=== PATIENT | male | born 1940 | race Caucasian/White ===

== ENCOUNTER → 2017-08-27 | Outpatient (CLI) | payer MEDICARE ==
--- NOTE | 2017-08-27 13:10 | US ---
EXAMINATION TYPE: US venous doppler duplex LE DATE OF EXAM: 08/27/2017 12:52 PM COMPARISON: NONE CLINICAL HISTORY: R60.9 Edema;Bilateral lower leg edema and skin ulcerations with left skin redness. SIDE PERFORMED: Bilateral TECHNIQUE: The lower extremity deep venous system is examined utilizing real time linear array sonog ana luisa with graded compression, doppler sonography and color-flow sonography. VESSELS IMAGED: Common Femoral Vein Deep Femoral Vein Greater Saphenous Vein * Femoral Vein Popliteal Vein Small Saphenous Vein * Proximal Calf Veins (* superficial vessels) Grayscale, color doppler, spectral doppler imaging performed of the deep veins of the lower extremiti es. There is normal flow, compressibility, vascular waveforms. Right Leg: Negative for DVT Left Leg: Negative for DVT Bilateral lower leg edema channels are noted. IMPRESSION: No evidence for a DVT.
== END | disposition home or self-care (01) ==
LOC: RADUSWWP 11:45
PROVIDERS: ATTEND Family Medicine
DX: R60.9 Edema, unspecified (principal)
CPT/HCPCS: 93970

== ENCOUNTER 2018-10-03 12:46 | Inpatient (IN) | payer MEDICARE ==
[2018-10-03] MEDS ORDERED: IPRATROPIUM-ALBUTEROL 3 ML NEB INHALATION STA (13:20)
[2018-10-03] MEDS ORDERED: methylPREDNISolone SOD SUCCI 125 MG/2 ML VIAL IV STA (13:20)
--- NOTE | 2018-10-03 13:25 | ED ---
General Adult HPI - General Chief complaint: Shortness of Breath Stated complaint: Diff Breathing Time Seen by Provider: 10/03/18 13:05 Source: patient, RN notes reviewed Mode of arrival: wheelchair Limitations: no limitations - History of Present Illness Initial comments: Patient is a pleasant 78-year-old male presenting to the emergency department with difficulty breathing. Symptoms started several days ago. Patient concerned he could have pneumonia. Patient was seen by Dr. Mitchell who did transfer the patient to the emergency department. Patient states he does have occasional cough that is nonproductive. Patient denies any fevers. No chest pain. No leg pain or leg swelling. Patient does have a history of somewhat similar symptoms previously associated with his "asthma" - Related Data Home Medications Medication Instructions Recorded Confirmed Isosorbide Dinitrate [Isordil] 40 mg PO BID 04/03/16 10/03/18 Lisinopril [Zestril] 20 mg PO HS 04/03/16 10/03/18 Simvastatin [Zocor] 20 mg PO HS 04/03/16 10/03/18 amLODIPine BESYLATE [Norvasc] 10 mg PO DAILY 04/03/16 10/03/18 traMADol HCL [Ultram] 50 mg PO QID 04/03/16 10/03/18 Albuterol Inhaler [Ventolin Hfa 1 puff INHALATION RT-QID PRN 10/03/18 10/03/18 Inhaler] Budesonide/Formoterol Fumarate 2 puff INHALATION RT-BID 10/03/18 10/03/18 [Symbicort 160-4.5 Mcg Inhaler] Lisinopril [Zestril] 10 mg PO DAILY 10/03/18 10/03/18 Naloxone HCl [Narcan] 4 mg NASAL ONCE PRN 10/03/18 10/03/18 Nitroglycerin Sl Tabs [Nitrostat] 0.4 mg SUBLINGUAL Q5M PRN 10/03/18 10/03/18 Allergies Allergy/AdvReac Type Severity Reaction Status Date / Time No Known Allergies Allergy Verified 10/03/18 12:56 Review of Systems ROS Statement: Those systems with pertinent positive or pertinent negative responses have been documented in the HPI. ROS Other: All systems not noted in ROS Statement are negative. 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 Other surgical hx: DEBRIDEMENT OF LEFT CALF/LEG, umbilical hernia repair, lumbar spine surgery. Past Anesthesia/Blood Transfusion Reactions: No Reported Reaction, Motion Sickness Past Psychological History: No Psychological Hx Reported Smoking Status: Former smoker Past Alcohol Use History: None Reported Past Drug Use History: None Reported - Past Family History Mother History Unknown: Yes Father History Unknown: Yes General Exam Limitations: no limitations General appearance: alert, in no apparent distress Head exam: Present: normocephalic Eye exam: Present: normal appearance ENT exam: Present: normal oropharynx Neck exam: Present: normal inspection Respiratory exam: Present: wheezes, decreased breath sounds Cardiovascular Exam: Present: tachycardia GI/Abdominal exam: Present: soft. Absent: tenderness Extremities exam: Present: normal inspection. Absent: pedal edema, calf tenderness Neurological exam: Present: alert Psychiatric exam: Present: normal affect, normal mood Skin exam: Present: normal color Course Vital Signs 10/03/18 10/03/18 10/03/18 12:53 13:30 13:41 Temperature 98.1 F Pulse Rate 91 123 H 126 H Respiratory 22 Rate Blood Pressure 116/50 O2 Sat by Pulse 96 Oximetry 10/03/18 10/03/18 10/03/18 13:53 14:30 14:36 Temperature Pulse Rate 124 H 114 H Respiratory 24 44 H 28 H Rate Blood Pressure 136/81 136/81 O2 Sat by Pulse 96 92 L Oximetry 10/03/18 15:00 Temperature Pulse Rate 111 H Respiratory 28 H Rate Blood Pressure 139/70 O2 Sat by Pulse 95 Oximetry - Reevaluation(s) Reevaluation #1: 10/03/18 16:15 There is concern for possible sepsis diagnosed at 1615. Blood culture and lactic acid and IV antibiotics have been ordered. EKG Findings - EKG Comments: EKG Findings:: Sinus tachycardia 125. NM 178. QRS 88. QT 376. QTc 542. Normal axis. Normal QRS. No acute ST change. Medical Decision Making - Medical Decision Making Attempting to call in nuclear medicine for VQ scan. Patient will be covered with heparin pending results. Case was discussed in detail with Dr. Edwards, covering for Dr. Mitchell, who will admit. Patient was reevaluated and updated. - Lab Data Result diagrams: 10/03/18 13:50 10/03/18 13:50 Lab Results 10/03/18 10/03/18 10/03/18 Range/Units 13:50 13:50 13:50 WBC 21.4 H (3.8-10.6) k/uL RBC 5.58 (4.30-5.90) m/uL Hgb 16.4 (13.0-17.5) gm/dL Hct 48.7 (39.0-53.0) % MCV 87.3 (80.0-100.0) fL MCH 29.4 (25.0-35.0) pg MCHC 33.7 (31.0-37.0) g/dL RDW 13.6 (11.5-15.5) % Plt Count 262 (150-450) k/uL Neutrophils % 89 % Lymphocytes % 4 % Monocytes % 5 % Eosinophils % 1 % Basophils % 0 % Neutrophils # 19.1 H (1.3-7.7) k/uL Lymphocytes # 0.8 L (1.0-4.8) k/uL Monocytes # 1.0 (0-1.0) k/uL Eosinophils # 0.2 (0-0.7) k/uL Basophils # 0.0 (0-0.2) k/uL PT (9.0-12.0) sec INR (<1.2) APTT (22.0-30.0) sec D-Dimer (<0.60) mg/L FEU Sodium 135 L (137-145) mmol/L Potassium 4.1 (3.5-5.1) mmol/L Chloride 100 (98-107) mmol/L Carbon Dioxide 23 (22-30) mmol/L Anion Gap 12 mmol/L BUN 51 H (9-20) mg/dL Creatinine 1.58 H (0.66-1.25) mg/dL Est GFR (CKD-EPI)AfAm 48 (>60 ml/min/1.73 sqM) Est GFR (CKD-EPI)NonAf 42 (>60 ml/min/1.73 sqM) Glucose 135 H (74-99) mg/dL Calcium 8.7 (8.4-10.2) mg/dL Total Bilirubin 2.1 H (0.2-1.3) mg/dL AST 88 H (17-59) U/L ALT 57 (21-72) U/L Alkaline Phosphatase 193 H (38-126) U/L Total Creatine Kinase 75 (55-170) U/L CK-MB (CK-2) 1.2 (0.0-2.4) ng/mL CK-MB (CK-2) Rel Index 1.6 Troponin I 0.065 H* (0.000-0.034) ng/mL NT-Pro-B Natriuret Pep pg/mL Total Protein 7.7 (6.3-8.2) g/dL Albumin 3.1 L (3.5-5.0) g/dL 10/03/18 10/03/18 Range/Units 13:50 13:50 WBC (3.8-10.6) k/uL RBC (4.30-5.90) m/uL Hgb (13.0-17.5) gm/dL Hct (39.0-53.0) % MCV (80.0-100.0) fL MCH (25.0-35.0) pg MCHC (31.0-37.0) g/dL RDW (11.5-15.5) % Plt Count (150-450) k/uL Neutrophils % % Lymphocytes % % Monocytes % % Eosinophils % % Basophils % % Neutrophils # (1.3-7.7) k/uL Lymphocytes # (1.0-4.8) k/uL Monocytes # (0-1.0) k/uL Eosinophils # (0-0.7) k/uL Basophils # (0-0.2) k/uL PT 11.2 (9.0-12.0) sec INR 1.2 H (<1.2) APTT 23.5 (22.0-30.0) sec D-Dimer 6.36 H (<0.60) mg/L FEU Sodium (137-145) mmol/L Potassium (3.5-5.1) mmol/L Chloride (98-107) mmol/L Carbon Dioxide (22-30) mmol/L Anion Gap mmol/L BUN (9-20) mg/dL Creatinine (0.66-1.25) mg/dL Est GFR (CKD-EPI)AfAm (>60 ml/min/1.73 sqM) Est GFR (CKD-EPI)NonAf (>60 ml/min/1.73 sqM) Glucose (74-99) mg/dL Calcium (8.4-10.2) mg/dL Total Bilirubin (0.2-1.3) mg/dL AST (17-59) U/L ALT (21-72) U/L Alkaline Phosphatase (38-126) U/L Total Creatine Kinase (55-170) U/L CK-MB (CK-2) (0.0-2.4) ng/mL CK-MB (CK-2) Rel Index Troponin I (0.000-0.034) ng/mL NT-Pro-B Natriuret Pep 1000 pg/mL Total Protein (6.3-8.2) g/dL Albumin (3.5-5.0) g/dL - Radiology Data Radiology results: image reviewed (Chest x-ray shows no acute process) Critical Care Time Critical Care Time: Yes Total Critical Care Time: 32 Disposition Clinical Impression: Acute exacerbation of chronic obstructive pulmonary disease (COPD), Sepsis Disposition: ADMITTED IP TO THIS HOSP Is patient prescribed a controlled substance at d/c from ED?: No Referrals: Mark Mitchell MD [Primary Care Provider] - 1-2 days Decision Time: 16:14
[2018-10-03 14:18] LABS: Basophils % (A) 0 %; Eosinophils # (A) 0.2 k/uL (0-0.7); Eosinophils % (A) 1 %; HCT 48.7 % (39.0-53.0); HGB 16.4 gm/dL (13.0-17.5); Lymphocytes # (A) 0.8 k/uL (1.0-4.8); Lymphocytes % (A) 4 %; MCH 29.4 pg (25.0-35.0); MCHC 33.7 g/dL (31.0-37.0); MCV 87.3 fL (80.0-100.0); Monocytes % (A) 5 %; Neutrophils # (A) 19.1 k/uL (1.3-7.7); Neutrophils % (A) 89 %; Platelet Count 262 k/uL (150-450); RBC 5.58 m/uL (4.30-5.90); RDW 13.6 % (11.5-15.5); WBC 21.4 k/uL (3.8-10.6)
--- NOTE | 2018-10-03 14:24 | XR ---
EXAMINATION TYPE: XR chest 2V DATE OF EXAM: 10/03/2018 COMPARISON: PET/CT March 24, 2016 HISTORY: Difficulty breathing, cough and congestion. History of melanoma TECHNIQUE: Frontal and lateral views of the chest are obtained. FINDINGS: There is chronic parenchymal change without suspicious focal air space opacity, pleural ef fusion, or pneumothorax seen. The cardiac silhouette size is upper limits of normal. Multilevel spur ring in thoracic spine is present. IMPRESSION: No suspicious acute pulmonary process.
[2018-10-03 14:27] LABS: Albumin 3.1 g/dL (3.5-5.0); Calcium 8.7 mg/dL (8.4-10.2); Potassium 4.1 mmol/L (3.5-5.1); Total Bilirubin 2.1 mg/dL (0.2-1.3); Total Protein 7.7 g/dL (6.3-8.2)
[2018-10-03 14:55] LABS: Creatine Kinase MB 1.2 ng/mL (0.0-2.4)
[2018-10-03 14:56] LABS: Troponin I 0.065 ng/mL (0.000-0.034)
[2018-10-03 15:08] LABS: INR 1.2 (<1.2); Partial Thromboplastin Time 23.5 sec (22.0-30.0); Prothrombin Time 11.2 sec (9.0-12.0)
[2018-10-03 15:15] LABS: D-Dimer 6.36 mg/L FEU (<0.60)
[2018-10-03] MEDS ORDERED: HEPARIN SODIUM,PORCINE 10,000 UNIT/ML 1 ML VIAL IV ONE (16:15)
[2018-10-03] MEDS ORDERED: HEPARIN SODIUM,PORCINE 5,000 UNIT/ML 1 ML VIAL IV PRN (16:15)
[2018-10-03] MEDS ORDERED: LEVOFLOXACIN 750MG-D5W PMX 750 MG in DEXTROSE/WATER 1 150ML.BAG IVPB STA (16:16)
[2018-10-03] MEDS ORDERED: IPRATROPIUM-ALBUTEROL 3 ML NEB INHALATION PRN (16:17)
[2018-10-03] MEDS ORDERED: NALOXONE 0.4 MG/ML 1 ML VIAL IV PRN (16:18)
[2018-10-03] MEDS ORDERED: SODIUM CHLORIDE 0.9% 1,000 ML IV STA (16:21)
[2018-10-03] MEDS ORDERED: NITROGLYCERIN SL TABS 0.4 MG TAB SUBLINGUAL PRN (18:07)
[2018-10-03] MEDS ORDERED: NON-FORMULARY DRUG (Naloxone Hcl [Narcan] 4 MG) NASAL PRN (18:07)
[2018-10-03] MEDS ORDERED: ACETAMINOPHEN TAB 500 MG TAB PO PRN (18:10)
[2018-10-03] MEDS ORDERED: ALPRAZolam 0.25 MG TAB PO PRN (18:10)
[2018-10-03] MEDS: methylPREDNISolone SOD SUCCI 125 MG/2 ML VIAL IV SCH ×2 (18:29→22:58)
[2018-10-03] MEDS: HEPARIN SOD,PORK IN 0.45% NACL 25,000 UNIT in 0.45% NACL 1 500ML.BAG IV SCH (18:33)
[2018-10-03] MEDS: IPRATROPIUM-ALBUTEROL 3 ML NEB INHALATION SCH (19:43)
[2018-10-03] MEDS: traMADol 50 MG TAB PO SCH ×2 (19:50→22:52)
[2018-10-03] MEDS: LISINOPRIL 20 MG TAB PO SCH (19:50)
[2018-10-03] MEDS: ATORVASTATIN 10 MG TAB PO SCH (19:50)
[2018-10-03] MEDS: INSULIN ASPART 100 UNIT/ML 1 ML 10 ML VIAL SQ SCH (20:57)
[2018-10-03 20:58] LABS: Glucose,Whole Blood 122 mg/dL (75-99)
--- NOTE | 2018-10-03 21:14 | HP ---
HISTORY AND PHYSICAL DATE OF SERVICE: 10/03/2018 CHIEF COMPLAINT: Shortness of breath with cough. HISTORY OF PRESENT ILLNESS: This 78-year-old gentleman with past medical history of multiple medical problems including asthma, CVA, hypertension, hyperlipidemia, myocardial infarction, history of DJD, history of CVA, hernia surgery being followed by Dr. Mitchell in the outpatient setting was not feeling well for the past several days. The patient was having increased shortness of breath and cough and sputum. Patient went to Dr. Mitchell's office. Pneumonia was suspected. Patient recommended to follow with the ER. WBC elevated 21.4. Creatinine is 1.58. Plasma lactic acid 2.5 and AST is 88 and troponin is only 0.065 and patient was admitted to the hospital for further evaluation and treatment. There is no history of chest pain. No history of palpitations, headache, loss of consciousness or seizures. PAST MEDICAL HISTORY: History of COPD, history of CVA, TIA, hypertension, hyperlipidemia, history of DJD, history of appendectomy, hernia repair, MEDICATIONS ARE: Prior to admission include: 1. Ultram 50 mg q.i.d. 2. Norvasc 10 mg p.o. daily. 3. Zocor 20 mg q.h.s. 4. Nitro 0.4 sublingual p.r.n. 5. Narcan 0.4 mg p.r.n. 6. Zestril 10 mg. 7. Zestril 20 mg q.h.s. 8. Isordil 40 mg daily. 9. Symbicort 160/4.5 two puffs b.i.d. 10.Ventolin 1 puff q.i.d. p.r.n. ALLERGIES: None. FAMILY HISTORY: Family history unknown. SOCIAL HISTORY: Previous history of smoking. No history of current smoking. No alcohol intake. REVIEW OF SYSTEMS: ENT: Diminished hearing. Diminished vision. CARDIOVASCULAR: Mentioned earlier. RESPIRATORY: As mentioned earlier. GI: No nausea or vomiting. no dysuria. Nervous System: No numbness or weakness. Allergy/Immunology: Mentioned earlier. Musculoskeletal: As mentioned earlier. Hematology/Oncology: No history of anemia. Endocrine: No history of diabetes or hypothyroidism. CONSTITUTIONAL: As mentioned earlier. Dermatology: Negative. Rheumatology: Negative. Psychiatry: As mentioned earlier. PHYSICAL EXAMINATION: Alert and oriented times three. Pulse is 101. Blood pressure 149/77, respiration 29, temperature normal, pulse ox is 94% on room air. HEENT: Conjunctivae normal. Oral mucosa moist. Neck is no jugular venous distention. No carotid bruit. No lymph node enlargement. CARDIOVASCULAR SYSTEM: S1, S2 muffled. RESPIRATORY SYSTEM: Breath sounds diminished at the bases. A few scattered rhonchi and crackles. Breathing efforts increased. ABDOMEN: Soft, nontender. No mass palpable. Legs no edema. No swelling. NERVOUS SYSTEM: Higher functions as mentioned earlier. Moves all 4 limbs. No focal motor or sensory deficits. Lymphatics: No lymph nodes palpable in the neck, axillae or groin. SKIN: No ulcer, rash or bleeding. LAB STUDIES: WBC 21.4, sodium 135, creatinine 1.5. ASSESSMENT: 1. Shortness of breath with possibly asthma, chronic obstructive pulmonary disease, acute exacerbation with possible acute purulent tracheobronchitis or bronchopneumonia. 2. Increased WBC. 3. Increased D-dimer. 4. Hyponatremia. 5. Increased creatinine with chronic kidney stage III. 6. Increased plasma lactic acid. 7. Increased AST. 8. Troponin 0.06 indeterminate. 9. Remote history of nicotine dependence. 10.History of hypertension. 11.History of hyperlipidemia. 12.History of degenerative joint disease. 13.History of coronary artery disease. 14.Myocardial infarction. 15.History of cerebrovascular accident with left-sided weakness. 16.Wound of the left lower leg. 17.History of melanoma. RECOMMENDATIONS AND DISCUSSION: In this 78-year-old gentleman who presented with multiple complex medical issues , we will monitor the patient closely, continue the current medications, management and symptomatic treatment. We will initiate broad-spectrum antibiotics, bronchodilators, steroids have been initiated. Recommend pulmonary consultation. Cardiology has been consulted because of the elevated troponin. The EKG done in the ER showed tachycardia, probably sinus tachycardia. Recommend to continue the current medications. I would also recommend a 2D echo with Doppler in the morning along with Cardiology. Prognosis guarded because of multiple complex medical issues. DVT prophylaxis. scale. Further recommendations to follow. Discussed with the patient. MMODL / IJN: [id number] / MTDD
[2018-10-03 21:23] LABS: Creatine Kinase MB 1.3 ng/mL (0.0-2.4)
[2018-10-03] MEDS ORDERED: SODIUM CHLORIDE 0.9% 500 ML 500 ML IV ONE (21:24)
[2018-10-03 21:29] LABS: Troponin I 0.061 ng/mL (0.000-0.034)
[2018-10-03] MEDS: SODIUM CHLORIDE 0.9% 1,000 ML IV SCH (22:05)
[2018-10-03] MEDS: ISOSORBIDE DINITRATE 20 MG TAB PO SCH (22:52)
[2018-10-04 01:54] LABS: HCT 42.9 % (39.0-53.0); MCH 29.4 pg (25.0-35.0); MCHC 32.7 g/dL (31.0-37.0); MCV 89.9 fL (80.0-100.0); Platelet Count 240 k/uL (150-450); RBC 4.77 m/uL (4.30-5.90); RDW 13.9 % (11.5-15.5); WBC 19.3 k/uL (3.8-10.6)
[2018-10-04 02:10] LABS: Calcium 7.9 mg/dL (8.4-10.2)
[2018-10-04 02:26] LABS: Creatine Kinase MB 1.5 ng/mL (0.0-2.4)
[2018-10-04 02:48] LABS: Troponin I 0.037 ng/mL (0.000-0.034)
[2018-10-04 04:57] LABS: Hemoglobin A1C 5.9 % (4.0-6.0)
[2018-10-04] MEDS: HEPARIN SOD,PORK IN 0.45% NACL 25,000 UNIT in 0.45% NACL 1 500ML.BAG IV SCH ×2 (06:20→16:26)
[2018-10-04] MEDS: methylPREDNISolone SOD SUCCI 125 MG/2 ML VIAL IV SCH ×3 (06:20→18:12)
[2018-10-04] MEDS: PANTOPRAZOLE 40 MG TABLET PO SCH (06:21)
[2018-10-04 06:31] LABS: Basophils % (A) 0 %; Eosinophils % (A) 0 %; HCT 42.7 % (39.0-53.0); HGB 14.3 gm/dL (13.0-17.5); Lymphocytes # (A) 0.7 k/uL (1.0-4.8); Lymphocytes % (A) 3 %; MCH 29.8 pg (25.0-35.0); MCHC 33.4 g/dL (31.0-37.0); MCV 89.2 fL (80.0-100.0); Monocytes # (A) 0.5 k/uL (0-1.0); Monocytes % (A) 2 %; Neutrophils # (A) 18.7 k/uL (1.3-7.7); Neutrophils % (A) 93 %; Platelet Count 225 k/uL (150-450); RBC 4.79 m/uL (4.30-5.90); RDW 13.8 % (11.5-15.5)
[2018-10-04 06:34] LABS: Glucose,Whole Blood 144 mg/dL (75-99)
[2018-10-04 06:38] LABS: Albumin 2.6 g/dL (3.5-5.0); Potassium 3.7 mmol/L (3.5-5.1); Total Bilirubin 0.9 mg/dL (0.2-1.3); Total Protein 6.4 g/dL (6.3-8.2)
[2018-10-04] MEDS: INSULIN ASPART 100 UNIT/ML 1 ML 10 ML VIAL SQ SCH ×4 (06:45→20:42)
[2018-10-04] MEDS: amLODIPine 10 MG TAB PO SCH (09:35)
[2018-10-04] MEDS: ISOSORBIDE DINITRATE 20 MG TAB PO SCH ×2 (09:35→20:51)
[2018-10-04] MEDS: LISINOPRIL 10 MG TAB PO SCH (09:35)
[2018-10-04] MEDS: IPRATROPIUM-ALBUTEROL 3 ML NEB INHALATION SCH ×4 (09:50→19:57)
[2018-10-04 11:34] LABS: Glucose,Whole Blood 150 mg/dL (75-99)
[2018-10-04] MEDS: traMADol 50 MG TAB PO SCH ×4 (12:31→21:51)
--- NOTE | 2018-10-04 14:37 | ECHOF ---
Referral Reason:chf MEASUREMENTS -------- HEIGHT: 182.9 cm WEIGHT: 118.8 kg BP: 111/60 IVSd: 1.5 cm (0.6 - 1.1) LVIDd: 4.1 cm (3.9 - 5.3) LVPWd: 1.6 cm (0.6 - 1.1) EDV(Teich): 76 ml IVSs: 2.0 cm LVIDs: 3.0 cm LVPWs: 1.8 cm %IVS Thck: 33 % ESV(Teich): 35 ml EF(Teich): 54 % %FS: 28 % SV(Teich): 41 ml LA Diam: 3.2 cm (2.7 - 3.8) RVIDd: 4.1 cm (< 3.3) Ao Diam: 3.9 cm (2.0 - 3.7) AV Cusp: 2.4 cm (1.5 - 2.6) EPSS: 1.0 cm MV E Seth: 0.75 m/s MV DecT: 305 ms MV Dec Hale: 2.4 m/s MV A Seth: 1.00 m/s MV E/A Ratio: 0.75 MV PHT: 88 ms AV Vmax: 1.68 m/s AV maxP.30 mmHg MV EF SLOPE: 92.03 mm/s (70 - 150) MV EXCURSION: 19.09 mm (> 18.000) FINDINGS -------- Sinus rhythm. This was a technically difficult study with suboptimal views. The left ventricular size is normal. There is moderate concentric left ventricular hypertrophy. O verall left ventricular systolic function is normal with, an EF between 55 - 60 %. The right ventricle is mild to moderately enlarged. The left atrium is normal in size. The right atrium was not well visualized. 5 ml of Lumason was utilized for enhancement of images. There is mild aortic valve sclerosis. The mitral valve is normal. The tricuspid valve was not well visualized. The pulmonic valve was not well visualized. The aortic root is dilated measuring 3.9cm. Normal inferior vena cava with normal inspiratory collapse consistent with estimated right atrial pre ssure of 5 mmHg. There is no pericardial effusion. CONCLUSIONS -------- 1. Sinus rhythm. 2. This was a technically difficult study with suboptimal views. 3. The left ventricular size is normal. 4. There is moderate concentric left ventricular hypertrophy. 5. Overall left ventricular systolic function is normal with, an EF between 55 - 60 %. 6. The right ventricle is mild to moderately enlarged. 7. The left atrium is normal in size. 8. The right atrium was not well visualized. 9. 5 ml of Lumason was utilized for enhancement of images. 10. There is mild aortic valve sclerosis. 11. The mitral valve is normal. 12. The tricuspid valve was not well visualized. 13. The pulmonic valve was not well visualized. 14. The aortic root is dilated measuring 3.9cm. 15. Normal inferior vena cava with normal inspiratory collapse consistent with estimated right atrial pressure of 5 mmHg. 16. There is no pericardial effusion. HEMMER LOCKSTITCH: Francoise Rogers RDCS
--- NOTE | 2018-10-04 14:59 | P.CNPUL ---
History of Present Illness Consult date: 10/04/18 Requesting physician: Joan Edwards Reason for consult: dyspnea Chief complaint: Shortness of breath, mild cough History of present illness: This is 78-year-old white male patient of Dr. Mitchell, who into the emergency department on 10/03/2018 for evaluation of 2 week history of increased shortness of breath that was not getting any better, some mild cough. Patient was concerned about a possibility of pneumonia. Did see Dr. Mitchell who directed the patient for evaluation in the emergency department. Patient's cough is nonproductive, patient denies any fever or chills, no chest tenderness, no hemoptysis. Patient is an ex-smoker, he quit smoking in 1992, but prior to that smoked for 50 years at 1-1/2 packs daily. 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 Patient 9 any urinary symptoms, he does have a wound on his left toe which is draining. He apparently goes for treatments at [facility] wound [facility]. Chest x-ray showed no suspicious acute pulmonary process. Lab work on admission did show leukocytosis, with WBC of 21.4, hemoglobin was 16.4, INR was 1.2, d-dimer was +6.36, sodium was 135, the rest of electrolytes were within normal limits, BUN was 51 and creatinine was 1.58. Patient had mild lactic acidosis with a lactic acid of 2.5, which subsequently increased to 3.0, and is currently within normal limit at 1.8 after fluid resuscitation, patient did have positive troponins of 0.065, 0.061, 0.037. he denied any chest pain. EKG showed sinus tachycardia, patient has been afebrile. 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 Echocardiogram was obtained and showed EF of 55-60%. During her evaluation patient is awake and alert, sitting up on the edge of the bed, in no acute distress. He states his shortness of breath is improving, no fever, no chills, has an occasional mild nonproductive cough. He on IV heparin infusion at 18 units per kilo per hour, and 0.9 normal saline at a rate of 50 ML per hour, and antibiotic coverage includes Levaquin. Lung sounds are clear to auscultation, no wheezing, no rhonchi no rales noted. Patient is on Symbicort and albuterol inhaler at home. No oxygen on a regular basis. Review of Systems All systems: negative Constitutional: Denies chills, Denies fever Eyes: denies blurred vision, denies pain Ears, nose, mouth and throat: Denies headache, Denies sore throat Cardiovascular: Denies chest pain, Denies shortness of breath Respiratory: Reports dyspnea, Denies cough Gastrointestinal: Denies abdominal pain, Denies diarrhea, Denies nausea, Denies vomiting Musculoskeletal: Denies myalgias Integumentary: Denies pruritus, Denies rash Neurological: Denies numbness, Denies weakness Psychiatric: Denies anxiety, Denies depression Endocrine: Denies fatigue, Denies weight change Past Medical History Past Medical History: Asthma, CVA/TIA, Hyperlipidemia, Hypertension, Myocardial Infarction ([place]), Osteoarthritis (OA) Additional Past Medical History / Comment(s): CVA 1992-left side weakness- uses mostly the wheelchair but able to use cane/walker as well, pastwound on lower left leg- treated at [facility] wound center,past venous leg ulcers melanoma back and basal skin cancer L shoulder. Last Myocardial Infarction Date:: 2008 History of Any Multi-Drug Resistant Organisms: None Reported Date of last positivie culture/infection: 04/03/16 MDRO Source:: LEFT LEG Past Surgical History: Appendectomy, Hernia Repair, Orthopedic Surgery Additional Past Surgical History / Comment(s): 05/01/16 Wide exicision melanoma back, excision lesion L shoulder basal cancer. Other surgical hx: DEBRIDEMENT OF LEFT CALF/LEG, umbilical hernia repair, lumbar spine surgery. Past Anesthesia/Blood Transfusion Reactions: No Reported Reaction, Motion Sickness Smoking Status: Former smoker - Past Family History Mother History Unknown: Yes Father History Unknown: Yes Medications and Allergies Home Medications Medication Instructions Recorded Confirmed Type Isosorbide Dinitrate [Isordil] 40 mg PO BID 04/03/16 10/03/18 History Lisinopril [Zestril] 20 mg PO HS 04/03/16 10/03/18 History Simvastatin [Zocor] 20 mg PO HS 04/03/16 10/03/18 History amLODIPine BESYLATE [Norvasc] 10 mg PO DAILY 04/03/16 10/03/18 History traMADol HCL [Ultram] 50 mg PO QID 04/03/16 10/03/18 History Albuterol Inhaler [Ventolin Hfa 1 puff INHALATION RT-QID PRN 10/03/18 10/03/18 History Inhaler] Budesonide/Formoterol Fumarate 2 puff INHALATION RT-BID 10/03/18 10/03/18 History [Symbicort 160-4.5 Mcg Inhaler] Lisinopril [Zestril] 10 mg PO DAILY 10/03/18 10/03/18 History Naloxone HCl [Narcan] 4 mg NASAL ONCE PRN 10/03/18 10/03/18 History Nitroglycerin Sl Tabs [Nitrostat] 0.4 mg SUBLINGUAL Q5M PRN 10/03/18 10/03/18 History Allergies Allergy/AdvReac Type Severity Reaction Status Date / Time No Known Allergies Allergy Verified 10/03/18 12:56 Physical Exam Vitals: Vital Signs Temp Pulse Pulse Resp BP BP Pulse Ox 10/04/18 12:00 90 18 114/60 96 10/04/18 10:01 95 10/04/18 09:50 100 10/04/18 08:00 97.7 F 90 20 117/55 97 10/04/18 03:53 97.8 F 99 18 111/60 97 10/03/18 22:55 98.3 F 89 20 131/71 97 10/03/18 20:00 97.8 F 95 24 130/69 97 10/03/18 19:51 92 10/03/18 19:43 89 18 95 10/03/18 19:07 98.3 F 10/03/18 18:30 112 H 26 H 129/92 96 10/03/18 18:00 112 H 20 120/76 96 10/03/18 17:30 105 H 28 H 120/76 97 10/03/18 17:00 104 H 28 H 140/97 95 10/03/18 16:30 101 H 29 H 140/97 94 L 10/03/18 16:00 110 H 24 109/67 95 10/03/18 15:30 104 H 28 H 109/67 94 L 10/03/18 15:00 111 H 28 H 139/70 95 Intake and Output 10/03/18 10/04/18 10/04/18 22:59 06:59 14:59 Intake Total 201.93 298.07 590.114 Output Total 310 Balance 201.93 -11.93 590.114 Intake: IV 20 Invasive Line 1 20 Intake, IV Titration 201.93 298.07 150.114 Amount Heparin Sod,Pork in 0.45% 201.93 298.07 150.114 NaCl 25,000 unit In 0.45 % NaCl 1 500ml.bag @ 16 UNITS/KG/HR 45.72 mls/hr IV .[id number] [facility] Rx#: [id number] Oral 420 Output: Urine 310 Other: Voiding Method Diaper Diaper Diaper # Voids 1 1 2 # Bowel Movements 1 1 Weight 119 kg 147 kg GENERAL EXAM: Alert, pleasant, 78-year-old obese white male comfortable in no apparent distress. HEAD: Normocephalic/atraumatic. EYES: Normal reaction of pupils, equal size. Conjunctiva pink, sclera white. NOSE: Clear with pink turbinates. THROAT: No erythema or exudates. NECK: No masses, no JVD, no thyroid enlargement, no adenopathy. CHEST: No chest wall deformity. Symmetrical expansion. LUNGS: Equal air entry with no crackles, wheeze, rhonchi or dullness. CVS: Regular rate and rhythm, normal S1 and S2, no gallops, no murmurs, no rubs ABDOMEN: Soft, nontender. No hepatosplenomegaly, normal bowel sounds, no guarding or rigidity. EXTREMITIES: No clubbing, no edema, no cyanosis, 2+ pulses and upper and lower extremities. MUSCULOSKELETAL: Muscle strength and tone normal. SPINE: No scoliosis or deformity SKIN: No rashes CENTRAL NERVOUS SYSTEM: Alert and oriented -3. No focal deficits, tone is normal in all 4 extremities. PSYCHIATRIC: Alert and oriented -3. Appropriate affect. Intact judgment and insight. Results - Laboratory Findings CBC and BMP: 10/04/18 06:02 10/04/18 06:02 PT/INR, D-dimer PT 11.2 sec (9.0-12.0) 10/03/18 13:50 INR 1.2 (<1.2) H 10/03/18 13:50 D-Dimer 6.36 mg/L FEU (<0.60) H 10/03/18 13:50 Abnormal lab findings: Abnormal Labs 10/03/18 10/03/18 10/03/18 13:50 13:50 13:50 WBC 21.4 H Neutrophils # 19.1 H Lymphocytes # 0.8 L INR APTT D-Dimer Sodium 135 L Carbon Dioxide BUN 51 H Creatinine 1.58 H Glucose 135 H POC Glucose (mg/dL) Plasma Lactic Acid Glen Calcium Total Bilirubin 2.1 H AST 88 H Alkaline Phosphatase 193 H Troponin I 0.065 H* Albumin 3.1 L 10/03/18 10/03/18 10/03/18 13:50 13:50 20:12 WBC Neutrophils # Lymphocytes # INR 1.2 H APTT D-Dimer 6.36 H Sodium Carbon Dioxide BUN Creatinine Glucose POC Glucose (mg/dL) Plasma Lactic Acid Glen 2.5 H* Calcium Total Bilirubin AST Alkaline Phosphatase Troponin I 0.061 H* Albumin 10/03/18 10/03/18 10/03/18 20:12 20:56 22:15 WBC Neutrophils # Lymphocytes # INR APTT 60.0 H D-Dimer Sodium Carbon Dioxide BUN Creatinine Glucose POC Glucose (mg/dL) 122 H Plasma Lactic Acid Glen 3.0 H* Calcium Total Bilirubin AST Alkaline Phosphatase Troponin I Albumin 10/04/18 10/04/18 10/04/18 01:22 01:22 01:22 WBC 19.3 H Neutrophils # Lymphocytes # INR APTT D-Dimer Sodium 135 L Carbon Dioxide 21 L BUN 88 H Creatinine 1.96 H Glucose 153 H POC Glucose (mg/dL) Plasma Lactic Acid Glen Calcium 7.9 L Total Bilirubin AST Alkaline Phosphatase Troponin I 0.037 H* Albumin 10/04/18 10/04/18 10/04/18 06:02 06:02 06:02 WBC 20.0 H Neutrophils # 18.7 H Lymphocytes # 0.7 L INR APTT 45.1 H D-Dimer Sodium 136 L Carbon Dioxide 20 L BUN 92 H Creatinine 1.81 H Glucose 158 H POC Glucose (mg/dL) Plasma Lactic Acid Glen Calcium 8.0 L Total Bilirubin AST 81 H Alkaline Phosphatase 127 H Troponin I Albumin 2.6 L 12/01/18 12/01/18 06:32 11:31 WBC Neutrophils # Lymphocytes # INR APTT D-Dimer Sodium Carbon Dioxide BUN Creatinine Glucose POC Glucose (mg/dL) 144 H 150 H Plasma Lactic Acid Glen Calcium Total Bilirubin AST Alkaline Phosphatase Troponin I Albumin - Diagnostic Findings Chest x-ray: report reviewed, image reviewed Additional studies: EKG reviewed echocardiogram reviewed Assessment and Plan Plan: Assessment: #1. Dyspnea, nonproductive cough, related to mild exacerbation of chronic obstructive pulmonary disease #2. Leukocytosis, lactic acidosis, shortness of breath, related to sepsis #3. Bacteremia with gram-negative bacilli, with sepsis #4. Lactic acidosis, improved with IV hydration #5. Acute kidney injury #6. Nicotine dependence, in remission, quit in 1992, prior to that smoked for 50 years of one half packs daily #7. Elevated troponins #8. Draining chronic left toe wound #9. Chronic left leg cellulitis, and patient follows in the wound clinic #10. History of CVA, with left-sided weakness #11. Gait dysfunction, uses cane #12. Hypertension, hyperlipidemia, previous episode of myocardial infarction #13. Osteoarthritis #14. History of melanoma on his back with excision and basal cancer on his right shoulder post-excision Plan: Continue current antibiotic coverage, chest x-ray has been reviewed by Dr. Phillips , no clear evidence of pneumonia. The source of patient's sepsis is under investigation, patient does have had draining wound on his left toe, he apparently follows with the wound care clinic. May benefit from infectious disease consultation. Patient will need outpatient follow-up will need PFT for his underlying COPD. Continue nebulized bronchodilators, continue Symbicort. Tinea current antibiotics, will await results of final cultures, patient is afebrile, lactic acidosis has resolved. Seen to follow I performed a history & physical examination of the patient and discussed their management with my nurse practitioner, Jacquelyn Lugo. I reviewed the nurse practitioner's note and agree with the documented findings and plan of care. Lung sounds are positive for clear. The findings and the impression was discussed with the patient. I attest to the documentation by the nurse practitioner. Time with Patient: Greater than 30
--- NOTE | 2018-10-04 15:19 | P.CRDCN ---
History of Present Illness History of present illness: This is a pleasant 78-year-old male past medical history significant for hypertension, dyslipidemia, CVA with left-sided weakness residual, former nicotine dependence and osteoarthritis. He follows with Dr. Zaldiavr in the office. He states approximately 3 weeks ago he started coughing and feeling increasingly short of breath. He states his cough is been quite nonproductive. He went to Dr. Mitchell's the office by C was concerned about possibility of pneumonia. He was sent to the hospital for further evaluation. He is seen and examined resting comfortably in bed in no acute distress. He denies symptoms of chest pain, shortness of breath, dizziness or palpitations. Echocardiogram has been obtained and reveals preserved left ventricular systolic function with ejection fraction 55-60%. He has been diagnosed with a mild exacerbation of COPD and sepsis and is currently receiving IV antibiotics. He also has a chronic wound on the left great toe which appears to be necrotic and has a very foul odor. EKG reveals sinus tachycardia heart rate 125 on admission with no acute ST or T wave abnormalities noted. Evidence of poor R-wave progression. Chest x-ray is negative for acute cardiopulmonary process. Laboratory data reviewed, WBC 19.3, hemoglobin 14, platelets 240, sodium 136, potassium 3.7, creatinine 1.1, lactic acid on admission 3.01.8 today, troponin 0.065, 0.061 and 0.037, NT proBNP 1000. He has also occult blood positive in the stool. Current cardiac medications include isosorbide dinitrate 40 mg twice a day, lisinopril 10 mg in the morning and 20 mg at bedtime, simvastatin 20 mg daily and Norvasc 10 mg daily. At the time of my exam: CONSTITUTIONAL: Denies fever. Denies chills. EYES: Denies blurred vision. Denies vision changes. Denies eye pain. EARS, NOSE, MOUTH & THROAT: Denies headache. Denies sore throat. Denies ear pain. CARDIOVASCULAR: Denies chest pain. Denies shortness of breath. Denies orthopnea. Denies PND. Denies palpitations. RESPIRATORY: Complains of cough. GASTROINTESTINAL: Denies abdominal pain. Denies diarrhea. Denies constipation. Denies nausea. Denies vomiting. MUSCULOSKELETAL: Denies myalgias. INTEGUMENTARY: Denies pruitis. Denies rash. NEUROLOGIC: Denies numbness. Denies tingling. Denies weakness. PSYCHIATRIC: Denies anxiety. Denies depression. ENDOCRINE: Denies fatigue. Denies weight change. Denies polydipsia. Denies polyurina. GENITOURINARY: Denies burning, hematuria or urgency with micturation. HEMATOLOGIC: Denies history of anemia. Denies bleeding. Blood pressure 114/60 heart rate 90 afebrile maintaining oxygen saturation on nasal cannula GENERAL: This is a 78-year-old occasion male in no apparent distress at the time of my examination. HEENT: Head is atraumatic, normocephalic. Pupils are equal, round. Sclerae anicteric. Conjunctivae are clear. Mucous membranes of the mouth are moist. Neck is supple. There is no jugular venous distention. No carotid bruit is heard. LUNGS: Clear to auscultation no wheezes, rales or rhonchi. No chest wall tenderness is noted on palpation or with deep breathing. HEART: Regular rate and rhythm without murmurs, rubs or gallops. S1 and S2 heard. ABDOMEN: Soft, nontender. Bowel sounds are heard. No organomegaly noted. EXTREMITIES: No evidence of peripheral edema and no calf tenderness noted. VASCULAR: Radial and dorsalis pedis pulses palpated, no evidence of clubbing. Evidence of chronic wound on the left great toe. NEUROLOGIC: Patient is awake, alert and oriented x3. ASSESSMENT Acute exacerbation of COPD Leukocytosis Mild troponin leak not indicative of an acute coronary event was likely secondary to infectious process. Hypertension Dyslipidemia History of prior myocardial infarction maintained on isosorbide PLAN Continue current medical regimen. Mild troponin leak not indicative of an acute coronary event and is likely secondary to infectious process. Patient is clinically euvolemic and there is no evidence of heart failure. We will continue to follow as needed. Please feel free to call with further questions or concerns. Follow-up with Dr. Zaldivar upon discharge. Thank you kindly for this consultation. Nurse Practitioner note has been reviewed, I agree with a documented findings and plan of care. Patient was seen and examined. Past Medical History Past Medical History: Asthma, CVA/TIA, Hyperlipidemia, Hypertension, Myocardial Infarction ([place]), Osteoarthritis ([place]) Additional Past Medical History / Comment(s): CVA 1992-left side weakness- uses mostly the wheelchair but able to use cane/walker as well, pastwound on lower left leg- treated at [facility] wound center,past venous leg ulcers melanoma back and basal skin cancer L shoulder. Last Myocardial Infarction Date:: 2008 History of Any Multi-Drug Resistant Organisms: None Reported Date of last positivie culture/infection: 04/03/16 MDRO Source:: LEFT LEG Past Surgical History: Appendectomy, Hernia Repair, Orthopedic Surgery Additional Past Surgical History / Comment(s): 05/01/16 Wide exicision melanoma back, excision lesion L shoulder basal cancer. Other surgical hx: DEBRIDEMENT OF LEFT CALF/LEG, umbilical hernia repair, lumbar spine surgery. Past Anesthesia/Blood Transfusion Reactions: No Reported Reaction, Motion Sickness Smoking Status: Former smoker - Past Family History Mother History Unknown: Yes Father History Unknown: Yes Medications and Allergies Home Medications Medication Instructions Recorded Confirmed Type Isosorbide Dinitrate [Isordil] 40 mg PO BID 04/03/16 10/03/18 History Lisinopril [Zestril] 20 mg PO HS 04/03/16 10/03/18 History Simvastatin [Zocor] 20 mg PO HS 04/03/16 10/03/18 History amLODIPine BESYLATE [Norvasc] 10 mg PO DAILY 04/03/16 10/03/18 History traMADol HCL [Ultram] 50 mg PO QID 04/03/16 10/03/18 History Albuterol Inhaler [Ventolin Hfa 1 puff INHALATION RT-QID PRN 10/03/18 10/03/18 History Inhaler] Budesonide/Formoterol Fumarate 2 puff INHALATION RT-BID 10/03/18 10/03/18 History [Symbicort 160-4.5 Mcg Inhaler] Lisinopril [Zestril] 10 mg PO DAILY 10/03/18 10/03/18 History Naloxone HCl [Narcan] 4 mg NASAL ONCE PRN 10/03/18 10/03/18 History Nitroglycerin Sl Tabs [Nitrostat] 0.4 mg SUBLINGUAL Q5M PRN 10/03/18 10/03/18 History Allergies Allergy/AdvReac Type Severity Reaction Status Date / Time No Known Allergies Allergy Verified 10/03/18 12:56 Physical Exam Vitals: Vital Signs Temp Pulse Pulse Resp BP BP Pulse Ox 10/04/18 12:00 90 18 114/60 96 10/04/18 10:01 95 10/04/18 09:50 100 10/04/18 08:00 97.7 F 90 20 117/55 97 10/04/18 03:53 97.8 F 99 18 111/60 97 10/03/18 22:55 98.3 F 89 20 131/71 97 10/03/18 20:00 97.8 F 95 24 130/69 97 10/03/18 19:51 92 10/03/18 19:43 89 18 95 10/03/18 19:07 98.3 F 10/03/18 18:30 112 H 26 H 129/92 96 10/03/18 18:00 112 H 20 120/76 96 10/03/18 17:30 105 H 28 H 120/76 97 10/03/18 17:00 104 H 28 H 140/97 95 10/03/18 16:30 101 H 29 H 140/97 94 L 10/03/18 16:00 110 H 24 109/67 95 10/03/18 15:30 104 H 28 H 109/67 94 L Intake and Output 10/04/18 10/04/18 10/04/18 06:59 14:59 22:59 Intake Total 298.07 590.114 Output Total 310 Balance -11.93 590.114 Intake: IV 20 Invasive Line 1 20 Intake, IV Titration 298.07 150.114 Amount Heparin Sod,Pork in 0.45% 298.07 150.114 NaCl 25,000 unit In 0.45 % NaCl 1 500ml.bag @ 16 UNITS/KG/HR 45.72 mls/hr IV .[id number] [facility]END[facility] TO [facility] Rx#: [id number] Oral 420 Output: Urine 310 Other: Voiding Method Diaper Diaper # Voids 1 2 # Bowel Movements 1 Weight 119 kg 147 kg Results 10/04/18 06:02 10/04/18 06:02 Cardiac Enzymes 10/03/18 10/04/18 10/04/18 Range/Units 20:12 01:22 06:02 AST 81 H (17-59) U/L CK-MB (CK-2) 1.3 1.5 (0.0-2.4) ng/mL Troponin I 0.061 H* 0.037 H* (0.000-0.034) ng/mL Coagulation 10/03/18 10/03/18 10/04/18 Range/Units 13:50 22:15 06:02 PT 11.2 (9.0-12.0) sec APTT 23.5 60.0 H 45.1 H (22.0-30.0) sec CBC 10/04/18 10/04/18 Range/Units 01:22 06:02 WBC 19.3 H 20.0 H (3.8-10.6) k/uL RBC 4.77 4.79 (4.30-5.90) m/uL Hgb 14.0 14.3 (13.0-17.5) gm/dL Hct 42.9 42.7 (39.0-53.0) % Plt Count 240 225 (150-450) k/uL Comprehensive Metabolic Panel 10/04/18 10/04/18 Range/Units 01:22 06:02 Sodium 135 L 136 L (137-145) mmol/L Potassium 4.0 3.7 (3.5-5.1) mmol/L Chloride 101 104 (98-107) mmol/L Carbon Dioxide 21 L 20 L (22-30) mmol/L BUN 88 H 92 H (9-20) mg/dL Creatinine 1.96 H 1.81 H (0.66-1.25) mg/dL Glucose 153 H 158 H (74-99) mg/dL Calcium 7.9 L 8.0 L (8.4-10.2) mg/dL AST 81 H (17-59) U/L ALT 56 (21-72) U/L Alkaline Phosphatase 127 H (38-126) U/L Total Protein 6.4 (6.3-8.2) g/dL Albumin 2.6 L (3.5-5.0) g/dL Current Medications Generic Name Dose Route Start Last Admin Trade Name Freq PRN Reason Stop Dose Admin Acetaminophen 500 mg 10/03/18 18:10 Tylenol Tab PO Q6HR PRN Fever and/ or Mild Pain Hydrocodone Bitart/Acetaminophen 1 each 10/03/18 18:10 [place] 5-325 PO Q6HR PRN Moderate Pain Albuterol/Ipratropium 3 ml 10/03/18 20:00 10/04/18 13:56 Duoneb 0.5 Mg-3 Mg/3 Ml Soln INHALATION Not Given RT-QID TEO Albuterol/Ipratropium 3 ml 10/03/18 16:17 Duoneb 0.5 Mg-3 Mg/3 Ml Soln INHALATION RT-Q4H PRN Shortness Of Breath Or Wheezing Alprazolam 0.25 mg 10/03/18 18:10 Xanax PO TID PRN Anxiety Amlodipine Besylate 10 mg 10/04/18 09:00 10/04/18 09:35 Norvasc PO 10 mg DAILY TEO Administration Atorvastatin Calcium 10 mg 10/03/18 21:00 10/03/18 19:50 Lipitor PO 10 mg HS TEO Administration Heparin Sodium (Porcine) 0 unit 10/03/18 16:15 10/04/18 09:37 Heparin IV 4,000 unit PER PROTOCOL PRN Administration Low PTT Protocol Heparin Sodium/Sodium Chloride 500 mls @ 45.72 mls/hr 10/03/18 16:15 09:37 25,000 unit/ Sodium Chloride IV 18 units/kg/hr .[id number] TEO 51.43 mls/hr Titration Protocol 16 UNITS/KG/HR Levofloxacin 750 mg/ IV 150 mls @ 100 mls/hr 10/04/18 18:00 Solution IVPB Q24H TEO Sodium Chloride 1,000 mls @ 50 mls/hr 10/03/18 21:30 10/03/18 22:05 Saline 0.9% IV 50 mls/hr .Q20H TEO Administration Insulin Aspart 0 unit 10/03/18 21:00 10/04/18 12:31 Novolog SQ 1 unit ACHS TEO Administration Protocol Isosorbide Dinitrate 40 mg 10/03/18 21:00 10/04/18 09:35 Isordil PO 40 mg BID TEO Administration Lisinopril 20 mg 10/03/18 21:00 10/03/18 19:50 Zestril PO 20 mg HS TEO Administration Lisinopril 10 mg 10/04/18 09:00 10/04/18 09:35 Zestril PO 10 mg DAILY TEO Administration Methylprednisolone Sodium Succinate 60 mg 10/03/18 18:00 10/04/18 12:30 Solu-Medrol IV 60 mg Q6HR TEO Administration Naloxone HCl 0.2 mg 10/03/18 16:18 Narcan IV Q2M PRN Opioid Reversal Nitroglycerin 0.4 mg 10/03/18 18:07 Nitrostat SUBLINGUAL Q5M PRN Chest Pain Pantoprazole Sodium 40 mg 10/04/18 07:30 10/04/18 06:21 Protonix PO 40 mg [id number] TEO Administration Temazepam 15 mg 10/03/18 18:10 Restoril PO HS PRN Insomnia Tramadol HCl 50 mg 10/03/18 18:15 10/04/18 14:10 Ultram PO Not Given QID TEO Intake and Output 10/04/18 10/04/18 10/04/18 06:59 14:59 22:59 Intake Total 298.07 590.114 Output Total 310 Balance -11.93 590.114 Intake: IV 20 Invasive Line 1 20 Intake, IV Titration 298.07 150.114 Amount Heparin Sod,Pork in 0.45% 298.07 150.114 NaCl 25,000 unit In 0.45 % NaCl 1 500ml.bag @ 16 UNITS/KG/HR 45.72 mls/hr IV .[id number] [facility] Rx#: [id number] Oral 420 Output: Urine 310 Other: Voiding Method Diaper Diaper # Voids 1 2 # Bowel Movements 1 Weight 119 kg 147 kg Patient Weight 10/05/18 06:59 Weight 147 kg 10/04/18 06:02 10/04/18 06:02
[2018-10-04] MEDS: HYDROcodone/APAP 5-325MG 1 EACH TAB PO PRN (16:03)
--- NOTE | 2018-10-04 17:55 | NM ---
EXAMINATION TYPE: NM pul vent and perfuse DATE OF EXAM: 10/04/2018 COMPARISON: Chest radiograph 10/03/2018 HISTORY: Dyspnea, chest pain TECHNIQUE: Utilizing inhalation of 70 mCi Tc 99m DTPA aerosol and intravenous injection of 5.2 mCi o f Tc 99m MAA, ventilation and perfusion images are acquired post injection in multiple projections. FINDINGS: Normal radiotracer distribution is noted in the lungs. There is no evidence of mismatched defects. IMPRESSION: Low probability for pulmonary embolism. Study is compared with recent chest radiograph.
[2018-10-04] MEDS: SODIUM CHLORIDE 0.9% 1,000 ML IV SCH (18:11)
[2018-10-04] MEDS: LEVOFLOXACIN 750MG-D5W PMX 750 MG in DEXTROSE/WATER 1 150ML.BAG IVPB SCH (18:48)
[2018-10-04] MEDS: LISINOPRIL 20 MG TAB PO SCH (20:38)
[2018-10-04] MEDS: ATORVASTATIN 10 MG TAB PO SCH (20:38)
[2018-10-04 20:41] LABS: Glucose,Whole Blood 207 mg/dL (75-99)
[2018-10-05] MEDS: methylPREDNISolone SOD SUCCI 40 MG/ML 1 ML VIAL IV SCH ×2 (00:05→08:23)
--- NOTE | 2018-10-05 01:05 | PN ---
PROGRESS NOTE DATE OF SERVICE: 10/04/2018 This 78-year-old gentleman who was admitted with shortness of breath and possible asthma and CHF/COPD acute exacerbation bronchopneumonia, also had elevated D- dimer 6.36. The CT angio could not be done because of renal failure. The patient underwent a ventilation-perfusion scan today which showed low probability of pulmonary embolism. Patient being closely monitored. No chest pain. No palpitations. No fever. The blood cultures growing gram-negative bacillus. REVIEW OF SYSTEMS: CARDIOVASCULAR: No angina or palpitations. Respiration: As mentioned earlier. GI as mentioned earlier. no dysuria. MEDICATIONS: Current medications reviewed. 1. Tylenol 500 q.6h p.r.n. 2. [place] 5 mg. 3. DuoNeb q.i.d. and p.r.n. 4. Norvasc 10 mg. 5. Heparin. 6. NovoLog. 7. Isordil. 8. Levaquin 750 IV daily. 10.Solu-Medrol. 11.Nitrostat. 12.Protonix. 13.Restoril. 14.Ultram. EXAM: Alert and oriented times three. Pulse 87 blood pressure 106/75, respiratory rate 22, temperature 97.2, pulse ox 97% on 2 L. HEENT: Conjunctivae normal. Oral mucosa moist. Neck is no jugular venous distention. No carotid bruit. No lymph node enlargement. Cardiovascular: S1, S2 muffled. Respiratory: Breath sounds diminished in the bases. Scattered rhonchi and crackles. Abdomen is soft, nontender. Legs are no edema. No swelling. Central nervous system: No focal deficits. LABS: WBC 19.3, sodium 135 and plasma lactic acid is 1.8. Troponins are note. Stool was positive. C diff is negative. ASSESSMENT: 1. Shortness of breath with possibly asthma chronic obstructive pulmonary disease acute exacerbation with acute purulent tracheobronchitis or bronchopneumonia. 2. Elevated D-dimer without any evidence of pulmonary embolus with low probability V/Q scan. 3. Sepsis with gram-negative bacilli. 4. Increased WBC. 5. Hyponatremia. 6. Increased creatinine with chronic kidney stage 3 increased plasma lactic acid. 7. Increased AST. 8. Troponin 0.06 indeterminate. 9. Remote history of nicotine dependence. 10.Hypertension. 11.Hyperlipidemia. 12.History of degenerative joint disease. 13.History of coronary artery disease. 14.History of myocardial infarction. 15.History of cerebrovascular accident with left-sided weakness. 16.History of wound on the left lower leg. 17.History of melanoma. RECOMMENDATIONS AND DISCUSSION: Recommend to continue current medications, management and symptomatic treatment. Closely follow with Dr. Phillips. I would recommend to continue the current medications, l management and otherwise V/Q scan is low probability. I would recommend to stop the IV heparin drip at this time and continue with subcu heparin. Otherwise, continue with IV antibiotics. Follow the cultures. I would also recommend taper down the steroids. Closely follow with multiple consultants. Infectious Disease consultation also has been requested. Once again, the prognosis guarded because of multiple complex medical issues. See orders for further details. Would recommend a set of blood cultures as well. MMODL / IJN: [id number] / MTDD
[2018-10-05 06:18] LABS: Basophils % (A) 0 %; Eosinophils % (A) 0 %; HCT 38.3 % (39.0-53.0); HGB 12.3 gm/dL (13.0-17.5); Lymphocytes # (A) 0.5 k/uL (1.0-4.8); Lymphocytes % (A) 2 %; MCH 28.8 pg (25.0-35.0); Mean Platelet Volume 9.4; Monocytes # (A) 0.5 k/uL (0-1.0); Monocytes % (A) 2 %; Neutrophils # (A) 23.3 k/uL (1.3-7.7); Neutrophils % (A) 95 %; Platelet Count 249 k/uL (150-450); RBC 4.26 m/uL (4.30-5.90); WBC 24.4 k/uL (3.8-10.6)
[2018-10-05] MEDS: HEPARIN SOD,PORK IN 0.45% NACL 25,000 UNIT in 0.45% NACL 1 500ML.BAG IV SCH (06:26)
[2018-10-05 06:45] LABS: Glucose,Whole Blood 163 mg/dL (75-99)
[2018-10-05] MEDS: INSULIN ASPART 100 UNIT/ML 1 ML 10 ML VIAL SQ SCH ×4 (06:47→21:33)
[2018-10-05] MEDS: PANTOPRAZOLE 40 MG TABLET PO SCH (06:47)
[2018-10-05 07:36] LABS: Calcium 8.4 mg/dL (8.4-10.2)
[2018-10-05] MEDS: IPRATROPIUM-ALBUTEROL 3 ML NEB INHALATION SCH ×4 (07:47→18:53)
[2018-10-05] MEDS: amLODIPine 10 MG TAB PO SCH (08:22)
[2018-10-05] MEDS: traMADol 50 MG TAB PO SCH ×4 (08:22→21:34)
[2018-10-05] MEDS: ISOSORBIDE DINITRATE 20 MG TAB PO SCH ×2 (08:22→21:33)
[2018-10-05] MEDS: LISINOPRIL 10 MG TAB PO SCH (08:22)
[2018-10-05 12:01] LABS: Glucose,Whole Blood 131 mg/dL (75-99)
[2018-10-05] MEDS ORDERED: SODIUM CHLORIDE 0.9% 1,000 ML IV SCH (12:30)
--- NOTE | 2018-10-05 15:10 | PN ---
PROGRESS NOTE DATE OF SERVICE: October 05, 2018. This is a 78-year-old male that we saw in consultation yesterday. He presented with shortness of breath and a nonproductive cough, likely related to underlying chronic obstructive pulmonary disease exacerbation. He also had a mild leukocytosis and lactic acidemia, possibly related to underlying sepsis. His blood cultures were positive for gram-negative bacilli. Anyway, the patient is doing much better today. Lying flat in bed. Nasal O2 in place. Denies any shortness of breath, difficulty breathing, chest pain, chest discomfort, or other complaints for that matter. No fever, chills, nausea, vomiting or diarrhea. The patient had a ventilation perfusion lung scan which was low probability for pulmonary embolism. Chest x-ray on the revealed no acute pulmonary abnormality. Again, the patient is feeling much better today. Our plan yesterday included antibiotic coverage, cultures, nebulized bronchodilators, Symbicort, and antibiotics. His blood cultures are showing evidence of E coli. In addition, his wound cultures from the left toe show presumptive Staph. The E. coli is sensitive to everything. There have not been sensitivities performed on the staph as yet. Currently, the patient is on Levaquin and Ancef. He has been seen by Dr. Rodgers. Current vital signs include temperature 97, heart rate is 90, respiratory rate 16, blood pressure 104/71, mean 82, 2 L saturation 96%. Appears in no acute distress. Lying flat in bed. Nasal O2 in place. No acute respiratory difficulty. HEENT examination is grossly unremarkable. Mucous membranes are moist. No oral lesions. Neck is supple. Full range of motion. No adenopathy or thyromegaly. Neck veins are flat. Cardiovascular examination reveals regular rhythm and rate. Heart rate about 90 beats per minute. S1, S2 normal. Lungs reveal mostly clear breath sounds. Maybe a few scattered mild rhonchi. No wheezes or crackles. Abdomen is obese. Bowel sounds are heard. Extremities are intact. Mild edema noted. Skin without rash. Neurologic examination is brief but nonfocal. LABS: Reviewed. White count 24.4, hemoglobin 12.3, hematocrit 38.3, and platelet count normal. PTT is 130. Sodium 139, potassium 4, chloride 109 CO2 18, anion gap is 12, BUN is 110, creatinine 1.69, plasma lactic acid was 2.1 and the repeat was 2.8. As mentioned above the cultures from the left great toe were positive for presumptive Staph aureus and the blood cultures were positive for E coli. The V/Q scan was low probability and IV heparin was discontinued. His medications are reviewed. ASSESSMENT: 1. Shortness of breath, improved, with nonproductive cough, secondary to mild chronic obstructive pulmonary disease exacerbation. 2. Leukocytosis and lactic acidemia, secondary to sepsis, with positive cultures for E coli in the blood and presumptive Staph from the left great toe. 3. Acute kidney injury, secondary to sepsis. 4. Previous history of heavy tobacco use of at least 50 pack-years. 5. Mildly elevated troponins. 6. No evidence of pulmonary embolism. 7. Chronic draining left toe wound. 8. Chronic left leg cellulitis. 9. History of cerebrovascular accident with left-sided weakness. 10.Hypertension by history. 11.Hyperlipidemia by history. 12.History of previous myocardial infarction. 13.Morbid obesity. 14.Degenerative joint disease. 15.History of melanoma with previous excision. PLAN: Dated October 05, 2018. The patient has been seen by Infectious Disease and antibiotics have been adjusted accordingly. He remains on Ancef and Levaquin. His blood was positive for E coli and the wound on his left great toe was positive for presumptive Staph. Sensitivities have not been done on the Staph as yet. The patient remains relatively stable. His breathing is stable. We will switch his IV Solu-Medrol to a small dose of prednisone. He is on updrafts and that seems to help his breathing. He will need outpatient pulmonary function testing. Additional recommendations and suggestions are forthcoming. Prognosis is guarded. I will add Symbicort to his regimen. We will continue to follow. MMODL / IJN: [id number] /
[2018-10-05] MEDS: ceFAZolin IN SWFI 2 GM/20 ML SYRINGE IVP SCH ×2 (16:19→21:33)
[2018-10-05 16:27] LABS: Glucose,Whole Blood 221 mg/dL (75-99)
[2018-10-05] MEDS ORDERED: SODIUM CHLORIDE 0.9% 1,000 ML IV ONE (17:23)
[2018-10-05] MEDS: LEVOFLOXACIN 750MG-D5W PMX 750 MG in DEXTROSE/WATER 1 150ML.BAG IVPB SCH (18:04)
[2018-10-05] MEDS: SODIUM CHLORIDE 0.9% 1,000 ML IV SCH ×2 (18:05→22:49)
[2018-10-05] MEDS: SYMBICORT 160-4.5 MCG INHALER INHALATION SCH (19:01)
--- NOTE | 2018-10-05 19:22 | PN ---
PROGRESS NOTE DATE OF SERVICE: 10/05/2018. This 78-year-old gentleman who was admitted shortness of breath also considered to have asthma and COPD exacerbation. The patient also had features of sepsis with gram- negative bacilli, which is the E coli from the blood, which is poly sensitive at this time. The patient is feeling much better. Dr. Phillips is following the patient closely. The patient is followed by Dr. Mark Mitchell in the outpatient setting. The patient is closely monitored at this time. A V/Q scan also been done which ruled out any possible pulmonary embolism with low probability pulmonary embolism. Patient is on broad- spectrum IV antibiotics. PAST MEDICAL HISTORY: Reviewed. REVIEW OF SYSTEMS: CARDIOVASCULAR: No angina. RESPIRATORY: As mentioned earlier. GI: No nausea. : No dysuria. NERVOUS SYSTEM: No numbness or weakness. CURRENT MEDICATIONS: 1. Tylenol p.r.n. 2. [place] 5 mg q.p.m. 3. DuoNeb q.i.d. and p.r.n. 4. Xanax. 5. Norvasc. 6. Lipitor 10 mg. 7. Symbicort 160/4.5, 2 puffs b.i.d. 8. Kefzol 2 g IV b.i.d. 9. NovoLog. 10.Mysoline. 11.Levaquin 750 daily. 12.Zestril. 13.Narcan. 14.Protonix. 15.Prednisone. 16.Restoril. 17.Ultram. PHYSICAL EXAM: Patient is alert, oriented x3. Pulse is 84, blood pressure 90/42, respirations 16, temperature 97.8, pulse ox 90% on 2 L. HEENT: Conjunctivae normal. Oral mucosa moist. Neck is no jugular venous distention. No carotid bruit. No lymph node enlargement. CARDIOVASCULAR: S1, S2 muffled. RESPIRATORY: Breath sounds diminished at the bases. A few rhonchi, no crackles. ABDOMEN: Soft, nontender. LEGS: No edema. NERVOUS SYSTEM: No focal deficits. LABS: WBC 24.4, hemoglobin 12.3. APTT is 12.3. Other labs are noted. ASSESSMENT: 1. Shortness of breath, possibly secondary to chronic obstructive pulmonary disease acute exacerbation with acute purulent tracheobronchitis with bronchopneumonia. 2. E coli, sepsis. 3. Elevated D-dimer without new pulmonary embolus with low probability V/Q scan. 4. Increased WBC. 5. Hyponatremia. 6. Increased creatinine with chronic kidney stage III. 7. Increased plasma lactic acid from sepsis. 8. Increased AST. 9. Troponin 0.6 indeterminate. 10.Remote history of nicotine dependence. 11.Hypertension. 12.Hyperlipidemia. 13.History of degenerative joint disease. 14.History of coronary artery disease. 15.History of myocardial infarction. 16.History of CVI, left-sided weakness. 17.History of wound on the left lower leg. 18.History of melanoma. RECOMMENDATIONS AND DISCUSSION: I recommend to continue current management and symptomatic treatment, otherwise continue with the antibiotics. Continue the rest of medications. The patient is feeling much better. I would also recommend closely follow with Infectious Disease and Pulmonary. Further recommendations to follow. Dr. Mitchell will follow. CRISTÓBAL / SY: [id number] /
[2018-10-05 20:09] LABS: Glucose,Whole Blood 175 mg/dL (75-99)
[2018-10-05] MEDS: LISINOPRIL 20 MG TAB PO SCH (21:30)
[2018-10-05] MEDS: ATORVASTATIN 10 MG TAB PO SCH (21:30)
[2018-10-06] MEDS: TEMAZEPAM 15 MG CAP PO PRN (00:11)
--- NOTE | 2018-10-06 00:28 | P.CONS ---
History of Present Illness - Reason for Consult Consult date: 10/05/18 - Chief Complaint Shortness of breath - History of Present Illness 78-year-old male who has multiple medical troubles includes underlying COPD ,coronary artery disease with a history of stroke with some residual left-sided weakness is not feeling well for several weeks. He's had increasing respiratory symptoms and was concerned about the development of pneumonia Kocis had that several times in the past. Seen by his primary care physician was placed on some oral antibiotic therapy. Despite that he continue to have increasing shortness of breath cough fatigue and malaise because of presented to the emergency center and was admitted for further intervention. With evidence of a positive blood culture the infectious diseases consultation was requested. Because of some diarrheal stool for C. diff was sent and is negative. He has known peripheral vascular disease and does do some compression. He had an injury to the left great toe for which wound care was requested. There is notation of some ongoing lactic acidosis. Review of Systems 78-year-old male relates is feeling slowly better than coming to Hospital HEENT:Denies headache or acute visual change. Denies sinus or mouth discomforts. Denies neck stiffness or pain. Denies significant oral cavity pain. Denies difficulty on swallowing. Lungs: Shortness of breath was worse in his baseline he was having cough since minimal sputum production but no hemoptysis Cardiovascular: Is noted positive shortness of breath no chest pain or chest wall pain did have dyspnea on exertion with no syncope Gastrointestinal:Denies nausea, vomiting, however did develop diarrhea but had no hematemesis melena or hematochezia Musculoskeletal: denies significant myalgias or arthralgias. No new joint swelling. Denies new back pain. Skin: Trimming his toenails resulted in ulceration to the left great toe Neuro: Denies headache or visual change. Denies any new onset weakness or difficulty with ambulation. Denies falls or seizures. Psychiatric:Denies anxiety or depression. Endocrine: Chronic fatigue and malaise weight is been stable Past Medical History Past Medical History: Asthma, CVA/TIA, Hyperlipidemia, Hypertension, Myocardial Infarction (OK), Osteoarthritis (OA) Additional Past Medical History / Comment(s): CVA 1992-left side weakness- uses mostly the wheelchair but able to use cane/walker as well, pastwound on lower left leg- treated at [facility] [place] [facility],past venous leg ulcers melanoma back and basal skin cancer L shoulder. Last Myocardial Infarction Date:: 2008 History of Any Multi-Drug Resistant Organisms: None Reported Year Discovered:: 04/03/16 MDRO Source:: LEFT LEG Past Surgical History: Appendectomy, Hernia Repair, Orthopedic Surgery Additional Past Surgical History / Comment(s): 05/01/16 Wide exicision melanoma back, excision lesion L shoulder basal cancer. Other surgical hx: DEBRIDEMENT OF LEFT CALF/LEG, umbilical hernia repair, lumbar spine surgery. Past Anesthesia/Blood Transfusion Reactions: No Reported Reaction, Motion Sickness Additional Psychological History / Comment(s): lives independently. Retired. No service. No international travel. No animal exposures. Reformed smoker. No current alcohol use Smoking Status: Former smoker - Past Family History Mother History Unknown: Yes Father History Unknown: Yes Medications and Allergies Home Medications and Allergies Comment(s): Current Medications Acetaminophen (Tylenol Tab) 500 mg PO Q6HR PRN PRN Reason: Fever and/ or Mild Pain Hydrocodone Bitart/Acetaminophen ([place] 5-325) 1 each PO Q6HR PRN PRN Reason: Moderate Pain Last Admin: 10/04/18 16:03 Dose: 1 each Albuterol/Ipratropium (Duoneb 0.5 Mg-3 Mg/3 Ml Soln) 3 ml INHALATION RT-QID [facility] Last Admin: 10/05/18 18:53 Dose: 3 ml Albuterol/Ipratropium (Duoneb 0.5 Mg-3 Mg/3 Ml Soln) 3 ml INHALATION RT-Q4H PRN PRN Reason: Shortness Of Breath Or Wheezing Last Admin: 10/04/18 15:59 Dose: 3 ml Alprazolam (Xanax) 0.25 mg PO TID PRN PRN Reason: Anxiety Last Admin: 10/04/18 16:07 Dose: 0.25 mg Amlodipine Besylate (Norvasc) 10 mg PO DAILY [facility] Last Admin: 10/05/18 08:22 Dose: 10 mg Atorvastatin Calcium (Lipitor) 10 mg PO HS [facility] Last Admin: 10/05/18 21:30 Dose: 10 mg Budesonide/Formoterol Fumarate (Symbicort 160-4.5 Mcg Inhaler) 2 puff INHALATION RT-BID [facility] Last Admin: 10/05/18 19:01 Dose: 2 puff Cefazolin Sodium (Kefzol) 2 gm IVP Q12HR [facility] Last Admin: 10/05/18 21:33 Dose: 2 gm Levofloxacin 750 mg/ IV (Solution) 150 mls @ 100 mls/hr IVPB Q24H [facility] Last Admin: 10/05/18 18:04 Dose: 100 mls/hr Sodium Chloride (Saline 0.9%) 1,000 mls @ 200 mls/hr IV .Q5H [facility] Last Admin: 10/05/18 18:05 Dose: 200 mls/hr Insulin Aspart (Novolog) 0 unit SQ ACHS [facility]; Protocol Last Admin: 10/05/18 21:33 Dose: 2 unit Isosorbide Dinitrate (Isordil) 40 mg PO BID [facility] Last Admin: 10/05/18 21:33 Dose: Not Given Lisinopril (Zestril) 20 mg PO HS [facility] Last Admin: 10/05/18 21:30 Dose: Not Given Lisinopril (Zestril) 10 mg PO DAILY [facility] Last Admin: 10/05/18 08:22 Dose: 10 mg Naloxone HCl (Narcan) 0.2 mg IV Q2M PRN PRN Reason: Opioid Reversal Nitroglycerin (Nitrostat) 0.4 mg SUBLINGUAL Q5M PRN PRN Reason: Chest Pain Pantoprazole Sodium (Protonix) 40 mg PO AC-BRKFST [facility] Last Admin: 10/05/18 06:47 Dose: 40 mg Prednisone () 20 mg PO DAILY [facility] Temazepam (Restoril) 15 mg PO HS PRN PRN Reason: Insomnia Last Admin: 10/06/18 00:11 Dose: 15 mg Tramadol HCl (Ultram) 50 mg PO QID [facility] Last Admin: 10/05/18 21:34 Dose: Not Given Home Medications Medication Instructions Recorded Confirmed Type Isosorbide Dinitrate [Isordil] 40 mg PO BID 04/03/16 10/03/18 History Lisinopril [Zestril] 20 mg PO HS 04/03/16 10/03/18 History Simvastatin [Zocor] 20 mg PO HS 04/03/16 10/03/18 History amLODIPine BESYLATE [Norvasc] 10 mg PO DAILY 04/03/16 10/03/18 History traMADol HCL [Ultram] 50 mg PO QID 04/03/16 10/03/18 History Albuterol Inhaler [Ventolin Hfa 1 puff INHALATION RT-QID PRN 10/03/18 10/03/18 History Inhaler] Budesonide/Formoterol Fumarate 2 puff INHALATION RT-BID 10/03/18 10/03/18 History [Symbicort 160-4.5 Mcg Inhaler] Lisinopril [Zestril] 10 mg PO DAILY 10/03/18 10/03/18 History Naloxone HCl [Narcan] 4 mg NASAL ONCE PRN 10/03/18 10/03/18 History Nitroglycerin Sl Tabs [Nitrostat] 0.4 mg SUBLINGUAL Q5M PRN 10/03/18 10/03/18 History Allergies Allergy/AdvReac Type Severity Reaction Status Date / Time No Known Allergies Allergy Verified 10/03/18 12:56 Physical Exam Vitals: Vital Signs Temp Pulse Pulse Resp BP Pulse Ox 10/05/18 20:00 97.8 F 87 18 112/53 97 10/05/18 19:04 96 10/05/18 18:53 95 10/05/18 18:32 89 107/58 10/05/18 16:15 97.8 F 84 16 90/45 96 10/05/18 16:00 89 16 10/05/18 15:32 96 10/05/18 15:20 96 10/05/18 12:00 97.0 F L 96 16 104/71 96 10/05/18 11:27 92 10/05/18 11:19 88 10/05/18 08:00 97.8 F 96 16 123/54 96 10/05/18 07:58 84 10/05/18 07:47 94 10/05/18 04:00 97.7 F 86 18 107/65 96 Intake and Output 10/05/18 10/05/18 10/06/18 14:59 22:59 06:59 Intake Total 328.375 8378 Output Total 600 400 Balance -29.282 2000 Intake: IV 2140 Invasive Line 1 10 Invasive Line 2 30 Levofloxacin 750Mg-D5w 100 Pmx 750 mg In Dextrose/ Water 1 150ml.bag @ 100 mls/hr IVPB Q24H [facility] Rx#: [id number] Sodium Chloride 0.9% 1, 800 000 ml @ 100 mls/hr IV . Q10H [facility] Rx#:[id number] Sodium Chloride 0.9% 1, 200 000 ml @ 200 mls/hr IV . Q5H [facility] Rx#:[id number] Sodium Chloride 0.9% 1, 1000 000 ml @ 999 mls/hr IV . Q1H1M [facility] Rx#:[id number] Intake, IV Titration 50.718 Amount Heparin Sod,Pork in 0.45% 50.718 NaCl 25,000 unit In 0.45 % NaCl 1 500ml.bag @ 16 UNITS/KG/HR 45.72 mls/hr IV .[id number] [facility] Rx#: [id number] Oral 520 260 Output: Urine 600 400 Other: Voiding Method Diaper Diaper 78-year-old male with obesity but is feeling better since coming to hospital. HEENT: Anicteric conjunctiva are pink and moist nasal mucosa grossly intact without significant lesions, there is no thrush. Neck: The neck is supple without significant lymphadenopathy or thyromegaly. Lungs: There is symmetrical air entry with expiratory wheezes. Crackles at the bases no micah bronchial sounds with dullness or egophony Heart: Irregular with an audible S1 and S2 soft S4 no distinct murmur click or rub PMI was nondisplaced Abdomen: Obese, Positive bowel sounds soft and nontender without palpable masses or organomegaly. There was no guarding or rebound. Extremities: The upper extremities have excellent pulses they are symmetric, no significant petechiae or telangiectasia. No splinter hemorrhages were noted. Lower extremities have evidence of some chronic venous stasis evidence of the injuries of the left great toe medial site no purulence some minimal erythema Neuro: Awake alert oriented to person place and time. There are no acute new gross focal sensory motor deficits. Results CBC & Chem 7: 10/05/18 05:30 10/05/18 05:30 Labs: Abnormal Lab Results - Last 24 Hours (Table) 10/05/18 10/05/18 10/05/18 Range/Units 05:30 05:30 05:30 WBC 24.4 H (3.8-10.6) k/uL RBC 4.26 L (4.30-5.90) m/uL Hgb 12.3 L (13.0-17.5) gm/dL Hct 38.3 L (39.0-53.0) % Neutrophils # 23.3 H (1.3-7.7) k/uL Lymphocytes # 0.5 L (1.0-4.8) k/uL APTT (22.0-30.0) sec Chloride 109 H (98-107) mmol/L Carbon Dioxide 18 L (22-30) mmol/L BUN 110 H* (9-20) mg/dL Creatinine 1.69 H (0.66-1.25) mg/dL Glucose 184 H (74-99) mg/dL POC Glucose (mg/dL) (75-99) mg/dL Plasma Lactic Acid Glen 2.1 H* (0.7-2.0) mmol/L 10/05/18 10/05/18 10/05/18 Range/Units 05:30 06:43 10:28 WBC (3.8-10.6) k/uL RBC (4.30-5.90) m/uL Hgb (13.0-17.5) gm/dL Hct (39.0-53.0) % Neutrophils # (1.3-7.7) k/uL Lymphocytes # (1.0-4.8) k/uL APTT 130.3 H* (22.0-30.0) sec Chloride (98-107) mmol/L Carbon Dioxide (22-30) mmol/L BUN (9-20) mg/dL Creatinine (0.66-1.25) mg/dL Glucose (74-99) mg/dL POC Glucose (mg/dL) 163 H (75-99) mg/dL Plasma Lactic Acid Glen 2.8 H* (0.7-2.0) mmol/L 10/05/18 10/05/18 10/05/18 Range/Units 12:00 16:26 16:52 WBC (3.8-10.6) k/uL RBC (4.30-5.90) m/uL Hgb (13.0-17.5) gm/dL Hct (39.0-53.0) % Neutrophils # (1.3-7.7) k/uL Lymphocytes # (1.0-4.8) k/uL APTT (22.0-30.0) sec Chloride (98-107) mmol/L Carbon Dioxide (22-30) mmol/L BUN (9-20) mg/dL Creatinine (0.66-1.25) mg/dL Glucose (74-99) mg/dL POC Glucose (mg/dL) 131 H 221 H (75-99) mg/dL Plasma Lactic Acid Glen 3.1 H* (0.7-2.0) mmol/L 10/05/18 10/05/18 Range/Units 20:07 21:02 WBC (3.8-10.6) k/uL RBC (4.30-5.90) m/uL Hgb (13.0-17.5) gm/dL Hct (39.0-53.0) % Neutrophils # (1.3-7.7) k/uL Lymphocytes # (1.0-4.8) k/uL APTT (22.0-30.0) sec Chloride (98-107) mmol/L Carbon Dioxide (22-30) mmol/L BUN (9-20) mg/dL Creatinine (0.66-1.25) mg/dL Glucose (74-99) mg/dL POC Glucose (mg/dL) 175 H (75-99) mg/dL Plasma Lactic Acid Glen 3.1 H* (0.7-2.0) mmol/L Microbiology - Last 24 Hours (Table) 10/04/18 19:39 Blood Culture - Preliminary Blood No Growth after 24 hours 10/04/18 01:25 Urine Culture - Final Urine,Voided 10/04/18 10:30 Gram Stain - Preliminary Toe - Left First Wound Culture - Preliminary Presumptive Staph aureus 10/03/18 13:50 Blood Culture Gram Stain - Final Blood Blood Culture - Final Escherichia coli 10/04/18 06:02 Blood Culture - Preliminary Blood No Growth after 24 hours Laboratory Results WBC 24.4 k/uL (3.8-10.6) H 10/05/18 05:30 RBC 4.26 m/uL (4.30-5.90) L 10/05/18 05:30 Hgb 12.3 gm/dL (13.0-17.5) L 10/05/18 05:30 Hct 38.3 % (39.0-53.0) L 10/05/18 05:30 MCV 90.0 fL (80.0-100.0) 10/05/18 05:30 MCH 28.8 pg (25.0-35.0) 10/05/18 05:30 MCHC 32.0 g/dL (31.0-37.0) 10/05/18 05:30 RDW 14.0 % (11.5-15.5) 10/05/18 05:30 Plt Count 249 k/uL (150-450) 10/05/18 05:30 Neutrophils % 95 % 10/05/18 05:30 Lymphocytes % 2 % 10/05/18 05:30 Monocytes % 2 % 10/05/18 05:30 Eosinophils % 0 % 10/05/18 05:30 Basophils % 0 % 10/05/18 05:30 Neutrophils # 23.3 k/uL (1.3-7.7) H 10/05/18 05:30 Lymphocytes # 0.5 k/uL (1.0-4.8) L 10/05/18 05:30 Monocytes # 0.5 k/uL (0-1.0) 10/05/18 05:30 Eosinophils # 0.0 k/uL (0-0.7) 10/05/18 05:30 Basophils # 0.0 k/uL (0-0.2) 10/05/18 05:30 PT 11.2 sec (9.0-12.0) 10/03/18 13:50 INR 1.2 (<1.2) H 10/03/18 13:50 APTT 130.3 sec (22.0-30.0) H* 10/05/18 05:30 D-Dimer 6.36 mg/L FEU (<0.60) H 10/03/18 13:50 Sodium 139 mmol/L (137-145) 10/05/18 05:30 Potassium 4.0 mmol/L (3.5-5.1) 10/05/18 05:30 Chloride 109 mmol/L (98-107) H 10/05/18 05:30 Carbon Dioxide 18 mmol/L (22-30) L 10/05/18 05:30 Anion Gap 12 mmol/L 10/05/18 05:30 BUN 110 mg/dL (9-20) H* 10/05/18 05:30 Creatinine 1.69 mg/dL (0.66-1.25) H 10/05/18 05:30 Est GFR (CKD-EPI)AfAm 45 (>60 ml/min/1.73 sqM) 10/05/18 05:30 Est GFR (CKD-EPI)NonAf 39 (>60 ml/min/1.73 sqM) 10/05/18 05:30 Glucose 184 mg/dL (74-99) H 10/05/18 05:30 POC Glucose (mg/dL) 175 mg/dL (75-99) H 10/05/18 20:07 POC Glu Weaver Apprentice ID Amy Mittal 10/05/18 20:[address] Glu mg/dL 123 10/03/18 20:12 Hemoglobin A1c 5.9 % (4.0-6.0) 10/03/18 20:12 Lactic Ac Sepsis Rflx Y 10/05/18 17:55 Plasma Lactic Acid Glen 3.1 mmol/L (0.7-2.0) H* 10/05/18 21:02 Calcium 8.4 mg/dL (8.4-10.2) 10/05/18 05:30 Total Bilirubin 0.9 mg/dL (0.2-1.3) 10/04/18 06:02 AST 81 U/L (17-59) H 10/04/18 06:02 ALT 56 U/L (21-72) 10/04/18 06:02 Alkaline Phosphatase 127 U/L (38-126) H 10/04/18 06:02 Total Creatine Kinase 61 U/L (55-170) 10/04/18 01:22 CK-MB (CK-2) 1.5 ng/mL (0.0-2.4) 10/04/18 01:22 CK-MB (CK-2) Rel Index 2.5 10/04/18 01:22 Troponin I 0.037 ng/mL (0.000-0.034) H* 10/04/18 01:22 NT-Pro-B Natriuret Pep 1000 pg/mL 10/03/18 13:50 Total Protein 6.4 g/dL (6.3-8.2) 10/04/18 06:02 Albumin 2.6 g/dL (3.5-5.0) L 10/04/18 06:02 Stool Occult Blood Positive (Negative) 10/04/18 00:42 C. difficile (EIA) Intrp Negative (Negative) 10/04/18 00:42 Microbiology 10/04/18 19:39 Blood Blood Culture - Preliminary No Growth after 24 hours 10/04/18 01:25 Urine,Voided Urine Culture - Final 10/04/18 10:30 Toe - Left First Gram Stain - Preliminary 10/04/18 10:30 Toe - Left First Wound Culture - Preliminary Presumptive Staph aureus 10/03/18 13:50 Blood Blood Culture Gram Stain - Final 10/03/18 13:50 Blood Blood Culture - Final Escherichia coli 10/04/18 06:02 Blood Blood Culture - Preliminary No Growth after 24 hours 10/03/18 13:50 Blood Blood Culture - Final Assessment and Plan (1) Acute exacerbation of chronic obstructive pulmonary disease (COPD) Current Visit: Yes Status: Acute Code(s): J44.1 - CHRONIC OBSTRUCTIVE PULMONARY DISEASE W (ACUTE) EXACERBATION SNOMED Code(s): 687502850 (2) Sepsis Current Visit: Yes Status: Acute Code(s): A41.9 - SEPSIS, UNSPECIFIED ORGANISM SNOMED Code(s): 23761406 (3) E coli bacteremia Narrative/Plan: 78-year-old presents to Hospital feeling quite poorly with increasing shortness of breath minimal cough significant fatigue and malaise. The presentation there is evidence of sepsis with leukocytosis and no evidence of gram-negative bacteremia with E. coli. Because of the pulmonary source of infection at admission he was initiated to levofloxacin. Wound culture showing staph aureus. With this being isolated Ancef is added to ensure coverage for the isolated staph species. The patient is having ongoing lactic acidosis likely in the bases of acute renal failure very suffering from at this time. Urinalysis and renal ultrasound are going to be requested to further evaluate this is a potential source of his E. coli bacteremia. Follow-up cultures are in process. Local wound care with medical clinic in be applied to the toe ulceration. Was having diarrhea C. diff is negative Chest x-ray is without acute new pulmonary infiltrates. Leukocytosis is being monitored. Current Visit: Yes Status: Acute Code(s): R78.81 - BACTEREMIA SNOMED Code( s): 461019042640 (4) Staphylococcus aureus infection Current Visit: Yes Status: Acute Code(s): A49.01 - METHICILLIN SUSCEP STAPH INFECTION, UNSP SITE SNOMED Code(s): 302945863
[2018-10-06 05:57] LABS: Glucose,Whole Blood 134 mg/dL (75-99)
[2018-10-06] MEDS: INSULIN ASPART 100 UNIT/ML 1 ML 10 ML VIAL SQ SCH ×4 (06:21→21:34)
[2018-10-06 06:30] LABS: Basophils % (A) 0 %; Eosinophils % (A) 0 %; HCT 36.5 % (39.0-53.0); HGB 11.9 gm/dL (13.0-17.5); Lymphocytes # (A) 0.7 k/uL (1.0-4.8); Lymphocytes % (A) 4 %; MCH 29.5 pg (25.0-35.0); MCHC 32.8 g/dL (31.0-37.0); MCV 90.1 fL (80.0-100.0); Monocytes # (A) 0.8 k/uL (0-1.0); Monocytes % (A) 4 %; Neutrophils # (A) 16.1 k/uL (1.3-7.7); Neutrophils % (A) 91 %; Platelet Count 239 k/uL (150-450); RBC 4.05 m/uL (4.30-5.90); RDW 13.9 % (11.5-15.5); WBC 17.8 k/uL (3.8-10.6)
[2018-10-06 06:42] LABS: Potassium 4.2 mmol/L (3.5-5.1)
[2018-10-06] MEDS: PANTOPRAZOLE 40 MG TABLET PO SCH (06:49)
[2018-10-06] MEDS: IPRATROPIUM-ALBUTEROL 3 ML NEB INHALATION SCH ×5 (08:28→20:14)
[2018-10-06] MEDS: SYMBICORT 160-4.5 MCG INHALER INHALATION SCH ×2 (08:28→20:14)
--- NOTE | 2018-10-06 09:03 | US ---
EXAMINATION TYPE: US kidneys/renal and bladder DATE OF EXAM: 10/06/2018 COMPARISON: NONE CLINICAL HISTORY: renal failure assess obstruciton/stone. EXAM MEASUREMENTS: Right Kidney: 13.3 x 5.1 x 5.4 cm Left Kidney: 14.7 x 6.5 x 5.7 cm Technically difficult exam due to being performed portable and body habitus. Right Kidney: upper pole cyst measures 1.8 x 1.4 x 1.8cm Left Kidney: multiple cysts largest measures 2.1 x 1.5 x 1.8 cm Bladder: wnl Bilateral Jets seen: No There is diminished cortical medullary differentiation and cortical renal thinning bilaterally. Ther e is no evidence for hydronephrosis at this point in time. No nephrolithiasis is seen. The urinary bladder is anechoic. Bilateral ureteral jets are seen. IMPRESSION: No hydronephrosis of either kidney. Sequela of chronic medical renal disease with bilateral renal cys ts.
[2018-10-06] MEDS: ISOSORBIDE DINITRATE 20 MG TAB PO SCH ×2 (09:43→21:34)
[2018-10-06] MEDS: LISINOPRIL 10 MG TAB PO SCH (09:43)
[2018-10-06] MEDS: traMADol 50 MG TAB PO SCH ×4 (09:43→21:34)
[2018-10-06] MEDS: predniSONE 20 MG TAB PO SCH (09:43)
[2018-10-06] MEDS: SODIUM CHLORIDE 0.9% 1,000 ML IV SCH ×3 (09:43→17:46)
[2018-10-06] MEDS: ceFAZolin IN SWFI 2 GM/20 ML SYRINGE IVP SCH (09:43)
[2018-10-06] MEDS: amLODIPine 10 MG TAB PO SCH (09:43)
[2018-10-06] MEDS: HYDROcodone/APAP 5-325MG 1 EACH TAB PO PRN ×2 (11:02→17:45)
[2018-10-06 11:28] LABS: Glucose,Whole Blood 131 mg/dL (75-99)
[2018-10-06 16:21] LABS: Glucose,Whole Blood 217 mg/dL (75-99)
--- NOTE | 2018-10-06 17:23 | P.PN ---
Subjective Progress Note Date: 10/06/18 A 78-year-old male patient who is being seen in follow-up regarding his shortness of breath. The patient presented with a nonproductive cough related to COPD exacerbation. 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 At this point in time, the exact source of infection is not clear. It could be urine versus a total infection. Possibility of pneumonias was also entertained although this is felt to be less likely. Clinically the patient is doing better. The patient is covered with broad-spectrum antibiotics. No significant cough or sputum production on today's evaluation. VQ scan was done at time of admission was of a low probability. Chest x-ray revealed no acute abnormalities. The patient a combination of a dilator's, antibiotics and as mentioned the blood cultures showing positive for E. coli. Infectious disease also on the case. He is able to sit up on a chair. No nausea. No vomiting. No abdominal pain. No other significant events overnight. Objective - Vital Signs Vital signs: Vital Signs Temp 97.6 F 10/06/18 12:00 Pulse 82 10/06/18 12:10 Resp 18 10/06/18 12:00 BP 115/62 10/06/18 12:00 Pulse Ox 96 10/06/18 12:00 Intake & Output 10/05/18 10/06/18 10/06/18 18:59 06:59 18:59 Intake Total 2970.718 480 Output Total 600 1100 300 Balance 2370.718 -1100 180 Weight 130.5 kg Intake: IV 2140 Invasive Line 1 10 Invasive Line 2 30 Levofloxacin 750Mg-D5w 100 Pmx 750 mg In Dextrose/ Water 1 150ml.bag @ 100 mls/hr IVPB Q24H [facility] Rx#: [id number] Sodium Chloride 0.9% 1, 800 000 ml @ 100 mls/hr IV . Q10H [facility] Rx#:[id number] Sodium Chloride 0.9% 1, 200 000 ml @ 125 mls/hr IV . Q8H [facility] Rx#:[id number] Sodium Chloride 0.9% 1, 1000 000 ml @ 999 mls/hr IV . Q1H1M [facility] Rx#:[id number] Intake, IV Titration 50.718 Amount Heparin Sod,Pork in 0.45% 50.718 NaCl 25,000 unit In 0.45 % NaCl 1 500ml.bag @ 16 UNITS/KG/HR 45.72 mls/hr IV .[id number] [facility] Rx#: [id number] Oral 780 480 Output: Urine 600 1100 300 Other: Voiding Method Diaper Diaper Urinal # Voids 1 - Exam Appearance, comfortable likely distress Head exam was generally normal. There was no scleral icterus or corneal arcus. Mucous membranes were moist. Neck was supple and without jugular venous distension, thyromegaly, or carotid bruits. Carotids were easily palpable bilaterally. There was no adenopathy. Lungs sounds are diminished along with some bibasilar crackles in lung bases bilaterally. Cardiac exam revealed the PMI to be normally situated and sized. The rhythm was regular and no extrasystoles were noted during several minutes of auscultation. The first and second heart sounds were normal and physiologic splitting of the second heart sound was noted. There were no murmurs, rubs, clicks, or gallops. Abdominal exam revealed normal bowel sounds. The abdomen was soft, non-tender, and without masses, organomegaly, or appreciable enlargement of the abdominal aorta. Extremities revealed diminished pulses and no cyanosis or clubbing. There may be potentially a total infection, the largest on the left. There is evidence of chronic venous stasis in the lower extremities bilaterally. The left great toe the medial aspect is erythematous and swollen. There is no evidence of any purulence in that location. Neurologically awake and alert and is no focaldeficits. Skin there is no open wounds or ulcerations this point in time. - Labs CBC & Chem 7: 10/06/18 06:03 10/06/18 06:03 Labs: Abnormal Lab Results - Last 24 Hours (Table) 10/05/18 10/05/18 10/05/18 Range/Units 16:52 20:07 21:02 WBC (3.8-10.6) k/uL RBC (4.30-5.90) m/uL Hgb (13.0-17.5) gm/dL Hct (39.0-53.0) % Neutrophils # (1.3-7.7) k/uL Lymphocytes # (1.0-4.8) k/uL Chloride (98-107) mmol/L Carbon Dioxide (22-30) mmol/L BUN (9-20) mg/dL Creatinine (0.66-1.25) mg/dL Glucose (74-99) mg/dL POC Glucose (mg/dL) 175 H (75-99) mg/dL Plasma Lactic Acid Glen 3.1 H* 3.1 H* (0.7-2.0) mmol/L Calcium (8.4-10.2) mg/dL 10/06/18 10/06/18 10/06/18 Range/Units 05:55 06:03 06:03 WBC 17.8 H (3.8-10.6) k/uL RBC 4.05 L (4.30-5.90) m/uL Hgb 11.9 L (13.0-17.5) gm/dL Hct 36.5 L (39.0-53.0) % Neutrophils # 16.1 H (1.3-7.7) k/uL Lymphocytes # 0.7 L (1.0-4.8) k/uL Chloride 113 H (98-107) mmol/L Carbon Dioxide 20 L (22-30) mmol/L BUN 91 H (9-20) mg/dL Creatinine 1.47 H (0.66-1.25) mg/dL Glucose 138 H (74-99) mg/dL POC Glucose (mg/dL) 134 H (75-99) mg/dL Plasma Lactic Acid Glen (0.7-2.0) mmol/L Calcium 8.0 L (8.4-10.2) mg/dL 10/06/18 10/06/18 Range/Units 11:26 16:19 WBC (3.8-10.6) k/uL RBC (4.30-5.90) m/uL Hgb (13.0-17.5) gm/dL Hct (39.0-53.0) % Neutrophils # (1.3-7.7) k/uL Lymphocytes # (1.0-4.8) k/uL Chloride (98-107) mmol/L Carbon Dioxide (22-30) mmol/L BUN (9-20) mg/dL Creatinine (0.66-1.25) mg/dL Glucose (74-99) mg/dL POC Glucose (mg/dL) 131 H 217 H (75-99) mg/dL Plasma Lactic Acid Glen (0.7-2.0) mmol/L Calcium (8.4-10.2) mg/dL Microbiology - Last 24 Hours (Table) 10/04/18 10:30 Gram Stain - Final Toe - Left First Wound Culture - Final Methicillin resist S. aureus 10/04/18 06:02 Blood Culture - Preliminary Blood No Growth after 48 hours 10/04/18 19:39 Blood Culture - Preliminary Blood No Growth after 24 hours Assessment and Plan Plan: Assessment 1 acute COPD exacerbation, improving 2 acute E. coli septicemia exact source is not clear to me at this point. Pneumonia is doubtful. Consider urine checked infection versus soft tissue infection. 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 As such the patient may have an underlying stage III kidney disease and is obvious to chronic. Plan Continue antibiotics and the patient was switched to oral Levaquin per IDs recommendation. Continue DuoNeb overestimates [id number]. Symbicort as maintenance treatment for COPD. IV fluids can be dropped to 50 mL an hour. Rest of the medication be kept unchanged.
[2018-10-06] MEDS: LEVOFLOXACIN 750 MG TAB PO SCH (17:45)
--- NOTE | 2018-10-06 18:13 | P.PN ---
Subjective Patient resting in bed continues with shortness of breath. States that he is some improvement. Patient was seen with the pulmonology and infectious disease medications adjusted Objective - Vital Signs Vital signs: Vital Signs Temp 97.6 F 10/06/18 12:00 Pulse 88 10/06/18 17:48 Resp 18 10/06/18 12:00 BP 115/62 10/06/18 12:00 Pulse Ox 96 10/06/18 12:00 Intake & Output 10/05/18 10/06/18 10/06/18 18:59 06:59 18:59 Intake Total 2970.718 720 Output Total 600 1100 1100 Balance 2370.718 -1100 -380 Weight 130.5 kg Intake: IV 2140 Invasive Line 1 10 Invasive Line 2 30 Levofloxacin 750Mg-D5w 100 Pmx 750 mg In Dextrose/ Water 1 150ml.bag @ 100 mls/hr IVPB Q24H [facility] Rx#: [id number] Sodium Chloride 0.9% 1, 800 000 ml @ 100 mls/hr IV . Q10H [facility] Rx#:[id number] Sodium Chloride 0.9% 1, 200 000 ml @ 50 mls/hr IV . Q20H [facility] Rx#:[id number] Sodium Chloride 0.9% 1, 1000 000 ml @ 999 mls/hr IV . Q1H1M [facility] Rx#:[id number] Intake, IV Titration 50.718 Amount Heparin Sod,Pork in 0.45% 50.718 NaCl 25,000 unit In 0.45 % NaCl 1 500ml.bag @ 16 UNITS/KG/HR 45.72 mls/hr IV .[id number] [facility] Rx#: [id number] Oral 780 720 Output: Urine 600 1100 1100 Other: Voiding Method Diaper Diaper Urinal # Voids 1 - Constitutional General appearance: Present: morbidly obese - EENT Eyes: Present: PERRLA Ears: bilateral: normal - Neck Neck: Present: normal ROM - Respiratory Respiratory: bilateral: diminished - Cardiovascular Rhythm: regular - Gastrointestinal General gastrointestinal: Present: soft - Integumentary Integumentary: Present: normal - Musculoskeletal Musculoskeletal: Present: generalized weakness - Psychiatric Psychiatric: Present: A&O x's 3, appropriate affect, intact judgment & insight - Labs CBC & Chem 7: 10/06/18 06:03 10/06/18 06:03 Labs: Abnormal Lab Results - Last 24 Hours (Table) 10/05/18 10/05/18 10/06/18 Range/Units 20:07 21:02 05:55 WBC (3.8-10.6) k/uL RBC (4.30-5.90) m/uL Hgb (13.0-17.5) gm/dL Hct (39.0-53.0) % Neutrophils # (1.3-7.7) k/uL Lymphocytes # (1.0-4.8) k/uL Chloride (98-107) mmol/L Carbon Dioxide (22-30) mmol/L BUN (9-20) mg/dL Creatinine (0.66-1.25) mg/dL Glucose (74-99) mg/dL POC Glucose (mg/dL) 175 H 134 H (75-99) mg/dL Plasma Lactic Acid Glen 3.1 H* (0.7-2.0) mmol/L Calcium (8.4-10.2) mg/dL 10/06/18 10/06/18 10/06/18 Range/Units 06:03 06:03 11:26 WBC 17.8 H (3.8-10.6) k/uL RBC 4.05 L (4.30-5.90) m/uL Hgb 11.9 L (13.0-17.5) gm/dL Hct 36.5 L (39.0-53.0) % Neutrophils # 16.1 H (1.3-7.7) k/uL Lymphocytes # 0.7 L (1.0-4.8) k/uL Chloride 113 H (98-107) mmol/L Carbon Dioxide 20 L (22-30) mmol/L BUN 91 H (9-20) mg/dL Creatinine 1.47 H (0.66-1.25) mg/dL Glucose 138 H (74-99) mg/dL POC Glucose (mg/dL) 131 H (75-99) mg/dL Plasma Lactic Acid Glen (0.7-2.0) mmol/L Calcium 8.0 L (8.4-10.2) mg/dL 10/06/18 Range/Units 16:19 WBC (3.8-10.6) k/uL RBC (4.30-5.90) m/uL Hgb (13.0-17.5) gm/dL Hct (39.0-53.0) % Neutrophils # (1.3-7.7) k/uL Lymphocytes # (1.0-4.8) k/uL Chloride (98-107) mmol/L Carbon Dioxide (22-30) mmol/L BUN (9-20) mg/dL Creatinine (0.66-1.25) mg/dL Glucose (74-99) mg/dL POC Glucose (mg/dL) 217 H (75-99) mg/dL Plasma Lactic Acid Glen (0.7-2.0) mmol/L Calcium (8.4-10.2) mg/dL Microbiology - Last 24 Hours (Table) 10/04/18 10:30 Gram Stain - Final Toe - Left First Wound Culture - Final Methicillin resist S. aureus 10/04/18 06:02 Blood Culture - Preliminary Blood No Growth after 48 hours 10/04/18 19:39 Blood Culture - Preliminary Blood No Growth after 24 hours - Imaging and Cardiology US - abdomen: report reviewed Assessment and Plan Plan: Assessment Shortness of breath COPD acute on chronic exacerbation with purulent tracheobronchitis Bacteremia positive blood culture E. 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
[2018-10-06 20:55] LABS: Glucose,Whole Blood 146 mg/dL (75-99)
[2018-10-06] MEDS: ATORVASTATIN 10 MG TAB PO SCH (21:34)
[2018-10-06] MEDS: LISINOPRIL 20 MG TAB PO SCH (21:34)
[2018-10-07] MEDS: HYDROcodone/APAP 5-325MG 1 EACH TAB PO PRN ×2 (00:58→06:35)
[2018-10-07] MEDS: TEMAZEPAM 15 MG CAP PO PRN (01:43)
[2018-10-07] MEDS: SODIUM CHLORIDE 0.9% 1,000 ML IV SCH ×2 (01:44→12:38)
[2018-10-07 05:45] LABS: Glucose,Whole Blood 119 mg/dL (75-99)
[2018-10-07] MEDS: INSULIN ASPART 100 UNIT/ML 1 ML 10 ML VIAL SQ SCH ×4 (05:59→21:15)
[2018-10-07] MEDS: PANTOPRAZOLE 40 MG TABLET PO SCH (06:35)
[2018-10-07 06:48] LABS: Basophils % (A) 0 %; Eosinophils % (A) 0 %; HCT 36.4 % (39.0-53.0); HGB 11.8 gm/dL (13.0-17.5); Lymphocytes # (A) 1.1 k/uL (1.0-4.8); Lymphocytes % (A) 6 %; MCH 29.5 pg (25.0-35.0); MCHC 32.5 g/dL (31.0-37.0); MCV 90.8 fL (80.0-100.0); Mean Platelet Volume 8.7; Monocytes # (A) 0.9 k/uL (0-1.0); Monocytes % (A) 5 %; Neutrophils % (A) 87 %; Platelet Count 251 k/uL (150-450); RBC 4.01 m/uL (4.30-5.90); RDW 13.9 % (11.5-15.5); WBC 17.2 k/uL (3.8-10.6)
[2018-10-07 07:02] LABS: Calcium 7.7 mg/dL (8.4-10.2)
[2018-10-07 07:05] LABS: Potassium 4.2 mmol/L (3.5-5.1)
[2018-10-07] MEDS: IPRATROPIUM-ALBUTEROL 3 ML NEB INHALATION SCH ×4 (07:57→19:42)
[2018-10-07] MEDS: SYMBICORT 160-4.5 MCG INHALER INHALATION SCH ×2 (07:57→19:42)
[2018-10-07] MEDS: LISINOPRIL 10 MG TAB PO SCH (09:38)
[2018-10-07] MEDS: ISOSORBIDE DINITRATE 20 MG TAB PO SCH ×2 (09:38→21:14)
[2018-10-07] MEDS: amLODIPine 10 MG TAB PO SCH (09:38)
[2018-10-07] MEDS: traMADol 50 MG TAB PO SCH ×4 (09:38→21:14)
[2018-10-07] MEDS: predniSONE 20 MG TAB PO SCH (09:39)
[2018-10-07 12:00] LABS: Glucose,Whole Blood 135 mg/dL (75-99)
--- NOTE | 2018-10-07 12:54 | P.PN ---
Subjective Progress Note Date: 10/07/18 A 78-year-old male patient who is being seen in follow-up regarding his shortness of breath. The patient presented with a nonproductive cough related to COPD exacerbation. 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 At this point in time, the exact source of infection is not clear. It could be urine versus a total infection. Possibility of pneumonias was also entertained although this is felt to be less likely. Clinically the patient is doing better. The patient is covered with broad-spectrum antibiotics. No significant cough or sputum production on today's evaluation. VQ scan was done at time of admission was of a low probability. Chest x-ray revealed no acute abnormalities. The patient a combination of a dilator's, antibiotics and as mentioned the blood cultures showing positive for E. coli. Infectious disease also on the case. He is able to sit up on a chair. No nausea. No vomiting. No abdominal pain. No other significant events overnight. On today's evaluation of 10/07/2018, the patient is afebrile hemodynamically stable. The patient is on oral Levaquin 750 mg by mouth daily. No respiratory difficulties. No cough sputum production. No chest that is so wheezing. No altered mentation. He remains on DuoNeb the right seems on the clock in addition to Symbicort for COPD. He is also on a prednisone burst taper and currently on 20 mg dose. His white cell count is down to 17.2. He was 11.8. Renal function is also normalized and the creatinine is down to 1.05. Objective - Vital Signs Vital signs: Vital Signs Temp 97.4 F L 10/07/18 08:00 Pulse 77 10/07/18 11:40 Resp 18 10/07/18 08:00 BP 152/79 10/07/18 08:00 Pulse Ox 100 10/07/18 08:00 Intake & Output 10/06/18 10/07/18 10/07/18 18:59 06:59 18:59 Intake Total 720 180 Output Total 1100 1000 Balance -380 -1000 180 Weight 134.3 kg Intake: Oral 720 180 Output: Urine 1100 1000 Other: Voiding Method Urinal Urinal Urinal # Voids 1 1 - Exam Appearance, comfortable likely distress Head exam was generally normal. There was no scleral icterus or corneal arcus. Mucous membranes were moist. Neck was supple and without jugular venous distension, thyromegaly, or carotid bruits. Carotids were easily palpable bilaterally. There was no adenopathy. Lungs sounds are diminished along with some bibasilar crackles in lung bases bilaterally. Cardiac exam revealed the PMI to be normally situated and sized. The rhythm was regular and no extrasystoles were noted during several minutes of auscultation. The first and second heart sounds were normal and physiologic splitting of the second heart sound was noted. There were no murmurs, rubs, clicks, or gallops. Abdominal exam revealed normal bowel sounds. The abdomen was soft, non-tender, and without masses, organomegaly, or appreciable enlargement of the abdominal aorta. Extremities revealed diminished pulses and no cyanosis or clubbing. There may be potentially a total infection, the largest on the left. There is evidence of chronic venous stasis in the lower extremities bilaterally. The left great toe the medial aspect is erythematous and swollen. There is no evidence of any purulence in that location. Neurologically awake and alert and is no focaldeficits. Skin there is no open wounds or ulcerations this point in time. - Labs CBC & Chem 7: 10/07/18 06:14 10/07/18 06:14 Labs: Abnormal Lab Results - Last 24 Hours (Table) 10/06/18 10/06/18 10/07/18 Range/Units 16:19 20:53 05:44 WBC (3.8-10.6) k/uL RBC (4.30-5.90) m/uL Hgb (13.0-17.5) gm/dL Hct (39.0-53.0) % Neutrophils # (1.3-7.7) k/uL Chloride (98-107) mmol/L Carbon Dioxide (22-30) mmol/L BUN (9-20) mg/dL Glucose (74-99) mg/dL POC Glucose (mg/dL) 217 H 146 H 119 H (75-99) mg/dL Calcium (8.4-10.2) mg/dL 10/07/18 10/07/18 10/07/18 Range/Units 06:14 06:14 11:58 WBC 17.2 H (3.8-10.6) k/uL RBC 4.01 L (4.30-5.90) m/uL Hgb 11.8 L (13.0-17.5) gm/dL Hct 36.4 L (39.0-53.0) % Neutrophils # 15.0 H (1.3-7.7) k/uL Chloride 108 H (98-107) mmol/L Carbon Dioxide 19 L (22-30) mmol/L BUN 54 H (9-20) mg/dL Glucose 114 H (74-99) mg/dL POC Glucose (mg/dL) 135 H (75-99) mg/dL Calcium 7.7 L (8.4-10.2) mg/dL Microbiology - Last 24 Hours (Table) 10/04/18 06:02 Blood Culture - Preliminary Blood No Growth after 72 hours 10/04/18 19:39 Blood Culture - Preliminary Blood No Growth after 48 hours 10/04/18 10:30 Gram Stain - Final Toe - Left First Wound Culture - Final Methicillin resist S. aureus Assessment and Plan Plan: Assessment 1 acute COPD exacerbation, improving 2 acute E. coli septicemia exact source is not clear to me at this point. Pneumonia is doubtful. Consider urine tract infection versus soft tissue infection. 3 leukocytosis secondary to above, improving, and the white cell count is down to 17.2 4 acute kidney injury secondary to above, improving, and the renal function in the form of creatinine is down to 1.05. 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 Continue DuoNeb overestimates [id number]. Symbicort as maintenance treatment for COPD. IV fluids can be dropped to 50 mL an hour. Complete a prednisone burst taper. Ambulate. Renal function is normalized. We 'll continue to follow and discharge planning is in progress.
--- NOTE | 2018-10-07 13:03 | P.PN ---
Subjective Patient resting in bed. States he is feeling some better though still appears dyspneic. Pulmonology reported that patient improving changed to oral antibiotics hopeful discharge soon Objective - Vital Signs Vital signs: Vital Signs Temp 97.4 F L 10/07/18 08:00 Pulse 77 10/07/18 11:40 Resp 18 10/07/18 08:00 BP 152/79 10/07/18 08:00 Pulse Ox 100 10/07/18 08:00 Intake & Output 10/06/18 10/07/18 10/07/18 18:59 06:59 18:59 Intake Total 720 180 Output Total 1100 1000 Balance -380 -1000 180 Weight 134.3 kg Intake: Oral 720 180 Output: Urine 1100 1000 Other: Voiding Method Urinal Urinal Urinal # Voids 1 1 - Constitutional General appearance: Present: obese - EENT Eyes: Present: PERRLA Ears: bilateral: normal - Neck Neck: Present: normal ROM - Respiratory Respiratory: bilateral: diminished - Cardiovascular Rhythm: regular - Gastrointestinal General gastrointestinal: Present: soft - Integumentary Integumentary: Present: normal - Neurologic Neurologic: Present: CNII-XII intact - Musculoskeletal Musculoskeletal: Present: generalized weakness - Psychiatric Psychiatric: Present: A&O x's 3, appropriate affect, intact judgment & insight - Labs CBC & Chem 7: 10/07/18 06:14 10/07/18 06:14 Labs: Abnormal Lab Results - Last 24 Hours (Table) 10/06/18 10/06/18 10/07/18 Range/Units 16:19 20:53 05:44 WBC (3.8-10.6) k/uL RBC (4.30-5.90) m/uL Hgb (13.0-17.5) gm/dL Hct (39.0-53.0) % Neutrophils # (1.3-7.7) k/uL Chloride (98-107) mmol/L Carbon Dioxide (22-30) mmol/L BUN (9-20) mg/dL Glucose (74-99) mg/dL POC Glucose (mg/dL) 217 H 146 H 119 H (75-99) mg/dL Calcium (8.4-10.2) mg/dL 10/07/18 10/07/18 10/07/18 Range/Units 06:14 06:14 11:58 WBC 17.2 H (3.8-10.6) k/uL RBC 4.01 L (4.30-5.90) m/uL Hgb 11.8 L (13.0-17.5) gm/dL Hct 36.4 L (39.0-53.0) % Neutrophils # 15.0 H (1.3-7.7) k/uL Chloride 108 H (98-107) mmol/L Carbon Dioxide 19 L (22-30) mmol/L BUN 54 H (9-20) mg/dL Glucose 114 H (74-99) mg/dL POC Glucose (mg/dL) 135 H (75-99) mg/dL Calcium 7.7 L (8.4-10.2) mg/dL Microbiology - Last 24 Hours (Table) 10/04/18 06:02 Blood Culture - Preliminary Blood No Growth after 72 hours 10/04/18 19:39 Blood Culture - Preliminary Blood No Growth after 48 hours 10/04/18 10:30 Gram Stain - Final Toe - Left First Wound Culture - Final Methicillin resist S. aureus Assessment and Plan Plan: Assessment Chronic COPD with acute exacerbation with purulent tracheobronchitis Bacteremia positive blood culture E. coli Elevated d-dimer VQ scan low probability Leukocytosis Hyponatremia Acute on chronic kidney disease stage III Plasma lactic acid from sepsis Troponin elevated indeterminant History of hypertension Hyperlipidemia Degenerative disc disease History of coronary disease with [place] History of CVA left-sided weakness Chronic cellulitis staph aureus left lower leg Plan Patient oral antibiotics hopeful discharge soon
[2018-10-07 16:43] LABS: Glucose,Whole Blood 164 mg/dL (75-99)
[2018-10-07] MEDS: LEVOFLOXACIN 750 MG TAB PO SCH (17:01)
[2018-10-07 20:45] LABS: Glucose,Whole Blood 161 mg/dL (75-99)
[2018-10-07] MEDS: ATORVASTATIN 10 MG TAB PO SCH (21:14)
[2018-10-07] MEDS: LISINOPRIL 20 MG TAB PO SCH (21:14)
[2018-10-08 06:15] LABS: Glucose,Whole Blood 137 mg/dL (75-99)
[2018-10-08] MEDS: PANTOPRAZOLE 40 MG TABLET PO SCH (06:27)
[2018-10-08] MEDS: INSULIN ASPART 100 UNIT/ML 1 ML 10 ML VIAL SQ SCH ×4 (06:27→20:22)
[2018-10-08 06:33] LABS: Basophils % (A) 0 %; Eosinophils % (A) 0 %; HCT 34.8 % (39.0-53.0); Lymphocytes # (A) 1.6 k/uL (1.0-4.8); Lymphocytes % (A) 10 %; MCHC 31.6 g/dL (31.0-37.0); MCV 91.7 fL (80.0-100.0); Mean Platelet Volume 8.6; Monocytes # (A) 0.6 k/uL (0-1.0); Monocytes % (A) 3 %; Neutrophils # (A) 14.1 k/uL (1.3-7.7); Neutrophils % (A) 86 %; Platelet Count 253 k/uL (150-450); RBC 3.79 m/uL (4.30-5.90); RDW 13.8 % (11.5-15.5); WBC 16.4 k/uL (3.8-10.6)
[2018-10-08 06:42] LABS: Potassium 4.8 mmol/L (3.5-5.1)
[2018-10-08 06:43] LABS: Calcium 8.1 mg/dL (8.4-10.2)
[2018-10-08] MEDS: SYMBICORT 160-4.5 MCG INHALER INHALATION SCH ×2 (08:26→19:50)
[2018-10-08] MEDS: IPRATROPIUM-ALBUTEROL 3 ML NEB INHALATION SCH ×4 (08:27→19:50)
[2018-10-08] MEDS: traMADol 50 MG TAB PO SCH ×4 (08:57→22:47)
[2018-10-08] MEDS: ISOSORBIDE DINITRATE 20 MG TAB PO SCH ×2 (08:58→21:26)
[2018-10-08] MEDS: amLODIPine 10 MG TAB PO SCH (08:58)
[2018-10-08] MEDS: predniSONE 20 MG TAB PO SCH (08:58)
[2018-10-08] MEDS: LISINOPRIL 10 MG TAB PO SCH (08:58)
[2018-10-08 10:51] VITALS: BMI 39.6
--- NOTE | 2018-10-08 11:41 | P.PN ---
Subjective Patient resting in bed continues to be dyspneic states he is not sleeping well at night. Patient is considering of discharge to rehab Objective - Vital Signs Vital signs: Vital Signs Temp 98.4 F 10/08/18 08:00 Pulse 80 10/08/18 08:40 Resp 20 10/08/18 08:00 BP 126/60 10/08/18 08:00 Pulse Ox 99 10/08/18 08:00 Intake & Output 10/07/18 10/08/18 10/08/18 18:59 06:59 18:59 Intake Total 540 200 180 Output Total 1600 300 275 Balance -1060 -100 -95 Weight 132.8 kg 132.8 kg Intake: IV 200 Sodium Chloride 0.9% 1, 200 000 ml @ 50 mls/hr IV . Q20H [facility] Rx#:[id number] Oral 540 180 Output: Urine 1600 300 275 Other: Voiding Method Urinal Urinal - Constitutional General appearance: Present: mild distress, morbidly obese - EENT Eyes: Present: PERRLA Ears: bilateral: normal - Neck Neck: Present: normal ROM - Respiratory Respiratory: bilateral: CTA - Cardiovascular Rhythm: regular - Gastrointestinal General gastrointestinal: Present: soft - Integumentary Integumentary: Present: normal - Neurologic Neurologic: Present: CNII-XII intact - Musculoskeletal Musculoskeletal: Present: generalized weakness - Psychiatric Psychiatric: Present: A&O x's 3, appropriate affect, intact judgment & insight - Labs CBC & Chem 7: 10/08/18 05:39 10/08/18 05:39 Labs: Abnormal Lab Results - Last 24 Hours (Table) 10/07/18 10/07/18 10/07/18 Range/Units 11:58 16:42 20:43 WBC (3.8-10.6) k/uL RBC (4.30-5.90) m/uL Hgb (13.0-17.5) gm/dL Hct (39.0-53.0) % Neutrophils # (1.3-7.7) k/uL BUN (9-20) mg/dL Glucose (74-99) mg/dL POC Glucose (mg/dL) 135 H 164 H 161 H (75-99) mg/dL Calcium (8.4-10.2) mg/dL 10/08/18 10/08/18 10/08/18 Range/Units 05:39 05:39 06:14 WBC 16.4 H (3.8-10.6) k/uL RBC 3.79 L (4.30-5.90) m/uL Hgb 11.0 L (13.0-17.5) gm/dL Hct 34.8 L (39.0-53.0) % Neutrophils # 14.1 H (1.3-7.7) k/uL BUN 37 H (9-20) mg/dL Glucose 130 H (74-99) mg/dL POC Glucose (mg/dL) 137 H (75-99) mg/dL Calcium 8.1 L (8.4-10.2) mg/dL Microbiology - Last 24 Hours (Table) 10/04/18 06:02 Blood Culture - Preliminary Blood No Growth after 96 hours 10/04/18 19:39 Blood Culture - Preliminary Blood No Growth after 72 hours Assessment and Plan Plan: Assessment chronic obstructive pulmonary disease acute exacerbation acute purulent tracheobronchitis Bacteremia positive blood culture E. coli Elevated d-dimer with low probability VQ scan Leukocytosis hyponatremia Chronic kidney disease stage III Plasma lactic acid from sepsis Troponin indeterminate Hypertension Hyperlipidemia History of degenerative joint disease History of coronary disease with [place] history of CVA left-sided weakness chronic cellulitis left lower extremity positive staph aureus Plan Start on oral Levaquin Continue consultation with pulmonology and infectious disease Hopeful discharge soon to extended care facility for rehab
[2018-10-08 12:17] LABS: Glucose,Whole Blood 151 mg/dL (75-99)
--- NOTE | 2018-10-08 16:18 | P.PN ---
Subjective Progress Note Date: 10/08/18 Principal diagnosis: Acute COPD exacerbation, improving, acute E. coli septicemia A 78-year-old male patient who is being seen in follow-up regarding his shortness of breath. The patient presented with a nonproductive cough related to COPD exacerbation. On admission had mild leukocytosis and lactic acidosis and the patient roller turner to have positive blood culture with gram-negative bacillus. At this point in time, the exact source of infection is not clear. It could be urine versus a total infection. Possibility of pneumonias was also entertained although this is felt to be less likely. Clinically the patient is doing better. The patient is covered with broad-spectrum antibiotics. No significant cough or sputum production on today's evaluation. VQ scan was done at time of admission was of a low probability. Chest x-ray revealed no acute abnormalities. The patient a combination of a dilator's, antibiotics and as mentioned the blood cultures showing positive for E. coli. Infectious disease also on the case. He is able to sit up on a chair. No nausea. No vomiting. No abdominal pain. No other significant events overnight. On today's evaluation of 10/07/2018, the patient is afebrile hemodynamically stable. The patient is on oral Levaquin 750 mg by mouth daily. No respiratory difficulties. No cough sputum production. No chest that is so wheezing. No altered mentation. He remains on DuoNeb the right seems on the clock in addition to Symbicort for COPD. He is also on a prednisone burst taper and currently on 20 mg dose. His white cell count is down to 17.2. He was 11.8. Renal function is also normalized and the creatinine is down to 1.05. On 10/08/2018 patient seen in follow-up on medical surgical floor. He is resting comfortably in bed, in no acute distress, no difficulty breathing, no cough, no chest congestion, no wheezing. No fever or chills, patient is dyspneic with exertion, otherwise in no acute distress, room air pulse ox is 97% , left toe wound culture was positive for MRSA, cultures were positive for E. coli, follow blood cultures were negative, patient continues on Levaquin, oral prednisone 20 mg, Symbicort, and nebulized bronchodilators, breathing easier, no acute events overnight, patient is anticipated for discharge to subacute rehab today. From pulmonary perspective patient stable for discharge. Objective - Vital Signs Vital signs: Vital Signs Temp 98.1 F 10/08/18 12:00 Pulse 80 10/08/18 15:43 Resp 20 10/08/18 12:00 BP 123/60 10/08/18 12:00 Pulse Ox 97 10/08/18 12:00 Intake & Output 10/07/18 10/08/18 10/08/18 18:59 06:59 18:59 Intake Total 540 200 180 Output Total 1600 300 675 Balance -1060 -100 -495 Weight 132.8 kg 132.8 kg Intake: IV 200 Sodium Chloride 0.9% 1, 200 000 ml @ 50 mls/hr IV . Q20H [facility] Rx#:[id number] Oral 540 180 Output: Urine 1600 300 675 Other: Voiding Method Urinal Urinal - Exam Appearance, comfortable likely distress Head exam was generally normal. There was no scleral icterus or corneal arcus. Mucous membranes were moist. Neck was supple and without jugular venous distension, thyromegaly, or carotid bruits. Carotids were easily palpable bilaterally. There was no adenopathy. Lungs sounds are diminished along with some bibasilar crackles in lung bases bilaterally. Cardiac exam revealed the PMI to be normally situated and sized. The rhythm was regular and no extrasystoles were noted during several minutes of auscultation. The first and second heart sounds were normal and physiologic splitting of the second heart sound was noted. There were no murmurs, rubs, clicks, or gallops. Abdominal exam revealed normal bowel sounds. The abdomen was soft, non-tender, and without masses, organomegaly, or appreciable enlargement of the abdominal aorta. Extremities revealed diminished pulses and no cyanosis or clubbing. There may be potentially a total infection, the largest on the left. There is evidence of chronic venous stasis in the lower extremities bilaterally. The left great toe the medial aspect is erythematous and swollen. There is no evidence of any purulence in that location. Neurologically awake and alert and is no focaldeficits. Skin there is no open wounds or ulcerations this point in time. - Labs CBC & Chem 7: 10/08/18 05:39 10/08/18 05:39 Labs: Abnormal Lab Results - Last 24 Hours (Table) 10/07/18 10/07/18 10/08/18 Range/Units 16:42 20:43 05:39 WBC 16.4 H (3.8-10.6) k/uL RBC 3.79 L (4.30-5.90) m/uL Hgb 11.0 L (13.0-17.5) gm/dL Hct 34.8 L (39.0-53.0) % Neutrophils # 14.1 H (1.3-7.7) k/uL BUN (9-20) mg/dL Glucose (74-99) mg/dL POC Glucose (mg/dL) 164 H 161 H (75-99) mg/dL Calcium (8.4-10.2) mg/dL 10/08/18 10/08/18 10/08/18 Range/Units 05:39 06:14 12:15 WBC (3.8-10.6) k/uL RBC (4.30-5.90) m/uL Hgb (13.0-17.5) gm/dL Hct (39.0-53.0) % Neutrophils # (1.3-7.7) k/uL BUN 37 H (9-20) mg/dL Glucose 130 H (74-99) mg/dL POC Glucose (mg/dL) 137 H 151 H (75-99) mg/dL Calcium 8.1 L (8.4-10.2) mg/dL Microbiology - Last 24 Hours (Table) 10/04/18 06:02 Blood Culture - Preliminary Blood No Growth after 96 hours 10/04/18 19:39 Blood Culture - Preliminary Blood No Growth after 72 hours Assessment and Plan Plan: Assessment: #1. Acute COPD exacerbation improving #2. acute E. coli septicemia exact source is not clear to me at this point. Pneumonia is doubtful. Consider urine tract infection versus soft tissue infection. #3. Left total wound culture positive for MRSA #4. Lactic acidosis, improved with IV hydration #5. Acute kidney injury #6. Nicotine dependence, in remission, quit in 1992, prior to that smoked for 50 years of one half packs daily #7. Elevated troponins #8. Draining chronic left toe wound #9. Chronic left leg cellulitis, and patient follows in the wound clinic #10. History of CVA, with left-sided weakness #11. Gait dysfunction, uses cane #12. Hypertension, hyperlipidemia, previous episode of myocardial infarction #13. Osteoarthritis #14. 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 Clinically patient is stable, no acute events overnight, and is stable for transfer to subacute rehab today I performed a history & physical examination of the patient and discussed their management with my nurse practitioner, Jacquelyn Lugo. I reviewed the nurse practitioner's note and agree with the documented findings and plan of care. Lung sounds are positive for clear. The findings and the impression was discussed with the patient. I attest to the documentation by the nurse practitioner. Time with Patient: Less than 30
[2018-10-08 16:40] LABS: Glucose,Whole Blood 116 mg/dL (75-99)
[2018-10-08] MEDS: SODIUM CHLORIDE 0.9% 1,000 ML IV SCH (17:06)
[2018-10-08] MEDS: LEVOFLOXACIN 750 MG TAB PO SCH (17:43)
[2018-10-08 20:19] LABS: Glucose,Whole Blood 172 mg/dL (75-99)
[2018-10-08] MEDS: ATORVASTATIN 10 MG TAB PO SCH (20:22)
[2018-10-08] MEDS: LISINOPRIL 20 MG TAB PO SCH (21:26)
[2018-10-09] MEDS: TEMAZEPAM 15 MG CAP PO PRN (00:52)
[2018-10-09] MEDS: HYDROcodone/APAP 5-325MG 1 EACH TAB PO PRN (03:27)
[2018-10-09 05:48] LABS: Glucose,Whole Blood 132 mg/dL (75-99)
[2018-10-09] MEDS: PANTOPRAZOLE 40 MG TABLET PO SCH (06:25)
[2018-10-09] MEDS: INSULIN ASPART 100 UNIT/ML 1 ML 10 ML VIAL SQ SCH ×2 (06:25→11:54)
[2018-10-09 06:56] LABS: Basophils # (A) 0.1 k/uL (0-0.2); Basophils % (A) 0 %; Eosinophils # (A) 0.1 k/uL (0-0.7); Eosinophils % (A) 1 %; HCT 36.9 % (39.0-53.0); HGB 11.6 gm/dL (13.0-17.5); Hypochromasia Slight; Lymphocytes # (A) 1.8 k/uL (1.0-4.8); Lymphocytes % (A) 10 %; MCH 29.2 pg (25.0-35.0); MCHC 31.4 g/dL (31.0-37.0); Mean Platelet Volume 8.1; Monocytes % (A) 6 %; Neutrophils # (A) 14.7 k/uL (1.3-7.7); Neutrophils % (A) 82 %; Platelet Count 303 k/uL (150-450); RBC 3.97 m/uL (4.30-5.90); RDW 13.8 % (11.5-15.5); WBC 17.8 k/uL (3.8-10.6)
[2018-10-09 07:12] LABS: Calcium 8.3 mg/dL (8.4-10.2); Potassium 4.9 mmol/L (3.5-5.1)
[2018-10-09] MEDS: IPRATROPIUM-ALBUTEROL 3 ML NEB INHALATION SCH ×2 (07:52→11:28)
[2018-10-09] MEDS: SYMBICORT 160-4.5 MCG INHALER INHALATION SCH (07:52)
[2018-10-09] MEDS: LISINOPRIL 10 MG TAB PO SCH (09:28)
[2018-10-09] MEDS: traMADol 50 MG TAB PO SCH ×2 (09:28→14:02)
[2018-10-09] MEDS: amLODIPine 10 MG TAB PO SCH (09:28)
[2018-10-09] MEDS: ISOSORBIDE DINITRATE 20 MG TAB PO SCH (09:29)
[2018-10-09] MEDS: predniSONE 20 MG TAB PO SCH (09:29)
[2018-10-09 10:50] VITALS: RESP 20
--- NOTE | 2018-10-09 11:42 | P.DS ---
Providers Date of admission: 10/03/18 17:22 Expected date of discharge: 10/09/18 Attending physician: Mark Mitchell Consults: 10/03/18 16:18 Consult Physician Urgent Consulting Provider: Luiz Phillips Consult Reason/Comments: dyspnea Do you want consulting provider notified?: Yes 10/03/18 16:33 Consult Physician Urgent Consulting Provider: Karen Fam Consult Reason/Comments: Cardiac evaluation Do you want consulting provider notified?: Yes 10/04/18 15:25 Consult Physician Routine Consulting Provider: Juan Luis Rodgers Consult Reason/Comments: Wound Care- Left Great toe, +blood cultures Do you want consulting provider notified?: Yes Primary care physician: Mark Mitchell Hospital Course: 78-year-old male was admitted to through the emergency room with exacerbation of COPD. Patient was found to be septic with gram-negative bacilli E. coli. Patient was evaluated by infectious disease Dr. Rodgers and pulmonology. Patient 's been stabilized on oral medication and stable to transfer to extended care facility [facility] Assessment COPD exacerbation with purulent tracheobronchitis Bacteremia positive E. 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 Generalized weakness Plan Transfer to [facility] for rehabilitation Patient Condition at Discharge: Serious Plan - Discharge Summary Discharge Rx Participant: No New Discharge Prescriptions: New Acetaminophen Tab [Tylenol] 500 mg PO Q6HR PRN tab PRN Reason: Fever and/ or Mild Pain ALPRAZolam [Xanax] 0.25 mg PO TID PRN 3 Days #9 tab PRN Reason: Anxiety HYDROcodone/APAP 5-325MG [[place] 5-325] 1 each PO Q6HR PRN 3 Days #12 tab PRN Reason: Moderate Pain Ipratropium-Albuterol Nebulize [Duoneb 0.5 mg-3 mg/3 ml Soln] 3 ml INHALATION RT-QID ampul.neb Levofloxacin [Levaquin] 750 mg PO 1800 tab Pantoprazole [Protonix] 40 mg PO AC-BRKFST tablet. predniSONE 20 mg PO DAILY tab Continue amLODIPine BESYLATE [Norvasc] 10 mg PO DAILY Simvastatin [Zocor] 20 mg PO HS Isosorbide Dinitrate [Isordil] 40 mg PO BID Nitroglycerin Sl Tabs [Nitrostat] 0.4 mg SUBLINGUAL Q5M PRN PRN Reason: Chest Pain Budesonide/Formoterol Fumarate [Symbicort 160-4.5 Mcg Inhaler] 2 puff INHALATION RT-BID Albuterol Inhaler [Ventolin Hfa Inhaler] 1 puff INHALATION RT-QID PRN PRN Reason: Shortness Of Breath Lisinopril [Zestril] 10 mg PO DAILY Discontinued traMADol HCL [Ultram] 50 mg PO QID Lisinopril [Zestril] 20 mg PO HS No Action Naloxone HCl [Narcan] 4 mg NASAL ONCE PRN PRN Reason: OVERDOSE Discharge Medication List Isosorbide Dinitrate [Isordil] 40 mg PO BID 04/03/16 [History] Simvastatin [Zocor] 20 mg PO HS 04/03/16 [History] amLODIPine BESYLATE [Norvasc] 10 mg PO DAILY 04/03/16 [History] Albuterol Inhaler [Ventolin Hfa Inhaler] 1 puff INHALATION RT-QID PRN 10/03/18 [ History] Budesonide/Formoterol Fumarate [Symbicort 160-4.5 Mcg Inhaler] 2 puff INHALATION RT-BID 10/03/18 [History] Lisinopril [Zestril] 10 mg PO DAILY 10/03/18 [History] Naloxone HCl [Narcan] 4 mg NASAL ONCE PRN 10/03/18 [History] Nitroglycerin Sl Tabs [Nitrostat] 0.4 mg SUBLINGUAL Q5M PRN 10/03/18 [History] ALPRAZolam [Xanax] 0.25 mg PO TID PRN 3 Days #9 tab 10/09/18 [Rx] Acetaminophen Tab [Tylenol] 500 mg PO Q6HR PRN tab 10/09/18 [Rx] HYDROcodone/APAP 5-325MG [Frank[place] 5-325] 1 each PO Q6HR PRN 3 Days #12 tab [Rx] Ipratropium-Albuterol Nebulize [Duoneb 0.5 mg-3 mg/3 ml Soln] 3 ml INHALATION RT -QID ampul.neb 10/09/18 [Rx] Levofloxacin [Levaquin] 750 mg PO 1800 tab 10/09/18 [Rx] Pantoprazole [Protonix] 40 mg PO AC-BRKFST tablet. 10/09/18 [Rx] predniSONE 20 mg PO DAILY tab 10/09/18 [Rx] Follow up Appointment(s)/Referral(s): Mark Mitchell MD [Primary Care Provider] - 10/14/18 11:40 am (Saturday) Luiz Phillips DO [Doctor of Osteopathic Medicine] - 1 Week
[2018-10-09 12:04] LABS: Glucose,Whole Blood 121 mg/dL (75-99)
[2018-10-09 12:48] VITALS: BP 111/59; PULSE 91; TEMP 97.9
[2018-10-09] MEDS: SODIUM CHLORIDE 0.9% 1,000 ML IV SCH (14:02)
== END 2018-10-09 14:38 | DRG 872 ==
LOC: EC 12:46 → 3SCARD 17:22
PROVIDERS: ADMIT Family Medicine; ATTEND Family Medicine
DX: A41.51 Sepsis due to Escherichia coli [E. coli] (principal); E87.1 Hypo-osmolality and hyponatremia; E87.2 Acidosis; I69.354 Hemiplegia and hemiparesis following cerebral infarction affecting left non-dominant side; J44.1 Chronic obstructive pulmonary disease with (acute) exacerbation; L03.116 Cellulitis of left lower limb; N17.9 Acute kidney failure, unspecified; B95.61 Methicillin susceptible Staphylococcus aureus infection as the cause of diseases classified elsewhere; E66.01 Morbid (severe) obesity due to excess calories; E78.5 Hyperlipidemia, unspecified; F17.210 Nicotine dependence, cigarettes, uncomplicated; I12.9 Hypertensive chronic kidney disease with stage 1 through stage 4 chronic kidney disease, or unspecified chronic kidney disease; I25.10 Atherosclerotic heart disease of native coronary artery without angina pectoris; I25.2 Old myocardial infarction; I73.9 Peripheral vascular disease, unspecified; L97.509 Non-pressure chronic ulcer of other part of unspecified foot with unspecified severity; M19.90 Unspecified osteoarthritis, unspecified site; N18.3 Chronic kidney disease, stage 3 (moderate); R65.20 Severe sepsis without septic shock; R79.1 Abnormal coagulation profile; Z68.39 Body mass index [BMI] 39.0-39.9, adult; Z79.51 Long term (current) use of inhaled steroids; Z79.899 Other long term (current) drug therapy; Z85.820 Personal history of malignant melanoma of skin; Z86.14 Personal history of Methicillin resistant Staphylococcus aureus infection; Z90.49 Acquired absence of other specified parts of digestive tract
CPT/HCPCS: 36415; 71046; 76770; 78582; 80048; 80053; 82272; 82550; 82553; 83036; 83605; 83880; 84484; 85025; 85027; 85379; 85610; 85730; 87040; 87070; 87077; 87086; 87186; 87205; 87324; 93005; 93306; 94640; 94760; 96365; 96366; 96367; 96375; 96376; 99291

== ENCOUNTER 2021-09-17 02:04 | Inpatient (IN) | payer MEDICARE ==
[2021-09-17] MEDS ORDERED: SODIUM CHLORIDE 0.9% 1,000 ML IV STA (02:38)
--- NOTE | 2021-09-17 02:40 | ED ---
Weakness HPI - General Chief complaint: Weakness Stated complaint: Fall Time Seen by Provider: 09/17/21 02:33 Source: patient, EMS Mode of arrival: EMS Limitations: physical limitation - Related Data Home Medications Medication Instructions Recorded Confirmed Isosorbide Dinitrate [Isordil] 40 mg PO BID 04/03/16 10/03/18 Simvastatin [Zocor] 20 mg PO HS 04/03/16 10/03/18 amLODIPine BESYLATE [Norvasc] 10 mg PO DAILY 04/03/16 10/03/18 Albuterol Inhaler (Mhu) [Ventolin 1 puff INHALATION RT-QID PRN 10/03/18 10/03/18 Hfa Inhaler (Mhu)] Budesonide/Formoterol Fumarate 2 puff INHALATION RT-BID 10/03/18 10/03/18 [Symbicort 160-4.5 Mcg Inhaler] Naloxone HCl [Narcan] 4 mg NASAL ONCE PRN 10/03/18 10/03/18 Nitroglycerin Sl Tabs [Nitrostat] 0.4 mg SUBLINGUAL Q5M PRN 10/03/18 10/03/18 lisinopriL [Zestril] 10 mg PO DAILY 10/03/18 10/03/18 Previous Rx's Medication Instructions Recorded ALPRAZolam [Xanax] 0.25 mg PO TID PRN 3 Days #9 tab 10/09/18 Acetaminophen Tab [Tylenol] 500 mg PO Q6HR PRN tab 10/09/18 HYDROcodone/APAP 5-325MG [[place] 1 each PO Q6HR PRN 3 Days #12 tab 10/09/18 5-325] Ipratropium-Albuterol Nebulize 3 ml INHALATION RT-QID ampul.neb 10/09/18 [Duoneb 0.5 mg-3 mg/3 ml Soln] Levofloxacin [Levaquin] 750 mg PO 1800 tab 10/09/18 Pantoprazole [Protonix] 40 mg PO AC-BRKFST tablet. 10/09/18 predniSONE [Deltasone] 20 mg PO DAILY tab 10/09/18 Allergies Allergy/AdvReac Type Severity Reaction Status Date / Time No Known Allergies Allergy Verified 09/17/21 02:11 Review of Systems ROS Statement: Those systems with pertinent positive or pertinent negative responses have been documented in the HPI. ROS Other: All systems not noted in ROS Statement are negative. Past Medical History Past Medical History: Asthma, CVA/TIA, Hyperlipidemia, Hypertension, Myocardial Infarction (DC), Osteoarthritis (OA) Additional Past Medical History / Comment(s): CVA 1992-left side weakness- uses mostly the wheelchair but able to use cane/walker as well, pastwound on lower left leg- treated at [facility],past venous leg ulcers melanoma back and basal skin cancer L shoulder. Last Myocardial Infarction Date:: 2008 History of Any Multi-Drug Resistant Organisms: MRSA Date of last positivie culture/infection: 10/04/18 MDRO Source:: Left First Toe Past Surgical History: Appendectomy, Hernia Repair, Orthopedic Surgery Additional Past Surgical History / Comment(s): 05/01/16 Wide exicision melanoma back, excision lesion L shoulder basal cancer. Other surgical hx: DEBRIDEMENT OF LEFT CALF/LEG, umbilical hernia repair, lumbar spine surgery. Past Anesthesia/Blood Transfusion Reactions: No Reported Reaction, Motion Sickness Past Psychological History: No Psychological Hx Reported Smoking Status: Former smoker Past Alcohol Use History: Occasional Past Drug Use History: None Reported - Past Family History Mother History Unknown: Yes Father History Unknown: Yes General Exam Limitations: physical limitation Course Vital Signs 09/17/21 09/17/21 02:06 03:00 Temperature 99.2 F Pulse Rate 97 84 Respiratory 18 18 Rate Blood Pressure 123/63 134/76 O2 Sat by Pulse 95 95 Oximetry EKG Findings - EKG Comments: EKG Findings:: EKG shows sinus rhythm 95 VA 212 QRS 82 QTC 422 Medical Decision Making - Lab Data Result diagrams: 09/17/21 02:48 09/17/21 02:48 Lab Results 09/17/21 09/17/21 09/17/21 Range/Units 02:48 02:48 02:48 WBC 7.4 (3.8-10.6) k/uL RBC 4.83 (4.30-5.90) m/uL Hgb 15.7 (13.0-17.5) gm/dL Hct 43.6 (39.0-53.0) % MCV 90.3 (80.0-100.0) fL MCH 32.5 (25.0-35.0) pg MCHC 36.0 (31.0-37.0) g/dL RDW 13.2 (11.5-15.5) % Plt Count 137 L (150-450) k/uL MPV 9.9 Neutrophils % 84 % Lymphocytes % 8 % Monocytes % 6 % Eosinophils % 0 % Basophils % 0 % Neutrophils # 6.2 (1.3-7.7) k/uL Lymphocytes # 0.6 L (1.0-4.8) k/uL Monocytes # 0.4 (0-1.0) k/uL Eosinophils # 0.0 (0-0.7) k/uL Basophils # 0.0 (0-0.2) k/uL PT 11.2 (9.0-12.0) sec INR 1.1 (<1.2) APTT 24.2 (22.0-30.0) sec Sodium (137-145) mmol/L Potassium (3.5-5.1) mmol/L Chloride (98-107) mmol/L Carbon Dioxide (22-30) mmol/L Anion Gap mmol/L BUN (9-20) mg/dL Creatinine (0.66-1.25) mg/dL Est GFR (CKD-EPI)AfAm (>60 ml/min/1.73 sqM) Est GFR (CKD-EPI)NonAf (>60 ml/min/1.73 sqM) Glucose (74-99) mg/dL Plasma Lactic Acid Glen (0.7-2.0) mmol/L Calcium (8.4-10.2) mg/dL Phosphorus (2.5-4.5) mg/dL Magnesium (1.6-2.3) mg/dL Total Bilirubin (0.2-1.3) mg/dL AST (17-59) U/L ALT (4-49) U/L Alkaline Phosphatase (38-126) U/L Lactate Dehydrogenase (313-618) U/L Troponin I (0.000-0.034) ng/mL C-Reactive Protein (<1.0) mg/dL NT-Pro-B Natriuret Pep pg/mL Total Protein (6.3-8.2) g/dL Albumin (3.5-5.0) g/dL Urine Color Yellow Urine Appearance Cloudy (Clear) Urine pH 5.0 (5.0-8.0) Ur Specific Stoddard 1.012 (1.001-1.035) Urine Protein Trace H (Negative) Urine Glucose (UA) Negative (Negative) Urine Ketones Negative (Negative) Urine Blood Small H (Negative) Urine Nitrite Positive (Negative) Urine Bilirubin Negative (Negative) Urine Urobilinogen <2.0 (<2.0) mg/dL Ur Leukocyte Esterase Large H (Negative) Urine RBC 6 H (0-5) /hpf Urine WBC 143 H (0-5) /hpf Urine WBC Clumps Many H (None) /hpf Ur Squamous Epith Cells 3 (0-4) /hpf Urine Bacteria Many H (None) /hpf Hyaline Casts 9 H (0-2) /lpf Urine Mucus Rare H (None) /hpf Coronavirus (PCR) (Not Detectd) 09/17/21 09/17/21 09/17/21 Range/Units 02:48 02:48 02:48 WBC (3.8-10.6) k/uL RBC (4.30-5.90) m/uL Hgb (13.0-17.5) gm/dL Hct (39.0-53.0) % MCV (80.0-100.0) fL MCH (25.0-35.0) pg MCHC (31.0-37.0) g/dL RDW (11.5-15.5) % Plt Count (150-450) k/uL MPV Neutrophils % % Lymphocytes % % Monocytes % % Eosinophils % % Basophils % % Neutrophils # (1.3-7.7) k/uL Lymphocytes # (1.0-4.8) k/uL Monocytes # (0-1.0) k/uL Eosinophils # (0-0.7) k/uL Basophils # (0-0.2) k/uL PT (9.0-12.0) sec INR (<1.2) APTT (22.0-30.0) sec Sodium 133 L (137-145) mmol/L Potassium 4.9 (3.5-5.1) mmol/L Chloride 101 (98-107) mmol/L Carbon Dioxide 19 L (22-30) mmol/L Anion Gap 13 mmol/L BUN 67 H (9-20) mg/dL Creatinine 3.74 H (0.66-1.25) mg/dL Est GFR (CKD-EPI)AfAm 17 (>60 ml/min/1.73 sqM) Est GFR (CKD-EPI)NonAf 14 (>60 ml/min/1.73 sqM) Glucose 109 H (74-99) mg/dL Plasma Lactic Acid Glen 1.3 (0.7-2.0) mmol/L Calcium 8.6 (8.4-10.2) mg/dL Phosphorus 3.6 (2.5-4.5) mg/dL Magnesium 2.1 (1.6-2.3) mg/dL Total Bilirubin 0.7 (0.2-1.3) mg/dL AST 44 (17-59) U/L ALT 23 (4-49) U/L Alkaline Phosphatase 112 (38-126) U/L Lactate Dehydrogenase 500 (313-618) U/L Troponin I 0.019 (0.000-0.034) ng/mL C-Reactive Protein 6.4 H (<1.0) mg/dL NT-Pro-B Natriuret Pep pg/mL Total Protein 7.3 (6.3-8.2) g/dL Albumin 3.7 (3.5-5.0) g/dL Urine Color Urine Appearance (Clear) Urine pH (5.0-8.0) Ur Specific Stoddard (1.001-1.035) Urine Protein (Negative) Urine Glucose (UA) (Negative) Urine Ketones (Negative) Urine Blood (Negative) Urine Nitrite (Negative) Urine Bilirubin (Negative) Urine Urobilinogen (<2.0) mg/dL Ur Leukocyte Esterase (Negative) Urine RBC (0-5) /hpf Urine WBC (0-5) /hpf Urine WBC Clumps (None) /hpf Ur Squamous Epith Cells (0-4) /hpf Urine Bacteria (None) /hpf Hyaline Casts (0-2) /lpf Urine Mucus (None) /hpf Coronavirus (PCR) (Not Detectd) 09/17/21 09/17/21 Range/Units 02:48 02:58 WBC (3.8-10.6) k/uL RBC (4.30-5.90) m/uL Hgb (13.0-17.5) gm/dL Hct (39.0-53.0) % MCV (80.0-100.0) fL MCH (25.0-35.0) pg MCHC (31.0-37.0) g/dL RDW (11.5-15.5) % Plt Count (150-450) k/uL MPV Neutrophils % % Lymphocytes % % Monocytes % % Eosinophils % % Basophils % % Neutrophils # (1.3-7.7) k/uL Lymphocytes # (1.0-4.8) k/uL Monocytes # (0-1.0) k/uL Eosinophils # (0-0.7) k/uL Basophils # (0-0.2) k/uL PT (9.0-12.0) sec INR (<1.2) APTT (22.0-30.0) sec Sodium (137-145) mmol/L Potassium (3.5-5.1) mmol/L Chloride (98-107) mmol/L Carbon Dioxide (22-30) mmol/L Anion Gap mmol/L BUN (9-20) mg/dL Creatinine (0.66-1.25) mg/dL Est GFR (CKD-EPI)AfAm (>60 ml/min/1.73 sqM) Est GFR (CKD-EPI)NonAf (>60 ml/min/1.73 sqM) Glucose (74-99) mg/dL Plasma Lactic Acid Glen (0.7-2.0) mmol/L Calcium (8.4-10.2) mg/dL Phosphorus (2.5-4.5) mg/dL Magnesium (1.6-2.3) mg/dL Total Bilirubin (0.2-1.3) mg/dL AST (17-59) U/L ALT (4-49) U/L Alkaline Phosphatase (38-126) U/L Lactate Dehydrogenase (313-618) U/L Troponin I (0.000-0.034) ng/mL C-Reactive Protein (<1.0) mg/dL NT-Pro-B Natriuret Pep 114 pg/mL Total Protein (6.3-8.2) g/dL Albumin (3.5-5.0) g/dL Urine Color Urine Appearance (Clear) Urine pH (5.0-8.0) Ur Specific Stoddard (1.001-1.035) Urine Protein (Negative) Urine Glucose (UA) (Negative) Urine Ketones (Negative) Urine Blood (Negative) Urine Nitrite (Negative) Urine Bilirubin (Negative) Urine Urobilinogen (<2.0) mg/dL Ur Leukocyte Esterase (Negative) Urine RBC (0-5) /hpf Urine WBC (0-5) /hpf Urine WBC Clumps (None) /hpf Ur Squamous Epith Cells (0-4) /hpf Urine Bacteria (None) /hpf Hyaline Casts (0-2) /lpf Urine Mucus (None) /hpf Coronavirus (PCR) Detected A (Not Detectd) Disposition Clinical Impression: UTI (urinary tract infection), Coronavirus infection, Dehydration Disposition: ADMITTED IP TO THIS HOSP Condition: Fair Is patient prescribed a controlled substance at d/c from ED?: No Referrals: Mark Mitchell MD [Primary Care Provider] - 1-2 days
[2021-09-17 03:30] LABS: Basophils % (A) 0 %; Eosinophils % (A) 0 %; HCT 43.6 % (39.0-53.0); HGB 15.7 gm/dL (13.0-17.5); Lymphocytes # (A) 0.6 k/uL (1.0-4.8); Lymphocytes % (A) 8 %; MCH 32.5 pg (25.0-35.0); MCV 90.3 fL (80.0-100.0); Mean Platelet Volume 9.9; Monocytes # (A) 0.4 k/uL (0-1.0); Monocytes % (A) 6 %; Neutrophils # (A) 6.2 k/uL (1.3-7.7); Neutrophils % (A) 84 %; Platelet Count 137 k/uL (150-450); RBC 4.83 m/uL (4.30-5.90); RDW 13.2 % (11.5-15.5); WBC 7.4 k/uL (3.8-10.6)
[2021-09-17 03:57] LABS: Albumin 3.7 g/dL (3.5-5.0); C Reactive Protein 6.4 mg/dL (<1.0); Calcium 8.6 mg/dL (8.4-10.2); Magnesium 2.1 mg/dL (1.6-2.3); Phosphorus 3.6 mg/dL (2.5-4.5); Potassium 4.9 mmol/L (3.5-5.1); Total Bilirubin 0.7 mg/dL (0.2-1.3); Total Protein 7.3 g/dL (6.3-8.2)
--- NOTE | 2021-09-17 04:04 | XR ---
EXAMINATION TYPE: XR chest 1V portable DATE OF EXAM: 09/17/2021 COMPARISON: 10/03/2018 HISTORY: Fall. Chest pain. TECHNIQUE: Single view FINDINGS: There is no heart failure nor confluent pneumonic infiltrate. Costophrenic angles are clear . There are no hilar masses. IMPRESSION: No active cardiopulmonary disease. No change.
[2021-09-17 04:24] LABS: INR 1.1 (<1.2); Partial Thromboplastin Time 24.2 sec (22.0-30.0); Prothrombin Time 11.2 sec (9.0-12.0)
[2021-09-17 04:26] LABS: Appearance,Urine Cloudy (Clear); Bacteria,Urine Many /hpf; Bilirubin,Urine Negative (Negative); Blood,Urine Small (Negative); Color,Urine Yellow; Glucose,Urine (UA) Negative (Negative); Hyaline Casts,Urine 9 /lpf (0-2); Ketones,Urine Negative (Negative); Leukocyte Esterase,Urine Large (Negative); Mucus,Urine Rare /hpf; Nitrite,Urine Positive (Negative); Protein,Urine Trace (Negative); RBC,Urine 6 /hpf (0-5); Specific Gravity,Urine 1.012 (1.001-1.035); Squamous Epithelial Cell,Urine 3 /hpf (0-4); Urobilinogen,Urine <2.0 mg/dL (<2.0); WBC,Urine 143 /hpf (0-5)
[2021-09-17] MEDS ORDERED: NALOXONE 0.4 MG/ML 1 ML VIAL IV PRN (05:46)
[2021-09-17] MEDS ORDERED: ACETAMINOPHEN TAB 325 MG TAB PO PRN (05:46)
[2021-09-17] MEDS ORDERED: ONDANSETRON 4 MG/2 ML VIAL IVP PRN (05:46)
[2021-09-17] MEDS ORDERED: MORPHINE SULFATE 4 MG/ML SYRINGE IV PRN (05:46)
[2021-09-17] MEDS: SODIUM CHLORIDE 0.9% 1,000 ML IV SCH ×2 (06:57→14:49)
[2021-09-17] MEDS: ENOXAPARIN 40 MG/0.4 ML SYRINGE SQ SCH ×2 (09:01→11:40)
[2021-09-17] MEDS ORDERED: NITROGLYCERIN SL TABS 0.4 MG TAB SUBLINGUAL PRN (10:08)
[2021-09-17] MEDS ORDERED: methocarbamoL 750 MG TAB PO PRN (10:08)
[2021-09-17] MEDS: DEXAMETHASONE SOD PHOSPHATE 10 MG/ML 1 ML VIAL IVP SCH (11:40)
[2021-09-17] MEDS: ASCORBIC ACID 500 MG TAB PO SCH (11:40)
[2021-09-17] MEDS: CHOLECALCIFEROL 25 MCG (1000 IU) TABLET PO SCH (11:40)
[2021-09-17] MEDS: amLODIPine 10 MG TAB PO SCH (11:43)
[2021-09-17] MEDS: ZINC SULFATE 220 MG CAP PO SCH (11:46)
--- NOTE | 2021-09-17 13:34 | P.CNPUL ---
History of Present Illness Consult date: 09/17/21 Reason for consult: dyspnea History of present illness: This is an 81-year-old male patient who was feeling weak at home and he was having falls and he contacted EMS and he checked himself to the hospital. He is known to me of taking care of him in the past because of a gram-negative UTI and sepsis back in 2018. He is also known to have multiple medical problems and comorbidities. He is known to have CVA with some left-sided weakness, hyp ertension, hyperlipidemia, CAD with previous UT, osteoarthritis and he has previous history of melanoma of his back that was resected. He also suffers from COPD. He started getting sick approximately 1 week ago. He felt progressively more weak. Note that he has chronic urinary incontinence. He has had previous history of UTIs. During this current admission, he was checked for COVID 19 and the inspector returned materials to be positive. He is reporting some increased shortness of breath and cough and congestion. Currently is on 4 L and at home he does not use oxygen. He states that he is not using any oxygen at home. He uses only albuterol at home. Apparently he was on 95% on room air when he arrived to the emergency and currently is on 4 L. I'm not sure if he desaturated going to there is no documentation of the patient desaturated in the emergency. In any rate, I reviewed the chest x-ray. There is no acute abnormalities. On examination he has some crackles in the lung bases bilaterally. At the same time, his UA was abnormal and he suspected to have any cardiogenic infection. He was started on Rocephin. His current white cell count is at 7.4 with a hemoglobin of 15.7, he has lymphopenia, serum bicarb is at 19 with a BUN of 67 and a creatinine of 3.7 and his LDH level is 500, tropo nins at 0.01, UA is abnormal with many WBCs. Troponin is at 0.019. Review of Systems Constitutional: Reports fatigue, Reports poor appetite, Reports weakness Eyes: denies as per HPI, denies blurred vision, denies bulging eye, denies d ecreased vision, denies diplopia, denies discharge, denies dry eye, denies irritation, denies itching, denies pain, denies photophobia, denies loss of peripheral vision, denies loss of vision, denies tunnel vision/blind spots Ears: bilateral: decreased hearing, deny: ear discharge, earache, tinnitus Ears, nose, mouth and throat: Reports as per HPI Breasts: absent: as per HPI, gynecomastia Cardiovascular: Reports decreased exercise tolerance, Reports dyspnea on exertion, Reports shortness of breath Respiratory: Reports cough, Reports dyspnea Gastrointestinal: Reports as per HPI Genitourinary: Reports as per HPI Musculoskeletal: Reports as per HPI, Reports frequent falls, Reports gait dysfunction Musculoskeletal: absent: ankle pain, ankle stiffness, ankle swelling, as per HPI, elbow pain, elbow stiffness, elbow swelling, foot pain, foot stiffness, foot swelling, hand pain, hand stiffness, hand swelling, hip pain, hip stiffness, hip swelling, knee pain, knee stiffness, knee swelling, shoulder pain, shoulder stiffness, shoulder swelling, wrist pain, wrist stiffness, wrist swelling Integumentary: Reports as per HPI Neurological: Reports as per HPI, Reports weakness Psychiatric: Reports as per HPI Endocrine: Reports as per HPI, Reports fatigue Hematologic/Lymphatic: Reports as per HPI Allergic/Immunologic: Reports as per HPI Past Medical History Past Medical History: Asthma, CVA/TIA, Hyperlipidemia, Hypertension, Myocardial Infarction (UT), Osteoarthritis (OA) Additional Past Medical History / Comment(s): CVA 1992-left side weakness- uses mostly the wheelchair but able to use cane/walker as well, pastwound on lower left leg- treated at [facility] wound center,past venous leg ulcers melanoma back and basal skin cancer L shoulder. Last Myocardial Infarction Date:: 2008 History of Any Multi-Drug Resistant Organisms: MRSA Date of last positivie culture/infection: 10/04/18 MDRO Source:: Left First Toe Past Surgical History: Appendectomy, Hernia Repair, Orthopedic Surgery Additional Past Surgical History / Comment(s): 05/01/16 Wide exicision melanoma back, excision lesion L shoulder basal cancer. Other surgical hx: DEBRIDEMENT OF LEFT CALF/LEG, umbilical hernia repair, lumbar spine surgery. Past Anesthesia/Blood Transfusion Reactions: No Reported Reaction, Motion Sickness Past Psychological History: No Psychological Hx Reported Smoking Status: Former smoker Past Alcohol Use History: Occasional Past Drug Use History: None Reported - Past Family History Mother History Unknown: Yes Father History Unknown: Yes Medications and Allergies Home Medications Medication Instructions Recorded Confirmed Type Isosorbide Dinitrate [Isordil] 40 mg PO BID 05/31/16 11/14/21 History Simvastatin [Zocor] 20 mg PO HS 04/03/16 09/17/21 History amLODIPine BESYLATE [Norvasc] 10 mg PO DAILY 04/03/16 09/17/21 History Nitroglycerin Sl Tabs [Nitrostat] 0.4 mg SUBLINGUAL Q5M PRN 10/03/18 09/17/21 History lisinopriL [Zestril] 10 mg PO DAILY 10/03/18 09/17/21 History Acetaminophen Tab [Tylenol] 500 mg PO Q6HR PRN tab 10/09/18 09/17/21 Rx Albuterol Sulfate [Albuterol 1 puff PO RT-QID PRN 09/17/21 09/17/21 History Sulfate Hfa] Fluticasone Propion/Salmeterol 1 puff INHALATION RT-BID 09/17/21 09/17/21 History [Fluticasone-Salmeterol 250-50] lisinopriL [Zestril] 20 mg PO HS 09/17/21 09/17/21 History methocarbamoL [Methocarbamol] 750 mg PO QID PRN 09/17/21 09/17/21 History Allergies Allergy/AdvReac Type Severity Reaction Status Date / Time No Known Allergies Allergy Verified 09/17/21 08:35 Physical Exam Vitals: Vital Signs Temp Pulse Resp BP BP Pulse Ox 09/17/21 10:25 98.4 F 105 H 20 101/64 95 09/17/21 08:35 98.4 F 17 116/62 94 L 09/17/21 07:01 100.4 F H 112 H 20 128/77 95 09/17/21 05:00 103 H 18 123/72 95 09/17/21 03:00 84 18 134/76 95 09/17/21 02:06 99.2 F 97 18 123/63 95 Intake and Output 09/16/21 09/17/21 09/17/21 22:59 06:59 14:59 Other: Weight 122.47 kg Appearance, comfortable likely distress, the patient is currently on 4 L by nasal cannula, his breathing is nonlabored Head exam was generally normal. There was no scleral icterus or corneal arcus. Mucous membranes were moist. Neck was supple and without jugular venous distension, thyromegaly, or carotid bruits. Carotids were easily palpable bilaterally. There was no adenopathy. Lungs sounds are diminished along with some bibasilar crackles in lung bases bilaterally. Cardiac exam revealed the PMI to be normally situated and sized. The rhythm was regular and no extrasystoles were noted during several minutes of auscultation. The first and second heart sounds were normal and physiologic splitting of the second heart sound was noted. There were no murmurs, rubs, clicks, or gallops. Abdominal exam revealed normal bowel sounds. The abdomen was soft, non-tender, and without masses, organomegaly, or appreciable enlargement of the abdominal aorta. Extremities revealed diminished pulses and no cyanosis or clubbing. There may be potentially a total infection, the largest on the left. There is evidence of chronic venous stasis in the lower extremities bilaterally. The left great toe the medial aspect is erythematous and swollen. There is no evidence of any purulence in that location. Neurologically awake and alert and is no focaldeficits. Skin there is no open wounds or ulcerations this point in time. Results - Laboratory Findings CBC and BMP: 09/17/21 02:48 09/17/21 02:48 PT/INR, D-dimer PT 11.2 sec (9.0-12.0) 09/17/21 02:48 INR 1.1 (<1.2) 09/17/21 02:48 Abnormal lab findings: Abnormal Labs 09/17/21 09/17/21 09/17/21 02:48 02:48 02:48 Plt Count 137 L Lymphocytes # 0.6 L Sodium 133 L Carbon Dioxide 19 L BUN 67 H Creatinine 3.74 H Glucose 109 H C-Reactive Protein 6.4 H Urine Protein Trace H Urine Blood Small H Ur Leukocyte Esterase Large H Urine RBC 6 H Urine WBC 143 H Urine WBC Clumps Many H Urine Bacteria Many H Hyaline Casts 9 H Urine Mucus Rare H Coronavirus (PCR) 09/17/21 02:58 Plt Count Lymphocytes # Sodium Carbon Dioxide BUN Creatinine Glucose C-Reactive Protein Urine Protein Urine Blood Ur Leukocyte Esterase Urine RBC Urine WBC Urine WBC Clumps Urine Bacteria Hyaline Casts Urine Mucus Coronavirus (PCR) Detected A - Diagnostic Findings Chest x-ray: image reviewed Assessment and Plan Plan: 1 generalized weakness and falls with obvious decompensation in his health status in general. Possibilities include COVID 19 infection as the patient started having symptoms of weakness and fatigue and some low-grade fever and con gestion and symptoms of URI approximately a week ago. Same time, there may be a component of underlying urinary tract infection as the patient is known to have recurrent UTIs and sepsis with gram-negative bacteria. The patient is incontinent to urine. As such, this can be potentially combination of picture. Inflammatory markers including LDH is mildly elevated. 2 acute COVID 19 infection, questionable pneumonia 3 acute hypoxic respiratory failure, currently on 4 L of oxygen by nasal cannula and the patient is known to have underlying COPD, not maintained on home all. 4 urinary current urine tract infection/sepsis 5 history of coronary artery disease 6 history of CVA with some left-sided weakness back in 1992 7 history of chronic kidney disease with acute decompensation of kidney function, possibly secondary to intravascular volume of the patient's/dehydration 8 hypertension 9 hyperlipidemia 10 history of melanoma resected from the upper back Plan Hydrate this patient with normal saline today to 1 30 mL an hour Monitor renal function as the patient has developed an acute kidney injury on top of his chronic kidney failure Check urine cultures and blood cultures Check pro calcitonin level Continue with IV Rocephin As far as his COVID 19 infection, I am unable to exactly pinpoint the initial date of onset of symptoms and I will states probably a week. This could be potentially a mixed infection with bacteria rhinovirus. In any rate, it's reasonable to put the patient on Decadron for now and titrate his oxygen flow to maintain a saturation above 90%. I reviewed the chest x-ray and there is no clear indication of underlying pneumonia. Nevertheless, the patient decompensated and he has become more hypoxic and currently is on 4 L of oxygen by nasal cannula. We'll continue to follow. Check d-dimer as Put the patient on Lovenox 40 mg subcu for DVT prophylaxis.
[2021-09-17 14:20] LABS: Basophils % (A) 0 %; Eosinophils % (A) 0 %; HCT 49.6 % (39.0-53.0); HGB 16.5 gm/dL (13.0-17.5); Lymphocytes # (A) 0.5 k/uL (1.0-4.8); Lymphocytes % (A) 8 %; MCH 30.9 pg (25.0-35.0); MCHC 33.3 g/dL (31.0-37.0); MCV 92.8 fL (80.0-100.0); Mean Platelet Volume 10.4; Monocytes # (A) 0.3 k/uL (0-1.0); Monocytes % (A) 6 %; Neutrophils # (A) 4.9 k/uL (1.3-7.7); Neutrophils % (A) 85 %; Platelet Count 122 k/uL (150-450); RBC 5.35 m/uL (4.30-5.90); RDW 12.8 % (11.5-15.5); WBC 5.7 k/uL (3.8-10.6)
[2021-09-17 14:42] LABS: ALT 29 U/L (4-49); AST 58 U/L (17-59); African American GFR (CKD) 26 (>60 ml/min/1.73 sqM); Alkaline Phosphatase 126 U/L (38-126); Anion Gap 13 mmol/L; Blood Urea Nitrogen 56 mg/dL (9-20); C Reactive Protein 7.4 mg/dL (<1.0); Calcium 8.8 mg/dL (8.4-10.2); Carbon Dioxide 19 mmol/L (22-30); Chloride 105 mmol/L (98-107); Globulin 3.9 g/dL; Glucose 107 mg/dL (74-99); LDH 546 U/L (313-618); Non-African American GFR(CKD) 22 (>60 ml/min/1.73 sqM); Sodium 137 mmol/L (137-145); Total Bilirubin 0.7 mg/dL (0.2-1.3); Total Protein 7.9 g/dL (6.3-8.2)
[2021-09-17] MEDS: SYMBICORT 80-4.5 MCG INHALER INHALATION SCH (16:57)
[2021-09-17] MEDS: ALBUTEROL HFA INHALER INHALATION PRN ×2 (16:57→19:52)
[2021-09-17] MEDS ORDERED: lisinopriL 20 MG TAB PO SCH (21:00)
--- NOTE | 2021-09-17 22:22 | P.HPIM ---
History of Present Illness H&P Date: 09/17/21 Chief Complaint: Dyspnea 81-year-old male patient who was feeling weak at home and he was having falls and he contacted EMS and he checked himself to the hospital. He is known to me of taking care of him in the past because of a gram-negative UTI and sepsis back in 2018. He is also known to have multiple medical problems and comorbidities. He is known to have CVA with some left-sided weakness, hypertension, hyperlipidemia, CAD with previous [place], osteoarthritis and he has previous history of melanoma of his back that was resected. He also suffers from COPD. He start ed getting sick approximately 1 week ago. He felt progressively more weak. Note that he has chronic urinary incontinence. He has had previous history of UTIs. During this current admission, he was checked for COVID 19 and the return agent airport to be positive. He is reporting some increased shortness of breath and cough and congestion. Currently is on 4 L and at home he does not use oxygen. He states that he is not using any oxygen at home. He uses only albuterol at home. Apparently he was on 95% on room air when he arrived to the emergency and currently is on 4 L. I'm not sure if he desaturated going to there is no documentation of the patient desaturated in the emergency. In any rate, I r eviewed the chest x-ray. Review of Systems REVIEW OF SYSTEMS: CONSTITUTIONAL: No fever, no malaise, no fatigue. HEENT: No recent visual problems or hearing problems. Denied any sore throat. CARDIOVASCULAR: No chest pain, orthopnea, PND, no palpitations, no syncope. PULMONARY: No shortness of breath, no cough, no hemoptysis. GASTROINTESTINAL: No diarrhea, no nausea, no vomiting, no abdominal pain. NEUROLOGICAL: No headaches, no weakness, no numbness. HEMATOLOGICAL: Denies any bleeding or petechiae. GENITOURINARY: Denies any burning micturition, frequency, or urgency. MUSCULOSKELETAL/RHEUMATOLOGICAL: Denies any joint pain, swelling, or any muscle pain. ENDOCRINE: Denies any polyuria or polydipsia. The rest of the 14-point review of systems is negative. Past Medical History Past Medical History: Asthma, CVA/TIA, Hyperlipidemia, Hypertension, Myocardial Infarction (MO), Osteoarthritis (OA) Additional Past Medical History / Comment(s): CVA 1992-left side weakness- uses mostly the wheelchair but able to use cane/walker as well, pastwound on lower left leg- treated at [facility] wound center,past venous leg ulcers melanoma back and basal skin cancer L shoulder. Last Myocardial Infarction Date:: 2008 History of Any Multi-Drug Resistant Organisms: MRSA Date of last positivie culture/infection: 10/04/18 MDRO Source:: Left First Toe Past Surgical History: Appendectomy, Hernia Repair, Orthopedic Surgery Additional Past Surgical History / Comment(s): 05/01/16 Wide exicision melanoma back, excision lesion L shoulder basal cancer. Other surgical hx: DEBRIDEMENT OF LEFT CALF/LEG, umbilical hernia repair, lumbar spine surgery. Past Anesthesia/Blood Transfusion Reactions: No Reported Reaction, Motion Sickness Past Psychological History: No Psychological Hx Reported Smoking Status: Former smoker Past Alcohol Use History: Occasional Past Drug Use History: None Reported - Past Family History Mother History Unknown: Yes Father History Unknown: Yes Medications and Allergies Home Medications Medication Instructions Recorded Confirmed Type Isosorbide Dinitrate [Isordil] 40 mg PO BID 04/03/16 09/17/21 History Simvastatin [Zocor] 20 mg PO HS 04/03/16 09/17/21 History amLODIPine BESYLATE [Norvasc] 10 mg PO DAILY 04/03/16 09/17/21 History Nitroglycerin Sl Tabs [Nitrostat] 0.4 mg SUBLINGUAL Q5M PRN 10/03/18 09/17/21 History lisinopriL [Zestril] 10 mg PO DAILY 10/03/18 09/17/21 History Acetaminophen Tab [Tylenol] 500 mg PO Q6HR PRN tab 10/09/18 09/17/21 Rx Albuterol Sulfate [Albuterol 1 puff PO RT-QID PRN 09/17/21 09/17/21 History Sulfate Hfa] Fluticasone Propion/Salmeterol 1 puff INHALATION RT-BID 09/17/21 09/17/21 H istory [Fluticasone-Salmeterol 250-50] lisinopriL [Zestril] 20 mg PO HS 09/17/21 09/17/21 History methocarbamoL [Methocarbamol] 750 mg PO QID PRN 09/17/21 09/17/21 History Allergies Allergy/AdvReac Type Severity Reaction Status Date / Time No Known Allergies Allergy Verified 09/17/21 08:35 Physical Exam Vitals: Vital Signs Temp Pulse Resp BP BP Pulse Ox 09/17/21 08:35 98.4 F 17 116/62 94 L 09/17/21 07:01 100.4 F H 112 H 20 128/77 95 09/17/21 05:00 103 H 18 123/72 95 09/17/21 03:00 84 18 134/76 95 09/17/21 02:06 99.2 F 97 18 123/63 95 Intake and Output 09/16/21 09/17/21 09/17/21 22:59 06:59 14:59 Other: Weight 122.47 kg - Constitutional General appearance: Present: average body habitus, cooperative, no acute distress - EENT Eyes: Present: anicteric sclerae, EOMI, PERRLA, normal appearance ENT: Present: hearing grossly normal, normal oropharynx Ears: bilateral: normal - Neck Neck: Present: normal ROM. Absent: lymphadenopathy, rigidity, thyromegaly Carotids: negative: bruit present Thyroid: bilateral: normal size, negative: enlarged, nodule - Respiratory Respiratory: bilateral: CTA, negative: rales, rhonchi, wheezing - Cardiovascular Rhythm: regular Heart sounds: normal: S1, S2 Abnormal Heart Sounds: Absent: systolic murmur, diastolic murmur - Gastrointestinal General gastrointestinal: Present: normal bowel sounds, soft. Absent: distended, organomegaly, tenderness - Genitourinary Genitourinary Comment(s): deferred - Integumentary Integumentary: Present: normal turgor. Absent: jaundiced, rash, ulcer - Neurologic Neurologic: Present: CNII-XII intact. Absent: focal deficits - Musculoskeletal Musculoskeletal: Present: gait normal, strength equal bilaterally - Psychiatric Psychiatric: Present: A&O x's 3, appropriate affect, intact judgment & insight Results CBC & Chem 7: 09/17/21 13:49 09/17/21 13:49 Labs: Abnormal Lab Results - Last 24 Hours (Table) 09/17/21 09/17/21 09/17/21 Range/Units 02:48 02:48 02:48 Plt Count 137 L (150-450) k/uL Lymphocytes # 0.6 L (1.0-4.8) k/uL Sodium 133 L (137-145) mmol/L Carbon Dioxide 19 L (22-30) mmol/L BUN 67 H (9-20) mg/dL Creatinine 3.74 H (0.66-1.25) mg/dL Glucose 109 H (74-99) mg/dL C-Reactive Protein 6.4 H (<1.0) mg/dL Urine Protein Trace H (Negative) Urine Blood Small H (Negative) Ur Leukocyte Esterase Large H (Negative) Urine RBC 6 H (0-5) /hpf Urine WBC 143 H (0-5) /hpf Urine WBC Clumps Many H (None) /hpf Urine Bacteria Many H (None) /hpf Hyaline Casts 9 H (0-2) /lpf Urine Mucus Rare H (None) /hpf Coronavirus (PCR) (Not Detectd) 09/17/21 Range/Units 02:58 Plt Count (150-450) k/uL Lymphocytes # (1.0-4.8) k/uL Sodium (137-145) mmol/L Carbon Dioxide (22-30) mmol/L BUN (9-20) mg/dL Creatinine (0.66-1.25) mg/dL Glucose (74-99) mg/dL C-Reactive Protein (<1.0) mg/dL Urine Protein (Negative) Urine Blood (Negative) Ur Leukocyte Esterase (Negative) Urine RBC (0-5) /hpf Urine WBC (0-5) /hpf Urine WBC Clumps (None) /hpf Urine Bacteria (None) /hpf Hyaline Casts (0-2) /lpf Urine Mucus (None) /hpf Coronavirus (PCR) Detected A (Not Detectd) Assessment and Plan Assessment: 1. Acute COVID-19 viral infection/ possible pneumonia - Patient is currently on 4 L of O2 per nasal cannula; we will start patient on subcu Lovenox, Decadron 6 mg IV daily and COVID-19) cocktail - Pulmonary is consulted for further recommendations - We will order inflammatory markers and trend periodically - Patient is currently on IV Rocephin 2. Acute hypoxic respiratory failure; related to COVID-19 infection; patient is currently on O2 at 4 L per nasal cannula maintaining O2 saturation above 88% 3. Acute UTI; patient is placed on Rocephin 1 g IV daily; monitor urine and blood cultures 4. Hypertension; amlodipine 10 mg daily; continue with home dose of lisinopril 5. Hyperlipidemia; Lipitor 20 minute grams by mouth daily at bedtime 6. History of CVA with left-sided weakness; currently not on aspirin; remains on statin therapy 7. Coronary artery disease; stable DVT prophylaxis; SCDs/subcu Lovenox CODE STATUS; full code
[2021-09-18] MEDS: ASCORBIC ACID 500 MG TAB PO SCH ×3 (01:27→21:05)
[2021-09-18] MEDS: ATORVASTATIN 20 MG TAB PO SCH ×2 (01:27→21:05)
[2021-09-18] MEDS: ISOSORBIDE DINITRATE 20 MG TAB PO SCH ×3 (01:28→21:05)
[2021-09-18] MEDS: SODIUM CHLORIDE 0.9% 1,000 ML IV SCH ×4 (01:28→21:05)
[2021-09-18] MEDS: ENOXAPARIN 40 MG/0.4 ML SYRINGE SQ SCH (07:59)
[2021-09-18] MEDS: CHOLECALCIFEROL 25 MCG (1000 IU) TABLET PO SCH (08:00)
[2021-09-18] MEDS: ZINC SULFATE 220 MG CAP PO SCH (08:00)
[2021-09-18] MEDS: DEXAMETHASONE SOD PHOSPHATE 10 MG/ML 1 ML VIAL IVP SCH (08:00)
[2021-09-18] MEDS: SYMBICORT 80-4.5 MCG INHALER INHALATION SCH ×2 (08:25→21:57)
[2021-09-18 08:55] LABS: ALT 31 U/L (4-49); African American GFR (CKD) 35 (>60 ml/min/1.73 sqM); Albumin/Globulin Ratio 0.9; Anion Gap 11 mmol/L; Blood Urea Nitrogen 53 mg/dL (9-20); Calcium 8.4 mg/dL (8.4-10.2); Carbon Dioxide 19 mmol/L (22-30); Chloride 108 mmol/L (98-107); Globulin 3.9 g/dL; Glucose 100 mg/dL (74-99); Non-African American GFR(CKD) 30 (>60 ml/min/1.73 sqM); Sodium 138 mmol/L (137-145); Total Bilirubin 0.7 mg/dL (0.2-1.3)
[2021-09-18] MEDS ORDERED: lisinopriL 10 MG TAB PO SCH (09:00)
[2021-09-18 09:03] LABS: AST 71 U/L (17-59); Albumin 3.6 g/dL (3.5-5.0); Alkaline Phosphatase 102 U/L (38-126); Potassium 5.6 mmol/L (3.5-5.1); Total Protein 7.5 g/dL (6.3-8.2)
[2021-09-18] MEDS: amLODIPine 10 MG TAB PO SCH (10:50)
[2021-09-18 11:03] LABS: Basophils # (A) 0.01 X 10*3/uL (0.00-0.10); Basophils % (A) 0.2 %; Eosinophils # (A) 0 X 10*3/uL (0.04-0.35); Eosinophils % (A) 0 %; HCT 46.5 % (39.6-50.0); HGB 15.7 g/dL (13.0-17.0); Lymphocytes # (A) 0.77 X 10*3/uL (0.90-5.00); MCH 30.8 pg (27.0-32.0); MCHC 33.8 g/dL (32.0-37.0); MCV 91.2 fL (80.0-97.0); Monocytes # (A) 0.62 X 10*3/uL (0.20-1.00); Monocytes % (A) 13.7 %; Neutrophils # (A) 3.09 X 10*3/uL (1.80-7.70); Neutrophils % (A) 68.4 %; Platelet Count 126 X 10*3/uL (140-440); WBC 4.52 X 10*3/uL (4.50-10.00)
[2021-09-18] MEDS ORDERED: SODIUM POLYSTYRENE SULFONATE 15 GM/60 ML BOTTLE PO STA (13:25)
--- NOTE | 2021-09-18 14:15 | XR ---
EXAMINATION TYPE: XR chest 1V portable DATE OF EXAM: 09/18/2021 COMPARISON: 09/17/2021 INDICATION: Short of breath TECHNIQUE: Single frontal view of the chest is obtained. Patient is rotated to the left FINDINGS: The heart size is normal. The pulmonary vasculature is normal. The lungs are clear. IMPRESSION: 1. No acute pulmonary process.
--- NOTE | 2021-09-18 14:31 | CT ---
EXAMINATION TYPE: CT chest wo con DATE OF EXAM: 09/18/2021 COMPARISON: HISTORY: COVID, pneumonia CT DLP: 736.9 mGycm. Automated Exposure Control for Dose Reduction was Utilized. TECHNIQUE: CT scan of the thorax is performed without IV contrast. FINDINGS: LUNGS: Subsegmental area of infiltrate at the left lower lobe. Subsegmental changes to lesser extent the right lower lobe. Patchy groundglass changes left upper lobe axial image 28.. There is no pleur al effusion or pneumothorax seen. The tracheobronchial tree is patent. There is a 3 mm nodule in the superior segment of the right lower lobe on axial image 28 likely benign. MEDIASTINUM: Lack of IV contrast is noted to limit evaluation for mediastinal and especially hilar ad enopathy. There are no definitive greater than 1 cm hilar or mediastinal lymph nodes. No cardiomega ly or pericardial effusion is seen. Atherosclerotic changes aorta with coronary artery calcification. OTHER: Hypertrophic and degenerative change of the spine with chronic appearing wedge fractures or en dplate fractures at multiple levels of the thoracic spine. Indeterminate hypodensities within the kid neys only partially included correlate with ultrasound as clinically warranted.. IMPRESSION: 1. Multifocal small areas of infiltrate correlate for pneumonia. 2. Dense coronary artery calcification correlate clinically. 3. 3 mm right lower lobe pulmonary nodule likely benign
--- NOTE | 2021-09-18 15:57 | PN ---
PROGRESS NOTE DATE OF SERVICE: 09/18/2021. This 81-year-old gentleman who was admitted with acute COVID-19 infection also had acute hypoxic respiratory failure and some hypotension. Patient is being closely monitored. Patient has severe acute renal failure with acute tubular necrosis and acute prerenal failure, present on admission. On admission, creatinine was found to be 3.74, which has gradually improved. Baseline creatinine was around 1.3, which improved normally in 2018 also. The potassium was elevated at 5.6. Multiple consultants are following the patient closely at this time. The patient is on IV fluids at 130 mL/hour. Blood pressure is currently at 114/89, pulse ox 98.4. The patient also had a chest x-ray which was reviewed personally. It showed increased bilateral increased bronchovascular markings. Past medical history reviewed. REVIEW OF SYSTEMS: CARDIOVASCULAR SYSTEM: No angina. RESPIRATION: As mentioned earlier. GI: As mentioned earlier. : As mentioned earlier. CURRENT MEDICATIONS: Reviewed. They include Tylenol, Ventolin, vitamin C, Lipitor, Symbicort, Rocephin IV, Decadron, Isordil, Robaxin, morphine sulfate, Narcan, Zofran, Orazinc. Doses are reviewed. PHYSICAL EXAMINATION: Patient is alert, oriented x3. Pulse 80, blood pressure 114/69, respirations 16, temperature 98.4. The blood pressure earlier was 93/58. Pulse ox 92% on 3 L. HEENT: Conjunctivae normal. NECK: No jugular venous distention. CARDIOVASCULAR: S1, S2 muffled. RESPIRATION: Breath sounds diminished at the bases. A few scattered rhonchi and crackles. ABDOMEN: Soft, obese, non-tender. LEGS: No edema. No swelling. NERVOUS SYSTEM: No focal deficit. LABS: CBC noted. Platelets 126. Eosinophils are zero. Sodium 138, potassium 5.6. CO2 is 19. Creatinine is 2.01 and AST is 71. Ferritin is 713. CRP is 7.4, procalcitonin 0.21. D- dimer is 0.45. UA noted, WBC. COVID-19 was positive. ASSESSMENT: 1. Acute COVID-19 infection with possible acute bilateral component of interstitial pneumonia with acute hypoxic respiratory failure, on supplemental oxygen and Decadron. 2. Possible acute urinary tract infection, present on admission. 3. Hypoxia. Rule out sepsis. 4. Hypertension. 5. Hyperlipidemia. 6. History of cerebrovascular accident with left-sided weakness. 7. Coronary artery disease. 8. Elevated procalcitonin. 9. Elevated AST. 10.Hyperkalemia secondary to renal failure. 11.Acute renal failure, acute tubular necrosis. 12.History of myocardial infarction. 13.History of appendectomy. 14.History of hernia repair. 15.History of history of MRSA. 16.FULL CODE. RECOMMENDATIONS AND DISCUSSION: In this 81-year-old gentleman who presented with multiple complex medical issues, we will monitor the patient closely, continue the current medications, continue symptomatic treatment. The patient is on IV antibiotics at this time. Pulmonology and Nephrology have been consulted. I would also recommend infectious disease evaluation. Continue with DVT prophylaxis. I would also recommend a CT scan of the chest with no contrast. Repeat labs. Dose of Kayexalate. Monitor blood sugars closely. Prognosis guarded because of multiple complex medical issues. Further recommendations to follow. MMODL / IJN: [id number] /
[2021-09-18] MEDS: ALBUTEROL HFA INHALER INHALATION PRN ×2 (16:46→21:57)
--- NOTE | 2021-09-18 18:45 | P.PN ---
Subjective Progress Note Date: 09/18/21 Principal diagnosis: Acute COVID-19 pneumonia This is an 81-year-old male patient who was feeling weak at home and he was having falls and he contacted EMS and he checked himself to the hospital. He is known to me of taking care of him in the past because of a gram-negative UTI and sepsis back in 2018. He is also known to have multiple medical problems and comorbidities. He is known to have CVA with some left-sided weakness, hypertension, hyperlipidemia, CAD with previous [place], osteoarthritis and he has previous history of melanoma of his back that was resected. He also suffers from COPD. He started getting sick approximately 1 week ago. He felt progressively more weak. Note that he has chronic urinary incontinence. He has had previous history of UTIs. During this current admission, he was checked for COVID 19 and the rim turning machine operator to be positive. He is reporting some increased shortness of breath and cough and congestion. Currently is on 4 L and at home he does not use oxygen. He states that he is not using any oxygen at home. He uses only albuterol at home. Apparently he was on 95% on room air when he arrived to the emergency and currently is on 4 L. I'm not sure if he desaturated going to there is no documentation of the patient desaturated in the emergency. In any rate, I reviewed the chest x-ray. There is no acute abnormalities. On examination he has some crackles in the lung bases bilaterally. At the same time, his UA was abnormal and he suspected to have any cardiogenic infection. He was started on Rocephin. His current white cell count is at 7.4 with a hemoglobin of 15.7, he has lymphopenia, serum bicarb is at 19 with a BUN of 67 and a creatinine of 3.7 and his LDH level is 500, troponins at 0.01, UA is abnormal with many WBCs. Troponin is at 0.019. On 09/18/2021 patient seen in follow-up on medical surgical floor, started 3 L oxygen with pulse ox 93%, in no acute distress. No fever or chills, vital signs have been stable, no chest discomfort. No acute events overnight. He remains on Rocephin for possibility of urinary tract infection, urine culture showing gram-negative bacilli, awaiting final culture, no fever or chills. Chest x-ray shows no acute pulmonary process. Today's labs have been reviewed, showing w jennifer blood cell count 4.5, hemoglobin 15.7, sodium is 138, potassium is 5.6, chloride is 108, CO2 is 19, B1 is 53 chronic creatinine is 2.01, renal profile is improving, troponin is negative at 0.020, pro calcitonin level is at 0.21. Patient isn't daily dose of Decadron 6 mg, and prophylactic Lovenox 40 mg daily. He remains on 0.9 normal saline at 80 per hour for IV hydration. Objective - Vital Signs Vital signs: Vital Signs Temp 98.1 F 09/18/21 18:28 Pulse 86 09/18/21 18:28 Resp 15 09/18/21 18:28 BP 120/62 09/18/21 18:28 Pulse Ox 95 09/18/21 18:28 Intake & Output 09/17/21 09/18/21 09/18/21 18:59 06:59 18:59 Output Total 600 Balance -600 Weight 122.47 kg Output: Urine 600 Other: Voiding Method Indwelling Catheter # Voids 250 - Exam GENERAL EXAM: Alert, very pleasant, 81-year-old white male, on 3 L of oxygen the pulse ox of 95% comfortable in no apparent distress. HEAD: Normocephalic/atraumatic. EYES: Normal reaction of pupils, equal size. Conjunctiva pink, sclera white. NOSE: Clear with pink turbinates. THROAT: No erythema or exudates. NECK: No masses, no JVD, no thyroid enlargement, no adenopathy. CHEST: No chest wall deformity. Symmetrical expansion. LUNGS: Equal air entry with no crackles, diminished breath sounds at the bases. CVS: Regular rate and rhythm, normal S1 and S2, no gallops, no murmurs, no rubs ABDOMEN: Soft, nontender. No hepatosplenomegaly, normal bowel sounds, no guarding or rigidity. EXTREMITIES: No clubbing, no edema, no cyanosis, 2+ pulses and upper and lower extremities. MUSCULOSKELETAL: Muscle strength and tone normal. SPINE: No scoliosis or deformity SKIN: No rashes CENTRAL NERVOUS SYSTEM: Alert and oriented -3. No focal deficits, tone is normal in all 4 extremities. PSYCHIATRIC: Alert and oriented -3. Appropriate affect. Intact judgment and insight. - Labs CBC & Chem 7: 09/18/21 07:32 09/18/21 07:32 Labs: Abnormal Lab Results - Last 24 Hours (Table) 09/17/21 09/17/21 09/18/21 Range/Units 13:49 13:49 07:32 Plt Count 126 L (140-440) X 10*3/uL Lymphocytes # 0.77 L (0.90-5.00) X 10*3/uL Eosinophils # 0 L (0.04-0.35) X 10*3/uL Potassium (3.5-5.1) mmol/L Chloride (98-107) mmol/L Carbon Dioxide (22-30) mmol/L BUN (9-20) mg/dL Creatinine (0.66-1.25) mg/dL Glucose (74-99) mg/dL Ferritin 713.0 H (22.0-322.0) ng/mL AST (17-59) U/L Procalcitonin 0.21 H (0.02-0.09) ng/mL 09/18/21 Range/Units 07:32 Plt Count (140-440) X 10*3/uL Lymphocytes # (0.90-5.00) X 10*3/uL Eosinophils # (0.04-0.35) X 10*3/uL Potassium 5.6 H (3.5-5.1) mmol/L Chloride 108 H (98-107) mmol/L Carbon Dioxide 19 L (22-30) mmol/L BUN 53 H (9-20) mg/dL Creatinine 2.01 H (0.66-1.25) mg/dL Glucose 100 H (74-99) mg/dL Ferritin (22.0-322.0) ng/mL AST 71 H (17-59) U/L Procalcitonin (0.02-0.09) ng/mL Microbiology - Last 24 Hours (Table) 09/17/21 02:48 Urine Culture - Preliminary Urine,Voided Gram Neg Bacilli Assessment and Plan Plan: Assessment: #1. Acute COVID-19 pneumonia, with acute hypoxic respiratory failure, currently on Decadron 6 blood gram daily, Lovenox at prophylactic dose #2. Acute urinary tract infection with urine culture showing gram-negative bacilli, on Rocephin #3. Acute kidney injury, improving #4. Weakness related to the above #5. History of CVA with residual left-sided weakness #6. Hypertension #7. Hyperlipidemia #8. CAD with previous [place] #9. Osteoarthritis #10. History of melanoma with resection #11. COPD #12. History of chronic kidney disease, with acute kidney injury related to intravascular volume depletion Plan: Continue IV fluids at 80 ML per hour Renal function is improving Chest x-ray and CT chest have been reviewed Continue current medical treatment continued Decadron Continue current dose Lovenox We'll continue to follow his clinical course Continue on Rocephin for urinary tract infection, urine culture showing gram- negative bacilli will await final cultures I performed a history & physical examination of the patient and discussed their management with my nurse practitioner, Jacquelyn Lugo. I reviewed the nurse practitioner's note and agree with the documented findings and plan of care. Lung sounds are positive for diminished breath sounds throughout the lung chavez. The findings and the impression was discussed with the patient. I attest to the documentation by the nurse practitioner. Time with Patient: Less than 30
--- NOTE | 2021-09-18 20:06 | CONS ---
CONSULTATION REASON FOR CONSULTATION: Renal failure. HISTORY OF PRESENT ILLNESS: Patient is an 81-year-old male who was admitted to the hospital with complaints of shortness of breath, increased weakness and falls. He was found to have COVID pneumonia. Patient's serum creatinine was 3.74 on initial admission. It is down to 2.01 now. Previous creatinine in 2018 has been 1.1 to 1.3 mg/dL. It looks like there was an episode of acute kidney injury with serum creatinine 1.7 in October of 2019. Blood pressure has been on the lower side with systolic 93 to 95 mmHg. Potassium was noted to have increased to 5.6 today. Patient is maintained on ADOLFO inhibitors. He is currently maintained on IV fluids at 130 mL/hour. PAST MEDICAL HISTORY: Asthma, CVA, TIA, hyperlipidemia, hypertension, [place], osteoarthritis. PAST SURGICAL HISTORY: Appendectomy, hernia repair, orthopedic surgery, excision of melanoma on the back and excision of basal cell cancer on left shoulder, debridement of left calf and leg, umbilical hernia repair, lumbar spine surgery. SOCIAL HISTORY: Negative for smoking, drug abuse or alcohol abuse. MEDICATIONS: Medications prior to admission included Isordil, Zocor, Norvasc Nitrostat, Zestril, Tylenol, methocarbamol. ALLERGIES: NONE. REVIEW OF SYSTEMS: As per HPI. Other systems negative. PHYSICAL EXAMINATION: Patient is comfortable, awake, not in any acute distress. Blood pressure 114/69, heart rate 80 per minute. Patient is afebrile. Examination of lower extremities shows no evidence of edema. STAFF SERVICES MANAGER exam is grossly intact. Lungs and heart are not examined. LABS: Sodium 130, potassium 5.6, chloride 108. CO2 is 19, BUN 53, creatinine 2.01. ASSESSMENT: 1. Acute kidney injury, prerenal, currently improved with IV hydration. Also component of hypotension and hypoperfusion. I will hold off on the ADOLFO inhibitors, as patient's potassium has increased to 5.6 and his blood pressure has been low. We will repeat labs in a.m. Avoid high potassium intake. 2. COVID pneumonia, maintained on steroids. 3. Pyuria with WBCs of 143 on UA, maintained on ceftriaxone. Urine culture is pending. 4. Chronic kidney disease with baseline creatinine 1.1 to 1.3 mg/dL as of October of 2018, mostly secondary to nephrosclerosis. PLAN: Discontinue ADOLFO inhibitors. Continue with IV fluids. Repeat labs in a.m. Decrease IV fluids to 80 mL/hour. MMODL / IJN: [id number] /
[2021-09-19] MEDS: ENOXAPARIN 40 MG/0.4 ML SYRINGE SQ SCH (07:49)
[2021-09-19] MEDS: DEXAMETHASONE SOD PHOSPHATE 10 MG/ML 1 ML VIAL IVP SCH (07:50)
[2021-09-19] MEDS: CHOLECALCIFEROL 25 MCG (1000 IU) TABLET PO SCH (07:50)
[2021-09-19] MEDS: ASCORBIC ACID 500 MG TAB PO SCH ×2 (07:50→20:10)
[2021-09-19] MEDS: ZINC SULFATE 220 MG CAP PO SCH (07:50)
[2021-09-19] MEDS: ISOSORBIDE DINITRATE 20 MG TAB PO SCH ×2 (07:50→20:10)
[2021-09-19] MEDS: SYMBICORT 80-4.5 MCG INHALER INHALATION SCH ×2 (08:12→19:24)
[2021-09-19] MEDS: ALBUTEROL HFA INHALER INHALATION PRN ×2 (08:12→19:23)
--- NOTE | 2021-09-19 08:32 | ECHOF ---
Referral Reason:hypotension MEASUREMENTS -------- HEIGHT: 182.9 cm WEIGHT: 122.5 kg BP: 114/69 IVSd: 0.9 cm (0.6 - 1.1) LVIDd: 2.8 cm (3.9 - 5.3) LVPWd: 1.3 cm (0.6 - 1.1) IVSs: 1.1 cm LVIDs: 1.1 cm LVPWs: 1.2 cm MV E Seth: 0.62 m/s MV DecT: 241 ms MV A Seth: 0.79 m/s MV E/A Ratio: 0.78 FINDINGS -------- Sinus rhythm. This was a technically difficult study with suboptimal views. The left ventricular size is normal. Left ventricular wall thickness is normal. Overall left vent ricular systolic function is normal with, an EF between 55 - 60 %. The right ventricle is normal in size. The left atrium was not well visualized. The right atrium was not well visualized. 5.0mg of Lumason was utilized for enhancement of images The aortic valve was not well visualized. The aortic valve is trileaflet and appears structurally n ormal. There is no evidence of aortic regurgitation. There is no evidence of aortic stenosis. The mitral valve was not well visualized. There is trace to mild mitral regurgitation. Mild tricuspid regurgitation present. There is no evidence of pulmonary hypertension. The right v entricular systolic pressure, as measured by Doppler, is {RVSP}. The pulmonic valve was not well visualized. IVC Not well visulized. There is no pericardial effusion. CONCLUSIONS -------- 1. The left ventricular size is normal. 2. Left ventricular wall thickness is normal. 3. Overall left ventricular systolic function is normal with, an EF between 55 - 60 %. 4. There is trace to mild mitral regurgitation. 5. Mild tricuspid regurgitation present. MEDICAL CODING MANAGER: Emy Gregorio RDCS
[2021-09-19 09:07] LABS: Basophils # (A) 0.01 X 10*3/uL (0.00-0.10); Basophils % (A) 0.2 %; Eosinophils # (A) 0 X 10*3/uL (0.04-0.35); Eosinophils % (A) 0 %; HCT 44.9 % (39.6-50.0); HGB 14.9 g/dL (13.0-17.0); Lymphocytes # (A) 0.82 X 10*3/uL (0.90-5.00); Lymphocytes % (A) 14.1 %; MCH 30.5 pg (27.0-32.0); MCHC 33.2 g/dL (32.0-37.0); MCV 91.8 fL (80.0-97.0); Mean Platelet Volume 12.1 fL (9.5-12.2); Monocytes # (A) 0.68 X 10*3/uL (0.20-1.00); Monocytes % (A) 11.7 %; Neutrophils # (A) 4.27 X 10*3/uL (1.80-7.70); Neutrophils % (A) 73.5 %; Platelet Count 114 X 10*3/uL (140-440); RBC 4.89 X 10*6/uL (4.40-5.60); RDW 12.9 % (11.5-14.5); WBC 5.81 X 10*3/uL (4.50-10.00)
--- NOTE | 2021-09-19 12:41 | P.PN ---
Subjective Progress Note Date: 09/19/21 Principal diagnosis: Acute COVID-19 pneumonia This is an 81-year-old male patient who was feeling weak at home and he was having falls and he contacted EMS and he checked himself to the hospital. He is known to me of taking care of him in the past because of a gram-negative UTI and sepsis back in 2018. He is also known to have multiple medical problems and comorbidities. He is known to have CVA with some left-sided weakness, hypertension, hyperlipidemia, CAD with previous VT, osteoarthritis and he has previous history of melanoma of his back that was resected. He also suffers from COPD. He started getting sick approximately 1 week ago. He felt progressively more weak. Note that he has chronic urinary incontinence. He has had previous history of UTIs. During this current admission, he was checked for COVID 19 and the returned case inspector to be positive. He is reporting some increased shortness of breath and cough and congestion. Currently is on 4 L and at home he does not use oxygen. He states that he is not using any oxygen at home. He uses only albuterol at home. Apparently he was on 95% on room air when he arrived to the emergency and currently is on 4 L. I'm not sure if he desaturated going to there is no documentation of the patient desaturated in the emergency. In any rate, I reviewed the chest x-ray. There is no acute abnormalities. On examination he has some crackles in the lung bases bilaterally. At the same time, his UA was abnormal and he suspected to have any cardiogenic infection. He was started on Rocephin. His current white cell count is at 7.4 with a hemoglobin of 15.7, he has lymphopenia, serum bicarb is at 19 with a BUN of 67 and a creatinine of 3.7 and his LDH level is 500, troponins at 0.01, UA is abnormal with many WBCs. Troponin is at 0.019. On 09/18/2021 patient seen in follow-up on medical surgical floor, started 3 L oxygen with pulse ox 93%, in no acute distress. No fever or chills, vital signs have been stable, no chest discomfort. No acute events overnight. He remains on Rocephin for possibility of urinary tract infection, urine culture showing gram-negative bacilli, awaiting final culture, no fever or chills. Chest x-ray shows no acute pulmonary process. Today's labs have been reviewed, showing w jennifer blood cell count 4.5, hemoglobin 15.7, sodium is 138, potassium is 5.6, chloride is 108, CO2 is 19, B1 is 53 chronic creatinine is 2.01, renal profile is improving, troponin is negative at 0.020, pro calcitonin level is at 0.21. Patient isn't daily dose of Decadron 6 mg, and prophylactic Lovenox 40 mg daily. He remains on 0.9 normal saline at 80 per hour for IV hydration. On 09/19/2001 patient seen in follow-up on medical surgical floor. He is resting in bed, currently on 3 L of oxygen pulse ox is 95%, she is doing better, breathing easier, lung sounds reveal minimal rales at bilateral bases, no chest discomfort, mild cough, afebrile, hemodynamically he stable, on Decadron 6 mg daily, he is on prophylactic dose Lovenox, he is on Rocephin for urine checked infection and urine culture showed E. coli. His labs have been reviewed, his white blood cell, is 5.8, hemoglobin is 14.9, BMP is still pending, inflammatory markers are still pending for today. His had no acute events overnight, overall he is weak, but in no acute distress. Objective - Vital Signs Vital signs: Vital Signs Temp 98.2 F 09/19/21 10:00 Pulse 89 09/19/21 10:00 Resp 20 09/19/21 10:00 BP 108/69 09/19/21 10:00 Pulse Ox 94 L 09/19/21 10:00 Intake & Output 09/18/21 09/19/21 09/19/21 18:59 06:59 18:59 Output Total 600 1100 Balance -600 -1100 Output: Urine 600 1100 Other: Voiding Method Urinal - Exam GENERAL EXAM: Alert, very pleasant, 81-year-old white male, on 3 L of oxygen the pulse ox of 95% comfortable in no apparent distress. HEAD: Normocephalic/atraumatic. EYES: Normal reaction of pupils, equal size. Conjunctiva pink, sclera white. NOSE: Clear with pink turbinates. THROAT: No erythema or exudates. NECK: No masses, no JVD, no thyroid enlargement, no adenopathy. CHEST: No chest wall deformity. Symmetrical expansion. LUNGS: Equal air entry with no crackles, diminished breath sounds at the bases. CVS: Regular rate and rhythm, normal S1 and S2, no gallops, no murmurs, no rubs ABDOMEN: Soft, nontender. No hepatosplenomegaly, normal bowel sounds, no guarding or rigidity. EXTREMITIES: No clubbing, no edema, no cyanosis, 2+ pulses and upper and lower extremities. MUSCULOSKELETAL: Muscle strength and tone normal. SPINE: No scoliosis or deformity SKIN: No rashes CENTRAL NERVOUS SYSTEM: Alert and oriented -3. No focal deficits, tone is normal in all 4 extremities. PSYCHIATRIC: Alert and oriented -3. Appropriate affect. Intact judgment and insight. - Labs CBC & Chem 7: 09/19/21 05:57 09/18/21 07:32 Labs: Abnormal Lab Results - Last 24 Hours (Table) 09/19/21 Range/Units 05:57 Plt Count 114 L (140-440) X 10*3/uL Lymphocytes # 0.82 L (0.90-5.00) X 10*3/uL Eosinophils # 0 L (0.04-0.35) X 10*3/uL Microbiology - Last 24 Hours (Table) 09/17/21 02:48 Urine Culture - Final Urine,Voided Escherichia coli Assessment and Plan Plan: Assessment: #1. Acute COVID-19 pneumonia, with acute hypoxic respiratory failure, currently on Decadron 6 blood gram daily, Lovenox at prophylactic dose #2. Acute urinary tract infection with urine culture showing gram-negative bacilli, on Rocephin #3. Acute kidney injury, improving #4. Weakness related to the above #5. History of CVA with residual left-sided weakness #6. Hypertension #7. Hyperlipidemia #8. CAD with previous VT #9. Osteoarthritis #10. History of melanoma with resection #11. COPD #12. History of chronic kidney disease, with acute kidney injury related to intravascular volume depletion Plan: Continue IV fluids at 80 ML per hour Awaiting labs for today Continue current dose Decadron Provide incentive spirometer Encouraged the patient to sit up in a chair No worsening dyspnea But generally patient is weak Continue Rocephin for urinary tract infection and urine culture was positive for E. coli Awaiting follow-up inflammatory markers If remains stable and able to ambulate and tolerate activity, he may be considered for discharge home in the next 24-48 hours provided his been cleared by medicine I performed a history & physical examination of the patient and discussed their management with my nurse practitioner, Jacquelyn Lugo. I reviewed the nurse practitioner's note and agree with the documented findings and plan of care. Lung sounds are positive for diminished breath sounds throughout the lung chavez. The findings and the impression was discussed with the patient. I attest to the documentation by the nurse practitioner. Time with Patient: Less than 30
--- NOTE | 2021-09-19 14:36 | PN ---
PROGRESS NOTE Patient is seen for followup for acute kidney injury. His renal function has been improving. Labs are pending from today. Patient is currently maintained on saline at 80 mL/hour. He is being treated for COVID pneumonia. He has had good urine output. On examination today, blood pressure was 108/69, heart rate 89 per minute. Patient is afebrile. Examination of lower extremities shows no significant edema. Heart and lungs are not examined. DATA VISUALIZATION DEVELOPER exam grossly intact. Labs are pending from today. Serum creatinine down to 2.0 yesterday on 09/18/2021 with potassium 5.6. ASSESSMENT: 1. Acute kidney injury, prerenal, and component of acute tubular necrosis, currently improving. Continue with IV fluids. 2. COVID pneumonia, maintained on steroids. 3. Pyuria with WBCs 143. Urine culture is growing Escherichia coli, maintained on antibiotics. 4. Chronic kidney disease with baseline creatinine 1.1 to 1.3 as of October 2018, mostly secondary to nephrosclerosis. PLAN: Continue with antibiotics. Check labs today and then again in a.m. Continue with normal saline. Continue treatment with steroids for COVID pneumonia. Patient is maintained on 3 L nasal cannula. MMODL / IJN: [id number] /
[2021-09-19] MEDS: SODIUM CHLORIDE 0.9% 1,000 ML IV SCH ×2 (15:05→19:25)
[2021-09-19 15:57] LABS: African American GFR (CKD) 40.9 (60.0-200.0); Anion Gap 13.9 mmol/L (4.00-12.00); BUN/Creat Ratio 26.74 Ratio (12.00-20.00); Blood Urea Nitrogen 47.6 mg/dL (9.0-27.0); Calcium 8.4 mg/dL (8.7-10.3); Carbon Dioxide 18.4 mmol/L (21.6-31.8); Non-African American GFR(CKD) 35.2 (60.0-200.0); Potassium 4.8 mmol/L (3.5-5.5)
--- NOTE | 2021-09-19 18:42 | PN ---
PROGRESS NOTE DATE OF SERVICE: 09/19/2021 This 81-year-old gentleman who was admitted with acute COVID-19 infection had acute bilateral COVID-19 interstitial pneumonia with acute hypoxic respiratory failure. Patient is being closely monitored at this time. Multiple consultants, including Dr. Nj, are following the patient closely. CT scan of the chest which was reviewed personally by me showed some bilateral pneumonia, right more than the left. Platelets are 114, potassium 5.6, creatinine is 2.01. The patient also had renal failure. Past medical history reviewed. REVIEW OF SYSTEMS: CARDIOVASCULAR SYSTEM: No angina. RESPIRATION: As mentioned earlier. GI: As mentioned earlier. : No dysuria. NERVOUS SYSTEM: No numbness, weakness. CURRENT MEDICATIONS: Reviewed. They include Tylenol, Ventolin, vitamin C, Symbicort, Rocephin, Lovenox. Doses and other medication are also reviewed. PHYSICAL EXAMINATION: Patient is alert oriented. Pulse 76, blood pressure 103/69, respiration 18, temperature 97.2, pulse ox 97% on 3 L. HEENT: Conjunctivae normal. NECK: No jugular venous distention. CARDIOVASCULAR: S1, S2 muffled. RESPIRATION: Breath sounds diminished at the bases. A few scattered rhonchi. ABDOMEN: Soft, nontender. LEGS: No edema. No swelling. NERVOUS SYSTEM: No focal deficit. LABS: WBC 5.81, hemoglobin 14.2, platelets are 114. Other labs are noted. The renal functions are not available. ASSESSMENT: 1. Acute COVID-19 infection with possible acute bilateral interstitial pneumonia with acute hypoxic respiratory failure with supplemental oxygen and under control. 2. Possible acute urinary tract infection, present on admission. 3. Escherichia coli urinary tract infection. 4. Hypoxia. Rule out sepsis. 5. Hypertension. 6. Hyperlipidemia. 7. History of cerebrovascular accident with left-sided weakness. 8. Coronary artery disease. 9. Elevated procalcitonin. 10.Elevated AST. 11.Hyperkalemia secondary to acute renal failure. 12.Acute tubular necrosis and acute renal failure. 13.History of myocardial infarction. 14.History of appendectomy. 15.History of hernia repair. 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 17.FULL CODE. RECOMMENDATIONS AND DISCUSSION: I recommend to continue current medications, continue with symptomatic treatment. Continue with bronchodilators. Continue with empiric antibiotics. Follow the cultures. The urine culture showed E coli which is polysensitive. See orders for further details. Closely monitor with the multiple consultants. Prognosis guarded. Further recommendations to follow. MMODL / IJN: [id number] /
[2021-09-19] MEDS: ATORVASTATIN 20 MG TAB PO SCH (20:10)
[2021-09-20] MEDS: SYMBICORT 80-4.5 MCG INHALER INHALATION SCH (08:22)
[2021-09-20] MEDS: ASCORBIC ACID 500 MG TAB PO SCH (08:30)
[2021-09-20] MEDS: CHOLECALCIFEROL 25 MCG (1000 IU) TABLET PO SCH (08:30)
[2021-09-20] MEDS: ENOXAPARIN 40 MG/0.4 ML SYRINGE SQ SCH (08:30)
[2021-09-20] MEDS: ZINC SULFATE 220 MG CAP PO SCH (08:30)
[2021-09-20] MEDS: ISOSORBIDE DINITRATE 20 MG TAB PO SCH (08:31)
[2021-09-20] MEDS: DEXAMETHASONE SOD PHOSPHATE 10 MG/ML 1 ML VIAL IVP SCH (08:31)
[2021-09-20 10:05] VITALS: BP 100/64; RESP 18; TEMP 97.8
[2021-09-20 11:46] VITALS: PULSE 72
[2021-09-20] MEDS: ALBUTEROL HFA INHALER INHALATION PRN (11:50)
--- NOTE | 2021-09-20 11:56 | P.PN ---
Subjective Progress Note Date: 09/20/21 Principal diagnosis: Acute COVID-19 pneumonia This is an 81-year-old male patient who was feeling weak at home and he was having falls and he contacted EMS and he checked himself to the hospital. He is known to me of taking care of him in the past because of a gram-negative UTI and sepsis back in 2018. He is also known to have multiple medical problems and comorbidities. He is known to have CVA with some left-sided weakness, hypertension, hyperlipidemia, CAD with previous MS, osteoarthritis and he has previous history of melanoma of his back that was resected. He also suffers from COPD. He started getting sick approximately 1 week ago. He felt progressively more weak. Note that he has chronic urinary incontinence. He has had previous history of UTIs. During this current admission, he was checked for COVID 19 and the return clerk to be positive. He is reporting some increased shortness of breath and cough and congestion. Currently is on 4 L and at home he does not use oxygen. He states that he is not using any oxygen at home. He uses only albuterol at home. Apparently he was on 95% on room air when he arrived to the emergency and currently is on 4 L. I'm not sure if he desaturated going to there is no documentation of the patient desaturated in the emergency. In any rate, I reviewed the chest x-ray. There is no acute abnormalities. On examination he has some crackles in the lung bases bilaterally. At the same time, his UA was abnormal and he suspected to have any cardiogenic infection. He was started on Rocephin. His current white cell count is at 7.4 with a hemoglobin of 15.7, he has lymphopenia, serum bicarb is at 19 with a BUN of 67 and a creatinine of 3.7 and his LDH level is 500, troponins at 0.01, UA is abnormal with many WBCs. Troponin is at 0.019. On 09/18/2021 patient seen in follow-up on medical surgical floor, started 3 L oxygen with pulse ox 93%, in no acute distress. No fever or chills, vital signs have been stable, no chest discomfort. No acute events overnight. He remains on Rocephin for possibility of urinary tract infection, urine culture showing gram-negative bacilli, awaiting final culture, no fever or chills. Chest x-ray shows no acute pulmonary process. Today's labs have been reviewed, showing w jennifer blood cell count 4.5, hemoglobin 15.7, sodium is 138, potassium is 5.6, chloride is 108, CO2 is 19, B1 is 53 chronic creatinine is 2.01, renal profile is improving, troponin is negative at 0.020, pro calcitonin level is at 0.21. Patient isn't daily dose of Decadron 6 mg, and prophylactic Lovenox 40 mg daily. He remains on 0.9 normal saline at 80 per hour for IV hydration. On 09/19/2021 patient seen in follow-up on medical surgical floor. He is resting in bed, currently on 3 L of oxygen pulse ox is 95%, she is doing better, breathing easier, lung sounds reveal minimal rales at bilateral bases, no chest discomfort, mild cough, afebrile, hemodynamically he stable, on Decadron 6 mg daily, he is on prophylactic dose Lovenox, he is on Rocephin for urine checked infection and urine culture showed E. coli. His labs have been reviewed, his white blood cell, is 5.8, hemoglobin is 14.9, BMP is still pending, inflammatory markers are still pending for today. His had no acute events overnight, overall he is weak, but in no acute distress. On 09/20/2021 patient seen in follow-up on medical surgical floor. He sitting up in the recliner, breathing comfortably, he is currently on room air is pulse ox is 94%, lung sounds reveal some mild crackles at the bases, overall his breathing has significantly improved, he does have exertional dyspnea, recovers. He is been tolerating ambulation his had no acute events overnight, he remains on Decadron 6 mg daily, inhaled bronchodilators and prophylactic Lovenox at 40 mg daily. Continues on Rocephin for a urinary tract infection culture was positive for E. coli. No new labs today. No new chest x-ray. Objective - Vital Signs Vital signs: Vital Signs Temp 97.8 F 09/20/21 10:04 Pulse 72 09/20/21 11:44 Resp 18 09/20/21 10:04 BP 100/64 09/20/21 10:04 Pulse Ox 94 L 09/20/21 11:44 Intake & Output 09/19/21 09/20/2109/20/21 18:59 06:59 18:59 Intake Total 480 Output Total 400 400 Balance 480 -400 -400 Intake: Oral 480 Output: Urine 400 400 Other: Voiding Method Urinal # Voids 2 3 3 - Exam GENERAL EXAM: Alert, very pleasant, 81-year-old white male, on room air with pulse ox of 94% comfortable in no apparent distress. HEAD: Normocephalic/atraumatic. EYES: Normal reaction of pupils, equal size. Conjunctiva pink, sclera white. NOSE: Clear with pink turbinates. THROAT: No erythema or exudates. NECK: No masses, no JVD, no thyroid enlargement, no adenopathy. CHEST: No chest wall deformity. Symmetrical expansion. LUNGS: Equal air entry with no crackles, diminished breath sounds at the bases. CVS: Regular rate and rhythm, normal S1 and S2, no gallops, no murmurs, no rubs ABDOMEN: Soft, nontender. No hepatosplenomegaly, normal bowel sounds, no guardi ng or rigidity. EXTREMITIES: No clubbing, no edema, no cyanosis, 2+ pulses and upper and lower extremities. MUSCULOSKELETAL: Muscle strength and tone normal. SPINE: No scoliosis or deformity SKIN: No rashes CENTRAL NERVOUS SYSTEM: Alert and oriented -3. No focal deficits, tone is normal in all 4 extremities. PSYCHIATRIC: Alert and oriented -3. Appropriate affect. Intact judgment and insight. - Labs CBC & Chem 7: 09/19/21 05:57 09/19/21 05:57 Labs: Abnormal Lab Results - Last 24 Hours (Table) 09/19/21 Range/Units 05:57 Chloride 110 H (96-109) mmol/L Carbon Dioxide 18.4 L (21.6-31.8) mmol/L Anion Gap 13.90 H (4.00-12.00) mmol/L BUN 47.6 H (9.0-27.0) mg/dL Creatinine 1.8 H (0.6-1.5) mg/dL Est GFR (CKD-EPI)AfAm 40.9 L (60.0-200.0) Est GFR (CKD-EPI)NonAf 35.2 L (60.0-200.0) BUN/Creatinine Ratio 26.74 H (12.00-20.00) Ratio Glucose 119 H (70-110) mg/dL Calcium 8.4 L (8.7-10.3) mg/dL Microbiology - Last 24 Hours (Table) 09/17/21 02:48 Urine Culture - Final Urine,Voided Escherichia coli Assessment and Plan Plan: Assessment: #1. Acute COVID-19 pneumonia, with acute hypoxic respiratory failure, currently on Decadron 6 blood gram daily, Lovenox at prophylactic dose #2. Acute urinary tract infection with urine culture showing E. coli, on Rocephin #3. Acute kidney injury, improving #4. Weakness related to the above, improved #5. History of CVA with residual left-sided weakness #6. Hypertension #7. Hyperlipidemia #8. CAD with previous MS #9. Osteoarthritis #10. History of melanoma with resection #11. COPD #12. History of chronic kidney disease, with acute kidney injury related to intravascular volume depletion Plan: Increase activity as tolerated Patient has been tolerating ambulation He is on room air, maintaining O2 saturations above 90% No fever or chills, breathing comfortably he stable for discharge home today from pulmonary perspective on 6 more days of Decadron and oral antibiotics for his urinary tract infection Outpatient follow-up with Dr. hassan in the office in 2 weeks I performed a history & physical examination of the patient and discussed their management with my nurse practitioner, Jacquelyn Lugo. I reviewed the nurse practitioner's note and agree with the documented findings and plan of care. Lung sounds are positive for diminished breath sounds throughout the lung chavez. The findings and the impression was discussed with the patient. I attest to the documentation by the nurse practitioner. Time with Patient: Less than 30
[2021-09-20] MEDS: SODIUM CHLORIDE 0.9% 1,000 ML IV SCH (13:33)
--- NOTE | 2021-09-21 09:08 | P.DS ---
Providers Date of admission: 09/17/21 05:48 Expected date of discharge: 09/20/21 Attending physician: Joan Edwards Consults: 09/17/21 10:13 Consult Physician Routine Consulting Provider: Brigitte Ambriz Consult Reason/Comments: COVID 19 infection Do you want consulting provider notified?: Yes 09/17/21 10:14 Consult Physician Routine Consulting Provider: Roderick Anna Consult Reason/Comments: BO Do you want consulting provider notified?: Yes Primary care physician: Mark Mitchell Hospital Course: Final diagnosis Acute COVID-19 infection with possible acute bilateral interstitial pneumonia with acute hypoxic respiratory failure with supplemental oxygen and under control Possible acute urinary tract infection, present on admission E. coli urinary tract infection Hypoxia. Rule out sepsis Hypertension Hyperlipidemia history of cerebrovascular accident with left-sided weakness Coronary artery disease Elevated pro calcitonin Elevated AST hyperkalemia secondary to acute renal failure acute tubular necrosis and acute renal failure history of myocardial infarction history of appendectomy history of hernia repair history of MRSA Full code Discharge disposition Patient is being discharged in a stable condition with guarded prognosis to home. Patient will follow-up with Dr. Mitchell in the outpatient setting upon discharge this Saturday as scheduled. Patient is to follow-up with pulmonary in the outpatient setting. Patient Will continue with vitamin and zinc supplements along with dexamethasone and oral Ceftin 500 mg twice daily for the next 3 days to complete the course. Patient Will continue to 3 L of oxygen via nasal cannula secondary to COVID-19. Total time taken is greater than 35 minutes. Hospital course This is an 81-year-old male who was recently admitted with acute COVID-19 infection also had acute bilateral COVID-19 interstitial pneumonia with acute hypoxic respiratory failure. Pulmonary following closely. Patient also had some evidence of acute renal failure as well. Patient was maintained on IV dexamethasone along with vitamin and zinc supplements and will continue in the outpatient setting. Patient to continue with oral Ceftin 500 mg twice daily for the next 3 days to complete the course. Patient's urine culture did finalized showing E. coli with sensitivities. Instructed to follow-up with pulmonary in the outpatient setting and continue to use incentive spirometer at least 10 times every hour while awake and monitor pulse ox readings to monitor oxygen saturations closely. Currently no reports of chest pain, worsening shortness of breath, or palpitations. Patient is afebrile. No reports of nausea or vomiting and patient is tolerating diet. Patient will be discharged home today. Guarded prognosis. On exam vital signs are stable. Cardio S1, S2 are muffled. Respiratory system shows diminished breath sounds at the bases with no wheezing or rhonchi noted. Abdomen is soft and nontender. Nervous system shows no focal deficits. Please refer to medication reconciliation sheet for a list of medications. Patient Condition at Discharge: Fair Plan - Discharge Summary Discharge Rx Participant: No New Discharge Prescriptions: New Cefuroxime Axetil [Ceftin] 500 mg PO BID 3 Days #6 tab Zinc Sulfate [Orazinc] 220 mg PO DAILY #30 cap Dexamethasone [Decadron] 6 mg PO DAILY 6 Days #6 tablet Ascorbic Acid [Vitamin C] 500 mg PO BID #30 tab Cholecalciferol [Vitamin D3 (25 Mcg = 1000 Iu)] 50 mcg PO DAILY #60 tablet Continue Simvastatin [Zocor] 20 mg PO HS Isosorbide Dinitrate [Isordil] 40 mg PO BID Nitroglycerin Sl Tabs [Nitrostat] 0.4 mg SUBLINGUAL Q5M PRN PRN Reason: Chest Pain Acetaminophen Tab [Tylenol] 500 mg PO Q6HR PRN tab PRN Reason: Fever and/ or Mild Pain Fluticasone Propion/Salmeterol [Fluticasone-Salmeterol 250-50] 1 puff INHALATION RT-BID Albuterol Sulfate [Albuterol Sulfate Hfa] 1 puff PO RT-QID PRN PRN Reason: Shortness Of Breath methocarbamoL [Methocarbamol] 750 mg PO QID PRN PRN Reason: Muscle Spasm Discontinued amLODIPine BESYLATE [Norvasc] 10 mg PO DAILY lisinopriL [Zestril] 10 mg PO DAILY lisinopriL [Zestril] 20 mg PO HS Discharge Medication List Isosorbide Dinitrate [Isordil] 40 mg PO BID 04/03/16 [History] Simvastatin [Zocor] 20 mg PO HS 04/03/16 [History] Nitroglycerin Sl Tabs [Nitrostat] 0.4 mg SUBLINGUAL Q5M PRN 10/03/18 [History] Acetaminophen Tab [Tylenol] 500 mg PO Q6HR PRN tab 10/09/18 [Rx] Albuterol Sulfate [Albuterol Sulfate Hfa] 1 puff PO RT-QID PRN 09/17/21 [History] Fluticasone Propion/Salmeterol [Fluticasone-Salmeterol 250-50] 1 puff INHALATION RT-BID 09/17/21 [History] methocarbamoL [Methocarbamol] 750 mg PO QID PRN 09/17/21 [History] Ascorbic Acid [Vitamin C] 500 mg PO BID #30 tab 09/20/21 [Rx] Cefuroxime Axetil [Ceftin] 500 mg PO BID 3 Days #6 tab 09/20/21 [Rx] Cholecalciferol [Vitamin D3 (25 Mcg = 1000 Iu)] 50 mcg PO DAILY #60 tablet 09/20/21 [Rx] Dexamethasone [Decadron] 6 mg PO DAILY 6 Days #6 tablet 09/20/21 [Rx] Zinc Sulfate [Orazinc] 220 mg PO DAILY #30 cap 09/20/21 [Rx] Follow up Appointment(s)/Referral(s): Mark Mitchell MD [Primary Care Provider] - 09/22/21 2:10 pm (this will be a telehealth phone ) [facility],[place] [NON-STAFF] - As Needed [facility] [NON-STAFF] - As Needed Brigitte Ambriz MD [STAFF PHYSICIAN] - 10/20/21 2:00 pm Ambulatory/Diagnostic Orders: Complete Blood Count w/diff [LAB.AMB] Time Frame: 3 Days, Location: None Selected Patient Instructions/Handouts: Coronavirus Disease 2019 (COVID-19), Urinary Tract Infection in Men (DC) Activity/Diet/Wound Care/Special Instructions: Activity Limited until follow-up Follow-up with primary care provider on discharge Continue taking medications as prescribed Continue with oxygen at 3 L via nasal cannula secondary to COVID-19 Continue with antibiotics until finished Follow-up pulmonary outpatient Repeat labs in 2-3 days Discharge/Stand Alone Forms: Who Do I Call?, Community Resources, Help In The Home, 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
== END 2021-09-20 15:01 | disposition home health service (06) | DRG 177 ==
LOC: EC 02:04 → 4SSUR 05:48
PROVIDERS: ADMIT Hospitalist; ATTEND Hospitalist
DX: U07.1 COVID-19 (principal); J12.82 Pneumonia due to coronavirus disease 2019; N17.0 Acute kidney failure with tubular necrosis; J96.01 Acute respiratory failure with hypoxia; N39.0 Urinary tract infection, site not specified; J44.0 Chronic obstructive pulmonary disease with (acute) lower respiratory infection; I69.354 Hemiplegia and hemiparesis following cerebral infarction affecting left non-dominant side; M19.90 Unspecified osteoarthritis, unspecified site; I12.9 Hypertensive chronic kidney disease with stage 1 through stage 4 chronic kidney disease, or unspecified chronic kidney disease; E86.0 Dehydration; E78.5 Hyperlipidemia, unspecified; I25.10 Atherosclerotic heart disease of native coronary artery without angina pectoris; B96.20 Unspecified Escherichia coli [E. coli] as the cause of diseases classified elsewhere; E87.5 Hyperkalemia; N18.9 Chronic kidney disease, unspecified; N39.498 Other specified urinary incontinence; I25.2 Old myocardial infarction; Z85.820 Personal history of malignant melanoma of skin; Z98.890 Other specified postprocedural states; Z79.51 Long term (current) use of inhaled steroids; Z79.899 Other long term (current) drug therapy; Z87.440 Personal history of urinary (tract) infections; Z87.891 Personal history of nicotine dependence; Z90.49 Acquired absence of other specified parts of digestive tract; Z86.14 Personal history of Methicillin resistant Staphylococcus aureus infection; Z99.81 Dependence on supplemental oxygen
CPT/HCPCS: 36415; 71045; 71250; 80048; 80053; 81001; 82728; 83605; 83615; 83735; 83880; 84100; 84145; 84484; 85025; 85379; 85610; 85730; 86140; 87077; 87086; 87186; 87635; 93005; 93306; 94640; 94760; 96360; 99285

== ENCOUNTER 2022-07-23 07:21 | Day surgery (SDC) | payer MEDICARE ==
[2022-07-20 09:34] VITALS: BMI 33.9
[2022-07-23] MEDS ORDERED: SODIUM CHLORIDE 0.9% 1,000 ML IV ONE (09:12)
[2022-07-23] MEDS ORDERED: ALPRAZolam 0.25 MG TAB PO PRN (09:20)
[2022-07-23] MEDS ORDERED: NITROGLYCERIN SL TABS 0.4 MG TAB SUBLINGUAL PRN (09:20)
[2022-07-23] MEDS ORDERED: ASPIRIN 325 MG TAB PO STA (09:20)
[2022-07-23] MEDS ORDERED: ALPRAZolam 0.5 MG TAB PO PRN (09:20)
[2022-07-23] MEDS ORDERED: ATORVASTATIN 80 MG TAB PO STA (09:20)
[2022-07-23] MEDS ORDERED: SODIUM CHLORIDE 0.9% 1,000 ML in EMPTY BAG 1 BAG IV ONE (09:20)
[2022-07-23 09:41] LABS: Basophils # (A) 0.1 k/uL (0-0.2); Basophils % (A) 1 %; Eosinophils # (A) 0.1 k/uL (0-0.7); Eosinophils % (A) 1 %; HCT 49.9 % (39.0-53.0); HGB 16.2 gm/dL (13.0-17.5); Lymphocytes # (A) 1.9 k/uL (1.0-4.8); Lymphocytes % (A) 22 %; MCH 30.8 pg (25.0-35.0); MCHC 32.5 g/dL (31.0-37.0); MCV 94.8 fL (80.0-100.0); Mean Platelet Volume 10.4; Monocytes # (A) 0.6 k/uL (0-1.0); Monocytes % (A) 7 %; Neutrophils # (A) 5.9 k/uL (1.3-7.7); Neutrophils % (A) 68 %; Platelet Count 116 k/uL (150-450); RBC 5.26 m/uL (4.30-5.90); RDW 13.9 % (11.5-15.5); WBC 8.7 k/uL (3.8-10.6)
[2022-07-23 10:17] LABS: Potassium 5.5 mmol/L (3.5-5.1)
[2022-07-23] MEDS ORDERED: VERAPAMIL 2.5 MG/ML 2 ML AMP ONE (11:42)
[2022-07-23] MEDS ORDERED: HEPARIN SODIUM 1,000 UN/ML (10ML VL) ONE (11:42)
[2022-07-23] MEDS ORDERED: fentaNYL (PF) 50 MCG/ML 2 ML AMP ONE (11:55)
[2022-07-23] MEDS ORDERED: fentaNYL (PF) 50 MCG/ML 2 ML AMP IVP ONE (12:20)
[2022-07-23] MEDS ORDERED: LIDOCAINE 1% INJ 10MG/ML (30 ML VIAL-PF) SQ ONE (12:21)
[2022-07-23] MEDS ORDERED: MIDAZOLAM 2 MG/2 ML VIAL IVP ONE (12:23)
[2022-07-23] MEDS ORDERED: VERAPAMIL SYRINGE (5 MG/10 ML) INTRAARTER ONE (12:25)
[2022-07-23] MEDS: HEPARIN SODIUM 1,000 UN/ML (10ML VL) IVP ONE ×2 (12:28→12:44)
[2022-07-23] MEDS ORDERED: IOPAMIDOL-370 125ML BTL INJ ONE (13:09)
[2022-07-23] MEDS ORDERED: RX INFO: IV CONTRAST WAS GIVEN 1 EACH MISC MISCELLANE PRN (13:15)
[2022-07-23] MEDS ORDERED: SODIUM CHLORIDE 0.9% 500 ML 500 ML IV ONE (14:30)
[2022-07-23] MEDS: SODIUM CHLORIDE 0.9% 1,000 ML IV SCH ×2 (17:10→20:25)
[2022-07-23] MEDS ORDERED: ISOSORBIDE MONONITRATE ER 30 MG TAB.ER.24H PO SCH (21:00)
--- NOTE | 2022-07-23 22:33 | P.CARDCATH ---
Description of Procedure: PROCEDURES PERFORMED: Left heart catheterization, bilateral coronary angiography, iFR left main into LAD, iFR RCA INDICATION: Abnormal stress test, NSTEMI CONSENT:I have discussed the risks, benefits and alternative therapies for the above-mentioned procedure and for both sedation/analgesia as well as necessary blood product administration, if indicated, as they pertain to this patient. The patient has indicated understanding and acceptance of the risks and procedures discussed. PROCEDURE: After the risks, benefits and alternatives of the above mentioned procedure explained in detail with the patient, informed consent was obtained. Patient was taken to the catheterization lab and prepped and draped in usual fashion. 1% lidocaine was used to anesthetize the right radial artery. A 6- Portuguese sheath was placed in the right radial artery using modified Seldinger technique. Left coronary angiography was performed with a 5-Portuguese JL 3.5 catheter and right coronary angiography was performed with a 5-Portuguese JR5 catheter in various views. A 5-Portuguese FR5 catheter was inserted into the left ventricle and pressure measurements were obtained. The decision was made to perform iFR of the RCA as well as LAD, left main. Heparin was given. A 6-Portuguese FR5 guide was used to engage RCA. A 0.014 pressure wire was advanced into the proximal RCA and normalize. The wire was then advanced into the mid RCA and iFR was performed of the mid RCA and was 0.80. This was advanced into the more distal RCA and was also abnormal 0.75. There is no drift with pullback. Next a 6-Portuguese CLS 3.5 guide was used to engage the left main. The 0.014 pressure wire was advanced into the left main and normalize. The wire was then advanced into the very proximal LAD and iFR of the left main was normal at 0.93. The wire was advanced distal to the proximal LAD 50-60% lesion and was then 0.82. Given CKD decision was made to stage inter vention if needed. The right radial sheath was removed and a TR band was placed with hemostasis achieved. The patient tolerated the procedure well. Patient was transported back to the post catheterization holding area in stable condition. Conscious Sedation: Patient was monitored under the direct supervision of vision of myself for conscious sedation using Versed and fentanyl for a total duration of 47 minutes HEMODYNAMICS: Ao: 139/81 LV: 151/12, LVEDP 20 SELECTIVE CORONARY ARTERIOGRAPHY: LEFT MAIN: The left main is a large caliber vessel which bifurcates into the LAD and circumflex. There is a mid to distal left main 40% stenosis. LEFT ANTERIOR DESCENDING CORONARY ARTERY: LAD is a large caliber vessel which wraps around to the apex. There is a proximal LAD 50-60% stenosis and otherwise mild luminal irregularities. There are left to left collaterals to the circumflex. LEFT CIRCUMFLEX CORONARY ARTERY: Left circumflex is a moderate caliber vessel with 100% proximal stenosis. RIGHT CORONARY ARTERY: The right coronary artery is a large caliber vessel which gives off a PDA and PLV branch and is the dominant vessel. There is diffuse long area of 70% stenosis from proximal to mid RCA and additional PDA 70% stenosis. FINAL IMPRESSION: 1. CAD as described above including 40% left main, 50-60% proximal LAD, 100% circumflex, 70% RCA and 70% PDA stenosis. 2. iFR RCA abnormal at 0.75, iFR left main noted to be 0.93 and iFR LAD 0.82. Likely LAD iFR abnormality combination of left main and proximal LAD lesions. 3. Elevated left sided filling pressures PLAN: 1. Aggressive risk factor modification per most recent ACC/AHA guidelines. 2. Consider revascularization vs medical therapy. Reassess in office with possible staged intervention.
[2022-07-24] MEDS ORDERED: HEPARIN SODIUM,PORCINE 2,500 UNIT in SODIUM CHLORIDE 0.9% 250 ML IRRIGATION PRN (07:00)
[2022-07-24] MEDS ORDERED: HEPARIN SODIUM,PORCINE 10,000 UNIT in SODIUM CHLORIDE 0.9% 1,000 ML IRRIGATION PRN (07:00)
--- NOTE | 2022-07-24 08:11 | P.DS ---
Providers Attending physician: Reynaldo Kerr DO Primary care physician: Stated None Hospital Course: Patient is pleasant 82-year-old male who presented for elective heart catheterization performed 07/23 through the right radial approach. Patient was found to have longer area of RCA disease consistent with stress test findings and iFR confirmed abnormal RCA. There was additional left main 40% stenosis as well as 100% circumflex and a proximal LAD 50-60% stenosis. iFR of the left main was normal at 0.93 however of the LAD was abnormal likely a combination of moderate to severe left main and LAD disease. Given contrast threshold and CKD decision was made to monitor and consider staged PCI of the RCA. Due to housing issues and transportation patient was monitored overnight and stable for discharge 07/24. Plan - Discharge Summary Discharge Rx Participant: No New Discharge Prescriptions: New Atorvastatin [Lipitor] 40 mg PO DAILY #90 tab Discontinued Simvastatin [Zocor] 40 mg PO HS No Action Isosorbide Mononitrate [Isosorbide Mononitrate ER] 30 mg PO HS Aspirin [Adult Low Dose Aspirin EC] 81 mg PO DAILY Discharge Medication List Aspirin [Adult Low Dose Aspirin EC] 81 mg PO DAILY 07/20/22 [History] Isosorbide Mononitrate [Isosorbide Mononitrate ER] 30 mg PO HS 07/20/22 [History] Atorvastatin [Lipitor] 40 mg PO DAILY #90 tab 07/23/22 [Rx] Follow up Appointment(s)/Referral(s): Reynaldo Kerr DO [STAFF PHYSICIAN] - 07/30/22 3:45 pm (FOLLOW UP APPOINTMENT IS ON SaturdayJul AT 3:45 pm) Patient Instructions/Handouts: *[facility] - After Heart Catheterization - Wedding [employer]anner Instructions, Moderate Sedation (DC)
[2022-07-24] MEDS ORDERED: ATORVASTATIN 40 MG TAB PO SCH (09:00)
[2022-07-24] MEDS ORDERED: ASPIRIN 81 MG PO SCH (09:00)
[2022-07-24 09:25] VITALS: BP 134/66; PULSE 61; RESP 20; TEMP 98
== END 2022-07-24 10:34 | disposition home or self-care (01) ==
LOC: CATHCVL 07:21 → 3SCARD 13:15 → CATHCVL 07-24 10:34
PROVIDERS: ATTEND Internal Medicine
DX: R94.39 Abnormal result of other cardiovascular function study (principal); I25.10 Atherosclerotic heart disease of native coronary artery without angina pectoris; I12.9 Hypertensive chronic kidney disease with stage 1 through stage 4 chronic kidney disease, or unspecified chronic kidney disease; N18.9 Chronic kidney disease, unspecified; I25.82 Chronic total occlusion of coronary artery; Z20.822 Contact with and (suspected) exposure to COVID-19; Z87.891 Personal history of nicotine dependence; E78.5 Hyperlipidemia, unspecified; E78.00 Pure hypercholesterolemia, unspecified; Z79.82 Long term (current) use of aspirin; Z79.899 Other long term (current) drug therapy
CPT/HCPCS: 93458; 93799; 80048; 85025; 87635; C1769 ×3; C1887 ×3; C1894; J2250; J2001; J3010; J1644; Q9967

== ENCOUNTER 2022-08-15 07:42 | Day surgery (SDC) | payer MEDICARE ==
[~2022-08-15 07:42] MED LIST: ALPRAZolam 0.25 MG TAB PO PRN; ALPRAZolam 0.5 MG TAB PO PRN; ASPIRIN 325 MG TAB PO ONE; NITROGLYCERIN SL TABS 0.4 MG TAB SUBLINGUAL PRN; SODIUM CHLORIDE 0.9% 1,000 ML in EMPTY BAG 1 BAG IV ONE
[2022-08-15] MEDS ORDERED: SODIUM CHLORIDE 0.9% 1,000 ML IV ONE (09:12)
[2022-08-15 09:46] LABS: Basophils % (A) 0 %; Eosinophils # (A) 0.1 k/uL (0-0.7); Eosinophils % (A) 1 %; HCT 47.9 % (39.0-53.0); HGB 15.8 gm/dL (13.0-17.5); Lymphocytes # (A) 1.6 k/uL (1.0-4.8); Lymphocytes % (A) 19 %; MCH 30.6 pg (25.0-35.0); MCHC 32.9 g/dL (31.0-37.0); MCV 93.1 fL (80.0-100.0); Mean Platelet Volume 10.7; Monocytes # (A) 0.5 k/uL (0-1.0); Monocytes % (A) 7 %; Neutrophils # (A) 5.9 k/uL (1.3-7.7); Neutrophils % (A) 72 %; Platelet Count 120 k/uL (150-450); RBC 5.14 m/uL (4.30-5.90); RDW 13.6 % (11.5-15.5); WBC 8.2 k/uL (3.8-10.6)
[2022-08-15 09:55] LABS: Calcium 9.1 mg/dL (8.4-10.2); Potassium 3.9 mmol/L (3.5-5.1)
[2022-08-15] MEDS ORDERED: VERAPAMIL 2.5 MG/ML 2 ML AMP ONE (10:46)
[2022-08-15] MEDS ORDERED: fentaNYL (PF) 50 MCG/ML 2 ML AMP ONE (10:46)
[2022-08-15] MEDS ORDERED: HEPARIN SODIUM 1,000 UN/ML (10ML VL) ONE (10:46)
[2022-08-15] MEDS ORDERED: fentaNYL (PF) 50 MCG/ML 2 ML AMP IVP ONE (10:58)
[2022-08-15] MEDS ORDERED: MIDAZOLAM 2 MG/2 ML VIAL IVP ONE (10:59)
[2022-08-15] MEDS ORDERED: LIDOCAINE 1% INJ 10MG/ML (5 ML VIAL-PF) SQ ONE (11:02)
[2022-08-15] MEDS ORDERED: VERAPAMIL SYRINGE (5 MG/10 ML) INTRAARTER ONE (11:03)
[2022-08-15] MEDS: HEPARIN SODIUM 1,000 UN/ML (10ML VL) IVP ONE ×3 (11:03→11:14)
[2022-08-15] MEDS: NITROGLYCERIN 1000MCG/10ML SYRINGE INTRACORON ONE ×2 (11:36→11:57)
[2022-08-15] MEDS ORDERED: PHENYLEPHRINE 10 MG/ML VIAL IV ONE (12:01)
[2022-08-15] MEDS ORDERED: PHENYLEPHRINE-0.9% NACL SYG 1,000 MCG/10 ML SYRINGE IV ONE (12:01)
[2022-08-15] MEDS ORDERED: IOPAMIDOL-370 125ML BTL INJ ONE (12:09)
[2022-08-15] MEDS ORDERED: ZOLPIDEM 5 MG TAB PO PRN (12:12)
[2022-08-15] MEDS ORDERED: RX INFO: IV CONTRAST WAS GIVEN 1 EACH MISC MISCELLANE PRN (12:12)
[2022-08-15] MEDS ORDERED: MAG HYDROX/AL HYDROX/SIMETH 30 ML CUP PO PRN (12:12)
[2022-08-15] MEDS ORDERED: ATROPINE SULFATE 0.1 MG/ML 10ML SYRINGE IV PRN (12:12)
[2022-08-15] MEDS ORDERED: SODIUM CHLORIDE 0.9% 1,000 ML in EMPTY BAG 1 BAG IV SCH (12:15)
--- NOTE | 2022-08-15 12:24 | P.PRCINT ---
Percutaneous Coronary Int. 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 T he patient has indicated understanding and acceptance of the risks and procedures discussed. PROCEDURE: After the risks, benefits and alternatives of the above mentioned procedure explained in detail with the patient, informed consent was obtained. Patient was taken to the catheterization lab and prepped and draped in usual fashion. 1% lidocaine was used to anesthetize the right radial artery. A 6- Kazakh sheath was placed in the right radial artery using modified Seldinger technique. A 6-Kazakh AL-1 guide was used to engage the RCA. A 0.014 BMW wire was advanced into the distal PDA. With the help of a guideline or predilation was performed proximally with a 2.5 x 15 mm balloon. The proximal and mid RCA was then predilated again with a 3.0 x 12 mm noncompliant balloon. Next a 2.5 x 12 mm balloon was used to predilate the PDA lesion. Next a 2.75 x 15 mm Xience RICHARDSON was deployed in the proximal PDA. Preintervention there is 80% PDA stenosis and MELISSA-3 flow and postintervention there was less than 10% stenosis and MELISSA-3 flow. Next a 3.5 x 38 mm Xience RICHARDSON was deployed in the mid RCA. A 4.0 x 23 mm Xience RICHARDSON was deployed overlapping the mid RCA stent more proximally from the proximal to mid RCA. The proximal portion was postdilated with a 4.0 noncompliant balloon. Final angiograms were performed. The right radial sheath was removed and a TR band was placed with hemostasis achieved. The patient tolerated the procedure well. Patient was transported back to the post catheterization holding area in stable condition. Conscious Sedation: Patient was monitored under the direct supervision of vision of myself for conscious sedation using Versed and fentanyl for a total duration of 65 minutes HEMODYNAMICS: Ao: 126/78 SELECTIVE CORONARY ARTERIOGRAPHY: LEFT MAIN: Not imaged, see prior catheterization report. LEFT ANTERIOR DESCENDING CORONARY ARTERY: Not imaged, see prior catheterization report. LEFT CIRCUMFLEX CORONARY ARTERY: Not imaged, see prior catheterization report. RIGHT CORONARY ARTERY: The right coronary artery is a large caliber vessel which gives off a PDA and PLV branch and is the dominant vessel. There is diffuse long proximal and mid RCA stenosis 50 up to 80% stenosis previously iFR abnormal. The mid to distal RCA has a 50% stenosis. The PDA has tandem 70% and 80% stenoses proximally then mild luminal irregularities. FINAL IMPRESSION: 1. CAD as described above including 80% proximal RCA, 50% mid to distal RCA, 80% proximal PDA stenosis 2. S/p PCI proximal to mid RCA with overlapping 4.0 x 23mm and 3.5 x 38mm Xience RICHARDSON, post dilated proximally with 4.0 NC balloon, PCI proximal PDA with a 2.75 x 15mm Xience RICHARDSON PLAN: 1. Aggressive risk factor modification per most recent ACC/AHA guidelines. 2. Continue dual antiplatelets for 12 months with aspirin and Plavix
[2022-08-15] MEDS ORDERED: ISOSORBIDE MONONITRATE ER 30 MG TAB.ER.24H PO SCH (21:00)
[2022-08-16] MEDS ORDERED: ATORVASTATIN 40 MG TAB PO SCH (09:00)
[2022-08-16] MEDS ORDERED: CLOPIDOGREL 75 MG TAB PO SCH (09:00)
[2022-08-16] MEDS ORDERED: ASPIRIN 81 MG PO SCH (09:00)
--- NOTE | 2022-08-16 09:34 | P.DS ---
Providers Attending physician: Reynaldo Kerr DO Consults: 08/15/22 12:12 Consult Physician Routine Consulting Provider: [facility] Consult Reason/Comments: Post Interventional patient Do you want consulting provider notified?: Already Contacted Primary care physician: Mark Mitchell [facility] Course: This is an 82-year-old male who underwent cardiac catheterization with Dr. Kerr. Patient has known CAD. Cardiac catheterization revealed 80% proximal RCA, 50% mid to distal RCA, and 80% proximal PDA stenosis. He is s/p PCI proximal to mid RCA with overlapping 4.0 x 23mm and 3.5 x 38mm Xience RICHARDSON, post dilated proximally with 4.0 NC balloon, PCI proximal PDA with a 2.75 x 15mm Xience RICHARDSON. Patient examined this morning at the bedside. Patient denies chest pain or pressure. Denies shortness of breath. Vital signs are stable. He was deemed stable for discharge home today per Dr. Kerr. Please see EMR for further hospital course details. Discharge diagnosis Coronary artery disease, status post PCI as above Nurse practitioner note has been reviewed by physician. Signing provider agrees with the documented findings, assessment, and plan of care. Plan - Discharge Summary Discharge Rx Participant: No New Discharge Prescriptions: Continue Isosorbide Mononitrate [Isosorbide Mononitrate ER] 30 mg PO HS Atorvastatin [Lipitor] 40 mg PO DAILY #90 tab Aspirin [Adult Low Dose Aspirin EC] 81 mg PO DAILY Clopidogrel [Plavix] 75 mg PO DAILY Discharge Medication List Aspirin [Adult Low Dose Aspirin EC] 81 mg PO DAILY 07/20/22 [History] Isosorbide Mononitrate [Isosorbide Mononitrate ER] 30 mg PO HS 07/20/22 [History] Atorvastatin [Lipitor] 40 mg PO DAILY #90 tab 07/23/22 [Rx] Clopidogrel [Plavix] 75 mg PO DAILY 08/14/22 [History] Follow up Appointment(s)/Referral(s): Reynaldo Kerr DO [STAFF PHYSICIAN] - 08/21/22 1:45 pm Patient Instructions/Handouts: Coronary Intravascular Stent Placement (DC), After Radial Heart Catheterization (GEN), Procedural Sedation (ED), Left Heart Catheterization (DC) Activity/Diet/Wound Care/Special Instructions: No flexing/bending/pushing/pulling/lifting greater than 5 pounds x5 days No driving x3 days No submersion of right wrist in pools/hot tubs/bath tubs/dish water x3 days Follow up Fall risk/safety precautions No changes with home medications Encourage fluids x2 days
[2022-08-16 09:37] VITALS: BP 153/83; PULSE 80; TEMP 97.7
[2022-08-16 10:25] VITALS: RESP 22
[2022-08-16 11:07] VITALS: BMI 33.6
== END 2022-08-16 11:28 | disposition home or self-care (01) ==
LOC: CATHCVL 07:42 → 6NMEDSUR 12:06 → CATHCVL 08-16 11:28
PROVIDERS: ATTEND Internal Medicine
DX: I25.10 Atherosclerotic heart disease of native coronary artery without angina pectoris (principal); I25.82 Chronic total occlusion of coronary artery; I10 Essential (primary) hypertension; E78.5 Hyperlipidemia, unspecified; L97.529 Non-pressure chronic ulcer of other part of left foot with unspecified severity; J45.909 Unspecified asthma, uncomplicated; I25.2 Old myocardial infarction; Z86.73 Personal history of transient ischemic attack (TIA), and cerebral infarction without residual deficits; Z87.891 Personal history of nicotine dependence; Z79.02 Long term (current) use of antithrombotics/antiplatelets; Z79.82 Long term (current) use of aspirin; Z79.899 Other long term (current) drug therapy
CPT/HCPCS: 80048; 82565; 85025; C9600; C1769 ×2; C1887 ×3; C1894; C1725 ×4; C1874 ×3; J2250; J2001; J3010; J1644; J2370; Q9967

== ENCOUNTER 2024-09-28 16:49 | Inpatient (IN) | payer MEDICARE ==
[2024-09-28 17:42] LABS: Anisocytosis Slight; Basophils % (A) 0 %; Eosinophils # (A) 0.1 k/uL (0-0.7); Eosinophils % (A) 1 %; HCT 33.7 % (39.0-53.0); HGB 10.3 gm/dL (13.0-17.5); Hypochromasia Marked; Lymphocytes % (A) 7 %; MCH 23.9 pg (25.0-35.0); MCHC 30.6 g/dL (31.0-37.0); MCV 78.2 fL (80.0-100.0); Mean Platelet Volume 8.8; Microcytosis Slight; Monocytes # (A) 0.8 k/uL (0-1.0); Monocytes % (A) 6 %; Neutrophils # (A) 11.8 k/uL (1.3-7.7); Neutrophils % (A) 85 %; Platelet Count 146 k/uL (150-450); RBC 4.31 m/uL (4.30-5.90); RDW 16.3 % (11.5-15.5); WBC 13.9 k/uL (3.8-10.6)
--- NOTE | 2024-09-28 17:52 | XR ---
EXAMINATION TYPE: XR chest 2V DATE OF EXAM: 09/28/2024 5:44 PM COMPARISON: Previous chest radiograph 09/18/2021. CLINICAL INDICATION: Male, 84 years old with history of Weakness; [facility] TECHNIQUE: XR chest 2V Frontal and lateral views of the chest. FINDINGS: Heart size and pulmonary vasculature appear mildly prominent, possibly technique related. No sizable pleural effusion. Retrocardiac opacity suspicious for atelectasis or pneumonia, best visualized on lateral view. No pneumothorax. No acute osseous abnormality. Multilevel thoracic spine degenerative changes and chronic wedging. IMPRESSION: Retrocardiac opacity suspicious for atelectasis or pneumonia in the appropriate clinical setting. [facility], , 09/28/2024 5:49 PM
--- NOTE | 2024-09-28 17:53 | XR ---
EXAMINATION TYPE: XR pelvis AP view DATE OF EXAM: 09/28/2024 5:44 PM COMPARISON: None available. CLINICAL INDICATION: Male, 84 years old with history of fall; [facility] TECHNIQUE: XR pelvis AP view, examined in a single projection. FINDINGS: Osseous structures qualitatively appear demineralized. 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 No acute fracture or dislocation. No evidence of acute radiopaque foreign body. IMPRESSION: No acute osseous pathology. [facility], , 09/28/2024 5:51 PM
[2024-09-28 17:56] LABS: INR 1.1 (<1.2); Prothrombin Time 12.1 sec (10.0-12.5)
[2024-09-28 18:01] LABS: ALT 44 U/L (4-49); AST 262 U/L (17-59); African American GFR (CKD) 42 (>60 ml/min/1.73 sqM); Albumin 3.4 g/dL (3.5-5.0); Alkaline Phosphatase 102 U/L (38-126); Anion Gap 10 mmol/L; Blood Urea Nitrogen 37 mg/dL (9-20); Calcium 8.4 mg/dL (8.4-10.2); Carbon Dioxide 21 mmol/L (22-30); Chloride 110 mmol/L (98-107); Glucose 104 mg/dL (74-99); Magnesium 1.9 mg/dL (1.6-2.3); Non-African American GFR(CKD) 37 (>60 ml/min/1.73 sqM); Sodium 141 mmol/L (137-145); Total Bilirubin 0.8 mg/dL (0.2-1.3); Total Protein 7.2 g/dL (6.3-8.2)
[2024-09-28 18:03] LABS: Partial Thromboplastin Time 20.5 sec (22.0-30.0)
[2024-09-28 18:05] LABS: NT-Pro-B-Type Natriuretic Pept 6490 pg/mL
[2024-09-28 19:10] LABS: Potassium 3.8 mmol/L (3.5-5.1)
--- NOTE | 2024-09-28 19:22 | ED ---
Fall HPI - General Chief Complaint: Fall Stated Complaint: Fall Time Seen by Provider: 09/28/24 17:00 Source: EMS Mode of arrival: EMS - History of Present Illness Initial Comments: 84-year-old male with past medical history of melanoma, CVA, hypertension, coronary disease who presents to the emergency department after a fall. Patient took a fall with his walker on Saturday. Denies hitting his head. Was unable to stand up. He laid on the floor until today when [employer] came to his house. When they could not get a hold of the patient they had neighbors alerted. A welfare check occurred by police and the patient was found on the ground. EMS was called. He denies any injuries from the fall, he was just too weak to stand up. He denies any chest pain or difficulty breathing. No abdominal pain. No pain in any of his extremities. Patient did not want to come to the hospital however EMS was able to coax him into coming. He denies any lateralizing weakness. No reported syncope. No other alleviating, precipitating modifying factors - Related Data Home Medications Medication Instructions Recorded Confirmed Clopidogrel [Plavix] 75 mg PO DAILY 08/14/22 09/28/24 Isosorbide Mononitrate Er (Unknown 1 tab PO DAILY 09/28/24 09/28/24 Dose) Nitroglycerin Sl Tabs [Nitrostat] 0.4 mg SUBLINGUAL Q5M PRN 09/28/24 09/28/24 Previous Rx's Medication Instructions Recorded Atorvastatin [Lipitor] 40 mg PO DAILY #90 tab 07/23/22 Allergies Allergy/AdvReac Type Severity Reaction Status Date / Time No Known Allergies Allergy Verified 09/28/24 18:47 Review of Systems ROS Statement: Those systems with pertinent positive or pertinent negative responses have been documented in the HPI. ROS Other: All systems not noted in ROS Statement are negative. Past Medical History Past Medical History: Asthma, Cancer, CVA/TIA, Hearing Disorder / Deafness, Hyperlipidemia, Hypertension, Myocardial Infarction ([place]), Osteoarthritis (OA) Additional Past Medical History / Comment(s): CVA 1992-left side weakness- uses walker, past wound on lower left leg- treated at [facility] wound center, past venous leg ulcers, melanoma back and basal skin cancer L shoulder, URINATES FREQUENTLY, Last Myocardial Infarction Date:: 2008 History of Any Multi-Drug Resistant Organisms: MRSA Date of last positivie culture/infection: 10/04/18 MDRO Source:: Left First Toe Past Surgical History: Appendectomy, Back Surgery, Heart Catheterization, Hernia Repair, Orthopedic Surgery Additional Past Surgical History / Comment(s): 05/01/16 Wide excision melanoma back, excision lesion L shoulder basal cancer. Other surgical hx: DEBRIDEMENT OF LEFT CALF/LEG, umbilical hernia repair, lumbar spine surgery Past Anesthesia/Blood Transfusion Reactions: No Reported Reaction Past Psychological History: No Psychological Hx Reported Smoking Status: Former smoker Past Alcohol Use History: None Reported Past Drug Use History: None Reported - Past Family History Mother History Unknown: Yes Father History Unknown: Yes General Exam Limitations: no limitations Course Vital Signs 09/28/24 16:55 Temperature 98.6 F Pulse Rate 86 Respiratory 16 Rate Blood Pressure 122/70 O2 Sat by Pulse 100 Oximetry Medical Decision Making - Medical Decision Making Was pt. sent in by a medical professional or institution (, PA, SUBSORTER, urgent care, hospital, or snf...) When possible be specific @ -[No] Did you speak to anyone other than the patient for history (EMS, parent, family, police, friend...)? What history was obtained from this source @ -[No] Did you review nursing and triage notes (agree or disagree)? Why? @ -[I reviewed and agree with nursing and triage notes] Were old charts reviewed (outside hosp., previous admission, EMS record, old EKG, old radiological studies, urgent care reports/EKG's, snf records)? Report findings @ -[No old charts were reviewed] Differential Diagnosis (chest pain, altered mental status, abdominal pain women, abdominal pain men, vaginal bleeding, weakness, fever, dyspnea, syncope, headache, dizziness, GI bleed, back pain, seizure, CVA, palpatations, mental health, musculoskeletal)? @ -[not applicable] EKG interpreted by me (3pts min.). @ -Completed at 1715 and demonstrates sinus rhythm with a rate of 89. MA interval 201. QRS 95. QTc of 446. No acute ST segment elevation. ST depression V2 through V6. Repeat EKG conducted at 1824 demonstrates sinus rhythm with PAC. Significant artifact. Rate of 82. QRS 94. QTc of 408. No acute ST segment elevations. Depression appears improved X-rays interpreted by me (1pt min.). @ -[None done] CT interpreted by me (1pt min.). @ -[None done] U/S interpreted by me (1pt. min.). @ -[None done] What testing was considered but not performed or refused? (CT, X-rays, U/S, labs)? Why? @ -[None] What meds were considered but not given or refused? Why? @ -[None] Did you discuss the management of the patient with other professionals (professionals i.e. , PA, SUBSORTER, lab, RT, psych nurse, social worker clinical, varnisher plasticoater, teacher, digital marketing officer, telehealth case manager)? Give summary @ -[No] Was smoking cessation discussed for >3mins.? @ -[No] Was critical care preformed (if so, how long)? @ -[No] Were there social determinants of health that impacted care today? How? (Homelessness, low income, unemployed, alcoholism, drug addiction, transportation, low edu. Level, literacy, decrease access to med. care, penitentiary, rehab)? @ -[No] Was there de-escalation of care discussed even if they declined (Discuss DNR or withdrawal of care, Hospice)? DNR status @ -[No] What co-morbidities impacted this encounter? (DM, HTN, Smoking, COPD, CAD, Cancer, CVA, ARF, Chemo, Hep., AIDS, mental health diagnosis, sleep apnea, m orbid obesity)? @ -[None] Was patient admitted / discharged? Hospital course, mention meds given and route, prescriptions, significant lab abnormalities, going to OR and other pertinent info. @ -[hospital course] Undiagnosed new problem with uncertain prognosis? @ -[No] Drug Therapy requiring intensive monitoring for toxicity (Heparin, Nitro, Insulin, Cardizem)? @ -[No] Were any procedures done? @ -[No] Diagnosis/symptom? @ -[default] Acute, or Chronic, or Acute on Chronic? @ -[default] Uncomplicated (without systemic symptoms) or Complicated (systemic symptoms)? @ -[default] Side effects of treatment? @ -[No] Exacerbation, Progression, or Severe Exacerbation? @ -[No] Poses a threat to life or bodily function? How? (Chest pain, USA, HI, pneumonia, PE, COPD, DKA, ARF, appy, cholecystitis, CVA, Diverticulitis, Homicidal, Suicidal, threat to staff... and all critical care pts) @ -[No] - Lab Data Result diagrams: 09/28/24 17:09/28/24 17: Lab Results 09/28/24 09/28/24 09/28/24 Range/Units 17:25 17:25 17:25 WBC 13.9 H (3.8-10.6) k/uL RBC 4.31 (4.30-5.90) m/uL Hgb 10.3 L (13.0-17.5) gm/dL Hct 33.7 L (39.0-53.0) % MCV 78.2 L (80.0-100.0) fL MCH 23.9 L (25.0-35.0) pg MCHC 30.6 L (31.0-37.0) g/dL RDW 16.3 H (11.5-15.5) % Plt Count 146 L (150-450) k/uL MPV 8.8 Neutrophils % 85 % Lymphocytes % 7 % Monocytes % 6 % Eosinophils % 1 % Basophils % 0 % Neutrophils # 11.8 H (1.3-7.7) k/uL Lymphocytes # 1.0 (1.0-4.8) k/uL Monocytes # 0.8 (0-1.0) k/uL Eosinophils # 0.1 (0-0.7) k/uL Basophils # 0.0 (0-0.2) k/uL Hypochromasia Marked Anisocytosis Slight Microcytosis Slight PT 12.1 (10.0-12.5) sec INR 1.1 (<1.2) APTT 20.5 L (22.0-30.0) sec Sodium 141 (137-145) mmol/L Potassium 3.8 (3.5-5.1) mmol/L Chloride 110 H (98-107) mmol/L Carbon Dioxide 21 L (22-30) mmol/L Anion Gap 10 mmol/L BUN 37 H (9-20) mg/dL Creatinine 1.70 H (0.66-1.25) mg/dL Est GFR (CKD-EPI)AfAm 42 (>60 ml/min/1.73 sqM) Est GFR (CKD-EPI)NonAf 37 (>60 ml/min/1.73 sqM) Glucose 104 H (74-99) mg/dL Lactic Ac Sepsis Rflx Plasma Lactic Acid Glen (0.7-2.0) mmol/L Calcium 8.4 (8.4-10.2) mg/dL Magnesium 1.9 (1.6-2.3) mg/dL Total Bilirubin 0.8 (0.2-1.3) mg/dL AST 262 H (17-59) U/L ALT 44 (4-49) U/L Alkaline Phosphatase 102 (38-126) U/L Creatine Kinase 3628 H* (55-170) U/L Troponin I (0.000-0.034) ng/mL NT-Pro-B Natriuret Pep 6490 pg/mL Total Protein 7.2 (6.3-8.2) g/dL Albumin 3.4 L (3.5-5.0) g/dL Stool Occult Blood (Negative) C. difficile (EIA) Intrp (Negative) 09/28/24 09/28/24 09/28/24 Range/Units 17:25 17:25 18:02 WBC (3.8-10.6) k/uL RBC (4.30-5.90) m/uL Hgb (13.0-17.5) gm/dL Hct (39.0-53.0) % MCV (80.0-100.0) fL MCH (25.0-35.0) pg MCHC (31.0-37.0) g/dL RDW (11.5-15.5) % Plt Count (150-450) k/uL MPV Neutrophils % % Lymphocytes % % Monocytes % % Eosinophils % % Basophils % % Neutrophils # (1.3-7.7) k/uL Lymphocytes # (1.0-4.8) k/uL Monocytes # (0-1.0) k/uL Eosinophils # (0-0.7) k/uL Basophils # (0-0.2) k/uL Hypochromasia Anisocytosis Microcytosis PT (10.0-12.5) sec INR (<1.2) APTT (22.0-30.0) sec Sodium (137-145) mmol/L Potassium (3.5-5.1) mmol/L Chloride (98-107) mmol/L Carbon Dioxide (22-30) mmol/L Anion Gap mmol/L BUN (9-20) mg/dL Creatinine (0.66-1.25) mg/dL Est GFR (CKD-EPI)AfAm (>60 ml/min/1.73 sqM) Est GFR (CKD-EPI)NonAf (>60 ml/min/1.73 sqM) Glucose (74-99) mg/dL Lactic Ac Sepsis Rflx Y Plasma Lactic Acid Glen 3.0 H* (0.7-2.0) mmol/L Calcium (8.4-10.2) mg/dL Magnesium (1.6-2.3) mg/dL Total Bilirubin (0.2-1.3) mg/dL AST (17-59) U/L ALT (4-49) U/L Alkaline Phosphatase (38-126) U/L Creatine Kinase (55-170) U/L Troponin I 32.000 H* (0.000-0.034) ng/mL NT-Pro-B Natriuret Pep pg/mL Total Protein (6.3-8.2) g/dL Albumin (3.5-5.0) g/dL Stool Occult Blood (Negative) C. difficile (EIA) Intrp (Negative) 09/28/24 09/28/24 Range/Units 18:51 18:51 WBC (3.8-10.6) k/uL RBC (4.30-5.90) m/uL Hgb (13.0-17.5) gm/dL Hct (39.0-53.0) % MCV (80.0-100.0) fL MCH (25.0-35.0) pg MCHC (31.0-37.0) g/dL RDW (11.5-15.5) % Plt Count (150-450) k/uL MPV Neutrophils % % Lymphocytes % % Monocytes % % Eosinophils % % Basophils % % Neutrophils # (1.3-7.7) k/uL Lymphocytes # (1.0-4.8) k/uL Monocytes # (0-1.0) k/uL Eosinophils # (0-0.7) k/uL Basophils # (0-0.2) k/uL Hypochromasia Anisocytosis Microcytosis PT (10.0-12.5) sec INR (<1.2) APTT (22.0-30.0) sec Sodium (137-145) mmol/L Potassium (3.5-5.1) mmol/L Chloride (98-107) mmol/L Carbon Dioxide (22-30) mmol/L Anion Gap mmol/L BUN (9-20) mg/dL Creatinine (0.66-1.25) mg/dL Est GFR (CKD-EPI)AfAm (>60 ml/min/1.73 sqM) Est GFR (CKD-EPI)NonAf (>60 ml/min/1.73 sqM) Glucose (74-99) mg/dL Lactic Ac Sepsis Rflx Plasma Lactic Acid Glen (0.7-2.0) mmol/L Calcium (8.4-10.2) mg/dL Magnesium (1.6-2.3) mg/dL Total Bilirubin (0.2-1.3) mg/dL AST (17-59) U/L ALT (4-49) U/L Alkaline Phosphatase (38-126) U/L Creatine Kinase (55-170) U/L Troponin I (0.000-0.034) ng/mL NT-Pro-B Natriuret Pep pg/mL Total Protein (6.3-8.2) g/dL Albumin (3.5-5.0) g/dL Stool Occult Blood Negative (Negative) C. difficile (EIA) Intrp Negative (Negative) Disposition Clinical Impression: Fall, Rhabdomyolysis, NSTEMI (non-ST elevated myocardial infarction) Disposition: ADMITTED IP TO THIS HOSP Condition: Serious Is patient prescribed a controlled substance at d/c from ED?: No Time of Disposition: 20:14 Decision to Admit Reason: Admit from EC Decision Date: 09/28/24 Decision Time: 20:14
[2024-09-28 19:37] LABS: Creatine Kinase 3628 U/L (55-170)
--- NOTE | 2024-09-28 20:03 | CT ---
EXAMINATION TYPE: CT brain cspine wo con DATE OF EXAM: 09/28/2024 7:51 PM COMPARISON: None available. CLINICAL INDICATION: Male, 84 years old with history of fall; Fall x 2 days ago, continued weakness TECHNIQUE: Brain: Multiple axial CT images of the brain were obtained without IV contrast. Cspine: Axial CT images from the skull base to the inferior aspect of T2 we obtained without intraven ous contrast. Coronal and sagittal reformatted images were also reviewed. . CT DLP: 1465.8 mGycm, Automated exposure control for dose reduction was used. FINDINGS: Brain: Extra-axial spaces: No abnormal extra-axial fluid collections. Ventricular system: Prominent suggestive of mild to moderate generalized volume loss. Cerebral parenchyma: No acute intraparenchymal hemorrhage or mass effect. The parrish-white junction is acutely differentiated. Scattered hypoattenuating areas are seen within the white matter. Cerebellum: Unremarkable. Mass effect: No evidence of midline shift. Intracranial vasculature: unremarkable Soft tissues: Normal. Calvarium/osseous structures: No depressed skull fracture. Paranasal sinuses and mastoid air cells: Clear. Visualized orbits: Orbital contents are intact. Cervical spine: Fracture: None. Osseous structures: Unremarkable Vertebral alignment: Within normal limits. Spinal canal/Neural Foramina: Multilevel facet arthropathy and uncovertebral hypertrophy examination with posterior disc ossify complexes cause appearing degrees of spinal canal and neural foraminal claudine rowing. Multilevel intervertebral disc space loss and anterior osteophyte formation. Neck soft tissues: Prevertebral soft tissues are within normal limits. Other: The airway is patent. The lung apices are clear. Superficial soft tissue mass in the skin of the left neck measuring 2.9 x 0.8 cm, recommend clinical correlation with direct visualization. IMPRESSION: 1. No acute intracranial process. 2. No acute fracture or traumatic subluxation of the cervical spine. 3. Soft tissue mass in the superficial left neck soft tissues measuring 2.9 x 0.8 cm. Recommend clin ical correlation with direct visualization. [facility], , 09/28/2024 8:01 PM
[2024-09-28] MEDS ORDERED: NALOXONE 0.4 MG/ML 1 ML VIAL IV PRN (20:16)
[2024-09-28] MEDS: SODIUM CHLORIDE 0.9% 1,000 ML IV SCH (20:45)
[2024-09-28] MEDS: HEPARIN SOD,PORK IN 0.45% NACL 25,000 UNIT in 0.45% NACL 1 250ML.BAG IV SCH (20:47)
[2024-09-28] MEDS: HEPARIN SODIUM 1,000 UN/ML (10ML VL) IV ONE (20:47)
[2024-09-28] MEDS: ASPIRIN 81 MG PO STA (20:52)
[2024-09-29 03:52] LABS: Appearance,Urine Clear (Clear); Bacteria,Urine Rare /hpf; Bilirubin,Urine Negative (Negative); Blood,Urine Moderate (Negative); Budding Yeast,Urine Occasional /hpf; Color,Urine Light Yellow; Glucose,Urine (UA) Negative (Negative); Hyaline Casts,Urine 5 /lpf (0-2); Ketones,Urine Negative (Negative); Leukocyte Esterase,Urine Moderate (Negative); Mucus,Urine Few /hpf; Nitrite,Urine Positive (Negative); PH, Urine 5.5 (5.0-8.0); Protein,Urine Trace (Negative); RBC,Urine 2 /hpf (0-5); Specific Gravity,Urine 1.018 (1.001-1.035); Squamous Epithelial Cell,Urine <1 /hpf (0-4); Urobilinogen,Urine <2.0 mg/dL (<2.0); WBC,Urine 36 /hpf (0-5)
[2024-09-29] MEDS: HEPARIN SODIUM 1,000 UN/ML (10ML VL) IV PRN (04:24)
[2024-09-29] MEDS: ATORVASTATIN 40 MG TAB PO SCH (08:25)
[2024-09-29] MEDS: ASPIRIN 81 MG PO SCH (08:25)
[2024-09-29] MEDS: CLOPIDOGREL 75 MG TAB PO SCH (08:25)
[2024-09-29 09:02] LABS: African American GFR (CKD) 46 (>60 ml/min/1.73 sqM); Anion Gap 8 mmol/L; Blood Urea Nitrogen 39 mg/dL (9-20); Calcium 8.2 mg/dL (8.4-10.2); Carbon Dioxide 21 mmol/L (22-30); Chloride 109 mmol/L (98-107); Glucose 117 mg/dL (74-99); Non-African American GFR(CKD) 40 (>60 ml/min/1.73 sqM); Potassium 3.9 mmol/L (3.5-5.1); Sodium 138 mmol/L (137-145)
[2024-09-29 09:11] LABS: Creatine Kinase 1579 U/L (55-170)
[2024-09-29 09:26] LABS: Anisocytosis Slight; Basophils % (A) 0 %; Eosinophils % (A) 0 %; HCT 32.5 % (39.0-53.0); HGB 9.7 gm/dL (13.0-17.5); Hypochromasia Marked; Lymphocytes # (A) 0.8 k/uL (1.0-4.8); Lymphocytes % (A) 6 %; MCH 23.8 pg (25.0-35.0); MCHC 29.7 g/dL (31.0-37.0); MCV 80.1 fL (80.0-100.0); Mean Platelet Volume 8.1; Monocytes # (A) 0.7 k/uL (0-1.0); Monocytes % (A) 5 %; Neutrophils # (A) 11.1 k/uL (1.3-7.7); Neutrophils % (A) 87 %; Platelet Count 126 k/uL (150-450); RBC 4.06 m/uL (4.30-5.90); RDW 16.5 % (11.5-15.5); WBC 12.9 k/uL (3.8-10.6)
[2024-09-29 09:33] LABS: INR 1.1 (<1.2); Prothrombin Time 11.7 sec (10.0-12.5)
--- NOTE | 2024-09-29 10:20 | P.CRDCN ---
History of Present Illness History of present illness: HISTORY OF PRESENT ILLNESS: This is a 84-year-old male with a past medical history significant for coronary artery disease with previous PCI of the RCA, hypertension, hyperlipidemia, asth ma, asymptomatic pauses, CVA, and former nicotine dependence. Patient follows in the office with Dr. Kerr. We have been asked to see the patient in consultation for elevated troponins. Patient examined at the bedside in the emergency room. The patient sustained a mechanical fall at home. He laid on the floor for an unknown amount of time. He was eventually found after well for check was completed by police. The patient states he is having generalized pain all over his body. He denies any chest pain or pressure. Denies any shortness of breath. The patient was found to have elevated troponins and was started on IV heparin. DIAGNOSTICS: - EKG reveals sinus mechanism with ST depression in inferior leads and V2V6 - Chest xray retrocardiac opacity suspicious for atelectasis or pneumonia - Laboratory data: WBC 13.9. Hemoglobin 10.3. Platelet count 146. Sodium 141. Potassium 3.8. BUN 37. Creatinine 1.70. Lactic acid 2.5. Creatinine kinase 3628. Troponin 32. proBNP 6490. - Current home cardiac medications include Imdur dose unknown, Plavix 75 mg daily, Lipitor 40 mg daily - Most recent echocardiogram obtained in the office in June 2024 revealed ejection fraction 55%, mild LVH, trace aortic regurgitation, mild aortic stenosis, mild mitral regurgitation, mild tricuspid regurgitation - Patient underwent low-level treadmill exercise stress test in August 2022 which was negative for ischemia - Cardiac catheterization history: August 2022 revealing 80% proximal RCA, 50% mid to distal RCA, 80% proximal PDA stenosis. Patient underwent PCI of the proximal to mid RCA with 2 overlapping drug-eluting stents. Patient also underwent PCI of the PDA with 1 drug-eluting stent. REVIEW OF SYSTEMS: At the time of my exam: CONSTITUTIONAL: Denies fever or chills. HEENT: Denies blurred vision, vision changes, or eye pain. Denies hemoptysis CARDIOVASCULAR: Denies chest pain. Denies orthopnea. Denies PND. Denies palpitations RESPIRATORY: Denies shortness of breath. GASTROINTESTINAL: Denies abdominal pain. Denies nausea or vomiting. HEMATOLOGIC: Denies bleeding disorders. GENITOURINARY: Denies any blood in urine. SKIN: Denies pruitis. Denies rash. PHYSICAL EXAM: VITAL SIGNS: Reviewed. GENERAL: Well-developed in no acute distress. HEENT: Head is normocephalic. Pupils are equal, round. Sclerae anicteric. Mucous membranes of the mouth are moist. Neck supple. No JVD or thyromegaly LUNGS: Respirations even and unlabored. Lungs essentially clear to auscultation bilaterally. HEART: Regular rate and rhythm. S1 and S2 heard. Systolic murmur noted. ABDOMEN: Soft. Nondistended. Nontender. EXTREMITIES: Normal range of motion. No clubbing or cyanosis. Peripheral pulses intact. No lower extremity edema NEUROLOGIC: Awake and alert. Oriented x 3. ASSESSMENT: Status post fall Rhabdomyolysis Non-STEMI Coronary artery disease with previous PCI of the RCA and PDA, 08/2022 Mild aortic stenosis Hypertension Hyperlipidemia History of asthma History of asymptomatic pauses History of CVA Former nicotine dependence PLAN: Obtain 2D echo to assess cardiac structure and function Resume home cardiac medications Add aspirin 81 mg daily low-dose metoprolol 12.5 mg twice a day Continue IV heparin Trend troponins Continue with medical management at this time. No plans for cardiac catheterization. Further recommendations pending patient course Nurse practitioner note has been reviewed by physician. Signing provider agrees with the documented findings, assessment, and plan of care documented by PIN CLEANER as a scribe. Past Medical History Past Medical History: Asthma, Cancer, CVA/TIA, Hearing Disorder / Deafness, Hyperlipidemia, Hypertension, Myocardial Infarction ([place]), Osteoarthritis (OA) Additional Past Medical History / Comment(s): CVA 1992-left side weakness- uses walker, past wound on lower left leg- treated at [facility], past venous leg ulcers, melanoma back and basal skin cancer L shoulder, URINATES FREQUENTLY, Last Myocardial Infarction Date:: 2008 History of Any Multi-Drug Resistant Organisms: MRSA Date of last positivie culture/infection: 10/04/18 MDRO Source:: Left First Toe Past Surgical History: Appendectomy, Back Surgery, Heart Catheterization, Hernia Repair, Orthopedic Surgery Additional Past Surgical History / Comment(s): 05/01/16 Wide excision melanoma back, excision lesion L shoulder basal cancer. Other surgical hx: DEBRIDEMENT OF LEFT CALF/LEG, umbilical hernia repair, lumbar spine surgery Past Anesthesia/Blood Transfusion Reactions: No Reported Reaction Past Psychological History: No Psychological Hx Reported Smoking Status: Former smoker Past Alcohol Use History: None Reported Past Drug Use History: None Reported - Past Family History Mother History Unknown: Yes Father History Unknown: Yes Medications and Allergies Home Medications Medication Instructions Recorded Confirmed Type Atorvastatin [Lipitor] 40 mg PO DAILY #90 tab 07/23/22 09/28/24 Rx Clopidogrel [Plavix] 75 mg PO DAILY 08/14/22 09/28/24 History Nitroglycerin Sl Tabs [Nitrostat] 0.4 mg SUBLINGUAL Q5M PRN 09/28/24 09/28/24 History Isosorbide Mononitrate ER [Imdur] 60 mg PO DAILY 09/29/24 09/29/24 History Allergies Allergy/AdvReac Type Severity Reaction Status Date / Time No Known Allergies Allergy Verified 09/28/24 18:47 Physical Exam Vitals: Vital Signs Temp Pulse Resp BP Pulse Ox 09/29/24 06:44 98.6 F 101 H 20 113/64 97 09/29/24 03:08 102 H 20 119/73 96 09/29/24 00:51 100 20 116/62 96 09/28/24 16:55 98.6 F 86 16 122/70 100 Intake and Output 09/28/24 09/29/24 09/29/24 22:59 06:59 14:59 Intake Total 74.833 Output Total 200 Balance -125.167 Intake: Intake, IV Titration 74.833 Amount Heparin Sod,Pork in 0.45% 74.833 NaCl 25,000 unit In 0.45 % NaCl 1 250ml.bag @ 9. 1859 UNITS/KG/HR 10 mls/ hr IV .Q24H [facility] Rx#: [id number] Output: Post Void Residual 200 Other: Weight 108.862 kg Results 09/29/24 09:01 09/29/24 08:14 Cardiac Enzymes 09/28/24 09/28/24 Range/Units 17:25 17:25 AST 262 H (17-59) U/L Troponin I 32.000 H* (0.000-0.034) ng/mL Coagulation 09/28/24 09/29/24 Range/Units 17:25 02:57 PT 12.1 (10.0-12.5) sec APTT 20.5 L 28.7 (22.0-30.0) sec CBC 09/28/24 Range/Units 17:25 WBC 13.9 H (3.8-10.6) k/uL RBC 4.31 (4.30-5.90) m/uL Hgb 10.3 L (13.0-17.5) gm/dL Hct 33.7 L (39.0-53.0) % Plt Count 146 L (150-450) k/uL Comprehensive Metabolic Panel 09/28/24 Range/Units 17:25 Sodium 141 (137-145) mmol/L Potassium 3.8 (3.5-5.1) mmol/L Chloride 110 H (98-107) mmol/L Carbon Dioxide 21 L (22-30) mmol/L BUN 37 H (9-20) mg/dL Creatinine 1.70 H (0.66-1.25) mg/dL Glucose 104 H (74-99) mg/dL Calcium 8.4 (8.4-10.2) mg/dL AST 262 H (17-59) U/L ALT 44 (4-49) U/L Alkaline Phosphatase 102 (38-126) U/L Total Protein 7.2 (6.3-8.2) g/dL Albumin 3.4 L (3.5-5.0) g/dL Current Medications Generic Name Dose Route Start Last Admin Trade Name Freq PRN Reason Stop Dose Admin Acetaminophen 650 mg 09/28/24 20:16 Acetaminophen Tab 325 Mg Tab PO Q6HR PRN Mild Pain or Fever > 100.5 Aspirin 81 mg 09/29/24 09:00 Aspirin 81 Mg PO DAILY [facility] Atorvastatin Calcium 40 mg 09/29/24 09:00 Atorvastatin 40 Mg Tab PO DAILY [facility] Clopidogrel Bisulfate 75 mg 09/29/24 09:00 Clopidogrel 75 Mg Tab PO DAILY [facility] Heparin Sodium (Porcine) 0 unit 09/28/24 20:14 09/29/24 04:24 Heparin Sodium 1,000 Un/Ml (10ml Vl) IV 4,000 unit PER PROTOCOL PRN Administration Low PTT Protocol Heparin Sodium/Sodium Chloride 250 mls @ 10 mls/hr 09/28/24 20:15 09/29/24 04:16 25,000 unit/ Sodium Chloride IV 12.185 units/kg/hr .Q24H [facility] 13.265 mls/hr Titration Protocol 9.1859 UNITS/KG/HR Sodium Chloride 1,000 mls @ 75 mls/hr 09/28/24 20:15 09/28/24 20:45 Saline 0.9% IV 75 mls/hr .[id number] [facility] Administration Naloxone HCl 0.2 mg 09/28/24 20:16 Naloxone 0.4 Mg/Ml 1 Ml Vial IV Q2M PRN Opioid Reversal Intake and Output 09/28/24 09/29/24 09/29/24 22:59 06:59 14:59 Intake Total 74.833 Output Total 200 Balance -125.167 Intake: Intake, IV Titration 74.833 Amount Heparin Sod,Pork in 0.45% 74.833 NaCl 25,000 unit In 0.45 % NaCl 1 250ml.bag @ 9. 1859 UNITS/KG/HR 10 mls/ hr IV .Q24H [facility] Rx#: [id number] Output: Post Void Residual 200 Other: Weight 108.862 kg 09/28/24 17:25 09/28/24 17:25
[2024-09-29] MEDS: METOPROLOL TARTRATE 12.5 MG TAB PO SCH (10:26)
--- NOTE | 2024-09-29 13:22 | CA ---
Transthoracic Echo Report Name: Indio Oden Age: 84 Gender: M : 1940 Exam Date: 09/29/2024 09:26 Exam Location: [facility] Ht (in): 72 Wt (lb): 240 Ordering Physician: Lynn Slaughter Attending/Referring Phys: [id number], Kasandra Regulatory Attorney Francoise Rogers RDCS Procedure CPT: Indications: LV function, NSTEMI, s/p fall Cardiac Hx: Technical Quality: Technically difficult study Contrast 1: Total Dose (mL): Contrast 2: Total Dose (mL): MEASUREMENTS (Male / Female) Normal Values 2D ECHO LV Diastolic Diameter PLAX 6.0 cm 4.2 - 5.9 / 3.9 - 5.3 cm LV Systolic Diameter PLAX 4.0 cm IVS Diastolic Thickness 1.1 cm 0.6 - 1.0 / 0.6 - 0.9 cm LVPW Diastolic Thickness 1.3 cm 0.6 - 1.0 / 0.6 - 0.9 cm LV Relative Wall Thickness 0.4 RV Internal Dim ED PLAX 4.4 cm LVOT Diameter 2.6 cm LA Systolic Diameter LX 3.9 cm 3.0 - 4.0 / 2.7 - 3.8 cm LV Diastolic Volume MOD BP 129.1 cm??? 67 - 155 / 56 - 104 cm??? LV Systolic Volume MOD BP 78.7 cm??? 22 - 58 / 19 - 49 cm??? LV Ejection Fraction MOD BP 39.0 % >= 55 % LV Cardiac Index MOD BP 2028.0 cm???/min???m??? LV Diastolic Volume MOD 4C 155.5 cm??? LV Systolic Volume MOD 4C 92.5 cm??? LV Ejection Fraction MOD 4C 40.5 % LV Cardiac Index MOD 4C 2538.1 cm???/min???m??? LV Diastolic Length 4C 9.8 cm LV Systolic Length 4C 8.9 cm LV Diastolic Volume MOD 2C 102.5 cm??? LV Systolic Volume MOD 2C 64.2 cm??? LV Ejection Fraction MOD 2C 37.4 % LV Cardiac Index MOD 2C 1543.9 cm???/min???m??? LV Diastolic Length 2C 9.3 cm LV Systolic Length 2C 9.5 cm LA Volume 94.8 cm??? 18 - 58 / 22 - 52 cm??? LA Volume Index 39.8 cm???/m??? 16 - 28 cm???/m??? M-MODE Aortic Root Diameter MM 3.9 cm AV Cusp Separation MM 1.6 cm DOPPLER AV Peak Velocity 225.7 cm/s AV Peak Gradient 20.4 mmHg AV Mean Velocity 159.5 cm/s AV Mean Gradient 11.4 mmHg AV Velocity Time Integral 42.5 cm LVOT Peak Velocity 95.6 cm/s LVOT Peak Gradient 3.7 mmHg LVOT Velocity Time Integral 20.4 cm LVOT Stroke Volume 105.9 cm??? LVOT Stroke Volume Index 46.0 ml/m??? LVOT Cardiac Index 4268.1 cm???/min???m??? AV Area Cont Eq vti 2.5 cm??? AV Area Cont Eq pk 2.2 cm??? MV Area PHT 6.7 cm??? Mitral E Point Velocity 110.5 cm/s Mitral A Point Velocity 84.6 cm/s Mitral E to A Ratio 1.3 MV Deceleration Time 113.9 ms TR Peak Velocity 321.1 cm/s TR Peak Gradient 41.2 mmHg Right Ventricular Systolic Press 46.2 mmHg FINDINGS Left Ventricle Left ventricular ejection fraction is estimated at 40-45 %. Anteroapical and septal apical hypokinesis. Moderately impaired left ventricular systolic function.Mildly increased left ventricular wall thickness. Right Ventricle Moderate right ventricular dilatation. Moderate pulmonary hypertension. Right ventricular systolic pressure estimated at 46 mm hg. Right Atrium Right atrium not well visualized. Left Atrium Moderately increased left atrial volume. Mildly increased left atrial area. Mitral Valve Mitral valve thickened. Mild mitral regurgitation. Aortic Valve Aortic valve not well visualized. Mild aortic stenosis with a peak gradient of 20 mmHg and a mean gradient of 11 mmHg. Tricuspid Valve Structurally normal tricuspid valve. Mild tricuspid regurgitation. Pulmonic Valve Pulmonic valve not well visualized. Pericardium No pericardial or pleural effusion. Aorta Moderate aortic dilatation at the level of the sinuses of valsalva 39 mm CONCLUSIONS 1. Moderately impaired left ventricular systolic function with segmental wall motion abnormality 2. Mild mitral and tricuspid regurgitation with moderate pulmonary hypertension 3. Mild aortic stenosis Previewed by: Dr. Karen Fam MD (Electronically Signed) Final Date: 29 September 2024 13:21
[2024-09-29] MEDS: LOPERAMIDE 2 MG CAP PO PRN (14:48)
[2024-09-29] MEDS: ACETAMINOPHEN TAB 325 MG TAB PO PRN (18:41)
[2024-09-29] MEDS: methylPREDNISolone SOD SUCCI 40 MG/ML 1 ML VIAL IV SCH (18:41)
[2024-09-29] MEDS: BUDESONIDE 0.5 MG/2 ML NEBU INHALATION SCH (20:32)
[2024-09-29] MEDS: IPRATROPIUM-ALBUTEROL 3 ML NEB INHALATION SCH (20:33)
[2024-09-29] MEDS ORDERED: IPRATROPIUM-ALBUTEROL 3 ML NEB INHALATION PRN (20:34)
[2024-09-29] MEDS: TOBRAMYCIN 0.3% OPHTH DROPS 5 ML BTL RIGHT EYE SCH (21:53)
[2024-09-29] MEDS: NYSTATIN 100,000 UNIT/GM POWD 15 GM TOPICAL SCH (21:54)
--- NOTE | 2024-09-30 01:24 | P.HPIM ---
History of Present Illness H&P Date: 09/29/24 Chief Complaint: Status post fall and laid on the ground Patient is a 84-year-old male with known history of coronary artery disease with stent placement, history of CVA minimal left-sided weakness uses walker, hearing disorder/deafness, asthma, hypertension, hyperlipidemia, osteoarthritis, prior history of smoking. Patient presents to ER status post fall. Patient states that he was walking to the bathroom and Saturday night and took a fall with his walker. Denied any hitting his head. Patient was unable to stand up and laid on the floor until Saturday morning when the [employer] came to his house., Which is around 4 PM. When they could not get hold of him they had never selected a welfare check was occurred by police and the patient was found on the ground. EMS was called. Otherwise patient was awake and oriented. Denied any injuries from the fall. Hip states that he was too weak to stand up. Denied any chest pain or shortness of breath. No abdominal pain. Patient has been having loose stools recently. Denied any leg weakness. No complaints of headache. No palpitations. No leg swelling. Chest x-ray on admission showed retrocardiac opacity suspicious for atelectasis or pneumonia in the appropriate clinical setting. Pelvic x-ray showed no acute osseous pathology. CT head and cervical spine showed no acute intracranial process. No acute fracture or traumatic subluxation of the cervical spine. Soft tissue mass in the superficial left neck soft tissues measuring 2.9 x 0.8 cm recommend clinical correlation with direct visualization. EKG showed ectopic atrial rhythm. Laboratory data showed WBC 13.9, hemoglobin 10.3 MCV 78.2 and platelets 146 sodium 141 potassium 3.8 chloride 110 bicarb is 21 BUN 37 creatinine 1.7 and blood sugar 104 lactic acid 3.0 AST 262 ALT 44 alk phos 102 and CK level 3628 and troponin 32.0 and proBNP 6490 albumin 3.0 stool for occult blood is negative and CT of is negative. Review of Systems Complete review of systems could not be obtained from the patient except as per HPI Past Medical History Past Medical History: Asthma, Cancer, CVA/TIA, Hearing Disorder / Deafness, Hyperlipidemia, Hypertension, Myocardial Infarction ([place]), Osteoarthritis ([place]) Additional Past Medical History / Comment(s): CVA 1992-left side weakness- uses walker, past wound on lower left leg- treated at [facility] wound center, past venous leg ulcers, melanoma back and basal skin cancer L shoulder, URINATES FREQUENTLY, Last Myocardial Infarction Date:: 2008 History of Any Multi-Drug Resistant Organisms: MRSA Date of last positivie culture/infection: 10/04/18 MDRO Source:: Left First Toe Past Surgical History: Appendectomy, Back Surgery, Heart Catheterization, Hernia Repair, Orthopedic Surgery Additional Past Surgical History / Comment(s): 05/01/16 Wide excision melanoma back, excision lesion L shoulder basal cancer. Other surgical hx: DEBRIDEMENT OF LEFT CALF/LEG, umbilical hernia repair, lumbar spine surgery Past Anesthesia/Blood Transfusion Reactions: No Reported Reaction Past Psychological History: No Psychological Hx Reported Smoking Status: Former smoker Past Alcohol Use History: None Reported Past Drug Use History: None Reported - Past Family History Mother History Unknown: Yes Father History Unknown: Yes Medications and Allergies Home Medications Medication Instructions Recorded Confirmed Type Atorvastatin [Lipitor] 40 mg PO DAILY #90 tab 07/23/22 09/28/24 Rx Clopidogrel [Plavix] 75 mg PO DAILY 08/14/22 09/28/24 History Nitroglycerin Sl Tabs [Nitrostat] 0.4 mg SUBLINGUAL Q5M PRN 09/28/24 09/28/24 History Isosorbide Mononitrate ER [Imdur] 60 mg PO DAILY 09/29/24 09/29/24 History Allergies Allergy/AdvReac Type Severity Reaction Status Date / Time No Known Allergies Allergy Verified 09/28/24 18:47 Physical Exam Vitals: Vital Signs Temp Pulse Resp BP Pulse Ox 09/29/24 10:27 95 16 114/60 97 09/29/24 08:26 103 H 22 117/69 95 09/29/24 06:44 98.6 F 101 H 20 113/64 97 09/29/24 03:08 102 H 20 119/73 96 09/29/24 00:51 100 20 116/62 96 09/28/24 16:55 98.6 F 86 16 122/70 100 Intake and Output 09/28/24 09/29/24 09/29/24 22:59 06:59 14:59 Intake Total 74.833 76.937 Output Total 200 Balance -125.167 76.937 Intake: Intake, IV Titration 74.833 76.937 Amount Heparin Sod,Pork in 0.45% 74.833 76.937 NaCl 25,000 unit In 0.45 % NaCl 1 250ml.bag @ 9. 1859 UNITS/KG/HR 10 mls/ hr IV .Q24H [facility] Rx#: [id number] Output: Post Void Residual 200 Other: Weight 108.862 kg PHYSICAL EXAMINATION: Patient is sitting on the side of the bed., no acute distress, awake alert and oriented.. HEENT: Normocephalic. Neck is supple. Pupils reactive. Nostrils clear. Oral cavity is moist. Neck reveals no JVD, carotid bruits, or thyromegaly. CHEST EXAMINATION: Trachea is central. Symmetrical expansion. Bibasilar diminished sounds otherwise lung chavez clear to auscultation and percussion. CARDIAC: Normal S1, S2 with no gallops. No murmurs ABDOMEN: Soft. Bowel sounds normal. No organomegaly. No abdominal bruits. Extremities: reveal no edema. No clubbing or cyanosis Neurologically awake, alert, oriented x 1-2 able to move all extremities. Mild residual left-sided weakness Skin: No rash or skin lesions. Psychiatric: Coperative. Nonsuicidal Musculoskeletal: No joint swelling or deformity. Normal range of motion. Results CBC & Chem 7: 09/29/24 09:01 09/29/24 08:14 Labs: Abnormal Lab Results - Last 24 Hours (Table) 09/28/24 09/28/24 09/28/24 Range/Units 17:25 17:25 17:25 WBC 13.9 H (3.8-10.6) k/uL RBC (4.30-5.90) m/uL Hgb 10.3 L (13.0-17.5) gm/dL Hct 33.7 L (39.0-53.0) % MCV 78.2 L (80.0-100.0) fL MCH 23.9 L (25.0-35.0) pg MCHC 30.6 L (31.0-37.0) g/dL RDW 16.3 H (11.5-15.5) % Plt Count 146 L (150-450) k/uL Neutrophils # 11.8 H (1.3-7.7) k/uL Lymphocytes # (1.0-4.8) k/uL APTT 20.5 L (22.0-30.0) sec Chloride 110 H (98-107) mmol/L Carbon Dioxide 21 L (22-30) mmol/L BUN 37 H (9-20) mg/dL Creatinine 1.70 H (0.66-1.25) mg/dL Glucose 104 H (74-99) mg/dL Plasma Lactic Acid Glen (0.7-2.0) mmol/L Calcium (8.4-10.2) mg/dL AST 262 H (17-59) U/L Creatine Kinase 3628 H* (55-170) U/L Troponin I (0.000-0.034) ng/mL Albumin 3.4 L (3.5-5.0) g/dL Urine Protein (Negative) Urine Blood (Negative) Ur Leukocyte Esterase (Negative) Urine WBC (0-5) /hpf Urine Bacteria (None) /hpf Hyaline Casts (0-2) /lpf Urine Mucus (None) /hpf Urine Yeast (Budding) (None) /hpf 09/28/24 09/28/24 09/28/24 Range/Units 17:25 17:25 20:22 WBC (3.8-10.6) k/uL RBC (4.30-5.90) m/uL Hgb (13.0-17.5) gm/dL Hct (39.0-53.0) % MCV (80.0-100.0) fL MCH (25.0-35.0) pg MCHC (31.0-37.0) g/dL RDW (11.5-15.5) % Plt Count (150-450) k/uL Neutrophils # (1.3-7.7) k/uL Lymphocytes # (1.0-4.8) k/uL APTT (22.0-30.0) sec Chloride (98-107) mmol/L Carbon Dioxide (22-30) mmol/L BUN (9-20) mg/dL Creatinine (0.66-1.25) mg/dL Glucose (74-99) mg/dL Plasma Lactic Acid Glen 3.0 H* 2.5 H* (0.7-2.0) mmol/L Calcium (8.4-10.2) mg/dL AST (17-59) U/L Creatine Kinase (55-170) U/L Troponin I 32.000 H* (0.000-0.034) ng/mL Albumin (3.5-5.0) g/dL Urine Protein (Negative) Urine Blood (Negative) Ur Leukocyte Esterase (Negative) Urine WBC (0-5) /hpf Urine Bacteria (None) /hpf Hyaline Casts (0-2) /lpf Urine Mucus (None) /hpf Urine Yeast (Budding) (None) /hpf 09/28/24 09/29/24 09/29/24 Range/Units 23:46 03:32 08:14 WBC (3.8-10.6) k/uL RBC (4.30-5.90) m/uL Hgb (13.0-17.5) gm/dL Hct (39.0-53.0) % MCV (80.0-100.0) fL MCH (25.0-35.0) pg MCHC (31.0-37.0) g/dL RDW (11.5-15.5) % Plt Count (150-450) k/uL Neutrophils # (1.3-7.7) k/uL Lymphocytes # (1.0-4.8) k/uL APTT (22.0-30.0) sec Chloride 109 H (98-107) mmol/L Carbon Dioxide 21 L (22-30) mmol/L BUN 39 H (9-20) mg/dL Creatinine 1.59 H (0.66-1.25) mg/dL Glucose 117 H (74-99) mg/dL Plasma Lactic Acid Glen 2.5 H* (0.7-2.0) mmol/L Calcium 8.2 L (8.4-10.2) mg/dL AST (17-59) U/L Creatine Kinase 1579 H* (55-170) U/L Troponin I (0.000-0.034) ng/mL Albumin (3.5-5.0) g/dL Urine Protein Trace H (Negative) Urine Blood Moderate H (Negative) Ur Leukocyte Esterase Moderate H (Negative) Urine WBC 36 H (0-5) /hpf Urine Bacteria Rare H (None) /hpf Hyaline Casts 5 H (0-2) /lpf Urine Mucus Few H (None) /hpf Urine Yeast (Budding) Occasional H (None) /hpf 09/29/24 09/29/24 09/29/24 Range/Units 08:14 09:01 09:01 WBC 12.9 H (3.8-10.6) k/uL RBC 4.06 L (4.30-5.90) m/uL Hgb 9.7 L (13.0-17.5) gm/dL Hct 32.5 L (39.0-53.0) % MCV (80.0-100.0) fL MCH 23.8 L (25.0-35.0) pg MCHC 29.7 L (31.0-37.0) g/dL RDW 16.5 H (11.5-15.5) % Plt Count 126 L (150-450) k/uL Neutrophils # 11.1 H (1.3-7.7) k/uL Lymphocytes # 0.8 L (1.0-4.8) k/uL APTT 36.1 H (22.0-30.0) sec Chloride (98-107) mmol/L Carbon Dioxide (22-30) mmol/L BUN (9-20) mg/dL Creatinine (0.66-1.25) mg/dL Glucose (74-99) mg/dL Plasma Lactic Acid Glen (0.7-2.0) mmol/L Calcium (8.4-10.2) mg/dL AST (17-59) U/L Creatine Kinase (55-170) U/L Troponin I 24.200 H* (0.000-0.034) ng/mL Albumin (3.5-5.0) g/dL Urine Protein (Negative) Urine Blood (Negative) Ur Leukocyte Esterase (Negative) Urine WBC (0-5) /hpf Urine Bacteria (None) /hpf Hyaline Casts (0-2) /lpf Urine Mucus (None) /hpf Urine Yeast (Budding) (None) /hpf Thrombosis Risk Factor Assmnt - DVT/VTE Prophylaxis DVT/VTE Prophylaxis: Pharmacologic Prophylaxis ordered Assessment and Plan Assessment: Status post fall and laying on the ground for a prolonged time Acute rhabdomyolysis Possible urinary tract infection Acute kidney injury likely vasomotor nephropathy and also rhabdomyolysis. Elevated troponin possible NSTEMI CAD with stent placement of RCA and PDA in 2021 History of CVA in 1992 with left-sided weakness uses walker Microcytic anemia Hypertension Hyperlipidemia History of [place] Osteoarthritis Prior history of smoking History of back surgery Hearing disorder/deafness GI prophylaxis with Pepcid DVT prophylaxis patient is already on heparin drip Plan: Patient will be continued on IV hydration with normal saline. Continue with daily monitoring. Started on heparin drip and cardiology was consulted. 2D echocardiogram was ordered. Patient was started on antibiotics in the form of ceftriaxone and follow-up urine culture. Continue with breathing treatments and pain management and follow-up closely. PT OT will be consulted. Prognosis is guarded at this time. Time with Patient: Greater than 30
[2024-09-30 04:13] VITALS: TEMP 97.6
[2024-09-30 07:27] LABS: Anisocytosis Slight; Basophils % (A) 1 %; Eosinophils % (A) 0 %; HCT 34.3 % (39.0-53.0); HGB 9.4 gm/dL (13.0-17.5); Hypochromasia Marked; Lymphocytes # (A) 0.7 k/uL (1.0-4.8); Lymphocytes % (A) 10 %; MCH 23.9 pg (25.0-35.0); MCHC 27.4 g/dL (31.0-37.0); MCV 87.4 fL (80.0-100.0); Mean Platelet Volume 9.7; Monocytes # (A) 0.2 k/uL (0-1.0); Monocytes % (A) 4 %; Neutrophils # (A) 5.4 k/uL (1.3-7.7); Neutrophils % (A) 84 %; Platelet Count 110 k/uL (150-450); RBC 3.92 m/uL (4.30-5.90); RDW 16.5 % (11.5-15.5); WBC 6.4 k/uL (3.8-10.6)
[2024-09-30 07:48] LABS: African American GFR (CKD) 52 (>60 ml/min/1.73 sqM); Anion Gap 7 mmol/L; Blood Urea Nitrogen 41 mg/dL (9-20); Calcium 8.1 mg/dL (8.4-10.2); Carbon Dioxide 18 mmol/L (22-30); Chloride 113 mmol/L (98-107); Creatine Kinase 692 U/L (55-170); Glucose 135 mg/dL (74-99); Non-African American GFR(CKD) 45 (>60 ml/min/1.73 sqM); Sodium 138 mmol/L (137-145)
--- NOTE | 2024-09-30 08:09 | XR ---
EXAMINATION TYPE: XR chest 1V portable DATE OF EXAM: 09/30/2024 7:17 AM COMPARISON: 09/28/2024 CLINICAL INDICATION: Male, 84 years old with shortness of breath, history of margaret, , FINDINGS: Heart upper limits of normal in size. Interstitial density may be slightly worsened. No consolidation or pleural effusion. IMPRESSION: Interval mild worsening in interstitial density bilaterally. [facility], , 09/30/2024 8:07 AM
[2024-09-30] MEDS: FAMOTIDINE 20 MG TAB PO SCH (08:36)
[2024-09-30 08:52] VITALS: RESP 16
[2024-09-30] MEDS: IPRATROPIUM-ALBUTEROL 3 ML NEB INHALATION SCH (09:18)
[2024-09-30 10:52] LABS: % Iron Saturation 4.27 (15.00-50.00); Iron 15 UG/DL (65-175); Total Iron Binding Capacity 351 UG/DL (228-460)
[2024-09-30] MEDS: HEPARIN SODIUM,PORCINE 5,000 UNIT/ML 1 ML VIAL SQ SCH (12:14)
[2024-09-30 12:16] VITALS: BP 102/51
[2024-09-30 12:23] VITALS: PULSE 80
--- NOTE | 2024-09-30 12:26 | P.PN ---
Subjective HISTORY OF PRESENT ILLNESS: This is a 84-year-old male with a past medical history significant for coronary artery disease with previous PCI of the RCA, hypertension, hyperlipidemia, asthma, asymptomatic pauses, CVA, and former nicotine dependence. Patient follows in the office with Dr. Kerr. We have been asked to see the patient in consultation for elevated troponins. Patient examined at the bedside in the emergency room. The patient sustained a mechanical fall at home. He laid on the floor for an unknown amount of time. He was eventually found after well for check was completed by police. The patient states he is having generalized pain all over his body. He denies any chest pain or pressure. Denies any shortness of breath. The patient was found to have elevated troponins and was started on IV heparin. DIAGNOSTICS: - EKG reveals sinus mechanism with ST depression in inferior leads and V2V6 - Chest xray retrocardiac opacity suspicious for atelectasis or pneumonia - Laboratory data: WBC 13.9. Hemoglobin 10.3. Platelet count 146. Sodium 141. Potassium 3.8. BUN 37. Creatinine 1.70. Lactic acid 2.5. Creatinine kinase 3628. Troponin 32. proBNP 6490. - Current home cardiac medications include Imdur dose unknown, Plavix 75 mg daily, Lipitor 40 mg daily - Most recent echocardiogram obtained in the office in June 2024 revealed ejection fraction 55%, mild LVH, trace aortic regurgitation, mild aortic stenos is, mild mitral regurgitation, mild tricuspid regurgitation - Patient underwent low-level treadmill exercise stress test in August 2022 which was negative for ischemia - Cardiac catheterization history: August 2022 revealing 80% proximal RCA, 50% mid to distal RCA, 80% proximal PDA stenosis. Patient underwent PCI of the proximal to mid RCA with 2 overlapping drug-eluting stents. Patient also u nderwent PCI of the PDA with 1 drug-eluting stent. 09/30/2024 Patient examined this morning the bedside. Patient denies chest pain or pressure. He denies shortness of breath. Vital signs are stable. Echocardiogram completed revealing ejection fraction 40 to 45%, anterior apical and septal apical hypokinesis. Moderate pulmonary hypertension, mild aortic stenosis, mild TR, and mild MR. PHYSICAL EXAM: VITAL SIGNS: Reviewed. GENERAL: Well-developed in no acute distress. HEENT: Head is normocephalic. Pupils are equal, round. Sclerae anicteric. Mucous membranes of the mouth are moist. Neck supple. No JVD or thyromegaly LUNGS: Respirations even and unlabored. Lungs essentially clear to auscultation bilaterally. HEART: Regular rate and rhythm. S1 and S2 heard. Systolic murmur noted. ABDOMEN: Soft. Nondistended. Nontender. EXTREMITIES: Normal range of motion. No clubbing or cyanosis. Peripheral pulses intact. No lower extremity edema NEUROLOGIC: Awake and alert. Oriented x 3. ASSESSMENT: Status post fall Rhabdomyolysis Non-STEMI Coronary artery disease with previous PCI of the RCA and PDA, 08/2022 Rennick kidney disease Mild aortic stenosis Hypertension Hyperlipidemia History of asthma History of asymptomatic pauses History of CVA Former nicotine dependence PLAN: Continue IV heparin. Begin subcu heparin Continue with medical management at this time. No plans for cardiac catheterization per Dr. Ferreira No further inpatient recommendations from a cardiac standpoint We will follow on an as-needed basis. Please call with questions or concerns. Nurse practitioner note has been reviewed by physician. Signing provider agrees with the documented findings, assessment, and plan of care documented by RN INTERVENTIONAL as a scribe. Objective - Vital Signs Vital signs: Vital Signs Temp 97.6 F 09/30/24 04:00 Pulse 76 09/30/24 12:12 Resp 16 09/30/24 12:00 BP 102/51 09/30/24 12:00 Pulse Ox 99 09/30/24 12:00 FiO2 Intake & Output 09/29/24 09/30/24 09/30/24 18:59 06:59 18:59 Intake Total 289.905 490 Output Total 400 Balance 289.905 -400 490 Weight 108.862 kg 92.5 kg Intake: Intake, IV Titration 171.905 250 Amount Heparin Sod,Pork in 0.45% 171.905 250 NaCl 25,000 unit In 0.45 % NaCl 1 250ml.bag @ 9. 1859 UNITS/KG/HR 10 mls/ hr IV .Q24H [facility] Rx#: [id number] Oral 118 240 Output: Urine 400 Other: Voiding Method External Catheter External Catheter External Catheter - Labs CBC & Chem 7: 09/30/24 06:37 09/30/24 06:37 Labs: Abnormal Lab Results - Last 24 Hours (Table) 09/29/24 09/29/24 09/30/24 Range/Units 12:17 15:40 06:37 RBC 3.92 L (4.30-5.90) m/uL Hgb 9.4 L (13.0-17.5) gm/dL Hct 34.3 L (39.0-53.0) % MCH 23.9 L (25.0-35.0) pg MCHC 27.4 L (31.0-37.0) g/dL RDW 16.5 H (11.5-15.5) % Plt Count 110 L (150-450) k/uL Lymphocytes # 0.7 L (1.0-4.8) k/uL APTT 45.7 H (22.0-30.0) sec Chloride (98-107) mmol/L Carbon Dioxide (22-30) mmol/L BUN (9-20) mg/dL Creatinine (0.66-1.25) mg/dL Glucose (74-99) mg/dL Calcium (8.4-10.2) mg/dL Iron (65-175) UG/DL % Saturation (15.00-50.00) Creatine Kinase (55-170) U/L Troponin I 23.800 H* (0.000-0.034) ng/mL 09/30/24 09/30/24 Range/Units 06:37 06:37 RBC (4.30-5.90) m/uL Hgb (13.0-17.5) gm/dL Hct (39.0-53.0) % MCH (25.0-35.0) pg MCHC (31.0-37.0) g/dL RDW (11.5-15.5) % Plt Count (150-450) k/uL Lymphocytes # (1.0-4.8) k/uL APTT 46.0 H (22.0-30.0) sec Chloride 113 H (98-107) mmol/L Carbon Dioxide 18 L (22-30) mmol/L BUN 41 H (9-20) mg/dL Creatinine 1.44 H (0.66-1.25) mg/dL Glucose 135 H (74-99) mg/dL Calcium 8.1 L (8.4-10.2) mg/dL Iron 15 L (65-175) UG/DL % Saturation 4.27 L (15.00-50.00) Creatine Kinase 692 H (55-170) U/L Troponin I (0.000-0.034) ng/mL
[2024-09-30] MEDS: SODIUM FERRIC GLUCONAT-SUCROSE 125 MG in SODIUM CHLORIDE 0.9% 100 ML IVPB ONE (14:21)
--- NOTE | 2024-10-04 22:26 | P.DS ---
Providers Date of admission: 09/28/24 20:18 Expected date of discharge: 09/30/24 Attending physician: Joan Edwards Primary care physician: Mark Mitchell Hospital Course: Discharge diagnosis Status post fall and laying on the ground for a prolonged time Acute rhabdomyolysis secondary to above. Acute diarrhea due to Campylobacter jejuni as per stool culture. Acute kidney injury likely vasomotor nephropathy and also rhabdomyolysis. Improved. Elevated troponin possible NSTEMI. Was on heparin drip. Cardiology recommends medical management. 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 Hospital course Patient is a 84-year-old male with known history of coronary artery disease with stent placement, history of CVA minimal left-sided weakness uses walker, hearing disorder/deafness, asthma, hypertension, hyperlipidemia, osteoarthritis, prior history of smoking. Patient presents to ER status post fall. Patient states that he was walking to the bathroom and Saturday night and took a fall with his walker. Denied any hitting his head. Patient was unable to stand up and laid on the floor until Saturday morning when the [employer] came to his house., Which is around 4 PM. When they could not get hold of him they had never selected a welfare check was occurred by police and the patient was found on the ground. EMS was called. Otherwise patient was awake and oriented. Denied any injuries from the fall. Hip states that he was too weak to stand up. Denied any chest pain or shortness of breath. No abdominal pain. Patient has been having loose stools recently. Denied any leg weakness. No complaints of headache. No palpitations. No leg swelling. Chest x-ray on admission showed retrocardiac opacity suspicious for atelectasis or pneumonia in the appropriate clinical setting. Pelvic x-ray showed no acute osseous pathology. CT head and cervical spine showed no acute intracranial process. No acute fracture or traumatic subluxation of the cervical spine. Soft tissue mass in the superficial left neck soft tissues measuring 2.9 x 0.8 cm recommend clinical correlation with direct visualization. EKG showed ectopic atrial rhythm. Laboratory data showed WBC 13.9, hemoglobin 10.3 MCV 78.2 and platelets 146 sodium 141 potassium 3.8 chloride 110 bicarb is 21 BUN 37 creatinine 1.7 and blood sugar 104 lactic acid 3.0 AST 262 ALT 44 alk phos 102 and CK level 3628 and troponin 32.0 and proBNP 6490 albumin 3.0 stool for occult blood is negative and CT of is negative. 09/30/2024 Patient is sitting on the side of the bed. Awake alert and oriented. No complaints of chest pain or shortness of breath. Patient is tolerating oral diet. Denied any dizziness or lightheadedness. No cough or sputum production. CPK level is much improved. Patient was continued on IV hydration. No headache. 2D echocardiogram showed ejection fraction 40 to 45%, anterior apical and septal apical hypokinesis. Moderate pulmonary hypertension, mild aortic stenosis, mild TR and mild MR. IV heparin has been discontinued. Cardiology recommends to continue with medical management. Heparin drip has been discontinued. Otherwise patient would like to be discharged home. Diarrhea is also much improved. Stool culture showed Campylobacter jejuni. Patient was counseled regarding hygienic food handling. Laboratory data showed WBC 6.4 hemoglobin 9.4 and platelets 110. Patient is found to be in iron deficiency. Was given IV iron infusion. Other laboratory showed BUN 41 and creatinine 1.44 B12 folate within normal limits. Procalcitonin level is 0.43 PHYSICAL EXAMINATION: Patient is sitting on the side of the bed., no acute distress, awake alert and oriented.. HEENT: Normocephalic. Neck is supple. Pupils reactive. Nostrils clear. Oral cavity is moist. Neck reveals no JVD, carotid bruits, or thyromegaly. CHEST EXAMINATION: Trachea is central. Symmetrical expansion. lung chavez clear to auscultation and percussion. CARDIAC: Normal S1, S2 with no gallops. No murmurs ABDOMEN: Soft. Bowel sounds normal. No organomegaly. No abdominal bruits. Extremities: reveal no edema. No clubbing or cyanosis Neurologically awake, alert, oriented x 2 able to move all extremities. Mild residual left-sided weakness Skin: No rash or skin lesions. Psychiatric: Coperative. Nonsuicidal Musculoskeletal: No joint swelling or deformity. Normal range of motion. Vital signs: Vital Signs Temp 97.6 F 09/30/24 04:00 Pulse 76 09/30/24 12:12 Resp 16 09/30/24 12:00 BP 102/51 09/30/24 12:00 Pulse Ox 99 09/30/24 12:00 FiO2 Intake & Output 09/29/24 09/30/24 09/30/24 18:59 06:59 18:59 Intake Total 289.905 490 Output Total 400 Balance 289.905 -400 490 Weight 108.862 kg 92.5 kg Intake: Intake, IV Titration 171.905 250 Amount Heparin Sod,Pork in 0.45% 171.905 250 NaCl 25,000 unit In 0.45 % NaCl 1 250ml.bag @ 9. 1859 UNITS/KG/HR 10 mls/ hr IV .Q24H TEO Rx#: [id number] Oral 118 240 Output: Urine 400 Other: Voiding Method External Catheter External Catheter External Catheter Total time taken greater than 35 minutes including 18 minutes for counseling and coordination of care. Patient Condition at Discharge: Stable Plan - Discharge Summary Discharge Rx Participant: No New Discharge Prescriptions: New Aspirin 81 mg PO DAILY #30 tab Ferrous Sulfate [Feosol] 325 mg PO DAILY #30 tab Metoprolol Tartrate [Lopressor] 12.5 mg PO BID #60 tab Continue Atorvastatin [Lipitor] 40 mg PO DAILY #90 tab Nitroglycerin Sl Tabs [Nitrostat] 0.4 mg SUBLINGUAL Q5M PRN PRN Reason: Chest Pain Clopidogrel [Plavix] 75 mg PO DAILY Discontinued Isosorbide Mononitrate ER [Imdur] 60 mg PO DAILY Discharge Medication List Atorvastatin [Lipitor] 40 mg PO DAILY #90 tab 07/23/22 [Rx] Clopidogrel [Plavix] 75 mg PO DAILY 08/14/22 [History] Nitroglycerin Sl Tabs [Nitrostat] 0.4 mg SUBLINGUAL Q5M PRN 09/28/24 [History] Aspirin 81 mg PO DAILY #30 tab 09/30/24 [Rx] Ferrous Sulfate [Feosol] 325 mg PO DAILY #30 tab 09/30/24 [Rx] Metoprolol Tartrate [Lopressor] 12.5 mg PO BID #60 tab 09/30/24 [Rx] Follow up Appointment(s)/Referral(s): Mark Mitchell MD [Primary Care Provider] - 1-2 days Discharge Disposition: HOME WITH HOME HEALTH SERVICES
== END 2024-09-30 17:23 | disposition home health service (06) | DRG 280 ==
LOC: EC 16:49 → 3SCARD 20:18
PROVIDERS: ADMIT Hospitalist; ATTEND Hospitalist
DX: I21.4 Non-ST elevation (NSTEMI) myocardial infarction (principal); N17.0 Acute kidney failure with tubular necrosis; I69.354 Hemiplegia and hemiparesis following cerebral infarction affecting left non-dominant side; A04.5 Campylobacter enteritis; T79.6XXA Traumatic ischemia of muscle, initial encounter; I25.10 Atherosclerotic heart disease of native coronary artery without angina pectoris; D50.9 Iron deficiency anemia, unspecified; I25.2 Old myocardial infarction; J45.909 Unspecified asthma, uncomplicated; I10 Essential (primary) hypertension; E78.5 Hyperlipidemia, unspecified; M19.90 Unspecified osteoarthritis, unspecified site; I35.0 Nonrheumatic aortic (valve) stenosis; I27.20 Pulmonary hypertension, unspecified; Z87.891 Personal history of nicotine dependence; H91.90 Unspecified hearing loss, unspecified ear; Z95.5 Presence of coronary angioplasty implant and graft; W19.XXXA Unspecified fall, initial encounter; Z79.02 Long term (current) use of antithrombotics/antiplatelets; Z79.899 Other long term (current) drug therapy; Z85.820 Personal history of malignant melanoma of skin; Z85.828 Personal history of other malignant neoplasm of skin; Y92.099 Unspecified place in other non-institutional residence as the place of occurrence of the external cause; Z86.14 Personal history of Methicillin resistant Staphylococcus aureus infection; Z87.19 Personal history of other diseases of the digestive system
CPT/HCPCS: 36415; 51798; 70450; 71045; 71046; 72125; 72170; 80048; 80053; 81001; 82272; 82550; 82607; 82747; 83540; 83550; 83605; 83735; 83880; 84145; 84484; 85025; 85610; 85730; 87045; 87046; 87077; 87086; 87186; 87324; 93005; 93306; 94640; 96365; 96366; 96368; 99285

== ENCOUNTER 2025-01-06 08:31 | Inpatient (IN) | payer MEDICARE ==
--- NOTE | 2025-01-06 08:52 | ED ---
General Adult HPI - General Stated complaint: GI bleed Time Seen by Provider: 01/06/25 08:33 Source: patient, EMS, RN notes reviewed Mode of arrival: EMS Limitations: no limitations - History of Present Illness Initial comments: Patient is an 84-year-old male present to the emergency department with concern for GI bleed. Patient states he had a large bowel movement today and has concern for blood. Patient states overall he feels well at this time. Patient admits to having mild nausea and mild abdominal discomfort. Patient denies history of similar symptoms previously. Patient believes he is on a blood thinner however is unclear which 1. Chart review reveals patient previously on Plavix. No vomiting. - Related Data Home Medications Medication Instructions Recorded Confirmed Clopidogrel [Plavix] 75 mg PO DAILY 08/14/22 01/06/25 Nitroglycerin Sl Tabs [Nitrostat] 0.4 mg SUBLINGUAL Q5M PRN 09/28/24 01/06/25 Isosorbide Mononitrate ER [Imdur] 60 mg PO DAILY 01/06/25 01/06/25 Previous Rx's Medication Instructions Recorded Atorvastatin [Lipitor] 40 mg PO DAILY #90 tab 07/23/22 Aspirin 81 mg PO DAILY #30 tab 09/30/24 Ferrous Sulfate [Feosol] 325 mg PO DAILY #30 tab 09/30/24 Allergies Allergy/AdvReac Type Severity Reaction Status Date / Time No Known Allergies Allergy Verified 01/06/25 09:06 Review of Systems ROS Statement: Those systems with pertinent positive or pertinent negative responses have been documented in the HPI. ROS Other: All systems not noted in ROS Statement are negative. Constitutional: Denies: fever Eyes: Denies: eye pain ENT: Denies: ear pain Respiratory: Denies: dyspnea Cardiovascular: Denies: chest pain Endocrine: Denies: fatigue Gastrointestinal: Reports: as per HPI, melena, hematochezia Genitourinary: Denies: dysuria Musculoskeletal: Denies: back pain Skin: Denies: rash Neurological: Denies: weakness Past Medical History Past Medical History: Asthma, Cancer, CVA/TIA, Hearing Disorder / Deafness, Hyperlipidemia, Hypertension, Myocardial Infarction ([place]), Osteoarthritis (OA) Additional Past Medical History / Comment(s): CVA 1992-left side weakness- uses walker, past wound on lower left leg- treated at [facility] wound center, past venous leg ulcers, melanoma back and basal skin cancer L shoulder, URINATES FREQUENTLY, Last Myocardial Infarction Date:: 2008 History of Any Multi-Drug Resistant Organisms: MRSA Date of last positivie culture/infection: 10/04/18 MDRO Source:: Left First Toe Past Surgical History: Appendectomy, Back Surgery, Heart Catheterization, Hernia Repair, Orthopedic Surgery Additional Past Surgical History / Comment(s): 05/01/16 Wide excision melanoma back, excision lesion L shoulder basal cancer. Other surgical hx: DEBRIDEMENT OF LEFT CALF/LEG, umbilical hernia repair, lumbar spine surgery Past Anesthesia/Blood Transfusion Reactions: No Reported Reaction Date of Last Stent Placement:: 2021 Past Psychological History: No Psychological Hx Reported Smoking Status: Former smoker Past Alcohol Use History: None Reported Past Drug Use History: None Reported - Past Family History Mother History Unknown: Yes Father History Unknown: Yes General Exam Limitations: no limitations General appearance: alert, in no apparent distress Head exam: Present: normocephalic Eye exam: Present: normal appearance, other (Pale conjunctiva) Neck exam: Present: normal inspection Respiratory exam: Present: normal lung sounds bilaterally Cardiovascular Exam: Present: tachycardia GI/Abdominal exam: Present: soft. Absent: distended, tenderness, guarding, rebound, rigid Rectal exam: Present: black stool Extremities exam: Present: normal inspection Neurological exam: Present: alert Psychiatric exam: Present: normal affect, normal mood Skin exam: Present: pallor Course Vital Signs 01/06/25 01/06/25 01/06/25 08:33 08:50 09:03 Pulse Rate 112 H 106 H 103 H Respiratory 18 18 20 Rate Blood Pressure 83/61 73/48 72/45 O2 Sat by Pulse 100 100 Oximetry 01/06/25 01/06/25 01/06/25 09:19 09:24 09:38 Pulse Rate 101 H 99 101 H Respiratory 20 26 H 20 Rate Blood Pressure 84/50 77/55 77/55 O2 Sat by Pulse 100 100 96 Oximetry EKG Findings - EKG Results: EKG: interpreted by ERMD (Nonspecific ST-T), sinus rhythm, normal axis, normal QRS EKG shows: tachycardia Medical Decision Making - Medical Decision Making Was pt. sent in by a medical professional or institution (, PA, POLICE INVESTIGATOR, urgent care, hospital, or fdc...) When possible be specific @ -No Did you speak to anyone other than the patient for history (EMS, parent, family, police, friend...)? What history was obtained from this source @ -EMS provides history of blood loss on the scene Did you review nursing and triage notes (agree or disagree)? Why? @ -I reviewed and agree with nursing and triage notes Were old charts reviewed (outside hosp., previous admission, EMS record, old EKG, old radiological studies, urgent care reports/EKG's, fdc records)? Report findings @ -Previous admission reviewed Differential Diagnosis (chest pain, altered mental status, abdominal pain women, abdominal pain men, vaginal bleeding, weakness, fever, dyspnea, syncope, headache, dizziness, GI bleed, back pain, seizure, CVA, palpatations, mental health, musculoskeletal)? @ -Differential GI Bleed: Esophageal varices, aortoenteric fistula, Yolande-Vanessa, gastritis, peptic ulcer disease, diverticulosis, inflammatory bowel disease, hemorrhoids, fissure, colitis, malignancy, Meckel's diverticulum, this is not meant to be an all- inclusive list. EKG interpreted by me (3pts min.). @ -As above X-rays interpreted by me (1pt min.). @ -None done CT interpreted by me (1pt min.). @ -None done U/S interpreted by me (1pt. min.). @ -None done What testing was considered but not performed or refused? (CT, X-rays, U/S, labs)? Why? @ -Consider CT angiogram however patient has poor renal function and hopefully will be going to endoscopy soon. What meds were considered but not given or refused? Why? @ -None Did you discuss the management of the patient with other professionals (professionals i.e. DrTrinity, PA, POLICE INVESTIGATOR, lab, RT, psych nurse, psychosocial rehabilitation counselor, artificial stone applicator, teacher, chief growth officer, case supervisor)? Give summary @ -Case discussed with Dr. Owens at 9:15 AM who will come evaluate. Case also discussed with Dr. David san who will admit covering Dr. Camacho. Case also discussed with Dr. Phillips who will come evaluate patient in consult for critical care. Was smoking cessation discussed for >3mins.? @ -No Was critical care preformed (if so, how long)? @ -33 minutes critical care time Were there social determinants of health that impacted care today? How? (Homelessness, low income, unemployed, alcoholism, drug addiction, transportation, low edu. Level, literacy, decrease access to med. care, half-way, rehab)? @ -No Was there de-escalation of care discussed even if they declined (Discuss DNR or withdrawal of care, Hospice)? DNR status @ -No What co-morbidities impacted this encounter? (DM, HTN, Smoking, COPD, CAD, Cancer, CVA, ARF, Chemo, Hep., AIDS, mental health diagnosis, sleep apnea, morbid obesity)? @ -Patient on Plavix Was patient admitted / discharged? Hospital course, mention meds given and route, prescriptions, significant lab abnormalities, going to OR and other pertinent info. @ -Patient presents with lower GI hemorrhage. Patient is pale and hypotensive. Blood transfusion ordered. DDAVP and platelet transfusion ordered for reversal of Plavix. Patient will be admitted. ICU called. Admission orders written. Patient updated. GI has been notified and will come evaluate patient. Undiagnosed new problem with uncertain prognosis? @ -No Drug Therapy requiring intensive monitoring for toxicity (Heparin, Nitro, Insulin, Cardizem)? @ -DDAVP, platelet and blood transfusion Were any procedures done? @ -No Diagnosis/symptom? @ -Lower GI hemorrhage Acute, or Chronic, or Acute on Chronic? @ -Acute Uncomplicated (without systemic symptoms) or Complicated (systemic symptoms)? @ -Default Side effects of treatment? @ -No Exacerbation, Progression, or Severe Exacerbation? @ -No Poses a threat to life or bodily function? How? (Chest pain, [place], [place], pneumonia, PE, COPD, DKA, ARF, appy, cholecystitis, CVA, Diverticulitis, Homicidal, Suicidal, threat to staff... and all critical care pts) @ -Threat for blood loss - Lab Data Result diagrams: 01/06/25 08:51 01/06/25 08:51 Lab Results 01/06/25 01/06/25 01/06/25 Range/Units 08:51 08:51 08:51 WBC 12.5 H (3.8-10.6) k/uL RBC 2.57 L (4.30-5.90) m/uL Hgb 5.7 L* (13.0-17.5) gm/dL Hct 20.1 L (39.0-53.0) % MCV 78.1 L (80.0-100.0) fL MCH 22.1 L (25.0-35.0) pg MCHC 28.3 L (31.0-37.0) g/dL RDW 16.9 H (11.5-15.5) % Plt Count 227 (150-450) k/uL MPV 8.0 Neutrophils % 84 % Lymphocytes % 9 % Monocytes % 6 % Eosinophils % 0 % Basophils % 0 % Neutrophils # 10.4 H (1.3-7.7) k/uL Lymphocytes # 1.1 (1.0-4.8) k/uL Monocytes # 0.7 (0-1.0) k/uL Eosinophils # 0.0 (0-0.7) k/uL Basophils # 0.0 (0-0.2) k/uL Hypochromasia Marked Poikilocytosis Slight Anisocytosis Slight Microcytosis Slight PT 14.0 H (10.0-12.5) sec INR 1.3 H (<1.2) APTT 20.9 L (22.0-30.0) sec Sodium 139 (137-145) mmol/L Potassium 5.4 H (3.5-5.1) mmol/L Chloride 107 (98-107) mmol/L Carbon Dioxide 12 L (22-30) mmol/L Anion Gap 20 mmol/L BUN 51 H (9-20) mg/dL Creatinine 2.03 H (0.66-1.25) mg/dL Est GFR (CKD-EPI)AfAm 34 (>60 ml/min/1.73 sqM) Est GFR (CKD-EPI)NonAf 30 (>60 ml/min/1.73 sqM) Glucose 123 H (74-99) mg/dL Calcium 8.1 L (8.4-10.2) mg/dL Total Bilirubin 0.6 (0.2-1.3) mg/dL AST 33 (17-59) U/L ALT 27 (4-49) U/L Alkaline Phosphatase 106 (38-126) U/L Total Protein 6.3 (6.3-8.2) g/dL Albumin 2.8 L (3.5-5.0) g/dL Blood Type Blood Type Confirm Blood Type Recheck Bld Type Recheck Status Antibody Screen Crossmatch Transfuse Platelets Spec Expiration Date 01/06/25 01/06/25 01/06/25 Range/Units 08:51 08:57 09:10 WBC (3.8-10.6) k/uL RBC (4.30-5.90) m/uL Hgb (13.0-17.5) gm/dL Hct (39.0-53.0) % MCV (80.0-100.0) fL MCH (25.0-35.0) pg MCHC (31.0-37.0) g/dL RDW (11.5-15.5) % Plt Count (150-450) k/uL MPV Neutrophils % % Lymphocytes % % Monocytes % % Eosinophils % % Basophils % % Neutrophils # (1.3-7.7) k/uL Lymphocytes # (1.0-4.8) k/uL Monocytes # (0-1.0) k/uL Eosinophils # (0-0.7) k/uL Basophils # (0-0.2) k/uL Hypochromasia Poikilocytosis Anisocytosis Microcytosis PT (10.0-12.5) sec INR (<1.2) APTT (22.0-30.0) sec Sodium (137-145) mmol/L Potassium (3.5-5.1) mmol/L Chloride (98-107) mmol/L Carbon Dioxide (22-30) mmol/L Anion Gap mmol/L BUN (9-20) mg/dL Creatinine (0.66-1.25) mg/dL Est GFR (CKD-EPI)AfAm (>60 ml/min/1.73 sqM) Est GFR (CKD-EPI)NonAf (>60 ml/min/1.73 sqM) Glucose (74-99) mg/dL Calcium (8.4-10.2) mg/dL Total Bilirubin (0.2-1.3) mg/dL AST (17-59) U/L ALT (4-49) U/L Alkaline Phosphatase (38-126) U/L Total Protein (6.3-8.2) g/dL Albumin (3.5-5.0) g/dL Blood Type B Negative Blood Type Confirm B Negative Blood Type Recheck No Previous Record Bld Type Recheck Status CABO Indicated Antibody Screen NEGATIVE Crossmatch See Detail Transfuse Platelets 01/06/25 Spec Expiration Date 01/09/20257 Critical Care Time Critical Care Time: Yes Total Critical Care Time: 33 Disposition Clinical Impression: Lower gastrointestinal hemorrhage Disposition: ADMITTED IP TO THIS [facility] Condition: Critical Is patient prescribed a controlled substance at d/c from ED?: No Referrals: Mark Mitchell MD [STAFF PHYSICIAN] - 1-2 days Time of Disposition: 09:48 Decision Time: 09:15
[2025-01-06] MEDS: PANTOPRAZOLE 40 MG/10 ML VIAL IVP STA ×2 (08:57→08:58)
[2025-01-06] MEDS: SODIUM CHLORIDE 0.9% 1,000 ML IV STA ×2 (09:02→12:48)
[2025-01-06 09:04] LABS: Anisocytosis Slight; Basophils % (A) 0 %; Eosinophils % (A) 0 %; HCT 20.1 % (39.0-53.0); Hypochromasia Marked; Lymphocytes # (A) 1.1 k/uL (1.0-4.8); Lymphocytes % (A) 9 %; MCH 22.1 pg (25.0-35.0); MCHC 28.3 g/dL (31.0-37.0); MCV 78.1 fL (80.0-100.0); Microcytosis Slight; Monocytes # (A) 0.7 k/uL (0-1.0); Monocytes % (A) 6 %; Neutrophils # (A) 10.4 k/uL (1.3-7.7); Neutrophils % (A) 84 %; Platelet Count 227 k/uL (150-450); Poikilocytosis Slight; RBC 2.57 m/uL (4.30-5.90); RDW 16.9 % (11.5-15.5); WBC 12.5 k/uL (3.8-10.6)
[2025-01-06] MEDS ORDERED: NALOXONE 0.4 MG/ML 1 ML VIAL IV PRN (09:17)
[2025-01-06 09:21] LABS: INR 1.3 (<1.2)
[2025-01-06 09:23] LABS: HGB 5.7 gm/dL (13.0-17.5)
[2025-01-06 09:26] LABS: Partial Thromboplastin Time 20.9 sec (22.0-30.0)
[2025-01-06 09:28] LABS: AST 33 U/L (17-59); African American GFR (CKD) 34 (>60 ml/min/1.73 sqM); Albumin 2.8 g/dL (3.5-5.0); Alkaline Phosphatase 106 U/L (38-126); Anion Gap 20 mmol/L; Blood Urea Nitrogen 51 mg/dL (9-20); Calcium 8.1 mg/dL (8.4-10.2); Carbon Dioxide 12 mmol/L (22-30); Chloride 107 mmol/L (98-107); Glucose 123 mg/dL (74-99); Non-African American GFR(CKD) 30 (>60 ml/min/1.73 sqM); Potassium 5.4 mmol/L (3.5-5.1); Sodium 139 mmol/L (137-145); Total Bilirubin 0.6 mg/dL (0.2-1.3); Total Protein 6.3 g/dL (6.3-8.2)
[2025-01-06] MEDS: DESMOPRESSIN ACETATE 28 MCG in SODIUM CHLORIDE 0.9% 50 ML IVPB ONE (09:41)
[2025-01-06 09:46] LABS: ALT 27 U/L (4-49)
--- NOTE | 2025-01-06 10:28 | XR ---
EXAMINATION TYPE: XR chest 1V portable DATE OF EXAM: 01/06/2025 10:24 AM COMPARISON: Chest radiographs from 09/30/2024 TECHNIQUE: XR chest 1V portable Portable AP radiograph of the chest. CLINICAL INDICATION:Male, 84 years old with history of SOb; FINDINGS: Lungs/Pleura: No pneumothorax. Development of a small left pleural effusion with left basilar airspac e opacities. Diffuse interstitial prominence Heart/mediastinum: Cardiomediastinal silhouette is unremarkable. Atherosclerotic calcifications are seen in the aorta. Musculoskeletal: No acute osseous pathology. IMPRESSION: 1. Development of a small left pleural effusion with left basilar opacities which may represent atel ectasis versus pneumonia. 2. Diffuse interstitial prominence. [facility], , 01/06/2025 10:26 AM
--- NOTE | 2025-01-06 10:41 | P.CONS ---
History of Present Illness - Reason for Consult Consult date: 01/06/25 GI hemorrhage Requesting physician: Live Mason - Chief Complaint Lower GI bleed - History of Present Illness This a pleasant 84-year-old male with a history of hard of hearing, coronary artery disease , kidney disease, asthma, CVA, hyperlipidemia, hypertension, myocardial infarction, obesity and melanoma who was brought in by EMS for multiple large maroon-colored stool. Patient states he woke up around 12:30 at night having some shortness of breath he then again woke up around 330 he felt the urge to have a bowel movement and states it just "exploded" patient states he lives alone and called EMS eventually to come bring him to the emergency department. Patient takes aspirin and Plavix last taken yesterday. Denies any previous history of GI bleed. Denies any history of peptic ulcer disease, GERD and no previous history of upper endoscopy or colonoscopy. EMS reported patient had about 2 L of blood loss between at the house and on the right into the emergency department. Patient had another large maroon-colored bloody bowel movement in the emergency department. He was hypotensive and pale on admission he is status post 2 units of blood, unit of platelets and 1 unit of FFP infusing. He currently denies any abdominal pain, no nausea or vomiting. Patient states he had no abdominal pain during the bowel movement. Admitting labs WBC 12.5 hemoglobin 5.7 hematocrit 28 platelet count 227,000 INR 1.3 sodium 139 potassium 5.4 BUN 51 creatinine 2.03 LFTs unremarkable. Review of Systems REVIEW OF SYSTEMS: CARDIOPULMONARY: No chest pain positive shortness of breath. Gastrointestinal: No abdominal pain. No nausea or vomiting. No hematemesis, coffee-ground emesis. Large amount of maroon-colored stool. MUSCULOSKELETAL: Reports normal range of motion. SKIN: No rashes. No jaundice. ENDOCRINE: No chills, fevers. No excessive weight gain or loss. No polydipsia or polyuria. PSYCHIATRIC: Unremarkable. NEUROLOGY: No change in mental status. Denies dizziness, headache. ENT: Vision unremarkable. Hard of hearing. Large growth on left side of neck CONSTITUTIONAL: No recent weight loss. No fever, chills, night sweats. Past Medical History Past Medical History: Asthma, Cancer, CVA/TIA, Hearing Disorder / Deafness, Hyperlipidemia, Hypertension, Myocardial Infarction ([place]), Osteoarthritis ([place]) Additional Past Medical History / Comment(s): CVA 1992-left side weakness- uses walker, past wound on lower left leg- treated at [facility] wound center, past venous leg ulcers, melanoma back and basal skin cancer L shoulder, URINATES FREQUENTLY, Last Myocardial Infarction Date:: 2008 History of Any Multi-Drug Resistant Organisms: MRSA Year Discovered:: 10/04/18 MDRO Source:: Left First Toe Past Surgical History: Appendectomy, Back Surgery, Heart Catheterization, Hernia Repair, Orthopedic Surgery Additional Past Surgical History / Comment(s): 05/01/16 Wide excision melanoma back, excision lesion L shoulder basal cancer. Other surgical hx: DEBRIDEMENT OF LEFT CALF/LEG, umbilical hernia repair, lumbar spine surgery Past Anesthesia/Blood Transfusion Reactions: No Reported Reaction Date of Last Stent Placement:: 2021 Past Psychological History: No Psychological Hx Reported Smoking Status: Former smoker Past Alcohol Use History: None Reported Past Drug Use History: None Reported - Past Family History Mother History Unknown: Yes Father History Unknown: Yes Medications and Allergies Home Medications Medication Instructions Recorded Confirmed Type Atorvastatin [Lipitor] 40 mg PO DAILY #90 tab 07/23/22 01/06/25 Rx Clopidogrel [Plavix] 75 mg PO DAILY 08/14/22 01/06/25 History Nitroglycerin Sl Tabs [Nitrostat] 0.4 mg SUBLINGUAL Q5M PRN 09/28/24 01/06/25 History Aspirin 81 mg PO DAILY #30 tab 09/30/24 01/06/25 Rx Ferrous Sulfate [Feosol] 325 mg PO DAILY #30 tab 09/30/24 01/06/25 Rx Isosorbide Mononitrate ER [Imdur] 60 mg PO DAILY 01/06/25 01/06/25 History Allergies Allergy/AdvReac Type Severity Reaction Status Date / Time No Known Allergies Allergy Verified 01/06/25 09:06 Physical Exam Vitals: Vital Signs Pulse Resp BP Pulse Ox 01/06/25 10:14 102 H 18 91/59 100 01/06/25 10:00 101 H 18 78/68 01/06/25 09:48 98 20 79/51 100 01/06/25 09:38 101 H 20 77/55 96 01/06/25 09:24 99 26 H 77/55 100 01/06/25 09:19 101 H 20 84/50 100 01/06/25 09:03 103 H 20 72/45 01/06/25 08:50 106 H 18 73/48 100 01/06/25 08:33 112 H 18 83/61 100 Intake and Output 01/05/25 01/06/25 01/06/25 22:59 06:59 14:59 Intake Total 887 Balance 887 Intake: Blood Product 887 Ffp 24 Pher Acda Cnt1 0 Unit [id number] Platelet Pheresis Pas 267 Psoralen Unit [id number] Rc As-1 Unit 310 [id number] Rc Irr As1 Unit 310 [id number] Other: Weight 97.522 kg General appearance: The patient is alert, oriented, appears in no acute distress. Pale. HET: Head is normocephalic and atraumatic. Conjunctiva pink. Sclera anicteric. Neck: Supple.Trachea midline. Left side of neck with large growth. Heart: Regular. Lungs: Equal expansion, tachypneic. Abdomen: Soft, nontender, nondistended. Skin: No rashes. No jaundice. Extremities: Normal skin color and turgor. Neurological: No focal deficits. Alert and oriented x3. Results CBC & Chem 7: 01/06/25 08:51 01/06/25 08:51 Labs: Abnormal Lab Results - Last 24 Hours (Table) 01/06/25 01/06/25 01/06/25 Range/Units 08:51 08:51 08:51 WBC 12.5 H (3.8-10.6) k/uL RBC 2.57 L (4.30-5.90) m/uL Hgb 5.7 L* (13.0-17.5) gm/dL Hct 20.1 L (39.0-53.0) % MCV 78.1 L (80.0-100.0) fL MCH 22.1 L (25.0-35.0) pg MCHC 28.3 L (31.0-37.0) g/dL RDW 16.9 H (11.5-15.5) % Neutrophils # 10.4 H (1.3-7.7) k/uL PT 14.0 H (10.0-12.5) sec INR 1.3 H (<1.2) APTT 20.9 L (22.0-30.0) sec Potassium 5.4 H (3.5-5.1) mmol/L Carbon Dioxide 12 L (22-30) mmol/L BUN 51 H (9-20) mg/dL Creatinine 2.03 H (0.66-1.25) mg/dL Glucose 123 H (74-99) mg/dL Calcium 8.1 L (8.4-10.2) mg/dL Albumin 2.8 L (3.5-5.0) g/dL Crossmatch 01/06/25 Range/Units 08:51 WBC (3.8-10.6) k/uL RBC (4.30-5.90) m/uL Hgb (13.0-17.5) gm/dL Hct (39.0-53.0) % MCV (80.0-100.0) fL MCH (25.0-35.0) pg MCHC (31.0-37.0) g/dL RDW (11.5-15.5) % Neutrophils # (1.3-7.7) k/uL PT (10.0-12.5) sec INR (<1.2) APTT (22.0-30.0) sec Potassium (3.5-5.1) mmol/L Carbon Dioxide (22-30) mmol/L BUN (9-20) mg/dL Creatinine (0.66-1.25) mg/dL Glucose (74-99) mg/dL Calcium (8.4-10.2) mg/dL Albumin (3.5-5.0) g/dL Crossmatch See Detail Assessment and Plan (1) GI bleed Narrative/Plan: 84-year-old male presenting to the emergency department after having several large maroon-colored stools which she states are painless. No previous history of GI bleed. History of coronary artery disease on aspirin and Plavix but no anticoagulation. No prior EGD or colonoscopy. Unclear etiology of GI hemorrhage. Patient has symptomatic anemia and is hypotensive with planned adm ission to the ICU. Continue with resuscitative measures and will plan for upper endoscopy today. Current Visit: Yes Status: Acute Code(s): K92.2 - GASTROINTESTINAL HEMORRHAGE, UNSPECIFIED SNOMED Code(s): 04136775 (2) Coronary artery disease Current Visit: Yes Status: Acute Code(s): I25.10 - ATHSCL HEART DISEASE OF [place] CORONARY ARTERY W/O ANG PCTRS SNOMED Code(s): 22999586 (3) Acute blood loss anemia Current Visit: Yes Status: Acute Code(s): D62 - ACUTE POSTHEMORRHAGIC ANEMIA SNOMED Code(s): 702897483 (4) Chronic kidney disease Current Visit: Yes Status: Acute Code(s): N18.9 - CHRONIC KIDNEY DISEASE, UNSPECIFIED SNOMED Code(s): 119812833 (5) Hypotension Current Visit: Yes Status: Acute Code(s): I95.9 - HYPOTENSION, UNSPECIFIED SNOMED Code(s): 70823758 Plan: 1. Continue supportive resuscitative measures with blood, FFP and platelets as ordered 2. CBC every 4 hours, transfuse for hemoglobin less than 7 3. Protonix 40 mg daily for GI prophylaxis 4. Hold aspirin and Plavix 5. Keep n.p.o. 6. Plan for upper endoscopy 7. Rest of medical management per ICU backroom associate 8. Further recommendations forthcoming based on clinical course Thank you for this consultation, we will continue to follow closely. Dr. Gayle Zaldivar I agree with the dictator's note, documented as a scribe by Adry Kelly.
[2025-01-06] MEDS ORDERED: PROPOFOL 10 MG/ML 20 ML VIAL IV ONE (11:31)
[2025-01-06] MEDS ORDERED: LIDOCAINE 1% INJ 10MG/ML (20 ML MDV) ONE (11:31)
--- NOTE | 2025-01-06 11:48 | P.PCN ---
Date of Procedure: 01/06/25 Procedure(s) Performed: BRIEF HISTORY: Patient is a 84-year-old, pleasant, white male came to the emergency room this morning after having multiple subsequent episodes of brown- colored stool. Apparently had approximately 2 L of maroon-colored stool at home earlier this morning and another large episode of black-colored stool in the ER. Initial hemoglobin was 5.7 g/dL. He denies any abdominal pain. No recent NSAID use. He scheduled for an upper endoscopy for possible upper GI source of bleeding. PROCEDURE PERFORMED: Esophagogastroduodenoscopy. PREOPERATIVE DIAGNOSIS: Acute severe GI bleed. IV sedation per anesthesia. PROCEDURE: After informed consent was obtained, the patient was brought into the endoscopy unit. IV sedation was administered by Anesthesia under continuous monitoring. Initially the Olympus GIF-140 video endoscope was inserted into the mouth. Esophagus intubated without any difficulty. It was gradually advanced into the stomach and duodenum and carefully examined. The bulb mild duodenitis and the second part of the duodenum appeared normal. The scope at this time was withdrawn to the stomach, adequately insufflated with air, and upon careful examination, mucosa of the antrum, body, cardia and the fundus appeared normal. There was large amount of food noted in the stomach. The scope was then withdrawn into the esophagus. Small hiatal hernia. The GE junction was located at 39 cm from the incisors. The esophagus appeared normal. There were no erosions or ulcerations seen and the patient tolerated the procedure well. IMPRESSION: 1. Retained food in the stomach. 2. No evidence of active upper GI bleed 3. Mild duodenitis 4. Small hiatal hernia. RECOMMENDATIONS: The findings of this examination were discussed with the patient . He will be scheduled for a tagged RBC scan to localize the site of bleeding. In the meantime continue with blood products and fresh frozen plasma. Continue Protonix 40 mg twice daily. Possible colonoscopy later today or tomorrow based on the tagged RBC scan results. In the meantime we will obtain surgical consultation.
--- NOTE | 2025-01-06 12:09 | P.CNPUL ---
History of Present Illness Consult date: 01/06/25 Requesting physician: Mark Mitchell Reason for consult: other Chief complaint: ICU management, GI bleed. History of present illness: Pulmonary consult dated January 06, 2025. 84-year-old male who presented to the emergency department, at 8:30 in the morning, on January 06, with a lower GI bleed. The patient was initially evaluated by Dr. Mason. He is 1 who called me. The patient came in via EMS, with a large bloody bowel movement, and, was evaluated in the ER, and was also complaining of nausea, and abdominal discomfort. The patient's initial hemoglobin was only 5.7. The patient received DDAVP, Protonix, saline resuscitation, 2 units of PRBCs, 2 units of fresh frozen plasma, and 1 unit of platelets. He is currently on 3 L. The GI doctor was called, and plans to do a scope on this patient. The patient is seen in room 1, in the emergency department. White count 12.5, hemoglobin 5.7, hematocrit 20.1, and platelet count 3-27,000. PT 14, INR 1.3, PTT 20.9. Sodium 139, potassium 5.4, chlorides 107, CO2 12, anion gap 20, BUN 51, creatinine 2.03. Glucose is 123. Calcium is 8.1. Chest x-ray shows a small left-sided pleural effusion. Dr. Zaldivar performed an EGD, which revealed retained food in the stomach, no evidence of active upper GI bleed, mild duodenitis, and small hiatal hernia. Review of Systems REVIEW OF SYSTEMS: CONSTITUTIONAL: [Negative.] NEUROLOGIC: [ Negative.] HEENT: [ Negative.] CARDIAC: [Negative.] PULMONARY: [Negative.] GI: Nausea, abdominal pain, and bleeding from the rectum. : [Negative.] RHEUMATOLOGIC: [ Negative.] IMMUNOLOGIC: [ Negative.] ENDOCRINE: [Negative. ] DERMATOLOGIC: [Negative.] Past Medical History Past Medical History: Asthma, Cancer, CVA/TIA, Hearing Disorder / Deafness, Hyperlipidemia, Hypertension, Myocardial Infarction ([place]), Osteoarthritis ([place]) Additional Past Medical History / Comment(s): CVA 1992-left side weakness- uses walker, past wound on lower left leg- treated at [facility], past venous leg ulcers, melanoma back and basal skin cancer L shoulder, URINATES FREQUENTLY, Last Myocardial Infarction Date:: 2008 History of Any Multi-Drug Resistant Organisms: MRSA Date of last positivie culture/infection: 10/04/18 MDRO Source:: Left First Toe Past Surgical History: Appendectomy, Back Surgery, Heart Catheterization, Hernia Repair, Orthopedic Surgery Additional Past Surgical History / Comment(s): 05/01/16 Wide excision melanoma back, excision lesion L shoulder basal cancer. Other surgical hx: DEBRIDEMENT OF LEFT CALF/LEG, umbilical hernia repair, lumbar spine surgery Past Anesthesia/Blood Transfusion Reactions: No Reported Reaction Date of Last Stent Placement:: 2021 Past Psychological History: No Psychological Hx Reported Smoking Status: Former smoker Past Alcohol Use History: None Reported Past Drug Use History: None Reported - Past Family History Mother History Unknown: Yes Father History Unknown: Yes Medications and Allergies Home Medications Medication Instructions Recorded Confirmed Type Atorvastatin [Lipitor] 40 mg PO DAILY #90 tab 07/23/22 01/06/25 Rx Clopidogrel [Plavix] 75 mg PO DAILY 08/14/22 01/06/25 History Nitroglycerin Sl Tabs [Nitrostat] 0.4 mg SUBLINGUAL Q5M PRN 09/28/24 01/06/25 History Aspirin 81 mg PO DAILY #30 tab 09/30/24 01/06/25 Rx Ferrous Sulfate [Feosol] 325 mg PO DAILY #30 tab 09/30/24 01/06/25 Rx Isosorbide Mononitrate ER [Imdur] 60 mg PO DAILY 01/06/25 01/06/25 History Allergies Allergy/AdvReac Type Severity Reaction Status Date / Time No Known Allergies Allergy Verified 01/06/25 09:06 Physical Exam Osteopathic Statement: *. No significant issues noted on an osteopathic structural exam other than those noted in the History and Physical/Consult. Vitals: Vital Signs Temp Pulse Resp BP Pulse Ox 01/06/25 11:34 104 H 18 96/61 96 01/06/25 11:28 104 H 20 80/56 100 01/06/25 11:12 101 H 18 82/54 100 01/06/25 11:06 101 H 20 73/43 100 01/06/25 11:00 98 18 75/48 100 01/06/25 10:48 101 H 18 79/58 100 01/06/25 10:42 102 H 20 80/51 100 03/05/25 10:35 100 18 83/46 100 01/06/25 10:29 97.2 F L 101 H 20 73/60 98 01/06/25 10:14 102 H 18 91/59 100 01/06/25 10:00 101 H 18 78/68 01/06/25 09:48 98 20 79/51 100 01/06/25 09:38 101 H 20 77/55 96 01/06/25 09:24 99 26 H 77/55 100 01/06/25 09:19 101 H 20 84/50 100 01/06/25 09:03 103 H 20 72/45 01/06/25 08:50 106 H 18 73/48 100 01/06/25 08:33 98 F 112 H 18 83/61 100 Intake and Output 01/05/25 01/06/25 01/06/25 22:59 06:59 14:59 Intake Total 1092 Balance 1092 Intake: Blood Product 1092 Ffp 24 Pher Acda Cnt1 0 Unit [id number] Ffp 24 Pher Acda Cnt1 205 Unit [id number] Platelet Pheresis Pas 267 Psoralen Unit [id number] Rc As-1 Unit 310 [id number] Rc Irr As1 Unit 310 [id number] Rc Pheresis 2 As3 Unit 0 [id number] Other: Weight 97.522 kg No acute distress, oriented 3. The patient is currently on a couple liters of oxygen. He is very pale. HEENT examination is grossly unremarkable. Mucous membranes are moist. No oral lesions. Neck supple. Full range of motion. No adenopathy thyromegaly or neck vein distention. Cardiovascular examination reveals regular rhythm rate. S1-S2 normal. No S3 or S4. No discernible murmur noted. Lungs reveal clear breath sounds. Breath sounds are equal bilaterally. No adventitious lung sounds including wheezes rhonchi or crackles. Abdomen soft bowel sounds are heard. No masses or tenderness. Dried blood is noted in the area of the groin, over his lower abdomen, scrotum, and penis. Extremities are intact. No cyanosis clubbing or edema. Skin is without rash or lesion. Neurologic examination is brief but nonfocal. Results - Laboratory Findings CBC and BMP: 01/06/25 08:51 01/06/25 08:51 PT/INR, D-dimer PT 14.0 sec (10.0-12.5) H 01/06/25 08:51 INR 1.3 (<1.2) H 01/06/25 08:51 Abnormal lab findings: Abnormal Labs 01/06/25 01/06/25 01/06/25 08:51 08:51 08:51 WBC 12.5 H RBC 2.57 L Hgb 5.7 L* Hct 20.1 L MCV 78.1 L MCH 22.1 L MCHC 28.3 L RDW 16.9 H Neutrophils # 10.4 H PT 14.0 H INR 1.3 H APTT 20.9 L Potassium 5.4 H Carbon Dioxide 12 L BUN 51 H Creatinine 2.03 H Glucose 123 H Calcium 8.1 L Albumin 2.8 L Crossmatch 01/06/25 08:51 WBC RBC Hgb Hct MCV MCH MCHC RDW Neutrophils # PT INR APTT Potassium Carbon Dioxide BUN Creatinine Glucose Calcium Albumin Crossmatch See Detail - Diagnostic Findings Chest x-ray: image reviewed Assessment and Plan Assessment: Acute lower GI bleed, with severe anemia. History of previous myocardial infarction. History of asthma. History of CVA. History of hyperlipidemia. History of hypertension. History of melanoma. History of osteoarthritis. Plan: Plan dated January 06, 2025. The patient was seen in the emergency department, room #1. The patient presented via the EMS, with lower GI bleed. He was having bright red bleeding per rectum. The patient's initial hemoglobin was 5.7. He was seen by Dr. Mason in the emergency department, and received 2 units of PRBCs, 2 units of fresh frozen plasma, and 1 unit of platelets. In addition, the patient received DDAVP, Protonix, saline at 130 cc an hour, and nasal O2 at 3 L. The patient will be admitted to the intensive care unit, for further monitoring and management. The patient had an EGD by Dr. Zaldivar which did not show any active GI bleeding. We will continue to follow make recommendations along the way. Prognosis is guarded. Frequent hemoglobin checks. Hemodynamic status is stable. Time with Patient: Greater than 30
[2025-01-06 12:33] LABS: Glucose,Whole Blood 115 mg/dL (70-110)
[2025-01-06 13:12] LABS: Anisocytosis Slight; HCT 26.2 % (39.0-53.0); Hypochromasia Marked; MCH 23.3 pg (25.0-35.0); MCHC 28.4 g/dL (31.0-37.0); MCV 81.9 fL (80.0-100.0); Mean Platelet Volume 8.3; Platelet Count 198 k/uL (150-450); Poikilocytosis Slight; RBC 3.19 m/uL (4.30-5.90); RDW 16.7 % (11.5-15.5); WBC 21.6 k/uL (3.8-10.6)
--- NOTE | 2025-01-06 13:12 | P.GSCN ---
History of Present Illness Consult date: 01/06/25 History of present illness: CHIEF COMPLAINT: GI bleed HISTORY OF PRESENT ILLNESS: This is a 84-year-old male who presented to the hospital with an acute GI bleed. Patient had large maroon-colored stools that started 12:30 at night. He called EMS. He had a 2 to 3 L bloody bowel movement in transit to the ER. He had another 400 mL maroon stool while in the ER. Hem oglobin is 5.7. He does take Plavix at home. The patient has received 3 units of packed red blood cells, 2 units FFP, 1 unit of platelets and DDAVP to reverse the Plavix. Has also received 2 to 3 L of fluids. He was hypotensive and tachycardic in the ER. Vital have shown some improvement. He does appear short of breath and requiring 4 L of oxygen. Now he currently has some mild discomfort in the abdomen.. He had EGD completed with GI service that had reported duodenitis and hiatal hernia and no active bleeding. They have ordered a tagged RBC scan. Patient denies any prior history of colonoscopy or EGD. He does have a medical history of coronary disease, OR, asthma CVA and melanoma. He has a growth on the neck and ear. Patient seen and examined with Dr. Lizarraga PAST MEDICAL HISTORY: See list. PAST SURGICAL HISTORY: See list. MEDICATIONS: See list. ALLERGIES: See list. SOCIAL HISTORY: No illicit drug use. REVIEW OF SYSTEMS: CONSTITUTIONAL: Denies fever or chills. HEENT: Denies blurred vision, vision changes, or eye pain. Denies hemoptysis ENDOCRINE: Denies heat or cold intolerance. CARDIOVASCULAR: Denies chest pain or pressure. RESPIRATORY: No shortness of breath. GASTROINTESTINAL: Please refer to HPI otherwise unremarkable NEURO: Denies history of seizures. PSYCH: No depression or suicidal ideation HEMATOLOGIC: Denies bleeding disorders. LYMPHATIC: The patient denies any lumps and bumps around the neck. GENITOURINARY: Denies any blood in urine or increased urinary frequency. MUSCULOSKELETAL: Denies myalgias. Denies joint swelling. Denies decreased range of motion beyond patients baseline. SKIN: Denies pruitis. Denies rash. PHYSICAL EXAM: VITAL SIGNS: Reviewed GENERAL: no acute distress. Pale HEENT: No sclera icterus. Extraocular movements grossly intact. Moist buccal mucosa. Head is atraumatic, normocephalic. Hears conversational speech. No nasal drainage. NECK: Supple without lymphadenopathy. skin growth on left side of neck and left earlobe CHEST: Non-labored respirations and equal bilateral excursions. CARDIOVASCULAR: Palpable 2+ radial pulses. ABDOMEN: Soft. Mildly distended. Mild discomfort with palpation left lower quadrant. No rebound or guarding noted. No signs of peritonitis MUSCULOSKELETAL: No clubbing or cyanosis. NEUROLOGIC: No focal or lateralizing signs. Cranial nerves II through XII grossly intact. PSYCH: Appropriate affect. Alert and oriented to person, place and time. SKIN: Well perfused. Good skin turgor. LABORATORY DATA: WBCs 12.5 Hgb 5.7 platelets 227 INR 1.3 Sodium 139 potassium 5.4 creatinine 2.03 IMAGING: ASSESSMENT: 1. Acute GI bleed with maroon stools 2. Acute blood loss anemia due to GI bleed 3. Status post EGD revealing duodenitis and gastritis 4. Acute on chronic renal failure 5. History of coronary artery disease and OR on Plavix at home PLAN: -CT scan abdomen and pelvis without contrast ordered for further evaluation of abdominal pain when patient is stable -Follow-up on tagged RBC scan -Continue to medically optimize patient -Continue to monitor hemoglobin -Continue to monitor for any signs or symptoms of bleeding -Continue IV Protonix -Continue to hold Plavix -Keep patient n.p.o. Physician Receptionist Doctor'S Office note has been reviewed by physician. Signing provider agrees with the documented findings, assessment, and plan of care. 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 Other surgical hx: DEBRIDEMENT OF LEFT CALF/LEG, umbilical hernia repair, lumbar spine surgery Past Anesthesia/Blood Transfusion Reactions: No Reported Reaction Date of Last Stent Placement:: 2021 Past Psychological History: No Psychological Hx Reported Smoking Status: Former smoker Past Alcohol Use History: None Reported Past Drug Use History: None Reported - Past Family History Mother History Unknown: Yes Father History Unknown: Yes Medications and Allergies Home Medications Medication Instructions Recorded Confirmed Type Atorvastatin [Lipitor] 40 mg PO DAILY #90 tab 07/23/22 01/06/25 Rx Clopidogrel [Plavix] 75 mg PO DAILY 08/14/22 01/06/25 History Nitroglycerin Sl Tabs [Nitrostat] 0.4 mg SUBLINGUAL Q5M PRN 09/28/24 01/06/25 History Aspirin 81 mg PO DAILY #30 tab 09/30/24 01/06/25 Rx Ferrous Sulfate [Feosol] 325 mg PO DAILY #30 tab 09/30/24 01/06/25 Rx Isosorbide Mononitrate ER [Imdur] 60 mg PO DAILY 01/06/25 01/06/25 History Allergies Allergy/AdvReac Type Severity Reaction Status Date / Time No Known Allergies Allergy Verified 01/06/25 09:06 Surgical - Exam Vital Signs Temp Pulse Resp BP Pulse Ox 98 F 112 H 18 83/61 100 01/06/25 08:33 01/06/25 08:33 01/06/25 08:33 01/06/25 08:33 01/06/25 08:33 Results - Labs 01/06/25 08:51 01/06/25 08:51 Abnormal Lab Results - Last 24 Hours (Table) 01/06/25 01/06/25 01/06/25 Range/Units 08:51 08:51 08:51 WBC 12.5 H (3.8-10.6) k/uL RBC 2.57 L (4.30-5.90) m/uL Hgb 5.7 L* (13.0-17.5) gm/dL Hct 20.1 L (39.0-53.0) % MCV 78.1 L (80.0-100.0) fL MCH 22.1 L (25.0-35.0) pg MCHC 28.3 L (31.0-37.0) g/dL RDW 16.9 H (11.5-15.5) % Neutrophils # 10.4 H (1.3-7.7) k/uL PT 14.0 H (10.0-12.5) sec INR 1.3 H (<1.2) APTT 20.9 L (22.0-30.0) sec Potassium 5.4 H (3.5-5.1) mmol/L Carbon Dioxide 12 L (22-30) mmol/L BUN 51 H (9-20) mg/dL Creatinine 2.03 H (0.66-1.25) mg/dL Glucose 123 H (74-99) mg/dL POC Glucose (mg/dL) (70-110) mg/dL Calcium 8.1 L (8.4-10.2) mg/dL Albumin 2.8 L (3.5-5.0) g/dL Crossmatch 01/06/25 01/06/25 Range/Units 08:51 12:31 WBC (3.8-10.6) k/uL RBC (4.30-5.90) m/uL Hgb (13.0-17.5) gm/dL Hct (39.0-53.0) % MCV (80.0-100.0) fL MCH (25.0-35.0) pg MCHC (31.0-37.0) g/dL RDW (11.5-15.5) % Neutrophils # (1.3-7.7) k/uL PT (10.0-12.5) sec INR (<1.2) APTT (22.0-30.0) sec Potassium (3.5-5.1) mmol/L Carbon Dioxide (22-30) mmol/L BUN (9-20) mg/dL Creatinine (0.66-1.25) mg/dL Glucose (74-99) mg/dL POC Glucose (mg/dL) 115 H (70-110) mg/dL Calcium (8.4-10.2) mg/dL Albumin (3.5-5.0) g/dL Crossmatch See Detail Diabetes panel 01/06/25 Range/Units 08:51 Sodium 139 (137-145) mmol/L Potassium 5.4 H (3.5-5.1) mmol/L Chloride 107 (98-107) mmol/L Carbon Dioxide 12 L (22-30) mmol/L BUN 51 H (9-20) mg/dL Creatinine 2.03 H (0.66-1.25) mg/dL Glucose 123 H (74-99) mg/dL Calcium 8.1 L (8.4-10.2) mg/dL AST 33 (17-59) U/L ALT 27 (4-49) U/L Alkaline Phosphatase 106 (38-126) U/L Total Protein 6.3 (6.3-8.2) g/dL Albumin 2.8 L (3.5-5.0) g/dL Calcium panel 01/06/25 Range/Units 08:51 Calcium 8.1 L (8.4-10.2) mg/dL Albumin 2.8 L (3.5-5.0) g/dL Pituitary panel 01/06/25 Range/Units 08:51 Sodium 139 (137-145) mmol/L Potassium 5.4 H (3.5-5.1) mmol/L Chloride 107 (98-107) mmol/L Carbon Dioxide 12 L (22-30) mmol/L BUN 51 H (9-20) mg/dL Creatinine 2.03 H (0.66-1.25) mg/dL Glucose 123 H (74-99) mg/dL Calcium 8.1 L (8.4-10.2) mg/dL Adrenal panel 01/06/25 Range/Units 08:51 Sodium 139 (137-145) mmol/L Potassium 5.4 H (3.5-5.1) mmol/L Chloride 107 (98-107) mmol/L Carbon Dioxide 12 L (22-30) mmol/L BUN 51 H (9-20) mg/dL Creatinine 2.03 H (0.66-1.25) mg/dL Glucose 123 H (74-99) mg/dL Calcium 8.1 L (8.4-10.2) mg/dL Total Bilirubin 0.6 (0.2-1.3) mg/dL AST 33 (17-59) U/L ALT 27 (4-49) U/L Alkaline Phosphatase 106 (38-126) U/L Total Protein 6.3 (6.3-8.2) g/dL Albumin 2.8 L (3.5-5.0) g/dL
[2025-01-06 13:13] LABS: HGB 7.4 gm/dL (13.0-17.5)
[2025-01-06 13:39] LABS: AST 44 U/L (17-59); African American GFR (CKD) 36 (>60 ml/min/1.73 sqM); Albumin 3.1 g/dL (3.5-5.0); Alkaline Phosphatase 108 U/L (38-126); Anion Gap 17 mmol/L; Blood Urea Nitrogen 50 mg/dL (9-20); Calcium 8.1 mg/dL (8.4-10.2); Carbon Dioxide 15 mmol/L (22-30); Chloride 109 mmol/L (98-107); Glucose 113 mg/dL (74-99); Non-African American GFR(CKD) 31 (>60 ml/min/1.73 sqM); Potassium 5.4 mmol/L (3.5-5.1); Sodium 141 mmol/L (137-145); Total Bilirubin 1.7 mg/dL (0.2-1.3); Total Protein 6.9 g/dL (6.3-8.2)
[2025-01-06 13:47] LABS: ALT 28 U/L (4-49)
[2025-01-06] MEDS: MAGNESIUM SULFATE-D5W PMX 1 GM in DEXTROSE/WATER 1 100ML.BAG IVPB SCH (14:46)
--- NOTE | 2025-01-06 15:01 | P.HPIM ---
History of Present Illness H&P Date: 01/06/25 History of present illness: 89-year-old male patient with past medical history significant for coronary artery disease status post stenting 2021, ischemic cardiomyopathy with a EF 40 to 45%, history of CVA with left-sided residual deficits, hypertension, hyperlipidemia, hard of hearing, history of skin cancer who presented to ER with a complaint of blood in the stools. Patient was brought to the ER by EMS, was noted to have large bloody bowel movement, was complaining of dizziness, also complained of nausea and abdominal discomfort. Patient was afebrile on presentation, was tachycardic and hypotensive, initially was on on room air, later on required supplemental oxygen 2 L after IV fluids. WBCs 12.5, hemoglobin 5.7, came up to 7.4 after 3 units. Platelet 227. INR 1.3. Sodium 139, potassium 5.4, chloride 107, CO2 12, BUN 51, creatinine 2.03, GFR 30. Liver profile unremarkable. Chest x-ray showed small left pleural effusion with left basilar opacities, diffuse interstitial prominence. Assessment and plan: Acute lower GI bleed: Severe anemia: Acute blood loss anemia Hemorrhagic shock: BO on CKD: Suspect prerenal secondary to hypovolemia, hypotension Hyperkalemia: History of CAD/PCI in 2021: Hypertension Hyperlipidemia Hard of hearing History of CVA with left-sided weakness Acute hypoxic respiratory failure Fluid overload: Skin cancer: History of melanoma Osteoarthritis History of asthma Plan Presented with bright red blood in the stools, initial hemoglobin 5.7, received 3 unit of packed RBCs, 2 units of FFP, 1 unit of platelet, DDAVP. Monitor H&H every 6 hour, transfuse for hemoglobin less than 7.0. GI consulted status post EGD showed no active GI bleed. GI and general surgery consulted and following CT abdomen and bleeding scan pending PPI ICU consulted Maintain at least 2 peripheral IVs Monitor vitals closely Hold aspirin and Plavix Hold antihypertensives Monitor renal function, monitor potassium, currently on IV fluids, hold nephro toxin, nephrology consult DVT prophylaxis SCD Monitor vital signs and labs Labs and medication were reviewed. Continue same treatment. Further recommendations as per clinical course of the patient PHYSICAL EXAMINATION: GENERAL: The patient is A&O x3, NAD. Hard of hearing. Ill-appearing. HEENT: EOMI, Sclerae anicteric, Moist Mucous membranes Neck: Supple, Non tender, No JVD PULMONARY: Equal breath souds B/L, No wheezing, No crackles. CARDIOVASCULAR: S1, S2 present. No murmurs, rubs, or gallops. ABDOMEN: Soft, nontender, nondistended, normoactive bowel sounds. No guarding or rebound tenderness. MUSCULOSKELETAL: No edema, No cyanosis. No clubbing. Normal ROM. Intact peripheral pulses. NEUROLOGICAL: CN 2-12 grossly intact. No FND Skin: Left neck skin lesion-malignant appearing REVIEW OF SYSTEMS: CONSTITUTIONAL: Complaining of fatigue and dizziness. Hard of hearing. HEENT: No recent visual problems or hearing problems. Denied any sore throat. CARDIOVASCULAR: No chest pain, orthopnea, PND, no palpitations, no syncope. PULMONARY: No shortness of breath, no cough, no hemoptysis. GASTROINTESTINAL: No diarrhea, no nausea, no vomiting, no abdominal pain. NEUROLOGICAL: No headaches, no weakness, no numbness. GENITOURINARY: Denies any burning micturition, frequency, or urgency. MUSCULOSKELETAL/RHEUMATOLOGICAL: Denies any joint pain, swelling, or any muscle pain. ENDOCRINE: Denies any polyuria or polydipsia. The rest of the 14-point review of systems is negative. Dictation was produced using [employer] dictation software. please excuse any grammatical, word or spelling errors. 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 Other surgical hx: DEBRIDEMENT OF LEFT CALF/LEG, umbilical hernia repair, lumbar spine surgery Past Anesthesia/Blood Transfusion Reactions: No Reported Reaction Date of Last Stent Placement:: 2021 Past Psychological History: No Psychological Hx Reported Smoking Status: Former smoker Past Alcohol Use History: None Reported Past Drug Use History: None Reported - Past Family History Mother History Unknown: Yes Father History Unknown: Yes Medications and Allergies Home Medications Medication Instructions Recorded Confirmed Type Atorvastatin [Lipitor] 40 mg PO DAILY #90 tab 07/23/22 01/06/25 Rx Clopidogrel [Plavix] 75 mg PO DAILY 08/14/22 01/06/25 History Nitroglycerin Sl Tabs [Nitrostat] 0.4 mg SUBLINGUAL Q5M PRN 09/28/24 01/06/25 History Aspirin 81 mg PO DAILY #30 tab 09/30/24 01/06/25 Rx Ferrous Sulfate [Feosol] 325 mg PO DAILY #30 tab 09/30/24 01/06/25 Rx Isosorbide Mononitrate ER [Imdur] 60 mg PO DAILY 01/06/25 01/06/25 History Allergies Allergy/AdvReac Type Severity Reaction Status Date / Time No Known Allergies Allergy Verified 01/06/25 09:06 Physical Exam Vitals: Vital Signs Temp Pulse Resp BP Pulse Ox 01/06/25 14:00 101 H 26 H 90/55 97 01/06/25 13:45 99 29 H 89/42 99 01/06/25 13:30 101 H 25 H 84/53 100 01/06/25 13:15 101 H 34 H 95/51 100 01/06/25 13:00 102 H 28 H 97/58 98 01/06/25 12:45 105 H 25 H 112/89 98 01/06/25 12:30 96.2 F L 105 H 24 90/54 97 01/06/25 12:01 102 H 18 78/54 98 01/06/25 11:34 104 H 18 96/61 96 01/06/25 11:28 104 H 20 80/56 100 01/06/25 11:12 101 H 18 82/54 100 01/06/25 11:06 101 H 20 73/43 100 01/06/25 11:00 98 18 75/48 100 01/06/25 10:48 101 H 18 79/58 100 01/06/25 10:42 96.2 F L 102 H 20 80/51 100 01/06/25 10:35 100 18 83/46 100 01/06/25 10:29 97.2 F L 101 H 20 73/60 98 01/06/25 10:14 102 H 18 91/59 100 01/06/25 10:06 98 22 127/86 99 01/06/25 10:00 101 H 18 78/68 01/06/25 09:48 98 20 79/51 100 01/06/25 09:38 101 H 20 77/55 96 01/06/25 09:24 99 26 H 77/55 100 01/06/25 09:19 101 H 20 84/50 100 01/06/25 09:03 103 H 20 72/45 01/06/25 08:50 106 H 18 73/48 100 01/06/25 08:33 98 F 112 H 18 83/61 100 Intake and Output 01/05/25 01/06/25 01/06/25 22:59 06:59 14:59 Intake Total 1981 Output Total 0 Balance 1981 Intake: IV 390 Sodium Chloride 0.9% 1, 390 000 ml @ 130 mls/hr IV . Q7H42M STA Rx#:[id number] Blood Product 1592 Ffp 24 Pher Acda Cnt1 221 Unit [id number] Ffp 24 Pher Acda Cnt1 205 Unit [id number] Platelet Pheresis Pas 267 Psoralen Unit [id number] Rc As-1 Unit 310 [id number] Rc Irr As1 Unit 310 [id number] Rc Pheresis 2 As3 Unit 279 [id number] Output: Urine 0 Other: Voiding Method Urinal Weight 97.522 kg Results CBC & Chem 7: 01/06/25 11:52 01/06/25 13:05 Labs: Abnormal Lab Results - Last 24 Hours (Table) 01/06/25 01/06/25 01/06/25 Range/Units 08:51 08:51 08:51 WBC 12.5 H (3.8-10.6) k/uL RBC 2.57 L (4.30-5.90) m/uL Hgb 5.7 L* (13.0-17.5) gm/dL Hct 20.1 L (39.0-53.0) % MCV 78.1 L (80.0-100.0) fL MCH 22.1 L (25.0-35.0) pg MCHC 28.3 L (31.0-37.0) g/dL RDW 16.9 H (11.5-15.5) % Neutrophils # 10.4 H (1.3-7.7) k/uL PT 14.0 H (10.0-12.5) sec INR 1.3 H (<1.2) APTT 20.9 L (22.0-30.0) sec Potassium 5.4 H (3.5-5.1) mmol/L Chloride (98-107) mmol/L Carbon Dioxide 12 L (22-30) mmol/L BUN 51 H (9-20) mg/dL Creatinine 2.03 H (0.66-1.25) mg/dL Glucose 123 H (74-99) mg/dL POC Glucose (mg/dL) (70-110) mg/dL Calcium 8.1 L (8.4-10.2) mg/dL Total Bilirubin (0.2-1.3) mg/dL Albumin 2.8 L (3.5-5.0) g/dL Crossmatch 01/06/25 01/06/25 01/06/25 Range/Units 08:51 11:52 12:31 WBC 21.6 H (3.8-10.6) k/uL RBC 3.19 L (4.30-5.90) m/uL Hgb 7.4 L D (13.0-17.5) gm/dL Hct 26.2 L (39.0-53.0) % MCV (80.0-100.0) fL MCH 23.3 L (25.0-35.0) pg MCHC 28.4 L (31.0-37.0) g/dL RDW 16.7 H (11.5-15.5) % Neutrophils # (1.3-7.7) k/uL PT (10.0-12.5) sec INR (<1.2) APTT (22.0-30.0) sec Potassium (3.5-5.1) mmol/L Chloride (98-107) mmol/L Carbon Dioxide (22-30) mmol/L BUN (9-20) mg/dL Creatinine (0.66-1.25) mg/dL Glucose (74-99) mg/dL POC Glucose (mg/dL) 115 H (70-110) mg/dL Calcium (8.4-10.2) mg/dL Total Bilirubin (0.2-1.3) mg/dL Albumin (3.5-5.0) g/dL Crossmatch See Detail 01/06/25 Range/Units 13:05 WBC (3.8-10.6) k/uL RBC (4.30-5.90) m/uL Hgb (13.0-17.5) gm/dL Hct (39.0-53.0) % MCV (80.0-100.0) fL MCH (25.0-35.0) pg MCHC (31.0-37.0) g/dL RDW (11.5-15.5) % Neutrophils # (1.3-7.7) k/uL PT (10.0-12.5) sec INR (<1.2) APTT (22.0-30.0) sec Potassium 5.4 H (3.5-5.1) mmol/L Chloride 109 H (98-107) mmol/L Carbon Dioxide 15 L (22-30) mmol/L BUN 50 H (9-20) mg/dL Creatinine 1.93 H (0.66-1.25) mg/dL Glucose 113 H (74-99) mg/dL POC Glucose (mg/dL) (70-110) mg/dL Calcium 8.1 L (8.4-10.2) mg/dL Total Bilirubin 1.7 H (0.2-1.3) mg/dL Albumin 3.1 L (3.5-5.0) g/dL Crossmatch Thrombosis Risk Factor Assmnt - Choose All That Apply Any of the Below Risk Factors Present?: Yes Each Factor Represents 1 point: Medical pt on bed rest, Obesity (BMI >25) Other Risk Factors: Yes Each Risk Factor Represents 2 Points: Patient confined to bed Each Risk Factor Represents 3 Points: Age 75 years or older Thrombosis Risk Factor Assessment Total Risk Factor Score: 7 Thrombosis Risk Factor Assessment Level: High Risk
[2025-01-06 15:06] LABS: ABG Base Excess -8.9 mmol/L; ABG HCO3 16 mmol/L (21-25); ABG Oxygen Saturation 98.9 % (94-97); ABG PCO2 28 mmHg (35-45); ABG PH 7.36 (7.35-7.45); ABG PO2 110 mmHg (83-108); ABG TCO2 17 mmol/L (19-24)
[2025-01-06 15:09] LABS: Anisocytosis Slight; HCT 25.5 % (39.0-53.0); HGB 7.5 gm/dL (13.0-17.5); Hypochromasia Marked; MCH 23.6 pg (25.0-35.0); MCHC 29.3 g/dL (31.0-37.0); MCV 80.7 fL (80.0-100.0); Mean Platelet Volume 9.7; Platelet Count 166 k/uL (150-450); Poikilocytosis Moderate; RBC 3.16 m/uL (4.30-5.90); RDW 16.8 % (11.5-15.5); WBC 14.7 k/uL (3.8-10.6)
--- NOTE | 2025-01-06 15:09 | XR ---
EXAMINATION TYPE: XR chest 1V DATE OF EXAM: 01/06/2025 3:03 PM COMPARISON: Chest radiographs from 01/06/2025 TECHNIQUE: XR chest 1V Portable AP radiograph of the chest. CLINICAL INDICATION:Male, 84 years old with history of New cardiac symptoms; FINDINGS: Lungs/Pleura: No pneumothorax. Similar small left pleural effusion with left basilar airspace opaciti es. Diffuse interstitial prominence Heart/mediastinum: Cardiomediastinal silhouette is unremarkable. Atherosclerotic calcifications are seen in the aorta. Musculoskeletal: No acute osseous pathology. IMPRESSION: Small left pleural effusion with left basilar opacities and diffuse interstitial prominence. Findings raise concern for developing pulmonary edema. Superimposed infectious process is not excluded. [facility], , 01/06/2025 3:07 PM
[2025-01-06] MEDS: CALCIUM GLUCONATE IN NACL 1 GM in SALINE 1 100ML.BAG IVPB ONE (15:10)
[2025-01-06] MEDS: SODIUM BICARB 8.4% 50 ML SYR (1 MEQ/ML) IV STA (15:21)
[2025-01-06 18:52] LABS: Anisocytosis Slight; HCT 27.7 % (39.0-53.0); HGB 8.3 gm/dL (13.0-17.5); Hypochromasia Marked; MCH 24.7 pg (25.0-35.0); MCHC 29.9 g/dL (31.0-37.0); MCV 82.6 fL (80.0-100.0); Mean Platelet Volume 9.2; Platelet Count 131 k/uL (150-450); Poikilocytosis Marked; RBC 3.35 m/uL (4.30-5.90); WBC 10.2 k/uL (3.8-10.6)
[2025-01-06 19:05] LABS: African American GFR (CKD) 33 (>60 ml/min/1.73 sqM); Anion Gap 14 mmol/L; Blood Urea Nitrogen 56 mg/dL (9-20); Calcium 8.2 mg/dL (8.4-10.2); Carbon Dioxide 17 mmol/L (22-30); Chloride 109 mmol/L (98-107); Glucose 122 mg/dL (74-99); Non-African American GFR(CKD) 29 (>60 ml/min/1.73 sqM); Potassium 5.2 mmol/L (3.5-5.1); Sodium 140 mmol/L (137-145)
[2025-01-06] MEDS: NOREPINEPHRINE 4 MG in SODIUM CHLORIDE 0.9% 250 ML IV SCH (20:23)
[2025-01-06] MEDS: PEG 3350 (236 GM/BTL) + LYTES 4,000 ML BOTTLE PO ONE (20:24)
[2025-01-06] MEDS: MAGNESIUM CITRATE 296 ML BOTTLE PO ONE (20:24)
[2025-01-06] MEDS: PANTOPRAZOLE 40 MG/10 ML VIAL IVP SCH (20:27)
--- NOTE | 2025-01-07 01:01 | CT ---
EXAM: CT Abdomen and Pelvis Without Intravenous Contrast CLINICAL HISTORY: ITS.REASON CT Reason: abdominal pain, GI bleed TECHNIQUE: Axial computed tomography images of the abdomen and pelvis without intravenous contrast. CTDI is 22.4 mGy and DLP is 1410.4 mGy-cm. This CT exam was performed using one or more of the following dose reduction techniques: automated exposure control, adjustment of the mA and/or kV according to patient size, and/or use of iterative reconstruction technique. COMPARISON: No relevant prior studies available. FINDINGS: Lung bases: See below. Pleural space: Moderate bilateral pleural effusions. Dependent airspace consolidations, concerning for multilobar pneumonia. ABDOMEN: Liver: Unremarkable. Gallbladder and bile ducts: Unremarkable. No calcified stones. No ductal dilation. Pancreas: Unremarkable. No ductal dilation. Spleen: Unremarkable. No splenomegaly. Adrenals: Unremarkable. No mass. Kidneys and ureters: Atrophy of the kidneys. No obstructing stones. No hydronephrosis. Stomach and bowel: Dilated small bowel measuring up to 2.7 cm, correlate for enteritis/ileus. No definite bowel obstruction. Diverticulosis, without acute diverticulitis. No small bowel obstruction. No free intraperitoneal air. PELVIS: Appendix: No findings to suggest acute appendicitis. Bladder: Dykes catheter terminates in a decompressed urinary bladder. No stones. Reproductive: Unremarkable as visualized. ABDOMEN and PELVIS: Intraperitoneal space: Abdominal ascites. No free air. Bones/joints: No acute fracture. No dislocation. Soft tissues: Unremarkable. Vasculature: Unremarkable. No abdominal aortic aneurysm. Lymph nodes: Unremarkable. No enlarged lymph nodes. IMPRESSION: 1. Moderate bilateral pleural effusions. Dependent airspace consolidations, concerning for multilobar pneumonia. 2. Abdominal ascites. 3. Dilated small bowel measuring up to 2.7 cm, correlate for enteritis/ileus. No definite bowel obstruction. 4. Atrophy of the kidneys. 5. Dykes catheter terminates in a decompressed urinary bladder. 6. Diverticulosis, without acute diverticulitis. No small bowel obstruction. No free intraperitoneal air.
[2025-01-07 01:08] LABS: Anisocytosis Slight; HCT 26.8 % (39.0-53.0); HGB 8.2 gm/dL (13.0-17.5); Hypochromasia Marked; MCH 24.7 pg (25.0-35.0); MCHC 30.5 g/dL (31.0-37.0); MCV 80.7 fL (80.0-100.0); Mean Platelet Volume 8.9; Microcytosis Slight; Platelet Count 144 k/uL (150-450); Poikilocytosis Marked; RBC 3.32 m/uL (4.30-5.90); RDW 17.4 % (11.5-15.5); WBC 12.9 k/uL (3.8-10.6)
[2025-01-07] MEDS: PEG 3350 (236 GM/BTL) + LYTES 4,000 ML BOTTLE PO ONE (05:12)
[2025-01-07 06:26] LABS: Anisocytosis Slight; Basophils % (A) 0 %; Eosinophils % (A) 0 %; HCT 27.4 % (39.0-53.0); HGB 8.3 gm/dL (13.0-17.5); Hypochromasia Marked; Lymphocytes # (A) 1.1 k/uL (1.0-4.8); Lymphocytes % (A) 9 %; MCHC 30.4 g/dL (31.0-37.0); MCV 82.2 fL (80.0-100.0); Mean Platelet Volume 8.3; Monocytes # (A) 0.8 k/uL (0-1.0); Monocytes % (A) 6 %; Neutrophils # (A) 10.8 k/uL (1.3-7.7); Neutrophils % (A) 83 %; Platelet Count 142 k/uL (150-450); Poikilocytosis Marked; RBC 3.33 m/uL (4.30-5.90); RDW 17.6 % (11.5-15.5)
[2025-01-07 06:47] LABS: ALT 24 U/L (4-49); AST 95 U/L (17-59); African American GFR (CKD) 31 (>60 ml/min/1.73 sqM); Alkaline Phosphatase 99 U/L (38-126); Anion Gap 11 mmol/L; Blood Urea Nitrogen 59 mg/dL (9-20); Calcium 8.4 mg/dL (8.4-10.2); Carbon Dioxide 20 mmol/L (22-30); Chloride 109 mmol/L (98-107); Glucose 108 mg/dL (74-99); Non-African American GFR(CKD) 27 (>60 ml/min/1.73 sqM); Potassium 4.8 mmol/L (3.5-5.1); Sodium 140 mmol/L (137-145); Total Bilirubin 1.4 mg/dL (0.2-1.3); Total Protein 6.7 g/dL (6.3-8.2)
[2025-01-07 07:00] LABS: Anisocytosis Slight; Basophils % (A) 0 %; Eosinophils % (A) 0 %; HCT 28.3 % (39.0-53.0); HGB 8.3 gm/dL (13.0-17.5); Hypochromasia Marked; Lymphocytes % (A) 9 %; MCH 24.2 pg (25.0-35.0); MCHC 29.5 g/dL (31.0-37.0); MCV 82.1 fL (80.0-100.0); Mean Platelet Volume 9.8; Monocytes # (A) 0.8 k/uL (0-1.0); Monocytes % (A) 7 %; Neutrophils % (A) 82 %; Platelet Count 158 k/uL (150-450); Poikilocytosis Marked; RBC 3.44 m/uL (4.30-5.90); RDW 17.6 % (11.5-15.5); WBC 12.1 k/uL (3.8-10.6)
--- NOTE | 2025-01-07 08:51 | XR ---
EXAMINATION TYPE: XR chest 1V portable DATE OF EXAM: 01/07/2025 8:46 AM COMPARISON: Multiple radiographs, with the most recent on 01/06/2025. TECHNIQUE: XR chest 1V portable Portable AP radiograph of the chest. CLINICAL INDICATION:Male, 84 years old with history of fluid overload/wheezes; FINDINGS: Patient is rotated which limits evaluation. Lungs/Pleura: No pneumothorax. Similar small left pleural effusion with left basilar airspace opaciti es. Diffuse interstitial prominence Heart/mediastinum: Cardiomediastinal silhouette is enlarged and stable. Atherosclerotic calcificatio ns are seen in the aorta. Musculoskeletal: No acute osseous pathology. IMPRESSION: Similar small left pleural effusion with left basilar opacities and diffuse interstitial prominence. Correlate for CHF exacerbation/volume overload. [facility], , 01/07/2025 8:49 AM
[2025-01-07] MEDS: FUROSEMIDE 10 MG/ML 4 ML VIAL IV STA (09:51)
[2025-01-07 09:58] LABS: African American GFR (CKD) 31 (>60 ml/min/1.73 sqM); Anion Gap 10 mmol/L; Blood Urea Nitrogen 59 mg/dL (9-20); Calcium 8.1 mg/dL (8.4-10.2); Carbon Dioxide 22 mmol/L (22-30); Chloride 111 mmol/L (98-107); Glucose 106 mg/dL (74-99); Non-African American GFR(CKD) 27 (>60 ml/min/1.73 sqM); Potassium 4.9 mmol/L (3.5-5.1); Sodium 143 mmol/L (137-145)
[2025-01-07 10:08] LABS: NT-Pro-B-Type Natriuretic Pept 11600 pg/mL
[2025-01-07] MEDS: PIPERACILLIN-TAZOBACTAM 3.375 GM in SODIUM CHLORIDE 0.9% 100 ML IVPB SCH ×2 (11:21→19:57)
--- NOTE | 2025-01-07 11:30 | P.PN ---
Subjective Progress Note Date: 01/07/25 CHIEF COMPLAINT: GI bleed HISTORY OF PRESENT ILLNESS: Patient is currently in the ICU. He is on a small dose of Levophed. He is receiving Lasix for pleural effusions. He is scheduled for colonoscopy with GI service today. He has had no further bleeding through the evening or this morning. Hemoglobin stable at 8.3. Patient's respiratory rate is elevated he does appear short of breath. And scheduled for Lasix. WBC 12.1 hemoglobin stable 8.3 platelets 158 sodium is 143 creatinine 2.17 troponin elevated at 16.5 BNP elevated stool for occult blood positive. Patient denies any abdominal pain at this time. CT scan abdomen pelvis reports moderate bilateral pleural effusions. Abdominal ascites. Dilated small bowel 2.7 cm colon loop for enteritis/ileus. No bowel obstruction. Diverticulosis without acute diverticulitis PHYSICAL EXAM: VITAL SIGNS: Reviewed GENERAL: Well-developed in no acute distress. HEENT: No sclera icterus. Extraocular movements grossly intact. Moist buccal mucosa. Head is atraumatic, normocephalic. Hears conversational speech. No nasal drainage. NECK: Supple without lymphadenopathy. Patient has a skin lesion growth on the left side of his neck and left earlobe CHEST: Patient appears short of breath CARDIOVASCULAR: Palpable 2+ radial pulses. ABDOMEN: Soft. Nondistended. Nontender. MUSCULOSKELETAL: No clubbing or cyanosis. NEUROLOGIC: No focal or lateralizing signs. Cranial nerves II through XII grossly intact. PSYCH: Appropriate affect. Alert and oriented to person, place and time. SKIN: Pale ASSESSMENT: 1. Acute GI bleed likely due to a diverticular bleed 2. Acute blood loss anemia status post blood transfusion 3. Status post EGD revealing duodenitis and gastritis 4. Acute on chronic renal failure 5. History of coronary artery disease and AL on Plavix at home 6. History of melanoma PLAN: -Patient scheduled for colonoscopy with GI service today -Continue ICU management -Critical care service has ordered diuretics for fluid overload -Zosyn added for empiric treatment of diverticulitis -Continue IV Protonix -Continue to monitor for any signs or symptoms of bleeding -Continue to monitor hemoglobin -Continue supportive care -Continue to hold Plavix Physician [employer] Mdm Developer note has been reviewed by physician. Signing provider agrees with the documented findings, assessment, and plan of care. Objective - Vital Signs Vital signs: Vital Signs Temp 97.4 F L 03/06/25 08:00 Pulse 92 01/07/25 10:00 Resp 28 H 01/07/25 10:00 BP 98/67 01/07/25 10:00 Pulse Ox 95 01/07/25 10:00 FiO2 30 01/07/25 04:15 Intake & Output 01/06/25 01/07/25 01/07/25 18:59 06:59 18:59 Intake Total 2916 1816.364 763.636 Output Total 160 385 165 Balance 2756 1431.364 598.636 Weight 97.522 kg 112.6 kg Intake: IV 1040 350 40 Sodium Chloride 0.9% 1, 1040 350 40 000 ml @ 130 mls/hr IV . [id number] [facility] Rx#:[id number] Intake, IV Titration 210.364 43.636 Amount Norepinephrine 4 mg In 210.364 43.636 Sodium Chloride 0.9% 250 ml @ 0.03 MCG/KG/MIN 11. 147 mls/hr IV .[id number] [facility] Rx#:[id number] Oral 1256 680 Blood Product 1876 Ffp 24 Pher Acda Cnt1 221 Unit [id number] Ffp 24 Pher Acda Cnt1 205 Unit [id number] Platelet Pheresis Pas 267 Psoralen Unit [id number] Rc As-1 Unit 310 [id number] Rc Irr As1 Unit 310 [id number] Rc Pheresis 2 As3 Unit 279 [id number] Rc Pheresis As-3 Unit 284 [id number] Output: Urine 160 385 165 Other: Voiding Method Urinal Indwelling Catheter # Bowel Movements 1 1 - Labs CBC & Chem 7: 01/07/25 06:37 01/07/25 09:04 Labs: Abnormal Lab Results - Last 24 Hours (Table) 01/06/25 01/06/25 01/06/25 Range/Units 08:51 11:52 12:31 WBC 21.6 H (3.8-10.6) k/uL RBC 3.19 L (4.30-5.90) m/uL Hgb 7.4 L D (13.0-17.5) gm/dL Hct 26.2 L (39.0-53.0) % MCH 23.3 L (25.0-35.0) pg MCHC 28.4 L (31.0-37.0) g/dL RDW 16.7 H (11.5-15.5) % Plt Count (150-450) k/uL Neutrophils # (1.3-7.7) k/uL ABG pCO2 (35-45) mmHg ABG pO2 (83-108) mmHg ABG HCO3 (21-25) mmol/L ABG Total CO2 (19-24) mmol/L ABG O2 Saturation (94-97) % Hemoglobin (13.0-17.5) gm/dL Potassium (3.5-5.1) mmol/L Chloride (98-107) mmol/L Carbon Dioxide (22-30) mmol/L BUN (9-20) mg/dL Creatinine (0.66-1.25) mg/dL Glucose (74-99) mg/dL POC Glucose (mg/dL) 115 H (70-110) mg/dL Plasma Lactic Acid Glen (0.7-2.0) mmol/L Calcium (8.4-10.2) mg/dL Total Bilirubin (0.2-1.3) mg/dL AST (17-59) U/L Troponin I (0.000-0.034) ng/mL Albumin (3.5-5.0) g/dL Crossmatch See Detail 01/06/25 01/06/25 01/06/25 Range/Units 13:05 15:00 15:00 WBC 14.7 H (3.8-10.6) k/uL RBC 3.16 L (4.30-5.90) m/uL Hgb 7.5 L (13.0-17.5) gm/dL Hct 25.5 L (39.0-53.0) % MCH 23.6 L (25.0-35.0) pg MCHC 29.3 L (31.0-37.0) g/dL RDW 16.8 H (11.5-15.5) % Plt Count (150-450) k/uL Neutrophils # (1.3-7.7) k/uL ABG pCO2 (35-45) mmHg ABG pO2 (83-108) mmHg ABG HCO3 (21-25) mmol/L ABG Total CO2 (19-24) mmol/L ABG O2 Saturation (94-97) % Hemoglobin (13.0-17.5) gm/dL Potassium 5.4 H (3.5-5.1) mmol/L Chloride 109 H (98-107) mmol/L Carbon Dioxide 15 L (22-30) mmol/L BUN 50 H (9-20) mg/dL Creatinine 1.93 H (0.66-1.25) mg/dL Glucose 113 H (74-99) mg/dL POC Glucose (mg/dL) (70-110) mg/dL Plasma Lactic Acid Glen 6.4 H* (0.7-2.0) mmol/L Calcium 8.1 L (8.4-10.2) mg/dL Total Bilirubin 1.7 H (0.2-1.3) mg/dL AST (17-59) U/L Troponin I (0.000-0.034) ng/mL Albumin 3.1 L (3.5-5.0) g/dL Crossmatch 01/06/25 01/06/25 01/06/25 Range/Units 15:04 18:30 18:30 WBC (3.8-10.6) k/uL RBC 3.35 L (4.30-5.90) m/uL Hgb 8.3 L (13.0-17.5) gm/dL Hct 27.7 L (39.0-53.0) % MCH 24.7 L (25.0-35.0) pg MCHC 29.9 L (31.0-37.0) g/dL RDW 17.0 H (11.5-15.5) % Plt Count 131 L (150-450) k/uL Neutrophils # (1.3-7.7) k/uL ABG pCO2 28 L (35-45) mmHg ABG pO2 110 H (83-108) mmHg ABG HCO3 16 L (21-25) mmol/L ABG Total CO2 17 L (19-24) mmol/L ABG O2 Saturation 98.9 H (94-97) % Hemoglobin 7.5 L (13.0-17.5) gm/dL Potassium 5.2 H (3.5-5.1) mmol/L Chloride 109 H (98-107) mmol/L Carbon Dioxide 17 L (22-30) mmol/L BUN 56 H (9-20) mg/dL Creatinine 2.08 H (0.66-1.25) mg/dL Glucose 122 H (74-99) mg/dL POC Glucose (mg/dL) (70-110) mg/dL Plasma Lactic Acid Glen (0.7-2.0) mmol/L Calcium 8.2 L (8.4-10.2) mg/dL Total Bilirubin (0.2-1.3) mg/dL AST (17-59) U/L Troponin I (0.000-0.034) ng/mL Albumin (3.5-5.0) g/dL Crossmatch 01/07/25 01/07/25 01/07/25 Range/Units 00:50 05:39 05:39 WBC 12.9 H 13.0 H (3.8-10.6) k/uL RBC 3.32 L 3.33 L (4.30-5.90) m/uL Hgb 8.2 L 8.3 L (13.0-17.5) gm/dL Hct 26.8 L 27.4 L (39.0-53.0) % MCH 24.7 L (25.0-35.0) pg MCHC 30.5 L 30.4 L (31.0-37.0) g/dL RDW 17.4 H 17.6 H (11.5-15.5) % Plt Count 144 L 142 L (150-450) k/uL Neutrophils # 10.8 H (1.3-7.7) k/uL ABG pCO2 (35-45) mmHg ABG pO2 (83-108) mmHg ABG HCO3 (21-25) mmol/L ABG Total CO2 (19-24) mmol/L ABG O2 Saturation (94-97) % Hemoglobin (13.0-17.5) gm/dL Potassium (3.5-5.1) mmol/L Chloride 109 H (98-107) mmol/L Carbon Dioxide 20 L (22-30) mmol/L BUN 59 H (9-20) mg/dL Creatinine 2.18 H (0.66-1.25) mg/dL Glucose 108 H (74-99) mg/dL POC Glucose (mg/dL) (70-110) mg/dL Plasma Lactic Acid Glen (0.7-2.0) mmol/L Calcium (8.4-10.2) mg/dL Total Bilirubin 1.4 H (0.2-1.3) mg/dL AST 95 H (17-59) U/L Troponin I (0.000-0.034) ng/mL Albumin 3.0 L (3.5-5.0) g/dL Crossmatch 01/07/25 01/07/25 01/07/25 Range/Units 06:37 09:04 09:04 WBC 12.1 H (3.8-10.6) k/uL RBC 3.44 L (4.30-5.90) m/uL Hgb 8.3 L (13.0-17.5) gm/dL Hct 28.3 L (39.0-53.0) % MCH 24.2 L (25.0-35.0) pg MCHC 29.5 L (31.0-37.0) g/dL RDW 17.6 H (11.5-15.5) % Plt Count (150-450) k/uL Neutrophils # 10.0 H (1.3-7.7) k/uL ABG pCO2 (35-45) mmHg ABG pO2 (83-108) mmHg ABG HCO3 (21-25) mmol/L ABG Total CO2 (19-24) mmol/L ABG O2 Saturation (94-97) % Hemoglobin (13.0-17.5) gm/dL Potassium (3.5-5.1) mmol/L Chloride 111 H (98-107) mmol/L Carbon Dioxide (22-30) mmol/L BUN 59 H (9-20) mg/dL Creatinine 2.17 H (0.66-1.25) mg/dL Glucose 106 H (74-99) mg/dL POC Glucose (mg/dL) (70-110) mg/dL Plasma Lactic Acid Glen (0.7-2.0) mmol/L Calcium 8.1 L (8.4-10.2) mg/dL Total Bilirubin (0.2-1.3) mg/dL AST (17-59) U/L Troponin I 16.500 H* (0.000-0.034) ng/mL Albumin (3.5-5.0) g/dL Crossmatch
[2025-01-07] MEDS ORDERED: PROPOFOL 10 MG/ML 20 ML VIAL IV ONE (12:18)
[2025-01-07] MEDS ORDERED: PHENYLEPHRINE 10 MG/ML VIAL ONE (12:18)
[2025-01-07] MEDS ORDERED: LIDOCAINE 1% INJ 10MG/ML (20 ML MDV) ONE (12:18)
[2025-01-07] MEDS: IPRATROPIUM-ALBUTEROL 3 ML NEB INHALATION SCH (12:36)
--- NOTE | 2025-01-07 12:49 | P.PN ---
Subjective Progress Note Date: 01/07/25 Principal diagnosis: Gastrointestinal bleed. Pulmonary consult dated January 06, 2025. 84-year-old male who presented to the emergency department, at 8:30 in the morning, on January 06, with a lower GI bleed. The patient was initially evaluated by Dr. aMson. He is 1 who called me. The patient came in via EMS, with a large bloody bowel movement, and, was evaluated in the ER, and was also complaining of nausea, and abdominal discomfort. The patient's initial hemoglobin was only 5.7. The patient received DDAVP, Protonix, saline resuscitation, 2 units of PRBCs, 2 units of fresh frozen plasma, and 1 unit of platelets. He is currently on 3 L. The GI doctor was called, and plans to do a scope on this patient. The patient is seen in room 1, in the emergency department. White count 12.5, hemoglobin 5.7, hematocrit 20.1, and platelet count 3-27,000. PT 14, INR 1.3, PTT 20.9. Sodium 139, potassium 5.4, chlorides 107, CO2 12, anion gap 20, BUN 51, creatinine 2.03. Glucose is 123. Calcium is 8.1. Chest x-ray shows a small left-sided pleural effusion. Dr. Zaldivar performed an EGD, which revealed retained food in the stomach, no evidence of active upper GI bleed, mild duodenitis, and small hiatal hernia. Progress note dated January 07, 2025. 84-year-old male seen yesterday in consultation in the emergency department. The patient was admitted with a diagnosis of lower GI bleed. He did have an EGD, which did not show any active bleeding. He is scheduled for colonoscopy today. Since coming here, he has received 4 units of packed red blood cells, 2 units of fresh frozen plasma, 1 unit of platelets, and DDAVP. He is currently getting norepinephrine at 5 mcg/min, saline at KVO, and nasal O2 at 4 L. He did go on BiPAP for period of time, from 10 PM to 4 AM, with settings of 12/5, and 30%. Today, we will check a BMP, add DuoNebs to his regimen, check a pro calcitonin level, and check troponins. I did talk to the patient about CODE STATUS. White count 12.1, hemoglobin 8.3, hematocrit 28.3, platelet count 158,000. Sodium 143, potassium 4.9, chlorides 111, CO2 22, BUN 59, creatinine 2.17. Leukosis 106. Calcium 8.1. Troponin was 16.5. N-terminal proBNP 11,600. Procalcitonin levels pending. Chest x-ray is consistent with CHF. Objective - Vital Signs Vital signs: Vital Signs Temp 97.9 F 01/07/25 12:00 Pulse 91 01/07/25 12:00 Resp 27 H 01/07/25 12:00 BP 99/56 01/07/25 12:00 Pulse Ox 99 01/07/25 12:00 FiO2 30 01/07/25 12:00 Intake & Output 01/06/25 01/07/25 01/07/25 18:59 06:59 18:59 Intake Total 2916 1816.364 824.955 Output Total 160 385 840 Balance 2756 1431.364 -15.045 Weight 97.522 kg 112.6 kg Intake: IV 1040 350 75 Piperacillin-Tazobactam 3 25 .375 gm In Sodium Chloride 0.9% 100 ml @ 25 mls/hr IVPB Q12HR [facility] Rx #:[id number] Sodium Chloride 0.9% 1, 1040 350 50 000 ml @ 130 mls/hr IV . Q7H42M [facility] Rx#:[id number] Intake, IV Titration 210.364 69.955 Amount Norepinephrine 4 mg In 210.364 69.955 Sodium Chloride 0.9% 250 ml @ 0.03 MCG/KG/MIN 11. 147 mls/hr IV .[id number] [facility] Rx#:[id number] Oral 1256 680 Blood Product 1876 Ffp 24 Pher Acda Cnt1 221 Unit [id number] Ffp 24 Pher Acda Cnt1 205 Unit [id number] Platelet Pheresis Pas 267 Psoralen Unit [id number] Rc As-1 Unit 310 [id number] Rc Irr As1 Unit 310 [id number] Rc Pheresis 2 As3 Unit 279 [id number] Rc Pheresis As-3 Unit 284 [id number] Output: Urine 160 385 840 Other: Voiding Method Urinal Indwelling Catheter Indwelling Catheter # Bowel Movements 1 1 - Exam Mild respiratory distress, oriented 3. The patient is currently 4 liters of oxygen. He is very pale. HEENT examination is grossly unremarkable. Mucous membranes are moist. No oral lesions. Neck supple. Full range of motion. No adenopathy thyromegaly or neck vein distention. Cardiovascular examination reveals regular rhythm rate. S1-S2 normal. No S3 or S4. No discernible murmur noted. Lungs reveal scattered rhonchi and crackles. Breath sounds equal. No wheezes. Abdomen soft bowel sounds are heard. No masses or tenderness. Dried blood is noted in the area of the groin, over his lower abdomen, scrotum, and penis. Extremities are intact. No cyanosis clubbing or edema. Skin is without rash or lesion. Neurologic examination is brief but nonfocal. - Labs CBC & Chem 7: 01/07/25 06:37 01/07/25 09:04 Labs: Abnormal Lab Results - Last 24 Hours (Table) 01/06/25 01/06/25 01/06/25 Range/Units 08:51 11:52 13:05 WBC 21.6 H (3.8-10.6) k/uL RBC 3.19 L (4.30-5.90) m/uL Hgb 7.4 L D (13.0-17.5) gm/dL Hct 26.2 L (39.0-53.0) % MCH 23.3 L (25.0-35.0) pg MCHC 28.4 L (31.0-37.0) g/dL RDW 16.7 H (11.5-15.5) % Plt Count (150-450) k/uL Neutrophils # (1.3-7.7) k/uL ABG pCO2 (35-45) mmHg ABG pO2 (83-108) mmHg ABG HCO3 (21-25) mmol/L ABG Total CO2 (19-24) mmol/L ABG O2 Saturation (94-97) % Hemoglobin (13.0-17.5) gm/dL Potassium 5.4 H (3.5-5.1) mmol/L Chloride 109 H (98-107) mmol/L Carbon Dioxide 15 L (22-30) mmol/L BUN 50 H (9-20) mg/dL Creatinine 1.93 H (0.66-1.25) mg/dL Glucose 113 H (74-99) mg/dL Plasma Lactic Acid Glen (0.7-2.0) mmol/L Calcium 8.1 L (8.4-10.2) mg/dL Total Bilirubin 1.7 H (0.2-1.3) mg/dL AST (17-59) U/L Troponin I (0.000-0.034) ng/mL Albumin 3.1 L (3.5-5.0) g/dL Crossmatch See Detail 01/06/25 01/06/25 01/06/25 Range/Units 15:00 15:00 15:04 WBC 14.7 H (3.8-10.6) k/uL RBC 3.16 L (4.30-5.90) m/uL Hgb 7.5 L (13.0-17.5) gm/dL Hct 25.5 L (39.0-53.0) % MCH 23.6 L (25.0-35.0) pg MCHC 29.3 L (31.0-37.0) g/dL RDW 16.8 H (11.5-15.5) % Plt Count (150-450) k/uL Neutrophils # (1.3-7.7) k/uL ABG pCO2 28 L (35-45) mmHg ABG pO2 110 H (83-108) mmHg ABG HCO3 16 L (21-25) mmol/L ABG Total CO2 17 L (19-24) mmol/L ABG O2 Saturation 98.9 H (94-97) % Hemoglobin 7.5 L (13.0-17.5) gm/dL Potassium (3.5-5.1) mmol/L Chloride (98-107) mmol/L Carbon Dioxide (22-30) mmol/L BUN (9-20) mg/dL Creatinine (0.66-1.25) mg/dL Glucose (74-99) mg/dL Plasma Lactic Acid Glen 6.4 H* (0.7-2.0) mmol/L Calcium (8.4-10.2) mg/dL Total Bilirubin (0.2-1.3) mg/dL AST (17-59) U/L Troponin I (0.000-0.034) ng/mL Albumin (3.5-5.0) g/dL Crossmatch 03/05/25 03/05/25 03/06/25 Range/Units 18:30 18:30 00:50 WBC 12.9 H (3.8-10.6) k/uL RBC 3.35 L 3.32 L (4.30-5.90) m/uL Hgb 8.3 L 8.2 L (13.0-17.5) gm/dL Hct 27.7 L 26.8 L (39.0-53.0) % MCH 24.7 L 24.7 L (25.0-35.0) pg MCHC 29.9 L 30.5 L (31.0-37.0) g/dL RDW 17.0 H 17.4 H (11.5-15.5) % Plt Count 131 L 144 L (150-450) k/uL Neutrophils # (1.3-7.7) k/uL ABG pCO2 (35-45) mmHg ABG pO2 (83-108) mmHg ABG HCO3 (21-25) mmol/L ABG Total CO2 (19-24) mmol/L ABG O2 Saturation (94-97) % Hemoglobin (13.0-17.5) gm/dL Potassium 5.2 H (3.5-5.1) mmol/L Chloride 109 H (98-107) mmol/L Carbon Dioxide 17 L (22-30) mmol/L BUN 56 H (9-20) mg/dL Creatinine 2.08 H (0.66-1.25) mg/dL Glucose 122 H (74-99) mg/dL Plasma Lactic Acid Glen (0.7-2.0) mmol/L Calcium 8.2 L (8.4-10.2) mg/dL Total Bilirubin (0.2-1.3) mg/dL AST (17-59) U/L Troponin I (0.000-0.034) ng/mL Albumin (3.5-5.0) g/dL Crossmatch 01/07/25 01/07/25 01/07/25 Range/Units 05:39 05:39 06:37 WBC 13.0 H 12.1 H (3.8-10.6) k/uL RBC 3.33 L 3.44 L (4.30-5.90) m/uL Hgb 8.3 L 8.3 L (13.0-17.5) gm/dL Hct 27.4 L 28.3 L (39.0-53.0) % MCH 24.2 L (25.0-35.0) pg MCHC 30.4 L 29.5 L (31.0-37.0) g/dL RDW 17.6 H 17.6 H (11.5-15.5) % Plt Count 142 L (150-450) k/uL Neutrophils # 10.8 H 10.0 H (1.3-7.7) k/uL ABG pCO2 (35-45) mmHg ABG pO2 (83-108) mmHg ABG HCO3 (21-25) mmol/L ABG Total CO2 (19-24) mmol/L ABG O2 Saturation (94-97) % Hemoglobin (13.0-17.5) gm/dL Potassium (3.5-5.1) mmol/L Chloride 109 H (98-107) mmol/L Carbon Dioxide 20 L (22-30) mmol/L BUN 59 H (9-20) mg/dL Creatinine 2.18 H (0.66-1.25) mg/dL Glucose 108 H (74-99) mg/dL Plasma Lactic Acid Glen (0.7-2.0) mmol/L Calcium (8.4-10.2) mg/dL Total Bilirubin 1.4 H (0.2-1.3) mg/dL AST 95 H (17-59) U/L Troponin I (0.000-0.034) ng/mL Albumin 3.0 L (3.5-5.0) g/dL Crossmatch 01/07/25 01/07/25 Range/Units 09:04 09:04 WBC (3.8-10.6) k/uL RBC (4.30-5.90) m/uL Hgb (13.0-17.5) gm/dL Hct (39.0-53.0) % MCH (25.0-35.0) pg MCHC (31.0-37.0) g/dL RDW (11.5-15.5) % Plt Count (150-450) k/uL Neutrophils # (1.3-7.7) k/uL ABG pCO2 (35-45) mmHg ABG pO2 (83-108) mmHg ABG HCO3 (21-25) mmol/L ABG Total CO2 (19-24) mmol/L ABG O2 Saturation (94-97) % Hemoglobin (13.0-17.5) gm/dL Potassium (3.5-5.1) mmol/L Chloride 111 H (98-107) mmol/L Carbon Dioxide (22-30) mmol/L BUN 59 H (9-20) mg/dL Creatinine 2.17 H (0.66-1.25) mg/dL Glucose 106 H (74-99) mg/dL Plasma Lactic Acid Glen (0.7-2.0) mmol/L Calcium 8.1 L (8.4-10.2) mg/dL Total Bilirubin (0.2-1.3) mg/dL AST (17-59) U/L Troponin I 16.500 H* (0.000-0.034) ng/mL Albumin (3.5-5.0) g/dL Crossmatch Assessment and Plan Assessment: Acute lower GI bleed, with severe anemia. Rule out non-ST segment elevation myocardial infarction. History of previous myocardial infarction. History of asthma. History of CVA. History of hyperlipidemia. History of hypertension. History of melanoma, with possible metastatic melanoma. History of osteoarthritis. Plan: Plan dated January 06, 2025. The patient was seen in the emergency department, room #1. The patient presented via the EMS, with lower GI bleed. He was having bright red bleeding per rectum. The patient's initial hemoglobin was 5.7. He was seen by Dr. Mason in the emergency department, and received 2 units of PRBCs, 2 units of fresh frozen plasma, and 1 unit of platelets. In addition, the patient received DDAVP, Protonix, saline at 130 cc an hour, and nasal O2 at 3 L. The patient will be admitted to the intensive care unit, for further monitoring and management. The patient had an EGD by Dr. Zaldivar which did not show any active GI bleeding. We will continue to follow make recommendations along the way. Prognosis is guarded. Frequent hemoglobin checks. Hemodynamic status is stable. Plan dated January 07, 2025. The patient's chest x-ray is consistent with CHF/fluid overload. The patient's BNP was quite high. In addition, the troponin level was very high. We will going to have cardiology see this patient. The patient is apparently scheduled for a colonoscopy today. He has received a total of 4 units of PRBCs, 2 units of fresh frozen plasma, 1 unit of platelets, and DDAVP since he has been here. His EGD done yesterday did not reveal any active bleeding. Currently, he is hypotensive, and requires norepinephrine at 5 mcg/min. He also is using BiPAP intermittently, with settings of 12/5, and 30%. Labs, x-rays, and all medica tions are reviewed. Prognosis is guarded. We will continue to follow make recommendations. Dictation was produced using [employer] dictation software. Please excuse any grammatical, word or spelling errors. Time with Patient: Greater than 30
--- NOTE | 2025-01-07 12:56 | P.NPCON ---
History of Present Illness - Reason for Consult acute renal failure - History of Present Illness Patient is an 89-year-old male with history of coronary artery disease, ischemic cardiomyopathy with a EF of 40 to 45% previous history of CVA and hypertension who is admitted to the hospital with history of blood in the stools. Underlying chronic kidney disease stage IIIb with baseline creatinine 1.4 -1.5 mg/dL patient is noted to have dark bloody bowel movement. Hemoglobin was 8.2 g/dL. No active bleeding noted since admission. Currently maintained on Levophed. Hypotension noted with systolic blood pressure in the 70s. Maintained on IV hydration Scheduled for colonoscopy today. Serum creatinine 2.0 on admission and it is 2.1 today. Devious creatinine at 1.4 to 1.7 mg/dL in September 2024 Past Medical History Past Medical History: Asthma, Cancer, CVA/TIA, Hearing Disorder / Deafness, Hyperlipidemia, Hypertension, Myocardial Infarction (ME), Osteoarthritis (OA) Additional Past Medical History / Comment(s): CVA 1992-left side weakness- uses walker, past wound on lower left leg- treated at [facility], past venous leg ulcers, melanoma back and basal skin cancer L shoulder, URINATES FREQUENTLY, Last Myocardial Infarction Date:: 2008 History of Any Multi-Drug Resistant Organisms: MRSA Date of last positivie culture/infection: 10/04/18 MDRO Source:: Left First Toe Past Surgical History: Appendectomy, Back Surgery, Heart Catheterization, Hernia Repair, Orthopedic Surgery Additional Past Surgical History / Comment(s): 05/01/16 Wide excision melanoma back, excision lesion L shoulder basal cancer. Other surgical hx: DEBRIDEMENT OF LEFT CALF/LEG, umbilical hernia repair, lumbar spine surgery Past Anesthesia/Blood Transfusion Reactions: No Reported Reaction Date of Last Stent Placement:: 2021 Past Psychological History: No Psychological Hx Reported Smoking Status: Former smoker Past Alcohol Use History: None Reported Past Drug Use History: None Reported - Past Family History Mother History Unknown: Yes Father History Unknown: Yes Medications and Allergies Home Medications Medication Instructions Recorded Confirmed Type Atorvastatin [Lipitor] 40 mg PO DAILY #90 tab 07/23/22 01/06/25 Rx Clopidogrel [Plavix] 75 mg PO DAILY 08/14/22 01/06/25 History Nitroglycerin Sl Tabs [Nitrostat] 0.4 mg SUBLINGUAL Q5M PRN 09/28/24 01/06/25 History Aspirin 81 mg PO DAILY #30 tab 09/30/24 01/06/25 Rx Ferrous Sulfate [Feosol] 325 mg PO DAILY #30 tab 09/30/24 01/06/25 Rx Isosorbide Mononitrate ER [Imdur] 60 mg PO DAILY 01/06/25 01/06/25 History Allergies Allergy/AdvReac Type Severity Reaction Status Date / Time No Known Allergies Allergy Verified 01/06/25 09:06 Physical Exam Vitals: Vital Signs Temp Pulse Resp BP Pulse Ox FiO2 01/07/25 12:37 30 01/07/25 12:00 97.9 F 91 27 H 99/56 99 30 01/07/25 11:45 94 32 H 99/69 100 01/07/25 11:30 98 27 H 107/68 100 01/07/25 11:15 96 25 H 99/64 100 01/07/25 11:00 95 26 H 99/62 100 01/07/25 10:45 98 31 H 112/66 100 01/07/25 10:30 85 21 105/74 99 01/07/25 10:15 97 30 H 104/67 97 30 01/07/25 10:00 92 28 H 98/67 95 01/07/25 09:45 92 25 H 116/78 96 01/07/25 09:30 101 H 30 H 103/65 01/07/25 09:15 94 27 H 113/80 99 01/07/25 09:00 93 30 H 108/65 100 01/07/25 08:45 93 16 101/64 98 01/07/25 08:30 94 24 96/56 100 01/07/25 08:15 91 30 H 94/58 100 01/07/25 08:00 97.4 F L 82 25 H 91/60 100 01/07/25 07:45 90 28 H 103/53 100 01/07/25 07:30 88 30 H 103/54 98 01/07/25 07:24 99 01/07/25 07:15 90 28 H 101/68 100 01/07/25 07:00 101 H 33 H 88/48 96 01/07/25 06:45 87 38 H 103/71 88 L 01/07/25 06:30 90 32 H 100/67 100 01/07/25 06:15 86 23 106/62 100 01/07/25 06:00 89 28 H 100/77 100 01/07/25 05:45 88 30 H 98/65 100 01/07/25 05:30 86 27 H 103/67 99 01/07/25 05:15 90 31 H 99/49 98 01/07/25 05:00 90 23 90/59 99 01/07/25 04:45 90 27 H 111/77 99 01/07/25 04:30 92 37 H 92/57 99 01/07/25 04:15 87 27 H 92/56 99 30 01/07/25 04:00 98.4 F 86 18 94/57 100 30 01/07/25 03:45 81 25 H 91/49 99 01/07/25 03:30 92 29 H 95/66 99 01/07/25 03:15 89 31 H 97/62 99 01/07/25 03:00 85 21 89/57 99 01/07/25 02:45 85 23 93/50 99 01/07/25 02:30 85 22 94/61 100 01/07/25 02:15 85 23 97/58 100 01/07/25 02:00 89 22 91/62 100 01/07/25 01:45 86 23 100/62 100 01/07/25 01:30 84 26 H 96/67 100 01/07/25 01:15 84 27 H 92/64 99 01/07/25 01:00 86 27 H 89/56 100 01/07/25 00:45 84 28 H 85/59 100 01/07/25 00:30 86 28 H 85/58 99 01/07/25 00:28 30 01/07/25 00:15 23 93/61 98 01/07/25 00:00 98.0 F 89 25 H 90/59 100 30 01/06/25 23:45 87 25 H 81/51 100 01/06/25 23:30 89 25 H 90/63 100 01/06/25 23:24 78 24 90/63 99 01/06/25 23:15 92 32 H 83/48 100 01/06/25 23:00 92 24 80/51 100 01/06/25 22:45 86 26 H 92/63 100 01/06/25 22:30 87 26 H 92/60 100 01/06/25 22:15 96 33 H 84/62 98 03/05/ 22:00 98 28 H 98/68 100 05/ 21:45 91 28 H 90/60 99 03/05/ 21:30 93 33 H 84/58 98 03/05/ 21:15 93 28 H 103/64 100 /05/ 21:00 93 21 89/56 100 /05/ 20:45 90 20 92/44 100 /05 20:30 90 23 79/53 100 05/ 20:15 93 26 H 99/69 100 /05/ 20:00 97.7 F 92 31 H 78/49 99 40 /05/ 19:54 30 05 19:45 92 24 79/54 99 05/ 19:30 90 18 80/57 100 05 19:15 93 24 95/60 100 /05/ 19:00 93 22 82/60 96 /05/ 18:45 94 26 H 82/59 100 05 18:30 104 H 18 76/57 100 05/ 18:15 90 22 78/53 99 /05/ 18:00 90 28 H 80/53 100 /05/ 17:53 40 05/ 17:45 90 28 H 87/59 100 05/ 17:35 97.5 F L 92 28 H 87/59 100 /05/ 17:30 96 22 84/55 100 /05/ 17:15 100 27 H 78/60 93 L 03/05/ 17:00 93 28 H 80/51 100 /05/25 16:45 95 26 H 79/54 100 /05/ 16:30 100 28 H 99/64 100 /05/25 16:15 105 H 28 H 80/58 100 /05/ 16:00 97.7 F 99 29 H 84/53 100 40 /05/ 15:45 98 27 H 88/67 100 /05/25 15:40 97.8 F 98 28 H 84/53 99 03/05/25 15:30 100 27 H 84/55 100 03/05/25 15:24 40 /05/25 15:15 93 29 H 86/53 100 40 03/05/25 15:14 40 01/06/25 15:00 92 28 H 85/54 100 01/06/25 14:45 130 H 33 H 92/59 98 01/06/25 14:30 128 H 28 H 86/63 98 01/06/25 14:15 101 H 27 H 90/55 99 01/06/25 14:00 101 H 26 H 90/55 97 01/06/25 13:45 99 29 H 89/42 99 01/06/25 13:30 101 H 25 H 84/53 100 01/06/25 13:15 101 H 34 H 95/51 100 01/06/25 13:00 102 H 28 H 97/58 98 Intake and Output 01/06/25 01/07/25 01/07/25 22:59 06:59 14:59 Intake Total 7682.902 3286.308 824.955 Output Total 265 280 840 Balance 1256.056 949.308 -15.045 Intake: IV 920 80 75 Piperacillin-Tazobactam 3 25 .375 gm In Sodium Chloride 0.9% 100 ml @ 25 mls/hr IVPB Q12HR [facility] Rx #:[id number] Sodium Chloride 0.9% 1, 920 80 50 000 ml @ 130 mls/hr IV . Q7H42M [facility] Rx#:[id number] Intake, IV Titration 21.056 189.308 69.955 Amount Norepinephrine 4 mg In 21.056 189.308 69.955 Sodium Chloride 0.9% 250 ml @ 0.03 MCG/KG/MIN 11. 147 mls/hr IV .[id number] [facility] Rx#:[id number] Oral 296 960 680 Blood Product 284 Rc Pheresis As-3 Unit 284 [id number] Output: Urine 265 280 840 Other: Voiding Method Indwelling Catheter Indwelling Catheter Indwelling Catheter # Bowel Movements 1 1 Weight 112.6 kg Patient is seen in the ICU Maintained on BiPAP Examination of the heart S1 and S2 Examination of the lungs bilateral breath sounds are heard Abdomen is soft nontender Examination of lower extremities shows chronic skin changes, no significant edema Results - Lab Results Most recent lab results ABG pH 7.36 (7.35-7.45) 01/06/25 15:04 ABG pCO2 28 mmHg (35-45) L 01/06/25 15:04 ABG pO2 110 mmHg (83-108) H 01/06/25 15:04 ABG HCO3 16 mmol/L (21-25) L 01/06/25 15:04 ABG O2 Saturation 98.9 % (94-97) H 01/06/25 15:04 Calcium 8.1 mg/dL (8.4-10.2) L 01/07/25 09:04 Magnesium 2.1 mg/dL (1.6-2.3) 01/06/25 13:05 01/07/25 06:37 01/07/25 09:04 Assessment and Plan Assessment: 1. Acute kidney injury, ATN, nonoliguric secondary to hypotension and anemia. Check UA. CT abdomen does not show any evidence of obstruction. 2. Chronic kidney disease stage IIIb with baseline creatinine 1.4 to 1.5 mg/dL. Previous UA showed trace protein on 09/29/2024. Etiology is likely nephrosclerosis 3. GI bleed status post packed RBCs transfusion x4 along with FFP and 1 unit of platelets 4. Anemia from acute blood loss from acute GI bleed 5. Acute hypoxic respiratory failure secondary to CHF exacerbation 6. Elevated troponins, cardiology on consult Plan: Will continue to diurese patient. Check UA Repeat labs in a.m. DDAVP if patient continues to have active bleeding. Thank you for the consultation. We will continue to follow the patient with you during his hospitalization
--- NOTE | 2025-01-07 13:02 | P.PCN ---
Date of Procedure: 01/07/25 Procedure(s) Performed: BRIEF HISTORY: Patient is a 84-year-old pleasant white male admitted to hospital with acute severe GI bleed. He required total 4 units of PRBC transfusion for hemoglobin of 5.6 g/dL yesterday and underwent an upper endoscopy in the emergency room which was unremarkable with no evidence of active upper GI bleed. He is hence scheduled for an colonoscopy to evaluate further. PROCEDURE PERFORMED: Colonoscopy. PREOPERATIVE DIAGNOSIS: Acute GI bleed and negative upper endoscopy yesterday. IV sedation per Anesthesia. PROCEDURE: After informed consent was obtained, the patient, was brought into the endoscopy unit. IV sedation was administered by Anesthesia under continuous monitoring. Digital rectal examination was normal. Initially the Olympus CF-160 flexible video colonoscope was then inserted in the rectum, gradually advanced into the cecum without any difficulty. Careful examination was performed as the scope was gradually being withdrawn. Ileocecal valve and the appendiceal orifice were visualized and appeared normal. Prep was excellent. Mucosa of the cecum, ascending colon, transverse colon, descending colon, sigmoid colon, and rectum appeared normal. Katter sigmoid diverticulosis. Retroflexion was performed in the rectum and grade 2 internal hemorrhoid were seen. The patient tolerated the procedure well. IMPRESSION: Normal-appearing colon from rectum to cecum with no evidence of colitis or colorectal neoplasia No active GI bleed noted Scattered sigmoid diverticulosis Grade 2 hemorrhoids. RECOMMENDATIONS: Findings of this examination were discussed with the patient. Most likely patient had an episode of acute severe diverticular bleed that has spontaneously resolved. At this time we will monitor CBC daily. Start him on a regular diet..
--- NOTE | 2025-01-07 13:51 | P.PN ---
Subjective Progress Note Date: 01/07/25 Interval History: History of present illness: 89-year-old male patient with past medical history significant for coronary artery disease status post stenting 2021, ischemic cardiomyopathy with a EF 40 to 45%, history of CVA with left-sided residual deficits, hypertension, hyperlipidemia, hard of hearing, history of skin cancer who presented to ER with a complaint of blood in the stools. Patient was brought to the ER by EMS, was noted to have large bloody bowel movement, was complaining of dizziness, also complained of nausea and abdominal discomfort. Patient was afebrile on presentation, was tachycardic and hypotensive, initially was on on room air, later on required supplemental oxygen 2 L after IV fluids. WBCs 12.5, hemoglobin 5.7, came up to 7.4 after 3 units. Platelet 227. INR 1.3. Sodium 139, potassium 5.4, chloride 107, CO2 12, BUN 51, creatinine 2.03, GFR 30. Liver profile unremarkable. Chest x-ray showed small left pleural effusion with left basilar opacities, diffuse interstitial prominence. 01/07--patient was seen and examined today. Patient is afebrile, heart rate 91, respiratory rate 27, blood pressure 99/56, saturating 99%, currently on BiPAP with 30% FiO2. WBCs 12.1, hemoglobin 8.3, platelet 158. Sodium 143, potassium 4.9, BUN 59, creatinine 2.17. Troponin was 16.5, went up to 12.2. proBNP 11,600. Patient underwent colonoscopy today which showed normal-appearing colon from rectum to cecum with no evidence of colitis or colorectal neoplasia, no active GI bleed, scattered sigmoid diverticulosis. Grade 2 hemorrhoids. Assessment and plan: Acute lower GI bleed: Severe anemia: Acute blood loss anemia Hemorrhagic shock: BO on CKD: Suspect prerenal secondary to hypovolemia, hypotension Acute on chronic diastolic CHF: Hyperkalemia: History of CAD/PCI in 2021: Elevated troponin: Likely demand ischemia. Hypertension Hyperlipidemia Hard of hearing History of CVA with left-sided weakness Acute hypoxic respiratory failure Fluid overload: Skin cancer: History of melanoma Osteoarthritis History of asthma Plan Presented with bright red blood in the stools, initial hemoglobin 5.7, received 4 unit of packed RBCs, 2 units of FFP, 1 unit of platelet, DDAVP. Monitor H&H every 6 hour, transfuse for hemoglobin less than 7.0. GI consulted status post EGD showed no active GI bleed. Colonoscopy 3/ negative for any active bleed, per GI likely to articular bleed which is stopped now. GI and general surgery consulted and following CT abdomen pelvismoderate bilateral pleural effusion, dependent airspace consolidation, abdominal ascites, dilated small bowel measuring up to 2.7 cm, atrophic kidneys, diverticulosis. PPI Zosyn ICU consulted Maintain at least 2 peripheral IVs Monitor vitals closely Hold aspirin and Plavix Hold antihypertensives IV diuresis for fluid overload. Monitor renal function, monitor potassium, currently on IV fluids, hold nephrotoxin, nephrology consult Cardiology consult. DVT prophylaxis SCD Monitor vital signs and labs Labs and medication were reviewed. Continue same treatment. Further recommendations as per clinical course of the patient PHYSICAL EXAMINATION: GENERAL: The patient is A&O x3, NAD. Hard of hearing. Ill-appearing. HEENT: EOMI, Sclerae anicteric, Moist Mucous membranes Neck: Supple, Non tender, No JVD PULMONARY: Equal breath souds B/L, No wheezing, No crackles. CARDIOVASCULAR: S1, S2 present. No murmurs, rubs, or gallops. ABDOMEN: Soft, nontender, nondistended, normoactive bowel sounds. No guarding or rebound tenderness. MUSCULOSKELETAL: No edema, No cyanosis. No clubbing. Normal ROM. Intact peripheral pulses. NEUROLOGICAL: CN 2-12 grossly intact. No FND Skin: Left neck skin lesion-malignant appearing REVIEW OF SYSTEMS: CONSTITUTIONAL: No fever or chills. CARDIOVASCULAR: No chest pain, palpitations or syncope. PULMONARY: No shortness of breath, no cough, sore throat. GASTROINTESTINAL: No nausea, vomiting, diarrhea, abdominal pain. : No Dysuria, urgency, frequency. Extremities: No edema. NEUROLOGICAL: No headaches, no weakness, or numbness Dictation was produced using [employer] dictation software. please excuse any grammatical, word or spelling errors. Objective - Vital Signs Vital signs: Vital Signs Temp 97.9 F 01/07/25 12:00 Pulse 91 01/07/25 12:00 Resp 27 H 01/07/25 12:00 BP 99/56 01/07/25 12:00 Pulse Ox 99 01/07/25 12:00 FiO2 30 01/07/25 12:37 Intake & Output 01/06/25 01/07/25 01/07/25 18:59 06:59 18:59 Intake Total 2916 1816.364 824.955 Output Total 160 385 840 Balance 2756 1431.364 -15.045 Weight 97.522 kg 112.6 kg Intake: IV 1040 350 75 Piperacillin-Tazobactam 3 25 .375 gm In Sodium Chloride 0.9% 100 ml @ 25 mls/hr IVPB Q12HR [facility] Rx #:[id number] Sodium Chloride 0.9% 1, 1040 350 50 000 ml @ 130 mls/hr IV . Q7H42M [facility] Rx#:[id number] Intake, IV Titration 210.364 69.955 Amount Norepinephrine 4 mg In 210.364 69.955 Sodium Chloride 0.9% 250 ml @ 0.03 MCG/KG/MIN 11. 147 mls/hr IV .[id number] [facility] Rx#:[id number] Oral 1256 680 Blood Product 1876 Ffp 24 Pher Acda Cnt1 221 Unit [id number] Ffp 24 Pher Acda Cnt1 205 Unit [id number] Platelet Pheresis Pas 267 Psoralen Unit [id number] Rc As-1 Unit 310 [id number] Rc Irr As1 Unit 310 [id number] Rc Pheresis 2 As3 Unit 279 [id number] Rc Pheresis As-3 Unit 284 [id number] Output: Urine 160 385 840 Other: Voiding Method Urinal Indwelling Catheter Indwelling Catheter # Bowel Movements 1 1 - Labs CBC & Chem 7: 01/07/25 06:37 01/07/25 09:04 Labs: Abnormal Lab Results - Last 24 Hours (Table) 01/06/25 01/06/25 01/06/25 Range/Units 08:51 13:05 15:00 WBC 14.7 H (3.8-10.6) k/uL RBC 3.16 L (4.30-5.90) m/uL Hgb 7.5 L (13.0-17.5) gm/dL Hct 25.5 L (39.0-53.0) % MCH 23.6 L (25.0-35.0) pg MCHC 29.3 L (31.0-37.0) g/dL RDW 16.8 H (11.5-15.5) % Plt Count (150-450) k/uL Neutrophils # (1.3-7.7) k/uL ABG pCO2 (35-45) mmHg ABG pO2 (83-108) mmHg ABG HCO3 (21-25) mmol/L ABG Total CO2 (19-24) mmol/L ABG O2 Saturation (94-97) % Hemoglobin (13.0-17.5) gm/dL Potassium 5.4 H (3.5-5.1) mmol/L Chloride 109 H (98-107) mmol/L Carbon Dioxide 15 L (22-30) mmol/L BUN 50 H (9-20) mg/dL Creatinine 1.93 H (0.66-1.25) mg/dL Glucose 113 H (74-99) mg/dL Plasma Lactic Acid Glen (0.7-2.0) mmol/L Calcium 8.1 L (8.4-10.2) mg/dL Total Bilirubin 1.7 H (0.2-1.3) mg/dL AST (17-59) U/L Troponin I (0.000-0.034) ng/mL Albumin 3.1 L (3.5-5.0) g/dL Crossmatch See Detail 01/06/25 01/06/25 01/06/25 Range/Units 15:00 15:04 18:30 WBC (3.8-10.6) k/uL RBC 3.35 L (4.30-5.90) m/uL Hgb 8.3 L (13.0-17.5) gm/dL Hct 27.7 L (39.0-53.0) % MCH 24.7 L (25.0-35.0) pg MCHC 29.9 L (31.0-37.0) g/dL RDW 17.0 H (11.5-15.5) % Plt Count 131 L (150-450) k/uL Neutrophils # (1.3-7.7) k/uL ABG pCO2 28 L (35-45) mmHg ABG pO2 110 H (83-108) mmHg ABG HCO3 16 L (21-25) mmol/L ABG Total CO2 17 L (19-24) mmol/L ABG O2 Saturation 98.9 H (94-97) % Hemoglobin 7.5 L (13.0-17.5) gm/dL Potassium (3.5-5.1) mmol/L Chloride (98-107) mmol/L Carbon Dioxide (22-30) mmol/L BUN (9-20) mg/dL Creatinine (0.66-1.25) mg/dL Glucose (74-99) mg/dL Plasma Lactic Acid Glen 6.4 H* (0.7-2.0) mmol/L Calcium (8.4-10.2) mg/dL Total Bilirubin (0.2-1.3) mg/dL AST (17-59) U/L Troponin I (0.000-0.034) ng/mL Albumin (3.5-5.0) g/dL Crossmatch 01/06/25 01/07/25 01/07/25 Range/Units 18:30 00:50 05:39 WBC 12.9 H (3.8-10.6) k/uL RBC 3.32 L (4.30-5.90) m/uL Hgb 8.2 L (13.0-17.5) gm/dL Hct 26.8 L (39.0-53.0) % MCH 24.7 L (25.0-35.0) pg MCHC 30.5 L (31.0-37.0) g/dL RDW 17.4 H (11.5-15.5) % Plt Count 144 L (150-450) k/uL Neutrophils # (1.3-7.7) k/uL ABG pCO2 (35-45) mmHg ABG pO2 (83-108) mmHg ABG HCO3 (21-25) mmol/L ABG Total CO2 (19-24) mmol/L ABG O2 Saturation (94-97) % Hemoglobin (13.0-17.5) gm/dL Potassium 5.2 H (3.5-5.1) mmol/L Chloride 109 H 109 H (98-107) mmol/L Carbon Dioxide 17 L 20 L (22-30) mmol/L BUN 56 H 59 H (9-20) mg/dL Creatinine 2.08 H 2.18 H (0.66-1.25) mg/dL Glucose 122 H 108 H (74-99) mg/dL Plasma Lactic Acid Glen (0.7-2.0) mmol/L Calcium 8.2 L (8.4-10.2) mg/dL Total Bilirubin 1.4 H (0.2-1.3) mg/dL AST 95 H (17-59) U/L Troponin I (0.000-0.034) ng/mL Albumin 3.0 L (3.5-5.0) g/dL Crossmatch 01/07/25 01/07/25 01/07/25 Range/Units 05:39 06:37 09:04 WBC 13.0 H 12.1 H (3.8-10.6) k/uL RBC 3.33 L 3.44 L (4.30-5.90) m/uL Hgb 8.3 L 8.3 L (13.0-17.5) gm/dL Hct 27.4 L 28.3 L (39.0-53.0) % MCH 24.2 L (25.0-35.0) pg MCHC 30.4 L 29.5 L (31.0-37.0) g/dL RDW 17.6 H 17.6 H (11.5-15.5) % Plt Count 142 L (150-450) k/uL Neutrophils # 10.8 H 10.0 H (1.3-7.7) k/uL ABG pCO2 (35-45) mmHg ABG pO2 (83-108) mmHg ABG HCO3 (21-25) mmol/L ABG Total CO2 (19-24) mmol/L ABG O2 Saturation (94-97) % Hemoglobin (13.0-17.5) gm/dL Potassium (3.5-5.1) mmol/L Chloride 111 H (98-107) mmol/L Carbon Dioxide (22-30) mmol/L BUN 59 H (9-20) mg/dL Creatinine 2.17 H (0.66-1.25) mg/dL Glucose 106 H (74-99) mg/dL Plasma Lactic Acid Glen (0.7-2.0) mmol/L Calcium 8.1 L (8.4-10.2) mg/dL Total Bilirubin (0.2-1.3) mg/dL AST (17-59) U/L Troponin I (0.000-0.034) ng/mL Albumin (3.5-5.0) g/dL Crossmatch 01/07/25 01/07/25 Range/Units 09:04 12:26 WBC (3.8-10.6) k/uL RBC (4.30-5.90) m/uL Hgb (13.0-17.5) gm/dL Hct (39.0-53.0) % MCH (25.0-35.0) pg MCHC (31.0-37.0) g/dL RDW (11.5-15.5) % Plt Count (150-450) k/uL Neutrophils # (1.3-7.7) k/uL ABG pCO2 (35-45) mmHg ABG pO2 (83-108) mmHg ABG HCO3 (21-25) mmol/L ABG Total CO2 (19-24) mmol/L ABG O2 Saturation (94-97) % Hemoglobin (13.0-17.5) gm/dL Potassium (3.5-5.1) mmol/L Chloride (98-107) mmol/L Carbon Dioxide (22-30) mmol/L BUN (9-20) mg/dL Creatinine (0.66-1.25) mg/dL Glucose (74-99) mg/dL Plasma Lactic Acid Glen (0.7-2.0) mmol/L Calcium (8.4-10.2) mg/dL Total Bilirubin (0.2-1.3) mg/dL AST (17-59) U/L Troponin I 16.500 H* 12.200 H* (0.000-0.034) ng/mL Albumin (3.5-5.0) g/dL Crossmatch
[2025-01-07 16:19] LABS: Anisocytosis Slight; HCT 29.3 % (39.0-53.0); HGB 8.5 gm/dL (13.0-17.5); Hypochromasia Marked; MCH 23.8 pg (25.0-35.0); MCHC 28.8 g/dL (31.0-37.0); MCV 82.6 fL (80.0-100.0); Mean Platelet Volume 9.4; Platelet Count 110 k/uL (150-450); Poikilocytosis Moderate; RBC 3.55 m/uL (4.30-5.90); RDW 17.6 % (11.5-15.5); WBC 9.8 k/uL (3.8-10.6)
[2025-01-08 00:41] LABS: Anisocytosis Slight; HCT 24.5 % (39.0-53.0); HGB 7.4 gm/dL (13.0-17.5); Hypochromasia Marked; MCH 24.9 pg (25.0-35.0); MCHC 30.4 g/dL (31.0-37.0); MCV 81.9 fL (80.0-100.0); Mean Platelet Volume 9.4; Platelet Count 115 k/uL (150-450); Poikilocytosis Moderate; RBC 2.99 m/uL (4.30-5.90); RDW 17.9 % (11.5-15.5); WBC 8.7 k/uL (3.8-10.6)
[2025-01-08 04:46] LABS: Anisocytosis Slight; Basophils % (A) 0 %; Eosinophils % (A) 1 %; HCT 27.7 % (39.0-53.0); HGB 8.4 gm/dL (13.0-17.5); Hypochromasia Marked; Lymphocytes # (A) 1.2 k/uL (1.0-4.8); Lymphocytes % (A) 14 %; MCH 25.1 pg (25.0-35.0); MCHC 30.1 g/dL (31.0-37.0); MCV 83.4 fL (80.0-100.0); Monocytes # (A) 0.7 k/uL (0-1.0); Monocytes % (A) 8 %; Neutrophils # (A) 6.4 k/uL (1.3-7.7); Neutrophils % (A) 75 %; Platelet Count 120 k/uL (150-450); Poikilocytosis Moderate; RBC 3.32 m/uL (4.30-5.90); RDW 18.1 % (11.5-15.5); WBC 8.5 k/uL (3.8-10.6)
[2025-01-08 05:09] LABS: African American GFR (CKD) 32 (>60 ml/min/1.73 sqM); Anion Gap 7 mmol/L; Blood Urea Nitrogen 60 mg/dL (9-20); Carbon Dioxide 24 mmol/L (22-30); Chloride 108 mmol/L (98-107); Glucose 106 mg/dL (74-99); Non-African American GFR(CKD) 28 (>60 ml/min/1.73 sqM); Potassium 4.2 mmol/L (3.5-5.1); Sodium 139 mmol/L (137-145)
--- NOTE | 2025-01-08 08:10 | XR ---
EXAMINATION TYPE: XR chest 1V portable DATE OF EXAM: 01/08/2025 5:11 AM COMPARISON: Multiple radiographs, with the most recent on 01/07/2025 TECHNIQUE: XR chest 1V portable Portable AP radiograph of the chest. CLINICAL INDICATION:Male, 84 years old with history of pleural effusions, shortness of breath; FINDINGS: Lungs/Pleura: Small to moderate size left pleural effusion with small right pleural effusion. Bibasil ar atelectasis. No pneumothorax. Pulmonary vascularity: Similar pulmonary vascular congestion. Heart/mediastinum: Cardiomediastinal silhouette is enlarged and stable. Atherosclerotic calcificatio ns are seen in the aorta. Musculoskeletal: No acute osseous pathology. IMPRESSION: Similar appearance of cardiomegaly with small to moderate left and small right pleural effusions with pulmonary vascular congestion. Findings suggest CHF exacerbation. [facility], , 01/08/2025 8:08 AM
[2025-01-08] MEDS: FUROSEMIDE 10 MG/ML 2 ML VIAL IV ONE (09:47)
--- NOTE | 2025-01-08 10:08 | CA ---
Transthoracic Echo Report Name: Indio Oden Age: 84 Gender: M : 1940 Exam Date: 01/07/2025 13:29 Exam Location: [facility] Ht (in): 72 Wt (lb): 248 Ordering Physician: Lenin Tovar MD ([id number]) Attending/Referring Phys: [employer] Chelsea Perez RDCS Procedure CPT: Indications: nstemi Cardiac Hx: Technical Quality: Contrast 1: Definity Total Dose (mL): Contrast 2: Total Dose (mL): MEASUREMENTS (Male / Female) Normal Values 2D ECHO LV Diastolic Diameter PLAX 5.7 cm 4.2 - 5.9 / 3.9 - 5.3 cm LV Systolic Diameter PLAX 5.3 cm IVS Diastolic Thickness 0.8 cm 0.6 - 1.0 / 0.6 - 0.9 cm LVPW Diastolic Thickness 0.9 cm 0.6 - 1.0 / 0.6 - 0.9 cm LV Relative Wall Thickness 0.3 RV Internal Dim ED PLAX 2.2 cm LVOT Diameter 1.8 cm LA Systolic Diameter LX 4.5 cm 3.0 - 4.0 / 2.7 - 3.8 cm LA Volume 76.0 cm??? 18 - 58 / 22 - 52 cm??? LA Volume Index 31.3 cm???/m??? 16 - 28 cm???/m??? M-MODE Aortic Root Diameter MM 3.5 cm LA Systolic Diameter MM 3.5 cm LA Ao Ratio MM 1.0 AV Cusp Separation MM 1.5 cm DOPPLER AV Peak Velocity 193.6 cm/s AV Peak Gradient 15.0 mmHg AV Mean Velocity 142.9 cm/s AV Mean Gradient 9.0 mmHg AV Velocity Time Integral 41.2 cm LVOT Peak Velocity 66.3 cm/s LVOT Peak Gradient 1.8 mmHg LVOT Velocity Time Integral 16.1 cm LVOT Stroke Volume 39.4 cm??? LVOT Stroke Volume Index 16.9 ml/m??? AV Area Cont Eq vti 1.0 cm??? AV Area Cont Eq pk 0.8 cm??? TR Peak Velocity 297.1 cm/s TR Peak Gradient 35.3 mmHg Right Ventricular Systolic Press 54.4 mmHg FINDINGS Left Ventricle Left ventricular ejection fraction is estimated at 15-20 %. Mild left ventricular dilatation. Left ventricular wall thickness normal. Severely reduced global left ventricular systolic function. Right Ventricle Moderate right ventricular dilatation. Moderate to severe pulmonary hypertension. Right Atrium Mild right atrial dilatation. Left Atrium Mildly increased left atrial diameter. Mildly increased left atrial volume. Mitral Valve Structurally normal mitral valve. Mild mitral regurgitation. No mitral stenosis. Aortic Valve Low-flow low-gradient aortic stenosis with a peak velocity of 1.93 m/s, peak gradient 15mmHg, mean gradient 9mmHg, and estimated aortic valve area of 1.0cm??? . No aortic regurgitation. Tricuspid Valve Structurally normal tricuspid valve. Mild tricuspid regurgitation. No tricuspid stenosis. Pulmonic Valve Structurally normal pulmonic valve. Trace pulmonic regurgitation. No pulmonic stenosis. Pericardium Left pleural effusion. No pericardial effusion. Aorta Aorta at upper limits of normal. CONCLUSIONS Diagnosis: Non-Q wave myocardial infarction Dilated LV with severe LV dysfunction ejection fraction less than 20% Right ventricular enlargement Moderate to severe pulmonary hypertension Reduced aortic valve excursion/opening, in the setting of severe cardiomyopathy Previewed by: Dr. Alejandro Baugh MD (Electronically Signed) Final Date: 08 January 2025 10:07
--- NOTE | 2025-01-08 10:16 | P.PN ---
Subjective Progress Note Date: 01/08/25 Principal diagnosis: Lower GI bleed This a pleasant 84-year-old male with a history of hard of hearing, coronary artery disease , kidney disease, asthma, CVA, hyperlipidemia, hypertension, myocardial infarction, obesity and melanoma who was brought in by EMS for multi ple large maroon-colored stool. Patient states he woke up around 12:30 at night having some shortness of breath he then again woke up around 330 he felt the urge to have a bowel movement and states it just "exploded" patient states he lives alone and called EMS eventually to come bring him to the emergency department. Patient takes aspirin and Plavix last taken yesterday. Denies any previous history of GI bleed. Denies any history of peptic ulcer disease, GERD and no previous history of upper endoscopy or colonoscopy. EMS reported patient had about 2 L of blood loss between at the house and on the right into the emergency department. Patient had another large maroon-colored bloody bowel movement in the emergency department. He was hypotensive and pale on admission he is status post 2 units of blood, unit of platelets and 1 unit of FFP infusing. He currently denies any abdominal pain, no nausea or vomiting. Patient states he had no abdominal pain during the bowel movement. Admitting labs WBC 12.5 hemoglobin 5.7 hematocrit 28 platelet count 227,000 INR 1.3 sodium 139 potassium 5.4 BUN 51 creatinine 2.03 LFTs unremarkable. 01/08/2025 Patient is seen and examined today as a follow-up. He is sitting up in bed eating breakfast, he remains in the ICU. Blood pressures have been improving he is on a low-dose of Levophed. He has not had any further bleeding. Yesterday he underwent colonoscopy with normal-appearing colon from rectum to cecum with no evidence of colitis or colorectal neoplasia, no active GI bleeding noted, scattered sigmoid diverticulosis and grade 2 hemorrhoids. He denies any abdominal pain, nausea or vomiting. Hemoglobin stable at 8.4 platelet count 120,000. Objective - Vital Signs Vital signs: Vital Signs Temp 98.8 F 01/08/25 00:00 Pulse 118 H 01/08/25 07:00 Resp 34 H 01/08/25 07:00 BP 98/63 01/08/25 07:00 Pulse Ox 99 01/08/25 07:00 FiO2 30 01/07/25 12:37 Intake & Output 01/07/25 01/08/25 01/08/25 18:59 06:59 18:59 Intake Total 963.753 600.550 104.025 Output Total 1490 910 65 Balance -526.247 -309.450 39.025 Intake: IV 125 210 100 Piperacillin-Tazobactam 3 75 200 100 .375 gm In Sodium Chloride 0.9% 100 ml @ 25 mls/hr IVPB Q12HR [facility] Rx #:[id number] Sodium Chloride 0.9% 1, 50 10 000 ml @ 130 mls/hr IV . Q7H42M [facility] Rx#:[id number] Intake, IV Titration 158.753 190.550 4.025 Amount Norepinephrine 4 mg In 118.753 190.550 4.025 Sodium Chloride 0.9% 250 ml @ 0.03 MCG/KG/MIN 11. 147 mls/hr IV .[id number] [facility] Rx#:[id number] Piperacillin-Tazobactam 3 40 .375 gm In Sodium Chloride 0.9% 100 ml @ 25 mls/hr IVPB Q8H [facility] Rx#: [id number] Oral 680 200 Output: Urine 1490 910 65 Other: Voiding Method Indwelling Catheter Indwelling Catheter # Bowel Movements 1 - Exam General appearance: The patient is alert, oriented, appears in no acute distress. HET: Head is normocephalic and atraumatic. Conjunctiva pink. Sclera anicteric. Neck: Supple. Left-sided neck with growth. Abdomen: Soft, nontender, nondistended. Extremities: Normal skin color and turgor. No pedal edema Skin: No rashes, no jaundice Neurological: No focal deficits. Alert and oriented. - Labs CBC & Chem 7: 01/08/25 04:14 01/08/25 04:14 Labs: Abnormal Lab Results - Last 24 Hours (Table) 01/07/25 01/07/25 01/07/25 Range/Units 09:04 09:04 12:26 RBC (4.30-5.90) m/uL Hgb (13.0-17.5) gm/dL Hct (39.0-53.0) % MCH (25.0-35.0) pg MCHC (31.0-37.0) g/dL RDW (11.5-15.5) % Plt Count (150-450) k/uL Chloride 111 H (98-107) mmol/L BUN 59 H (9-20) mg/dL Creatinine 2.17 H (0.66-1.25) mg/dL Glucose 106 H (74-99) mg/dL Calcium 8.1 L (8.4-10.2) mg/dL Troponin I 16.500 H* 12.200 H* (0.000-0.034) ng/mL 01/07/25 01/08/25 01/08/25 Range/Units 15:55 00:15 04:14 RBC 3.55 L 2.99 L 3.32 L (4.30-5.90) m/uL Hgb 8.5 L 7.4 L 8.4 L (13.0-17.5) gm/dL Hct 29.3 L 24.5 L 27.7 L (39.0-53.0) % MCH 23.8 L 24.9 L (25.0-35.0) pg MCHC 28.8 L 30.4 L 30.1 L (31.0-37.0) g/dL RDW 17.6 H 17.9 H 18.1 H (11.5-15.5) % Plt Count 110 L 115 L 120 L (150-450) k/uL Chloride (98-107) mmol/L BUN (9-20) mg/dL Creatinine (0.66-1.25) mg/dL Glucose (74-99) mg/dL Calcium (8.4-10.2) mg/dL Troponin I (0.000-0.034) ng/mL 01/08/25 Range/Units 04:14 RBC (4.30-5.90) m/uL Hgb (13.0-17.5) gm/dL Hct (39.0-53.0) % MCH (25.0-35.0) pg MCHC (31.0-37.0) g/dL RDW (11.5-15.5) % Plt Count (150-450) k/uL Chloride 108 H (98-107) mmol/L BUN 60 H (9-20) mg/dL Creatinine 2.15 H (0.66-1.25) mg/dL Glucose 106 H (74-99) mg/dL Calcium 8.0 L (8.4-10.2) mg/dL Troponin I (0.000-0.034) ng/mL Assessment and Plan (1) GI bleed Narrative/Plan: 84-year-old male presenting to the emergency department after having several large maroon-colored stools which she states are painless. No previous history of GI bleed. History of coronary artery disease on aspirin and Plavix but no anticoagulation. No prior EGD or colonoscopy. As part of his evaluation he underwent upper endoscopy with no evidence of active GI bleed or old blood noted, retained food in the stomach mild duodenitis and a small hiatal hernia. During admission to hospital in ICU he was started on pressors for hypotension, bleeding had resolved on its own. He did undergo colonoscopy with normal- appearing colon, no active bleeding noted, scattered sigmoid diverticulosis. Lower GI bleed likely secondary to diverticular bleed which resolved on its own. Current Visit: Yes Status: Acute Code(s): K92.2 - GASTROINTESTINAL HEMORRHAGE, UNSPECIFIED SNOMED Code(s): 73872973 (2) Coronary artery disease Current Visit: Yes Status: Acute Code(s): I25.10 - ATHSCL HEART DISEASE OF [place] CORONARY ARTERY W/O ANG PCTRS SNOMED Code(s): 66691198 (3) Acute blood loss anemia Current Visit: Yes Status: Acute Code(s): D62 - ACUTE POSTHEMORRHAGIC ANEMIA SNOMED Code(s): 515357041 (4) Chronic kidney disease Current Visit: Yes Status: Acute Code(s): N18.9 - CHRONIC KIDNEY DISEASE, UNSPECIFIED SNOMED Code(s): 513237213 (5) Hypotension Current Visit: Yes Status: Acute Code(s): I95.9 - HYPOTENSION, UNSPECIFIED SNOMED Code(s): 42704703 (6) Diverticulosis Current Visit: Yes Status: Acute Code(s): K57.90 - DVRTCLOS OF INTEST, PART UNSP, W/O PERF OR ABSCESS W/O BLEED SNOMED Code(s): 243476032 Plan: 1. Continue symptomatic and supportive care 2. Diet as tolerated 3. Continue Protonix 40 mg daily while in hospital for GI prophylaxis 4. Patient is status post EGD and colonoscopy. Lower GI bleed likely secondary to diverticular bleed which resolved on its own. 5. No further workup from gastroenterology 6. Continue to monitor hemoglobin and transfuse for hemoglobin less than 7 7. Kidney with recommendations from general surgery 8. Rest of medical management per primary medical team Thank you for allowing us to participate in the care of the patient, the GI service will sign off, gastroenterology will not be available at the hospital this weekend and through next week. If further evaluation by gastroenterology is required the patient will need transfer as per the primary team's discretion. Dr. Gayle Zaldivar I agree with the dictator's note, documented as a scribe by Adry Kelly.
--- NOTE | 2025-01-08 10:56 | P.PN ---
Subjective Patient is seen for follow-up for acute kidney injury. Underlying chronic kidney disease stage IIIb with baseline creatinine around 1.4 to 1.5 mg/dL. Admitted with GI bleed. Significant hypotension on initial admission. Status post IV hydration and developed volume overload with CHF exacerbation. Currently off of IV fluids and received Lasix yesterday. Serum creatinine staying at about 2.1 mg/dL. Urine output at 100 to 60 mL/h Objective - Vital Signs Vital signs: Vital Signs Temp 98.3 F 01/08/25 08:00 Pulse 92 01/08/25 10:00 Resp 30 H 01/08/25 10:00 BP 94/68 01/08/25 10:00 Pulse Ox 98 01/08/25 10:00 FiO2 30 01/07/25 12:37 Intake & Output 01/07/25 01/08/25 01/08/25 18:59 06:59 18:59 Intake Total 963.753 600.550 404.025 Output Total 1490 910 240 Balance -526.247 -309.450 164.025 Intake: IV 125 210 400 Piperacillin-Tazobactam 3 75 200 400 .375 gm In Sodium Chloride 0.9% 100 ml @ 25 mls/hr IVPB Q12HR [facility] Rx #:[id number] Sodium Chloride 0.9% 1, 50 10 000 ml @ 130 mls/hr IV . Q7H42M [facility] Rx#:[id number] Intake, IV Titration 158.753 190.550 4.025 Amount Norepinephrine 4 mg In 118.753 190.550 4.025 Sodium Chloride 0.9% 250 ml @ 0.03 MCG/KG/MIN 11. 147 mls/hr IV .[id number] [facility] Rx#:[id number] Piperacillin-Tazobactam 3 40 .375 gm In Sodium Chloride 0.9% 100 ml @ 25 mls/hr IVPB Q8H [facility] Rx#: [id number] Oral 680 200 Output: Urine 1490 910 240 Other: Voiding Method Indwelling Catheter Indwelling Catheter Indwelling Catheter # Bowel Movements 1 - Exam Patient is seen in the ICU Maintained on nasal cannula. Off of BiPAP Examination of the heart S1 and S2 Examination of the lungs bilateral breath sounds are heard Abdomen is soft nontender Examination of lower extremities shows chronic skin changes, no significant edema - Labs CBC & Chem 7: 01/08/25 04:14 01/08/25 04:14 Labs: Abnormal Lab Results - Last 24 Hours (Table) 01/07/25 01/07/25 01/08/25 Range/Units 12:26 15:55 00:15 RBC 3.55 L 2.99 L (4.30-5.90) m/uL Hgb 8.5 L 7.4 L (13.0-17.5) gm/dL Hct 29.3 L 24.5 L (39.0-53.0) % MCH 23.8 L 24.9 L (25.0-35.0) pg MCHC 28.8 L 30.4 L (31.0-37.0) g/dL RDW 17.6 H 17.9 H (11.5-15.5) % Plt Count 110 L 115 L (150-450) k/uL Chloride (98-107) mmol/L BUN (9-20) mg/dL Creatinine (0.66-1.25) mg/dL Glucose (74-99) mg/dL Calcium (8.4-10.2) mg/dL Troponin I 12.200 H* (0.000-0.034) ng/mL 01/08/25 01/08/25 Range/Units 04:14 04:14 RBC 3.32 L (4.30-5.90) m/uL Hgb 8.4 L (13.0-17.5) gm/dL Hct 27.7 L (39.0-53.0) % MCH (25.0-35.0) pg MCHC 30.1 L (31.0-37.0) g/dL RDW 18.1 H (11.5-15.5) % Plt Count 120 L (150-450) k/uL Chloride 108 H (98-107) mmol/L BUN 60 H (9-20) mg/dL Creatinine 2.15 H (0.66-1.25) mg/dL Glucose 106 H (74-99) mg/dL Calcium 8.0 L (8.4-10.2) mg/dL Troponin I (0.000-0.034) ng/mL Assessment and Plan Assessment: 1. Acute kidney injury, ATN, nonoliguric secondary to hypotension and anemia. Check UA. CT abdomen does not show any evidence of obstruction. 2. Chronic kidney disease stage IIIb with baseline creatinine 1.4 to 1.5 mg/dL. Previous UA showed trace protein on 09/29/2024. Etiology is likely nephrosclerosis 3. GI bleed status post packed RBCs transfusion x4 along with FFP and 1 unit of platelets 4. Anemia from acute blood loss from acute GI bleed 5. Acute hypoxic respiratory failure secondary to CHF exacerbation 6. Elevated troponins, cardiology on consult Plan: Maintain on scheduled dose of IV Lasix Check UA Repeat labs in a.m. Add Aranesp Check iron profile
--- NOTE | 2025-01-08 11:19 | P.PN ---
Subjective Progress Note Date: 01/08/25 CHIEF COMPLAINT: GI bleed HISTORY OF PRESENT ILLNESS: Patient is currently in the ICU. He remains on a s mall dose of Levophed. He had colonoscopy completed yesterday with no active bleeding reported. Did report scattered sigmoid diverticulosis and hemorrhoids. Patient has had no further bowel movements or bleeding. Hemoglobin stable at 8.4. He is tolerating diet. Denies any abdominal pain. Afebrile. Mild tachycardia resolved. Shortness of breath improving. He is receiving IV Lasix. PHYSICAL EXAM: VITAL SIGNS: Reviewed GENERAL: Well-developed in no acute distress. HEENT: No sclera icterus. Extraocular movements grossly intact. Moist buccal mucosa. Head is atraumatic, normocephalic. Hears conversational speech. No nasal drainage. NECK: Supple without lymphadenopathy. Patient has a skin lesion growth on the left side of his neck and left earlobe CHEST: Patient appears short of breath CARDIOVASCULAR: Palpable 2+ radial pulses. ABDOMEN: Soft. Nondistended. Nontender. MUSCULOSKELETAL: No clubbing or cyanosis. NEUROLOGIC: No focal or lateralizing signs. Cranial nerves II through XII grossly intact. PSYCH: Appropriate affect. Alert and oriented to person, place and time. SKIN: Pale ASSESSMENT: 1. Acute GI bleed likely due to a diverticular bleed 2. Acute blood loss anemia status post blood transfusion 3. Status post EGD revealing duodenitis and gastritis 4. Acute on chronic renal failure 5. History of coronary artery disease and NH on Plavix at home 6. History of melanoma 7. Fluid overload PLAN: -No surgical intervention planned -Continue Zosyn for empiric treatment of diverticulitis -Continue IV Protonix -Continue to monitor for any signs or symptoms of bleeding -Continue to monitor hemoglobin -Continue supportive care -Continue to hold Plavix Physician Orchid Transplanter note has been reviewed by physician. Signing provider agrees with the documented findings, assessment, and plan of care. Objective - Vital Signs Vital signs: Vital Signs Temp 98.3 F 01/08/25 08:00 Pulse 92 01/08/25 11:04 Resp 27 H 01/08/25 11:00 BP 97/65 01/08/25 11:00 Pulse Ox 100 01/08/25 11:00 FiO2 30 01/07/25 12:37 Intake & Output 01/07/25 01/08/25 01/08/25 18:59 06:59 18:59 Intake Total 963.753 600.550 504.025 Output Total 1490 910 405 Balance -526.247 -309.450 99.025 Intake: IV 125 210 500 Piperacillin-Tazobactam 3 75 200 500 .375 gm In Sodium Chloride 0.9% 100 ml @ 25 mls/hr IVPB Q12HR [facility] Rx #:[id number] Sodium Chloride 0.9% 1, 50 10 000 ml @ 130 mls/hr IV . Q7H42M [facility] Rx#:[id number] Intake, IV Titration 158.753 190.550 4.025 Amount Norepinephrine 4 mg In 118.753 190.550 4.025 Sodium Chloride 0.9% 250 ml @ 0.03 MCG/KG/MIN 11. 147 mls/hr IV .[id number] [facility] Rx#:[id number] Piperacillin-Tazobactam 3 40 .375 gm In Sodium Chloride 0.9% 100 ml @ 25 mls/hr IVPB Q8H [facility] Rx#: [id number] Oral 680 200 Output: Urine 1490 910 405 Other: Voiding Method Indwelling Catheter Indwelling Catheter Indwelling Catheter # Bowel Movements 1 - Labs CBC & Chem 7: 01/08/25 04:14 01/08/25 04:14 Labs: Abnormal Lab Results - Last 24 Hours (Table) 01/07/25 01/07/25 01/08/25 Range/Units 12:26 15:55 00:15 RBC 3.55 L 2.99 L (4.30-5.90) m/uL Hgb 8.5 L 7.4 L (13.0-17.5) gm/dL Hct 29.3 L 24.5 L (39.0-53.0) % MCH 23.8 L 24.9 L (25.0-35.0) pg MCHC 28.8 L 30.4 L (31.0-37.0) g/dL RDW 17.6 H 17.9 H (11.5-15.5) % Plt Count 110 L 115 L (150-450) k/uL Chloride (98-107) mmol/L BUN (9-20) mg/dL Creatinine (0.66-1.25) mg/dL Glucose (74-99) mg/dL Calcium (8.4-10.2) mg/dL Troponin I 12.200 H* (0.000-0.034) ng/mL 01/08/25 01/08/25 Range/Units 04:14 04:14 RBC 3.32 L (4.30-5.90) m/uL Hgb 8.4 L (13.0-17.5) gm/dL Hct 27.7 L (39.0-53.0) % MCH (25.0-35.0) pg MCHC 30.1 L (31.0-37.0) g/dL RDW 18.1 H (11.5-15.5) % Plt Count 120 L (150-450) k/uL Chloride 108 H (98-107) mmol/L BUN 60 H (9-20) mg/dL Creatinine 2.15 H (0.66-1.25) mg/dL Glucose 106 H (74-99) mg/dL Calcium 8.0 L (8.4-10.2) mg/dL Troponin I (0.000-0.034) ng/mL
[2025-01-08 11:41] LABS: Appearance,Urine Turbid (Clear); Bacteria,Urine Occasional /hpf; Bilirubin,Urine Negative (Negative); Blood,Urine Large (Negative); Color,Urine Light Yellow; Glucose,Urine (UA) Negative (Negative); Ketones,Urine Negative (Negative); Leukocyte Esterase,Urine Large (Negative); Mucus,Urine Occasional /hpf; Nitrite,Urine Negative (Negative); Protein,Urine 1+ (Negative); RBC,Urine >182 /hpf (0-5); Specific Gravity,Urine 1.011 (1.001-1.035); Urobilinogen,Urine <2.0 mg/dL (<2.0); WBC,Urine >182 /hpf (0-5)
[2025-01-08] MEDS: DARBEPOETIN ALFA 60 MCG/0.3 ML SYRINGE SQ SCH (11:46)
--- NOTE | 2025-01-08 12:58 | P.PN ---
Subjective Progress Note Date: 01/08/25 Principal diagnosis: Gastrointestinal bleed. Pulmonary consult dated January 06, 2025. 84-year-old male who presented to the emergency department, at 8:30 in the morning, on January 06, with a lower GI bleed. The patient was initially evaluated by Dr. Mason. He is 1 who called me. The patient came in via EMS, with a large bloody bowel movement, and, was evaluated in the ER, and was also complaining of nausea, and abdominal discomfort. The patient's initial hemoglobin was only 5.7. The patient received DDAVP, Protonix, saline resuscitation, 2 units of PRBCs, 2 units of fresh frozen plasma, and 1 unit of platelets. He is currently on 3 L. The GI doctor was called, and plans to do a scope on this patient. The patient is seen in room 1, in the emergency department. White count 12.5, hemoglobin 5.7, hematocrit 20.1, and platelet count 3-27,000. PT 14, INR 1.3, PTT 20.9. Sodium 139, potassium 5.4, chlorides 107, CO2 12, anion gap 20, BUN 51, creatinine 2.03. Glucose is 123. Calcium is 8.1. Chest x-ray shows a small left-sided pleural effusion. Dr. Zaldivar performed an EGD, which revealed retained food in the stomach, no evidence of active upper GI bleed, mild duodenitis, and small hiatal hernia. Progress note dated January 07, 2025. 84-year-old male seen yesterday in consultation in the emergency department. The patient was admitted with a diagnosis of lower GI bleed. He did have an EGD, which did not show any active bleeding. He is scheduled for colonoscopy today. Since coming here, he has received 4 units of packed red blood cells, 2 units of fresh frozen plasma, 1 unit of platelets, and DDAVP. He is currently getting norepinephrine at 5 mcg/min, saline at KVO, and nasal O2 at 4 L. He did go on BiPAP for period of time, from 10 PM to 4 AM, with settings of 12/5, and 30%. Today, we will check a BMP, add DuoNebs to his regimen, check a pro calcitonin level, and check troponins. I did talk to the patient about CODE STATUS. White count 12.1, hemoglobin 8.3, hematocrit 28.3, platelet count 158,000. Sodium 143, potassium 4.9, chlorides 111, CO2 22, BUN 59, creatinine 2.17. Leukosis 106. Calcium 8.1. Troponin was 16.5. N-terminal proBNP 11,600. Procalcitonin levels pending. Chest x-ray is consistent with CHF. Progress note dated January 08, 2025. 84-year-old male seen 2 days ago in consultation. He was seen initially in the emergency department, with a GI bleed. He had an EGD that was normal, and a colonoscopy which revealed diverticular disease, and hemorrhoids. He has had no further bleeding. He has received a total of 4 units of packed red blood cells, 2 units of fresh frozen plasma, 1 unit of platelets, DDAVP. Yesterday, he was on norepinephrine. Today, he was seen in room 256. He is on 4 L of oxygen. He is getting saline at KVO. His norepinephrine is running at 3.4 mcg/min. He has not used the BiPAP. His procalcitonin level was 0.47. Will go to discontinue the Zosyn. He likely had a non-ST segment elevation myocardial infarction. He was seen by cardiology. White count 8.5, hemoglobin 8.4, hematocrit 27.7, platelet count 120,000. Sodium 139, potassium 4.2, chlorides 108, CO2 24, BUN 60, creatinine 2.15. Calcium is 8. Urine suggest the possibility of a urinary tract infection. The patient's chest x-ray shows cardiomegaly, and changes of CHF. Objective - Vital Signs Vital signs: Vital Signs Temp 96.7 F L 01/08/25 12:00 Pulse 110 H 01/08/25 12:00 Resp 27 H 01/08/25 12:00 BP 89/70 01/08/25 12:00 Pulse Ox 98 01/08/25 12:00 FiO2 30 01/07/25 12:37 Intake & Output 01/07/25 01/08/25 01/08/25 18:59 06:59 18:59 Intake Total 963.753 600.550 604.025 Output Total 1490 910 550 Balance -526.247 -309.450 54.025 Intake: IV 125 210 600 Piperacillin-Tazobactam 3 75 200 600 .375 gm In Sodium Chloride 0.9% 100 ml @ 25 mls/hr IVPB Q12HR [facility] Rx #:[id number] Sodium Chloride 0.9% 1, 50 10 000 ml @ 130 mls/hr IV . Q7H42M [facility] Rx#:[id number] Intake, IV Titration 158.753 190.550 4.025 Amount Norepinephrine 4 mg In 118.753 190.550 4.025 Sodium Chloride 0.9% 250 ml @ 0.03 MCG/KG/MIN 11. 147 mls/hr IV .[id number] [facility] Rx#:[id number] Piperacillin-Tazobactam 3 40 .375 gm In Sodium Chloride 0.9% 100 ml @ 25 mls/hr IVPB Q8H [facility] Rx#: [id number] Oral 680 200 Output: Urine 1490 910 550 Other: Voiding Method Indwelling Catheter Indwelling Catheter Indwelling Catheter # Bowel Movements 1 - Exam Mild respiratory distress, oriented 3. The patient is currently 4 liters of o xygen. He is very pale. HEENT examination is grossly unremarkable. Mucous membranes are moist. No oral lesions. Neck supple. Full range of motion. No adenopathy thyromegaly or neck vein distention. Cardiovascular examination reveals regular rhythm rate. S1-S2 normal. No S3 or S4. No discernible murmur noted. Lungs reveal scattered rhonchi and crackles. Breath sounds equal. No wheezes. Abdomen soft bowel sounds are heard. No masses or tenderness. Dried blood is noted in the area of the groin, over his lower abdomen, scrotum, and penis. Extremities are intact. No cyanosis clubbing or edema. Skin is without rash or lesion. Neurologic examination is brief but nonfocal. - Labs CBC & Chem 7: 01/08/25 04:14 01/08/25 04:14 Labs: Abnormal Lab Results - Last 24 Hours (Table) 01/07/25 01/07/25 01/08/25 Range/Units 12:26 15:55 00:15 RBC 3.55 L 2.99 L (4.30-5.90) m/uL Hgb 8.5 L 7.4 L (13.0-17.5) gm/dL Hct 29.3 L 24.5 L (39.0-53.0) % MCH 23.8 L 24.9 L (25.0-35.0) pg MCHC 28.8 L 30.4 L (31.0-37.0) g/dL RDW 17.6 H 17.9 H (11.5-15.5) % Plt Count 110 L 115 L (150-450) k/uL Chloride (98-107) mmol/L BUN (9-20) mg/dL Creatinine (0.66-1.25) mg/dL Glucose (74-99) mg/dL Calcium (8.4-10.2) mg/dL Troponin I 12.200 H* (0.000-0.034) ng/mL Urine Protein (Negative) Urine Blood (Negative) Ur Leukocyte Esterase (Negative) Urine RBC (0-5) /hpf Urine WBC (0-5) /hpf Urine WBC Clumps (None) /hpf Urine Bacteria (None) /hpf Urine Mucus (None) /hpf 01/08/25 01/08/25 01/08/25 Range/Units 04:14 04:14 11:11 RBC 3.32 L (4.30-5.90) m/uL Hgb 8.4 L (13.0-17.5) gm/dL Hct 27.7 L (39.0-53.0) % MCH (25.0-35.0) pg MCHC 30.1 L (31.0-37.0) g/dL RDW 18.1 H (11.5-15.5) % Plt Count 120 L (150-450) k/uL Chloride 108 H (98-107) mmol/L BUN 60 H (9-20) mg/dL Creatinine 2.15 H (0.66-1.25) mg/dL Glucose 106 H (74-99) mg/dL Calcium 8.0 L (8.4-10.2) mg/dL Troponin I (0.000-0.034) ng/mL Urine Protein 1+ H (Negative) Urine Blood Large H (Negative) Ur Leukocyte Esterase Large H (Negative) Urine RBC >182 H (0-5) /hpf Urine WBC >182 H (0-5) /hpf Urine WBC Clumps Occasional H (None) /hpf Urine Bacteria Occasional H (None) /hpf Urine Mucus Occasional H (None) /hpf Assessment and Plan Assessment: Acute lower GI bleed, with severe anemia. Rule out non-ST segment elevation myocardial infarction. Probable congestive heart failure, secondary to non-ST segment elevation myocardial infarction. History of previous myocardial infarction. History of asthma. History of CVA. History of hyperlipidemia. History of hypertension. History of melanoma, with possible metastatic melanoma. History of osteoarthritis. Plan: Plan dated January 06, 2025. The patient was seen in the emergency department, room #1. The patient presented via the EMS, with lower GI bleed. He was having bright red bleeding per rectum. The patient's initial hemoglobin was 5.7. He was seen by Dr. Mason in the emergency department, and received 2 units of PRBCs, 2 units of fresh frozen plasma, and 1 unit of platelets. In addition, the patient received DDAVP, Protonix, saline at 130 cc an hour, and nasal O2 at 3 L. The patient will be admitted to the intensive care unit, for further monitoring and management. The patient had an EGD by Dr. Zaldivar which did not show any active GI bleeding. We will continue to follow make recommendations along the way. Prognosis is guarded. Frequent hemoglobin checks. Hemodynamic status is stable. Plan dated January 07, 2025. The patient's chest x-ray is consistent with CHF/fluid overload. The patient's BNP was quite high. In addition, the troponin level was very high. We will going to have cardiology see this patient. The patient is apparently scheduled for a colonoscopy today. He has received a total of 4 units of PRBCs, 2 units of fresh frozen plasma, 1 unit of platelets, and DDAVP since he has been here. His EGD done yesterday did not reveal any active bleeding. Currently, he is hypotensive, and requires norepinephrine at 5 mcg/min. He also is using BiPAP intermittently, with settings of 12/5, and 30%. Labs, x-rays, and all medications are reviewed. Prognosis is guarded. We will continue to follow make recommendations. Dictation was produced using [employer] software. Please excuse any grammatical, word or spelling errors. Plan dated January 08, 2025. The patient is seen today in room 256. He is currently on 4 L of oxygen by nasal cannula. He is getting saline at KVO, and norepinephrine for blood pressure support of 3.4 mcg/min. Chest x-ray shows cardiomegaly, changes of pulmonary vascular congestion, and CHF. He has not used the BiPAP. His colonoscopy revealed evidence of diverticular disease, and hemorrhoids. There is been no further bleeding. Procalcitonin level is 0.47. Zosyn is discontinued. The patient has received a total of 4 units of PRBCs, 2 units of fresh frozen plasma, and 1 unit of platelets. He also received DDAVP. All labs, x-rays, and medications are reviewed. He remains critically ill. Prognosis is guarded. We will continue to follow the patient, make recommendations. Dictation was produced using [employer] dictation software. Please excuse any grammatical, word or spelling errors. Time with Patient: Greater than 30
[2025-01-08] MEDS: DOBUTamine DRIP 500 MG in DEXTROSE/WATER 1 250ML.BAG IV SCH (15:36)
[2025-01-08 15:39] LABS: % Iron Saturation 2.7 (15.00-50.00)
--- NOTE | 2025-01-08 15:40 | P.PN ---
Subjective Interval History: History of present illness: 89-year-old male patient with past medical history significant for coronary artery disease status post stenting 2021, ischemic cardiomyopathy with a EF 40 to 45%, history of CVA with left-sided residual deficits, hypertension, hyperlipidemia, hard of hearing, history of skin cancer who presented to ER with a complaint of blood in the stools. Patient was brought to the ER by EMS, was noted to have large bloody bowel movement, was complaining of dizziness, also complained of nausea and abdominal discomfort. Patient was afebrile on presentation, was tachycardic and hypotensive, initially was on on room air, later on required supplemental oxygen 2 L after IV fluids. WBCs 12.5, hemoglobin 5.7, came up to 7.4 after 3 units. Platelet 227. INR 1.3. Sodium 139, potassium 5.4, chloride 107, CO2 12, BUN 51, creatinine 2.03, GFR 30. Liver profile unremarkable. Chest x-ray showed small left pleural effusion with left basilar opacities, diffuse interstitial prominence. 01/07--patient was seen and examined today. Patient is afebrile, heart rate 91, respiratory rate 27, blood pressure 99/56, saturating 99%, currently on BiPAP with 30% FiO2. WBCs 12.1, hemoglobin 8.3, platelet 158. Sodium 143, potassium 4.9, BUN 59, creatinine 2.17. Troponin was 16.5, went up to 12.2. proBNP 11,600. Patient underwent colonoscopy today which showed normal-appearing colon from rectum to cecum with no evidence of colitis or colorectal neoplasia, no active GI bleed, scattered sigmoid diverticulosis. Grade 2 hemorrhoids. 01/08--patient initially presented to ED with GI bleed, mass transferred to ICU for GI bleed, hemorrhagic shock, requiring Levophed, underwent EGD and colonoscopy, showed diverticular disease and hemorrhoids, required 4 unit of packed RBCs, 2 units of fresh frozen plasma, 1 unit of platelets, DDAVP, no further bleeding at this point, hemoglobin is now stable. Remains on norep inephrine. On 4 L oxygen. Cardiology following for NSTEMI. Patient is afebrile, heart rate 92, respiratory rate 27, saturating 100% on 3 L. Blood pressure is soft 93/56. Patient currently on Levophed. Chest x-ray showed pleural effusion, CHF. Echocardiogram showed severe LV dysfunction with EF less than 20%, RV enlargement, moderate to severe pulmonary hypertension, reduced aortic valve excursion/opening. WBCs 8.5, hemoglobin 8.4, platelet 120. Sodium 139, potassium 4.2, chloride 102, CO2 24, BUN 60, creatinine 2.15. UA showed large leukocyte Estrace, RBCs WBCs. Patient is currently on Zosyn. ICU, nephrology, cardiology GI has been consulted. Assessment and plan: Acute lower GI bleed: Severe anemia: Acute blood loss anemia Hemorrhagic shock: BO on CKD: Suspect prerenal secondary to hypovolemia, hypotension Acute on chronic diastolic CHF: Hyperkalemia: History of CAD/PCI in 2021: Severe cardiomyopathy with EF less than 20% Moderate to severe pulmonary hypertension Aortic valve stenosis: Elevated troponin: Likely demand ischemia. Hypertension Hyperlipidemia Hard of hearing History of CVA with left-sided weakness Acute hypoxic respiratory failure Fluid overload: Skin cancer: History of melanoma Osteoarthritis History of asthma Plan Presented with bright red blood in the stools, initial hemoglobin 5.7, received 4 unit of packed RBCs, 2 units of FFP, 1 unit of platelet, DDAVP. Monitor H&H every 6 hour, transfuse for hemoglobin less than 7.0. GI consulted status post EGD showed no active GI bleed. Colonoscopy 3/ negative for any active bleed, per GI likely to diverticular bleed which is stopped now. GI and general surgery consulted and following CT abdomen pelvismoderate bilateral pleural effusion, dependent airspace consolidation, abdominal ascites, dilated small bowel measuring up to 2.7 cm, atrophic kidneys, diverticulosis. PPI Zosyn ICU consulted Maintain at least 2 peripheral IVs Monitor vitals closely Hold aspirin and Plavix Hold antihypertensives IV diuresis for fluid overload. Nephrology consultedmonitor renal function, monitor potassium, IV diuresis for fluid overload, hold nephrotoxin. Cardiology consulted--echo showed EF less than 20%, decreased opening/excursion of aortic valve, moderate to severe pulmonary hypertension. DVT prophylaxis SCD Monitor vital signs and labs Labs and medication were reviewed. Continue same treatment. Further recommendations as per clinical course of the patient PHYSICAL EXAMINATION: GENERAL: Hard of hearing. Ill-appearing. HEENT: EOMI, Sclerae anicteric, Moist Mucous membranes Neck: Supple, Non tender, No JVD PULMONARY: Equal breath souds B/L, No wheezing, No crackles. CARDIOVASCULAR: S1, S2 present. No murmurs, rubs, or gallops. ABDOMEN: Soft, nontender, nondistended, normoactive bowel sounds. No guarding or rebound tenderness. MUSCULOSKELETAL: No edema, No cyanosis. No clubbing. Normal ROM. Intact peripheral pulses. NEUROLOGICAL: CN 2-12 grossly intact. No FND Skin: Left neck skin lesion-malignant appearing REVIEW OF SYSTEMS: CONSTITUTIONAL: No fever or chills. CARDIOVASCULAR: No chest pain, palpitations or syncope. PULMONARY: No shortness of breath, no cough, sore throat. GASTROINTESTINAL: No nausea, vomiting, diarrhea, abdominal pain. : No Dysuria, urgency, frequency. Extremities: No edema. NEUROLOGICAL: No headaches, no weakness, or numbness Dictation was produced using [employer] dictation software. please excuse any grammatical, word or spelling errors. Objective - Vital Signs Vital signs: Vital Signs Temp 98.3 F 01/08/25 08:00 Pulse 92 01/08/25 11:04 Resp 27 H 01/08/25 11:00 BP 97/65 01/08/25 11:00 Pulse Ox 100 01/08/25 11:00 FiO2 30 01/07/25 12:37 Intake & Output 01/07/25 01/08/25 01/08/25 18:59 06:59 18:59 Intake Total 963.753 600.550 504.025 Output Total 1490 910 405 Balance -526.247 -309.450 99.025 Intake: IV 125 210 500 Piperacillin-Tazobactam 3 75 200 500 .375 gm In Sodium Chloride 0.9% 100 ml @ 25 mls/hr IVPB Q12HR [facility] Rx #:[id number] Sodium Chloride 0.9% 1, 50 10 000 ml @ 130 mls/hr IV . Q7H42M [facility] Rx#:[id number] Intake, IV Titration 158.753 190.550 4.025 Amount Norepinephrine 4 mg In 118.753 190.550 4.025 Sodium Chloride 0.9% 250 ml @ 0.03 MCG/KG/MIN 11. 147 mls/hr IV .[id number] [facility] Rx#:[id number] Piperacillin-Tazobactam 3 40 .375 gm In Sodium Chloride 0.9% 100 ml @ 25 mls/hr IVPB Q8H [facility] Rx#: [id number] Oral 680 200 Output: Urine 1490 910 405 Other: Voiding Method Indwelling Catheter Indwelling Catheter Indwelling Catheter # Bowel Movements 1 - Labs CBC & Chem 7: 01/08/25 04:14 01/08/25 04:14 Labs: Abnormal Lab Results - Last 24 Hours (Table) 01/07/25 01/07/25 01/08/25 Range/Units 12:26 15:55 00:15 RBC 3.55 L 2.99 L (4.30-5.90) m/uL Hgb 8.5 L 7.4 L (13.0-17.5) gm/dL Hct 29.3 L 24.5 L (39.0-53.0) % MCH 23.8 L 24.9 L (25.0-35.0) pg MCHC 28.8 L 30.4 L (31.0-37.0) g/dL RDW 17.6 H 17.9 H (11.5-15.5) % Plt Count 110 L 115 L (150-450) k/uL Chloride (98-107) mmol/L BUN (9-20) mg/dL Creatinine (0.66-1.25) mg/dL Glucose (74-99) mg/dL Calcium (8.4-10.2) mg/dL Troponin I 12.200 H* (0.000-0.034) ng/mL Urine Protein (Negative) Urine Blood (Negative) Ur Leukocyte Esterase (Negative) Urine RBC (0-5) /hpf Urine WBC (0-5) /hpf Urine WBC Clumps (None) /hpf Urine Bacteria (None) /hpf Urine Mucus (None) /hpf 01/08/25 01/08/25 01/08/25 Range/Units 04:14 04:14 11:11 RBC 3.32 L (4.30-5.90) m/uL Hgb 8.4 L (13.0-17.5) gm/dL Hct 27.7 L (39.0-53.0) % MCH (25.0-35.0) pg MCHC 30.1 L (31.0-37.0) g/dL RDW 18.1 H (11.5-15.5) % Plt Count 120 L (150-450) k/uL Chloride 108 H (98-107) mmol/L BUN 60 H (9-20) mg/dL Creatinine 2.15 H (0.66-1.25) mg/dL Glucose 106 H (74-99) mg/dL Calcium 8.0 L (8.4-10.2) mg/dL Troponin I (0.000-0.034) ng/mL Urine Protein 1+ H (Negative) Urine Blood Large H (Negative) Ur Leukocyte Esterase Large H (Negative) Urine RBC >182 H (0-5) /hpf Urine WBC >182 H (0-5) /hpf Urine WBC Clumps Occasional H (None) /hpf Urine Bacteria Occasional H (None) /hpf Urine Mucus Occasional H (None) /hpf
[2025-01-08] MEDS: FUROSEMIDE 10 MG/ML 4 ML VIAL IV STA (16:39)
[2025-01-08] MEDS: FUROSEMIDE 10 MG/ML 4 ML VIAL IV SCH (19:35)
--- NOTE | 2025-01-08 21:33 | P.CRDCN ---
History of Present Illness Consult date: 01/07/25 History of present illness: HISTORY OF PRESENTING ILLNESS: Patient is a 89-year-old male with past medical history of CAD status post PCI in 2021, ischemic cardiomyopathy with a EF of 40 to 45%, history of CVA, left- sided residual deficit, hypertension, dyslipidemia, skin cancer, difficulty in hearing. He presented to the ER because of blood in stools. Patient was brought to the ER by EMS and was noted to have a large bloody bowel movement and patient was complaining of dizziness nausea and abdominal discomfort. On admission he was tachycardic with hypotension. Admission labs shows hemoglobin of 5.7, received 3 units of blood transfusion. Platelets were 227. INR was 1.3. Creatinine was 2.03, GFR 30. On admission he had an urgent upper GI endoscopy which did not show any active upper GI bleeding. Mild hiatal hernia, mild duodenitis. Following this on 01/07/2027 patient underwent colonoscopy which showed grade 2 hemorrhoids, normal- appearing rectum and colon, no active GI bleeding, scattered sigmoid diverticulosis. On admission his EKG and telemetry showed significant atrial and ventricular ectopy for which cardiology was consulted. For this we gave patient 1 amp of bicarb, calcium gluconate and 2 g of magnesium sulfate. On admission he also had significant elevation of troponin at 16, repeat at 12. On admission he had significant lactic acidosis with lactate of 6.04 Patient was last admitted in September 2021 where he was seen by cardiology. At that time he had evidence of mechanical fall rhabdomyolysis and NSTEMI with a troponin level of 24. Prior cardiac workup His echo from June 2024 shows an EF of 55%, mild LVH, trace aortic regurgitation, mild aortic stenosis. Cardiac cath from August 2022 shows 80% proximal RCA, 50% mid to distal RCA, 80% proximal PDA, PCI of mid RCA with 2 overlapping RICHARDSON. PCI of PDA. Last echo from September 2024 shows an EF of 40%, anteroapical and septal hypokinesia, moderately impaired LV systolic function. Moderate pulmonary hypertension, mild aortic stenosis mean gradient 11 mmHg, REVIEW OF SYSTEMS: Unable to be obtained as patient is very lethargic PHYSICAL EXAMINATION: Neck: Brisk carotid upstroke, mildly elevated jugular venous distention. Lungs: Poor respiratory effort with mild crackles and rhonchi Heart: Regular rate and rhythm, mild systolic murmur audible Abdomen: Soft nontender, mild tenderness, positive bowel sounds Extremities: 1-2+ pitting edema in thighs bilaterally Neuro: Alert, oritented, generalized weak, detailed neuro exam was not performed. ASSESSMENT: # Acute lower GI bleeding with severe anemia # Mixed shock state, with component of hemorrhagic and distributive shock # History of cardiomyopathy with a EF 40 to 45% from September 2024 # CAD status post PCI to RCA and PDA in 2021 # History of skin cancer, possible metastatic melanoma # History of CVA PLAN: Continue supportive care in ICU Monitor hemodynamics Continue pressor support, monitor hemoglobin level and watch for any signs of bleeding. Overall patient's prognosis very poor. Lenin Tovar MD, FACC, RPVI Thank you for allowing [facility] to participate in this patient's care. Feel free to reach out in case of any followup questions. Past Medical History Past Medical History: Asthma, Cancer, CVA/TIA, Hearing Disorder / Deafness, Hyperlipidemia, Hypertension, Myocardial Infarction (CO), Osteoarthritis (OA) Additional Past Medical History / Comment(s): CVA 1992-left side weakness- uses walker, past wound on lower left leg- treated at 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 Other surgical hx: DEBRIDEMENT OF LEFT CALF/LEG, umbilical hernia repair, lumbar spine surgery Past Anesthesia/Blood Transfusion Reactions: No Reported Reaction Date of Last Stent Placement:: 2021 Past Psychological History: No Psychological Hx Reported Smoking Status: Former smoker Past Alcohol Use History: None Reported Past Drug Use History: None Reported - Past Family History Mother History Unknown: Yes Father History Unknown: Yes Medications and Allergies Home Medications Medication Instructions Recorded Confirmed Type Atorvastatin [Lipitor] 40 mg PO DAILY #90 tab 07/23/22 01/06/25 Rx Clopidogrel [Plavix] 75 mg PO DAILY 08/14/22 01/06/25 History Nitroglycerin Sl Tabs [Nitrostat] 0.4 mg SUBLINGUAL Q5M PRN 09/28/24 01/06/25 History Aspirin 81 mg PO DAILY #30 tab 09/30/24 01/06/25 Rx Ferrous Sulfate [Feosol] 325 mg PO DAILY #30 tab 09/30/24 01/06/25 Rx Isosorbide Mononitrate ER [Imdur] 60 mg PO DAILY 01/06/25 01/06/25 History Allergies Allergy/AdvReac Type Severity Reaction Status Date / Time No Known Allergies Allergy Verified 01/06/25 09:06 Physical Exam Vitals: Vital Signs Temp Pulse Resp BP Pulse Ox FiO2 01/08/25 21:15 96 22 90/49 100 01/08/25 21:00 96 18 93/56 100 01/08/25 20:45 96 23 95/64 100 01/08/25 20:30 92 22 93/62 100 01/08/25 20:18 87 01/08/25 20:15 98 30 H 98/61 100 01/08/25 20:10 50 01/08/25 20:09 93 01/08/25 20:00 97.9 F 91 26 H 89/72 99 50 01/08/25 19:45 87 23 83/54 100 01/08/25 19:30 89 22 88/58 100 01/08/25 19:15 89 20 91/58 100 01/08/25 19:00 89 22 90/58 100 01/08/25 18:45 93 21 94/60 100 01/08/25 18:30 96 37 H 90/62 100 01/08/25 18:15 92 21 93/59 99 01/08/25 18:00 95 25 H 89/63 99 01/08/25 17:45 91 30 H 103/68 100 01/08/25 17:31 50 01/08/25 17:30 103 H 32 H 109/66 98 01/08/25 17:15 102 H 36 H 113/82 94 L 01/08/25 17:00 108 H 31 H 114/101 93 L 01/08/25 16:45 101 H 30 H 80/62 98 01/08/25 16:30 92 35 H 91/61 95 01/08/25 16:15 94 28 H 93/63 98 01/08/25 16:00 97.8 F 92 29 H 89/64 99 01/08/25 15:45 96 29 H 87/61 99 01/08/25 15:30 93 27 H 92/62 98 01/08/25 15:15 87 27 H 85/62 88 L 01/08/25 15:00 98 30 H 89/65 99 01/08/25 14:49 100 01/08/25 14:45 98 22 96/62 89 L 01/08/25 14:30 90 27 H 88/61 99 01/08/25 14:25 92 01/08/25 14:15 94 25 H 94/78 97 01/08/25 14:00 91 24 95/55 99 01/08/25 13:45 96 29 H 91/55 98 01/08/25 13:30 97 28 H 88/53 92 L 01/08/25 13:15 87 25 H 90/60 99 01/08/25 13:00 94 29 H 93/60 98 01/08/25 12:45 89 28 H 97/60 99 01/08/25 12:30 96 29 H 99/63 98 01/08/25 12:15 105 H 33 H 94/78 97 01/08/25 12:00 96.7 F L 110 H 27 H 89/70 98 01/08/25 11:45 92 24 91/55 96 01/08/25 11:30 86 24 90/63 99 01/08/25 11:15 96 24 88/57 98 01/08/25 11:04 92 01/08/25 11:00 92 27 H 97/65 100 01/08/25 10:54 92 01/08/25 10:45 94 24 94/69 100 01/08/25 10:30 98 30 H 91/57 100 01/08/25 10:15 93 21 94/64 98 01/08/25 10:00 92 30 H 94/68 98 01/08/25 09:45 91 32 H 93/56 99 01/08/25 09:30 93 54 H 98/68 97 01/08/25 09:15 97 45 H 94/66 96 01/08/25 09:00 96 27 H 88/68 96 01/08/25 08:45 105 H 28 H 97/61 97 01/08/25 08:30 115 H 23 88/67 98 01/08/25 08:15 109 H 34 H 101/64 97 01/08/25 08:00 98.3 F 109 H 37 H 99/73 97 01/08/25 07:48 102 H 01/08/25 07:45 104 H 28 H 98/64 100 01/08/25 07:36 100 01/08/25 07:30 100 27 H 98 01/08/25 07:15 112 H 30 H 113/98 97 01/08/25 07:00 118 H 34 H 98/63 99 01/08/25 06:45 103 H 20 84/51 99 01/08/25 06:30 85 21 85/66 99 01/08/25 06:15 81 20 86/57 99 01/08/25 06:00 93 23 99/69 99 01/08/25 05:45 92 32 H 84/57 99 01/08/25 05:30 96 22 92/74 99 01/08/25 05:15 94 22 90/54 99 01/08/25 05:00 114 H 22 84/58 99 01/08/25 04:45 93 22 90/64 99 01/08/25 04:30 98 24 96/49 100 01/08/25 04:15 89 45 H 91/64 100 01/08/25 04:00 92 22 90/57 99 01/08/25 03:45 104 H 31 H 84/56 99 01/08/25 03:30 99 27 H 83/56 97 01/08/25 03:15 104 H 32 H 90/59 98 01/08/25 03:00 101 H 26 H 86/64 97 01/08/25 02:45 87 26 H 86/62 100 01/08/25 02:30 109 H 27 H 85/56 97 01/08/25 02:15 118 H 33 H 76/52 100 01/08/25 02:00 106 H 18 82/57 97 01/08/25 01:45 98 22 85/57 99 01/08/25 01:30 110 H 30 H 98/53 98 01/08/25 01:15 97 30 H 91/58 97 01/08/25 01:00 95 24 79/61 97 01/08/25 00:45 101 H 35 H 83/64 99 01/08/25 00:30 103 H 24 94/58 98 01/08/25 00:15 101 H 27 H 90/68 97 01/08/25 00:06 112 H 31 H 90/68 99 01/08/25 00:00 98.8 F 100 25 H 80/56 100 01/07/25 23:45 96 30 H 80/59 99 01/07/25 23:30 111 H 33 H 82/52 99 01/07/25 23:15 101 H 24 83/59 97 01/07/25 23:00 106 H 33 H 87/61 98 01/07/25 22:45 110 H 29 H 79/59 98 01/07/25 22:30 104 H 22 87/59 100 01/07/25 22:15 89 22 79/50 100 01/07/25 22:00 90 26 H 85/52 100 01/07/25 21:45 113 H 22 81/49 100 Intake and Output 01/08/25 01/08/25 01/08/25 06:59 14:59 22:59 Intake Total 273.271 965.327 580 Output Total 440 760 730 Balance -166.729 205.327 -150 Intake: IV 100 700 100 Piperacillin-Tazobactam 3 100 700 100 .375 gm In Sodium Chloride 0.9% 100 ml @ 25 mls/hr IVPB Q12HR [facility] Rx #:[id number] Intake, IV Titration 173.271 25.327 Amount Norepinephrine 4 mg In 173.271 25.327 Sodium Chloride 0.9% 250 ml @ 0.03 MCG/KG/MIN 11. 147 mls/hr IV .[id number] [facility] Rx#:[id number] Oral 240 480 Output: Urine 440 760 730 Other: Voiding Method Indwelling Catheter Indwelling Catheter Indwelling Catheter Results 01/08/25 04:14 01/08/25 04:14 CBC 01/08/25 01/08/25 Range/Units 00:15 04:14 WBC 8.7 8.5 (3.8-10.6) k/uL RBC 2.99 L 3.32 L (4.30-5.90) m/uL Hgb 7.4 L 8.4 L (13.0-17.5) gm/dL Hct 24.5 L 27.7 L (39.0-53.0) % Plt Count 115 L 120 L (150-450) k/uL Comprehensive Metabolic Panel 01/08/25 Range/Units 04:14 Sodium 139 (137-145) mmol/L Potassium 4.2 (3.5-5.1) mmol/L Chloride 108 H (98-107) mmol/L Carbon Dioxide 24 (22-30) mmol/L BUN 60 H (9-20) mg/dL Creatinine 2.15 H (0.66-1.25) mg/dL Glucose 106 H (74-99) mg/dL Calcium 8.0 L (8.4-10.2) mg/dL Current Medications Generic Name Dose Route Start Last Admin Trade Name Freq PRN Reason Stop Dose Admin Albuterol/Ipratropium 3 ml 01/07/25 12:00 01/08/25 20:06 Ipratropium-Albuterol 3 Ml Neb INHALATION 3 ml RT-QID [facility] Administration Darbepoetin Champ 60 mcg 01/08/25 12:00 01/08/25 11:46 Darbepoetin Champ 60 Mcg/0.3 Ml Syringe SQ 60 mcg Q7D [facility] Administration Furosemide 40 mg 01/08/25 21:00 01/08/25 19:35 Furosemide 10 Mg/Ml 4 Ml Vial IV 40 mg Q12HR [facility] Administration Norepinephrine Bitartrate 4 mg 254 mls @ 11.147 mls/hr 01/06/25 20:30 01/08/25 08:30 / Sodium Chloride IV 0.03 mcg/kg/min .[id number] [facility] 11.147 mls/hr Titration Protocol 0.03 MCG/KG/MIN Piperacillin Sod/Tazobactam 100 mls @ 25 mls/hr 01/07/25 20:00 01/08/25 19:35 Sod 3.375 gm/ Sodium Chloride IVPB 25 mls/hr Q8H [facility] Administration Protocol Dobutamine HCl/Dextrose 500 mg 250 mls @ 8.445 mls/hr 01/08/25 15:30 01/08/25 15:36 / IV Solution IV 2.5 mcg/kg/min .Q24H [facility] 8.445 mls/hr Administration 2.5 MCG/KG/MIN Naloxone HCl 0.2 mg 01/06/25 09:17 Naloxone 0.4 Mg/Ml 1 Ml Vial IV Q2M PRN Opioid Reversal Pantoprazole Sodium 40 mg 01/06/25 21:00 01/08/25 19:35 Pantoprazole 40 Mg/10 Ml Vial IVP 40 mg BID TEO Administration Intake and Output 01/08/25 01/08/25 01/08/25 06:59 14:59 22:59 Intake Total 273.271 965.327 580 Output Total 440 760 730 Balance -166.729 205.327 -150 Intake: IV 100 700 100 Piperacillin-Tazobactam 3 100 700 100 .375 gm In Sodium Chloride 0.9% 100 ml @ 25 mls/hr IVPB Q12HR [facility] Rx #:[id number] Intake, IV Titration 173.271 25.327 Amount Norepinephrine 4 mg In 173.271 25.327 Sodium Chloride 0.9% 250 ml @ 0.03 MCG/KG/MIN 11. 147 mls/hr IV .[id number] [facility] Rx#:[id number] Oral 240 480 Output: Urine 440 760 730 Other: Voiding Method Indwelling Catheter Indwelling Catheter Indwelling Catheter 01/08/25 04:14 01/08/25 04:14
--- NOTE | 2025-01-08 21:42 | P.PN ---
Subjective Progress Note Date: 01/08/25 HISTORY OF PRESENTING ILLNESS: Patient is a 89-year-old male with past medical history of CAD status post PCI in 2021, ischemic cardiomyopathy with a EF of 40 to 45%, history of CVA, left- sided residual deficit, hypertension, dyslipidemia, skin cancer, difficulty in hearing. He presented to the ER because of blood in stools. Patient was brought to the ER by EMS and was noted to have a large bloody bowel movement and patient was complaining of dizziness nausea and abdominal discomfort. On admission he was tachycardic with hypotension. Admission labs shows hemoglobin of 5.7, received 3 units of blood transfusion. Platelets were 227. INR was 1.3. Creatinine was 2.03, GFR 30. On admission he had an urgent upper GI endoscopy which did not show any active upper GI bleeding. Mild hiatal hernia, mild duodenitis. Following this on 01/07/2027 patient underwent colonoscopy which showed grade 2 hemorrhoids, normal- appearing rectum and colon, no active GI bleeding, scattered sigmoid diverticulosis. On admission his EKG and telemetry showed significant atrial and ventricular ectopy for which cardiology was consulted. For this we gave patient 1 amp of bicarb, calcium gluconate and 2 g of magnesium sulfate. On admission he also had significant elevation of troponin at 16, repeat at 12. On admission he had significant lactic acidosis with lactate of 6.04 Patient was last admitted in September 2021 where he was seen by cardiology. At that time he had evidence of mechanical fall rhabdomyolysis and NSTEMI with a troponin level of 24. Prior cardiac workup His echo from June 2024 shows an EF of 55%, mild LVH, trace aortic regurgita tion, mild aortic stenosis. Cardiac cath from August 2022 shows 80% proximal RCA, 50% mid to distal RCA, 80% proximal PDA, PCI of mid RCA with 2 overlapping RICHARDSON. PCI of PDA. Last echo from September 2024 shows an EF of 40%, anteroapical and septal hypokinesia, moderately impaired LV systolic function. Moderate pulmonary hypertension, mild aortic stenosis mean gradient 11 mmHg, Progress note 01/08/2025 Patient is seen and examined at bedside this a.m. Hemoglobin has somewhat stabilized around 8. Kidney function is somewhat stable. She appears volume overloaded with 1-2+ pitting edema in bilateral thigh. He also has elevated JVP. He appears sick. Echo shows an EF of 20% globally reduced LVEF. Mildly dilated LV cavity. He does appear volume overloaded on physical examination. PHYSICAL EXAMINATION: Neck: Brisk carotid upstroke, elevated jugular venous distention. Lungs: Poor respiratory effort with mild crackles and rhonchi Heart: Regular rate and rhythm, mild systolic murmur audible Abdomen: Soft nontender, mild tenderness, positive bowel sounds Extremities: 1-2+ pitting edema in thighs bilaterally Neuro: Alert, oritented, generalized weak, detailed neuro exam was not performed. ASSESSMENT: # Acute lower GI bleeding with severe anemia # Mixed shock state, with component of hemorrhagic, distributive shock and cardiogenic shock # Acute HFrEF exacerbation. LVEF 20%. Likely competent of stress-induced cardiomyopathy on top of previously existing ischemic cardiomyopathy. # Elevated troponin, likely type II NSTEMI from demand supply mismatch # History of ischemic cardiomyopathy. # CAD status post PCI to RCA and PDA in 2021 # History of skin cancer, possible metastatic melanoma # History of CVA Cardiac testing Echo from this admission shows an EF of 20%, aortic stenosis with low-flow low gradient state. When compared to prior echo from September 2024, LVEF has dropped. Previous LVEF documented at 40%. PLAN: As hemoglobin has stabilized, start aspirin 81 mg from tomorrow. Start Lipitor 40 mg daily Start dobutamine drip low-dose at 2.5 mcg. Start Lasix 40 mg IV twice daily Avoid using beta-blockers. Goal MAP 65 mmHg. Monitor urine output, monitor electrolytes and kidney function. Monitor telemetry Continue pressor support, monitor hemoglobin level and watch for any signs of bleeding. Overall patient's prognosis very poor. Patient is not a candidate for heart catheterization or PCI because of low hemoglobin and poor kidney function at this time. On last admission September patient had a peak troponin of 32. It appears that patient has chronically elevated troponin enzyme. Objective - Vital Signs Vital signs: Vital Signs Temp 97.9 F 01/08/25 20:00 Pulse 96 01/08/25 21:15 Resp 22 01/08/25 21:15 BP 90/49 01/08/25 21:15 Pulse Ox 100 01/08/25 21:15 FiO2 50 01/08/25 20:10 Intake & Output 01/08/25 01/08/25 01/09/25 06:59 18:59 06:59 Intake Total 879.641 2121.327 100 Output Total 910 1020 470 Balance -309.450 425.327 -370 Intake: IV 210 700 100 Piperacillin-Tazobactam 3 200 700 100 .375 gm In Sodium Chloride 0.9% 100 ml @ 25 mls/hr IVPB Q12HR [facility] Rx #:[id number] Sodium Chloride 0.9% 1, 10 000 ml @ 130 mls/hr IV . [id number] [facility] Rx#:[id number] Intake, IV Titration 190.550 25.327 Amount Norepinephrine 4 mg In 190.550 25.327 Sodium Chloride 0.9% 250 ml @ 0.03 MCG/KG/MIN 11. 147 mls/hr IV .[id number] [facility] Rx#:[id number] Oral 200 720 Output: Urine 910 1020 470 Other: Voiding Method Indwelling Catheter Indwelling Catheter Indwelling Catheter - Labs CBC & Chem 7: 01/08/25 04:14 01/08/25 04:14 Labs: Abnormal Lab Results - Last 24 Hours (Table) 01/08/25 01/08/25 01/08/25 Range/Units 00:15 04:14 04:14 RBC 2.99 L 3.32 L (4.30-5.90) m/uL Hgb 7.4 L 8.4 L (13.0-17.5) gm/dL Hct 24.5 L 27.7 L (39.0-53.0) % MCH 24.9 L (25.0-35.0) pg MCHC 30.4 L 30.1 L (31.0-37.0) g/dL RDW 17.9 H 18.1 H (11.5-15.5) % Plt Count 115 L 120 L (150-450) k/uL Chloride 108 H (98-107) mmol/L BUN 60 H (9-20) mg/dL Creatinine 2.15 H (0.66-1.25) mg/dL Glucose 106 H (74-99) mg/dL Calcium 8.0 L (8.4-10.2) mg/dL Iron (65-175) UG/DL % Saturation (15.00-50.00) Urine Protein (Negative) Urine Blood (Negative) Ur Leukocyte Esterase (Negative) Urine RBC (0-5) /hpf Urine WBC (0-5) /hpf Urine WBC Clumps (None) /hpf Urine Bacteria (None) /hpf Urine Mucus (None) /hpf 01/08/25 01/08/25 Range/Units 04:14 11:11 RBC (4.30-5.90) m/uL Hgb (13.0-17.5) gm/dL Hct (39.0-53.0) % MCH (25.0-35.0) pg MCHC (31.0-37.0) g/dL RDW (11.5-15.5) % Plt Count (150-450) k/uL Chloride (98-107) mmol/L BUN (9-20) mg/dL Creatinine (0.66-1.25) mg/dL Glucose (74-99) mg/dL Calcium (8.4-10.2) mg/dL Iron 9 L (65-175) UG/DL % Saturation 2.70 L (15.00-50.00) Urine Protein 1+ H (Negative) Urine Blood Large H (Negative) Ur Leukocyte Esterase Large H (Negative) Urine RBC >182 H (0-5) /hpf Urine WBC >182 H (0-5) /hpf Urine WBC Clumps Occasional H (None) /hpf Urine Bacteria Occasional H (None) /hpf Urine Mucus Occasional H (None) /hpf
[2025-01-09 07:00] LABS: African American GFR (CKD) 33 (>60 ml/min/1.73 sqM); Anion Gap 7 mmol/L; Blood Urea Nitrogen 49 mg/dL (9-20); Calcium 7.6 mg/dL (8.4-10.2); Carbon Dioxide 26 mmol/L (22-30); Chloride 105 mmol/L (98-107); Glucose 100 mg/dL (74-99); Non-African American GFR(CKD) 29 (>60 ml/min/1.73 sqM); Potassium 3.4 mmol/L (3.5-5.1); Sodium 138 mmol/L (137-145)
--- NOTE | 2025-01-09 07:04 | XR ---
EXAMINATION TYPE: XR chest 1V portable DATE OF EXAM: 01/09/2025 COMPARISON: 01/08/2025 CLINICAL INDICATION: Male, 84 years old with history of chf, bipap, pleural effusion; TECHNIQUE: Single frontal view of the chest is obtained. FINDINGS: There is no interval change in the bilateral pleural effusions and marked interstitial opacity consis tent with vascular congestion and pulmonary edema. There is no pneumothorax. The osseous structures are intact. IMPRESSION: No change in the marked acute cardiopulmonary disease as described above. [facility], , 01/09/2025 7:02 AM
[2025-01-09 07:09] LABS: Anisocytosis Slight; Basophils % (A) 0 %; Eosinophils % (A) 1 %; HCT 23.9 % (39.0-53.0); HGB 7.3 gm/dL (13.0-17.5); Hypochromasia Marked; Lymphocytes # (A) 0.8 k/uL (1.0-4.8); Lymphocytes % (A) 18 %; MCH 24.9 pg (25.0-35.0); MCHC 30.4 g/dL (31.0-37.0); Mean Platelet Volume 9.4; Monocytes # (A) 0.3 k/uL (0-1.0); Monocytes % (A) 8 %; Neutrophils # (A) 3.2 k/uL (1.3-7.7); Neutrophils % (A) 72 %; Poikilocytosis Slight; RBC 2.91 m/uL (4.30-5.90); RDW 18.6 % (11.5-15.5); WBC 4.4 k/uL (3.8-10.6)
[2025-01-09 07:56] LABS: Platelet Count 86 k/uL (150-450)
[2025-01-09] MEDS ORDERED: Potassium Replacement Protocol 1 EACH MISC MISCELLANE PRN (07:59)
[2025-01-09] MEDS: POTASSIUM BICARBONATE/CIT AC 20 MEQ TABLET.EFF NG-TUBE SCH ×2 (08:10→13:21)
[2025-01-09] MEDS: FOLIC ACID-VIT B COMPLEX-VIT C 1 CAP PO SCH (10:34)
[2025-01-09] MEDS: SODIUM FERRIC GLUCONAT-SUCROSE 125 MG in SODIUM CHLORIDE 0.9% 100 ML IVPB SCH (10:56)
--- NOTE | 2025-01-09 11:19 | P.PN ---
Subjective Progress Note Date: 01/09/25 Patient is seen for follow-up for acute kidney injury. Underlying chronic kidney disease stage IIIb with baseline creatinine around 1.4 to 1.5 mg/dL. Admitted with GI bleed. Significant hypotension on initial admission. Status post IV hydration and developed volume overload with CHF exacerbation. Currently off of IV fluids and received Lasix yesterday. Serum creatinine staying at about 2.0 mg/dL. stable low BP, off dobutamine at this time low K level, started repletion protocol Urine output 1 L charted s/p Lasix 40 mg IV Objective - Vital Signs Vital signs: Vital Signs Temp 97.7 F 01/09/25 08:00 Pulse 108 H 01/09/25 11:00 Resp 23 01/09/25 11:00 BP 96/64 01/09/25 11:00 Pulse Ox 99 01/09/25 11:00 FiO2 50 01/09/25 04:00 Intake & Output 01/08/25 01/09/25 01/09/25 18:59 06:59 18:59 Intake Total 1445.327 351.413 600.991 Output Total 1020 1685 1100 Balance 425.327 -1333.587 -499.009 Weight 114.9 kg Intake: IV 700 200 400 Piperacillin-Tazobactam 3 700 200 .375 gm In Sodium Chloride 0.9% 100 ml @ 25 mls/hr IVPB Q12HR [facility] Rx #:[id number] Piperacillin-Tazobactam 3 400 .375 gm In Sodium Chloride 0.9% 100 ml @ 25 mls/hr IVPB Q8H [facility] Rx#: [id number] Intake, IV Titration 25.327 151.413 0.991 Amount Norepinephrine 4 mg In 25.327 151.413 0.991 Sodium Chloride 0.9% 250 ml @ 0.03 MCG/KG/MIN 11. 147 mls/hr IV .[id number] [facility] Rx#:[id number] Oral 720 200 Output: Urine 1020 1685 1100 Other: Voiding Method Indwelling Catheter Indwelling Catheter Indwelling Catheter - Exam Patient is seen in the ICU Maintained on nasal cannula. Off of BiPAP Examination of the heart S1 and S2 Examination of the lungs bilateral breath sounds are heard Abdomen is soft nontender Examination of lower extremities shows chronic skin changes, no significant edema - Labs CBC & Chem 7: 01/09/25 05:45 01/09/25 05:45 Labs: Abnormal Lab Results - Last 24 Hours (Table) 01/08/25 01/08/25 01/09/25 Range/Units 04:14 11:11 05:45 RBC 2.91 L (4.30-5.90) m/uL Hgb 7.3 L (13.0-17.5) gm/dL Hct 23.9 L (39.0-53.0) % MCH 24.9 L (25.0-35.0) pg MCHC 30.4 L (31.0-37.0) g/dL RDW 18.6 H (11.5-15.5) % Plt Count 86 L (150-450) k/uL Lymphocytes # 0.8 L (1.0-4.8) k/uL Potassium (3.5-5.1) mmol/L BUN (9-20) mg/dL Creatinine (0.66-1.25) mg/dL Glucose (74-99) mg/dL Calcium (8.4-10.2) mg/dL Iron 9 L (65-175) UG/DL % Saturation 2.70 L (15.00-50.00) Urine Protein 1+ H (Negative) Urine Blood Large H (Negative) Ur Leukocyte Esterase Large H (Negative) Urine RBC >182 H (0-5) /hpf Urine WBC >182 H (0-5) /hpf Urine WBC Clumps Occasional H (None) /hpf Urine Bacteria Occasional H (None) /hpf Urine Mucus Occasional H (None) /hpf 01/09/25 Range/Units 05:45 RBC (4.30-5.90) m/uL Hgb (13.0-17.5) gm/dL Hct (39.0-53.0) % MCH (25.0-35.0) pg MCHC (31.0-37.0) g/dL RDW (11.5-15.5) % Plt Count (150-450) k/uL Lymphocytes # (1.0-4.8) k/uL Potassium 3.4 L (3.5-5.1) mmol/L BUN 49 H (9-20) mg/dL Creatinine 2.08 H (0.66-1.25) mg/dL Glucose 100 H (74-99) mg/dL Calcium 7.6 L (8.4-10.2) mg/dL Iron (65-175) UG/DL % Saturation (15.00-50.00) Urine Protein (Negative) Urine Blood (Negative) Ur Leukocyte Esterase (Negative) Urine RBC (0-5) /hpf Urine WBC (0-5) /hpf Urine WBC Clumps (None) /hpf Urine Bacteria (None) /hpf Urine Mucus (None) /hpf Assessment and Plan Assessment: 1. Acute kidney injury, ATN, nonoliguric secondary to hypotension and anemia. Check UA. CT abdomen does not show any evidence of obstruction. 2. Chronic kidney disease stage IIIb with baseline creatinine 1.4 to 1.5 mg/dL. Previous UA showed trace protein on 09/29/2024. Etiology is likely nephrosclerosis 3. GI bleed status post packed RBCs transfusion x4 along with FFP and 1 unit of platelets 4. Anemia from acute blood loss from acute GI bleed 5. Acute hypoxic respiratory failure secondary to CHF exacerbation 6. Elevated troponins, cardiology on consult 7. UA + RBC/ WBC, he is on zosyn Plan: Maintain on scheduled dose of IV Lasix , currently on 40 mg BID Continue Aranesp low iron stores, start IV iron supplement check urine culture Repeat labs in a.m.
--- NOTE | 2025-01-09 12:55 | P.PN ---
Subjective Progress Note Date: 01/09/25 Principal diagnosis: Gastrointestinal bleed. Pulmonary consult dated January 06, 2025. 84-year-old male who presented to the emergency department, at 8:30 in the morning, on January 06, with a lower GI bleed. The patient was initially evaluated by Dr. Mason. He is 1 who called me. The patient came in via EMS, with a large bloody bowel movement, and, was evaluated in the ER, and was also complaining of nausea, and abdominal discomfort. The patient's initial hemoglobin was only 5.7. The patient received DDAVP, Protonix, saline resuscitation, 2 units of PRBCs, 2 units of fresh frozen plasma, and 1 unit of platelets. He is currently on 3 L. The GI doctor was called, and plans to do a scope on this patient. The patient is seen in room 1, in the emergency department. White count 12.5, hemoglobin 5.7, hematocrit 20.1, and platelet count 3-27,000. PT 14, INR 1.3, PTT 20.9. Sodium 139, potassium 5.4, chlorides 107, CO2 12, anion gap 20, BUN 51, creatinine 2.03. Glucose is 123. Calcium is 8.1. Chest x-ray shows a small left-sided pleural effusion. Dr. Zaldivar performed an EGD, which revealed retained food in the stomach, no evidence of active upper GI bleed, mild duodenitis, and small hiatal hernia. Progress note dated January 07, 2025. 84-year-old male seen yesterday in consultation in the emergency department. The patient was admitted with a diagnosis of lower GI bleed. He did have an EGD, which did not show any active bleeding. He is scheduled for colonoscopy today. Since coming here, he has received 4 units of packed red blood cells, 2 units of fresh frozen plasma, 1 unit of platelets, and DDAVP. He is currently getting norepinephrine at 5 mcg/min, saline at KVO, and nasal O2 at 4 L. He did go on BiPAP for period of time, from 10 PM to 4 AM, with settings of 12/5, and 30%. Today, we will check a BMP, add DuoNebs to his regimen, check a pro calcitonin level, and check troponins. I did talk to the patient about CODE STATUS. White count 12.1, hemoglobin 8.3, hematocrit 28.3, platelet count 158,000. Sodium 143, potassium 4.9, chlorides 111, CO2 22, BUN 59, creatinine 2.17. Leukosis 106. Calcium 8.1. Troponin was 16.5. N-terminal proBNP 11,600. Procalcitonin levels pending. Chest x-ray is consistent with CHF. Progress note dated January 08, 2025. 84-year-old male seen 2 days ago in consultation. He was seen initially in the emergency department, with a GI bleed. He had an EGD that was normal, and a colonoscopy which revealed diverticular disease, and hemorrhoids. He has had no further bleeding. He has received a total of 4 units of packed red blood cells, 2 units of fresh frozen plasma, 1 unit of platelets, DDAVP. Yesterday, he was on norepinephrine. Today, he was seen in room 256. He is on 4 L of oxygen. He is getting saline at KVO. His norepinephrine is running at 3.4 mcg/min. He has not used the BiPAP. His procalcitonin level was 0.47. Will go to discontinue the Zosyn. He likely had a non-ST segment elevation myocardial infarction. He was seen by cardiology. White count 8.5, hemoglobin 8.4, hematocrit 27.7, platelet count 120,000. Sodium 139, potassium 4.2, chlorides 108, CO2 24, BUN 60, creatinine 2.15. Calcium is 8. Urine suggest the possibility of a urinary tract infection. The patient's chest x-ray shows cardiomegaly, and changes of CHF. Progress note dated January 09, 2025. 84-year-old male seen today in room 256. He continues on nasal O2 at 4 L. In addition, cardiology started him on dobutamine at 2.5 mcg/kg/min. Echocardiogram showed an ejection fraction of 15 to 20%. He does use BiPAP intermittently at 12/5 and 40%. His respiratory status was a bit compromised last night, and I was called by the charge nurse, we placed him on the BiPAP. White count 4.4, hemoglobin 7.3, hematocrit 23.9, platelet count 86,000. Sodium 138, potassium 3.4, chlorides 105, CO2 26, BUN 49, creatinine 2.08. Glucose is at 100. Calcium is 7.6. Chest x-ray shows bilateral pleural effusions, and interstitial changes consistent with pulmonary edema. Objective - Vital Signs Vital signs: Vital Signs Temp 97.9 F 01/09/25 12:00 Pulse 116 H 01/09/25 12:26 Resp 32 H 01/09/25 12:00 BP 93/63 01/09/25 12:00 Pulse Ox 99 01/09/25 12:00 FiO2 50 01/09/25 04:00 Intake & Output 01/08/25 01/09/25 01/09/25 18:59 06:59 18:59 Intake Total 1445.327 351.413 800.991 Output Total 1020 1685 1450 Balance 425.327 -1333.587 -649.009 Weight 114.9 kg Intake: IV 700 200 600 Piperacillin-Tazobactam 3 700 200 .375 gm In Sodium Chloride 0.9% 100 ml @ 25 mls/hr IVPB Q12HR TEO Rx #:[id number] Piperacillin-Tazobactam 3 500 .375 gm In Sodium Chloride 0.9% 100 ml @ 25 mls/hr IVPB Q8H TEO Rx#: [id number] Sodium Ferric Gluconat- 100 Sucrose 125 mg In Sodium Chloride 0.9% 100 ml @ 100 mls/hr IVPB DAILY TEO Rx#:[id number] Intake, IV Titration 25.327 151.413 0.991 Amount Norepinephrine 4 mg In 25.327 151.413 0.991 Sodium Chloride 0.9% 250 ml @ 0.03 MCG/KG/MIN 11. 147 mls/hr IV .[id number] TEO Rx#:[id number] Oral 720 200 Output: Urine 1020 1685 1450 Other: Voiding Method Indwelling Catheter Indwelling Catheter Indwelling Catheter - Exam Mild respiratory distress, oriented 3. The patient is currently 4 liters of oxygen. He is very pale. HEENT examination is grossly unremarkable. Mucous membranes are moist. No oral lesions. Neck supple. Full range of motion. No adenopathy thyromegaly or neck vein distention. Cardiovascular examination reveals regular rhythm rate. S1-S2 normal. No S3 or S4. No discernible murmur noted. Lungs reveal scattered rhonchi and crackles. Breath sounds equal. No wheezes. Abdomen soft bowel sounds are heard. No masses or tenderness. Dried blood is noted in the area of the groin, over his lower abdomen, scrotum, and penis. Extremities are intact. No cyanosis clubbing or edema. Skin is without rash or lesion. Neurologic examination is brief but nonfocal. - Labs CBC & Chem 7: 01/09/25 05:45 01/09/25 05:45 Labs: Abnormal Lab Results - Last 24 Hours (Table) 01/08/25 01/09/25 01/09/25 Range/Units 04:14 05:45 05:45 RBC 2.91 L (4.30-5.90) m/uL Hgb 7.3 L (13.0-17.5) gm/dL Hct 23.9 L (39.0-53.0) % MCH 24.9 L (25.0-35.0) pg MCHC 30.4 L (31.0-37.0) g/dL RDW 18.6 H (11.5-15.5) % Plt Count 86 L (150-450) k/uL Lymphocytes # 0.8 L (1.0-4.8) k/uL Potassium 3.4 L (3.5-5.1) mmol/L BUN 49 H (9-20) mg/dL Creatinine 2.08 H (0.66-1.25) mg/dL Glucose 100 H (74-99) mg/dL Calcium 7.6 L (8.4-10.2) mg/dL Iron 9 L (65-175) UG/DL % Saturation 2.70 L (15.00-50.00) Assessment and Plan Assessment: Acute lower GI bleed, with severe anemia. Rule out non-ST segment elevation myocardial infarction. Probable congestive heart failure, secondary to non-ST segment elevation myocardial infarction. Ejection fraction by echocardiogram 15 to 20%. History of previous myocardial infarction. History of asthma. History of CVA. History of hyperlipidemia. History of hypertension. History of melanoma, with possible metastatic melanoma. History of osteoarthritis. Plan: Plan dated January 06, 2025. The patient was seen in the emergency department, room #1. The patient presented via the EMS, with lower GI bleed. He was having bright red bleeding per rectum. The patient's initial hemoglobin was 5.7. He was seen by Dr. Mason in the emergency department, and received 2 units of PRBCs, 2 units of fresh frozen plasma, and 1 unit of platelets. In addition, the patient received DDAVP, Protonix, saline at 130 cc an hour, and nasal O2 at 3 L. The patient will be admitted to the intensive care unit, for further monitoring and management. The patient had an EGD by Dr. Zaldivar which did not show any active GI bleeding. We will continue to follow make recommendations along the way. Prognosis is guarded. Frequent hemoglobin checks. Hemodynamic status is stable. Plan dated January 07, 2025. The patient's chest x-ray is consistent with CHF/fluid overload. The patient's BNP was quite high. In addition, the troponin level was very high. We will going to have cardiology see this patient. The patient is apparently scheduled for a colonoscopy today. He has received a total of 4 units of PRBCs, 2 units of fresh frozen plasma, 1 unit of platelets, and DDAVP since he has been here. His EGD done yesterday did not reveal any active bleeding. Currently, he is hypotensive, and requires norepinephrine at 5 mcg/min. He also is using BiPAP intermittently, with settings of 12/5, and 30%. Labs, x-rays, and all medications are reviewed. Prognosis is guarded. We will continue to follow make recommendations. Dictation was produced using [employer] software. Please excuse any grammatical, word or spelling errors. Plan dated January 08, 2025. The patient is seen today in room 256. He is currently on 4 L of oxygen by nasal cannula. He is getting saline at KVO, and norepinephrine for blood pressure support of 3.4 mcg/min. Chest x-ray shows cardiomegaly, changes of pulmonary vascular congestion, and CHF. He has not used the BiPAP. His colonoscopy revealed evidence of diverticular disease, and hemorrhoids. There is been no further bleeding. Procalcitonin level is 0.47. Zosyn is discontinue d. The patient has received a total of 4 units of PRBCs, 2 units of fresh frozen plasma, and 1 unit of platelets. He also received DDAVP. All labs, x- rays, and medications are reviewed. He remains critically ill. Prognosis is guarded. We will continue to follow the patient, make recommendations. Dictation was produced using Dragon dictation software. Please excuse any grammatical, word or spelling errors. Plan dated January 09, 2025. The patient is seen today in room 256. He continues on O2 at 4 L. He is on dobutamine per cardiology 2.5 mcg/kg/min. By echocardiogram, his ejection fra ction is estimated to be 15 to 20%. He did require BiPAP last night, with settings of 12/5, and 40%. I did have a conversation with the patient about CODE STATUS. At this point he is a full code. He apparently has a daughter that he does not have much of relationship with, but would like to discuss CODE STATUS with her. Will see if we can get those 2 together. Additional recommendations and suggestions are forthcoming. All labs, x-rays, medications are reviewed. The patient's overall prognosis remains very poor. No additional recommendations at this time. Dictation was produced using [employer] dictation software. Please excuse any grammatical, word or spelling errors. Time with Patient: Greater than 30
[2025-01-09] MEDS: MIDAZOLAM 1 MG/ML 5 ML VIAL IV STA (14:18)
[2025-01-09] MEDS: fentaNYL (PF) 50 MCG/ML 2 ML AMP IVP ONE (14:19)
--- NOTE | 2025-01-09 14:54 | P.PN ---
Subjective Progress Note Date: 01/09/25 CHIEF COMPLAINT: GI bleed HISTORY OF PRESENT ILLNESS: The patient is a 84-year-old male brought in acutely with acute GI bleed, hypotension, pulmonary edema after massive resuscitation. He is still in the ICU. Patient has miraculously improved where he has no further bleeding. He denies abdominal pain. In fact, he feels pretty good. No longer on continuous BiPAP. Patient reports he was visited by family friend who will arrange to connect with his daughter of whom he is estranged. No further blood transfusions since admission. ROS: No reports of nausea and vomiting. No fevers or chills. No new chest pain. No productive sputum PHYSICAL EXAM: VITAL SIGNS: Reviewed CONSTITUTIONAL: Well developed and in no acute distress. EYES: Conjuctivae without sclera icterus. Extraocular movements grossly intact. HEAD, EARS, NOSE, THROAT: Moist buccal mucosa. Head is atraumatic, normocephal ic. Hard of hearing. RESPIRATORY: Non-labored respirations and equal bilateral excursions. CARDIOVASCULAR: Palpable 2+ radial pulses. ABDOMEN: Nondistended. Nontender. MUSCULOSKELETAL: No gross deformity of the lower extremities noted. No clubbing. No cyanosis. SKIN: Good skin turgor. Well perfused. NEUROLOGIC: Cranial nerves II through XII grossly intact. No focal or lateralizing signs. PSYCH: Appropriate affect. Alert and oriented to person, place and time. CLINICAL LABS: Reviewed. Hemoglobin down 8.5-7.4. WBC normal. Creatinine elevated 2.08. ECHO: Obtained during this admission demonstrates ejection fraction of 15 to 20%. Severely reduced global left ventricular systolic function. Moderate to severe pulmonary hypertension ASSESSMENT: 1. Acute bolus anemia due to GI bleed 2. Severe pulmonary hypertension 3. Severe left ventricular hypokinesis 4. Hypertensive kidney disease stage III PLAN: 1. Overall, patient has global pulmonary hypertension with poor systolic ejection fraction and is not a surgical candidate with his global multiple comorbidities 2. Patient has moderately improved since admission after multiple interventions 3. At bedside, conversations including reestablishing relationship with family described 4. Diet as tolerated Objective - Vital Signs Vital signs: Vital Signs Temp 97.9 F 01/09/25 12:00 Pulse 110 H 01/09/25 14:00 Resp 26 H 01/09/25 14:00 BP 98/48 01/09/25 14:00 Pulse Ox 98 01/09/25 14:00 FiO2 50 01/09/25 04:00 Intake & Output 01/08/25 01/09/25 01/09/25 18:59 06:59 18:59 Intake Total 1445.327 351.413 500.991 Output Total 1020 1685 1750 Balance 425.327 -1333.587 -1249.009 Weight 114.9 kg Intake: IV 700 200 300 Piperacillin-Tazobactam 3 700 200 .375 gm In Sodium Chloride 0.9% 100 ml @ 25 mls/hr IVPB Q12HR TEO Rx #:[id number] Piperacillin-Tazobactam 3 200 .375 gm In Sodium Chloride 0.9% 100 ml @ 25 mls/hr IVPB Q8H TEO Rx#: [id number] Sodium Ferric Gluconat- 100 Sucrose 125 mg In Sodium Chloride 0.9% 100 ml @ 100 mls/hr IVPB DAILY TEO Rx#:[id number] Intake, IV Titration 25.327 151.413 0.991 Amount Norepinephrine 4 mg In 25.327 151.413 0.991 Sodium Chloride 0.9% 250 ml @ 0.03 MCG/KG/MIN 11. 147 mls/hr IV .[id number] TEO Rx#:[id number] Oral 720 200 Output: Urine 1020 1685 1750 Other: Voiding Method Indwelling Catheter Indwelling Catheter Indwelling Catheter - Labs CBC & Chem 7: 01/09/25 05:45 01/09/25 12:20 Labs: Abnormal Lab Results - Last 24 Hours (Table) 01/08/25 01/09/25 01/09/25 Range/Units 04:14 05:45 05:45 RBC 2.91 L (4.30-5.90) m/uL Hgb 7.3 L (13.0-17.5) gm/dL Hct 23.9 L (39.0-53.0) % MCH 24.9 L (25.0-35.0) pg MCHC 30.4 L (31.0-37.0) g/dL RDW 18.6 H (11.5-15.5) % Plt Count 86 L (150-450) k/uL Lymphocytes # 0.8 L (1.0-4.8) k/uL Potassium 3.4 L (3.5-5.1) mmol/L BUN 49 H (9-20) mg/dL Creatinine 2.08 H (0.66-1.25) mg/dL Glucose 100 H (74-99) mg/dL Calcium 7.6 L (8.4-10.2) mg/dL Iron 9 L (65-175) UG/DL % Saturation 2.70 L (15.00-50.00)
--- NOTE | 2025-01-09 15:20 | P.PN ---
Subjective Progress Note Date: 01/09/25 89-year-old male patient with past medical history significant for coronary artery disease status post stenting 2021, ischemic cardiomyopathy with a EF 40 to 45%, history of CVA with left-sided residual deficits, hypertension, hyperlipidemia, hard of hearing, history of skin cancer who presented to ER with a complaint of blood in the stools. Patient was brought to the ER by EMS, was noted to have large bloody bowel movement, was complaining of dizziness, also complained of nausea and abdominal discomfort. Patient was afebrile on presentation, was tachycardic and hypotensive, initially was on on room air, later on required supplemental oxygen 2 L after IV fluids. WBCs 12.5, hemoglobin 5.7, came up to 7.4 after 3 units. Platelet 227. INR 1.3. Sodium 139, potassium 5.4, chloride 107, CO2 12, BUN 51, creatinine 2.03, GFR 30. Liver profile unremarkable. Chest x-ray showed small left pleural effusion with left basilar opacities, diffuse interstitial prominence. 01/07--patient was seen and examined today. Patient is afebrile, heart rate 91, respiratory rate 27, blood pressure 99/56, saturating 99%, currently on BiPAP with 30% FiO2. WBCs 12.1, hemoglobin 8.3, platelet 158. Sodium 143, potassium 4.9, BUN 59, creatinine 2.17. Troponin was 16.5, went up to 12.2. proBNP 11,600. Patient underwent colonoscopy today which showed normal-appearing colon from rectum to cecum with no evidence of colitis or colorectal neoplasia, no active GI bleed, scattered sigmoid diverticulosis. Grade 2 hemorrhoids. 01/08--patient initially presented to ED with GI bleed, transferred to ICU for GI bleed, hemorrhagic shock, requiring Levophed, underwent EGD and colonoscopy, showed diverticular disease and hemorrhoids, required 4 unit of packed RBCs, 2 units of fresh frozen plasma, 1 unit of platelets, DDAVP, no further bleeding at this point, hemoglobin is now stable. Remains on norepinephrine. On 4 L oxygen. Cardiology following for NSTEMI. Patient is afebrile, heart rate 92, respiratory rate 27, saturating 100% on 3 L. Blood pressure is soft 93/56. Patient currently on Levophed. Chest x-ray showed pleural effusion, CHF. Echocardiogram showed severe LV dysfunction with EF less than 20%, RV enlargement, moderate to severe pulmonary hypertension, reduced aortic valve excursion/opening. WBCs 8.5, hemoglobin 8.4, platelet 120. Sodium 139, potassium 4.2, chloride 102, CO2 24, BUN 60, creatinine 2.15. UA showed large leukocyte Estrace, RBCs WBCs. Patient is currently on Zosyn. ICU, nephrology, cardiology GI has been consulted. 01/09. Patient seen and examined. Currently states he is doing okay. Patient currently on dobutamine drip. Hemoglobin this morning is 7.3. REVIEW OF SYSTEMS: CONSTITUTIONAL: No fever, no malaise,. CARDIOVASCULAR: No chest pain, no palpitations, no syncope. PULMONARY: No shortness of breath, no cough, GASTROINTESTINAL: No diarrhea, no nausea, no vomiting, no abdominal pain. NEUROLOGICAL: No headaches, no weakness, PHYSICAL EXAMINATION: GENERAL: The patient is alert and oriented x3, ill looking HEENT: Pupils are round and equally reacting to light. EOMI. No scleral icterus. No conjunctival pallor. Normocephalic, atraumatic. No pharyngeal erythema. No thyromegaly. CARDIOVASCULAR: S1 and S2 present. No murmurs, rubs, or gallops. PULMONARY: Diminished breath sounds at the bases bilaterally no wheezing or crackles. ABDOMEN: Soft, nontender, nondistended, normoactive bowel sounds. No palpable organomegaly. MUSCULOSKELETAL: No joint swelling or deformity. EXTREMITIES: No cyanosis, clubbing, or pedal edema. NEUROLOGICAL: Gross neurological examination did not reveal any focal deficits. SKIN: No rashes. Assessment and plan Severe anemia: Acute blood loss anemia Hemorrhagic shock: BO on CKD: Suspect prerenal secondary to hypovolemia, hypotension Acute on chronic diastolic and systolic CHF: Hyperkalemia: History of CAD/PCI in 2021: Severe cardiomyopathy with EF less than 20% Moderate to severe pulmonary hypertension Aortic valve stenosis: Elevated troponin: Likely demand ischemia. Hypertension Hyperlipidemia Hard of hearing History of CVA with left-sided weakness Acute hypoxic respiratory failure Fluid overload: Skin cancer: History of melanoma Osteoarthritis History of asthma Monitor vital signs Monitor CBC Monitor CMP Continue telemetry monitoring Encourage use of incentive spirometer status post EGD showed no active GI bleed. Colonoscopy 01/07 negative for any active bleed, per GI likely to diverticular bleed which is stopped now. CT abdomen pelvismoderate bilateral pleural effusion, dependent airspace consolidation, abdominal ascites, dilated small bowel measuring up to 2.7 cm, atrophic kidneys, diverticulosis. echo showed EF less than 20%, decreased opening/excursion of aortic valve, moderate to severe pulmonary hypertension. Continue IV Protonix Continue IV Zosyn Hold aspirin and Plavix Hold antihypertensives Strict I's and O's, daily weights, continue IV Lasix Nephrology following Cardiology following ICU following Labs and medication were reviewed.. Continue same treatment. Continue with symptomatic treatment. Resume home medication. Monitor labs and vitals. DVT and GI prophylaxis. Further recommendations as per clinical course of the patient Dictation was produced using [employer] dictation software. please excuse any grammatical, word or spelling errors. Objective - Vital Signs Vital signs: Vital Signs Temp 97.7 F 01/09/25 08:00 Pulse 126 H 01/09/25 09:00 Resp 22 01/09/25 09:00 BP 100/69 01/09/25 09:00 Pulse Ox 98 01/09/25 09:00 FiO2 50 01/09/25 04:00 Intake & Output 01/08/25 01/09/25 01/09/25 18:59 06:59 18:59 Intake Total 1445.327 351.413 300.991 Output Total 1020 1685 200 Balance 425.327 -1333.587 100.991 Weight 114.9 kg Intake: IV 700 200 100 Piperacillin-Tazobactam 3 700 200 .375 gm In Sodium Chloride 0.9% 100 ml @ 25 mls/hr IVPB Q12HR TEO Rx #:[id number] Piperacillin-Tazobactam 3 100 .375 gm In Sodium Chloride 0.9% 100 ml @ 25 mls/hr IVPB Q8H TEO Rx#: [id number] Intake, IV Titration 25.327 151.413 0.991 Amount Norepinephrine 4 mg In 25.327 151.413 0.991 Sodium Chloride 0.9% 250 ml @ 0.03 MCG/KG/MIN 11. 147 mls/hr IV .[id number] TEO Rx#:[id number] Oral 720 200 Output: Urine 1020 1685 200 Other: Voiding Method Indwelling Catheter Indwelling Catheter Indwelling Catheter - Labs CBC & Chem 7: 01/09/25 05:45 01/09/25 12:20 Labs: Abnormal Lab Results - Last 24 Hours (Table) 01/08/25 01/08/25 01/09/25 Range/Units 04:14 11:11 05:45 RBC 2.91 L (4.30-5.90) m/uL Hgb 7.3 L (13.0-17.5) gm/dL Hct 23.9 L (39.0-53.0) % MCH 24.9 L (25.0-35.0) pg MCHC 30.4 L (31.0-37.0) g/dL RDW 18.6 H (11.5-15.5) % Plt Count 86 L (150-450) k/uL Lymphocytes # 0.8 L (1.0-4.8) k/uL Potassium (3.5-5.1) mmol/L BUN (9-20) mg/dL Creatinine (0.66-1.25) mg/dL Glucose (74-99) mg/dL Calcium (8.4-10.2) mg/dL Iron 9 L (65-175) UG/DL % Saturation 2.70 L (15.00-50.00) Urine Protein 1+ H (Negative) Urine Blood Large H (Negative) Ur Leukocyte Esterase Large H (Negative) Urine RBC >182 H (0-5) /hpf Urine WBC >182 H (0-5) /hpf Urine WBC Clumps Occasional H (None) /hpf Urine Bacteria Occasional H (None) /hpf Urine Mucus Occasional H (None) /hpf 01/09/25 Range/Units 05:45 RBC (4.30-5.90) m/uL Hgb (13.0-17.5) gm/dL Hct (39.0-53.0) % MCH (25.0-35.0) pg MCHC (31.0-37.0) g/dL RDW (11.5-15.5) % Plt Count (150-450) k/uL Lymphocytes # (1.0-4.8) k/uL Potassium 3.4 L (3.5-5.1) mmol/L BUN 49 H (9-20) mg/dL Creatinine 2.08 H (0.66-1.25) mg/dL Glucose 100 H (74-99) mg/dL Calcium 7.6 L (8.4-10.2) mg/dL Iron (65-175) UG/DL % Saturation (15.00-50.00) Urine Protein (Negative) Urine Blood (Negative) Ur Leukocyte Esterase (Negative) Urine RBC (0-5) /hpf Urine WBC (0-5) /hpf Urine WBC Clumps (None) /hpf Urine Bacteria (None) /hpf Urine Mucus (None) /hpf
--- NOTE | 2025-01-09 18:36 | P.PN ---
Subjective Progress Note Date: 01/09/25 HISTORY OF PRESENTING ILLNESS: Patient is a 89-year-old male with past medical history of CAD status post PCI in 2021, ischemic cardiomyopathy with a EF of 40 to 45%, history of CVA, left- sided residual deficit, hypertension, dyslipidemia, skin cancer, difficulty in hearing. He presented to the ER because of blood in stools. Patient was brought to the ER by EMS and was noted to have a large bloody bowel movement and patient was complaining of dizziness nausea and abdominal discomfort. On admission he was tachycardic with hypotension. Admission labs shows hemoglobin of 5.7, received 3 units of blood transfusion. Platelets were 227. INR was 1.3. Creatinine was 2.03, GFR 30. On admission he had an urgent upper GI endoscopy which did not show any active upper GI bleeding. Mild hiatal hernia, mild duodenitis. Following this on 01/07/2027 patient underwent colonoscopy which showed grade 2 hemorrhoids, normal- appearing rectum and colon, no active GI bleeding, scattered sigmoid diverticulo sis. On admission his EKG and telemetry showed significant atrial and ventricular ectopy for which cardiology was consulted. For this we gave patient 1 amp of bicarb, calcium gluconate and 2 g of magnesium sulfate. On admission he also had significant elevation of troponin at 16, repeat at 12. On admission he had significant lactic acidosis with lactate of 6.04 Patient was last admitted in September 2021 where he was seen by cardiology. At that time he had evidence of mechanical fall rhabdomyolysis and NSTEMI with a troponin level of 24. Prior cardiac workup His echo from June 2024 shows an EF of 55%, mild LVH, trace aortic regurgitation, mild aortic stenosis. Cardiac cath from August 2022 shows 80% proximal RCA, 50% mid to distal RCA, 80% proximal PDA, PCI of mid RCA with 2 overlapping RICHARDSON. PCI of PDA. Last echo from September 2024 shows an EF of 40%, anteroapical and septal hypokinesia, moderately impaired LV systolic function. Moderate pulmonary hypertension, mild aortic stenosis mean gradient 11 mmHg, Progress note 01/08/2025 Patient is seen and examined at bedside this a.m. Hemoglobin has somewhat stabilized around 8. Kidney function is somewhat stable. She appears volume overloaded with 1-2+ pitting edema in bilateral thigh. He also has elevated JVP. He appears sick. Echo shows an EF of 20% globally reduced LVEF. Mildly dilated LV cavity. He does appear volume overloaded on physical examination. 01/09/2025 Patient was started on dobutamine drip at 2.5 mcg yesterday along with IV diuretics. Patient responded well with good urine output with marginally improved kidney function. However this morning he is noticed to be tachycardic with heart rate in the 130s. I will discontinue his dobutamine drip continue IV diuretics. Blood pressure is holding without dobutamine or pressors. Hemoglobin 7.3 today. It appears that patient has gone into atrial fibrillation after starting dobutamine drip. I will start amiodarone without bolus. Without bolus to avoid hypotension. Negative fluid balance of 900 cc since yesterday while on dobutamine drip and IV Lasix. PHYSICAL EXAMINATION: Neck: Brisk carotid upstroke, elevated jugular venous distention. Lungs: Poor respiratory effort with mild crackles and rhonchi Heart: Irregularly irregular, mild systolic murmur audible Abdomen: Soft nontender, mild tenderness, positive bowel sounds Extremities: 1-2+ pitting edema in thighs bilaterally Neuro: Alert, oritented, generalized weak, detailed neuro exam was not performed. ASSESSMENT: # Atrial fibrillation with RVR # Acute lower GI bleeding with severe anemia # Mixed shock state, with component of hemorrhagic, distributive shock and cardiogenic shock # Acute HFrEF exacerbation. LVEF 20%. Likely competent of stress-induced cardiomyopathy on top of previously existing ischemic cardiomyopathy. # Elevated troponin, likely type II NSTEMI from demand supply mismatch # History of ischemic cardiomyopathy. # CAD status post PCI to RCA and PDA in 2021 # History of skin cancer, possible metastatic melanoma # History of CVA Cardiac testing Echo from this admission shows an EF of 20%, aortic stenosis with low-flow low gradient state. When compared to prior echo from September 2024, LVEF has dropped. Previous LVEF documented at 40%. PLAN: Start amiodarone drip Monitor hemoglobin, if hemoglobin stable, start aspirin 81 mg Continue Lipitor 40 mg daily Hold dobutamine. Continue Lasix 40 mg twice daily. Avoid using beta-blockers. Goal MAP 65 mmHg. Monitor urine output, monitor electrolytes and kidney function. Monitor telemetry Continue pressor support, monitor hemoglobin level and watch for any signs of bleeding. Overall patient's prognosis very poor. Patient is not a candidate for heart catheterization or PCI because of low hemoglobin and poor kidney function at this time. On last admission September patient had a peak troponin of 32. It appears that patient has chronically elevated troponin enzyme. Objective - Vital Signs Vital signs: Vital Signs Temp 97.9 F 01/09/25 16:00 Pulse 106 H 01/09/25 18:00 Resp 26 H 01/09/25 18:00 BP 87/67 01/09/25 18:00 Pulse Ox 98 01/09/25 18:00 FiO2 50 01/09/25 04:00 Intake & Output 01/08/25 01/09/25 01/09/25 18:59 06:59 18:59 Intake Total 1445.327 574.526 6191.991 Output Total 1020 1685 2260 Balance 425.327 -1333.587 -1259.009 Weight 114.9 kg Intake: IV 700 200 300 Piperacillin-Tazobactam 3 700 200 .375 gm In Sodium Chloride 0.9% 100 ml @ 25 mls/hr IVPB Q12HR [facility] Rx #:[id number] Piperacillin-Tazobactam 3 200 .375 gm In Sodium Chloride 0.9% 100 ml @ 25 mls/hr IVPB Q8H [facility] Rx#: [id number] Sodium Ferric Gluconat- 100 Sucrose 125 mg In Sodium Chloride 0.9% 100 ml @ 100 mls/hr IVPB DAILY [facility] Rx#:[id number] Intake, IV Titration 25.327 151.413 0.991 Amount Norepinephrine 4 mg In 25.327 151.413 0.991 Sodium Chloride 0.9% 250 ml @ 0.03 MCG/KG/MIN 11. 147 mls/hr IV .[id number] [facility] Rx#:[id number] Oral 720 700 Output: Urine 1020 1685 2260 Other: Voiding Method Indwelling Catheter Indwelling Catheter Indwelling Catheter - Labs CBC & Chem 7: 01/09/25 05:45 01/09/25 12:20 Labs: Abnormal Lab Results - Last 24 Hours (Table) 01/09/25 01/09/25 Range/Units 05:45 05:45 RBC 2.91 L (4.30-5.90) m/uL Hgb 7.3 L (13.0-17.5) gm/dL Hct 23.9 L (39.0-53.0) % MCH 24.9 L (25.0-35.0) pg MCHC 30.4 L (31.0-37.0) g/dL RDW 18.6 H (11.5-15.5) % Plt Count 86 L (150-450) k/uL Lymphocytes # 0.8 L (1.0-4.8) k/uL Potassium 3.4 L (3.5-5.1) mmol/L BUN 49 H (9-20) mg/dL Creatinine 2.08 H (0.66-1.25) mg/dL Glucose 100 H (74-99) mg/dL Calcium 7.6 L (8.4-10.2) mg/dL
[2025-01-09] MEDS: AMIODARONE 360 MG in DEXTROSE 5% IN WATER 200 ML IV ONE (19:54)
[2025-01-10] MEDS: AMIODARONE 450 MG in DEXTROSE 5% IN WATER 250 ML IV SCH (01:09)
--- NOTE | 2025-01-10 06:46 | XR ---
EXAMINATION TYPE: XR chest 1V portable DATE OF EXAM: 01/10/2025 COMPARISON: 01/09/2025 CLINICAL INDICATION: Male, 84 years old with history of pulmonary edema; TECHNIQUE: Single frontal view of the chest is obtained. FINDINGS: The diffuse interstitial opacity has decreased in the interval defined decreased pulmonary vascular c ongestion and interstitial edema. There is no change in the moderate left pleural effusion and small right effusion. There is no pneumothorax. The osseous structures are intact. IMPRESSION: Mild improvement in the acute cardiopulmonary process is described above. Findings most likely indica te mild improvement in CHF. [facility], , 01/10/2025 6:44 AM
[2025-01-10 07:27] LABS: Anisocytosis Slight; Basophils % (A) 0 %; Eosinophils # (A) 0.1 k/uL (0-0.7); Eosinophils % (A) 1 %; HCT 26.6 % (39.0-53.0); HGB 7.9 gm/dL (13.0-17.5); Hypochromasia Marked; Lymphocytes # (A) 0.8 k/uL (1.0-4.8); Lymphocytes % (A) 13 %; MCH 24.8 pg (25.0-35.0); MCHC 29.9 g/dL (31.0-37.0); Mean Platelet Volume 9.2; Monocytes # (A) 0.4 k/uL (0-1.0); Monocytes % (A) 7 %; Neutrophils # (A) 4.4 k/uL (1.3-7.7); Neutrophils % (A) 77 %; Poikilocytosis Slight; RDW 19.4 % (11.5-15.5); WBC 5.8 k/uL (3.8-10.6)
[2025-01-10 07:48] LABS: Platelet Count 95 k/uL (150-450)
[2025-01-10 08:08] LABS: African American GFR (CKD) 44 (>60 ml/min/1.73 sqM); Anion Gap 7 mmol/L; Blood Urea Nitrogen 42 mg/dL (9-20); Calcium 7.7 mg/dL (8.4-10.2); Carbon Dioxide 27 mmol/L (22-30); Chloride 102 mmol/L (98-107); Glucose 115 mg/dL (74-99); Non-African American GFR(CKD) 38 (>60 ml/min/1.73 sqM); Potassium 3.7 mmol/L (3.5-5.1); Sodium 136 mmol/L (137-145)
[2025-01-10] MEDS: DIGOXIN 250 MCG/ML 2 ML AMP IVP ONE ×2 (08:19→14:32)
[2025-01-10] MEDS: MAGNESIUM SULFATE-D5W PMX 1 GM in DEXTROSE/WATER 1 100ML.BAG IVPB ONE (09:38)
[2025-01-10] MEDS: POTASSIUM BICARBONATE/CIT AC 20 MEQ TABLET.EFF NG-TUBE SCH (09:50)
--- NOTE | 2025-01-10 12:03 | P.PN ---
Subjective Progress Note Date: 01/10/25 Principal diagnosis: Gastrointestinal bleed. Pulmonary consult dated January 06, 2025. 84-year-old male who presented to the emergency department, at 8:30 in the morning, on January 06, with a lower GI bleed. The patient was initially evaluated by Dr. Mason. He is 1 who called me. The patient came in via EMS, with a large bloody bowel movement, and, was evaluated in the ER, and was also complaining of nausea, and abdominal discomfort. The patient's initial hemoglobin was only 5.7. The patient received DDAVP, Protonix, saline resuscitation, 2 units of PRBCs, 2 units of fresh frozen plasma, and 1 unit of platelets. He is currently on 3 L. The GI doctor was called, and plans to do a scope on this patient. The patient is seen in room 1, in the emergency department. White count 12.5, hemoglobin 5.7, hematocrit 20.1, and platelet count 3-27,000. PT 14, INR 1.3, PTT 20.9. Sodium 139, potassium 5.4, chlorides 107, CO2 12, anion gap 20, BUN 51, creatinine 2.03. Glucose is 123. Calcium is 8.1. Chest x-ray shows a small left-sided pleural effusion. Dr. Zaldivar performed an EGD, which revealed retained food in the stomach, no evidence of active upper GI bleed, mild duodenitis, and small hiatal hernia. Progress note dated January 07, 2025. 84-year-old male seen yesterday in consultation in the emergency department. The patient was admitted with a diagnosis of lower GI bleed. He did have an EGD, which did not show any active bleeding. He is scheduled for colonoscopy today. Since coming here, he has received 4 units of packed red blood cells, 2 units of fresh frozen plasma, 1 unit of platelets, and DDAVP. He is currently getting norepinephrine at 5 mcg/min, saline at KVO, and nasal O2 at 4 L. He did go on BiPAP for period of time, from 10 PM to 4 AM, with settings of 12/5, and 30%. Today, we will check a BMP, add DuoNebs to his regimen, check a pro calcitonin level, and check troponins. I did talk to the patient about CODE STATUS. White count 12.1, hemoglobin 8.3, hematocrit 28.3, platelet count 158,000. Sodium 143, potassium 4.9, chlorides 111, CO2 22, BUN 59, creatinine 2.17. Leukosis 106. Calcium 8.1. Troponin was 16.5. N-terminal proBNP 11,600. Procalcitonin levels pending. Chest x-ray is consistent with CHF. Progress note dated January 08, 2025. 84-year-old male seen 2 days ago in consultation. He was seen initially in the emergency department, with a GI bleed. He had an EGD that was normal, and a colonoscopy which revealed diverticular disease, and hemorrhoids. He has had no further bleeding. He has received a total of 4 units of packed red blood cells, 2 units of fresh frozen plasma, 1 unit of platelets, DDAVP. Yesterday, he was on norepinephrine. Today, he was seen in room 256. He is on 4 L of oxygen. He is getting saline at KVO. His norepinephrine is running at 3.4 mcg/min. He has not used the BiPAP. His procalcitonin level was 0.47. Will go to discontinue the Zosyn. He likely had a non-ST segment elevation myocardial infarction. He was seen by cardiology. White count 8.5, hemoglobin 8.4, hematocrit 27.7, platelet count 120,000. Sodium 139, potassium 4.2, chlorides 108, CO2 24, BUN 60, creatinine 2.15. Calcium is 8. Urine suggest the possibility of a urinary tract infection. The patient's chest x-ray shows cardiomegaly, and changes of CHF. Progress note dated January 09, 2025. 84-year-old male seen today in room 256. He continues on nasal O2 at 4 L. In addition, cardiology started him on dobutamine at 2.5 mcg/kg/min. Echocardiogram showed an ejection fraction of 15 to 20%. He does use BiPAP intermittently at 12/5 and 40%. His respiratory status was a bit compromised last night, and I was called by the charge nurse, we placed him on the BiPAP. White count 4.4, hemoglobin 7.3, hematocrit 23.9, platelet count 86,000. Sodium 138, potassium 3.4, chlorides 105, CO2 26, BUN 49, creatinine 2.08. Glucose is at 100. Calcium is 7.6. Chest x-ray shows bilateral pleural effusions, and interstitial changes consistent with pulmonary edema. Progress note dated January 10, 2025. 84-year-old male seen again in room 256. The patient continues on nasal O2 3 L. He does use BiPAP at nighttime, with settings of 12/5, and 40%. He used it for about 6 to 8 hours last night. The patient continues on amiodarone 0.5 mg/min, norepinephrine has been weaned off. He is not receiving any additional IV fluids. His procalcitonin level was 0.47. His Zosyn will be discontinued. He initially was admitted with a gastrointestinal bleed. Currently, he is resting comfortably in bed. He is in no distress. He does look a bit tachypneic. White count 5.8, hemoglobin 7.9, hematocrit 26.6, platelet count 95,000. Sodium 136, potassium 3.7, chloride 72, CO2 27, BUN 42, and creatinine 1.65. Magnesium is 1.8. Glucose Is 115. The patient's chest x-ray it still does show a pattern of CHF, although it is minimally improved. Objective - Vital Signs Vital signs: Vital Signs Temp 97.8 F 01/10/25 08:00 Pulse 100 01/10/25 11:45 Resp 18 01/10/25 11:45 BP 91/53 01/10/25 11:45 Pulse Ox 95 01/10/25 11:45 FiO2 50 01/09/25 04:00 Intake & Output 01/09/25 01/10/25 01/10/25 17:59 06:59 18:59 Intake Total 318.082 Output Total 1260 Balance -941.918 Weight Intake: IV 200 Magnesium Sulfate-D5w Pmx 100 1 gm In Dextrose/Water 1 100ml.bag @ 100 mls/hr IVPB ONCE ONE Rx#: [id number] Piperacillin-Tazobactam 3 .375 gm In Sodium Chloride 0.9% 100 ml @ 25 mls/hr IVPB Q8H [facility] Rx#: [id number] Sodium Ferric Gluconat- 100 Sucrose 125 mg In Sodium Chloride 0.9% 100 ml @ 100 mls/hr IVPB DAILY [facility] Rx#:[id number] Intake, IV Titration 18.082 Amount Norepinephrine 4 mg In 18.082 Sodium Chloride 0.9% 250 ml @ 0.03 MCG/KG/MIN 11. 147 mls/hr IV .[id number] [facility] Rx#:[id number] Oral 100 Output: Urine 1260 Other: Voiding Method Indwelling Catheter - Exam Mild respiratory distress, oriented 3. The patient is currently 3 liters of oxygen. He is very pale. HEENT examination is grossly unremarkable. Mucous membranes are moist. No oral lesions. Neck supple. Full range of motion. No adenopathy thyromegaly or neck vein distention. Cardiovascular examination reveals regular rhythm rate. S1-S2 normal. No S3 or S4. No discernible murmur noted. Lungs reveal scattered rhonchi and crackles. Breath sounds equal. No wheezes. Abdomen soft bowel sounds are heard. No masses or tenderness. Dried blood is noted in the area of the groin, over his lower abdomen, scrotum, and penis. Extremities are intact. No cyanosis clubbing or edema. Skin is without rash or lesion. Neurologic examination is brief but nonfocal. - Labs CBC & Chem 7: 01/10/25 06:49 01/10/25 06:49 Labs: Abnormal Lab Results - Last 24 Hours (Table) 01/10/25 01/10/25 Range/Units 06:49 06:49 RBC 3.20 L (4.30-5.90) m/uL Hgb 7.9 L (13.0-17.5) gm/dL Hct 26.6 L (39.0-53.0) % MCH 24.8 L (25.0-35.0) pg MCHC 29.9 L (31.0-37.0) g/dL RDW 19.4 H (11.5-15.5) % Plt Count 95 L (150-450) k/uL Lymphocytes # 0.8 L (1.0-4.8) k/uL Sodium 136 L (137-145) mmol/L BUN 42 H (9-20) mg/dL Creatinine 1.65 H (0.66-1.25) mg/dL Glucose 115 H (74-99) mg/dL Calcium 7.7 L (8.4-10.2) mg/dL Assessment and Plan Assessment: Acute lower GI bleed, with severe anemia. Rule out non-ST segment elevation myocardial infarction. Probable congestive heart failure, secondary to non-ST segment elevation myocardial infarction. Ejection fraction by echocardiogram 15 to 20%. History of previous myocardial infarction. History of asthma. History of CVA. History of hyperlipidemia. History of hypertension. History of melanoma, with possible metastatic melanoma. History of osteoarthritis. Plan: Plan dated January 06, 2025. The patient was seen in the emergency department, room #1. The patient presented via the EMS, with lower GI bleed. He was having bright red bleeding per rectum. The patient's initial hemoglobin was 5.7. He was seen by Dr. Mason in the emergency department, and received 2 units of PRBCs, 2 units of fresh frozen plasma, and 1 unit of platelets. In addition, the patient received DDAVP, Protonix, saline at 130 cc an hour, and nasal O2 at 3 L. The patient will be admitted to the intensive care unit, for further monitoring and management. The patient had an EGD by Dr. Zaldivar which did not show any active GI bleeding. We will continue to follow make recommendations along the way. Prognosis is guarded. Frequent hemoglobin checks. Hemodynamic status is stable. Plan dated January 07, 2025. The patient's chest x-ray is consistent with CHF/fluid overload. The patient's BNP was quite high. In addition, the troponin level was very high. We will going to have cardiology see this patient. The patient is apparently scheduled for a colonoscopy today. He has received a total of 4 units of PRBCs, 2 units of fresh frozen plasma, 1 unit of platelets, and DDAVP since he has been here. His EGD done yesterday did not reveal any active bleeding. Currently, he is hypotensive, and requires norepinephrine at 5 mcg/min. He also is using BiPAP intermittently, with settings of 12/5, and 30%. Labs, x-rays, and all medications are reviewed. Prognosis is guarded. We will continue to follow make recommendations. Dictation was produced using [employer] software. Please excuse any grammatical, word or spelling errors. Plan dated January 08, 2025. The patient is seen today in room 256. He is currently on 4 L of oxygen by nasal cannula. He is getting saline at KVO, and norepinephrine for blood pressure support of 3.4 mcg/min. Chest x-ray shows cardiomegaly, changes of pulmonary vascular congestion, and CHF. He has not used the BiPAP. His colonoscopy revealed evidence of diverticular disease, and hemorrhoids. There is been no further bleeding. Procalcitonin level is 0.47. Zosyn is discontinued. The patient has received a total of 4 units of PRBCs, 2 units of fresh frozen plasma, and 1 unit of platelets. He also received DDAVP. All labs, x-rays, and medications are reviewed. He remains critically ill. Prognosis is guarded. We will continue to follow the patient, make recommendations. Dictation was produced using [employer] software. Please excuse any grammatical, word or spelling errors. Plan dated January 09, 2025. The patient is seen today in room 256. He continues on O2 at 4 L. He is on dobutamine per cardiology 2.5 mcg/kg/min. By echocardiogram, his ejection fraction is estimated to be 15 to 20%. He did require BiPAP last night, with settings of 12/5, and 40%. I did have a conversation with the patient about CODE STATUS. At this point he is a full code. He apparently has a daughter that he does not have much of relationship with, but would like to discuss CODE STATUS with her. Will see if we can get those 2 together. Additional recommendations and suggestions are forthcoming. All labs, x-rays, medications are reviewed. The patient's overall prognosis remains very poor. No additional recommendations at this time. Dictation was produced using [employer] software. Please excuse any grammatical, word or spelling errors. Plan dated January 10, 2025. The patient remains critically ill. He is on nasal O2 at 3 L. He does use a BiPAP at nighttime, from anywhere from 6 to 8 hours. BiPAP settings are 12/5, and 40%. He continues on amiodarone at 0.5 mg/min. Norepinephrine has been weaned off. He is not receiving any additional IV fluids. His procalcitonin level is 0.47. Antibiotics, i.e. Zosyn, will be discontinued. Labs, x-rays, and all medications are reviewed. We will continue to follow with patient, make recommendations along the way. The patient's overall prognosis remains guarded. Dictation was produced using [employer] software. Please excuse any grammatical, word or spelling errors. Time with Patient: Greater than 30
--- NOTE | 2025-01-10 12:14 | P.PN ---
Subjective Progress Note Date: 01/10/25 Patient is seen for follow-up for acute kidney injury. Underlying chronic kidney disease stage IIIb with baseline creatinine around 1.4 to 1.5 mg/dL. Admitted with GI bleed. Significant hypotension on initial admission. Status post IV hydration and developed volume overload with CHF exacerbation. Currently off of IV fluids and received Lasix yesterday. Serum creatinine trend to 1.6 from 2.0 mg/dL. UO > 3 L on IV Lasix 40 mg BID off dobutamine and levophed low K level, s/p replacement Objective - Vital Signs Vital signs: Vital Signs Temp 98.0 F 01/10/25 12:00 Pulse 123 H 01/10/25 12:00 Resp 20 01/10/25 12:00 BP 84/51 01/10/25 12:00 Pulse Ox 99 01/10/25 12:00 FiO2 50 01/09/25 04:00 Intake & Output 01/09/25 01/10/25 01/10/25 17:59 06:59 18:59 Intake Total 318.082 Output Total 1260 Balance -941.918 Weight Intake: IV 200 Magnesium Sulfate-D5w Pmx 100 1 gm In Dextrose/Water 1 100ml.bag @ 100 mls/hr IVPB ONCE ONE Rx#: [id number] Piperacillin-Tazobactam 3 .375 gm In Sodium Chloride 0.9% 100 ml @ 25 mls/hr IVPB Q8H [facility] Rx#: [id number] Sodium Ferric Gluconat- 100 Sucrose 125 mg In Sodium Chloride 0.9% 100 ml @ 100 mls/hr IVPB DAILY [facility] Rx#:[id number] Intake, IV Titration 18.082 Amount Norepinephrine 4 mg In 18.082 Sodium Chloride 0.9% 250 ml @ 0.03 MCG/KG/MIN 11. 147 mls/hr IV .[id number] [facility] Rx#:[id number] Oral 100 Output: Urine 1260 Other: Voiding Method Indwelling Catheter - Exam Patient is seen in the ICU Maintained on nasal cannula. Off of BiPAP Examination of the heart S1 and S2 Examination of the lungs bilateral breath sounds are heard Abdomen is soft nontender Examination of lower extremities shows chronic skin changes, no significant edema - Labs CBC & Chem 7: 01/10/25 06:49 01/10/25 06:49 Labs: Abnormal Lab Results - Last 24 Hours (Table) 01/10/25 01/10/25 Range/Units 06:49 06:49 RBC 3.20 L (4.30-5.90) m/uL Hgb 7.9 L (13.0-17.5) gm/dL Hct 26.6 L (39.0-53.0) % MCH 24.8 L (25.0-35.0) pg MCHC 29.9 L (31.0-37.0) g/dL RDW 19.4 H (11.5-15.5) % Plt Count 95 L (150-450) k/uL Lymphocytes # 0.8 L (1.0-4.8) k/uL Sodium 136 L (137-145) mmol/L BUN 42 H (9-20) mg/dL Creatinine 1.65 H (0.66-1.25) mg/dL Glucose 115 H (74-99) mg/dL Calcium 7.7 L (8.4-10.2) mg/dL Assessment and Plan Assessment: 1. Acute kidney injury, ATN, nonoliguric secondary to hypotension and anemia. Check UA. CT abdomen does not show any evidence of obstruction. 2. Chronic kidney disease stage IIIb with baseline creatinine 1.4 to 1.5 mg/dL. Previous UA showed trace protein on 09/29/2024. Etiology is likely nephrosclerosis 3. GI bleed status post packed RBCs transfusion x4 along with FFP and 1 unit of platelets 4. Anemia from acute blood loss from acute GI bleed 5. Acute hypoxic respiratory failure secondary to CHF exacerbation 6. Elevated troponins, cardiology on consult 7. UA + RBC/ WBC, he is on zosyn 8. A fib with RVR, on amio drip, started on digoxin Plan: Maintain on scheduled dose of IV Lasix , currently on 40 mg BID -> consider switching to PO 40 mg BID if ok with cardiology Continue Aranesp low iron stores, start IV iron supplement check urine culture Repeat labs in a.m
--- NOTE | 2025-01-10 13:24 | P.PN ---
Subjective Progress Note Date: 01/10/25 89-year-old male patient with past medical history significant for coronary artery disease status post stenting 2021, ischemic cardiomyopathy with a EF 40 to 45%, history of CVA with left-sided residual deficits, hypertension, hyperlipidemia, hard of hearing, history of skin cancer who presented to ER with a complaint of blood in the stools. Patient was brought to the ER by EMS, was noted to have large bloody bowel movement, was complaining of dizziness, also complained of nausea and abdominal discomfort. Patient was afebrile on presentation, was tachycardic and hypotensive, initially was on on room air, later on required supplemental oxygen 2 L after IV fluids. WBCs 12.5, hemoglobin 5.7, came up to 7.4 after 3 units. Platelet 227. INR 1.3. Sodium 139, potassium 5.4, chloride 107, CO2 12, BUN 51, creatinine 2.03, GFR 30. Liver profile unremarkable. Chest x-ray showed small left pleural effusion with left basilar opacities, diffuse interstitial prominence. 01/07--patient was seen and examined today. Patient is afebrile, heart rate 91, respiratory rate 27, blood pressure 99/56, saturating 99%, currently on BiPAP with 30% FiO2. WBCs 12.1, hemoglobin 8.3, platelet 158. Sodium 143, potassium 4.9, BUN 59, creatinine 2.17. Troponin was 16.5, went up to 12.2. proBNP 11,600. Patient underwent colonoscopy today which showed normal-appearing colon from rectum to cecum with no evidence of colitis or colorectal neoplasia, no active GI bleed, scattered sigmoid diverticulosis. Grade 2 hemorrhoids. 01/08--patient initially presented to ED with GI bleed, transferred to ICU for GI bleed, hemorrhagic shock, requiring Levophed, underwent EGD and colonoscopy, showed diverticular disease and hemorrhoids, required 4 unit of packed RBCs, 2 units of fresh frozen plasma, 1 unit of platelets, DDAVP, no further bleeding at this point, hemoglobin is now stable. Remains on norepinephrine. On 4 L oxygen. Cardiology following for NSTEMI. Patient is afebrile, heart rate 92, respiratory rate 27, saturating 100% on 3 L. Blood pressure is soft 93/56. Patient currently on Levophed. Chest x-ray showed pleural effusion, CHF. Echocardiogram showed severe LV dysfunction with EF less than 20%, RV enlargement, moderate to severe pulmonary hypertension, reduced aortic valve excursion/opening. WBCs 8.5, hemoglobin 8.4, platelet 120. Sodium 139, potassium 4.2, chloride 102, CO2 24, BUN 60, creatinine 2.15. UA showed large leukocyte Estrace, RBCs WBCs. Patient is currently on Zosyn. ICU, nephrology, cardiology GI has been consulted. 01/09. Patient seen and examined. Currently states he is doing okay. Patient currently on dobutamine drip. Hemoglobin this morning is 7.3. 01/10. Patient seen and examined. Sitting upright in the bed. Discussed with him regarding goals of care, he wants her daughter to make a decision regarding CODE STATUS. Denies any chest pain. Gets short of breath on exertion REVIEW OF SYSTEMS: CONSTITUTIONAL: No fever, no malaise,. CARDIOVASCULAR: No chest pain, no palpitations, no syncope. PULMONARY: No shortness of breath, no cough, GASTROINTESTINAL: No diarrhea, no nausea, no vomiting, no abdominal pain. NEUROLOGICAL: No headaches, no weakness, PHYSICAL EXAMINATION: GENERAL: The patient is alert and oriented x3, ill looking HEENT: Pupils are round and equally reacting to light. EOMI. No scleral icterus. No conjunctival pallor. Normocephalic, atraumatic. No pharyngeal erythema. No thyromegaly. CARDIOVASCULAR: S1 and S2 present. No murmurs, rubs, or gallops. PULMONARY: Diminished breath sounds at the bases bilaterally no wheezing or crackles. ABDOMEN: Soft, nontender, nondistended, normoactive bowel sounds. No palpable o rganomegaly. MUSCULOSKELETAL: No joint swelling or deformity. EXTREMITIES: No cyanosis, clubbing, or pedal edema. NEUROLOGICAL: Gross neurological examination did not reveal any focal deficits. 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 Hypertension Hyperlipidemia Hard of hearing History of CVA with left-sided weakness Acute hypoxic respiratory failure Fluid overload: Skin cancer: History of melanoma Osteoarthritis History of asthma Monitor vital signs Monitor CBC Monitor CMP Continue telemetry monitoring Encourage use of incentive spirometer status post EGD showed no active GI bleed. Colonoscopy / negative for any active bleed, per GI likely to diverticular bleed which is stopped now. CT abdomen pelvismoderate bilateral pleural effusion, dependent airspace consolidation, abdominal ascites, dilated small bowel measuring up to 2.7 cm, atrophic kidneys, diverticulosis. echo showed EF less than 20%, decreased opening/excursion of aortic valve, moderate to severe pulmonary hypertension. Continue amiodarone Started on digoxin Levophed has been discontinued Continue IV Protonix IV Zosyn discontinued Hold aspirin and Plavix Hold antihypertensives Strict I's and O's, daily weights, continue IV Lasix 40 mg every 12 Nephrology following Cardiology following ICU following Labs and medication were reviewed.. Continue same treatment. Continue with symptomatic treatment. Resume home medication. Monitor labs and vitals. DVT and GI prophylaxis. Further recommendations as per clinical course of the patient Dictation was produced using [employer] dictation software. please excuse any grammatical, word or spelling errors. Objective - Vital Signs Vital signs: Vital Signs Temp 98.0 F 01/10/25 12:00 Pulse 104 H 01/10/25 13:11 Resp 26 H 01/10/25 13:00 BP 105/64 01/10/25 13:00 Pulse Ox 95 01/10/25 13:00 FiO2 50 01/09/25 04:00 Intake & Output 01/09/25 01/10/25 01/10/25 17:59 06:59 18:59 Intake Total 318.082 Output Total 1510 Balance -1191.918 Weight Intake: IV 200 Magnesium Sulfate-D5w Pmx 100 1 gm In Dextrose/Water 1 100ml.bag @ 100 mls/hr IVPB ONCE ONE Rx#: [id number] Piperacillin-Tazobactam 3 .375 gm In Sodium Chloride 0.9% 100 ml @ 25 mls/hr IVPB Q8H [facility] Rx#: [id number] Sodium Ferric Gluconat- 100 Sucrose 125 mg In Sodium Chloride 0.9% 100 ml @ 100 mls/hr IVPB DAILY [facility] Rx#:[id number] Intake, IV Titration 18.082 Amount Norepinephrine 4 mg In 18.082 Sodium Chloride 0.9% 250 ml @ 0.03 MCG/KG/MIN 11. 147 mls/hr IV .[id number] [facility] Rx#:[id number] Oral 100 Output: Urine 1510 Other: Voiding Method Indwelling Catheter - Labs CBC & Chem 7: 01/10/25 06:49 01/10/25 06:49 Labs: Abnormal Lab Results - Last 24 Hours (Table) 01/10/25 01/10/25 Range/Units 06:49 06:49 RBC 3.20 L (4.30-5.90) m/uL Hgb 7.9 L (13.0-17.5) gm/dL Hct 26.6 L (39.0-53.0) % MCH 24.8 L (25.0-35.0) pg MCHC 29.9 L (31.0-37.0) g/dL RDW 19.4 H (11.5-15.5) % Plt Count 95 L (150-450) k/uL Lymphocytes # 0.8 L (1.0-4.8) k/uL Sodium 136 L (137-145) mmol/L BUN 42 H (9-20) mg/dL Creatinine 1.65 H (0.66-1.25) mg/dL Glucose 115 H (74-99) mg/dL Calcium 7.7 L (8.4-10.2) mg/dL
--- NOTE | 2025-01-10 16:08 | P.BASOAP ---
Subjective Progress Note Date: 01/10/25 CHIEF COMPLAINT: GI bleed HISTORY OF PRESENT ILLNESS: The patient is a 84-year-old male brought in acutely with acute GI bleed, hypotension, pulmonary edema after massive resuscitation. He is in the ICU. No bleeding today. No bowel movements. He feels quite well. He is off all pressors. ROS: No reports of nausea and vomiting. No fevers or chills. No new chest pain. PHYSICAL EXAM: VITAL SIGNS: Reviewed CONSTITUTIONAL: Well developed and in no acute distress. EYES: Conjuctivae without sclera icterus. Extraocular movements grossly intact. HEAD, EARS, NOSE, THROAT: Moist buccal mucosa. Head is atraumatic, normocephalic. Hard of hearing. Left neck mass 3 x 3 cm without active bleed ing. RESPIRATORY: Non-labored respirations and equal bilateral excursions. CARDIOVASCULAR: Palpable 2+ radial pulses. ABDOMEN: Nondistended. Nontender. MUSCULOSKELETAL: No gross deformity of the lower extremities noted. No clubbing. No cyanosis. SKIN: Good skin turgor. Well perfused. NEUROLOGIC: Cranial nerves II through XII grossly intact. No focal or lateralizing signs. PSYCH: Appropriate affect. Alert and oriented to person, place and time. CLINICAL LABS: Reviewed. Creatinine improving from 2.08-1.65. Hemoglobin up 7.3-7.9. RADIOLOGY: Chest x-ray report demonstrates congestive heart failure ASSESSMENT: 1. Acute bolus anemia due to GI bleed 2. Severe pulmonary hypertension 3. Severe left ventricular hypokinesis 4. Hypertensive kidney disease stage III 5. Pulmonary edema with congestive heart failure PLAN: 1. Diet as tolerated. 2. Hemoglobin is stable and would recommend iron studies with correction of IV iron as needed Objective - Vital Signs Vital signs: Vital Signs Temp 98.0 F 01/10/25 12:00 Pulse 100 01/10/25 15:30 Resp 27 H 01/10/25 15:30 BP 93/56 01/10/25 15:30 Pulse Ox 96 01/10/25 15:30 FiO2 50 01/09/25 04:00 Intake & Output 01/09/25 01/10/25 01/10/25 17:59 06:59 18:59 Intake Total 518.082 Output Total 1885 Balance -1366.918 Weight Intake: IV 200 Magnesium Sulfate-D5w Pmx 100 1 gm In Dextrose/Water 1 100ml.bag @ 100 mls/hr IVPB ONCE ONE Rx#: [id number] Piperacillin-Tazobactam 3 .375 gm In Sodium Chloride 0.9% 100 ml @ 25 mls/hr IVPB Q8H [facility] Rx#: [id number] Sodium Ferric Gluconat- 100 Sucrose 125 mg In Sodium Chloride 0.9% 100 ml @ 100 mls/hr IVPB DAILY [facility] Rx#:[id number] Intake, IV Titration 18.082 Amount Norepinephrine 4 mg In 18.082 Sodium Chloride 0.9% 250 ml @ 0.03 MCG/KG/MIN 11. 147 mls/hr IV .[id number] [facility] Rx#:[id number] Oral 300 Output: Urine 1885 Other: Voiding Method Indwelling Catheter - Labs CBC & Chem 7: 01/10/25 06:49 01/10/25 06:49 Labs: Abnormal Lab Results - Last 24 Hours (Table) 01/10/25 01/10/25 Range/Units 06:49 06:49 RBC 3.20 L (4.30-5.90) m/uL Hgb 7.9 L (13.0-17.5) gm/dL Hct 26.6 L (39.0-53.0) % MCH 24.8 L (25.0-35.0) pg MCHC 29.9 L (31.0-37.0) g/dL RDW 19.4 H (11.5-15.5) % Plt Count 95 L (150-450) k/uL Lymphocytes # 0.8 L (1.0-4.8) k/uL Sodium 136 L (137-145) mmol/L BUN 42 H (9-20) mg/dL Creatinine 1.65 H (0.66-1.25) mg/dL Glucose 115 H (74-99) mg/dL Calcium 7.7 L (8.4-10.2) mg/dL Assessment/Plan Plan: Date: 01/06/25 Initial Weight: Initial BMI: Current Weight: 110.3 kg Current BMI: Type of Surgery: Total Volume in Band: Previous Volume: Volume Removed: Volume Added: Band Size:
--- NOTE | 2025-01-10 18:24 | P.PN ---
Subjective Progress Note Date: 01/10/25 HISTORY OF PRESENTING ILLNESS: Patient is a 89-year-old male with past medical history of CAD status post PCI in 2021, ischemic cardiomyopathy with a EF of 40 to 45%, history of CVA, left- sided residual deficit, hypertension, dyslipidemia, skin cancer, difficulty in hearing. He presented to the ER because of blood in stools. Patient was brought to the ER by EMS and was noted to have a large bloody bowel movement and patient was complaining of dizziness nausea and abdominal discomfort. On admission he was tachycardic with hypotension. Admission labs shows hemoglobin of 5.7, received 3 units of blood transfusion. Platelets were 227. INR was 1.3. Creatinine was 2.03, GFR 30. On admission he had an urgent upper GI endoscopy which did not show any active upper GI bleeding. Mild hiatal hernia, mild duodenitis. Following this on 01/07/2027 patient underwent colonoscopy which showed grade 2 hemorrhoids, normal- appearing rectum and colon, no active GI bleeding, scattered sigmoid diverticul osis. On admission his EKG and telemetry showed significant atrial and ventricular ectopy for which cardiology was consulted. For this we gave patient 1 amp of bicarb, calcium gluconate and 2 g of magnesium sulfate. On admission he also had significant elevation of troponin at 16, repeat at 12. On admission he had significant lactic acidosis with lactate of 6.04 Patient was last admitted in September 2021 where he was seen by cardiology. At that time he had evidence of mechanical fall rhabdomyolysis and NSTEMI with a troponin level of 24. Prior cardiac workup His echo from June 2024 shows an EF of 55%, mild LVH, trace aortic regurgitation, mild aortic stenosis. Cardiac cath from August 2022 shows 80% proximal RCA, 50% mid to distal RCA, 80% proximal PDA, PCI of mid RCA with 2 overlapping RICHARDSON. PCI of PDA. Last echo from September 2024 shows an EF of 40%, anteroapical and septal hypokinesia, moderately impaired LV systolic function. Moderate pulmonary hypertension, mild aortic stenosis mean gradient 11 mmHg, Progress note 01/08/2025 Patient is seen and examined at bedside this a.m. Hemoglobin has somewhat stabilized around 8. Kidney function is somewhat stable. She appears volume overloaded with 1-2+ pitting edema in bilateral thigh. He also has elevated JVP. He appears sick. Echo shows an EF of 20% globally reduced LVEF. Mildly dilated LV cavity. He does appear volume overloaded on physical examination. 01/09/2025 Patient was started on dobutamine drip at 2.5 mcg yesterday along with IV diuretics. Patient responded well with good urine output with marginally improved kidney function. However this morning he is noticed to be tachycardic with heart rate in the 130s. I will discontinue his dobutamine drip continue IV diuretics. Blood pressure is holding without dobutamine or pressors. Hemoglobin 7.3 today. It appears that patient has gone into atrial fibrillation after starting dobutamine drip. I will start amiodarone without bolus. Without bolus to avoid hypotension. Negative fluid balance of 900 cc since yesterday while on dobutamine drip and IV Lasix. 01/10/2025 Patient continues to be in atrial fibrillation with a heart rate around 100 and 110 bpm. His blood pressure is low normal. He is not requiring any pressors at this time. Kidney function improved since yesterday creatinine is 1.6 today. Hemoglobin is stable at 7.9. PHYSICAL EXAMINATION: Neck: Brisk carotid upstroke, elevated jugular venous distention. Lungs: Poor respiratory effort with mild crackles and rhonchi Heart: Irregularly irregular, mild systolic murmur audible Abdomen: Soft nontender, mild tenderness, positive bowel sounds Extremities: 1-2+ pitting edema in thighs bilaterally Neuro: Alert, oritented, generalized weak, detailed neuro exam was not perfo rmed. ASSESSMENT: # Atrial fibrillation with RVR # Acute lower GI bleeding with severe anemia # Mixed shock state, with component of hemorrhagic, distributive shock and cardiogenic shock # Acute HFrEF exacerbation. LVEF 20%. Likely competent of stress-induced cardiomyopathy on top of previously existing ischemic cardiomyopathy. # Elevated troponin, likely type II NSTEMI from demand supply mismatch # History of ischemic cardiomyopathy. # CAD status post PCI to RCA and PDA in 2021 # History of skin cancer, possible metastatic melanoma # History of CVA Cardiac testing Echo from this admission shows an EF of 20%, aortic stenosis with low-flow low gradient state. When compared to prior echo from September 2024, LVEF has dropped. Previous LVEF documented at 40%. PLAN: Continue amiodarone drip Continue aspirin as hemoglobin stable now Continue Lipitor 40 mg daily Hold dobutamine. Continue Lasix 40 mg twice daily. Avoid using beta-blockers. Goal MAP 65 mmHg. IV iron supplementation. Monitor urine output, monitor electrolytes and kidney function. Monitor telemetry Continue pressor support, monitor hemoglobin level and watch for any signs of bleeding. Overall patient's prognosis very poor. Patient is not a candidate for heart catheterization or PCI because of low hemoglobin and poor kidney function at this time. On last admission September patient had a peak troponin of 32. It appears that patient has chronically elevated troponin enzyme. Objective - Vital Signs Vital signs: Vital Signs Temp 98.2 F 01/10/25 16:00 Pulse 98 01/10/25 18:00 Resp 27 H 01/10/25 18:00 BP 77/57 01/10/25 18:00 Pulse Ox 98 01/10/25 18:00 FiO2 50 01/09/25 04:00 Intake & Output 01/09/25 01/10/25 01/10/25 17:59 06:59 18:59 Intake Total 954.753 Output Total 2230 Balance -1275.247 Weight Intake: IV 200 Magnesium Sulfate-D5w Pmx 100 1 gm In Dextrose/Water 1 100ml.bag @ 100 mls/hr IVPB ONCE ONE Rx#: [id number] Piperacillin-Tazobactam 3 .375 gm In Sodium Chloride 0.9% 100 ml @ 25 mls/hr IVPB Q8H [facility] Rx#: [id number] Sodium Ferric Gluconat- 100 Sucrose 125 mg In Sodium Chloride 0.9% 100 ml @ 100 mls/hr IVPB DAILY [facility] Rx#:[id number] Intake, IV Titration 254.753 Amount Amiodarone 450 mg In 236.671 Dextrose 5% in Water 250 ml @ 0.5 MG/MIN 16.667 mls/hr IV .Q15H [facility] Rx#: [id number] Norepinephrine 4 mg In 18.082 Sodium Chloride 0.9% 250 ml @ 0.03 MCG/KG/MIN 11. 147 mls/hr IV .[id number] [facility] Rx#:[id number] Oral 500 Output: Urine 2230 Other: Voiding Method Indwelling Catheter - Labs CBC & Chem 7: 01/10/25 06:49 01/10/25 06:49 Labs: Abnormal Lab Results - Last 24 Hours (Table) 03/09/25 03/09/25 Range/Units 06:49 06:49 RBC 3.20 L (4.30-5.90) m/uL Hgb 7.9 L (13.0-17.5) gm/dL Hct 26.6 L (39.0-53.0) % MCH 24.8 L (25.0-35.0) pg MCHC 29.9 L (31.0-37.0) g/dL RDW 19.4 H (11.5-15.5) % Plt Count 95 L (150-450) k/uL Lymphocytes # 0.8 L (1.0-4.8) k/uL Sodium 136 L (137-145) mmol/L BUN 42 H (9-20) mg/dL Creatinine 1.65 H (0.66-1.25) mg/dL Glucose 115 H (74-99) mg/dL Calcium 7.7 L (8.4-10.2) mg/dL
[2025-01-10] MEDS: ASPIRIN 81 MG PO SCH (18:42)
[2025-01-11 07:09] LABS: ALT 17 U/L (4-49); AST 30 U/L (17-59); African American GFR (CKD) 40 (>60 ml/min/1.73 sqM); Albumin 2.6 g/dL (3.5-5.0); Alkaline Phosphatase 89 U/L (38-126); Anion Gap 4 mmol/L; Anisocytosis Slight; Basophils % (A) 0 %; Blood Urea Nitrogen 39 mg/dL (9-20); Calcium 7.8 mg/dL (8.4-10.2); Carbon Dioxide 31 mmol/L (22-30); Chloride 100 mmol/L (98-107); Eosinophils # (A) 0.1 k/uL (0-0.7); Eosinophils % (A) 1 %; Glucose 115 mg/dL (74-99); HGB 7.8 gm/dL (13.0-17.5); Hypochromasia Marked; Lymphocytes # (A) 0.9 k/uL (1.0-4.8); Lymphocytes % (A) 14 %; MCH 24.6 pg (25.0-35.0); MCHC 29.9 g/dL (31.0-37.0); MCV 82.4 fL (80.0-100.0); Mean Platelet Volume 9.6; Microcytosis Slight; Monocytes # (A) 0.6 k/uL (0-1.0); Monocytes % (A) 9 %; Neutrophils # (A) 4.7 k/uL (1.3-7.7); Neutrophils % (A) 74 %; Non-African American GFR(CKD) 35 (>60 ml/min/1.73 sqM); Poikilocytosis Slight; Potassium 3.5 mmol/L (3.5-5.1); RBC 3.16 m/uL (4.30-5.90); RDW 19.7 % (11.5-15.5); Sodium 135 mmol/L (137-145); Total Bilirubin 0.7 mg/dL (0.2-1.3); Total Protein 6.1 g/dL (6.3-8.2); WBC 6.3 k/uL (3.8-10.6)
[2025-01-11 07:25] LABS: Platelet Count 94 k/uL (150-450)
--- NOTE | 2025-01-11 07:44 | XR ---
EXAMINATION TYPE: XR chest 1V portable DATE OF EXAM: 01/11/2025 4:54 AM COMPARISON: Chest radiograph from one day prior. CLINICAL INDICATION: Male, 84 years old with history of CHF f/u; [facility] TECHNIQUE: XR chest 1V portable Frontal view of the chest. FINDINGS: Lungs/Pleura: No evidence of focal consolidation or pneumothorax. Blunting of the costophrenic angles is present. Pulmonary vascularity: Pulmonary vascular congestion. Heart/mediastinum: Cardiomediastinal silhouette is prominent in size. Musculoskeletal: No acute osseous pathology. IMPRESSION: Similar pulmonary vascular congestion and cardiomegaly with suspected trace bilateral pleural effusio ns.. [facility], , 01/11/2025 7:42 AM
[2025-01-11] MEDS: AMIODARONE 200 MG TAB PO SCH (08:43)
[2025-01-11] MEDS: POTASSIUM CHLORIDE ER 20 MEQ TAB.ER PO SCH ×2 (10:03→22:05)
--- NOTE | 2025-01-11 10:19 | P.PN ---
Subjective Progress Note Date: 01/11/25 On 01/11/2025, the patient is being seen for a follow-up. The patient this morning is calm and comfortable. Slightly bronchospastic and wheezy on examination. Nevertheless, he denies having any significant shortness of breath and the patient remains on 2 L of oxygen by nasal cannula. The patient is post acute GI bleeding with secondary anemia. The patient underwent a colonoscopy on 01/07/2025 and the patient was found to have a normal appearing colon from rectum to cecum. No evidence of any colitis or malignancy. No evidence of any active bleeding. There was scattered sigmoid diverticulosis and grade 2 hemorrhoids. During the course of this hospitalization, the patient received a total of 4 units of packed RBC, 2 units of fresh frozen plasma and 1 unit of platelet. The patient is currently on IV hydration. Hemoglobin is at 7.8. On a separate note, the patient is in atrial fibrillation. He remains on amiodarone at 0.5 mg/min. Rate is under better control for now. His echocardiogram done on 01/07/2025 showed evidence of severe LV dysfunction with an ejection fraction of 15 to 20% along with low-grade aortic stenosis without any regurgitation, moderate to severe pulmonary pretension with estimated right ventricular systolic pressure of 54. The patient remains on IV Lasix 40 mg every 12 hours. Fluid balance is negative over the past 24 hours and this is in the order of - 2.6 L. Chest x-ray from today is still showing pulm vascular congestion and cardiomegaly and small bilateral pleural effusions. Objective - Vital Signs Vital signs: Vital Signs Temp 98.9 F 01/11/25 00:00 Pulse 91 01/11/25 08:01 Resp 26 H 01/11/25 07:00 BP 86/59 01/11/25 07:00 Pulse Ox 98 01/11/25 07:00 FiO2 50 01/09/25 04:00 Intake & Output 01/10/25 01/11/25 01/11/25 18:59 06:59 18:59 Intake Total 954.753 Output Total 2230 1390 Balance -1275.247 -1390 Weight 111.8 kg Intake: IV 200 Magnesium Sulfate-D5w Pmx 100 1 gm In Dextrose/Water 1 100ml.bag @ 100 mls/hr IVPB ONCE ONE Rx#: [id number] Sodium Ferric Gluconat- 100 Sucrose 125 mg In Sodium Chloride 0.9% 100 ml @ 100 mls/hr IVPB DAILY [facility] Rx#:[id number] Intake, IV Titration 254.753 Amount Amiodarone 450 mg In 236.671 Dextrose 5% in Water 250 ml @ 0.5 MG/MIN 16.667 mls/hr IV .Q15H [facility] Rx#: [id number] Norepinephrine 4 mg In 18.082 Sodium Chloride 0.9% 250 ml @ 0.03 MCG/KG/MIN 11. 147 mls/hr IV .[id number] [facility] Rx#:[id number] Oral 500 Output: Urine 2230 1390 Other: Voiding Method Indwelling Catheter Indwelling Catheter - Exam Mild respiratory distress, oriented 3. The patient is currently 2 L of oxygen by nasal cannula. No signs of any significant respiratory distress HEENT examination is grossly unremarkable. Mucous membranes are moist. No oral lesions. Neck supple. Full range of motion. No adenopathy thyromegaly or neck vein distention. Cardiovascular examination reveals irregular consistent with atrial fibrillation. No S3 or S4. No discernible murmur noted. Lungs reveal scattered rhonchi and crackles. Breath sounds equal. Expiratory wheezes throughout the lung chavez bilaterally Abdomen soft bowel sounds are heard. No masses or tenderness. Dried blood is noted in the area of the groin, over his lower abdomen, scrotum, and penis. Extremities are intact. No cyanosis clubbing or edema. Skin is without rash or lesion. Neurologic examination is brief but nonfocal. - Labs CBC & Chem 7: 01/11/25 05:50 01/11/25 05:50 Labs: Abnormal Lab Results - Last 24 Hours (Table) 01/11/25 01/11/25 Range/Units 05:50 05:50 RBC 3.16 L (4.30-5.90) m/uL Hgb 7.8 L (13.0-17.5) gm/dL Hct 26.0 L (39.0-53.0) % MCH 24.6 L (25.0-35.0) pg MCHC 29.9 L (31.0-37.0) g/dL RDW 19.7 H (11.5-15.5) % Plt Count 94 L (150-450) k/uL Lymphocytes # 0.9 L (1.0-4.8) k/uL Sodium 135 L (137-145) mmol/L Carbon Dioxide 31 H (22-30) mmol/L BUN 39 H (9-20) mg/dL Creatinine 1.78 H (0.66-1.25) mg/dL Glucose 115 H (74-99) mg/dL Calcium 7.8 L (8.4-10.2) mg/dL Total Protein 6.1 L (6.3-8.2) g/dL Albumin 2.6 L (3.5-5.0) g/dL Assessment and Plan Plan: Acute lower GI bleed, with severe anemia. Colonoscopy was done on 01/07/2025. No evidence of any acute bleeding. No evidence of any malignancy. Scattered sigmoid diverticulosis and grade 2 internal hemorrhoids. Acute anemia, secondary blood loss and the patient was transfused a total of 4 units of packed RBC during this current hospitalization Acute hypoxic respiratory failure currently on 2 L of oxygen by nasal cannula, chest x-ray continues to show pulm vessel congestion and edema in addition to small bilateral pleural effusion and the patient currently on IV Lasix with a negative fluid balance. Acute non-ST segment elevation myocardial infarction Versus demand type of myocardial ischemia. Chronic systolic heart failure with an ejection fraction of 15 to 20% with secondary pulm hypertension, severe with a PA pressure of 56. Atrial fibrillation, with a right History of asthma. History of CVA. History of hyperlipidemia. History of hypertension. History of melanoma, with possible metastatic melanoma. History of osteoarthritis. Plan: Keep the patient oxygen at 2 L nasal cannula Continue IV Lasix Close balance is negative Discontinue the amiodarone drip and put the patient on amiodarone 400 mg p.o. twice a day IV iron Monitor hemoglobin and Bronchodilators with DuoNeb just 4 times a day Financial Aid Counselor on the case regarding his systolic heart failure and chronic atrial fibrillation No anticoagulants for now Will continue to follow. Evaluation was done and 31 minutes. Time with Patient: Greater than 30
--- NOTE | 2025-01-11 10:30 | P.PN ---
Subjective Patient is seen in follow-up for acute kidney injury on chronic kidney disease. Renal function fairly stable with creatinine 1.78. Now on oral amiodarone. Denies chest pain or shortness of breath. No active bleeding. Hemoglobin stable. Vital signs are stable. General: No acute distress. HEENT: Head exam is unremarkable. On nasal cannula. LUNGS: No audible rhonchi or wheezes. HEART: Rate and Rhythm are regular. ABDOMEN: Nontender. EXTREMITITES: No edema. Objective - Vital Signs Vital signs: Vital Signs Temp 98.1 F 01/11/25 08:00 Pulse 102 H 01/11/25 09:00 Resp 22 01/11/25 09:00 BP 97/67 01/11/25 09:00 Pulse Ox 100 01/11/25 08:00 FiO2 50 01/09/25 04:00 Intake & Output 01/10/25 01/11/25 01/11/25 18:59 06:59 18:59 Intake Total 954.753 100 Output Total 2230 1390 100 Balance -1275.247 -1390 0 Weight 111.8 kg Intake: IV 200 100 Magnesium Sulfate-D5w Pmx 100 1 gm In Dextrose/Water 1 100ml.bag @ 100 mls/hr IVPB ONCE ONE Rx#: [id number] Sodium Ferric Gluconat- 100 100 Sucrose 125 mg In Sodium Chloride 0.9% 100 ml @ 100 mls/hr IVPB DAILY [facility] Rx#:[id number] Intake, IV Titration 254.753 Amount Amiodarone 450 mg In 236.671 Dextrose 5% in Water 250 ml @ 0.5 MG/MIN 16.667 mls/hr IV .Q15H [facility] Rx#: [id number] Norepinephrine 4 mg In 18.082 Sodium Chloride 0.9% 250 ml @ 0.03 MCG/KG/MIN 11. 147 mls/hr IV .[id number] [facility] Rx#:[id number] Oral 500 Output: Urine 2230 1390 100 Other: Voiding Method Indwelling Catheter Indwelling Catheter Indwelling Catheter - Labs CBC & Chem 7: 01/11/25 05:50 01/11/25 05:50 Labs: Abnormal Lab Results - Last 24 Hours (Table) 01/11/25 01/11/25 Range/Units 05:50 05:50 RBC 3.16 L (4.30-5.90) m/uL Hgb 7.8 L (13.0-17.5) gm/dL Hct 26.0 L (39.0-53.0) % MCH 24.6 L (25.0-35.0) pg MCHC 29.9 L (31.0-37.0) g/dL RDW 19.7 H (11.5-15.5) % Plt Count 94 L (150-450) k/uL Lymphocytes # 0.9 L (1.0-4.8) k/uL Sodium 135 L (137-145) mmol/L Carbon Dioxide 31 H (22-30) mmol/L BUN 39 H (9-20) mg/dL Creatinine 1.78 H (0.66-1.25) mg/dL Glucose 115 H (74-99) mg/dL Calcium 7.8 L (8.4-10.2) mg/dL Total Protein 6.1 L (6.3-8.2) g/dL Albumin 2.6 L (3.5-5.0) g/dL Assessment and Plan Plan: Assessment: 1. Acute kidney injury secondary to ATN. Creatinine peaked at 2.18 this admission and is 1.78 today. No hydronephrosis noted on CT. 2. Chronic kidney disease stage IIIb with baseline creatinine near 1.5 secondary to nephrosclerosis. 3. A-fib with RVR now on oral meds. 4. Acute GI bleed status post blood transfusions this admission. Component of chronic kidney disease. Colonoscopy showed hemorrhoids and diverticulosis with no active bleeding. On Aranesp. 5. Volume overload. 6. Acute on chronic systolic CHF ejection fraction of 15 to 20% with moderate to severe pulmonary hypertension. 7. Hypokalemia from diuresis. Being replaced. Plan: Maintain IV Lasix. Will benefit from SGLT2 inhibitor. UA from this admission suggestive of UTI. Avoid nephrotoxins. Continue to monitor renal function and urine output.
--- NOTE | 2025-01-11 12:20 | P.PN ---
Subjective Progress Note Date: 01/10/25 CHIEF COMPLAINT: GI bleed HISTORY OF PRESENT ILLNESS: The patient is a 84-year-old male brought in acutely with acute GI bleed, hypotension, pulmonary edema after massive resuscitation. He is in the ICU. No bleeding today. No bowel movements. He feels quite well. He is off all pressors. ROS: No reports of nausea and vomiting. No fevers or chills. No new chest pain. PHYSICAL EXAM: VITAL SIGNS: Reviewed CONSTITUTIONAL: Well developed and in no acute distress. EYES: Conjuctivae without sclera icterus. Extraocular movements grossly intact. HEAD, EARS, NOSE, THROAT: Moist buccal mucosa. Head is atraumatic, normocephalic. Hard of hearing. Left neck mass 3 x 3 cm without active bleed ing. RESPIRATORY: Non-labored respirations and equal bilateral excursions. CARDIOVASCULAR: Palpable 2+ radial pulses. ABDOMEN: Nondistended. Nontender. MUSCULOSKELETAL: No gross deformity of the lower extremities noted. No clubbing. No cyanosis. SKIN: Good skin turgor. Well perfused. NEUROLOGIC: Cranial nerves II through XII grossly intact. No focal or lateralizing signs. PSYCH: Appropriate affect. Alert and oriented to person, place and time. CLINICAL LABS: Reviewed. Creatinine improving from 2.08-1.65. Hemoglobin up 7.3-7.9. RADIOLOGY: Chest x-ray report demonstrates congestive heart failure ASSESSMENT: 1. Acute bolus anemia due to GI bleed 2. Severe pulmonary hypertension 3. Severe left ventricular hypokinesis 4. Hypertensive kidney disease stage III 5. Pulmonary edema with congestive heart failure PLAN: 1. Diet as tolerated. 2. Hemoglobin is stable and would recommend iron studies with correction of IV iron as needed Objective - Vital Signs Vital signs: Vital Signs Temp 98.1 F 01/11/25 08:00 Pulse 91 01/11/25 11:40 Resp 22 01/11/25 09:00 BP 97/67 01/11/25 09:00 Pulse Ox 100 01/11/25 08:00 FiO2 50 01/09/25 04:00 Intake & Output 01/10/25 01/11/25 01/11/25 18:59 06:59 18:59 Intake Total 954.753 100 Output Total 2230 1390 450 Balance -1275.247 -1390 -350 Weight 111.8 kg Intake: IV 200 100 Magnesium Sulfate-D5w Pmx 100 1 gm In Dextrose/Water 1 100ml.bag @ 100 mls/hr IVPB ONCE ONE Rx#: [id number] Sodium Ferric Gluconat- 100 100 Sucrose 125 mg In Sodium Chloride 0.9% 100 ml @ 100 mls/hr IVPB DAILY [facility] Rx#:[id number] Intake, IV Titration 254.753 Amount Amiodarone 450 mg In 236.671 Dextrose 5% in Water 250 ml @ 0.5 MG/MIN 16.667 mls/hr IV .Q15H [facility] Rx#: [id number] Norepinephrine 4 mg In 18.082 Sodium Chloride 0.9% 250 ml @ 0.03 MCG/KG/MIN 11. 147 mls/hr IV .[id number] [facility] Rx#:[id number] Oral 500 Output: Urine 2230 1390 450 Uretheral (Dykes) 350 Other: Voiding Method Indwelling Catheter Indwelling Catheter Indwelling Catheter - Labs CBC & Chem 7: 01/11/25 05:50 01/11/25 05:50 Labs: Abnormal Lab Results - Last 24 Hours (Table) 01/11/25 01/11/25 Range/Units 05:50 05:50 RBC 3.16 L (4.30-5.90) m/uL Hgb 7.8 L (13.0-17.5) gm/dL Hct 26.0 L (39.0-53.0) % MCH 24.6 L (25.0-35.0) pg MCHC 29.9 L (31.0-37.0) g/dL RDW 19.7 H (11.5-15.5) % Plt Count 94 L (150-450) k/uL Lymphocytes # 0.9 L (1.0-4.8) k/uL Sodium 135 L (137-145) mmol/L Carbon Dioxide 31 H (22-30) mmol/L BUN 39 H (9-20) mg/dL Creatinine 1.78 H (0.66-1.25) mg/dL Glucose 115 H (74-99) mg/dL Calcium 7.8 L (8.4-10.2) mg/dL Total Protein 6.1 L (6.3-8.2) g/dL Albumin 2.6 L (3.5-5.0) g/dL
--- NOTE | 2025-01-11 14:27 | P.PN ---
Subjective Progress Note Date: 01/11/25 89-year-old male patient with past medical history significant for coronary artery disease status post stenting 2021, ischemic cardiomyopathy with a EF 40 to 45%, history of CVA with left-sided residual deficits, hypertension, hyperlipidemia, hard of hearing, history of skin cancer who presented to ER with a complaint of blood in the stools. Patient was brought to the ER by EMS, was noted to have large bloody bowel movement, was complaining of dizziness, also complained of nausea and abdominal discomfort. Patient was afebrile on presentation, was tachycardic and hypotensive, initially was on on room air, later on required supplemental oxygen 2 L after IV fluids. WBCs 12.5, hemoglobin 5.7, came up to 7.4 after 3 units. Platelet 227. INR 1.3. Sodium 139, potassium 5.4, chloride 107, CO2 12, BUN 51, creatinine 2.03, GFR 30. Liver profile unremarkable. Chest x-ray showed small left pleural effusion with left basilar opacities, diffuse interstitial prominence. 01/07--patient was seen and examined today. Patient is afebrile, heart rate 91, respiratory rate 27, blood pressure 99/56, saturating 99%, currently on BiPAP with 30% FiO2. WBCs 12.1, hemoglobin 8.3, platelet 158. Sodium 143, potassium 4.9, BUN 59, creatinine 2.17. Troponin was 16.5, went up to 12.2. proBNP 11,600. Patient underwent colonoscopy today which showed normal-appearing colon from rectum to cecum with no evidence of colitis or colorectal neoplasia, no active GI bleed, scattered sigmoid diverticulosis. Grade 2 hemorrhoids. 01/08--patient initially presented to ED with GI bleed, transferred to ICU for GI bleed, hemorrhagic shock, requiring Levophed, underwent EGD and colonoscopy, showed diverticular disease and hemorrhoids, required 4 unit of packed RBCs, 2 units of fresh frozen plasma, 1 unit of platelets, DDAVP, no further bleeding at this point, hemoglobin is now stable. Remains on norepinephrine. On 4 L oxygen. Cardiology following for NSTEMI. Patient is afebrile, heart rate 92, respiratory rate 27, saturating 100% on 3 L. Blood pressure is soft 93/56. Patient currently on Levophed. Chest x-ray showed pleural effusion, CHF. Echocardiogram showed severe LV dysfunction with EF less than 20%, RV enlargement, moderate to severe pulmonary hypertension, reduced aortic valve excursion/opening. WBCs 8.5, hemoglobin 8.4, platelet 120. Sodium 139, potassium 4.2, chloride 102, CO2 24, BUN 60, creatinine 2.15. UA showed large leukocyte Estrace, RBCs WBCs. Patient is currently on Zosyn. ICU, nephrology, cardiology GI has been consulted. 01/09. Patient seen and examined. Currently states he is doing okay. Patient currently on dobutamine drip. Hemoglobin this morning is 7.3. 01/10. Patient seen and examined. Sitting upright in the bed. Discussed with him regarding goals of care, he wants her daughter to make a decision regarding CODE STATUS. Denies any chest pain. Gets short of breath on exertion /10. Patient seen and examined. Blood work done this morning showedW6.3, hemoglobin 7.8, platelet count 94, sodium 135, Potassium 3.5, BUN 39, creatinine 1.78, glucose 115.Vital signs temperature afebrile, heart rate 91, respiration 22, blood pressure 9761, currently on 2 L of oxygen REVIEW OF SYSTEMS: CONSTITUTIONAL: No fever, no malaise,. CARDIOVASCULAR: No chest pain, no palpitations, no syncope. PULMONARY: No shortness of breath, no cough, GASTROINTESTINAL: No diarrhea, no nausea, no vomiting, no abdominal pain. NEUROLOGICAL: No headaches, no weakness, PHYSICAL EXAMINATION: GENERAL: The patient is alert and oriented x3, ill looking HEENT: Pupils are round and equally reacting to light. EOMI. No scleral icterus. No conjunctival pallor. Normocephalic, atraumatic. No pharyngeal erythema. No thyromegaly. CARDIOVASCULAR: S1 and S2 present. No murmurs, rubs, or gallops. PULMONARY: Diminished breath sounds at the bases bilaterally no wheezing or crackles. ABDOMEN: Soft, nontender, nondistended, normoactive bowel sounds. No palpable organomegaly. MUSCULOSKELETAL: No joint swelling or deformity. EXTREMITIES: No cyanosis, clubbing, or pedal edema. NEUROLOGICAL: Gross neurological examination did not reveal any focal deficits. 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 Hypertension Hyperlipidemia Hard of hearing History of CVA with left-sided weakness Acute hypoxic respiratory failure Fluid overload: Skin cancer: History of melanoma Osteoarthritis History of asthma Monitor vital signs Monitor CBC Monitor CMP Continue telemetry monitoring Encourage use of incentive spirometer status post EGD showed no active GI bleed. Colonoscopy 01/07 negative for any act zechariah bleed, per GI likely to diverticular bleed which is stopped now. CT abdomen pelvismoderate bilateral pleural effusion, dependent airspace consolidation, abdominal ascites, dilated small bowel measuring up to 2.7 cm, atrophic kidneys, diverticulosis. echo showed EF less than 20%, decreased opening/excursion of aortic valve, moderate to severe pulmonary hypertension. Continue amiodarone, switch from IV to oral Continue IV Protonix Hold aspirin and Plavix Hold antihypertensives Strict I's and O's, daily weights, continue IV Lasix 40 mg every 12 Nephrology following Cardiology following ICU following Labs and medication were reviewed.. Continue same treatment. Continue with symptomatic treatment. Resume home medication. Monitor labs and vitals. DVT and GI prophylaxis. Further recommendations as per clinical course of the patient Dictation was produced using Scan dictation software. please excuse any grammatical, word or spelling errors. Objective - Vital Signs Vital signs: Vital Signs Temp 98.1 F 01/11/25 08:00 Pulse 91 01/11/25 11:40 Resp 22 01/11/25 09:00 BP 97/67 01/11/25 09:00 Pulse Ox 100 01/11/25 08:00 FiO2 50 01/09/25 04:00 Intake & Output 01/10/25 01/11/25 01/11/25 18:59 06:59 18:59 Intake Total 954.753 100 Output Total 2230 1390 450 Balance -1275.247 -1390 -350 Weight 111.8 kg Intake: IV 200 100 Magnesium Sulfate-D5w Pmx 100 1 gm In Dextrose/Water 1 100ml.bag @ 100 mls/hr IVPB ONCE ONE Rx#: [id number] Sodium Ferric Gluconat- 100 100 Sucrose 125 mg In Sodium Chloride 0.9% 100 ml @ 100 mls/hr IVPB DAILY [facility] Rx#:[id number] Intake, IV Titration 254.753 Amount Amiodarone 450 mg In 236.671 Dextrose 5% in Water 250 ml @ 0.5 MG/MIN 16.667 mls/hr IV .Q15H [facility] Rx#: [id number] Norepinephrine 4 mg In 18.082 Sodium Chloride 0.9% 250 ml @ 0.03 MCG/KG/MIN 11. 147 mls/hr IV .[id number] [facility] Rx#:[id number] Oral 500 Output: Urine 2230 1390 450 Uretheral (Dykes) 350 Other: Voiding Method Indwelling Catheter Indwelling Catheter Indwelling Catheter - Labs CBC & Chem 7: 01/11/25 05:50 01/11/25 05:50 Labs: Abnormal Lab Results - Last 24 Hours (Table) 01/11/25 01/11/25 Range/Units 05:50 05:50 RBC 3.16 L (4.30-5.90) m/uL Hgb 7.8 L (13.0-17.5) gm/dL Hct 26.0 L (39.0-53.0) % MCH 24.6 L (25.0-35.0) pg MCHC 29.9 L (31.0-37.0) g/dL RDW 19.7 H (11.5-15.5) % Plt Count 94 L (150-450) k/uL Lymphocytes # 0.9 L (1.0-4.8) k/uL Sodium 135 L (137-145) mmol/L Carbon Dioxide 31 H (22-30) mmol/L BUN 39 H (9-20) mg/dL Creatinine 1.78 H (0.66-1.25) mg/dL Glucose 115 H (74-99) mg/dL Calcium 7.8 L (8.4-10.2) mg/dL Total Protein 6.1 L (6.3-8.2) g/dL Albumin 2.6 L (3.5-5.0) g/dL
--- NOTE | 2025-01-11 16:19 | P.PN ---
Subjective Progress Note Date: 01/11/25 CHIEF COMPLAINT: GI bleed HISTORY OF PRESENT ILLNESS: The patient is a 84-year-old male who presented with hypotension due to hypovolemia and acute blood loss anemia. He still in the ICU. No reports abdominal pain. He is tolerating regular diet eating sandwich. No complaints. No further signs of bleeding. Patient is not any vasopressors. ROS: No reports of nausea and vomiting. No fevers or chills. No new chest pain. PHYSICAL EXAM: VITAL SIGNS: Reviewed CONSTITUTIONAL: Well developed and in no acute distress. EYES: Conjuctivae without sclera icterus. Extraocular movements grossly intact. HEAD, EARS, NOSE, THROAT: Moist buccal mucosa. Head is atraumatic, normocephalic. Hard of hearing. Left neck mass 3 x 3 cm without active bleeding. RESPIRATORY: Non-labored respirations and equal bilateral excursions. CARDIOVASCULAR: Palpable 2+ radial pulses. ABDOMEN: Nondistended. Nontender. MUSCULOSKELETAL: No gross deformity of the lower extremities noted. No clubbing. No cyanosis. SKIN: Good skin turgor. Well perfused. NEUROLOGIC: Cranial nerves II through XII grossly intact. No focal or lateralizing signs. PSYCH: Appropriate affect. Alert and oriented to person, place and time. CLINICAL LABS: Reviewed. Hemoglobin down to 7.9-7.8. WBC normal. ASSESSMENT: 1. Acute bolus anemia due to GI bleed 2. Severe pulmonary hypertension 3. Severe left ventricular hypokinesis 4. Hypertensive kidney disease stage III 5. Pulmonary edema with congestive heart failure PLAN: 1. Hemoglobin has been stable however will monitor for any new signs of bleeding. 2. Transfer out of ICU once medically stable. Objective - Vital Signs Vital signs: Vital Signs Temp 97.8 F 01/11/25 12:40 Pulse 102 H 01/11/25 15:35 Resp 20 01/11/25 12:40 BP 96/58 01/11/25 12:40 Pulse Ox 97 01/11/25 12:40 FiO2 50 01/09/25 04:00 Intake & Output 01/10/25 01/11/25 01/11/25 18:59 06:59 18:59 Intake Total 954.753 450 Output Total 2230 1390 1000 Balance -1275.247 -1390 -550 Weight 111.8 kg Intake: IV 200 100 Magnesium Sulfate-D5w Pmx 100 1 gm In Dextrose/Water 1 100ml.bag @ 100 mls/hr IVPB ONCE ONE Rx#: [id number] Sodium Ferric Gluconat- 100 100 Sucrose 125 mg In Sodium Chloride 0.9% 100 ml @ 100 mls/hr IVPB DAILY [facility] Rx#:[id number] Intake, IV Titration 254.753 Amount Amiodarone 450 mg In 236.671 Dextrose 5% in Water 250 ml @ 0.5 MG/MIN 16.667 mls/hr IV .Q15H [facility] Rx#: [id number] Norepinephrine 4 mg In 18.082 Sodium Chloride 0.9% 250 ml @ 0.03 MCG/KG/MIN 11. 147 mls/hr IV .[id number] [facility] Rx#:[id number] Oral 500 350 Output: Urine 2230 1390 1000 Uretheral (Dykes) 900 Other: Voiding Method Indwelling Catheter Indwelling Catheter Indwelling Catheter # Bowel Movements 0 - Labs CBC & Chem 7: 01/11/25 05:50 01/11/25 14:04 Labs: Abnormal Lab Results - Last 24 Hours (Table) 01/11/25 01/11/25 01/11/25 Range/Units 05:50 05:50 14:04 RBC 3.16 L (4.30-5.90) m/uL Hgb 7.8 L (13.0-17.5) gm/dL Hct 26.0 L (39.0-53.0) % MCH 24.6 L (25.0-35.0) pg MCHC 29.9 L (31.0-37.0) g/dL RDW 19.7 H (11.5-15.5) % Plt Count 94 L (150-450) k/uL Lymphocytes # 0.9 L (1.0-4.8) k/uL Sodium 135 L (137-145) mmol/L Potassium 3.4 L (3.5-5.1) mmol/L Carbon Dioxide 31 H (22-30) mmol/L BUN 39 H (9-20) mg/dL Creatinine 1.78 H (0.66-1.25) mg/dL Glucose 115 H (74-99) mg/dL Calcium 7.8 L (8.4-10.2) mg/dL Total Protein 6.1 L (6.3-8.2) g/dL Albumin 2.6 L (3.5-5.0) g/dL
[2025-01-11] MEDS: SODIUM CHLORIDE 0.9% 250 ML IV ONE ×2 (17:38→17:40)
--- NOTE | 2025-01-11 20:30 | PN ---
PROGRESS NOTE SUBJECTIVE: Indio is an 84-year-old gentleman who is admitted to hospital with GI bleed, underwent EGD and colonoscopy. Cardiology had been consulted because of atrial and ventricular ectopy. He has known CAD and prior echocardiogram revealed an ejection fraction of 40%. At the time of my evaluation, the patient is in atrial fibrillation with controlled ventricular rate. OBJECTIVE: VITAL SIGNS: Heart rate is 100 beats per minute, blood pressure is 97/67, respiratory rate is 20, O2 saturation is 100% on 2 L. CHEST: Reveals diminished air entry at the bases. HEART: Reveals first and second heart sounds, irregular rhythm. ABDOMEN: Soft. EXTREMITIES: Reveals mild edema. LABORATORY DATA: Labs show a hemoglobin of 7.8, platelet count is 94, potassium is 3.5, BUN is 39, creatinine is 1.7. ASSESSMENT AND PLAN: Persistent atrial fibrillation. The patient is currently on amiodarone 400 p.o. b.i.d. He is not a candidate for anticoagulation at this time given the GI bleed. MMANAMIKA / IJN: [id number] /
[2025-01-11] MEDS: SODIUM CHLORIDE 0.9% 1,000 ML IV ONE (22:09)
[2025-01-12 05:54] LABS: Anisocytosis Moderate; Basophils % (A) 0 %; Eosinophils # (A) 0.1 k/uL (0-0.7); Eosinophils % (A) 1 %; HGB 8.1 gm/dL (13.0-17.5); Hypochromasia Marked; Lymphocytes # (A) 1.1 k/uL (1.0-4.8); Lymphocytes % (A) 15 %; MCH 24.9 pg (25.0-35.0); MCHC 29.8 g/dL (31.0-37.0); MCV 83.5 fL (80.0-100.0); Mean Platelet Volume 8.3; Microcytosis Slight; Monocytes # (A) 0.6 k/uL (0-1.0); Monocytes % (A) 8 %; Neutrophils # (A) 5.8 k/uL (1.3-7.7); Neutrophils % (A) 74 %; Poikilocytosis Slight; RBC 3.24 m/uL (4.30-5.90); RDW 20.3 % (11.5-15.5); WBC 7.8 k/uL (3.8-10.6)
[2025-01-12 05:58] LABS: Platelet Count 89 k/uL (150-450)
[2025-01-12 06:10] LABS: African American GFR (CKD) 40 (>60 ml/min/1.73 sqM); Anion Gap 5 mmol/L; Blood Urea Nitrogen 35 mg/dL (9-20); Carbon Dioxide 30 mmol/L (22-30); Chloride 99 mmol/L (98-107); Glucose 116 mg/dL (74-99); Magnesium 1.7 mg/dL (1.6-2.3); Non-African American GFR(CKD) 35 (>60 ml/min/1.73 sqM); Sodium 134 mmol/L (137-145)
--- NOTE | 2025-01-12 08:21 | XR ---
EXAMINATION TYPE: XR chest 1V portable DATE OF EXAM: 01/12/2025 5:47 AM COMPARISON: Chest radiograph from one day prior. CLINICAL INDICATION: Male, 84 years old with history of CHF; [facility] TECHNIQUE: XR chest 1V portable Frontal view of the chest. FINDINGS: Lungs/Pleura: There is no evidence of pleural effusion, focal consolidation, or pneumothorax. Pulmonary vascularity: Pulmonary vascular congestion. Heart/mediastinum: Cardiomediastinal silhouette is enlarged and stable. Atherosclerotic calcificatio ns are seen in the aorta. Musculoskeletal: No acute osseous pathology. IMPRESSION: Similar, Cardiomegaly, pulmonary vascular congestion and bilateral pleural effusions. Correlate with BNP for congestive heart failure. [facility], , 01/12/2025 8:18 AM
[2025-01-12 09:59] VITALS: BMI 33.7
--- NOTE | 2025-01-12 10:41 | PN ---
PROGRESS NOTE SUBJECTIVE: Indio is an 84-year-old gentleman, who is admitted to hospital with GI bleed and Cardiology has been consulted because of atrial and ventricular ectopy. He had known CAD with an EF of 40%. This morning, the patient remains stable hemodynamically. OBJECTIVE: VITAL SIGNS: Heart rate is around 100 beats per minute, blood pressure is 96/68, respiratory rate is 18, O2 saturation of 97% on 4 L. CHEST: Reveals diminished air entry bilaterally. HEART: Reveals first and second heart sounds, irregular rhythm. EXTREMITIES: Reveals bilateral 1+ pitting edema. MEDICATIONS: Include, 1. Toprol. 2. Lasix. 3. IV amiodarone. 4. Nebulizers. 5. Protonix. ASSESSMENT AND PLAN: Persistent atrial fibrillation. I will continue him on his current medications. MMODL / IJN: [id number] /
[2025-01-12] MEDS: METOPROLOL SUCCINATE (ER) 25 MG TAB.ER.24H PO SCH (10:56)
--- NOTE | 2025-01-12 11:08 | P.PN ---
Subjective Patient is seen in follow-up for acute kidney injury on chronic kidney disease. Renal function stable. Denies chest pain or shortness of breath. No active bleeding. Hemoglobin stable. Received fluid bolus overnight due to low blood pressure. Vital signs are stable. General: No acute distress. HEENT: Head exam is unremarkable. On nasal cannula. LUNGS: No audible rhonchi or wheezes. HEART: Rate and Rhythm are regular. ABDOMEN: Nontender. EXTREMITITES: No edema. Objective - Vital Signs Vital signs: Vital Signs Temp 98 F 01/12/25 08:00 Pulse 87 01/12/25 08:00 Resp 30 H 01/12/25 08:00 BP 96/68 01/12/25 08:00 Pulse Ox 97 01/12/25 08:00 FiO2 40 01/12/25 07:56 Intake & Output 01/11/25 01/12/25 01/12/25 18:59 06:59 18:59 Intake Total 450 520 Output Total 1350 800 Balance -900 -280 Weight 113 kg 113 kg Intake: IV 100 Sodium Ferric Gluconat- 100 Sucrose 125 mg In Sodium Chloride 0.9% 100 ml @ 100 mls/hr IVPB DAILY [facility] Rx#:[id number] Oral 350 300 Other 220 Output: Urine 1350 800 Uretheral (Dykes) 1250 300 Other: Voiding Method Indwelling Catheter Indwelling Catheter Indwelling Catheter # Bowel Movements 0 - Labs CBC & Chem 7: 01/12/25 05:22 01/12/25 05:22 Labs: Abnormal Lab Results - Last 24 Hours (Table) 01/11/25 01/12/25 01/12/25 Range/Units 14:04 05:22 05:22 RBC 3.24 L (4.30-5.90) m/uL Hgb 8.1 L (13.0-17.5) gm/dL Hct 27.0 L (39.0-53.0) % MCH 24.9 L (25.0-35.0) pg MCHC 29.8 L (31.0-37.0) g/dL RDW 20.3 H (11.5-15.5) % Plt Count 89 L (150-450) k/uL Sodium 134 L (137-145) mmol/L Potassium 3.4 L (3.5-5.1) mmol/L BUN 35 H (9-20) mg/dL Creatinine 1.78 H (0.66-1.25) mg/dL Glucose 116 H (74-99) mg/dL Calcium 8.0 L (8.4-10.2) mg/dL Assessment and Plan Plan: Assessment: 1. Acute kidney injury secondary to ATN. Creatinine peaked at 2.18 this admission and is stable at 1.78 today. No hydronephrosis noted on CT. 2. Chronic kidney disease stage IIIb with baseline creatinine near 1.5 secondary to nephrosclerosis. 3. A-fib with RVR now on oral meds. 4. Acute GI bleed status post blood transfusions this admission. Component of chronic kidney disease. Colonoscopy showed hemorrhoids and diverticulosis with no active bleeding. On Aranesp. 5. Volume overload. Improved with diuresis. 6. Acute on chronic systolic CHF ejection fraction of 15 to 20% with moderate to severe pulmonary hypertension. 7. Hypokalemia from diuresis. Replaced. Better. Plan: Transition to oral Lasix 40 mg twice daily. Will benefit from SGLT2 inhibitor. UA from this admission suggestive of UTI. Avoid nephrotoxins. Continue to monitor renal function and urine output. Add oral magnesium oxide.
[2025-01-12] MEDS: MAGNESIUM OXIDE 400 MG TAB PO SCH (12:23)
--- NOTE | 2025-01-12 15:22 | P.PN ---
Subjective Progress Note Date: 01/12/25 On 01/11/2025, the patient is being seen for a follow-up. The patient this morning is calm and comfortable. Slightly bronchospastic and wheezy on examination. Nevertheless, he denies having any significant shortness of breath and the patient remains on 2 L of oxygen by nasal cannula. The patient is post acute GI bleeding with secondary anemia. The patient underwent a colonoscopy on 01/07/2025 and the patient was found to have a normal appearing colon from rectum to cecum. No evidence of any colitis or malignancy. No evidence of any active bleeding. There was scattered sigmoid diverticulosis and grade 2 hemorrhoids. During the course of this hospitalization, the patient received a total of 4 units of packed RBC, 2 units of fresh frozen plasma and 1 unit of platelet. The patient is currently on IV hydration. Hemoglobin is at 7.8. On a separate note, the patient is in atrial fibrillation. He remains on amiodarone at 0.5 mg/min. Rate is under better control for now. His echocardiogram done on 01/07/2025 showed evidence of severe LV dysfunction with an ejection fraction of 15 to 20% along with low-grade aortic stenosis without any regurgitation, moderate to severe pulmonary pretension with estimated right ventricular systolic pressure of 54. The patient remains on IV Lasix 40 mg every 12 hours. Fluid balance is negative over the past 24 hours and this is in the order of - 2.6 L. Chest x-ray from today is still showing pulm vascular congestion and cardiomegaly and small bilateral pleural effusions. On today's evaluation of 01/12/2025, the patient is stable on 2 L of oxygen by nasal cannula. No reported GI bleeding. Hemoglobin stable at 8.1. Platelet count is at 89. BUN 35 with a creatinine 1.7. Sodium is at 134 with a potassium level is at 4.0. The patient continues to diurese with IV Lasix. The patient is receiving Lasix 40 mg IV every 12 hours. Overall fluid balance has been -2.6 L over the past 24 hours and the patient is headed towards another 1.1 L negative fluid balance for today. The follow-up chest x-ray from today shows improvement in the pulm vascular congestion. There is still persistent pulm vessel congestion bilateral pleural effusion along with cardiomegaly. The patient is awake and alert. Denies having any specific complaints. Denies having any chest pain. No other significant events overnight. He is known to have systolic heart failure with severe LV dysfunction ejection fraction of 15 to 20%. He also has a low-grade aortic stenosis without regurgitation and moderate to severe pulm hypertension with a PA pressure of 54. Objective - Vital Signs Vital signs: Vital Signs Temp 98 F 01/12/25 08:00 Pulse 87 01/12/25 08:00 Resp 30 H 01/12/25 08:00 BP 96/68 01/12/25 08:00 Pulse Ox 97 01/12/25 08:00 FiO2 40 01/12/25 07:56 Intake & Output 01/11/25 01/12/25 01/12/25 18:59 06:59 18:59 Intake Total 450 520 Output Total 1350 800 Balance -900 -280 Weight 113 kg Intake: IV 100 Sodium Ferric Gluconat- 100 Sucrose 125 mg In Sodium Chloride 0.9% 100 ml @ 100 mls/hr IVPB DAILY [facility] Rx#:[id number] Oral 350 300 Other 220 Output: Urine 1350 800 Uretheral (Dykes) 1250 300 Other: Voiding Method Indwelling Catheter Indwelling Catheter # Bowel Movements 0 - Exam Mild respiratory distress, oriented 3. The patient is currently 2 L of oxygen by nasal cannula. No signs of any significant respiratory distress HEENT examination is grossly unremarkable. Mucous membranes are moist. No oral lesions. Neck supple. Full range of motion. No adenopathy thyromegaly or neck vein distention. Cardiovascular examination reveals irregular consistent with atrial fibrillation. No S3 or S4. No discernible murmur noted. Lungs reveal scattered rhonchi and crackles. Breath sounds equal. No sig nificant wheezing on today's evaluation. Abdomen soft bowel sounds are heard. No masses or tenderness. Dried blood is noted in the area of the groin, over his lower abdomen, scrotum, and penis. Extremities are intact. No cyanosis clubbing or edema. Skin is without rash or lesion. Neurologic examination is brief but nonfocal. - Labs CBC & Chem 7: 01/12/25 05:22 01/12/25 05:22 Labs: Abnormal Lab Results - Last 24 Hours (Table) 01/11/25 01/12/25 01/12/25 Range/Units 14:04 05:22 05:22 RBC 3.24 L (4.30-5.90) m/uL Hgb 8.1 L (13.0-17.5) gm/dL Hct 27.0 L (39.0-53.0) % MCH 24.9 L (25.0-35.0) pg MCHC 29.8 L (31.0-37.0) g/dL RDW 20.3 H (11.5-15.5) % Plt Count 89 L (150-450) k/uL Sodium 134 L (137-145) mmol/L Potassium 3.4 L (3.5-5.1) mmol/L BUN 35 H (9-20) mg/dL Creatinine 1.78 H (0.66-1.25) mg/dL Glucose 116 H (74-99) mg/dL Calcium 8.0 L (8.4-10.2) mg/dL Assessment and Plan Plan: Acute lower GI bleed, with severe anemia. Colonoscopy was done on 01/07/2025. No evidence of any acute bleeding. No evidence of any malignancy. Scattered sigmoid diverticulosis and grade 2 internal hemorrhoids. The patient's hemoglobin is stable for now. No evidence of any active GI bleeding. Hemoglobin is at 8.1. The patient is tolerating diet at this point. Hemodynamically stable. Acute anemia, secondary blood loss and the patient was transfused a total of 4 units of packed RBC during this current hospitalization Acute hypoxic respiratory failure currently on 2 L of oxygen by nasal cannula, chest x-ray continues to show pulm vessel congestion and edema in addition to small bilateral pleural effusion and the patient currently on IV Lasix with a negative fluid balance. Chest x-ray still showing pulm vascular congestion and cardiomegaly Acute non-ST segment elevation myocardial infarction Versus demand type of myocardial ischemia. Chronic systolic heart failure with an ejection fraction of 15 to 20% with secondary pulm hypertension, severe with a PA pressure of 56. Atrial fibrillation, controlled rate History of asthma. History of CVA. History of hyperlipidemia. History of hypertension. History of melanoma, with possible metastatic melanoma. History of osteoarthritis. Plan: Keep the patient oxygen at 2 L nasal cannula Continue Lasix and switch the patient to oral Lasix Close balance is negative Continue amiodarone 400 mg p.o. twice a day Start metoprolol 12.5 mg p.o. twice a day IV iron Monitor hemoglobin and Bronchodilators with DuoNeb just 4 times a day [employer] Analyst on the case regarding his systolic heart failure and chronic atrial fibrillation No anticoagulants for now Will continue to follow. Evaluation was done and 31 minutes. Time with Patient: Greater than 30
[2025-01-12] MEDS: FUROSEMIDE 40 MG TAB PO SCH (21:20)
[2025-01-13] MEDS: IPRATROPIUM-ALBUTEROL 3 ML NEB INHALATION PRN (01:28)
[2025-01-13] MEDS: guaiFENesin 600 MG TABLET.ER PO PRN (01:32)
[2025-01-13 05:41] LABS: Anisocytosis Moderate; Basophils % (A) 0 %; Eosinophils # (A) 0.1 k/uL (0-0.7); Eosinophils % (A) 1 %; Hypochromasia Marked; Lymphocytes # (A) 1.1 k/uL (1.0-4.8); Lymphocytes % (A) 14 %; MCH 24.2 pg (25.0-35.0); MCHC 28.4 g/dL (31.0-37.0); MCV 85.2 fL (80.0-100.0); Mean Platelet Volume 8.9; Monocytes # (A) 0.6 k/uL (0-1.0); Monocytes % (A) 7 %; Neutrophils % (A) 76 %; Platelet Count 104 k/uL (150-450); Poikilocytosis Slight; RBC 3.29 m/uL (4.30-5.90); RDW 21.2 % (11.5-15.5); WBC 7.9 k/uL (3.8-10.6)
[2025-01-13 05:48] LABS: African American GFR (CKD) 45 (>60 ml/min/1.73 sqM); Anion Gap 4 mmol/L; Blood Urea Nitrogen 40 mg/dL (9-20); Calcium 8.3 mg/dL (8.4-10.2); Carbon Dioxide 31 mmol/L (22-30); Chloride 98 mmol/L (98-107); Glucose 114 mg/dL (74-99); Magnesium 1.7 mg/dL (1.6-2.3); Non-African American GFR(CKD) 39 (>60 ml/min/1.73 sqM); Potassium 3.8 mmol/L (3.5-5.1); Sodium 133 mmol/L (137-145)
--- NOTE | 2025-01-13 07:55 | XR ---
EXAMINATION TYPE: XR chest 1V portable DATE OF EXAM: 01/13/2025 5:06 AM COMPARISON: Chest radiograph from one day prior. CLINICAL INDICATION: Male, 84 years old with history of CHF; [facility] TECHNIQUE: XR chest 1V portable Frontal view of the chest. FINDINGS: Lungs/Pleura: No evidence of focal consolidation or pneumothorax. Blunting of the costophrenic angles is present. Pulmonary vascularity: Pulmonary vascular congestion. Heart/mediastinum: Cardiomediastinal silhouette is enlarged and stable. Musculoskeletal: No acute osseous pathology. Other findings: None Lines/Tubes: IMPRESSION: Cardiomegaly, pulmonary vascular congestion and bilateral pleural effusions. Correlate with BNP for c ongestive heart failure. [facility], , 01/13/2025 7:53 AM
[2025-01-13] MEDS: FUROSEMIDE 10 MG/ML 4 ML VIAL IV STA (09:15)
--- NOTE | 2025-01-13 09:56 | P.PN ---
Subjective Patient is seen in follow-up for acute kidney injury on chronic kidney disease. Renal function stable. Denies chest pain or shortness of breath. No active bleeding. Hemoglobin stable. Lasix held last night due to low blood pressures. Vital signs are stable. General: No acute distress. HEENT: Head exam is unremarkable. On nasal cannula. LUNGS: Scattered rhonchi. HEART: Rate and Rhythm are regular. ABDOMEN: Nontender. EXTREMITITES: No edema. Objective - Vital Signs Vital signs: Vital Signs Temp 97.9 F 01/13/25 06:00 Pulse 96 01/13/25 08:01 Resp 22 01/13/25 08:00 BP 107/72 01/13/25 08:00 Pulse Ox 97 01/13/25 08:00 FiO2 40 01/12/25 18:27 Intake & Output 01/12/25 01/13/25 01/13/25 18:59 06:59 18:59 Intake Total 1060 Output Total 1400 775 Balance -1400 285 Weight 113 kg 110.4 kg Intake: Oral 1060 Output: Urine 1400 775 Other: Voiding Method Indwelling Catheter Indwelling Catheter # Voids 1 - Labs CBC & Chem 7: 01/13/25 05:13 01/13/25 05:13 Labs: Abnormal Lab Results - Last 24 Hours (Table) 01/13/25 01/13/25 Range/Units 05:13 05:13 RBC 3.29 L (4.30-5.90) m/uL Hgb 8.0 L (13.0-17.5) gm/dL Hct 28.0 L (39.0-53.0) % MCH 24.2 L (25.0-35.0) pg MCHC 28.4 L (31.0-37.0) g/dL RDW 21.2 H (11.5-15.5) % Plt Count 104 L (150-450) k/uL Sodium 133 L (137-145) mmol/L Carbon Dioxide 31 H (22-30) mmol/L BUN 40 H (9-20) mg/dL Creatinine 1.62 H (0.66-1.25) mg/dL Glucose 114 H (74-99) mg/dL Calcium 8.3 L (8.4-10.2) mg/dL Assessment and Plan Plan: Assessment: 1. Acute kidney injury secondary to ATN. Creatinine peaked at 2.18 this admission and is stable at 1.62 today. No hydronephrosis noted on CT. 2. Chronic kidney disease stage IIIb with baseline creatinine near 1.5 secondar y to nephrosclerosis. 3. A-fib with RVR now on oral meds. 4. Acute GI bleed status post blood transfusions this admission. Component of chronic kidney disease. Colonoscopy showed hemorrhoids and diverticulosis with no active bleeding. On Aranesp. 5. Volume overload. 6. Acute on chronic systolic CHF ejection fraction of 15 to 20% with moderate to severe pulmonary hypertension. 7. Hypokalemia from diuresis. 8. Hypomagnesemia from diuresis. On oral magnesium oxide. Stable. Plan: Maintain Lasix. Will give 40 mg IV Lasix this morning instead of oral. Will benefit from SGLT2 inhibitor. UA from this admission suggestive of UTI. Avoid nephrotoxins. Continue to monitor renal function and urine output. Replace potassium. Add midodrine.
--- NOTE | 2025-01-13 12:23 | PN ---
PROGRESS NOTE SUBJECTIVE: Indio is an 84-year-old gentleman, who is admitted to the hospital with GI bleed and has atrial fibrillation. This morning, his heart rate is better controlled on amiodarone 400 b.i.d. along with Toprol-XL 12.5 b.i.d. He is also on midodrine. PHYSICAL EXAMINATION: VITAL SIGNS: Heart rate is 96 beats per minute, blood pressure is 107/73, respiratory rate is 18. CHEST: Reveals good air entry bilaterally. HEART: Reveals first and second heart sounds, irregular rhythm. ABDOMEN: Soft. EXTREMITIES: Exam of extremities did not reveal any edema. Peripheral pulses are felt. ASSESSMENT: 1. Atrial fibrillation with controlled ventricular rate. 2. Gastrointestinal bleed. PLAN: The patient is doing well. We will continue current medications. MMLIZL / REEDN: [id number] /
[2025-01-13] MEDS: POTASSIUM CHLORIDE ER 20 MEQ TAB.ER PO STA (12:51)
[2025-01-13] MEDS: MIDODRINE 5 MG TAB PO SCH (12:51)
--- NOTE | 2025-01-13 13:01 | P.PN ---
Subjective Progress Note Date: 01/13/25 CHIEF COMPLAINT: GI bleed HISTORY OF PRESENT ILLNESS: Patient is currently in the ICU as overflow. He de nies any abdominal pain. He has had no further bloody stools. Bowel movements have been brown in color. Mildly tachycardic. Heart rate 106. Hemoglobin 8.0 PHYSICAL EXAM: VITAL SIGNS: Reviewed GENERAL: Well-developed in no acute distress. HEENT: No sclera icterus. Extraocular movements grossly intact. Moist buccal mucosa. Head is atraumatic, normocephalic. Hears conversational speech. No nasal drainage. NECK: Supple without lymphadenopathy. Patient has a skin lesion growth on the left side of his neck and left earlobe CHEST: No use of assessory muscles CARDIOVASCULAR: Palpable 2+ radial pulses. ABDOMEN: Soft. Nondistended. Nontender. MUSCULOSKELETAL: No clubbing or cyanosis. NEUROLOGIC: No focal or lateralizing signs. Cranial nerves II through XII grossly intact. PSYCH: Appropriate affect. Alert and oriented to person, place and time. SKIN: Pale ASSESSMENT: 1. Acute GI bleed likely due to a diverticular bleed 2. Acute blood loss anemia secondary to GI bleed 3. Status post EGD revealing duodenitis and gastritis 4. Acute on chronic renal failure 5. History of coronary artery disease and [place] on Plavix at home 6. History of melanoma 7. Fluid overload PLAN: -Continue to monitor for any signs or symptoms of bleeding. Hemoglobin remained stable -No surgical intervention planned -Continue to hold Plavix -Continue regular diet Physician Water Safety Instructor note has been reviewed by physician. Signing provider agrees with the documented findings, assessment, and plan of care. Objective - Vital Signs Vital signs: Vital Signs Temp 97.9 F 01/13/25 06:00 Pulse 106 H 01/13/25 12:22 Resp 22 01/13/25 08:00 BP 107/72 01/13/25 08:00 Pulse Ox 97 01/13/25 08:00 FiO2 40 01/12/25 18:27 Intake & Output 01/12/25 01/13/25 01/13/25 18:59 06:59 18:59 Intake Total 1060 Output Total 1400 775 Balance -1400 285 Weight 113 kg 110.4 kg Intake: Oral 1060 Output: Urine 1400 775 Other: Voiding Method Indwelling Catheter Indwelling Catheter # Voids 1 - Labs CBC & Chem 7: 01/13/25 05:13 01/13/25 05:13 Labs: Abnormal Lab Results - Last 24 Hours (Table) 01/13/25 01/13/25 Range/Units 05:13 05:13 RBC 3.29 L (4.30-5.90) m/uL Hgb 8.0 L (13.0-17.5) gm/dL Hct 28.0 L (39.0-53.0) % MCH 24.2 L (25.0-35.0) pg MCHC 28.4 L (31.0-37.0) g/dL RDW 21.2 H (11.5-15.5) % Plt Count 104 L (150-450) k/uL Sodium 133 L (137-145) mmol/L Carbon Dioxide 31 H (22-30) mmol/L BUN 40 H (9-20) mg/dL Creatinine 1.62 H (0.66-1.25) mg/dL Glucose 114 H (74-99) mg/dL Calcium 8.3 L (8.4-10.2) mg/dL
--- NOTE | 2025-01-13 15:06 | P.PN ---
Subjective Progress Note Date: 01/12/25 89-year-old male patient with past medical history significant for coronary artery disease status post stenting 2021, ischemic cardiomyopathy with a EF 40 to 45%, history of CVA with left-sided residual deficits, hypertension, hyperlipidemia, hard of hearing, history of skin cancer who presented to ER with a complaint of blood in the stools. Patient was brought to the ER by EMS, was noted to have large bloody bowel movement, was complaining of dizziness, also complained of nausea and abdominal discomfort. Patient was afebrile on presentation, was tachycardic and hypotensive, initially was on on room air, later on required supplemental oxygen 2 L after IV fluids. WBCs 12.5, hemoglobin 5.7, came up to 7.4 after 3 units. Platelet 227. INR 1.3. Sodium 139, potassium 5.4, chloride 107, CO2 12, BUN 51, creatinine 2.03, GFR 30. Liver profile unremarkable. Chest x-ray showed small left pleural effusion with left basilar opacities, diffuse interstitial prominence. 01/07--patient was seen and examined today. Patient is afebrile, heart rate 91, respiratory rate 27, blood pressure 99/56, saturating 99%, currently on BiPAP with 30% FiO2. WBCs 12.1, hemoglobin 8.3, platelet 158. Sodium 143, potassium 4.9, BUN 59, creatinine 2.17. Troponin was 16.5, went up to 12.2. proBNP 11,600. Patient underwent colonoscopy today which showed normal-appearing colon from rectum to cecum with no evidence of colitis or colorectal neoplasia, no active GI bleed, scattered sigmoid diverticulosis. Grade 2 hemorrhoids. 01/08--patient initially presented to ED with GI bleed, transferred to ICU for GI bleed, hemorrhagic shock, requiring Levophed, underwent EGD and colonoscopy, showed diverticular disease and hemorrhoids, required 4 unit of packed RBCs, 2 units of fresh frozen plasma, 1 unit of platelets, DDAVP, no further bleeding at this point, hemoglobin is now stable. Remains on norepinephrine. On 4 L oxygen. Cardiology following for NSTEMI. Patient is afebrile, heart rate 92, respiratory rate 27, saturating 100% on 3 L. Blood pressure is soft 93/56. Patient currently on Levophed. Chest x-ray showed pleural effusion, CHF. Echocardiogram showed severe LV dysfunction with EF less than 20%, RV enlargement, moderate to severe pulmonary hypertension, reduced aortic valve excursion/opening. WBCs 8.5, hemoglobin 8.4, platelet 120. Sodium 139, potassium 4.2, chloride 102, CO2 24, BUN 60, creatinine 2.15. UA showed large leukocyte Estrace, RBCs WBCs. Patient is currently on Zosyn. ICU, nephrology, cardiology GI has been consulted. 01/09. Patient seen and examined. Currently states he is doing okay. Patient currently on dobutamine drip. Hemoglobin this morning is 7.3. 01/10. Patient seen and examined. Sitting upright in the bed. Discussed with him regarding goals of care, he wants her daughter to make a decision regarding CODE STATUS. Denies any chest pain. Gets short of breath on exertion /. Patient seen and examined. Blood work done this morning showedW6.3, hemoglobin 7.8, platelet count 94, sodium 135, Potassium 3.5, BUN 39, creatinine 1.78, glucose 115.Vital signs temperature afebrile, heart rate 91, respiration 22, blood pressure 9761, currently on 2 L of oxygen . Patient seen and examined. Blood work done showedWBC 9.8, hemoglobin 8.1, platelet count 89, sodium 135, potassium 4, BUN 35, creatinine 1.78. Patient continues to be on 2 L of oxygen. REVIEW OF SYSTEMS: CONSTITUTIONAL: No fever, no malaise,. CARDIOVASCULAR: No chest pain, no palpitations, no syncope. PULMONARY: No shortness of breath, no cough, GASTROINTESTINAL: No diarrhea, no nausea, no vomiting, no abdominal pain. NEUROLOGICAL: No headaches, no weakness, PHYSICAL EXAMINATION: GENERAL: The patient is alert and oriented x3, ill looking HEENT: Pupils are round and equally reacting to light. EOMI. No scleral icterus. No conjunctival pallor. Normocephalic, atraumatic. No pharyngeal erythema. No thyromegaly. CARDIOVASCULAR: S1 and S2 present. No murmurs, rubs, or gallops. PULMONARY: Diminished breath sounds at the bases bilaterally no wheezing or crackles. ABDOMEN: Soft, nontender, nondistended, normoactive bowel sounds. No palpable organomegaly. MUSCULOSKELETAL: No joint swelling or deformity. EXTREMITIES: No cyanosis, clubbing, or pedal edema. NEUROLOGICAL: Gross neurological examination did not reveal any focal deficits. 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 Hypertension Hyperlipidemia Hard of hearing History of CVA with left-sided weakness Acute hypoxic respiratory failure Fluid overload: Skin cancer: History of melanoma Osteoarthritis History of asthma Monitor vital signs Monitor CBC Monitor CMP Continue telemetry monitoring Encourage use of incentive spirometer status post EGD showed no active GI bleed. Colonoscopy 01/07 negative for any active bleed, per GI likely to diverticular bleed which is stopped now. CT abdomen pelvismoderate bilateral pleural effusion, dependent airspace consolidation, abdominal ascites, dilated small bowel measuring up to 2.7 cm, atrophic kidneys, diverticulosis. echo showed EF less than 20%, decreased opening/excursion of aortic valve, moderate to severe pulmonary hypertension. Continue amiodarone, switch from IV to oral Continue IV Protonix Hold aspirin and Plavix Hold antihypertensives Strict I's and O's, daily weights, continue IV Lasix 40 mg once followed by p.o. Lasix Nephrology following Cardiology following Pulmonology following Labs and medication were reviewed.. Continue same treatment. Continue with symptomatic treatment. Resume home medication. Monitor labs and vitals. DVT and GI prophylaxis. Further recommendations as per clinical course of the patient Dictation was produced using [employer] dictation software. please excuse any grammatical, word or spelling errors. Objective - Vital Signs Vital signs: Vital Signs Temp 97.9 F 01/13/25 06:00 Pulse 106 H 01/13/25 12:22 Resp 24 01/13/25 12:00 BP 88/63 01/13/25 12:00 Pulse Ox 98 01/13/25 12:00 FiO2 40 01/12/25 18:27 Intake & Output 01/12/25 01/13/25 01/13/25 18:59 06:59 18:59 Intake Total 1060 Output Total 1400 775 Balance -1400 285 Weight 113 kg 110.4 kg Intake: Oral 1060 Output: Urine 1400 775 Other: Voiding Method Indwelling Catheter Indwelling Catheter Indwelling Catheter # Voids 1 - Labs CBC & Chem 7: 01/13/25 05:13 01/13/25 05:13 Labs: Abnormal Lab Results - Last 24 Hours (Table) 01/13/25 01/13/25 Range/Units 05:13 05:13 RBC 3.29 L (4.30-5.90) m/uL Hgb 8.0 L (13.0-17.5) gm/dL Hct 28.0 L (39.0-53.0) % MCH 24.2 L (25.0-35.0) pg MCHC 28.4 L (31.0-37.0) g/dL RDW 21.2 H (11.5-15.5) % Plt Count 104 L (150-450) k/uL Sodium 133 L (137-145) mmol/L Carbon Dioxide 31 H (22-30) mmol/L BUN 40 H (9-20) mg/dL Creatinine 1.62 H (0.66-1.25) mg/dL Glucose 114 H (74-99) mg/dL Calcium 8.3 L (8.4-10.2) mg/dL
--- NOTE | 2025-01-13 16:14 | P.PN ---
Subjective Progress Note Date: 01/13/25 On 01/11/2025, the patient is being seen for a follow-up. The patient this morning is calm and comfortable. Slightly bronchospastic and wheezy on examination. Nevertheless, he denies having any significant shortness of breath and the patient remains on 2 L of oxygen by nasal cannula. The patient is post acute GI bleeding with secondary anemia. The patient underwent a colonoscopy on 01/07/2025 and the patient was found to have a normal appearing colon from rectum to cecum. No evidence of any colitis or malignancy. No evidence of any active bleeding. There was scattered sigmoid diverticulosis and grade 2 hemorrhoids. During the course of this hospitalization, the patient received a total of 4 units of packed RBC, 2 units of fresh frozen plasma and 1 unit of platelet. The patient is currently on IV hydration. Hemoglobin is at 7.8. On a separate note, the patient is in atrial fibrillation. He remains on amiodarone at 0.5 mg/min. Rate is under better control for now. His echocardiogram done on 01/07/2025 showed evidence of severe LV dysfunction with an ejection fraction of 15 to 20% along with low-grade aortic stenosis without any regurgitation, moderate to severe pulmonary pretension with estimated right ventricular systolic pressure of 54. The patient remains on IV Lasix 40 mg every 12 hours. Fluid balance is negative over the past 24 hours and this is in the order of - 2.6 L. Chest x-ray from today is still showing pulm vascular congestion and cardiomegaly and small bilateral pleural effusions. On today's evaluation of 01/12/2025, the patient is stable on 2 L of oxygen by nasal cannula. No reported GI bleeding. Hemoglobin stable at 8.1. Platelet count is at 89. BUN 35 with a creatinine 1.7. Sodium is at 134 with a potassium level is at 4.0. The patient continues to diurese with IV Lasix. The patient is receiving Lasix 40 mg IV every 12 hours. Overall fluid balance has been -2.6 L over the past 24 hours and the patient is headed towards another 1.1 L negative fluid balance for today. The follow-up chest x-ray from today shows improvement in the pulm vascular congestion. There is still persistent pulm vessel congestion bilateral pleural effusion along with cardiomegaly. The patient is awake and alert. Denies having any specific complaints. Denies having any chest pain. No other significant events overnight. He is known to have systolic heart failure with severe LV dysfunction ejection fraction of 15 to 20%. He also has a low-grade aortic stenosis without regurgitation and moderate to severe pulm hypertension with a PA pressure of 54. On today's evaluation of 01/13/2025, the patient is doing well and he has no specific complaints. He remains on 2 L of oxygen by nasal cannula. He remains in atrial fibrillation. He is receiving Lasix and he was given 40 mg of IV Lasix and additional dose in addition to his oral medication. His fluid balance is -1.1 L over the past 24 hours. Chest x-ray still showing findings consistent with CHF with pulm vascular congestion and cardiomegaly and blunting of the costophrenic angles indicative of an underlying pleural effusions bilaterally. The patient denies having any significant chest pain or shortness of breath no evidence of any GI bleeding. Hemoglobin remained stable at 8 with a white cell count of 7.9. Platelet count is 104. BUN is 40 with a creatinine of 1.6 and a sodium levels at 133. The patient is on metoprolol 12.5 mg p.o. twice daily and amiodarone 4 mg p.o. twice daily and midodrine was also added by nephrology. Being given Aranesp for chronic anemia. Objective - Vital Signs Vital signs: Vital Signs Temp 97.9 F 01/13/25 06:00 Pulse 88 01/13/25 15:50 Resp 24 01/13/25 12:00 BP 88/63 01/13/25 12:00 Pulse Ox 98 01/13/25 12:00 FiO2 40 01/12/25 18:27 Intake & Output 01/12/25 01/13/25 01/13/25 18:59 06:59 18:59 Intake Total 1060 Output Total 1400 775 Balance -1400 285 Weight 113 kg 110.4 kg Intake: Oral 1060 Output: Urine 1400 775 Other: Voiding Method Indwelling Catheter Indwelling Catheter Indwelling Catheter # Voids 1 - Exam Mild respiratory distress, oriented 3. The patient is currently 2 L of oxygen by nasal cannula. No signs of any significant respiratory distress HEENT examination is grossly unremarkable. Mucous membranes are moist. No oral lesions. Neck supple. Full range of motion. No adenopathy thyromegaly or neck vein distention. Cardiovascular examination reveals irregular consistent with atrial fibrillation. No S3 or S4. No discernible murmur noted. Lungs reveal scattered rhonchi and crackles. Breath sounds equal. No significant wheezing on today's evaluation. Abdomen soft bowel sounds are heard. No masses or tenderness. Dried blood is noted in the area of the groin, over his lower abdomen, scrotum, and penis. Extremities are intact. No cyanosis clubbing or edema. Skin is without rash or lesion. Neurologic examination is brief but nonfocal. - Labs CBC & Chem 7: 01/13/25 05:13 01/13/25 05:13 Labs: Abnormal Lab Results - Last 24 Hours (Table) 01/13/25 01/13/25 Range/Units 05:13 05:13 RBC 3.29 L (4.30-5.90) m/uL Hgb 8.0 L (13.0-17.5) gm/dL Hct 28.0 L (39.0-53.0) % MCH 24.2 L (25.0-35.0) pg MCHC 28.4 L (31.0-37.0) g/dL RDW 21.2 H (11.5-15.5) % Plt Count 104 L (150-450) k/uL Sodium 133 L (137-145) mmol/L Carbon Dioxide 31 H (22-30) mmol/L BUN 40 H (9-20) mg/dL Creatinine 1.62 H (0.66-1.25) mg/dL Glucose 114 H (74-99) mg/dL Calcium 8.3 L (8.4-10.2) mg/dL Assessment and Plan Plan: Acute lower GI bleed, with severe anemia. Colonoscopy was done on 01/07/2025. No evidence of any acute bleeding. No evidence of any malignancy. Scattered sigmoid diverticulosis and grade 2 internal hemorrhoids. The patient's hemo globin is stable for now. No evidence of any active GI bleeding. Hemoglobin is at 8. The patient is tolerating diet at this point. Hemodynamically stable. Acute anemia, secondary blood loss and the patient was transfused a total of 4 units of packed RBC during this current hospitalization Acute hypoxic respiratory failure currently on 2 L of oxygen by nasal cannula, chest x-ray continues to show pulm vessel congestion and edema in addition to small bilateral pleural effusion and the patient currently on IV Lasix with a negative fluid balance. Chest x-ray still showing pulm vascular congestion and cardiomegaly Acute non-ST segment elevation myocardial infarction Versus demand type of myocardial ischemia. Chronic systolic heart failure with an ejection fraction of 15 to 20% with se condary pulm hypertension, severe with a PA pressure of 56. Atrial fibrillation, controlled rate, currently on a combination of amiodarone and metoprolol History of asthma. History of CVA. History of hyperlipidemia. History of hypertension. History of melanoma, with possible metastatic melanoma. History of osteoarthritis. Plan: Keep the patient oxygen at 2 L nasal cannula Continue Lasix, additional dose of Lasix 40 mg IV was given Fluids balance is negative Continue amiodarone 400 mg p.o. twice a day Continue metoprolol 12.5 mg p.o. twice a day Midodrine was added for hypotension IV iron and the patient was given Aranesp Monitor hemoglobin Bronchodilators with DuoNeb just 4 times a day [employer] on the case regarding his systolic heart failure and chronic atrial fibrillation No anticoagulants for now Will continue to follow. Evaluation was done and 31 minutes. Time with Patient: Greater than 30
[2025-01-14] MEDS: MELATONIN 5 MG TABLET PO PRN (03:29)
--- NOTE | 2025-01-14 11:30 | P.PN ---
Subjective Patient is seen in follow-up for acute kidney injury on chronic kidney disease. Renal function stable as of yesterday. Does admit to dyspnea. On 2 L nasal cannula. No active bleeding. Hemoglobin stable. Vital signs are stable. General: No acute distress. HEENT: Head exam is unremarkable. On nasal cannula. LUNGS: Scattered rhonchi. HEART: Rate and Rhythm are regular. ABDOMEN: Nontender. EXTREMITITES: Trace edema. Objective - Vital Signs Vital signs: Vital Signs Temp 97.9 F 01/14/25 04:00 Pulse 78 01/14/25 10:09 Resp 18 01/14/25 04:00 BP 97/51 01/14/25 04:00 Pulse Ox 94 L 01/14/25 04:00 FiO2 40 01/12/25 18:27 Intake & Output 01/13/25 01/14/25 01/14/25 18:59 06:59 18:59 Output Total 1400 700 Balance -1400 -700 Weight 109.5 kg Output: Urine 1400 700 Other: Voiding Method Indwelling Catheter Indwelling Catheter - Labs CBC & Chem 7: 01/13/25 05:13 01/13/25 05:13 Assessment and Plan Plan: Assessment: 1. Acute kidney injury secondary to ATN. Creatinine peaked at 2.18 this admission and is stable at 1.62 yesterday. No hydronephrosis noted on CT. 2. Chronic kidney disease stage IIIb with baseline creatinine near 1.5 secondary to nephrosclerosis. 3. A-fib with RVR now on oral meds. 4. Acute GI bleed status post blood transfusions this admission. Component of chronic kidney disease. Colonoscopy showed hemorrhoids and diverticulosis with no active bleeding. On Aranesp. 5. Volume overload. 6. Acute on chronic systolic CHF ejection fraction of 15 to 20% with moderate to severe pulmonary hypertension. 7. Hypokalemia from diuresis. Replaced. 8. Hypomagnesemia from diuresis. On oral magnesium oxide. Stable. Plan: Maintain Lasix. Will benefit from SGLT2 inhibitor. UA from this admission suggestive of UTI. Avoid nephrotoxins. Continue to monitor renal function and urine output. Maintain midodrine. Hold for systolic blood pressure greater than 110. Repeat labs in the morning.
--- NOTE | 2025-01-14 13:14 | P.PN ---
Subjective Progress Note Date: 01/14/25 CHIEF COMPLAINT: GI bleed HISTORY OF PRESENT ILLNESS: Patient transferred to the cardiac floor yesterday. He denies any abdominal pain. He denies any blood in his stools. Hemoglobin 8.0 as of yesterday. Tolerating regular diet. He does report being short of breath. He is receiving Lasix. Patient also receiving Aranesp for his anemia PHYSICAL EXAM: VITAL SIGNS: Reviewed GENERAL: Well-developed in no acute distress. HEENT: No sclera icterus. Extraocular movements grossly intact. Moist buccal mucosa. Head is atraumatic, normocephalic. Hears conversational speech. No nasal drainage. NECK: Supple without lymphadenopathy. Patient has a skin lesion growth on the left side of his neck and left earlobe CHEST: Breathing labored CARDIOVASCULAR: Palpable 2+ radial pulses. ABDOMEN: Soft. Nondistended. Nontender. MUSCULOSKELETAL: No clubbing or cyanosis. NEUROLOGIC: No focal or lateralizing signs. Cranial nerves II through XII grossly intact. PSYCH: Appropriate affect. Alert and oriented to person, place and time. SKIN: Pale ASSESSMENT: 1. Acute GI bleed likely due to a diverticular bleed 2. Acute blood loss anemia secondary to GI bleed 3. Status post EGD revealing duodenitis and gastritis 4. Acute on chronic renal failure 5. History of coronary artery disease and SD on Plavix at home 6. History of melanoma 7. Fluid overload 8. Atrial fibrillation PLAN: -Continue to monitor for any signs or symptoms of bleeding. Hemoglobin remained stable -No surgical intervention planned -Continue to hold anticoagulation -Continue regular diet Physician [address] note has been reviewed by physician. Signing provider agrees with the documented findings, assessment, and plan of care. Objective - Vital Signs Vital signs: Vital Signs Temp 97.0 F L 01/14/25 08:00 Pulse 70 01/14/25 12:57 Resp 18 01/14/25 08:00 BP 106/64 01/14/25 08:00 Pulse Ox 94 L 01/14/25 08:00 FiO2 40 01/12/25 18:27 Intake & Output 01/13/25 01/14/25 01/14/25 18:59 06:59 18:59 Output Total 1400 700 Balance -1400 -700 Weight 109.5 kg Output: Urine 1400 700 Other: Voiding Method Indwelling Catheter Indwelling Catheter Indwelling Catheter - Labs CBC & Chem 7: 03/12/25 05:13 01/13/25 05:13
--- NOTE | 2025-01-14 13:57 | P.PN ---
Subjective Progress Note Date: 01/14/25 89-year-old male patient with past medical history significant for coronary artery disease status post stenting 2021, ischemic cardiomyopathy with a EF 40 to 45%, history of CVA with left-sided residual deficits, hypertension, hyperlipidemia, hard of hearing, history of skin cancer who presented to ER with a complaint of blood in the stools. Patient was brought to the ER by EMS, was noted to have large bloody bowel movement, was complaining of dizziness, also complained of nausea and abdominal discomfort. Patient was afebrile on presentation, was tachycardic and hypotensive, initially was on on room air, later on required supplemental oxygen 2 L after IV fluids. WBCs 12.5, hemoglobin 5.7, came up to 7.4 after 3 units. Platelet 227. INR 1.3. Sodium 139, potassium 5.4, chloride 107, CO2 12, BUN 51, creatinine 2.03, GFR 30. Liver profile unremarkable. Chest x-ray showed small left pleural effusion with left basilar opacities, diffuse interstitial prominence. 01/07--patient was seen and examined today. Patient is afebrile, heart rate 91, respiratory rate 27, blood pressure 99/56, saturating 99%, currently on BiPAP with 30% FiO2. WBCs 12.1, hemoglobin 8.3, platelet 158. Sodium 143, potassium 4.9, BUN 59, creatinine 2.17. Troponin was 16.5, went up to 12.2. proBNP 11,600. Patient underwent colonoscopy today which showed normal-appearing colon from rectum to cecum with no evidence of colitis or colorectal neoplasia, no active GI bleed, scattered sigmoid diverticulosis. Grade 2 hemorrhoids. 01/08--patient initially presented to ED with GI bleed, transferred to ICU for GI bleed, hemorrhagic shock, requiring Levophed, underwent EGD and colonoscopy, showed diverticular disease and hemorrhoids, required 4 unit of packed RBCs, 2 units of fresh frozen plasma, 1 unit of platelets, DDAVP, no further bleeding at this point, hemoglobin is now stable. Remains on norepinephrine. On 4 L oxygen. Cardiology following for NSTEMI. Patient is afebrile, heart rate 92, respiratory rate 27, saturating 100% on 3 L. Blood pressure is soft 93/56. Patient currently on Levophed. Chest x-ray showed pleural effusion, CHF. Echocardiogram showed severe LV dysfunction with EF less than 20%, RV enlargement, moderate to severe pulmonary hypertension, reduced aortic valve excursion/opening. WBCs 8.5, hemoglobin 8.4, platelet 120. Sodium 139, potassium 4.2, chloride 102, CO2 24, BUN 60, creatinine 2.15. UA showed large leukocyte Estrace, RBCs WBCs. Patient is currently on Zosyn. ICU, nephrology, cardiology GI has been consulted. 01/09. Patient seen and examined. Currently states he is doing okay. Patient currently on dobutamine drip. Hemoglobin this morning is 7.3. 01/10. Patient seen and examined. Sitting upright in the bed. Discussed with him regarding goals of care, he wants her daughter to make a decision regarding CODE STATUS. Denies any chest pain. Gets short of breath on exertion /. Patient seen and examined. Blood work done this morning showedW6.3, hemoglobin 7.8, platelet count 94, sodium 135, Potassium 3.5, BUN 39, creatinine 1.78, glucose 115.Vital signs temperature afebrile, heart rate 91, respiration 22, blood pressure 9761, currently on 2 L of oxygen . Patient seen and examined. Blood work done showedWBC 9.8, hemoglobin 8.1, platelet count 89, sodium 135, potassium 4, BUN 35, creatinine 1.78. Patient continues to be on 2 L of oxygen. 01/14. Patient seen and examined. Currently sitting upright in the bed. No acute issues overnight. Currently on 2 L of oxygen REVIEW OF SYSTEMS: CONSTITUTIONAL: No fever, no malaise,. CARDIOVASCULAR: No chest pain, no palpitations, no syncope. PULMONARY: No shortness of breath, no cough, GASTROINTESTINAL: No diarrhea, no nausea, no vomiting, no abdominal pain. NEUROLOGICAL: No headaches, no weakness, PHYSICAL EXAMINATION: GENERAL: The patient is alert and oriented x3, ill looking HEENT: Pupils are round and equally reacting to light. EOMI. No scleral icterus. No conjunctival pallor. Normocephalic, atraumatic. No pharyngeal erythema. No thyromegaly. CARDIOVASCULAR: S1 and S2 present. No murmurs, rubs, or gallops. PULMONARY: Diminished breath sounds at the bases bilaterally no wheezing or crackles. ABDOMEN: Soft, nontender, nondistended, normoactive bowel sounds. No palpable organomegaly. MUSCULOSKELETAL: No joint swelling or deformity. EXTREMITIES: No cyanosis, clubbing, or pedal edema. NEUROLOGICAL: Gross neurological examination did not reveal any focal deficits. 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 Hypertension Hyperlipidemia Hard of hearing History of CVA with left-sided weakness Acute hypoxic respiratory failure Fluid overload: Skin cancer: History of melanoma Osteoarthritis History of asthma Monitor vital signs Monitor CBC Monitor CMP Continue telemetry monitoring Encourage use of incentive spirometer status post EGD showed no active GI bleed. Colonoscopy 01/07 negative for any active bleed, per GI likely to diverticular bleed which is stopped now. CT abdomen pelvismoderate bilateral pleural effusion, dependent airspace consolidation, abdominal ascites, dilated small bowel measuring up to 2.7 cm, atrophic kidneys, diverticulosis. echo showed EF less than 20%, decreased opening/excursion of aortic valve, moderate to severe pulmonary hypertension. Continue amiodarone 400 mg twice daily Continue IV Protonix Hold aspirin and Plavix Hold antihypertensives Strict I's and O's, daily weights, continue oral Lasix Nephrology following Cardiology following Pulmonology following Labs and medication were reviewed.. Continue same treatment. Continue with s ymptomatic treatment. Resume home medication. Monitor labs and vitals. DVT and GI prophylaxis. Further recommendations as per clinical course of the patient Dictation was produced using [employer] dictation software. please excuse any grammatical, word or spelling errors. Objective - Vital Signs Vital signs: Vital Signs Temp 97.0 F L 01/14/25 08:00 Pulse 68 01/14/25 13:11 Resp 18 01/14/25 08:00 BP 102/38 01/14/25 12:00 Pulse Ox 94 L 01/14/25 08:00 FiO2 40 01/12/25 18:27 Intake & Output 01/13/25 01/14/25 01/14/25 18:59 06:59 18:59 Output Total 1400 700 Balance -1400 -700 Weight 109.5 kg Output: Urine 1400 700 Other: Voiding Method Indwelling Catheter Indwelling Catheter Indwelling Catheter - Labs CBC & Chem 7: 01/13/25 05:13 01/13/25 05:13
--- NOTE | 2025-01-14 14:34 | P.PN ---
Subjective Progress Note Date: 01/14/25 This is an 84-year-old male patient admitted to the hospital with GI bleed with history of atrial fibrillation. Patient has been treated in the intensive care unit and transferred to cardiac stepdown unit. Patient has been maintained on oral amiodarone and Toprol XL. Heart rates are controlled in the 60s and 70s, blood pressure 102/38. Telemetry is atrial fibrillation. Physical examination: Gen: This is an 84-year-old male in no acute distress VS: reviewed LUNGS: Good air entry bilaterally. No intercostal retractions. HEART: Irregular rhythm, first and second heart sounds. ABDOMEN: Soft No tenderness. EXTREMITIES: No pedal edema. No calf tenderness. Assessment: Atrial fibrillation with controlled ventricular rate GI bleed Plan: Continue patient on amiodarone, aspirin, Toprol Continue patient on Lasix 40 mg oral twice daily managed by nephrology Patient is not on anticoagulation due to GI bleed Further recommendations to follow based upon clinical course Nurse practitioner note has been reviewed, I agree with documented findings and plan of care. Patient was seen and examined. Objective - Vital Signs Vital signs: Vital Signs Temp 97.0 F L 01/14/25 08:00 Pulse 68 01/14/25 13:11 Resp 18 01/14/25 08:00 BP 102/38 01/14/25 12:00 Pulse Ox 94 L 01/14/25 08:00 FiO2 40 01/12/25 18:27 Intake & Output 01/13/25 01/14/25 01/14/25 18:59 06:59 18:59 Output Total 1400 700 Balance -1400 -700 Weight 109.5 kg Output: Urine 1400 700 Other: Voiding Method Indwelling Catheter Indwelling Catheter Indwelling Catheter - Labs CBC & Chem 7: 01/13/25 05:13 01/13/25 05:13
--- NOTE | 2025-01-14 18:55 | P.PN ---
Subjective Progress Note Date: 01/14/25 On 01/11/2025, the patient is being seen for a follow-up. The patient this morning is calm and comfortable. Slightly bronchospastic and wheezy on examination. Nevertheless, he denies having any significant shortness of breath and the patient remains on 2 L of oxygen by nasal cannula. The patient is post acute GI bleeding with secondary anemia. The patient underwent a colonoscopy on 01/07/2025 and the patient was found to have a normal appearing colon from rectum to cecum. No evidence of any colitis or malignancy. No evidence of any active bleeding. There was scattered sigmoid diverticulosis and grade 2 hemorrhoids. During the course of this hospitalization, the patient received a total of 4 units of packed RBC, 2 units of fresh frozen plasma and 1 unit of platelet. The patient is currently on IV hydration. Hemoglobin is at 7.8. On a separate note, the patient is in atrial fibrillation. He remains on amiodarone at 0.5 mg/min. Rate is under better control for now. His echocardiogram done on 01/07/2025 showed evidence of severe LV dysfunction with an ejection fraction of 15 to 20% along with low-grade aortic stenosis without any regurgitation, moderate to severe pulmonary pretension with estimated right ventricular systolic pressure of 54. The patient remains on IV Lasix 40 mg every 12 hours. Fluid balance is negative over the past 24 hours and this is in the order of - 2.6 L. Chest x-ray from today is still showing pulm vascular congestion and cardiomegaly and small bilateral pleural effusions. On today's evaluation of 01/12/2025, the patient is stable on 2 L of oxygen by nasal cannula. No reported GI bleeding. Hemoglobin stable at 8.1. Platelet count is at 89. BUN 35 with a creatinine 1.7. Sodium is at 134 with a potassium level is at 4.0. The patient continues to diurese with IV Lasix. The patient is receiving Lasix 40 mg IV every 12 hours. Overall fluid balance has been -2.6 L over the past 24 hours and the patient is headed towards another 1.1 L negative fluid balance for today. The follow-up chest x-ray from today shows improvement in the pulm vascular congestion. There is still persistent pulm vessel congestion bilateral pleural effusion along with cardiomegaly. The patient is awake and alert. Denies having any specific complaints. Denies having any chest pain. No other significant events overnight. He is known to have systolic heart failure with severe LV dysfunction ejection fraction of 15 to 20%. He also has a low-grade aortic stenosis without regurgitation and moderate to severe pulm hypertension with a PA pressure of 54. On today's evaluation of 01/13/2025, the patient is doing well and he has no specific complaints. He remains on 2 L of oxygen by nasal cannula. He remains in atrial fibrillation. He is receiving Lasix and he was given 40 mg of IV Lasix and additional dose in addition to his oral medication. His fluid balance is -1.1 L over the past 24 hours. Chest x-ray still showing findings consistent with CHF with pulm vascular congestion and cardiomegaly and blunting of the costophrenic angles indicative of an underlying pleural effusions bilaterally. The patient denies having any significant chest pain or shortness of breath no evidence of any GI bleeding. Hemoglobin remained stable at 8 with a white cell count of 7.9. Platelet count is 104. BUN is 40 with a creatinine of 1.6 and a sodium levels at 133. The patient is on metoprolol 12.5 mg p.o. twice daily and amiodarone 400 mg p.o. twice daily and midodrine was also added by nephrology. Being given Aranesp for chronic anemia. On 01/14/2025, the patient is calm and comfortable. Shows no signs of any GI bleeding. Continues to have some pulm vessel congestion and crackles in lung base bilaterally and the patient is currently on 2 L of oxygen by nasal cannula. The patient is currently on oral Lasix. Remains on DuoNeb nebulized treatments [id number]. Remains on metoprolol 12.5 mg p.o. twice a day. No anticoagulants for now. Hemoglobin stable at 8 from yesterday. No new labs are available from today. Objective - Vital Signs Vital signs: Vital Signs Temp 97.9 F 01/14/25 04:00 Pulse 78 01/14/25 10:09 Resp 18 01/14/25 04:00 BP 97/51 01/14/25 04:00 Pulse Ox 94 L 01/14/25 04:00 FiO2 40 01/12/25 18:27 Intake & Output 01/13/25 01/14/25 01/14/25 18:59 06:59 18:59 Output Total 1400 700 Balance -1400 -700 Weight 109.5 kg Output: Urine 1400 700 Other: Voiding Method Indwelling Catheter Indwelling Catheter - Exam Mild respiratory distress, oriented 3. The patient is currently 2 L of oxygen by nasal cannula. No signs of any significant respiratory distress HEENT examination is grossly unremarkable. Mucous membranes are moist. No oral lesions. Neck supple. Full range of motion. No adenopathy thyromegaly or neck vein distention. Cardiovascular examination reveals irregular consistent with atrial fibrillation. No S3 or S4. No discernible murmur noted. Lungs reveal scattered rhonchi and crackles. Breath sounds equal. No significant wheezing on today's evaluation. Abdomen soft bowel sounds are heard. No masses or tenderness. Dried blood is noted in the area of the groin, over his lower abdomen, scrotum, and penis. Extremities are intact. No cyanosis clubbing or edema. Skin is without rash or lesion. Neurologic examination is brief but nonfocal. - Labs CBC & Chem 7: 01/13/25 05:13 01/13/25 05:13 Assessment and Plan Plan: Acute lower GI bleed, with severe anemia. Colonoscopy was done on 01/07/2025. No evidence of any acute bleeding. No evidence of any malignancy. Scattered sigmoid diverticulosis and grade 2 internal hemorrhoids. The patient's hemoglobin is stable for now. No evidence of any active GI bleeding. Hemoglobin is at 8. The patient is tolerating diet at this point. Hemodynamically stable. Acute anemia, secondary blood loss and the patient was transfused a total of 4 units of packed RBC during this current hospitalization Acute hypoxic respiratory failure currently on 2 L of oxygen by nasal cannula, chest x-ray continues to show pulm vessel congestion and edema in addition to small bilateral pleural effusion and the patient currently on IV Lasix with a negative fluid balance. Chest x-ray still showing pulm vascular congestion and cardiomegaly Acute non-ST segment elevation myocardial infarction Versus demand type of myocardial ischemia. Chronic systolic heart failure with an ejection fraction of 15 to 20% with secondary pulm hypertension, severe with a PA pressure of 56. Atrial fibrillation, controlled rate, currently on a combination of amiodarone and metoprolol History of asthma. History of CVA. History of hyperlipidemia. History of hypertension. History of melanoma, with possible metastatic melanoma. History of osteoarthritis. Plan: Continue same treatment Repeat chest x-ray in the morning Keep the patient oxygen at 2 L nasal cannula Continue Lasix p.o. Fluids balance is negative Continue amiodarone 400 mg p.o. twice a day Continue metoprolol 12.5 mg p.o. 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
[2025-01-15 07:12] LABS: Anisocytosis Moderate; HCT 28.1 % (39.0-53.0); Hypochromasia Marked; MCH 24.7 pg (25.0-35.0); MCHC 28.6 g/dL (31.0-37.0); MCV 86.6 fL (80.0-100.0); Mean Platelet Volume 9.3; Platelet Count 155 k/uL (150-450); Poikilocytosis Slight; RBC 3.24 m/uL (4.30-5.90); RDW 21.4 % (11.5-15.5)
[2025-01-15 07:45] LABS: ALT 24 U/L (4-49); AST 40 U/L (17-59); African American GFR (CKD) 31 (>60 ml/min/1.73 sqM); Albumin 2.9 g/dL (3.5-5.0); Alkaline Phosphatase 120 U/L (38-126); Anion Gap 9 mmol/L; Blood Urea Nitrogen 60 mg/dL (9-20); Calcium 8.4 mg/dL (8.4-10.2); Carbon Dioxide 28 mmol/L (22-30); Chloride 97 mmol/L (98-107); Glucose 156 mg/dL (74-99); Non-African American GFR(CKD) 27 (>60 ml/min/1.73 sqM); Potassium 4.3 mmol/L (3.5-5.1); Sodium 134 mmol/L (137-145); Total Bilirubin 0.6 mg/dL (0.2-1.3); Total Protein 6.8 g/dL (6.3-8.2)
--- NOTE | 2025-01-15 10:04 | P.PN ---
Subjective Patient is seen in follow-up for acute kidney injury on chronic kidney disease. Renal function worsening with diuresis. Dyspnea improved. On 2 L nasal cannula. No active bleeding. Hemoglobin stable. Vital signs are stable. General: No acute distress. HEENT: Head exam is unremarkable. On nasal cannula. LUNGS: Scattered rhonchi. HEART: Rate and Rhythm are regular. ABDOMEN: Nontender. EXTREMITITES: Trace edema. Objective - Vital Signs Vital signs: Vital Signs Temp 97.6 F 01/15/25 08:00 Pulse 66 01/15/25 08:00 Resp 18 01/15/25 08:00 BP 91/58 01/15/25 08:00 Pulse Ox 99 01/15/25 08:00 FiO2 40 01/12/25 18:27 Intake & Output 01/14/25 01/15/25 01/15/25 18:59 06:59 18:59 Intake Total 800 10 Output Total 500 400 Balance -500 400 10 Weight 112 kg Intake: IV 20 10 Invasive Line 5 20 10 Oral 240 0 Tube Feeding 540 Output: Urine 500 400 Other: Voiding Method Indwelling Catheter Indwelling Catheter Indwelling Catheter # Bowel Movements 1 - Labs CBC & Chem 7: 01/15/25 06:37 01/15/25 06:37 Labs: Abnormal Lab Results - Last 24 Hours (Table) 01/15/25 01/15/25 Range/Units 06:37 06:37 RBC 3.24 L (4.30-5.90) m/uL Hgb 8.0 L (13.0-17.5) gm/dL Hct 28.1 L (39.0-53.0) % MCH 24.7 L (25.0-35.0) pg MCHC 28.6 L (31.0-37.0) g/dL RDW 21.4 H (11.5-15.5) % Sodium 134 L (137-145) mmol/L Chloride 97 L (98-107) mmol/L BUN 60 H (9-20) mg/dL Creatinine 2.19 H (0.66-1.25) mg/dL Glucose 156 H (74-99) mg/dL Albumin 2.9 L (3.5-5.0) g/dL Assessment and Plan Plan: Assessment: 1. Acute kidney injury secondary to ATN. Renal function worse with creatinine 2.19 today. No hydronephrosis noted on CT. 2. Chronic kidney disease stage IIIb with baseline creatinine near 1.5 secondary to nephrosclerosis. 3. A-fib with RVR now on oral meds. 4. Acute GI bleed status post blood transfusions this admission. Component of chronic kidney disease. Colonoscopy showed hemorrhoids and diverticulosis with no active bleeding. On Aranesp. 5. Volume overload. 6. Acute on chronic systolic CHF ejection fraction of 15 to 20% with moderate to severe pulmonary hypertension. 7. Hypokalemia from diuresis. Replaced. Better. 8. Hypomagnesemia from diuresis. On oral magnesium oxide. Improved. Plan: Maintain Lasix. Will benefit from SGLT2 inhibitor. UA from this admission suggestive of UTI. Avoid nephrotoxins. Continue to monitor renal function and urine output. Increase dose of midodrine. Hold for systolic blood pressure greater than 110. Repeat labs in the morning. Repeat chest x-ray in the morning as well.
--- NOTE | 2025-01-15 12:31 | P.PN ---
Subjective Progress Note Date: 01/15/25 This is an 84-year-old male patient admitted to the hospital with GI bleed with history of atrial fibrillation. Patient has been treated in the intensive care unit and transferred to cardiac stepdown unit. Patient has been maintained on oral amiodarone and Toprol XL. Heart rates are controlled in the 60s and 70s, blood pressure 113/57, pulse ox 97% on room air. Telemetry is sinus rhythm. Physical examination: Gen: This is an 84-year-old male in no acute distress VS: reviewed LUNGS: Good air entry bilaterally. No intercostal retractions. HEART: Irregular rhythm, first and second heart sounds. ABDOMEN: Soft No tenderness. EXTREMITIES: No pedal edema. No calf tenderness. Assessment: Atrial fibrillation with controlled ventricular rate GI bleed Plan: Continue patient on amiodarone, aspirin, Toprol Continue patient on Lasix 40 mg oral twice daily managed by nephrology Patient is not on anticoagulation due to GI bleed No further cardiac workup at this time Cardiology will sign off this case and follow on an as-needed basis. Please reconsult for any new concerns. Patient may follow-up in the office in 2 weeks. Nurse practitioner note has been reviewed, I agree with documented findings and plan of care. Patient was seen and examined. Objective - Vital Signs Vital signs: Vital Signs Temp 97.6 F 01/15/25 08:00 Pulse 66 01/15/25 08:00 Resp 18 01/15/25 08:00 BP 91/58 01/15/25 08:00 Pulse Ox 99 01/15/25 08:00 FiO2 40 01/12/25 18:27 Intake & Output 01/14/25 01/15/25 01/15/25 18:59 06:59 18:59 Intake Total 800 Output Total 500 400 Balance -500 400 Weight 112 kg Intake: IV 20 Invasive Line 5 20 Oral 240 Tube Feeding 540 Output: Urine 500 400 Other: Voiding Method Indwelling Catheter Indwelling Catheter - Labs CBC & Chem 7: 01/15/25 06:37 01/15/25 06:37 Labs: Abnormal Lab Results - Last 24 Hours (Table) 01/15/25 01/15/25 Range/Units 06:37 06:37 RBC 3.24 L (4.30-5.90) m/uL Hgb 8.0 L (13.0-17.5) gm/dL Hct 28.1 L (39.0-53.0) % MCH 24.7 L (25.0-35.0) pg MCHC 28.6 L (31.0-37.0) g/dL RDW 21.4 H (11.5-15.5) % Sodium 134 L (137-145) mmol/L Chloride 97 L (98-107) mmol/L BUN 60 H (9-20) mg/dL Creatinine 2.19 H (0.66-1.25) mg/dL Glucose 156 H (74-99) mg/dL Albumin 2.9 L (3.5-5.0) g/dL
--- NOTE | 2025-01-15 13:25 | P.PN ---
Subjective Progress Note Date: 01/15/25 89-year-old male patient with past medical history significant for coronary artery disease status post stenting 2021, ischemic cardiomyopathy with a EF 40 to 45%, history of CVA with left-sided residual deficits, hypertension, hyperlipidemia, hard of hearing, history of skin cancer who presented to ER with a complaint of blood in the stools. Patient was brought to the ER by EMS, was noted to have large bloody bowel movement, was complaining of dizziness, also complained of nausea and abdominal discomfort. Patient was afebrile on presentation, was tachycardic and hypotensive, initially was on on room air, later on required supplemental oxygen 2 L after IV fluids. WBCs 12.5, hemoglobin 5.7, came up to 7.4 after 3 units. Platelet 227. INR 1.3. Sodium 139, potassium 5.4, chloride 107, CO2 12, BUN 51, creatinine 2.03, GFR 30. Liver profile unremarkable. Chest x-ray showed small left pleural effusion with left basilar opacities, diffuse interstitial prominence. 01/07--patient was seen and examined today. Patient is afebrile, heart rate 91, respiratory rate 27, blood pressure 99/56, saturating 99%, currently on BiPAP with 30% FiO2. WBCs 12.1, hemoglobin 8.3, platelet 158. Sodium 143, potassium 4.9, BUN 59, creatinine 2.17. Troponin was 16.5, went up to 12.2. proBNP 11,600. Patient underwent colonoscopy today which showed normal-appearing colon from rectum to cecum with no evidence of colitis or colorectal neoplasia, no active GI bleed, scattered sigmoid diverticulosis. Grade 2 hemorrhoids. 01/08--patient initially presented to ED with GI bleed, transferred to ICU for GI bleed, hemorrhagic shock, requiring Levophed, underwent EGD and colonoscopy, showed diverticular disease and hemorrhoids, required 4 unit of packed RBCs, 2 units of fresh frozen plasma, 1 unit of platelets, DDAVP, no further bleeding at this point, hemoglobin is now stable. Remains on norepinephrine. On 4 L oxygen. Cardiology following for NSTEMI. Patient is afebrile, heart rate 92, respiratory rate 27, saturating 100% on 3 L. Blood pressure is soft 93/56. Patient currently on Levophed. Chest x-ray showed pleural effusion, CHF. Echocardiogram showed severe LV dysfunction with EF less than 20%, RV enlargement, moderate to severe pulmonary hypertension, reduced aortic valve excursion/opening. WBCs 8.5, hemoglobin 8.4, platelet 120. Sodium 139, potassium 4.2, chloride 102, CO2 24, BUN 60, creatinine 2.15. UA showed large leukocyte Estrace, RBCs WBCs. Patient is currently on Zosyn. ICU, nephrology, cardiology GI has been consulted. 01/09. Patient seen and examined. Currently states he is doing okay. Patient currently on dobutamine drip. Hemoglobin this morning is 7.3. 01/10. Patient seen and examined. Sitting upright in the bed. Discussed with him regarding goals of care, he wants her daughter to make a decision regarding CODE STATUS. Denies any chest pain. Gets short of breath on exertion /. Patient seen and examined. Blood work done this morning showedW6.3, hemoglobin 7.8, platelet count 94, sodium 135, Potassium 3.5, BUN 39, creatinine 1.78, glucose 115.Vital signs temperature afebrile, heart rate 91, respiration 22, blood pressure 9761, currently on 2 L of oxygen . Patient seen and examined. Blood work done showedWBC 9.8, hemoglobin 8.1, platelet count 89, sodium 135, potassium 4, BUN 35, creatinine 1.78. Patient continues to be on 2 L of oxygen. 01/14. Patient seen and examined. Currently sitting upright in the bed. No acute issues overnight. Currently on 2 L of oxygen 01/15 Patient seen and examined. Blood work this morning showed WBC 10, hemoglobin 8, platelet count 155, sodium 132, potassium 4.3, BUN 60, creatinine 2.19. Currently on oral Lasix 40 g twice a day. Nephrology increase the dose of midodrine REVIEW OF SYSTEMS: CONSTITUTIONAL: No fever, no malaise,. CARDIOVASCULAR: No chest pain, no palpitations, no syncope. PULMONARY: No shortness of breath, no cough, GASTROINTESTINAL: No diarrhea, no nausea, no vomiting, no abdominal pain. NEUROLOGICAL: No headaches, no weakness, PHYSICAL EXAMINATION: GENERAL: The patient is alert and oriented x3, ill looking HEENT: Pupils are round and equally reacting to light. EOMI. No scleral icterus. No conjunctival pallor. Normocephalic, atraumatic. No pharyngeal erythema. No thyromegaly. CARDIOVASCULAR: S1 and S2 present. No murmurs, rubs, or gallops. PULMONARY: Diminished breath sounds at the bases bilaterally no wheezing or crackles. ABDOMEN: Soft, nontender, nondistended, normoactive bowel sounds. No palpable organomegaly. MUSCULOSKELETAL: No joint swelling or deformity. EXTREMITIES: No cyanosis, clubbing, or pedal edema. NEUROLOGICAL: Gross neurological examination did not reveal any focal deficits. 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 Hypertension Hyperlipidemia Hard of hearing History of CVA with left-sided weakness Acute hypoxic respiratory failure Fluid overload: Skin cancer: History of melanoma Osteoarthritis History of asthma Monitor vital signs Monitor CBC Monitor CMP Continue telemetry monitoring Encourage use of incentive spirometer status post EGD showed no active GI bleed. Colonoscopy 01/07 negative for any active bleed, per GI likely to diverticular bleed which is stopped now. CT abdomen pelvismoderate bilateral pleural effusion, dependent airspace consolidation, abdominal ascites, dilated small bowel measuring up to 2.7 cm, atrophic kidneys, diverticulosis. echo showed EF less than 20%, decreased opening/excursion of aortic valve, mo derate to severe pulmonary hypertension. Continue amiodarone 400 mg twice daily Change Protonix to oral Hold aspirin and Plavix Hold antihypertensives Strict I's and O's, daily weights, continue oral Lasix Nephrology following Cardiology following Pulmonology following Labs and medication were reviewed.. Continue same treatment. Continue with symptomatic treatment. Resume home medication. Monitor labs and vitals. DVT and GI prophylaxis. Further recommendations as per clinical course of the patient Dictation was produced using [employer] dictation software. please excuse any grammatical, word or spelling errors. Objective - Vital Signs Vital signs: Vital Signs Temp 97.6 F 01/15/25 08:00 Pulse 66 01/15/25 08:00 Resp 18 01/15/25 08:00 BP 91/58 01/15/25 08:00 Pulse Ox 99 01/15/25 08:00 FiO2 40 01/12/25 18:27 Intake & Output 01/14/25 01/15/25 01/15/25 18:59 06:59 18:59 Intake Total 800 10 Output Total 500 400 Balance -500 400 10 Weight 112 kg Intake: IV 20 10 Invasive Line 5 20 10 Oral 240 0 Tube Feeding 540 Output: Urine 500 400 Other: Voiding Method Indwelling Catheter Indwelling Catheter Indwelling Catheter # Bowel Movements 1 - Labs CBC & Chem 7: 01/15/25 06:37 01/15/25 06:37 Labs: Abnormal Lab Results - Last 24 Hours (Table) 01/15/25 01/15/25 Range/Units 06:37 06:37 RBC 3.24 L (4.30-5.90) m/uL Hgb 8.0 L (13.0-17.5) gm/dL Hct 28.1 L (39.0-53.0) % MCH 24.7 L (25.0-35.0) pg MCHC 28.6 L (31.0-37.0) g/dL RDW 21.4 H (11.5-15.5) % Sodium 134 L (137-145) mmol/L Chloride 97 L (98-107) mmol/L BUN 60 H (9-20) mg/dL Creatinine 2.19 H (0.66-1.25) mg/dL Glucose 156 H (74-99) mg/dL Albumin 2.9 L (3.5-5.0) g/dL
[2025-01-15] MEDS: MIDODRINE 5 MG TAB PO SCH (14:17)
--- NOTE | 2025-01-15 17:02 | P.PN ---
Subjective Progress Note Date: 01/15/25 On 01/11/2025, the patient is being seen for a follow-up. The patient this morning is calm and comfortable. Slightly bronchospastic and wheezy on examination. Nevertheless, he denies having any significant shortness of breath and the patient remains on 2 L of oxygen by nasal cannula. The patient is post acute GI bleeding with secondary anemia. The patient underwent a colonoscopy on 01/07/2025 and the patient was found to have a normal appearing colon from rectum to cecum. No evidence of any colitis or malignancy. No evidence of any active bleeding. There was scattered sigmoid diverticulosis and grade 2 hemorrhoids. During the course of this hospitalization, the patient received a total of 4 units of packed RBC, 2 units of fresh frozen plasma and 1 unit of platelet. The patient is currently on IV hydration. Hemoglobin is at 7.8. On a separate note, the patient is in atrial fibrillation. He remains on amiodarone at 0.5 mg/min. Rate is under better control for now. His echocardiogram done on 01/07/2025 showed evidence of severe LV dysfunction with an ejection fraction of 15 to 20% along with low-grade aortic stenosis without any regurgitation, moderate to severe pulmonary pretension with estimated right ventricular systolic pressure of 54. The patient remains on IV Lasix 40 mg every 12 hours. Fluid balance is negative over the past 24 hours and this is in the order of - 2.6 L. Chest x-ray from today is still showing pulm vascular congestion and cardiomegaly and small bilateral pleural effusions. On today's evaluation of 01/12/2025, the patient is stable on 2 L of oxygen by nasal cannula. No reported GI bleeding. Hemoglobin stable at 8.1. Platelet count is at 89. BUN 35 with a creatinine 1.7. Sodium is at 134 with a potassium level is at 4.0. The patient continues to diurese with IV Lasix. The patient is receiving Lasix 40 mg IV every 12 hours. Overall fluid balance has been -2.6 L over the past 24 hours and the patient is headed towards another 1.1 L negative fluid balance for today. The follow-up chest x-ray from today shows improvement in the pulm vascular congestion. There is still persistent pulm vessel congestion bilateral pleural effusion along with cardiomegaly. The patient is awake and alert. Denies having any specific complaints. Denies having any chest pain. No other significant events overnight. He is known to have systolic heart failure with severe LV dysfunction ejection fraction of 15 to 20%. He also has a low-grade aortic stenosis without regurgitation and moderate to severe pulm hypertension with a PA pressure of 54. On today's evaluation of 01/13/2025, the patient is doing well and he has no specific complaints. He remains on 2 L of oxygen by nasal cannula. He remains in atrial fibrillation. He is receiving Lasix and he was given 40 mg of IV Lasix and additional dose in addition to his oral medication. His fluid balance is -1.1 L over the past 24 hours. Chest x-ray still showing findings consistent with CHF with pulm vascular congestion and cardiomegaly and blunting of the costophrenic angles indicative of an underlying pleural effusions bilaterally. The patient denies having any significant chest pain or shortness of breath no evidence of any GI bleeding. Hemoglobin remained stable at 8 with a white cell count of 7.9. Platelet count is 104. BUN is 40 with a creatinine of 1.6 and a sodium levels at 133. The patient is on metoprolol 12.5 mg p.o. twice daily and amiodarone 400 mg p.o. twice daily and midodrine was also added by nephrology. Being given Aranesp for chronic anemia. On 01/14/2025, the patient is calm and comfortable. Shows no signs of any GI bleeding. Continues to have some pulm vessel congestion and crackles in lung base bilaterally and the patient is currently on 2 L of oxygen by nasal cannula. The patient is currently on oral Lasix. Remains on DuoNeb nebulized treatments [id number]. Remains on metoprolol 12.5 mg p.o. twice a day. No anticoagulants for now. Hemoglobin stable at 8 from yesterday. No new labs are available from today. On 01/15/2025, patient is calm and comfortable. No evidence of any GI bleeding. No respiratory difficulties. The patient remains on Lasix 40 mg p.o. twice a day. Nephrology added midodrine. The patient was consultation with a hemoglobin of 8 and platelet count of 155. BUN is 16 with a creatinine of 2.19 and nephrology on the case. Hemoglobin stable at 8.0. No other significant events overnight. Nephrology on the case. Midodrine was added. Noted the patient has impaired LV function with an EF of around 15 to 20% with moderate severe pulmonary hypertension. Objective - Vital Signs Vital signs: Vital Signs Temp 97.6 F 01/15/25 12:32 Pulse 68 01/15/25 16:03 Resp 18 01/15/25 12:32 BP 101/66 01/15/25 12:32 Pulse Ox 100 01/15/25 12:32 FiO2 40 01/12/25 18:27 Intake & Output 01/14/25 01/15/25 01/15/25 18:59 06:59 18:59 Intake Total 800 231 Output Total 500 400 320 Balance -500 400 -89 Weight 112 kg Intake: IV 20 10 Invasive Line 5 20 10 Oral 240 221 Tube Feeding 540 Output: Urine 500 400 320 Other: Voiding Method Indwelling Catheter Indwelling Catheter Indwelling Catheter # Bowel Movements 1 - Exam Mild respiratory distress, oriented 3. The patient is currently 2 L of oxygen by nasal cannula. No signs of any significant respiratory distress HEENT examination is grossly unremarkable. Mucous membranes are moist. No oral lesions. Neck supple. Full range of motion. No adenopathy thyromegaly or neck vein distention. Cardiovascular examination reveals irregular consistent with atrial fi brillation. No S3 or S4. No discernible murmur noted. Lungs reveal scattered rhonchi and crackles. Breath sounds equal. No significant wheezing on today's evaluation. Abdomen soft bowel sounds are heard. No masses or tenderness. Dried blood is noted in the area of the groin, over his lower abdomen, scrotum, and penis. Extremities are intact. No cyanosis clubbing or edema. Skin is without rash or lesion. Neurologic examination is brief but nonfocal. - Labs CBC & Chem 7: 01/15/25 06:37 01/15/25 06:37 Labs: Abnormal Lab Results - Last 24 Hours (Table) 01/15/25 01/15/25 Range/Units 06:37 06:37 RBC 3.24 L (4.30-5.90) m/uL Hgb 8.0 L (13.0-17.5) gm/dL Hct 28.1 L (39.0-53.0) % MCH 24.7 L (25.0-35.0) pg MCHC 28.6 L (31.0-37.0) g/dL RDW 21.4 H (11.5-15.5) % Sodium 134 L (137-145) mmol/L Chloride 97 L (98-107) mmol/L BUN 60 H (9-20) mg/dL Creatinine 2.19 H (0.66-1.25) mg/dL Glucose 156 H (74-99) mg/dL Albumin 2.9 L (3.5-5.0) g/dL Assessment and Plan Plan: Acute lower GI bleed, with severe anemia. Colonoscopy was done on 01/07/2025. No evidence of any acute bleeding. No evidence of any malignancy. Scattered sigmoid diverticulosis and grade 2 internal hemorrhoids. The patient's h emoglobin is stable for now. No evidence of any active GI bleeding. Acute anemia, secondary blood loss and the patient was transfused a total of 4 units of packed RBC during this current hospitalization Acute hypoxic respiratory failure currently on 2 L of oxygen by nasal cannula, chest x-ray continues to show pulm vessel congestion and edema in addition to small bilateral pleural effusion and the patient currently on IV Lasix with a negative fluid balance. Chest x-ray still showing pulm vascular congestion and cardiomegaly Acute non-ST segment elevation myocardial infarction Versus demand type of myocardial ischemia. Chronic systolic heart failure with an ejection fraction of 15 to 20% with secondary pulm hypertension, severe with a PA pressure of 56. Atrial fibrillation, controlled rate, currently on a combination of amiodarone and metoprolol Chronic kidney disease, stage IIIb secondary to nephrosclerosis. Patient also has a component of ATN with worsening renal function. No evidence of hydronephrosis. Creatinine is at 2.1. Nephrology on the case. Midodrine was added. Remains on Lasix. History of asthma. History of CVA. History of hyperlipidemia. History of hypertension. History of melanoma, with possible metastatic melanoma. History of osteoarthritis. Plan: Continue same treatment Keep the patient oxygen at 2 L nasal cannula Continue Lasix p.o. Fluids balance is negative Continue amiodarone 400 mg p.o. twice a day Continue metoprolol 12.5 mg p.o. twice a day Midodrine for hypotension IV iron and the patient was given Aranesp Monitor hemoglobin Bronchodilators with DuoNeb just 4 times a day Monitor renal function Benefits Specialist on the case regarding his systolic heart failure and chronic atrial fibrillation No anticoagulants for now Pulmonary critical care services will sign off, rest of the management as per medicine and nephrology and cardiology.
[2025-01-15] MEDS: PANTOPRAZOLE 40 MG TABLET PO SCH (19:01)
--- NOTE | 2025-01-16 06:56 | XR ---
EXAMINATION TYPE: XR chest 1V DATE OF EXAM: 01/16/2025 6:46 AM COMPARISON: Multiple radiographs, with the most recent on 01/13/2025. TECHNIQUE: XR chest 1V Portable AP radiograph of the chest. CLINICAL INDICATION:Male, 84 years old with history of sob; FINDINGS: Lungs/Pleura: No pneumothorax. Blunting of both costophrenic angles. Diffuse interstitial opacities w ith bibasilar patchy airspace opacities. Heart/mediastinum: Cardiomediastinal silhouette is enlarged and stable. Atherosclerotic calcificatio ns are seen in the aorta. Musculoskeletal: No acute osseous pathology. IMPRESSION: Overall similar examination with cardiomegaly, diffuse interstitial prominence with small bilateral p leural effusions with probable atelectasis. Findings suggest CHF exacerbation. Superimposed infectiou s process is not excluded. [facility], , 01/16/2025 6:53 AM
[2025-01-16] MEDS: FUROSEMIDE 10 MG/ML 4 ML VIAL IV SCH (09:36)
--- NOTE | 2025-01-16 11:30 | P.PN ---
Subjective Patient is seen in follow-up for acute kidney injury on chronic kidney disease. Renal function worse with creatinine 2.19 yesterday. Edema worse today. Has Dykes catheter. Nonoliguric. Vital signs are stable. General: No acute distress. HEENT: Head exam is unremarkable. On nasal cannula. LUNGS: Scattered rhonchi. HEART: Rate and Rhythm are regular. ABDOMEN: Nontender. EXTREMITITES: 2+ edema. Objective - Vital Signs Vital signs: Vital Signs Temp 97.8 F 01/16/25 08:00 Pulse 60 01/16/25 08:39 Resp 18 01/16/25 08:39 BP 103/65 01/16/25 08:00 Pulse Ox 100 01/16/25 08:32 FiO2 40 01/12/25 18:27 Intake & Output 01/15/25 01/16/25 01/16/25 18:59 06:59 18:59 Intake Total 231 236 Output Total 320 900 Balance -89 -900 236 Intake: IV 10 Invasive Line 5 10 Oral 221 236 Output: Urine 320 900 Other: Voiding Method Indwelling Catheter Indwelling Catheter Indwelling Catheter # Bowel Movements 1 - Labs CBC & Chem 7: 01/15/25 06:37 01/15/25 06:37 Assessment and Plan Plan: Assessment: 1. Acute kidney injury secondary to ATN. Renal function worse with creatinine 2.19 yesterday. No hydronephrosis noted on CT. 2. Chronic kidney disease stage IIIb with baseline creatinine near 1.5 secondary to nephrosclerosis. 3. A-fib with RVR now on oral meds. 4. Acute GI bleed status post blood transfusions this admission. Component of chronic kidney disease. Colonoscopy showed hemorrhoids and diverticulosis with no active bleeding. On Aranesp. 5. Volume overload. 6. Acute on chronic systolic CHF ejection fraction of 15 to 20% with moderate to severe pulmonary hypertension. 7. Hypokalemia from diuresis. Replaced. Better. 8. Hypomagnesemia from diuresis. On oral magnesium oxide. Improved. Plan: Maintain Lasix. Change to IV due to worsened edema. Will benefit from SGLT2 inhibitor. UA from this admission suggestive of UTI. Avoid nephrotoxins. Continue to monitor renal function and urine output. Hold midodrine for systolic blood pressure greater than 110. Repeat labs in the morning.
[2025-01-16 13:48] LABS: Blood Urea Nitrogen 62.4 mg/dL (9.0-27.0); Calcium 8.5 mg/dL (8.7-10.3); Carbon Dioxide 27.4 mmol/L (21.6-31.8); Chloride 100 mmol/L (96-109); Glucose 119 mg/dL (70-110); Potassium 4.5 mmol/L (3.5-5.5); Sodium 137 mmol/L (135-145)
--- NOTE | 2025-01-16 14:49 | P.PN ---
Subjective Progress Note Date: 01/16/25 89-year-old male patient with past medical history significant for coronary artery disease status post stenting 2021, ischemic cardiomyopathy with a EF 40 to 45%, history of CVA with left-sided residual deficits, hypertension, hyperlipidemia, hard of hearing, history of skin cancer who presented to ER with a complaint of blood in the stools. Patient was brought to the ER by EMS, was noted to have large bloody bowel movement, was complaining of dizziness, also complained of nausea and abdominal discomfort. Patient was afebrile on presentation, was tachycardic and hypotensive, initially was on on room air, later on required supplemental oxygen 2 L after IV fluids. WBCs 12.5, hemoglobin 5.7, came up to 7.4 after 3 units. Platelet 227. INR 1.3. Sodium 139, potassium 5.4, chloride 107, CO2 12, BUN 51, creatinine 2.03, GFR 30. Liver profile unremarkable. Chest x-ray showed small left pleural effusion with left basilar opacities, diffuse interstitial prominence. 01/07--patient was seen and examined today. Patient is afebrile, heart rate 91, respiratory rate 27, blood pressure 99/56, saturating 99%, currently on BiPAP with 30% FiO2. WBCs 12.1, hemoglobin 8.3, platelet 158. Sodium 143, potassium 4.9, BUN 59, creatinine 2.17. Troponin was 16.5, went up to 12.2. proBNP 11,600. Patient underwent colonoscopy today which showed normal-appearing colon from rectum to cecum with no evidence of colitis or colorectal neoplasia, no active GI bleed, scattered sigmoid diverticulosis. Grade 2 hemorrhoids. 01/08--patient initially presented to ED with GI bleed, transferred to ICU for GI bleed, hemorrhagic shock, requiring Levophed, underwent EGD and colonoscopy, showed diverticular disease and hemorrhoids, required 4 unit of packed RBCs, 2 units of fresh frozen plasma, 1 unit of platelets, DDAVP, no further bleeding at this point, hemoglobin is now stable. Remains on norepinephrine. On 4 L oxygen. Cardiology following for NSTEMI. Patient is afebrile, heart rate 92, respiratory rate 27, saturating 100% on 3 L. Blood pressure is soft 93/56. Patient currently on Levophed. Chest x-ray showed pleural effusion, CHF. Echocardiogram showed severe LV dysfunction with EF less than 20%, RV enlargement, moderate to severe pulmonary hypertension, reduced aortic valve excursion/opening. WBCs 8.5, hemoglobin 8.4, platelet 120. Sodium 139, potassium 4.2, chloride 102, CO2 24, BUN 60, creatinine 2.15. UA showed large leukocyte Estrace, RBCs WBCs. Patient is currently on Zosyn. ICU, nephrology, cardiology GI has been consulted. 01/09. Patient seen and examined. Currently states he is doing okay. Patient currently on dobutamine drip. Hemoglobin this morning is 7.3. 01/10. Patient seen and examined. Sitting upright in the bed. Discussed with him regarding goals of care, he wants her daughter to make a decision regarding CODE STATUS. Denies any chest pain. Gets short of breath on exertion /. Patient seen and examined. Blood work done this morning showedW6.3, hemoglobin 7.8, platelet count 94, sodium 135, Potassium 3.5, BUN 39, creatinine 1.78, glucose 115.Vital signs temperature afebrile, heart rate 91, respiration 22, blood pressure 9761, currently on 2 L of oxygen . Patient seen and examined. Blood work done showedWBC 9.8, hemoglobin 8.1, platelet count 89, sodium 135, potassium 4, BUN 35, creatinine 1.78. Patient continues to be on 2 L of oxygen. 01/14. Patient seen and examined. Currently sitting upright in the bed. No acute issues overnight. Currently on 2 L of oxygen 01/15 Patient seen and examined. Blood work this morning showed WBC 10, hemoglobin 8, platelet count 155, sodium 132, potassium 4.3, BUN 60, creatinine 2.19. Currently on oral Lasix 40 g twice a day. Nephrology increase the dose of midodrine 01/16/2025 Patient is evaluated today in follow up on the medical floor currently sitting up in the chair. He remains on IV lasix and has continued peripheral edema. Continues on oxygen via nasal cannula on 2L with saturations of 100%. Chest xray reveals overall similar examination with cardiomegaly, diffuse interstitial prominence with small bilateral pleural effusions with probable atelectasis. Findings suggest CHF exacerbation. Superimposed infectious process is not excluded. Sodium today 137, potassium 4.5, BUN 62.4, creatinine 2.6. REVIEW OF SYSTEMS: CONSTITUTIONAL: No fever, no malaise,. CARDIOVASCULAR: No chest pain, no palpitations, no syncope. PULMONARY: Reports shortness of breath and cough. GASTROINTESTINAL: No diarrhea, no nausea, no vomiting, no abdominal pain. NEUROLOGICAL: No headaches, no weakness, PHYSICAL EXAMINATION: GENERAL: The patient is alert and oriented x3, ill looking HEENT: Pupils are round and equally reacting to light. EOMI. No scleral icterus. No conjunctival pallor. Normocephalic, atraumatic. No pharyngeal erythema. No thyromegaly. CARDIOVASCULAR: S1 and S2 present. No murmurs, rubs, or gallops. PULMONARY: Diminished breath sounds at the bases bilaterally no wheezing or crackles. Scattered ronchi. ABDOMEN: Soft, nontender, nondistended, normoactive bowel sounds. No palpable organomegaly. MUSCULOSKELETAL: No joint swelling or deformity. EXTREMITIES: No cyanosis, clubbing, or pedal edema. Continues with 1-2+ pitting lower extremity edema. NEUROLOGICAL: Gross neurological examination did not reveal any focal deficits. 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 Hypertension Hyperlipidemia Hard of hearing History of CVA with left-sided weakness Acute hypoxic respiratory failure Fluid overload: Skin cancer: History of melanoma Osteoarthritis History of asthma Plan Monitor vital signs Monitor CBC Monitor CMP Continue telemetry monitoring Encourage use of incentive spirometer status post EGD showed no active GI bleed. Colonoscopy 01/07 negative for any active bleed, per GI likely to diverticular bleed which is stopped now. CT abdomen pelvismoderate bilateral pleural effusion, dependent airspace consolidation, abdominal ascites, dilated small bowel measuring up to 2.7 cm, atrophic kidneys, diverticulosis. echo showed EF less than 20%, decreased opening/excursion of aortic valve, moderate to severe pulmonary hypertension. Continue amiodarone 400 mg twice daily Change Protonix to oral Hold aspirin and Plavix No anticoagulation because of the GI Bleed. Hold antihypertensives Strict I's and O's, daily weights continue IV lasix 40 mg BID. Nephrology following Cardiology following Pulmonology following Dictation was produced using [employer] dictation software. please excuse any grammatical, word or spelling errors. The impression and plan of care has been dictated by Althea Post, Nurse Practitioner as directed. Dr. Michael MD I have performed a history and physical examination and medical decision making of this patient, discussed the same with the dictator, and agree with the dictators assessment and plan as written, documented as a scribe. Based on total visit time, I have performed more than 50% of this visit. Objective - Vital Signs Vital signs: Vital Signs Temp 97.8 F 01/16/25 08:00 Pulse 60 01/16/25 11:42 Resp 18 01/16/25 11:42 BP 103/65 01/16/25 08:00 Pulse Ox 100 01/16/25 08:32 FiO2 40 01/12/25 18:27 Intake & Output 01/15/25 01/16/25 01/16/25 18:59 06:59 18:59 Intake Total 231 236 Output Total 320 900 Balance -89 -900 236 Intake: IV 10 Invasive Line 5 10 Oral 221 236 Output: Urine 320 900 Other: Voiding Method Indwelling Catheter Indwelling Catheter Indwelling Catheter # Bowel Movements 1 - Labs CBC & Chem 7: 01/15/25 06:37 01/16/25 06:02 Labs: Abnormal Lab Results - Last 24 Hours (Table) 01/16/25 Range/Units 06:02 BUN 62.4 H (9.0-27.0) mg/dL Creatinine 2.6 H (0.6-1.5) mg/dL Est GFR (CKD-EPI) 24 L (>=60) BUN/Creatinine Ratio 24.00 H (12.00-20.00) Ratio Glucose 119 H (70-110) mg/dL Calcium 8.5 L (8.7-10.3) mg/dL Assessment and Plan Time with Patient: Less than 30
[2025-01-17 09:35] LABS: BUN/Creat Ratio 22.52 Ratio (12.00-20.00); Blood Urea Nitrogen 65.3 mg/dL (9.0-27.0); Calcium 8.4 mg/dL (8.7-10.3); Carbon Dioxide 26.7 mmol/L (21.6-31.8); Chloride 99 mmol/L (96-109); Glucose 114 mg/dL (70-110); Potassium 4.4 mmol/L (3.5-5.5); Sodium 137 mmol/L (135-145)
--- NOTE | 2025-01-17 10:56 | P.PN ---
Subjective Patient is seen in follow-up for acute kidney injury on chronic kidney disease. Renal function worsening with diuresis. Has Dykes catheter. Nonoliguric. Oral intake good. Vital signs are stable. General: No acute distress. HEENT: Head exam is unremarkable. On nasal cannula. LUNGS: Scattered rhonchi. HEART: Rate and Rhythm are regular. ABDOMEN: Nontender. EXTREMITITES: 2+ edema. Objective - Vital Signs Vital signs: Vital Signs Temp 97.5 F L 01/17/25 07:49 Pulse 62 01/17/25 08:06 Resp 15 01/17/25 07:49 BP 105/61 01/17/25 07:49 Pulse Ox 98 01/17/25 07:58 FiO2 40 01/12/25 18:27 Intake & Output 01/16/25 01/17/25 01/17/25 18:59 06:59 18:59 Intake Total 472 Output Total 900 700 Balance -428 -700 Weight 113 kg Intake: Oral 472 Output: Urine 900 700 Other: Voiding Method Indwelling Catheter Indwelling Catheter Indwelling Catheter # Voids 2 # Bowel Movements 1 - Labs CBC & Chem 7: 01/15/25 06:37 01/17/25 04:13 Labs: Abnormal Lab Results - Last 24 Hours (Table) 01/16/25 01/17/25 Range/Units 06:02 04:13 BUN 62.4 H 65.3 H (9.0-27.0) mg/dL Creatinine 2.6 H 2.9 H (0.6-1.5) mg/dL Est GFR (CKD-EPI) 24 L 21 L (>=60) BUN/Creatinine Ratio 24.00 H 22.52 H (12.00-20.00) Ratio Glucose 119 H 114 H (70-110) mg/dL Calcium 8.5 L 8.4 L (8.7-10.3) mg/dL Assessment and Plan Plan: Assessment: 1. Acute kidney injury secondary to ATN. Renal function worse with creatinine 2.9 today. No hydronephrosis noted on CT. 2. Chronic kidney disease stage IIIb with baseline creatinine near 1.5 secondary to nephrosclerosis. 3. A-fib with RVR now on oral meds. 4. Acute GI bleed status post blood transfusions this admission. Component of chronic kidney disease. Colonoscopy showed hemorrhoids and diverticulosis with no active bleeding. On Aranesp. 5. Volume overload. 6. Acute on chronic systolic CHF ejection fraction of 15 to 20% with moderate to severe pulmonary hypertension. 7. Hypokalemia from diuresis. Replaced. Better. 8. Hypomagnesemia from diuresis. On oral magnesium oxide. Improved. Plan: Maintain IV Lasix. Will benefit from SGLT2 inhibitor. UA from this admission suggestive of UTI. Avoid nephrotoxins. Continue to monitor renal function and urine output. Hold midodrine for systolic blood pressure greater than 110. Repeat labs in the morning.
--- NOTE | 2025-01-17 12:31 | P.PN ---
Subjective Progress Note Date: 01/17/25 89-year-old male patient with past medical history significant for coronary artery disease status post stenting 2021, ischemic cardiomyopathy with a EF 40 to 45%, history of CVA with left-sided residual deficits, hypertension, hyperlipidemia, hard of hearing, history of skin cancer who presented to ER with a complaint of blood in the stools. Patient was brought to the ER by EMS, was noted to have large bloody bowel movement, was complaining of dizziness, also complained of nausea and abdominal discomfort. Patient was afebrile on presentation, was tachycardic and hypotensive, initially was on on room air, later on required supplemental oxygen 2 L after IV fluids. WBCs 12.5, hemoglobin 5.7, came up to 7.4 after 3 units. Platelet 227. INR 1.3. Sodium 139, potassium 5.4, chloride 107, CO2 12, BUN 51, creatinine 2.03, GFR 30. Liver profile unremarkable. Chest x-ray showed small left pleural effusion with left basilar opacities, diffuse interstitial prominence. 01/07--patient was seen and examined today. Patient is afebrile, heart rate 91, respiratory rate 27, blood pressure 99/56, saturating 99%, currently on BiPAP with 30% FiO2. WBCs 12.1, hemoglobin 8.3, platelet 158. Sodium 143, potassium 4.9, BUN 59, creatinine 2.17. Troponin was 16.5, went up to 12.2. proBNP 11,600. Patient underwent colonoscopy today which showed normal-appearing colon from rectum to cecum with no evidence of colitis or colorectal neoplasia, no active GI bleed, scattered sigmoid diverticulosis. Grade 2 hemorrhoids. 01/08--patient initially presented to ED with GI bleed, transferred to ICU for GI bleed, hemorrhagic shock, requiring Levophed, underwent EGD and colonoscopy, showed diverticular disease and hemorrhoids, required 4 unit of packed RBCs, 2 units of fresh frozen plasma, 1 unit of platelets, DDAVP, no further bleeding at this point, hemoglobin is now stable. Remains on norepinephrine. On 4 L oxygen. Cardiology following for NSTEMI. Patient is afebrile, heart rate 92, respiratory rate 27, saturating 100% on 3 L. Blood pressure is soft 93/56. Patient currently on Levophed. Chest x-ray showed pleural effusion, CHF. Echocardiogram showed severe LV dysfunction with EF less than 20%, RV enlargement, moderate to severe pulmonary hypertension, reduced aortic valve excursion/opening. WBCs 8.5, hemoglobin 8.4, platelet 120. Sodium 139, potassium 4.2, chloride 102, CO2 24, BUN 60, creatinine 2.15. UA showed large leukocyte Estrace, RBCs WBCs. Patient is currently on Zosyn. ICU, nephrology, cardiology GI has been consulted. 01/09. Patient seen and examined. Currently states he is doing okay. Patient currently on dobutamine drip. Hemoglobin this morning is 7.3. 01/10. Patient seen and examined. Sitting upright in the bed. Discussed with him regarding goals of care, he wants her daughter to make a decision regarding CODE STATUS. Denies any chest pain. Gets short of breath on exertion /. Patient seen and examined. Blood work done this morning showedW6.3, hemoglobin 7.8, platelet count 94, sodium 135, Potassium 3.5, BUN 39, creatinine 1.78, glucose 115.Vital signs temperature afebrile, heart rate 91, respiration 22, blood pressure 9761, currently on 2 L of oxygen . Patient seen and examined. Blood work done showedWBC 9.8, hemoglobin 8.1, platelet count 89, sodium 135, potassium 4, BUN 35, creatinine 1.78. Patient continues to be on 2 L of oxygen. 01/14. Patient seen and examined. Currently sitting upright in the bed. No acute issues overnight. Currently on 2 L of oxygen 01/15 Patient seen and examined. Blood work this morning showed WBC 10, hemoglobin 8, platelet count 155, sodium 132, potassium 4.3, BUN 60, creatinine 2.19. Currently on oral Lasix 40 g twice a day. Nephrology increase the dose of midodrine 01/16/2025 Patient is evaluated today in follow up on the medical floor currently sitting up in the chair. He remains on IV lasix and has continued peripheral edema. Continues on oxygen via nasal cannula on 2L with saturations of 100%. Chest xray reveals overall similar examination with cardiomegaly, diffuse interstitial prominence with small bilateral pleural effusions with probable atelectasis. Findings suggest CHF exacerbation. Superimposed infectious process is not excluded. Sodium today 137, potassium 4.5, BUN 62.4, creatinine 2.6. 01/17/2025 Patient is evaluated today in follow up. He is up sitting the chair. He is off oxygen at this time however continues with significant lower extremity edema. Would recommend to ADOLFO wrap and discussed with patient the importance of elevating legs while sitting so they are not dependent. His labs today show a BUN of 65 and creatinine of 2.9. He remains on IV lasix 40 mg twice daily. REVIEW OF SYSTEMS: CONSTITUTIONAL: No fever, no malaise,. CARDIOVASCULAR: No chest pain, no palpitations, no syncope. PULMONARY: Reports shortness of breath and cough. GASTROINTESTINAL: No diarrhea, no nausea, no vomiting, no abdominal pain. NEUROLOGICAL: No headaches, no weakness, PHYSICAL EXAMINATION: GENERAL: The patient is alert and oriented x3, ill looking HEENT: Pupils are round and equally reacting to light. EOMI. No scleral icterus. No conjunctival pallor. Normocephalic, atraumatic. No pharyngeal erythema. No thyromegaly. CARDIOVASCULAR: S1 and S2 present. No murmurs, rubs, or gallops. PULMONARY: Diminished breath sounds at the bases bilaterally no wheezing or crackles. Scattered ronchi. ABDOMEN: Soft, nontender, nondistended, normoactive bowel sounds. No palpable organomegaly. MUSCULOSKELETAL: No joint swelling or deformity. EXTREMITIES: No cyanosis, clubbing, or pedal edema. Continues with 1-2+ pitting lower extremity edema. NEUROLOGICAL: Gross neurological examination did not reveal any focal deficits. 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 Hypertension Hyperlipidemia Hard of hearing History of CVA with left-sided weakness Acute hypoxic respiratory failure Fluid overload: Skin cancer: History of melanoma Osteoarthritis History of asthma Plan Monitor vital signs Monitor CBC Monitor CMP Continue telemetry monitoring Encourage use of incentive spirometer status post EGD showed no active GI bleed. Colonoscopy 01/07 negative for any active bleed, per GI likely to diverticular bleed which is stopped now. CT abdomen pelvismoderate bilateral pleural effusion, dependent airspace consolidation, abdominal ascites, dilated small bowel measuring up to 2.7 cm, atrophic kidneys, diverticulosis. echo showed EF less than 20%, decreased opening/excursion of aortic valve, moderate to severe pulmonary hypertension. Continue amiodarone 400 mg twice daily Change Protonix to oral Hold aspirin and Plavix No anticoagulation because of the GI Bleed. Hold antihypertensives Strict I's and O's, daily weights continue IV lasix 40 mg BID. Nephrology following Cardiology following Pulmonology following Patient is pending DC to [facility] when medically stable and insurance authorization has been submitted on Saturday. Dictation was produced using [employer] dictation software. please excuse any grammatical, word or spelling errors. The impression and plan of care has been dictated by Althea Post, Nurse Pr actitioner as directed. Dr. Michael MD I have performed a history and physical examination and medical decision making of this patient, discussed the same with the dictator, and agree with the dicta tors assessment and plan as written, documented as a scribe. Based on total visit time, I have performed more than 50% of this visit. Objective - Vital Signs Vital signs: Vital Signs Temp 97.5 F L 01/17/25 07:49 Pulse 62 01/17/25 08:06 Resp 15 01/17/25 07:49 BP 105/61 01/17/25 07:49 Pulse Ox 98 01/17/25 07:58 FiO2 40 01/12/25 18:27 Intake & Output 01/16/25 01/17/25 01/17/25 18:59 06:59 18:59 Intake Total 472 Output Total 900 700 Balance -428 -700 Weight 113 kg Intake: Oral 472 Output: Urine 900 700 Other: Voiding Method Indwelling Catheter Indwelling Catheter Indwelling Catheter # Voids 2 # Bowel Movements 1 - Labs CBC & Chem 7: 01/15/25 06:37 01/17/25 04:13 Labs: Abnormal Lab Results - Last 24 Hours (Table) 01/16/25 01/17/25 Range/Units 06:02 04:13 BUN 62.4 H 65.3 H (9.0-27.0) mg/dL Creatinine 2.6 H 2.9 H (0.6-1.5) mg/dL Est GFR (CKD-EPI) 24 L 21 L (>=60) BUN/Creatinine Ratio 24.00 H 22.52 H (12.00-20.00) Ratio Glucose 119 H 114 H (70-110) mg/dL Calcium 8.5 L 8.4 L (8.7-10.3) mg/dL Assessment and Plan Time with Patient: Less than 30
[2025-01-17 17:31] LABS: Magnesium 2.2 mg/dL (1.5-2.4)
[2025-01-18 09:21] LABS: HCT 26.8 % (39.6-50.0); HGB 7.5 g/dL (13.0-17.0); MCH 24.4 pg (27.0-32.0); Mean Platelet Volume 11.7 FL (9.5-12.2); NRBC Per 100 WBC 0 X 10*3/uL (0.00-0.01); Platelet Count 172 X 10*3/uL (140-440); RBC 3.08 X 10*6/uL (4.40-5.60); RDW 23.8 % (11.5-14.5); WBC 8.86 X 10*3/uL (4.50-10.00)
[2025-01-18 09:23] LABS: BUN/Creat Ratio 25.08 Ratio (12.00-20.00); Blood Urea Nitrogen 65.2 mg/dL (9.0-27.0); Calcium 8.5 mg/dL (8.7-10.3); Carbon Dioxide 28.2 mmol/L (21.6-31.8); Chloride 101 mmol/L (96-109); Glucose 120 mg/dL (70-110); Magnesium 2.1 mg/dL (1.5-2.4); Potassium 3.9 mmol/L (3.5-5.5); Sodium 141 mmol/L (135-145)
[2025-01-18 10:30] LABS: Basophils # (A) 0.03 X 10*3/uL (0.00-0.10); Basophils % (A) 0.3 %; Eosinophils # (A) 0.06 X 10*3/uL (0.04-0.35); Eosinophils % (A) 0.7 %; Lymphocytes # (A) 0.95 X 10*3/uL (0.90-5.00); Lymphocytes % (A) 10.7 %; Monocytes # (A) 0.66 X 10*3/uL (0.20-1.00); Monocytes % (A) 7.4 %; Neutrophils # (A) 7.11 X 10*3/uL (1.80-7.70); Neutrophils % (A) 80.3 %
[2025-01-18 10:31] LABS: Anisocytosis (M) 2+ (None Seen); Elliptocytes 2+ (None Seen); Hypochromasia (M) 2+ (None Seen)
--- NOTE | 2025-01-18 15:02 | P.PN ---
Subjective Patient is seen for follow-up for acute kidney injury. Underlying chronic kidney disease stage IIIb with baseline creatinine around 1.4 to 1.5 mg/dL. Renal function is slightly improved with serum creatinine down to 2.6 from 2.9 yesterday. No significant complaints today. Objective - Vital Signs Vital signs: Vital Signs Temp 98.2 F 01/18/25 14:51 Pulse 62 01/18/25 14:51 Resp 18 01/18/25 14:51 BP 95/52 01/18/25 14:51 Pulse Ox 96 01/18/25 14:51 FiO2 40 01/12/25 18:27 Intake & Output 01/17/25 01/18/25 01/18/25 18:59 06:59 18:59 Intake Total 118 236 Output Total 1500 1200 Balance -1382 -964 Weight 112 kg Intake: Oral 118 236 Output: Urine 1500 1200 Other: Voiding Method Indwelling Catheter Indwelling Catheter Indwelling Catheter # Voids 1 # Bowel Movements 2 1 - Exam Patient is awake, comfortable Examination of the heart S1 and S2 Examination of the lungs bilateral breath sounds are heard Abdomen is soft nontender Examination of lower extremities shows chronic skin changes, no significant edema - Labs CBC & Chem 7: 01/18/25 04:33 01/18/25 04:33 Labs: Abnormal Lab Results - Last 24 Hours (Table) 01/18/25 01/18/25 Range/Units 04:33 04:33 RBC 3.08 L (4.40-5.60) X 10*6/uL Hgb 7.5 L (13.0-17.0) g/dL Hct 26.8 L (39.6-50.0) % MCH 24.4 L (27.0-32.0) pg MCHC 28.0 L (32.0-37.0) g/dL RDW 23.8 H (11.5-14.5) % Immature Gran # 0.05 H (0.00-0.04) X 10*3/uL Hypochromasia (manual) 2+ A (None Seen) Anisocytosis (manual) 2+ A (None Seen) Elliptocytes 2+ A (None Seen) BUN 65.2 H (9.0-27.0) mg/dL Creatinine 2.6 H (0.6-1.5) mg/dL Est GFR (CKD-EPI) 24 L (>=60) BUN/Creatinine Ratio 25.08 H (12.00-20.00) Ratio Glucose 120 H (70-110) mg/dL Calcium 8.5 L (8.7-10.3) mg/dL Assessment and Plan Assessment: 1. Acute kidney injury secondary to ATN. Renal function slightly improved today with creatinine at 2.6 from 2.9 yesterday. Maintained on IV Lasix. No hydronephrosis noted on CT. 2. Chronic kidney disease stage IIIb with baseline creatinine near 1.5 secondary to nephrosclerosis. 3. A-fib with RVR now on oral meds. 4. Acute GI bleed status post blood transfusions this admission. Component of chronic kidney disease. Colonoscopy showed hemorrhoids and diverticulosis with no active bleeding. On Aranesp. 5. Volume overload. 6. Acute on chronic systolic CHF ejection fraction of 15 to 20% with moderate to severe pulmonary hypertension. 7. Hypokalemia from diuresis. Replaced. Better. 8. Hypomagnesemia from diuresis. On oral magnesium oxide. Improved Plan: Continue with IV Lasix Repeat labs in a.m. Continue with aranesp
[2025-01-19 09:04] LABS: BUN/Creat Ratio 25.62 Ratio (12.00-20.00); Blood Urea Nitrogen 61.5 mg/dL (9.0-27.0); Calcium 8.3 mg/dL (8.7-10.3); Carbon Dioxide 29.3 mmol/L (21.6-31.8); Chloride 101 mmol/L (96-109); Glucose 114 mg/dL (70-110); Potassium 3.6 mmol/L (3.5-5.5); Sodium 140 mmol/L (135-145)
--- NOTE | 2025-01-19 09:25 | P.PN ---
Subjective Progress Note Date: 01/18/25 89-year-old male patient with past medical history significant for coronary artery disease status post stenting 2021, ischemic cardiomyopathy with a EF 40 to 45%, history of CVA with left-sided residual deficits, hypertension, hyperlipidemia, hard of hearing, history of skin cancer who presented to ER with a complaint of blood in the stools. Patient was brought to the ER by EMS, was noted to have large bloody bowel movement, was complaining of dizziness, also complained of nausea and abdominal discomfort. Patient was afebrile on presentation, was tachycardic and hypotensive, initially was on on room air, later on required supplemental oxygen 2 L after IV fluids. WBCs 12.5, hemoglobin 5.7, came up to 7.4 after 3 units. Platelet 227. INR 1.3. Sodium 139, potassium 5.4, chloride 107, CO2 12, BUN 51, creatinine 2.03, GFR 30. Liver profile unremarkable. Chest x-ray showed small left pleural effusion with left basilar opacities, diffuse interstitial prominence. 01/07--patient was seen and examined today. Patient is afebrile, heart rate 91, respiratory rate 27, blood pressure 99/56, saturating 99%, currently on BiPAP with 30% FiO2. WBCs 12.1, hemoglobin 8.3, platelet 158. Sodium 143, potassium 4.9, BUN 59, creatinine 2.17. Troponin was 16.5, went up to 12.2. proBNP 11,600. Patient underwent colonoscopy today which showed normal-appearing colon from rectum to cecum with no evidence of colitis or colorectal neoplasia, no active GI bleed, scattered sigmoid diverticulosis. Grade 2 hemorrhoids. 01/08--patient initially presented to ED with GI bleed, transferred to ICU for GI bleed, hemorrhagic shock, requiring Levophed, underwent EGD and colonoscopy, showed diverticular disease and hemorrhoids, required 4 unit of packed RBCs, 2 units of fresh frozen plasma, 1 unit of platelets, DDAVP, no further bleeding at this point, hemoglobin is now stable. Remains on norepinephrine. On 4 L oxygen. Cardiology following for NSTEMI. Patient is afebrile, heart rate 92, respiratory rate 27, saturating 100% on 3 L. Blood pressure is soft 93/56. Patient currently on Levophed. Chest x-ray showed pleural effusion, CHF. Echocardiogram showed severe LV dysfunction with EF less than 20%, RV enlargement, moderate to severe pulmonary hypertension, reduced aortic valve excursion/opening. WBCs 8.5, hemoglobin 8.4, platelet 120. Sodium 139, potassium 4.2, chloride 102, CO2 24, BUN 60, creatinine 2.15. UA showed large leukocyte Estrace, RBCs WBCs. Patient is currently on Zosyn. ICU, nephrology, cardiology GI has been consulted. 01/09. Patient seen and examined. Currently states he is doing okay. Patient currently on dobutamine drip. Hemoglobin this morning is 7.3. 01/10. Patient seen and examined. Sitting upright in the bed. Discussed with him regarding goals of care, he wants her daughter to make a decision regarding CODE STATUS. Denies any chest pain. Gets short of breath on exertion /. Patient seen and examined. Blood work done this morning showedW6.3, hemoglobin 7.8, platelet count 94, sodium 135, Potassium 3.5, BUN 39, creatinine 1.78, glucose 115.Vital signs temperature afebrile, heart rate 91, respiration 22, blood pressure 9761, currently on 2 L of oxygen . Patient seen and examined. Blood work done showedWBC 9.8, hemoglobin 8.1, platelet count 89, sodium 135, potassium 4, BUN 35, creatinine 1.78. Patient continues to be on 2 L of oxygen. 01/14. Patient seen and examined. Currently sitting upright in the bed. No acute issues overnight. Currently on 2 L of oxygen 01/15 Patient seen and examined. Blood work this morning showed WBC 10, hemoglobin 8, platelet count 155, sodium 132, potassium 4.3, BUN 60, creatinine 2.19. Currently on oral Lasix 40 g twice a day. Nephrology increase the dose of midodrine 01/16/2025 Patient is evaluated today in follow up on the medical floor currently sitting up in the chair. He remains on IV lasix and has continued peripheral edema. Continues on oxygen via nasal cannula on 2L with saturations of 100%. Chest xray reveals overall similar examination with cardiomegaly, diffuse interstitial prominence with small bilateral pleural effusions with probable atelectasis. Findings suggest CHF exacerbation. Superimposed infectious process is not excluded. Sodium today 137, potassium 4.5, BUN 62.4, creatinine 2.6. 01/17/2025 Patient is evaluated today in follow up. He is up sitting the chair. He is off oxygen at this time however continues with significant lower extremity edema. Wo nancy recommend to ADOLFO wrap and discussed with patient the importance of elevating legs while sitting so they are not dependent. His labs today show a BUN of 65 and creatinine of 2.9. He remains on IV lasix 40 mg twice daily. 01/18/2025 Patient is seen in follow-up today with no acute overnight issues noted. Blood pressures on the softer side although maintained on high-dose Lasix per nephrology. Nephrology recommending oral Lasix on discharge with close outpatient follow-up. Plan is for patient to go to [facility] and currently awaiting insurance authorization. Patient's hemoglobin is 7.5 and will transfuse 1 unit and follow-up on repeat labs. Kidney functions continue to be elevated although slightly improved with a creatinine of 2.4 today. Social work is following and has submitted for insurance authorization which remains pending. Patient is afebrile with no reports of chest pain or shortness of breath. Patient has been tolerating diet and will continue current regimen. REVIEW OF SYSTEMS: CONSTITUTIONAL: No fever, no malaise,. CARDIOVASCULAR: No chest pain, no palpitations, no syncope. PULMONARY: Reports shortness of breath and cough. GASTROINTESTINAL: No diarrhea, no nausea, no vomiting, no abdominal pain. NEUROLOGICAL: No headaches, reports of generalized weakness PHYSICAL EXAMINATION: GENERAL: The patient is alert and oriented x3, ill looking, elderly appearing, obese HEENT: Pupils are round and equally reacting to light. EOMI. No scleral icterus. No conjunctival pallor. Normocephalic, atraumatic. No pharyngeal erythema. No thyromegaly. CARDIOVASCULAR: S1 and S2 present. No murmurs, rubs, or gallops. PULMONARY: Diminished breath sounds at the bases bilaterally no wheezing or crackles. Scattered ronchi. ABDOMEN: Soft, nontender, nondistended, normoactive bowel sounds. No palpable organomegaly. MUSCULOSKELETAL: No joint swelling or deformity. EXTREMITIES: No cyanosis, clubbing, or pedal edema. Continues with 1-2+ pitting lower extremity edema. NEUROLOGICAL: Gross neurological examination did not reveal any focal deficits. 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 Hypertension Hyperlipidemia Hard of hearing History of CVA with left-sided weakness Acute hypoxic respiratory failure History of skin cancer History of melanoma Osteoarthritis History of asthma Obesity with a BMI of 32.7 GI prophylaxis DVT prophylaxis Full code Plan: Patient is status post EGD showing no active bleed, colonoscopy was negative for bleed likely diverticular which has stopped. Hemoglobin is 7.5 today and will transfuse 1 unit of PRBC Social work following as plans will be to go to [facility], currently awaiting insurance authorization Nephrology following maintained on IV Lasix and will transition to oral Lasix 60 mg twice daily with close outpatient follow-up and repeat labs Encourage incentive parameter use at least 10 times every hour while awake No further bleeding noted recommending outpatient follow-up with GI and general surgery Patient to follow-up with cardiology outpatient and will continue current medications Continuing to hold anticoagulation secondary to GI bleed and low hemoglobin. Patient to follow-up outpatient regarding resuming Currently awaiting insurance authorization for [facility] with possible discharge planning in the next 24 to 48 hours Due to multiple complex medical issues, overall prognosis is guarded The impression and plan of care has been dictated by Leeanne Castanon, Nurse Practitioner as directed. Dr. Jerry MD I have performed a history and physical examination and medical decision making of this patient, discussed the same with the dictator, and agree with the dictators assessment and plan as written, documented as a scribe. Based on total visit time, I have performed more than 50% of this visit. Objective - Vital Signs Vital signs: Vital Signs Temp 97.6 F 01/18/25 07:54 Pulse 70 01/18/25 08:53 Resp 18 01/18/25 07:54 BP 110/65 01/18/25 07:54 Pulse Ox 95 01/18/25 08:43 FiO2 40 01/12/25 18:27 Intake & Output 01/17/25 01/18/25 01/18/25 18:59 06:59 18:59 Intake Total 118 118 Output Total 1500 Balance -1382 118 Weight 112 kg Intake: Oral 118 118 Output: Urine 1500 Other: Voiding Method Indwelling Catheter Indwelling Catheter Indwelling Catheter # Voids 1 # Bowel Movements 2 1 - Labs CBC & Chem 7: 01/18/25 04:33 01/19/25 04:20 Labs: Abnormal Lab Results - Last 24 Hours (Table) 01/18/25 01/18/25 Range/Units 04:33 04:33 RBC 3.08 L (4.40-5.60) X 10*6/uL Hgb 7.5 L (13.0-17.0) g/dL Hct 26.8 L (39.6-50.0) % MCH 24.4 L (27.0-32.0) pg MCHC 28.0 L (32.0-37.0) g/dL RDW 23.8 H (11.5-14.5) % Immature Gran # 0.05 H (0.00-0.04) X 10*3/uL Hypochromasia (manual) 2+ A (None Seen) Anisocytosis (manual) 2+ A (None Seen) Elliptocytes 2+ A (None Seen) BUN 65.2 H (9.0-27.0) mg/dL Creatinine 2.6 H (0.6-1.5) mg/dL Est GFR (CKD-EPI) 24 L (>=60) BUN/Creatinine Ratio 25.08 H (12.00-20.00) Ratio Glucose 120 H (70-110) mg/dL Calcium 8.5 L (8.7-10.3) mg/dL
[2025-01-19 09:34] LABS: HCT 27.1 % (39.6-50.0); MCH 25.3 pg (27.0-32.0); MCHC 29.5 g/dL (32.0-37.0); MCV 85.8 FL (80.0-97.0); Mean Platelet Volume 12.2 FL (9.5-12.2); NRBC Per 100 WBC 0 X 10*3/uL (0.00-0.01); Platelet Count 173 X 10*3/uL (140-440); RBC 3.16 X 10*6/uL (4.40-5.60); RDW 22.5 % (11.5-14.5); WBC 8.74 X 10*3/uL (4.50-10.00)
--- NOTE | 2025-01-19 17:52 | P.PN ---
Subjective Patient is seen for follow-up for acute kidney injury. Underlying chronic kidney disease stage IIIb with baseline creatinine around 1.4 to 1.5 mg/dL. Renal function is slightly improved with serum creatinine down to 2.4 from 2.6 yesterday. Patient however continues to have significant lower extremity swelling. He is also short of breath. Currently maintained on IV Lasix. Ejection fraction 10 to 15% Objective - Vital Signs Vital signs: Vital Signs Temp 96.2 F L 01/19/25 12:45 Pulse 62 01/19/25 16:40 Resp 18 01/19/25 12:45 BP 83/48 01/19/25 16:40 Pulse Ox 97 01/19/25 16:40 FiO2 40 01/12/25 18:27 Intake & Output 01/18/25 01/19/25 01/19/25 18:59 06:59 18:59 Intake Total 236 310 236 Output Total 1800 1550 700 Balance -1564 -1240 -464 Weight 109.5 kg Intake: Oral 236 236 Blood Product 0 310 Rc As-1 Unit 0 310 [id number] Output: Urine 1800 1550 700 Other: Voiding Method Indwelling Catheter Indwelling Catheter Indwelling Catheter # Bowel Movements 1 1 - Exam Patient is awake, comfortable Examination of the heart S1 and S2 Examination of the lungs bilateral breath sounds are heard Abdomen is soft nontender Examination of lower extremities shows chronic skin changes, 2+ edema - Labs CBC & Chem 7: 01/19/25 04:20 01/19/25 04:20 Labs: Abnormal Lab Results - Last 24 Hours (Table) 01/18/25 01/19/25 01/19/25 Range/Units 16:48 04:20 04:20 RBC 3.16 L (4.40-5.60) X 10*6/uL Hgb 8.0 L (13.0-17.0) g/dL Hct 27.1 L (39.6-50.0) % MCH 25.3 L (27.0-32.0) pg MCHC 29.5 L (32.0-37.0) g/dL RDW 22.5 H (11.5-14.5) % BUN 61.5 H (9.0-27.0) mg/dL Creatinine 2.4 H (0.6-1.5) mg/dL Est GFR (CKD-EPI) 26 L (>=60) BUN/Creatinine Ratio 25.62 H (12.00-20.00) Ratio Glucose 114 H (70-110) mg/dL Calcium 8.3 L (8.7-10.3) mg/dL Crossmatch See Detail Assessment and Plan Assessment: 1. Acute kidney injury secondary to ATN. Renal function slightly improved today with creatinine at 2.4 from 2.6 yesterday. Maintained on IV Lasix. No hy dronephrosis noted on CT. patient remains volume overloaded. Discussed inotropic agents 2. Chronic kidney disease stage IIIb with baseline creatinine near 1.5 secondary to nephrosclerosis. 3. A-fib with RVR now on oral meds. 4. Acute GI bleed status post blood transfusions this admission. Component of chronic kidney disease. Colonoscopy showed hemorrhoids and diverticulosis with no active bleeding. On Aranesp. 5. Volume overload. 6. Acute on chronic systolic CHF ejection fraction of 15 to 20% with moderate to severe pulmonary hypertension. 7. Hypokalemia from diuresis. Replaced. Better. 8. Hypomagnesemia from diuresis. On oral magnesium oxide. Improved Plan: Continue with IV Lasix, increased dose Discussed with primary service regarding inotropic agents. Reconsult cardiology for possibly starting dobutamine Repeat labs in a.m. Continue with aranesp
[2025-01-19] MEDS: SENNOSIDES-DOCUSATE SODIUM 1 EACH TAB PO PRN (17:58)
[2025-01-19] MEDS: FUROSEMIDE 10 MG/ML 4 ML VIAL IV STA (21:40)
--- NOTE | 2025-01-20 05:28 | P.PN ---
Subjective Progress Note Date: 01/19/25 89-year-old male patient with past medical history significant for coronary artery disease status post stenting 2021, ischemic cardiomyopathy with a EF 40 to 45%, history of CVA with left-sided residual deficits, hypertension, hyperlipidemia, hard of hearing, history of skin cancer who presented to ER with a complaint of blood in the stools. Patient was brought to the ER by EMS, was noted to have large bloody bowel movement, was complaining of dizziness, also complained of nausea and abdominal discomfort. Patient was afebrile on presentation, was tachycardic and hypotensive, initially was on on room air, later on required supplemental oxygen 2 L after IV fluids. WBCs 12.5, hemoglobin 5.7, came up to 7.4 after 3 units. Platelet 227. INR 1.3. Sodium 139, potassium 5.4, chloride 107, CO2 12, BUN 51, creatinine 2.03, GFR 30. Liver profile unremarkable. Chest x-ray showed small left pleural effusion with left basilar opacities, diffuse interstitial prominence. 01/07--patient was seen and examined today. Patient is afebrile, heart rate 91, respiratory rate 27, blood pressure 99/56, saturating 99%, currently on BiPAP with 30% FiO2. WBCs 12.1, hemoglobin 8.3, platelet 158. Sodium 143, potassium 4.9, BUN 59, creatinine 2.17. Troponin was 16.5, went up to 12.2. proBNP 11,600. Patient underwent colonoscopy today which showed normal-appearing colon from rectum to cecum with no evidence of colitis or colorectal neoplasia, no active GI bleed, scattered sigmoid diverticulosis. Grade 2 hemorrhoids. 01/08--patient initially presented to ED with GI bleed, transferred to ICU for GI bleed, hemorrhagic shock, requiring Levophed, underwent EGD and colonoscopy, showed diverticular disease and hemorrhoids, required 4 unit of packed RBCs, 2 units of fresh frozen plasma, 1 unit of platelets, DDAVP, no further bleeding at this point, hemoglobin is now stable. Remains on norepinephrine. On 4 L oxygen. Cardiology following for NSTEMI. Patient is afebrile, heart rate 92, respiratory rate 27, saturating 100% on 3 L. Blood pressure is soft 93/56. Patient currently on Levophed. Chest x-ray showed pleural effusion, CHF. Echocardiogram showed severe LV dysfunction with EF less than 20%, RV enlargement, moderate to severe pulmonary hypertension, reduced aortic valve excursion/opening. WBCs 8.5, hemoglobin 8.4, platelet 120. Sodium 139, potassium 4.2, chloride 102, CO2 24, BUN 60, creatinine 2.15. UA showed large leukocyte Estrace, RBCs WBCs. Patient is currently on Zosyn. ICU, nephrology, cardiology GI has been consulted. 01/09. Patient seen and examined. Currently states he is doing okay. Patient currently on dobutamine drip. Hemoglobin this morning is 7.3. 01/10. Patient seen and examined. Sitting upright in the bed. Discussed with him regarding goals of care, he wants her daughter to make a decision regarding CODE STATUS. Denies any chest pain. Gets short of breath on exertion /. Patient seen and examined. Blood work done this morning showedW6.3, hemoglobin 7.8, platelet count 94, sodium 135, Potassium 3.5, BUN 39, creatinine 1.78, glucose 115.Vital signs temperature afebrile, heart rate 91, respiration 22, blood pressure 9761, currently on 2 L of oxygen . Patient seen and examined. Blood work done showedWBC 9.8, hemoglobin 8.1, platelet count 89, sodium 135, potassium 4, BUN 35, creatinine 1.78. Patient continues to be on 2 L of oxygen. 01/14. Patient seen and examined. Currently sitting upright in the bed. No acute issues overnight. Currently on 2 L of oxygen 01/15 Patient seen and examined. Blood work this morning showed WBC 10, hemoglobin 8, platelet count 155, sodium 132, potassium 4.3, BUN 60, creatinine 2.19. Currently on oral Lasix 40 g twice a day. Nephrology increase the dose of midodrine 01/16/2025 Patient is evaluated today in follow up on the medical floor currently sitting up in the chair. He remains on IV lasix and has continued peripheral edema. Continues on oxygen via nasal cannula on 2L with saturations of 100%. Chest xray reveals overall similar examination with cardiomegaly, diffuse interstitial prominence with small bilateral pleural effusions with probable atelectasis. Findings suggest CHF exacerbation. Superimposed infectious process is not excluded. Sodium today 137, potassium 4.5, BUN 62.4, creatinine 2.6. 01/17/2025 Patient is evaluated today in follow up. He is up sitting the chair. He is off oxygen at this time however continues with significant lower extremity edema. Wo nancy recommend to ADOLFO wrap and discussed with patient the importance of elevating legs while sitting so they are not dependent. His labs today show a BUN of 65 and creatinine of 2.9. He remains on IV lasix 40 mg twice daily. 01/18/2025 Patient is seen in follow-up today with no acute overnight issues noted. Blood pressures on the softer side although maintained on high-dose Lasix per nephrology. Nephrology recommending oral Lasix on discharge with close outpatient follow-up. Plan is for patient to go to [facility] and currently awaiting insurance authorization. Patient's hemoglobin is 7.5 and will transfuse 1 unit and follow-up on repeat labs. Kidney functions continue to be elevated although slightly improved with a creatinine of 2.4 today. Social work is following and has submitted for insurance authorization which remains pending. Patient is afebrile with no reports of chest pain or shortness of breath. Patient has been tolerating diet and will continue current regimen. 01/19/2025 Patient is seen in follow-up this morning with nephrology following. Patient is continued on Lasix although kidney functions are worsening and 2.6 today. Patient continues to have significant lower extremity swelling 2+ pitting and also noted to have multiple blisters of the lower extremities that are intact although concerns with continued volume overload. Patient continues on high- dose Lasix and discussed with nephrology will reconsult cardiology as patient may benefit from dobutamine. Patient is afebrile with no reports of chest pain although continues to report shortness of breath. Plan is for patient to go to [facility] although continuing to await insurance authorization. Patient's hemoglobin is 8.0 status post 1 unit of PRBC yesterday with no active bleeding noted. REVIEW OF SYSTEMS: CONSTITUTIONAL: No fever, no malaise,. CARDIOVASCULAR: No chest pain, no palpitations, no syncope. PULMONARY: Reports continued shortness of breath GASTROINTESTINAL: No diarrhea, no nausea, no vomiting, no abdominal pain. NEUROLOGICAL: No headaches, reports of generalized weakness PHYSICAL EXAMINATION: GENERAL: The patient is alert and oriented x 23, ill looking, elderly appeari ng, obese HEENT: Pupils are round and equally reacting to light. EOMI. No scleral icterus. No conjunctival pallor. Normocephalic, atraumatic. No pharyngeal erythema. No thyromegaly. CARDIOVASCULAR: S1 and S2 present. No murmurs, rubs, or gallops. PULMONARY: Diminished breath sounds at the bases bilaterally no wheezing or crackles. Scattered ronchi. ABDOMEN: Soft, nontender, nondistended, normoactive bowel sounds. No palpable organomegaly. MUSCULOSKELETAL: No joint swelling or deformity. EXTREMITIES: No cyanosis, clubbing, or pedal edema. Continues with 1-2+ pitting lower extremity edema. NEUROLOGICAL: Gross neurological examination did not reveal any focal deficits. SKIN: Hyperkeratotic growth seen on the left side of neck, growth also seen on both ears, blisters noted of bilateral lower extremities that are intact with no redness or purulence noted. 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 Hypertension Hyperlipidemia Hard of hearing History of CVA with left-sided weakness Acute hypoxic respiratory failure History of skin cancer History of melanoma Osteoarthritis History of asthma Obesity with a BMI of 32.7 GI prophylaxis DVT prophylaxis Full code Plan: Patient is status post EGD showing no active bleed, colonoscopy was negative for bleed likely diverticular which has stopped. Hemoglobin was 7.5 yesterday and given a unit of PRBC and hemoglobin is 8.0 today Social work following as plans will be to go to [facility], currently awaiting insurance authorization Nephrology following maintained on IV Lasix and will transition to oral Lasix 60 mg twice daily with close outpatient follow-up and repeat labs Patient continues with significant lower extremity swelling 2+ pitting with some blisters noted and not ambulatory very much I discussed further with nephrology and will reconsult cardiology and appreciate input and recommendations. Patient may benefit from dobutamine Encourage incentive parameter use at least 10 times every hour while awake No further bleeding noted recommending outpatient follow-up with GI and general surgery Continuing to hold anticoagulation secondary to GI bleed and low hemoglobin. Patient to follow-up outpatient regarding resuming Currently awaiting insurance authorization for [facility] Due to multiple complex medical issues, overall prognosis is guarded The impression and plan of care has been dictated by Leeanne Castanon, Nurse Practitioner as directed. Dr. Jerry MD I have performed a history and physical examination and medical decision making of this patient, discussed the same with the dictator, and agree with the dictators assessment and plan as written, documented as a scribe. Based on total visit time, I have performed more than 50% of this visit. Objective - Vital Signs Vital signs: Vital Signs Temp 98.2 F 01/20/25 02:16 Pulse 71 01/20/25 02:16 Resp 14 01/20/25 02:16 BP 103/56 01/20/25 02:16 Pulse Ox 96 01/20/25 02:16 FiO2 40 01/12/25 18:27 Intake & Output 01/19/25 01/19/25 01/20/25 06:59 18:59 06:59 Intake Total 310 354 Output Total 8904 676 5824 Balance -1240 -346 -1800 Weight 109.5 kg Intake: Oral 354 Blood Product 310 Rc As-1 Unit 310 [id number] Output: Urine 8081 812 2950 Other: Voiding Method Indwelling Catheter Indwelling Catheter Indwelling Catheter # Bowel Movements 1 - Labs CBC & Chem 7: 01/19/25 04:20 01/19/25 04:20 Labs: Abnormal Lab Results - Last 24 Hours (Table) 01/19/25 01/19/25 Range/Units 04:20 04:20 RBC 3.16 L (4.40-5.60) X 10*6/uL Hgb 8.0 L (13.0-17.0) g/dL Hct 27.1 L (39.6-50.0) % MCH 25.3 L (27.0-32.0) pg MCHC 29.5 L (32.0-37.0) g/dL RDW 22.5 H (11.5-14.5) % BUN 61.5 H (9.0-27.0) mg/dL Creatinine 2.4 H (0.6-1.5) mg/dL Est GFR (CKD-EPI) 26 L (>=60) BUN/Creatinine Ratio 25.62 H (12.00-20.00) Ratio Glucose 114 H (70-110) mg/dL Calcium 8.3 L (8.7-10.3) mg/dL
[2025-01-20 08:29] LABS: Basophils # (A) 0.03 X 10*3/uL (0.00-0.10); Basophils % (A) 0.4 %; Eosinophils # (A) 0.07 X 10*3/uL (0.04-0.35); Eosinophils % (A) 0.9 %; HCT 27.6 % (39.6-50.0); HGB 8.1 g/dL (13.0-17.0); Lymphocytes # (A) 1.14 X 10*3/uL (0.90-5.00); Lymphocytes % (A) 14.1 %; MCH 25.1 pg (27.0-32.0); MCHC 29.3 g/dL (32.0-37.0); MCV 85.4 FL (80.0-97.0); Mean Platelet Volume 11.1 FL (9.5-12.2); Monocytes # (A) 0.53 X 10*3/uL (0.20-1.00); Monocytes % (A) 6.6 %; NRBC Per 100 WBC 0 X 10*3/uL (0.00-0.01); Neutrophils # (A) 6.27 X 10*3/uL (1.80-7.70); Neutrophils % (A) 77.6 %; Platelet Count 171 X 10*3/uL (140-440); RBC 3.23 X 10*6/uL (4.40-5.60); RDW 22.8 % (11.5-14.5); WBC 8.07 X 10*3/uL (4.50-10.00)
[2025-01-20 08:52] LABS: ALT 33 U/L (10-49); AST 51 U/L (14-35); Albumin 2.8 g/dL (3.8-4.9); Albumin/Globulin Ratio 0.67 Ratio (1.60-3.17); Alkaline Phosphatase 158 U/L (41-126); BUN/Creat Ratio 25.61 Ratio (12.00-20.00); Blood Urea Nitrogen 58.9 mg/dL (9.0-27.0); Calcium 8.6 mg/dL (8.7-10.3); Carbon Dioxide 29.8 mmol/L (21.6-31.8); Chloride 102 mmol/L (96-109); Globulin 4.2 g/dL (1.6-3.3); Glucose 119 mg/dL (70-110); Magnesium 2.1 mg/dL (1.5-2.4); Potassium 3.7 mmol/L (3.5-5.5); Sodium 142 mmol/L (135-145); Total Bilirubin 0.5 mg/dL (0.3-1.2)
[2025-01-20] MEDS: FUROSEMIDE 10 MG/ML 10 ML VIAL IV SCH (10:02)
--- NOTE | 2025-01-20 10:36 | P.PN ---
Subjective Progress Note Date: 01/20/25 This is an 84-year-old male patient of Dr. Kerr with past medical history of coronary artery disease status post PCI of the RCA, hypertension, hyperlipidemia, asthma, prior stroke. Patient has been hospitalized since 01/06 and initially presented with acute lower GI bleed with severe anemia along with hemorrhagic shock. Patient was initially seen by cardiology for atrial and ventricular ectopy and patient was given bicarb, calcium gluconate and magnesium at that time. He had an elevated troponin in the 12 range. Patient was treated for A-fib with RVR and started on amiodarone. Subsequently, cardiology signed off the case. We have been asked to reevaluate the patient for CHF with worsening kidney function and need for dobutamine. His echocardiogram on this admission revealed EF of 10 to 15%. Patient has significant lower extremity edema, shortness of breath and has been on IV Lasix without significant improvement. Patient is followed by nephrology with recommendations for dobutamine. Blood pressure 97/66, heart rate 63, pulse ox 91% on room air. Repeat blood work reveals BUN 58 and creatinine 2.3. Telemetry is atrial fibrillation with controlled rate. Physical examination: Gen: This is an 84-year-old male in no acute distress VS: reviewed LUNGS: Good air entry bilaterally. No intercostal retractions. HEART: Irregular rhythm, first and second heart sounds. ABDOMEN: Soft No tenderness. EXTREMITIES: Significant 3+ lower extremity edema bilaterally. Assessment: Persistent atrial fibrillation with controlled ventricular rate Acute GI bleed with acute blood loss anemia Hemorrhagic shock, cardiogenic shock Acute systolic heart failure with component of stress-induced cardiomyopathy NSTEMI type II History of coronary artery disease status post PCI of the RCA residual circumflex [employer] and left main and LAD disease Acute kidney injury Chronic kidney disease stage IIIb Ischemic cardiomyopathy with previous EF of 40 to 45% Moderate to severe pulmonary hypertension Hypertension Hyperlipidemia Remote history of tobacco use History of stroke Plan: Echocardiogram on this admission revealed EF of 15 to 20%, moderate to severe pulmonary hypertension, reduced aortic valve excursion opening in the setting of severe cardiomyopathy. Continue patient on aspirin 81 mg daily, metoprolol succinate 12.5 mg twice daily Diuretics per nephrology Reduce amiodarone to 200 mg twice daily Start patient on dobutamine at 2.5 mics and increase to 5 mics after 10 minutes Transfer patient [facility]. Patient is not on anticoagulation due to GI bleed Further recommendations as patient progresses. Nurse practitioner note has been reviewed, I agree with documented findings and plan of care. Patient was seen and examined. Objective - Vital Signs Vital signs: Vital Signs Temp 97.5 F L 01/20/25 07:29 Pulse 63 01/20/25 07:29 Resp 15 01/20/25 07:29 BP 97/66 01/20/25 07:29 Pulse Ox 91 L 01/20/25 07:29 FiO2 40 01/12/25 18:27 Intake & Output 01/19/25 01/20/25 01/20/25 18:59 06:59 18:59 Intake Total 354 Output Total 700 1800 Balance -346 -1800 Weight 112.5 kg Intake: Oral 354 Output: Urine 700 1800 Other: Voiding Method Indwelling Catheter Indwelling Catheter # Bowel Movements 1 - Labs CBC & Chem 7: 01/20/25 04:59 01/20/25 04:59 Labs: Abnormal Lab Results - Last 24 Hours (Table) 01/20/25 01/20/25 Range/Units 04:59 04:59 RBC 3.23 L (4.40-5.60) X 10*6/uL Hgb 8.1 L (13.0-17.0) g/dL Hct 27.6 L (39.6-50.0) % MCH 25.1 L (27.0-32.0) pg MCHC 29.3 L (32.0-37.0) g/dL RDW 22.8 H (11.5-14.5) % BUN 58.9 H (9.0-27.0) mg/dL Creatinine 2.3 H (0.6-1.5) mg/dL Est GFR (CKD-EPI) 27 L (>=60) BUN/Creatinine Ratio 25.61 H (12.00-20.00) Ratio Glucose 119 H (70-110) mg/dL Calcium 8.6 L (8.7-10.3) mg/dL AST 51 H (14-35) U/L Alkaline Phosphatase 158 H (41-126) U/L Albumin 2.8 L (3.8-4.9) g/dL Globulin 4.2 H (1.6-3.3) g/dL Albumin/Globulin Ratio 0.67 L (1.60-3.17) Ratio
--- NOTE | 2025-01-20 11:13 | XR ---
EXAMINATION TYPE: XR chest 1V portable DATE OF EXAM: 01/20/2025 11:08 AM COMPARISON: 01/16/2025 CLINICAL INDICATION: Male, 84 years old with history of shortness of breath, TECHNIQUE: XR chest 1V portable views of the chest are obtained. FINDINGS: Demonstrated are scattered senescent parenchymal change. Increasing pulmonary venous congestion with scattered infiltrates and pleural effusion suspicious for congestive failure. Underlying pneumonia not excluded. Correlate clinically. Hilar and mediastinal structures are within normal limits. Degenerative changes are seen of the dorsal spine. IMPRESSION: 1. Increasing pulmonary venous congestion with scattered infiltrates and pleural effusion suspicious for congestive failure. Underlying pneumonia not excluded. Correlate clinically. [facility], , 01/20/2025 11:11 AM
--- NOTE | 2025-01-20 11:30 | P.PN ---
Subjective Patient is seen for follow-up for acute kidney injury. Underlying chronic kidney disease stage IIIb with baseline creatinine around 1.4 to 1.5 mg/dL. Renal function is slightly improved with serum creatinine down to 2.3 from peak of 2.9 Patient however continues to have significant lower extremity swelling. He is also short of breath. Discussed with cardiology regarding starting dobutamine. Lasix dose was increased yesterday. Objective - Vital Signs Vital signs: Vital Signs Temp 97.5 F L 01/20/25 07:29 Pulse 58 L 01/20/25 11:25 Resp 15 01/20/25 09:56 BP 98/63 01/20/25 11:15 Pulse Ox 97 01/20/25 11:25 FiO2 40 01/12/25 18:27 Intake & Output 01/19/25 01/20/25 01/20/25 18:59 06:59 18:59 Intake Total 354 Output Total 700 1800 Balance -346 -1800 Weight 112.5 kg Intake: Oral 354 Output: Urine 700 1800 Other: Voiding Method Indwelling Catheter Indwelling Catheter Indwelling Catheter # Bowel Movements 1 - Exam Patient is awake, comfortable Examination of the heart S1 and S2 Examination of the lungs bilateral breath sounds are heard Abdomen is soft nontender Examination of lower extremities shows chronic skin changes, 2+ edema - Labs CBC & Chem 7: 01/20/25 04:59 01/20/25 04:59 Labs: Abnormal Lab Results - Last 24 Hours (Table) 01/20/25 01/20/25 Range/Units 04:59 04:59 RBC 3.23 L (4.40-5.60) X 10*6/uL Hgb 8.1 L (13.0-17.0) g/dL Hct 27.6 L (39.6-50.0) % MCH 25.1 L (27.0-32.0) pg MCHC 29.3 L (32.0-37.0) g/dL RDW 22.8 H (11.5-14.5) % BUN 58.9 H (9.0-27.0) mg/dL Creatinine 2.3 H (0.6-1.5) mg/dL Est GFR (CKD-EPI) 27 L (>=60) BUN/Creatinine Ratio 25.61 H (12.00-20.00) Ratio Glucose 119 H (70-110) mg/dL Calcium 8.6 L (8.7-10.3) mg/dL AST 51 H (14-35) U/L Alkaline Phosphatase 158 H (41-126) U/L Albumin 2.8 L (3.8-4.9) g/dL Globulin 4.2 H (1.6-3.3) g/dL Albumin/Globulin Ratio 0.67 L (1.60-3.17) Ratio Assessment and Plan Assessment: 1. Acute kidney injury secondary to ATN. Renal function slightly improved today with creatinine at 2.3 today. Maintained on IV Lasix. No hydronephrosis noted on CT. patient remains volume overloaded. Patient will be started on dobutamine due to persistent volume overload 2. Chronic kidney disease stage IIIb with baseline creatinine near 1.5 secondary to nephrosclerosis. 3. A-fib with RVR now on oral meds. 4. Acute GI bleed status post blood transfusions this admission. Component of chronic kidney disease. Colonoscopy showed hemorrhoids and diverticulosis with no active bleeding. On Aranesp. 5. Volume overload. 6. Acute on chronic systolic CHF ejection fraction of 15 to 20% with moderate to severe pulmonary hypertension. 7. Hypokalemia from diuresis. Replaced. Better. 8. Hypomagnesemia from diuresis. On oral magnesium oxide. Improved Plan: Continue with increased dose of IV Lasix Dobutamine to be started today Continue with aranesp Repeat labs in a.m.
[2025-01-20 15:04] LABS: Glucose,Whole Blood 174 mg/dL (70-110)
[2025-01-20] MEDS: DOBUTamine DRIP 500 MG in DEXTROSE/WATER 1 250ML.BAG IV SCH (15:19)
[2025-01-20 15:56] LABS: Influenza A Not Detected (Not Detectd); Influenza B Not Detected (Not Detectd); RSV Not Detected (Not Detectd)
[2025-01-20] MEDS: AMIODARONE 200 MG TAB PO SCH (19:40)
[2025-01-20] MEDS: ACETAMINOPHEN TAB 325 MG TAB PO PRN (19:40)
[2025-01-20] MEDS: POTASSIUM BICARBONATE/CIT AC 20 MEQ TABLET.EFF NG-TUBE SCH (21:13)
[2025-01-21 03:46] LABS: Anisocytosis Moderate; HCT 27.2 % (39.0-53.0); HGB 7.9 gm/dL (13.0-17.5); Hypochromasia Marked; MCH 25.2 pg (25.0-35.0); MCV 86.9 fL (80.0-100.0); Mean Platelet Volume 9.7; Platelet Count 158 k/uL (150-450); Poikilocytosis Slight; RBC 3.13 m/uL (4.30-5.90); RDW 20.8 % (11.5-15.5); WBC 5.5 k/uL (3.8-10.6)
[2025-01-21 04:16] LABS: African American GFR (CKD) 32 (>60 ml/min/1.73 sqM); Anion Gap 8 mmol/L; Blood Urea Nitrogen 65 mg/dL (9-20); Calcium 8.3 mg/dL (8.4-10.2); Carbon Dioxide 32 mmol/L (22-30); Chloride 96 mmol/L (98-107); Glucose 127 mg/dL (74-99); Non-African American GFR(CKD) 27 (>60 ml/min/1.73 sqM); Potassium 3.7 mmol/L (3.5-5.1); Sodium 136 mmol/L (137-145)
[2025-01-21] MEDS: POTASSIUM BICARBONATE/CIT AC 20 MEQ TABLET.EFF NG-TUBE SCH (04:53)
--- NOTE | 2025-01-21 05:34 | P.PN ---
Subjective Progress Note Date: 01/20/25 89-year-old male patient with past medical history significant for coronary artery disease status post stenting 2021, ischemic cardiomyopathy with a EF 40 to 45%, history of CVA with left-sided residual deficits, hypertension, hyperlipidemia, hard of hearing, history of skin cancer who presented to ER with a complaint of blood in the stools. Patient was brought to the ER by EMS, was noted to have large bloody bowel movement, was complaining of dizziness, also complained of nausea and abdominal discomfort. Patient was afebrile on presentation, was tachycardic and hypotensive, initially was on on room air, later on required supplemental oxygen 2 L after IV fluids. WBCs 12.5, hemoglobin 5.7, came up to 7.4 after 3 units. Platelet 227. INR 1.3. Sodium 139, potassium 5.4, chloride 107, CO2 12, BUN 51, creatinine 2.03, GFR 30. Liver profile unremarkable. Chest x-ray showed small left pleural effusion with left basilar opacities, diffuse interstitial prominence. 01/07--patient was seen and examined today. Patient is afebrile, heart rate 91, respiratory rate 27, blood pressure 99/56, saturating 99%, currently on BiPAP with 30% FiO2. WBCs 12.1, hemoglobin 8.3, platelet 158. Sodium 143, potassium 4.9, BUN 59, creatinine 2.17. Troponin was 16.5, went up to 12.2. proBNP 11,600. Patient underwent colonoscopy today which showed normal-appearing colon from rectum to cecum with no evidence of colitis or colorectal neoplasia, no active GI bleed, scattered sigmoid diverticulosis. Grade 2 hemorrhoids. 01/08--patient initially presented to ED with GI bleed, transferred to ICU for GI bleed, hemorrhagic shock, requiring Levophed, underwent EGD and colonoscopy, showed diverticular disease and hemorrhoids, required 4 unit of packed RBCs, 2 units of fresh frozen plasma, 1 unit of platelets, DDAVP, no further bleeding at this point, hemoglobin is now stable. Remains on norepinephrine. On 4 L oxygen. Cardiology following for NSTEMI. Patient is afebrile, heart rate 92, respiratory rate 27, saturating 100% on 3 L. Blood pressure is soft 93/56. Patient currently on Levophed. Chest x-ray showed pleural effusion, CHF. Echocardiogram showed severe LV dysfunction with EF less than 20%, RV enlargement, moderate to severe pulmonary hypertension, reduced aortic valve excursion/opening. WBCs 8.5, hemoglobin 8.4, platelet 120. Sodium 139, potassium 4.2, chloride 102, CO2 24, BUN 60, creatinine 2.15. UA showed large leukocyte Estrace, RBCs WBCs. Patient is currently on Zosyn. ICU, nephrology, cardiology GI has been consulted. 01/09. Patient seen and examined. Currently states he is doing okay. Patient currently on dobutamine drip. Hemoglobin this morning is 7.3. 01/10. Patient seen and examined. Sitting upright in the bed. Discussed with him regarding goals of care, he wants her daughter to make a decision regarding CODE STATUS. Denies any chest pain. Gets short of breath on exertion /. Patient seen and examined. Blood work done this morning showedW6.3, hemoglobin 7.8, platelet count 94, sodium 135, Potassium 3.5, BUN 39, creatinine 1.78, glucose 115.Vital signs temperature afebrile, heart rate 91, respiration 22, blood pressure 9761, currently on 2 L of oxygen . Patient seen and examined. Blood work done showedWBC 9.8, hemoglobin 8.1, platelet count 89, sodium 135, potassium 4, BUN 35, creatinine 1.78. Patient continues to be on 2 L of oxygen. 01/14. Patient seen and examined. Currently sitting upright in the bed. No acute issues overnight. Currently on 2 L of oxygen 01/15 Patient seen and examined. Blood work this morning showed WBC 10, hemoglobin 8, platelet count 155, sodium 132, potassium 4.3, BUN 60, creatinine 2.19. Currently on oral Lasix 40 g twice a day. Nephrology increase the dose of midodrine 01/16/2025 Patient is evaluated today in follow up on the medical floor currently sitting up in the chair. He remains on IV lasix and has continued peripheral edema. Continues on oxygen via nasal cannula on 2L with saturations of 100%. Chest xray reveals overall similar examination with cardiomegaly, diffuse interstitial prominence with small bilateral pleural effusions with probable atelectasis. Findings suggest CHF exacerbation. Superimposed infectious process is not excluded. Sodium today 137, potassium 4.5, BUN 62.4, creatinine 2.6. 01/17/2025 Patient is evaluated today in follow up. He is up sitting the chair. He is off oxygen at this time however continues with significant lower extremity edema. Wo nancy recommend to ADOLFO wrap and discussed with patient the importance of elevating legs while sitting so they are not dependent. His labs today show a BUN of 65 and creatinine of 2.9. He remains on IV lasix 40 mg twice daily. 01/18/2025 Patient is seen in follow-up today with no acute overnight issues noted. Blood pressures on the softer side although maintained on high-dose Lasix per nephrology. Nephrology recommending oral Lasix on discharge with close outpatient follow-up. Plan is for patient to go to [facility] and currently awaiting insurance authorization. Patient's hemoglobin is 7.5 and will transfuse 1 unit and follow-up on repeat labs. Kidney functions continue to be elevated although slightly improved with a creatinine of 2.4 today. Social work is following and has submitted for insurance authorization which remains pending. Patient is afebrile with no reports of chest pain or shortness of breath. Patient has been tolerating diet and will continue current regimen. 01/19/2025 Patient is seen in follow-up this morning with nephrology following. Patient is continued on Lasix although kidney functions are worsening and 2.6 today. Patient continues to have significant lower extremity swelling 2+ pitting and also noted to have multiple blisters of the lower extremities that are intact although concerns with continued volume overload. Patient continues on high- dose Lasix and discussed with nephrology will reconsult cardiology as patient may benefit from dobutamine. Patient is afebrile with no reports of chest pain although continues to report shortness of breath. Plan is for patient to go to [facility] although continuing to await insurance authorization. Patient's hemoglobin is 8.0 status post 1 unit of PRBC yesterday with no active bleeding noted. 01/20/2025 Patient is seen in follow-up this morning continuing to have significant lower extremity swelling and some shortness of breath. Will obtain a chest x-ray and continue with current regimen. Plan is for patient to move to [facility] for initiation of dobutamine drip per cardiology as patient continues to have significant edema and vascular congestion with hypotension. Nephrology and cardiology following and adjusting medications. Creatinine slightly improved at 2.3 and potassium is 3.7. Will follow-up on repeat labs. Replace electrolytes per protocol. REVIEW OF SYSTEMS: CONSTITUTIONAL: No fever, no malaise,. CARDIOVASCULAR: No chest pain, no palpitations, no syncope. PULMONARY: Reports continued shortness of breath GASTROINTESTINAL: No diarrhea, no nausea, no vomiting, no abdominal pain. NEUROLOGICAL: No headaches, reports of generalized weakness PHYSICAL EXAMINATION: GENERAL: The patient is alert and oriented x 23, ill looking, elderly appearing, obese, hard of hearing HEENT: Pupils are round and equally reacting to light. EOMI. No scleral icterus. No conjunctival pallor. Normocephalic, atraumatic. No pharyngeal erythema. No thyromegaly. CARDIOVASCULAR: S1 and S2 present. No murmurs, rubs, or gallops. PULMONARY: Diminished breath sounds at the bases bilaterally no wheezing or crackles. Scattered ronchi. ABDOMEN: Soft, obese, nontender, nondistended, normoactive bowel sounds. No palpable organomegaly. MUSCULOSKELETAL: No joint swelling or deformity. EXTREMITIES: No cyanosis, clubbing, or pedal edema. Continues with 1-2+ pitting lower extremity edema. NEUROLOGICAL: Gross neurological examination did not reveal any focal deficits. SKIN: Hyperkeratotic growth seen on the left side of neck, growth also seen on both ears, blisters noted of bilateral lower extremities that are intact with no redness or purulence noted. 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 Hypertension Hyperlipidemia Hard of hearing History of CVA with left-sided weakness Acute hypoxic respiratory failure secondary to CHF exacerbation History of skin cancer History of melanoma Osteoarthritis History of asthma Obesity with a BMI of 32.7 GI prophylaxis DVT prophylaxis Full code Plan: Patient is status post EGD showing no active bleed, colonoscopy was negative for bleed likely diverticular which has stopped. Hemoglobin was 7.9 today with no active bleeding. Follow-up on repeat labs and transfuse if 7 or less Social work following as plans will be to go to [facility], currently awaiting insurance authorization Nephrology following maintained on IV Lasix and will transition to oral Lasix 60 mg twice daily with close outpatient follow-up and repeat labs Patient continues with significant lower extremity swelling 2+ pitting with some blisters noted and not ambulatory very much Cardiology reconsulted and patient is being started on dobutamine as patient continues to require IV Lasix for diuresis with significant edema although blood pressures remain soft. Per nursing staff patient needs to go to ICU for titration of drip Encourage incentive parameter use at least 10 times every hour while awake No further bleeding noted recommending outpatient follow-up with GI and general surgery Continuing to hold anticoagulation secondary to GI bleed and low hemoglobin. Patient to follow-up outpatient regarding resuming Currently awaiting insurance authorization for [place] although discussed with social work that patient is not quite ready for discharge Due to multiple complex medical issues, overall prognosis is guarded The impression and plan of care has been dictated by Leeanne Castanon, Nurse Practitioner as directed. Dr. Jerry MD I have performed a history and physical examination and medical decision making of this patient, discussed the same with the dictator, and agree with the dictators assessment and plan as written, documented as a scribe. Based on total visit time, I have performed more than 50% of this visit. Objective - Vital Signs Vital signs: Vital Signs Temp 97.5 F L 01/20/25 07:29 Pulse 63 01/20/25 07:29 Resp 15 01/20/25 07:29 BP 97/66 01/20/25 07:29 Pulse Ox 91 L 01/20/25 07:29 FiO2 40 01/12/25 18:27 Intake & Output 01/19/25 01/20/25 01/20/25 18:59 06:59 18:59 Intake Total 354 Output Total 700 1800 Balance -346 -1800 Weight 112.5 kg Intake: Oral 354 Output: Urine 700 1800 Other: Voiding Method Indwelling Catheter Indwelling Catheter # Bowel Movements 1 - Labs CBC & Chem 7: 01/21/25 03:06 01/21/25 03:06 Labs: Abnormal Lab Results - Last 24 Hours (Table) 01/20/25 01/20/25 Range/Units 04:59 04:59 RBC 3.23 L (4.40-5.60) X 10*6/uL Hgb 8.1 L (13.0-17.0) g/dL Hct 27.6 L (39.6-50.0) % MCH 25.1 L (27.0-32.0) pg MCHC 29.3 L (32.0-37.0) g/dL RDW 22.8 H (11.5-14.5) % BUN 58.9 H (9.0-27.0) mg/dL Creatinine 2.3 H (0.6-1.5) mg/dL Est GFR (CKD-EPI) 27 L (>=60) BUN/Creatinine Ratio 25.61 H (12.00-20.00) Ratio Glucose 119 H (70-110) mg/dL Calcium 8.6 L (8.7-10.3) mg/dL AST 51 H (14-35) U/L Alkaline Phosphatase 158 H (41-126) U/L Albumin 2.8 L (3.8-4.9) g/dL Globulin 4.2 H (1.6-3.3) g/dL Albumin/Globulin Ratio 0.67 L (1.60-3.17) Ratio
[2025-01-21 08:51] LABS: Magnesium 2.1 mg/dL (1.6-2.3); Potassium 4.1 mmol/L (3.5-5.1)
--- NOTE | 2025-01-21 12:20 | P.PN ---
Subjective Patient is seen for follow-up for acute kidney injury. Underlying chronic kidney disease stage IIIb with baseline creatinine around 1.4 to 1.5 mg/dL. Renal function is slightly improved with serum creatinine down to 2.1 today. Patient was started on dobutamine yesterday. He has been transferred to the ICU however he remains hemodynamically stable with no significant arrhythmias and has been transferred out of the ICU. P Objective - Vital Signs Vital signs: Vital Signs Temp 97.8 F 01/21/25 12:00 Pulse 79 01/21/25 12:11 Resp 20 01/21/25 12:11 BP 102/63 01/21/25 12:00 Pulse Ox 94 L 01/21/25 12:14 FiO2 40 01/12/25 18:27 Intake & Output 01/20/25 01/21/25 01/21/25 18:59 06:59 18:59 Intake Total 301.547 242.438 Output Total 1395 705 770 Balance -1093.453 -462.562 -770 Weight 115.4 kg Intake: Intake, IV Titration 1.547 242.438 Amount DOBUTamine DRIP 500 mg In 1.547 242.438 Dextrose/Water 1 250ml. bag @ 2.5 MCG/KG/MIN 8. 438 mls/hr IV .Q24H [facility] Rx#:[id number] Oral 300 Output: Urine 1395 705 770 Other: Voiding Method Indwelling Catheter Indwelling Catheter Indwelling Catheter # Bowel Movements 1 - Exam Patient is awake, comfortable Examination of the heart S1 and S2 Examination of the lungs bilateral breath sounds are heard Abdomen is soft nontender Examination of lower extremities shows chronic skin changes, 2+ edema - Labs CBC & Chem 7: 01/21/25 03:06 01/21/25 08:02 Labs: Abnormal Lab Results - Last 24 Hours (Table) 01/20/25 01/21/25 01/21/25 Range/Units 15:03 03:06 03:06 RBC 3.13 L (4.30-5.90) m/uL Hgb 7.9 L (13.0-17.5) gm/dL Hct 27.2 L (39.0-53.0) % MCHC 29.0 L (31.0-37.0) g/dL RDW 20.8 H (11.5-15.5) % Sodium 136 L (137-145) mmol/L Chloride 96 L (98-107) mmol/L Carbon Dioxide 32 H (22-30) mmol/L BUN 65 H (9-20) mg/dL Creatinine 2.16 H (0.66-1.25) mg/dL Glucose 127 H (74-99) mg/dL POC Glucose (mg/dL) 174 H (70-110) mg/dL Calcium 8.3 L (8.4-10.2) mg/dL Assessment and Plan Assessment: 1. Acute kidney injury secondary to ATN. Renal function slightly improved today with creatinine at 2.1 today. Maintained on IV Lasix. No hydronephrosis noted on CT. patient remains volume overloaded. Patient has been started on dobutamine due to persistent volume overload 2. Chronic kidney disease stage IIIb with baseline creatinine near 1.5 secondary to nephrosclerosis. 3. A-fib with RVR now on oral meds. 4. Acute GI bleed status post blood transfusions this admission. Component of chronic kidney disease. Colonoscopy showed hemorrhoids and diverticulosis with no active bleeding. On Aranesp. 5. Volume overload. 6. Acute on chronic systolic CHF ejection fraction of 15 to 20% with moderate to severe pulmonary hypertension. 7. Hypokalemia from diuresis. Replaced. Better. 8. Hypomagnesemia from diuresis. On oral magnesium oxide. Improved Plan: Continue with increased dose of IV Lasix Continue dobutamine Continue with aranesp Repeat labs in a.m.
--- NOTE | 2025-01-21 13:26 | P.PN ---
Subjective Progress Note Date: 01/21/25 Principal diagnosis: Acute lower GI bleeding On 01/11/2025, the patient is being seen for a follow-up. The patient this morning is calm and comfortable. Slightly bronchospastic and wheezy on examination. Nevertheless, he denies having any significant shortness of breath and the patient remains on 2 L of oxygen by nasal cannula. The patient is post acute GI bleeding with secondary anemia. The patient underwent a colonoscopy on 01/07/2025 and the patient was found to have a normal appearing colon from rectum to cecum. No evidence of any colitis or malignancy. No evidence of any active bleeding. There was scattered sigmoid diverticulosis and grade 2 hemorrhoids. During the course of this hospitalization, the patient received a total of 4 units of packed RBC, 2 units of fresh frozen plasma and 1 unit of platelet. The patient is currently on IV hydration. Hemoglobin is at 7.8. On a separate note, the patient is in atrial fibrillation. He remains on amiodarone at 0.5 mg/min. Rate is under better control for now. His echocardiogram done on 01/07/2025 showed evidence of severe LV dysfunction with an ejection fraction of 15 to 20% along with low-grade aortic stenosis without any regurgitation, moderate to severe pulmonary pretension with estimated right ventricular systolic pressure of 54. The patient remains on IV Lasix 40 mg every 12 hours. Fluid balance is negative over the past 24 hours and this is in the order of - 2.6 L. Chest x-ray from today is still showing pulm vascular congestion and cardiomegaly and small bilateral pleural effusions. On today's evaluation of 01/12/2025, the patient is stable on 2 L of oxygen by nasal cannula. No reported GI bleeding. Hemoglobin stable at 8.1. Platelet count is at 89. BUN 35 with a creatinine 1.7. Sodium is at 134 with a potassium level is at 4.0. The patient continues to diurese with IV Lasix. The patient is receiving Lasix 40 mg IV every 12 hours. Overall fluid balance has been -2.6 L over the past 24 hours and the patient is headed towards another 1.1 L negative fluid balance for today. The follow-up chest x-ray from today shows improvement in the pulm vascular congestion. There is still persistent pulm vessel congestion bilateral pleural effusion along with [facility]omegaly[facility] Denies having any specific complaints. Denies having any chest pain. No other significant events overnight. He is known to have systolic heart failure with severe LV dysfunction ejection fraction of 15 to 20%. He also has a low-grade aortic stenosis without regurgitation and moderate to severe pulm hypertension with a PA pressure of 54. On today's evaluation of 01/13/2025, the patient is doing well and he has no specific complaints. He remains on 2 L of oxygen by nasal cannula. He remains in atrial fibrillation. He is receiving Lasix and he was given 40 mg of IV Lasix and additional dose in addition to his oral medication. His fluid balance is -1.1 L over the past 24 hours. Chest x-ray still showing findings consistent with CHF with pulm vascular congestion and cardiomegaly and blunting of the costophrenic angles indicative of an underlying pleural effusions bilaterally. The patient denies having any significant chest pain or shortness of breath no evidence of any GI bleeding. Hemoglobin remained stable at 8 with a white cell count of 7.9. Platelet count is 104. BUN is 40 with a creatinine of 1.6 and a sodium levels at 133. The patient is on metoprolol 12.5 mg p.o. twice daily and amiodarone 400 mg p.o. twice daily and midodrine was also added by nephrology. Being given Aranesp for chronic anemia. On 01/14/2025, the patient is calm and comfortable. Shows no signs of any GI bleeding. Continues to have some pulm vessel congestion and crackles in lung base bilaterally and the patient is currently on 2 L of oxygen by nasal cannula. The patient is currently on oral Lasix. Remains on DuoNeb nebulized treatments [id number]. Remains on metoprolol 12.5 mg p.o. twice a day. No anticoagulants for now. Hemoglobin stable at 8 from yesterday. No new labs are available from today. On 01/15/2025, patient is calm and comfortable. No evidence of any GI bleeding. No respiratory difficulties. The patient remains on Lasix 40 mg p.o. twice a day. Nephrology added midodrine. The patient was consultation with a hemoglobin of 8 and platelet count of 155. BUN is 16 with a creatinine of 2.19 and nephrology on the case. Hemoglobin stable at 8.0. No other significant events overnight. Nephrology on the case. Midodrine was added. Noted the patient has impaired LV function with an EF of around 15 to 20% with moderate severe pulmonary hypertension. Patient was seen today on 01/21/2025, this patient was last seen by Dr. Lai on 01/15/2025, he is found as he was in the ICU with multiple comorbidities including severe LV dysfunction, moderate-severe pulmonary hypertension, acute GI bleeding, and eventually Dr. Lai signed off this patient and we have not been seeing until I was called to see him again today as he was transferred back to the ICU for dobutamine infusion. Apparently the patient has severe LV dysfunction and recurrent episodes of congestive heart failure being followed by cardiology, his ejection fraction is around 15 to 20% it is also associated with moderate severe pulmonary hypertension. Patient is now on dobutamine at 5 mcg/kg/min he is on Lasix 60 mg IV push every 12 hours, and he is on room air. Not in any distress, WBC count is 5.5 hemoglobin 7.9 basic metabolic profile is normal BUN is 65 creatinine 2.16, chest x-ray yesterday showed evidence of interstitial edema and small left-sided pleural effusion. Objective - Vital Signs Vital signs: Vital Signs Temp 97.8 F 01/21/25 12:00 Pulse 78 01/21/25 13:00 Resp 20 01/21/25 13:00 BP 105/53 01/21/25 13:00 Pulse Ox 95 01/21/25 13:00 FiO2 40 01/12/25 18:27 Intake & Output 01/20/25 01/21/25 01/21/25 18:59 06:59 18:59 Intake Total 301.547 242.438 Output Total 1395 705 770 Balance -1093.453 -462.562 -770 Weight 115.4 kg Intake: Intake, IV Titration 1.547 242.438 Amount DOBUTamine DRIP 500 mg In 1.547 242.438 Dextrose/Water 1 250ml. bag @ 2.5 MCG/KG/MIN 8. 438 mls/hr IV .Q24H [facility] Rx#:[id number] Oral 300 Output: Urine 1395 705 770 Other: Voiding Method Indwelling Catheter Indwelling Catheter Indwelling Catheter # Bowel Movements 1 - Exam General: Revealed 84-year-old white male in no distress on room air HEENT examination is grossly unremarkable. Mucous membranes are moist. No oral lesions. Neck supple. Full range of motion. No adenopathy thyromegaly or neck vein distention. Cardiovascular examination reveals irregular consistent with atrial fibrillation. No S3 or S4. No discernible murmur noted. Lungs reveal scattered rhonchi and crackles. Abdomen soft bowel sounds are heard. No masses or tenderness. Dried blood is noted in the area of the groin, over his lower abdomen, scrotum, and penis. Extremities are intact. No cyanosis clubbing or edema. Skin is without rash or lesion. Neurologic: Alert oriented x 3 no focal deficit Psychiatric: Normal mood affect and no mental status examination. - Labs CBC & Chem 7: 01/21/25 03:06 01/21/25 08:02 Labs: Abnormal Lab Results - Last 24 Hours (Table) 01/20/25 01/21/25 01/21/25 Range/Units 15:03 03:06 03:06 RBC 3.13 L (4.30-5.90) m/uL Hgb 7.9 L (13.0-17.5) gm/dL Hct 27.2 L (39.0-53.0) % MCHC 29.0 L (31.0-37.0) g/dL RDW 20.8 H (11.5-15.5) % Sodium 136 L (137-145) mmol/L Chloride 96 L (98-107) mmol/L Carbon Dioxide 32 H (22-30) mmol/L BUN 65 H (9-20) mg/dL Creatinine 2.16 H (0.66-1.25) mg/dL Glucose 127 H (74-99) mg/dL POC Glucose (mg/dL) 174 H (70-110) mg/dL Calcium 8.3 L (8.4-10.2) mg/dL Assessment and Plan Assessment: Impression: Acute on chronic systolic congestive heart failure with severe LV dysfunction Severe pulmonary hypertension Acute lower GI bleeding, resolved Acute anemia secondary to above Acute non-ST elevation myocardial infarction Chronic atrial fibrillation 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 History of underlying asthma History of CVA Dyslipidemia History of melanoma Degenerative joint disease Recommendation: Continue dobutamine as ordered by cardiology Continue Lasix Continue midodrine for hypotension Continue iron supplement, for anemia Continue to monitor labs daily including CBC and basic metabolic profile, renal profile Continue to monitor I's and O's Continue bronchodilators/DuoNeb Will continue to follow while in the ICU.` Could consider thoracentesis of the left pleural effusion if no improvement noted with diuretics. At this point the patient is not symptomatic we will not address thoracentesis at this point. Time with Patient: Greater than 30
--- NOTE | 2025-01-21 16:05 | XR ---
EXAMINATION TYPE: XR chest 1V portable DATE OF EXAM: 01/21/2025 4:01 PM COMPARISON: Chest radiographs from 01/20/2025 CLINICAL INDICATION: Male, 84 years old with history of SOB; TECHNIQUE: XR chest 1V portable Frontal view of the chest. FINDINGS: Lungs/Pleura: No evidence of focal consolidation or pneumothorax. Blunting of the costophrenic angles is present. Pulmonary vascularity: Pulmonary vascular congestion. Heart/mediastinum: Cardiomediastinal silhouette is enlarged. Musculoskeletal: No acute osseous pathology. IMPRESSION: Cardiomegaly, pulmonary vascular congestion and bilateral pleural effusions. Correlate with BNP for c ongestive heart failure. [facility], , 01/21/2025 4:03 PM
--- NOTE | 2025-01-21 16:30 | US ---
EXAMINATION TYPE: US chest DATE OF EXAM: 01/21/2025 COMPARISON: Xray 01/20/25 CLINICAL INDICATION: Male, 84 years old with history of Pleural effusions; bilat effusions TECHNIQUE: Grayscale imaging of the chest. Targeted ultrasound of the posterior lower bilateral neelima thoraces FINDINGS: EXAM MEASUREMENTS: Right Pleural Effusion pocket size: 10.7 cm Right skin surface to fluid distance: 3.4 cm Left Pleural Effusion pocket size: 9.9 cm Left skin surface to fluid distance: 3.3 cm Right side marked for possible thoracentesis outside the dept. Left side marked for possible thoracentesis outside the dept. Pulmonologists are able to review the images in the patient?s EMR. exam slightly limited by patient mobility/cooperation IMPRESSIONS: As above [facility], , 01/21/2025 4:28 PM
[2025-01-21] MEDS: FUROSEMIDE 10 MG/ML 10 ML VIAL IV STA (21:01)
[2025-01-22] MEDS: ALPRAZolam 0.25 MG TAB PO STA (00:04)
[2025-01-22 03:39] LABS: Anisocytosis Moderate; Basophils % (A) 0 %; Eosinophils % (A) 0 %; HCT 27.6 % (39.0-53.0); HGB 8.1 gm/dL (13.0-17.5); Hypochromasia Marked; Lymphocytes # (A) 0.3 k/uL (1.0-4.8); Lymphocytes % (A) 5 %; MCH 25.4 pg (25.0-35.0); MCHC 29.4 g/dL (31.0-37.0); MCV 86.5 fL (80.0-100.0); Mean Platelet Volume 8.4; Monocytes # (A) 0.3 k/uL (0-1.0); Monocytes % (A) 5 %; Neutrophils # (A) 4.7 k/uL (1.3-7.7); Neutrophils % (A) 89 %; Platelet Count 154 k/uL (150-450); RBC 3.19 m/uL (4.30-5.90); RDW 20.8 % (11.5-15.5); WBC 5.3 k/uL (3.8-10.6)
[2025-01-22 03:52] LABS: African American GFR (CKD) 32 (>60 ml/min/1.73 sqM); Anion Gap 7 mmol/L; Blood Urea Nitrogen 63 mg/dL (9-20); Calcium 8.8 mg/dL (8.4-10.2); Carbon Dioxide 35 mmol/L (22-30); Chloride 96 mmol/L (98-107); Glucose 127 mg/dL (74-99); Non-African American GFR(CKD) 27 (>60 ml/min/1.73 sqM); Sodium 138 mmol/L (137-145)
--- NOTE | 2025-01-22 05:42 | P.PN ---
Subjective Progress Note Date: 01/21/25 89-year-old male patient with past medical history significant for coronary artery disease status post stenting 2021, ischemic cardiomyopathy with a EF 40 to 45%, history of CVA with left-sided residual deficits, hypertension, hyperlipidemia, hard of hearing, history of skin cancer who presented to ER with a complaint of blood in the stools. Patient was brought to the ER by EMS, was noted to have large bloody bowel movement, was complaining of dizziness, also complained of nausea and abdominal discomfort. Patient was afebrile on presentation, was tachycardic and hypotensive, initially was on on room air, later on required supplemental oxygen 2 L after IV fluids. WBCs 12.5, hemoglobin 5.7, came up to 7.4 after 3 units. Platelet 227. INR 1.3. Sodium 139, potassium 5.4, chloride 107, CO2 12, BUN 51, creatinine 2.03, GFR 30. Liver profile unremarkable. Chest x-ray showed small left pleural effusion with left basilar opacities, diffuse interstitial prominence. 01/07--patient was seen and examined today. Patient is afebrile, heart rate 91, respiratory rate 27, blood pressure 99/56, saturating 99%, currently on BiPAP with 30% FiO2. WBCs 12.1, hemoglobin 8.3, platelet 158. Sodium 143, potassium 4.9, BUN 59, creatinine 2.17. Troponin was 16.5, went up to 12.2. proBNP 11,600. Patient underwent colonoscopy today which showed normal-appearing colon from rectum to cecum with no evidence of colitis or colorectal neoplasia, no active GI bleed, scattered sigmoid diverticulosis. Grade 2 hemorrhoids. 01/08--patient initially presented to ED with GI bleed, transferred to ICU for GI bleed, hemorrhagic shock, requiring Levophed, underwent EGD and colonoscopy, showed diverticular disease and hemorrhoids, required 4 unit of packed RBCs, 2 units of fresh frozen plasma, 1 unit of platelets, DDAVP, no further bleeding at this point, hemoglobin is now stable. Remains on norepinephrine. On 4 L oxygen. Cardiology following for NSTEMI. Patient is afebrile, heart rate 92, respiratory rate 27, saturating 100% on 3 L. Blood pressure is soft 93/56. Patient currently on Levophed. Chest x-ray showed pleural effusion, CHF. Echocardiogram showed severe LV dysfunction with EF less than 20%, RV enlargement, moderate to severe pulmonary hypertension, reduced aortic valve excursion/opening. WBCs 8.5, hemoglobin 8.4, platelet 120. Sodium 139, potassium 4.2, chloride 102, CO2 24, BUN 60, creatinine 2.15. UA showed large leukocyte Estrace, RBCs WBCs. Patient is currently on Zosyn. ICU, nephrology, cardiology GI has been consulted. 01/09. Patient seen and examined. Currently states he is doing okay. Patient currently on dobutamine drip. Hemoglobin this morning is 7.3. 01/10. Patient seen and examined. Sitting upright in the bed. Discussed with him regarding goals of care, he wants her daughter to make a decision regarding CODE STATUS. Denies any chest pain. Gets short of breath on exertion /. Patient seen and examined. Blood work done this morning showedW6.3, hemoglobin 7.8, platelet count 94, sodium 135, Potassium 3.5, BUN 39, creatinine 1.78, glucose 115.Vital signs temperature afebrile, heart rate 91, respiration 22, blood pressure 9761, currently on 2 L of oxygen . Patient seen and examined. Blood work done showedWBC 9.8, hemoglobin 8.1, platelet count 89, sodium 135, potassium 4, BUN 35, creatinine 1.78. Patient continues to be on 2 L of oxygen. 01/14. Patient seen and examined. Currently sitting upright in the bed. No acute issues overnight. Currently on 2 L of oxygen 01/15 Patient seen and examined. Blood work this morning showed WBC 10, hemoglobin 8, platelet count 155, sodium 132, potassium 4.3, BUN 60, creatinine 2.19. Currently on oral Lasix 40 g twice a day. Nephrology increase the dose of midodrine 01/16/2025 Patient is evaluated today in follow up on the medical floor currently sitting up in the chair. He remains on IV lasix and has continued peripheral edema. Continues on oxygen via nasal cannula on 2L with saturations of 100%. Chest xray reveals overall similar examination with cardiomegaly, diffuse interstitial prominence with small bilateral pleural effusions with probable atelectasis. Findings suggest CHF exacerbation. Superimposed infectious process is not excluded. Sodium today 137, potassium 4.5, BUN 62.4, creatinine 2.6. 01/17/2025 Patient is evaluated today in follow up. He is up sitting the chair. He is off oxygen at this time however continues with significant lower extremity edema. Wo nancy recommend to ADOLFO wrap and discussed with patient the importance of elevating legs while sitting so they are not dependent. His labs today show a BUN of 65 and creatinine of 2.9. He remains on IV lasix 40 mg twice daily. 01/18/2025 Patient is seen in follow-up today with no acute overnight issues noted. Blood pressures on the softer side although maintained on high-dose Lasix per nephrology. Nephrology recommending oral Lasix on discharge with close outpatient follow-up. Plan is for patient to go to [facility] and currently awaiting insurance authorization. Patient's hemoglobin is 7.5 and will transfuse 1 unit and follow-up on repeat labs. Kidney functions continue to be elevated although slightly improved with a creatinine of 2.4 today. Social work is following and has submitted for insurance authorization which remains pending. Patient is afebrile with no reports of chest pain or shortness of breath. Patient has been tolerating diet and will continue current regimen. 01/19/2025 Patient is seen in follow-up this morning with nephrology following. Patient is continued on Lasix although kidney functions are worsening and 2.6 today. Patient continues to have significant lower extremity swelling 2+ pitting and also noted to have multiple blisters of the lower extremities that are intact although concerns with continued volume overload. Patient continues on high- dose Lasix and discussed with nephrology will reconsult cardiology as patient may benefit from dobutamine. Patient is afebrile with no reports of chest pain although continues to report shortness of breath. Plan is for patient to go to [facility] although continuing to await insurance authorization. Patient's hemoglobin is 8.0 status post 1 unit of PRBC yesterday with no active bleeding noted. 01/20/2025 Patient is seen in follow-up this morning continuing to have significant lower extremity swelling and some shortness of breath. Will obtain a chest x-ray and continue with current regimen. Plan is for patient to move to [facility] for initiation of dobutamine drip per cardiology as patient continues to have significant edema and vascular congestion with hypotension. Nephrology and cardiology following and adjusting medications. Creatinine slightly improved at 2.3 and potassium is 3.7. Will follow-up on repeat labs. Replace electrolytes per protocol. 01/21/2025 Patient is seen in follow-up today and being followed by cardiology along with nephrology maintained in the ICU as patient was placed on dobutamine drip for hypotension and continued ongoing persistent extensive edema. Patient continues to report significant shortness of breath and requesting BiPAP. Will have respiratory adjust and recommend BiPAP at night with standard settings. Creatinine slightly improved although minimally and currently 2.1 with nephrology following and is continued on high-dose IV Lasix showing some improvement in the lower extremity swelling. Patient is extremely weak and would recommend physical therapy daily. REVIEW OF SYSTEMS: CONSTITUTIONAL: No fever, no malaise,. CARDIOVASCULAR: No chest pain, no palpitations, no syncope. PULMONARY: Reports continued shortness of breath GASTROINTESTINAL: No diarrhea, no nausea, no vomiting, no abdominal pain. NEUROLOGICAL: No headaches, reports of generalized weakness PHYSICAL EXAMINATION: GENERAL: The patient is alert and oriented x 23, ill looking, elderly appearing, obese, hard of hearing HEENT: Pupils are round and equally reacting to light. EOMI. No scleral icterus. No conjunctival pallor. Normocephalic, atraumatic. No pharyngeal erythema. No thyromegaly. CARDIOVASCULAR: S1 and S2 present. No murmurs, rubs, or gallops. PULMONARY: Diminished breath sounds at the bases bilaterally no wheezing or crackles. Scattered ronchi. ABDOMEN: Soft, obese, nontender, nondistended, normoactive bowel sounds. No palpable organomegaly. MUSCULOSKELETAL: No joint swelling or deformity. EXTREMITIES: No cyanosis, clubbing, or pedal edema. Continues with 1-2+ pitting lower extremity edema. NEUROLOGICAL: Gross neurological examination did not reveal any focal deficits. SKIN: Hyperkeratotic growth seen on the left side of neck, growth also seen on both ears, blisters noted of bilateral lower extremities that are intact with no redness or purulence noted. 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 Hypertension Hyperlipidemia Hard of hearing History of CVA with left-sided weakness Acute hypoxic respiratory failure secondary to CHF exacerbation History of skin cancer History of melanoma Osteoarthritis History of asthma Obesity with a BMI of 32.7 GI prophylaxis DVT prophylaxis Full code Plan: Patient is status post EGD showing no active bleed, colonoscopy was negative for bleed likely diverticular which has stopped. Hemoglobin was 8.1 today with no active bleeding. Follow-up on repeat labs and transfuse if 7 or less Social work following as plans will be to go to [facility], currently awaiting insurance authorization although this has been placed on hold as patient is having continuous shortness of breath, hypotension, ongoing edema and maintained on dobutamine drip Patient continues to have significant shortness of breath and recommend to wean FiO2 as tolerated. Patient to use BiPAP at night. Nephrology following maintained on IV Lasix and will transition to oral Lasix 60 mg twice daily with close outpatient follow-up and repeat labs Patient continues with significant lower extremity swelling 2+ pitting with some blisters noted and not ambulatory very much. Would recommend PT/OT therapy daily Encourage incentive parameter use at least 10 times every hour while awake No further bleeding noted recommending outpatient follow-up with GI and general surgery Continuing to hold anticoagulation secondary to GI bleed and low hemoglobin. Patient to follow-up outpatient regarding resuming Plan will be for going to [facility] on discharge and will require insurance authorization. Discussed with social work that patient is Not ready for discharge Due to multiple complex medical issues, overall prognosis is guarded The impression and plan of care has been dictated by Leeanne Castanon, Nurse Practitioner as directed. Dr. Jerry MD I have performed a history and physical examination and medical decision making of this patient, discussed the same with the dictator, and agree with the dictators assessment and plan as written, documented as a scribe. Based on total visit time, I have performed more than 50% of this visit. Objective - Vital Signs Vital signs: Vital Signs Temp 97.8 F 01/21/25 12:00 Pulse 78 01/21/25 13:00 Resp 20 01/21/25 13:00 BP 105/53 01/21/25 13:00 Pulse Ox 95 01/21/25 13:00 FiO2 40 01/12/25 18:27 Intake & Output 01/20/25 01/21/25 01/21/25 18:59 06:59 18:59 Intake Total 301.547 242.438 Output Total 1395 705 770 Balance -1093.453 -462.562 -770 Weight 115.4 kg Intake: Intake, IV Titration 1.547 242.438 Amount DOBUTamine DRIP 500 mg In 1.547 242.438 Dextrose/Water 1 250ml. bag @ 2.5 MCG/KG/MIN 8. 438 mls/hr IV .Q24H [facility] Rx#:[id number] Oral 300 Output: Urine 1395 705 770 Other: Voiding Method Indwelling Catheter Indwelling Catheter Indwelling Catheter # Bowel Movements 1 - Labs CBC & Chem 7: 01/22/25 03:10 01/22/25 03:10 Labs: Abnormal Lab Results - Last 24 Hours (Table) 01/20/25 01/21/25 01/21/25 Range/Units 15:03 03:06 03:06 RBC 3.13 L (4.30-5.90) m/uL Hgb 7.9 L (13.0-17.5) gm/dL Hct 27.2 L (39.0-53.0) % MCHC 29.0 L (31.0-37.0) g/dL RDW 20.8 H (11.5-15.5) % Sodium 136 L (137-145) mmol/L Chloride 96 L (98-107) mmol/L Carbon Dioxide 32 H (22-30) mmol/L BUN 65 H (9-20) mg/dL Creatinine 2.16 H (0.66-1.25) mg/dL Glucose 127 H (74-99) mg/dL POC Glucose (mg/dL) 174 H (70-110) mg/dL Calcium 8.3 L (8.4-10.2) mg/dL
--- NOTE | 2025-01-22 06:57 | XR ---
EXAM: XR Chest, 1 View CLINICAL HISTORY: ITS.REASON XR Reason: bilateral pleural effusions TECHNIQUE: Frontal view of the chest. COMPARISON: X-ray dated 01/21/2025. FINDINGS: Lungs: Opacification of the bilateral mid to lower lungs. Pleural space: Bilateral pleural effusion. No pneumothorax. Heart: The cardiacs silhouette is obscured. Mediastinum: Unremarkable. Normal mediastinal contour. Bones/joints: Degenerative changes are seen in the spine and shoulders. No acute fracture. Vasculature: Calcifications overlie the aorta. IMPRESSION: Stable chest.
--- NOTE | 2025-01-22 09:54 | P.PN ---
Subjective Progress Note Date: 01/21/25 The patient is an 84-year-old male with multiple comorbid conditions. He was originally admitted with acute lower GI bleed and hemorrhagic shock. Cardiology was consulted for A-fib management and was subsequently signed off on the case. Reconsultation yesterday for congestive heart failure and worsening kidney function. Nephrology was requesting dobutamine infusion. EF on arrival was 10 to 15%. Patient interviewed and examined in bed. He does have labored breathing. Lung sounds are coarse. No current chest discomfort. GENERAL: Ill-appearing, well-nourished and in mild respiratory distress NECK: Supple without JVD or thyromegaly. LUNGS: Breath sounds coarse to auscultation bilaterally. Respiration equal. Bilateral inspiratory and expiratory wheezes HEART: Irregular rate and rhythm without murmurs, rubs or gallops. S1 and S2 heard. EXTREMITIES: Normal range of motion, moderate edema. No clubbing or cyanosis. Peripheral pulses intact and strong. 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 Objective - Vital Signs Vital signs: Vital Signs Temp 97.6 F 01/21/25 08:00 Pulse 75 01/21/25 09:15 Resp 14 01/21/25 09:15 BP 106/61 01/21/25 09:15 Pulse Ox 92 L 01/21/25 09:15 FiO2 40 01/12/25 18:27 Intake & Output 01/20/25 01/21/25 01/21/25 18:59 06:59 18:59 Intake Total 301.547 242.438 Output Total 1395 705 370 Balance -1093.453 -462.562 -370 Weight 115.4 kg Intake: Intake, IV Titration 1.547 242.438 Amount DOBUTamine DRIP 500 mg In 1.547 242.438 Dextrose/Water 1 250ml. bag @ 2.5 MCG/KG/MIN 8. 438 mls/hr IV .Q24H [facility] Rx#:[id number] Oral 300 Output: Urine 1395 705 370 Other: Voiding Method Indwelling Catheter Indwelling Catheter Indwelling Catheter # Bowel Movements 1 - Labs CBC & Chem 7: 01/22/25 03:10 01/22/25 03:10 Labs: Abnormal Lab Results - Last 24 Hours (Table) 01/20/25 01/21/25 01/21/25 Range/Units 15:03 03:06 03:06 RBC 3.13 L (4.30-5.90) m/uL Hgb 7.9 L (13.0-17.5) gm/dL Hct 27.2 L (39.0-53.0) % MCHC 29.0 L (31.0-37.0) g/dL RDW 20.8 H (11.5-15.5) % Sodium 136 L (137-145) mmol/L Chloride 96 L (98-107) mmol/L Carbon Dioxide 32 H (22-30) mmol/L BUN 65 H (9-20) mg/dL Creatinine 2.16 H (0.66-1.25) mg/dL Glucose 127 H (74-99) mg/dL POC Glucose (mg/dL) 174 H (70-110) mg/dL Calcium 8.3 L (8.4-10.2) mg/dL
--- NOTE | 2025-01-22 09:59 | P.PN ---
Subjective Progress Note Date: 01/22/25 The patient is an 84-year-old male with multiple comorbid conditions. He was originally admitted with acute lower GI bleed and hemorrhagic shock. Cardiology was consulted for A-fib management and was subsequently signed off on the case. We were reconsulted for congestive heart failure and worsening kidney function. Nephrology was requesting dobutamine infusion. EF on arrival was 10 to 15%. Over the last 24 hours patient's oxygen requirements have increased. Patient was noted to have a large pleural effusion, with possible thoracentesis pending. Subsequently his dobutamine was increased to 5mcg. Patient interviewed and examined in bed. He does have labored breathing. Lung sounds are coarse. No current chest discomfort. GENERAL: Ill-appearing, well-nourished and in mild respiratory distress NECK: Supple without JVD or thyromegaly. LUNGS: Breath sounds coarse to auscultation bilaterally. Respiration equal. Bilateral inspiratory and expiratory wheezes HEART: Irregular rate and rhythm without murmurs, rubs or gallops. S1 and S2 heard. EXTREMITIES: Normal range of motion, severe lower extremity pitting edema. Venous stasis ulcers, weeping. no clubbing or cyanosis. Peripheral pulses intact. 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 Objective - Vital Signs Vital signs: Vital Signs Temp 98.2 F 01/22/25 08:00 Pulse 85 01/22/25 09:00 Resp 24 01/22/25 09:00 BP 100/66 03/21/25 09:00 Pulse Ox 97 01/22/25 09:00 FiO2 40 01/22/25 08:00 Intake & Output 01/21/25 01/22/25 01/22/25 18:59 06:59 18:59 Intake Total 360 250 Output Total 1820 895 225 Balance -1460 -645 -225 Weight 114.7 kg Intake: Intake, IV Titration 250 Amount DOBUTamine DRIP 500 mg In 250 Dextrose/Water 1 250ml. bag @ 2.5 MCG/KG/MIN 8. 438 mls/hr IV .Q24H [facility] Rx#:[id number] Oral 360 Output: Urine 1820 895 225 Other: Voiding Method Indwelling Catheter Indwelling Catheter Indwelling Catheter - Labs CBC & Chem 7: 01/22/25 03:10 01/22/25 03:10 Labs: Abnormal Lab Results - Last 24 Hours (Table) 01/22/25 01/22/25 Range/Units 03:10 03:10 RBC 3.19 L (4.30-5.90) m/uL Hgb 8.1 L (13.0-17.5) gm/dL Hct 27.6 L (39.0-53.0) % MCHC 29.4 L (31.0-37.0) g/dL RDW 20.8 H (11.5-15.5) % Lymphocytes # 0.3 L (1.0-4.8) k/uL Chloride 96 L (98-107) mmol/L Carbon Dioxide 35 H (22-30) mmol/L BUN 63 H (9-20) mg/dL Creatinine 2.16 H (0.66-1.25) mg/dL Glucose 127 H (74-99) mg/dL
--- NOTE | 2025-01-22 10:12 | P.PN ---
Subjective Progress Note Date: 01/22/25 The patient is an 84-year-old male with multiple comorbid conditions. He was originally admitted with acute lower GI bleed and hemorrhagic shock. Cardiology was consulted for A-fib management and was subsequently signed off on the case. We were reconsulted for congestive heart failure and worsening kidney function. Nephrology requested dobutamine infusion as kidney function has worsened. EF on arrival was 10 to 15%. Over the last 24 hours his respiratory status has worsened. He was started on BiPAP. Chest x-ray showed large pleural effusion, with possible thoracentesis pending. Patient interviewed and examined in bed. He does have labored breathing. Lung sounds are coarse. No current chest discomfort. GENERAL: Ill-appearing, well-nourished and in mild respiratory distress NECK: Supple without JVD or thyromegaly. LUNGS: Breath sounds coarse to auscultation bilaterally. Respiration equal. Bilateral inspiratory and expiratory wheezes HEART: Irregular rate and rhythm without murmurs, rubs or gallops. S1 and S2 heard. EXTREMITIES: Normal range of motion, severe bilateral lower extremity edema. Venous stasis ulcers with weeping. No clubbing or cyanosis. Peripheral pulses intact and strong. 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 and left main and LAD disease Chronic kidney disease stage IIIb Ischemic cardiomyopathy with previous EF of 40 to 45% Moderate to severe pulmonary hypertension Hypertension Hyperlipidemia Remote history of tobacco use History of stroke PLAN: Continue dobutamine for renal perfusion Continue diuretics and electrolyte management per nephrology Compression therapy for lower extremity edema and venous wounds Recommend reducing midodrine with severe cardiomyopathy Further recommendations to be based upon clinical course I am dictating on behalf of Dr Alejandro Baugh's history/physical and assessment/plan. Objective - Vital Signs Vital signs: Vital Signs Temp 98.2 F 01/22/25 08:00 Pulse 85 01/22/25 09:00 Resp 24 01/22/25 09:00 BP 100/66 01/22/25 09:00 Pulse Ox 97 01/22/25 09:00 FiO2 40 01/22/25 08:00 Intake & Output 01/21/25 01/22/25 01/22/25 18:59 06:59 18:59 Intake Total 360 250 Output Total 1820 895 225 Balance -1460 -645 -225 Weight 114.7 kg Intake: Intake, IV Titration 250 Amount DOBUTamine DRIP 500 mg In 250 Dextrose/Water 1 250ml. bag @ 2.5 MCG/KG/MIN 8. 438 mls/hr IV .Q24H [facility] Rx#:[id number] Oral 360 Output: Urine 1820 895 225 Other: Voiding Method Indwelling Catheter Indwelling Catheter Indwelling Catheter - Labs CBC & Chem 7: 01/22/25 03:10 01/22/25 03:10 Labs: Abnormal Lab Results - Last 24 Hours (Table) 01/22/25 01/22/25 Range/Units 03:10 03:10 RBC 3.19 L (4.30-5.90) m/uL Hgb 8.1 L (13.0-17.5) gm/dL Hct 27.6 L (39.0-53.0) % MCHC 29.4 L (31.0-37.0) g/dL RDW 20.8 H (11.5-15.5) % Lymphocytes # 0.3 L (1.0-4.8) k/uL Chloride 96 L (98-107) mmol/L Carbon Dioxide 35 H (22-30) mmol/L BUN 63 H (9-20) mg/dL Creatinine 2.16 H (0.66-1.25) mg/dL Glucose 127 H (74-99) mg/dL
--- NOTE | 2025-01-22 11:26 | XR ---
EXAMINATION TYPE: XR chest 1V portable DATE OF EXAM: 01/22/2025 11:21 AM COMPARISON: 01/21/2025 CLINICAL INDICATION: Male, 84 years old with history of s/p rt thoracentesis, TECHNIQUE: XR chest 1V portable views of the chest are obtained. FINDINGS: Demonstrated are scattered senescent parenchymal change. Scattered infiltrates and reticular nodular type throughout the right lung with improvement throughou t the left lung. No evidence of pneumothorax status post thoracentesis. Persistent but diminishing pl eural effusions. The heart is stable. Hilar and mediastinal structures are within normal limits. Degenerative changes are seen of the dorsal spine. IMPRESSION: 1. As above [facility], , 01/22/2025 11:24 AM
--- NOTE | 2025-01-22 13:57 | P.PN ---
Subjective Progress Note Date: 01/22/25 Principal diagnosis: Acute lower GI bleeding On 01/11/2025, the patient is being seen for a follow-up. The patient this morning is calm and comfortable. Slightly bronchospastic and wheezy on examination. Nevertheless, he denies having any significant shortness of breath and the patient remains on 2 L of oxygen by nasal cannula. The patient is post acute GI bleeding with secondary anemia. The patient underwent a colonoscopy on 01/07/2025 and the patient was found to have a normal appearing colon from rectum to cecum. No evidence of any colitis or malignancy. No evidence of any active bleeding. There was scattered sigmoid diverticulosis and grade 2 hemorrhoids. During the course of this hospitalization, the patient received a total of 4 units of packed RBC, 2 units of fresh frozen plasma and 1 unit of platelet. The patient is currently on IV hydration. Hemoglobin is at 7.8. On a separate note, the patient is in atrial fibrillation. He remains on amiodarone at 0.5 mg/min. Rate is under better control for now. His echocardiogram done on 01/07/2025 showed evidence of severe LV dysfunction with an ejection fraction of 15 to 20% along with low-grade aortic stenosis without any regurgitation, moderate to severe pulmonary pretension with estimated right ventricular systolic pressure of 54. The patient remains on IV Lasix 40 mg every 12 hours. Fluid balance is negative over the past 24 hours and this is in the order of - 2.6 L. Chest x-ray from today is still showing pulm vascular congestion and cardiomegaly and small bilateral pleural effusions. On today's evaluation of 01/12/2025, the patient is stable on 2 L of oxygen by nasal cannula. No reported GI bleeding. Hemoglobin stable at 8.1. Platelet count is at 89. BUN 35 with a creatinine 1.7. Sodium is at 134 with a potassium level is at 4.0. The patient continues to diurese with IV Lasix. The patient is receiving Lasix 40 mg IV every 12 hours. Overall fluid balance has been -2.6 L over the past 24 hours and the patient is headed towards another 1.1 L negative fluid balance for today. The follow-up chest x-ray from today shows improvement in the pulm vascular congestion. There is still persistent pulm vessel congestion bilateral pleural effusion along with cardiomegaly. [facility]. Denies having any specific complaints. Denies having any chest pain. No other significant events overnight. He is known to have systolic heart failure with severe LV dysfunction ejection fraction of 15 to 20%. He also has a low-grade aortic stenosis without regurgitation and moderate to severe pulm hypertension with a PA pressure of 54. On today's evaluation of 01/13/2025, the patient is doing well and he has no specific complaints. He remains on 2 L of oxygen by nasal cannula. He remains in atrial fibrillation. He is receiving Lasix and he was given 40 mg of IV Lasix and additional dose in addition to his oral medication. His fluid balance is -1.1 L over the past 24 hours. Chest x-ray still showing findings consistent with CHF with pulm vascular congestion and cardiomegaly and blunting of the costophrenic angles indicative of an underlying pleural effusions bilaterally. The patient denies having any significant chest pain or shortness of breath no evidence of any GI bleeding. Hemoglobin remained stable at 8 with a white cell count of 7.9. Platelet count is 104. BUN is 40 with a creatinine of 1.6 and a sodium levels at 133. The patient is on metoprolol 12.5 mg p.o. twice daily and amiodarone 400 mg p.o. twice daily and midodrine was also added by nephrology. Being given Aranesp for chronic anemia. On 01/14/2025, the patient is calm and comfortable. Shows no signs of any GI bleeding. Continues to have some pulm vessel congestion and crackles in lung base bilaterally and the patient is currently on 2 L of oxygen by nasal cannula. The patient is currently on oral Lasix. Remains on DuoNeb nebulized treatments [id number]. Remains on metoprolol 12.5 mg p.o. twice a day. No anticoagulants for now. Hemoglobin stable at 8 from yesterday. No new labs are available from today. On 01/15/2025, patient is calm and comfortable. No evidence of any GI bleeding. No respiratory difficulties. The patient remains on Lasix 40 mg p.o. twice a day. Nephrology added midodrine. The patient was consultation with a hemoglobin of 8 and platelet count of 155. BUN is 16 with a creatinine of 2.19 and nephrology on the case. Hemoglobin stable at 8.0. No other significant events overnight. Nephrology on the case. Midodrine was added. Noted the patient has impaired LV function with an EF of around 15 to 20% with moderate severe pulmonary hypertension. Patient was seen today on 01/21/2025, this patient was last seen by Dr. Lai on 01/15/2025, he is found as he was in the ICU with multiple comorbidities including severe LV dysfunction, moderate-severe pulmonary hypertension, acute GI bleeding, and eventually Dr. Lai signed off this patient and we have not been seeing until I was called to see him again today as he was transferred back to the ICU for dobutamine infusion. Apparently the patient has severe LV dysfunction and recurrent episodes of congestive heart failure being followed by cardiology, his ejection fraction is around 15 to 20% it is also associated with moderate severe pulmonary hypertension. Patient is now on dobutamine at 5 mcg/kg/min he is on Lasix 60 mg IV push every 12 hours, and he is on room air. Not in any distress, WBC count is 5.5 hemoglobin 7.9 basic metabolic profile is normal BUN is 65 creatinine 2.16, chest x-ray yesterday showed evidence of interstitial edema and small left-sided pleural effusion. Patient was seen today on follow-up 01/22/2025, remains in the ICU, continues to have abnormal chest x-ray and abnormal ultrasound of the chest, hence I went ahead and performed a left-sided thoracentesis on this patient, and I was able to drain 1800 cc of fluid. Patient tolerated the procedure well, patient was placed on dobutamine when he was transferred out to the ICU, today I cut down his dobutamine to 2.5 mcg/kg/min, patient remains on diuretics with good resp onse to diuretics, looking at his previous echocardiogram, patient had ischemic cardiomyopathy with ejection fraction of 40 to 45%, however recent admission revealed his ejection fraction is down to 15 to 20%. Patient is quite ill, he has multiple comorbidities, and I will continue to monitor the patient in the ICU today although he felt much better after left-sided thoracentesis which was done with ultrasound guidance at bedside. WBC count today is 5.3 hemoglobin 8.1 electrolytes are normal bicarb is 35 BUN is 63 creatinine 2.16 Objective - Vital Signs Vital signs: Vital Signs Temp 98.3 F 01/22/25 12:00 Pulse 79 01/22/25 13:15 Resp 16 01/22/25 13:15 BP 79/61 01/22/25 13:15 Pulse Ox 98 01/22/25 13:15 FiO2 40 01/22/25 08:00 Intake & Output 01/21/25 01/22/25 01/22/25 18:59 06:59 18:59 Intake Total 360 250 Output Total 1820 895 505 Balance -2430 -555 -831 Weight 114.7 kg Intake: Intake, IV Titration 250 Amount DOBUTamine DRIP 500 mg In 250 Dextrose/Water 1 250ml. bag @ 2.5 MCG/KG/MIN 8. 438 mls/hr IV .Q24H [facility] Rx#:[id number] Oral 360 Output: Urine 1820 895 505 Other: Voiding Method Indwelling Catheter Indwelling Catheter Indwelling Catheter - Exam General: Revealed 84-year-old white male in no distress on 8 L high flow nasal cannula, patient was on BiPAP last night. HEENT examination is grossly unremarkable. Mucous membranes are moist. No oral lesions. Neck supple. Full range of motion. No adenopathy thyromegaly or neck vein distention. Cardiovascular examination reveals irregular consistent with atrial fibrillation. No S3 or S4. No discernible murmur noted. Lungs r reveal diminished breath sound bilaterally no rhonchi no wheezes Abdomen soft bowel sounds are heard. No masses or tenderness. Dried blood is noted in the area of the groin, over his lower abdomen, scrotum, and penis. Extremities are intact. No cyanosis clubbing or edema. Skin is without rash or lesion. Neurologic: Alert oriented x 3 no focal deficit Psychiatric: Normal mood affect and no mental status examination. - Labs CBC & Chem 7: 01/22/25 03:10 01/22/25 03:10 Labs: Abnormal Lab Results - Last 24 Hours (Table) 01/22/25 01/22/25 Range/Units 03:10 03:10 RBC 3.19 L (4.30-5.90) m/uL Hgb 8.1 L (13.0-17.5) gm/dL Hct 27.6 L (39.0-53.0) % MCHC 29.4 L (31.0-37.0) g/dL RDW 20.8 H (11.5-15.5) % Lymphocytes # 0.3 L (1.0-4.8) k/uL Chloride 96 L (98-107) mmol/L Carbon Dioxide 35 H (22-30) mmol/L BUN 63 H (9-20) mg/dL Creatinine 2.16 H (0.66-1.25) mg/dL Glucose 127 H (74-99) mg/dL Assessment and Plan Assessment: Impression: Acute hypoxic respiratory failure secondary to pulmonary edema and severe systolic dysfunction and bilateral pleural effusions Acute on chronic systolic congestive heart failure with severe LV dysfunction Severe pulmonary hypertension Acute lower GI bleeding, resolved Acute anemia secondary to above Acute non-ST elevation myocardial infarction Chronic atrial fibrillation 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 History of underlying asthma History of CVA Dyslipidemia History of melanoma Degenerative joint disease Status post left-sided thoracentesis, 1800 cc removed from the left pleural space Recommendation: Continue dobutamine, cut down dose to 2.5 mcg/kg/min Continue Lasix, as ordered by cardiology Continue midodrine for hypotension Continue iron supplement, for anemia Continue to monitor labs daily including CBC and basic metabolic profile, renal profile Continue to monitor I's and O's Continue bronchodilators/DuoNeb Considering the patient is on dobutamine, will continue to monitor in the ICU for now. Critical care time is over 30 minutes. Time with Patient: Greater than 30
[2025-01-22 15:26] LABS: ABG Base Excess 8.8 mmol/L; ABG HCO3 34 mmol/L (21-25); ABG Oxygen Saturation 97.9 % (94-97); ABG PCO2 49 mmHg (35-45); ABG PH 7.45 (7.35-7.45); ABG PO2 86 mmHg (83-108); ABG TCO2 35 mmol/L (19-24); Allen Test Performed? Yes
--- NOTE | 2025-01-22 15:58 | XR ---
EXAMINATION TYPE: XR chest 1V DATE OF EXAM: 01/22/2025 3:53 PM COMPARISON: 01/22/2025 CLINICAL INDICATION: Male, 84 years old with history of SoB, TECHNIQUE: XR chest 1V views of the chest are obtained. FINDINGS: Demonstrated are scattered senescent parenchymal change. Basilar airspace infiltrates may reflect underlying pneumonia. Suspect underlying interstitial lung d isease. The heart is stable. Hilar and mediastinal structures are within normal limits. Degenerative changes are seen of the dorsal spine. IMPRESSION: 1. Basilar airspace infiltrates may reflect underlying pneumonia. Suspect underlying interstitial maggie ng disease. [facility], , 01/22/2025 3:56 PM
[2025-01-22 18:06] LABS: Glucose, BF Source Pleural Fluid; Glucose, Body Fluid 135 mg/dL; LDH, Body Fluid Source Pleural Fluid; T. Protein, Body Fluid Source Pleural Fluid; Total Protein, Body Fluid 1670 mg/dL
[2025-01-22 18:07] LABS: Cholesterol,BF Source Pleural Fluid; Cholesterol,Body Fluid 11 mg/dL
--- NOTE | 2025-01-22 18:53 | P.PN ---
Subjective Patient is seen for follow-up for acute kidney injury. Underlying chronic kidney disease stage IIIb with baseline creatinine around 1.4 to 1.5 mg/dL. Renal function is stable with serum creatinine at 2.1 Patient was started on dobutamine .He has been transferred to the ICU however he remains hemodynamically stable. Status post thoracentesis today with 1.8 L. Objective - Vital Signs Vital signs: Vital Signs Temp 98.3 F 01/22/25 12:00 Pulse 86 01/22/25 18:00 Resp 22 01/22/25 18:00 BP 87/56 01/22/25 18:00 Pulse Ox 100 01/22/25 18:00 FiO2 40 01/22/25 16:50 Intake & Output 01/21/25 01/22/25 01/22/25 18:59 06:59 18:59 Intake Total 360 250 610 Output Total 3536 480 1484 Balance -1880 -390 -2160 Weight 114.7 kg Intake: Intake, IV Titration 250 250 Amount DOBUTamine DRIP 500 mg In 250 250 Dextrose/Water 1 250ml. bag @ 2.5 MCG/KG/MIN 8. 438 mls/hr IV .[facility] Rx#:[id number] Oral 360 360 Output: Urine 1820 895 970 Other 1800 Other: Voiding Method Indwelling Catheter Indwelling Catheter Indwelling Catheter - Exam Patient is awake, comfortable Examination of the heart S1 and S2 Examination of the lungs bilateral breath sounds are heard Abdomen is soft nontender Examination of lower extremities shows chronic skin changes, 2+ edema - Labs CBC & Chem 7: 01/22/25 03:10 01/22/25 03:10 Labs: Abnormal Lab Results - Last 24 Hours (Table) 01/22/25 01/22/25 01/22/25 Range/Units 03:10 03:10 15:22 RBC 3.19 L (4.30-5.90) m/uL Hgb 8.1 L (13.0-17.5) gm/dL Hct 27.6 L (39.0-53.0) % MCHC 29.4 L (31.0-37.0) g/dL RDW 20.8 H (11.5-15.5) % Lymphocytes # 0.3 L (1.0-4.8) k/uL ABG pCO2 49 H (35-45) mmHg ABG HCO3 34 H (21-25) mmol/L ABG Total CO2 35 H (19-24) mmol/L ABG O2 Saturation 97.9 H (94-97) % Hemoglobin 8.1 L (13.0-17.5) gm/dL Chloride 96 L (98-107) mmol/L Carbon Dioxide 35 H (22-30) mmol/L BUN 63 H (9-20) mg/dL Creatinine 2.16 H (0.66-1.25) mg/dL Glucose 127 H (74-99) mg/dL Assessment and Plan Assessment: 1. Acute kidney injury secondary to ATN. Renal function stable with creatinine at 2.1 today. Maintained on IV Lasix. No hydronephrosis noted on CT. patient remains volume overloaded. Patient has been started on dobutamine due to persistent volume overload 2. Chronic kidney disease stage IIIb with baseline creatinine near 1.5 secondary to nephrosclerosis. 3. A-fib with RVR now on oral meds. 4. Acute GI bleed status post blood transfusions this admission. Component of chronic kidney disease. Colonoscopy showed hemorrhoids and diverticulosis with no active bleeding. On Aranesp. 5. Volume overload. 6. Acute on chronic systolic CHF ejection fraction of 15 to 20% with moderate to severe pulmonary hypertension. 7. Hypokalemia from diuresis. Replaced. Better. 8. Hypomagnesemia from diuresis. On oral magnesium oxide. Improved 9. Left pleural effusion status post thoracentesis Plan: Continue with IV Lasix Continue dobutamine Continue with aranesp Repeat labs in a.m.
--- NOTE | 2025-01-22 20:03 | OP ---
OPERATIVE REPORT DATE OF SERVICE : PROCEDURE PERFORMED: Left-sided thoracentesis. PREOPERATIVE DIAGNOSIS: Large left pleural effusion. POSTOPERATIVE DIAGNOSIS: Large left pleural effusion. ANESTHESIA USED: 4 mL of 1% lidocaine. DESCRIPTION OF PROCEDURE: The patient was placed in a sitting upright position, and the area below the left scapula was prepared in a sterile fashion and drapes were applied. Prior to this, I was able to localize the fluid by using the portable ultrasound in the ICU, localized the fluid and placed a marking at the 8th intercostal space and tip of the scapula. Then, the area was locally anesthetized with lidocaine, a 26-gauge needle inserted into the same site into the pleural space. Fluid was localized with a needle, then a small tiny incision was made, and a standard thoracentesis catheter and needle were used, advanced at the same site into the pleural space, fluid was obtained. Then, the catheter was advanced over the needle and the needle was pulled out of the pleural space. 1800 cc of straw-colored fluid was removed from the left pleural space, fluid was sent for different diagnostic studies. Procedure was well tolerated, no complications, no pneumothorax, and significant improvement noted postoperatively. MMODL / IJN: [id number] /
[2025-01-22] MEDS: FUROSEMIDE 10 MG/ML 10 ML VIAL IV STA (20:38)
[2025-01-23 04:39] LABS: Anisocytosis Moderate; Basophils % (A) 0 %; Eosinophils % (A) 0 %; HCT 27.2 % (39.0-53.0); Hypochromasia Marked; Lymphocytes # (A) 0.6 k/uL (1.0-4.8); Lymphocytes % (A) 9 %; MCH 25.4 pg (25.0-35.0); MCHC 29.5 g/dL (31.0-37.0); MCV 86.2 fL (80.0-100.0); Mean Platelet Volume 8.8; Monocytes # (A) 0.4 k/uL (0-1.0); Monocytes % (A) 6 %; Neutrophils # (A) 5.5 k/uL (1.3-7.7); Neutrophils % (A) 83 %; Platelet Count 157 k/uL (150-450); RBC 3.16 m/uL (4.30-5.90); RDW 20.3 % (11.5-15.5); WBC 6.6 k/uL (3.8-10.6)
[2025-01-23 05:00] LABS: ALT 29 U/L (4-49); AST 53 U/L (17-59); African American GFR (CKD) 28 (>60 ml/min/1.73 sqM); Albumin 2.8 g/dL (3.5-5.0); Alkaline Phosphatase 140 U/L (38-126); Anion Gap 5 mmol/L; Blood Urea Nitrogen 66 mg/dL (9-20); Calcium 8.4 mg/dL (8.4-10.2); Carbon Dioxide 36 mmol/L (22-30); Chloride 94 mmol/L (98-107); Glucose 106 mg/dL (74-99); Magnesium 2.2 mg/dL (1.6-2.3); Non-African American GFR(CKD) 25 (>60 ml/min/1.73 sqM); Potassium 3.9 mmol/L (3.5-5.1); Sodium 135 mmol/L (137-145); Total Bilirubin 0.6 mg/dL (0.2-1.3); Total Protein 6.7 g/dL (6.3-8.2)
--- NOTE | 2025-01-23 06:22 | XR ---
EXAMINATION TYPE: XR chest 1V portable DATE OF EXAM: 01/23/2025 CLINICAL INDICATION: Male, 84 years old with history of post thoracentesis, progress study. TECHNIQUE: Single AP portable semiupright view of the chest is obtained. COMPARISON: Chest x-ray from one day earlier and older studies. FINDINGS: Persistent cardiomegaly with bilateral multifocal increased opacities greatest in the lowe r lungs. Suspect small bilateral pleural effusions. Osseous structures remain demineralized. IMPRESSION: Findings favor CHF exacerbation/fluid overload state. Areas of underlying acute infiltrat e not excluded particularly in the lower lungs. Correlate clinically. No significant change from one day earlier. [facility], , 01/23/2025 6:19 AM
--- NOTE | 2025-01-23 06:54 | P.PN ---
Subjective Progress Note Date: 01/22/25 89-year-old male patient with past medical history significant for coronary artery disease status post stenting 2021, ischemic cardiomyopathy with a EF 40 to 45%, history of CVA with left-sided residual deficits, hypertension, hyperlipidemia, hard of hearing, history of skin cancer who presented to ER with a complaint of blood in the stools. Patient was brought to the ER by EMS, was noted to have large bloody bowel movement, was complaining of dizziness, also complained of nausea and abdominal discomfort. Patient was afebrile on presentation, was tachycardic and hypotensive, initially was on on room air, later on required supplemental oxygen 2 L after IV fluids. WBCs 12.5, hemoglobin 5.7, came up to 7.4 after 3 units. Platelet 227. INR 1.3. Sodium 139, potassium 5.4, chloride 107, CO2 12, BUN 51, creatinine 2.03, GFR 30. Liver profile unremarkable. Chest x-ray showed small left pleural effusion with left basilar opacities, diffuse interstitial prominence. 01/07--patient was seen and examined today. Patient is afebrile, heart rate 91, respiratory rate 27, blood pressure 99/56, saturating 99%, currently on BiPAP with 30% FiO2. WBCs 12.1, hemoglobin 8.3, platelet 158. Sodium 143, potassium 4.9, BUN 59, creatinine 2.17. Troponin was 16.5, went up to 12.2. proBNP 11,600. Patient underwent colonoscopy today which showed normal-appearing colon from rectum to cecum with no evidence of colitis or colorectal neoplasia, no active GI bleed, scattered sigmoid diverticulosis. Grade 2 hemorrhoids. 01/08--patient initially presented to ED with GI bleed, transferred to ICU for GI bleed, hemorrhagic shock, requiring Levophed, underwent EGD and colonoscopy, showed diverticular disease and hemorrhoids, required 4 unit of packed RBCs, 2 units of fresh frozen plasma, 1 unit of platelets, DDAVP, no further bleeding at this point, hemoglobin is now stable. Remains on norepinephrine. On 4 L oxygen. Cardiology following for NSTEMI. Patient is afebrile, heart rate 92, respiratory rate 27, saturating 100% on 3 L. Blood pressure is soft 93/56. Patient currently on Levophed. Chest x-ray showed pleural effusion, CHF. Echocardiogram showed severe LV dysfunction with EF less than 20%, RV enlargement, moderate to severe pulmonary hypertension, reduced aortic valve excursion/opening. WBCs 8.5, hemoglobin 8.4, platelet 120. Sodium 139, potassium 4.2, chloride 102, CO2 24, BUN 60, creatinine 2.15. UA showed large leukocyte Estrace, RBCs WBCs. Patient is currently on Zosyn. ICU, nephrology, cardiology GI has been consulted. 01/09. Patient seen and examined. Currently states he is doing okay. Patient currently on dobutamine drip. Hemoglobin this morning is 7.3. 01/10. Patient seen and examined. Sitting upright in the bed. Discussed with him regarding goals of care, he wants her daughter to make a decision regarding CODE STATUS. Denies any chest pain. Gets short of breath on exertion /. Patient seen and examined. Blood work done this morning showedW6.3, hemoglobin 7.8, platelet count 94, sodium 135, Potassium 3.5, BUN 39, creatinine 1.78, glucose 115.Vital signs temperature afebrile, heart rate 91, respiration 22, blood pressure 9761, currently on 2 L of oxygen . Patient seen and examined. Blood work done showedWBC 9.8, hemoglobin 8.1, platelet count 89, sodium 135, potassium 4, BUN 35, creatinine 1.78. Patient continues to be on 2 L of oxygen. 01/14. Patient seen and examined. Currently sitting upright in the bed. No acute issues overnight. Currently on 2 L of oxygen 01/15 Patient seen and examined. Blood work this morning showed WBC 10, hemoglobin 8, platelet count 155, sodium 132, potassium 4.3, BUN 60, creatinine 2.19. Currently on oral Lasix 40 g twice a day. Nephrology increase the dose of midodrine 01/16/2025 Patient is evaluated today in follow up on the medical floor currently sitting up in the chair. He remains on IV lasix and has continued peripheral edema. Continues on oxygen via nasal cannula on 2L with saturations of 100%. Chest xray reveals overall similar examination with cardiomegaly, diffuse interstitial prominence with small bilateral pleural effusions with probable atelectasis. Findings suggest CHF exacerbation. Superimposed infectious process is not excluded. Sodium today 137, potassium 4.5, BUN 62.4, creatinine 2.6. 01/17/2025 Patient is evaluated today in follow up. He is up sitting the chair. He is off oxygen at this time however continues with significant lower extremity edema. Wo nancy recommend to ADOLFO wrap and discussed with patient the importance of elevating legs while sitting so they are not dependent. His labs today show a BUN of 65 and creatinine of 2.9. He remains on IV lasix 40 mg twice daily. 01/18/2025 Patient is seen in follow-up today with no acute overnight issues noted. Blood pressures on the softer side although maintained on high-dose Lasix per nephrology. Nephrology recommending oral Lasix on discharge with close outpatient follow-up. Plan is for patient to go to [facility] and currently awaiting insurance authorization. Patient's hemoglobin is 7.5 and will transfuse 1 unit and follow-up on repeat labs. Kidney functions continue to be elevated although slightly improved with a creatinine of 2.4 today. Social work is following and has submitted for insurance authorization which remains pending. Patient is afebrile with no reports of chest pain or shortness of breath. Patient has been tolerating diet and will continue current regimen. 01/19/2025 Patient is seen in follow-up this morning with nephrology following. Patient is continued on Lasix although kidney functions are worsening and 2.6 today. Patient continues to have significant lower extremity swelling 2+ pitting and also noted to have multiple blisters of the lower extremities that are intact although concerns with continued volume overload. Patient continues on high- dose Lasix and discussed with nephrology will reconsult cardiology as patient may benefit from dobutamine. Patient is afebrile with no reports of chest pain although continues to report shortness of breath. Plan is for patient to go to [facility] although continuing to await insurance authorization. Patient's hemoglobin is 8.0 status post 1 unit of PRBC yesterday with no active bleeding noted. 01/20/2025 Patient is seen in follow-up this morning continuing to have significant lower extremity swelling and some shortness of breath. Will obtain a chest x-ray and continue with current regimen. Plan is for patient to move to [facility] for initiation of dobutamine drip per cardiology as patient continues to have significant edema and vascular congestion with hypotension. Nephrology and cardiology following and adjusting medications. Creatinine slightly improved at 2.3 and potassium is 3.7. Will follow-up on repeat labs. Replace electrolytes per protocol. 01/21/2025 Patient is seen in follow-up today and being followed by cardiology along with nephrology maintained in the ICU as patient was placed on dobutamine drip for hypotension and continued ongoing persistent extensive edema. Patient continues to report significant shortness of breath and requesting BiPAP. Will have respiratory adjust and recommend BiPAP at night with standard settings. Creatinine slightly improved although minimally and currently 2.1 with nephrology following and is continued on high-dose IV Lasix showing some improvement in the lower extremity swelling. Patient is extremely weak and would recommend physical therapy daily. 01/22/2025 Patient is seen in follow-up continues to be in the ICU with multiple consultations following. Functions remain elevated at 2.16 creatinine and on high-dose Lasix along with dobutamine with cardiology and nephrology following. Patient continues to have significant shortness of breath with pulmonary following order chest ultrasound with plans for today. Patient requiring 9 L high flow and has been using BiPAP at night. Hemoglobin is stable above 8 with no active bleeding noted and recommend to transfuse if 7 or less. Patient is afebrile encourage incentive spirometer use at least 10 times every hour while awake. REVIEW OF SYSTEMS: CONSTITUTIONAL: No fever, no malaise,. CARDIOVASCULAR: No chest pain, no palpitations, no syncope. PULMONARY: Reports continued shortness of breath GASTROINTESTINAL: No diarrhea, no nausea, no vomiting, no abdominal pain. NEUROLOGICAL: No headaches, reports of generalized weakness PHYSICAL EXAMINATION: GENERAL: The patient is alert and oriented x 23, ill looking, elderly appearing, obese, hard of hearing HEENT: Pupils are round and equally reacting to light. EOMI. No scleral icterus. No conjunctival pallor. Normocephalic, atraumatic. No pharyngeal erythema. No thyromegaly. CARDIOVASCULAR: S1 and S2 present. No murmurs, rubs, or gallops. PULMONARY: Diminished breath sounds at the bases bilaterally no wheezing or crackles. Scattered ronchi. ABDOMEN: Soft, obese, nontender, nondistended, normoactive bowel sounds. No palpable organomegaly. MUSCULOSKELETAL: No joint swelling or deformity. EXTREMITIES: No cyanosis, clubbing, or pedal edema. Continues with 1-2+ pitting lower extremity edema. NEUROLOGICAL: Gross neurological examination did not reveal any focal deficits. SKIN: Hyperkeratotic growth seen on the left side of neck, growth also seen on both ears, blisters noted of bilateral lower extremities that are intact with no redness or purulence noted. 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 Hypertension Hyperlipidemia Hard of hearing History of CVA with left-sided weakness Acute hypoxic respiratory failure secondary to CHF exacerbation History of skin cancer History of melanoma Osteoarthritis History of asthma Obesity with a BMI of 32.7 GI prophylaxis DVT prophylaxis Full code Plan: Patient is status post EGD showing no active bleed, colonoscopy was negative for bleed likely diverticular which has stopped. Hemoglobin was 8.0 today with no active bleeding. Follow-up on repeat labs and transfuse if 7 or less Pulmonary following as well and underwent chest ultrasound and is status post thoracentesis on the left with approximately 2 L removed. Specimen sent for cytology as well Patient continues to have significant shortness of breath although feels significantly improved since thoracentesis this morning and recommend to wean FiO2 as tolerated. Patient to use BiPAP at night. Nephrology following maintained on IV Lasix as well as dobutamine drip and continues with significant volume overload and hypotension. Maintained on midodrine Patient continues with significant lower extremity swelling 2+ pitting with some blisters noted and not ambulatory very much. Would recommend PT/OT therapy daily Encourage incentive parameter use at least 10 times every hour while awake No further bleeding noted recommending outpatient follow-up with GI and general surgery Continuing to hold anticoagulation secondary to GI bleed and low hemoglobin. Patient to follow-up outpatient regarding resuming Plan will be for going to [facility] on discharge and will require insurance authorization. Discussed with social work that patient is Not ready for discharge Due to multiple complex medical issues, overall prognosis is guarded The impression and plan of care has been dictated by Leeanne Castanon, Nurse Practitioner as directed. Dr. Jerry MD I have performed a history and physical examination and medical decision making of this patient, discussed the same with the dictator, and agree with the dict ators assessment and plan as written, documented as a scribe. Based on total visit time, I have performed more than 50% of this visit. Objective - Vital Signs Vital signs: Vital Signs Temp 98.7 F 01/22/25 19:30 Pulse 74 01/23/25 06:00 Resp 26 H 01/23/25 06:00 BP 97/55 01/23/25 06:00 Pulse Ox 98 01/23/25 06:00 FiO2 9 01/23/25 02:30 Intake & Output 01/22/25 01/22/25 01/23/25 06:59 18:59 06:59 Intake Total 473 848 4408 Output Total 895 2770 845 Balance -645 -2160 255 Weight 114.7 kg 105.2 kg Intake: Intake, IV Titration 250 250 Amount DOBUTamine DRIP 500 mg In 250 250 Dextrose/Water 1 250ml. bag @ 2.5 MCG/KG/MIN 8. 438 mls/hr IV .Q24H [facility] Rx#:[id number] Oral 360 1100 Output: Urine 895 970 845 Other 1800 Other: Voiding Method Indwelling Catheter Indwelling Catheter Indwelling Catheter - Labs CBC & Chem 7: 01/23/25 03:41 01/23/25 03:41 Labs: Abnormal Lab Results - Last 24 Hours (Table) 01/22/25 01/23/25 01/23/25 Range/Units 15:22 03:41 03:41 RBC 3.16 L (4.30-5.90) m/uL Hgb 8.0 L (13.0-17.5) gm/dL Hct 27.2 L (39.0-53.0) % MCHC 29.5 L (31.0-37.0) g/dL RDW 20.3 H (11.5-15.5) % Lymphocytes # 0.6 L (1.0-4.8) k/uL ABG pCO2 49 H (35-45) mmHg ABG HCO3 34 H (21-25) mmol/L ABG Total CO2 35 H (19-24) mmol/L ABG O2 Saturation 97.9 H (94-97) % Hemoglobin 8.1 L (13.0-17.5) gm/dL Sodium 135 L (137-145) mmol/L Chloride 94 L (98-107) mmol/L Carbon Dioxide 36 H (22-30) mmol/L BUN 66 H (9-20) mg/dL Creatinine 2.36 H (0.66-1.25) mg/dL Glucose 106 H (74-99) mg/dL Alkaline Phosphatase 140 H (38-126) U/L Albumin 2.8 L (3.5-5.0) g/dL Microbiology - Last 24 Hours (Table) 01/22/25 10:13 Gram Stain - Preliminary Pleural Fluid
--- NOTE | 2025-01-23 09:55 | P.PN ---
Subjective Progress Note Date: 01/23/25 This is Rudolph Bajwa NP, I'm dictating on behalf of Dr. Baugh's H&P and A&P. Patient was interviewed and examined. Patient is an 84-year-old male who we were consulted to see secondary to atrial fibrillation and then reconsulted for congestive heart failure and worsening kidney function. Patient has been on a dobutamine infusion for the last couple of days. Renal function continues to demonstrate worsening. Patient is on BiPAP and unable to respond to questions. Thoracentesis was completed yesterday, I discussed with pulmonology who stated the patient does not appear to be much better after the thoracentesis. His blood pressures are borderline low. BUN and creatinine have demonstrated worsening despite dobutamine infusion. GENERAL: Well-appearing, well-nourished and in no acute distress. NECK: Supple without JVD or thyromegaly. LUNGS: Breath sounds clear to auscultation bilaterally. Respiration equal and unlabored. No wheezes, rales or rhonchi. HEART: Regular rate and rhythm without murmurs, rubs or gallops. S1 and S2 heard. EXTREMITIES: Normal range of motion, no edema. No clubbing or cyanosis. Peripheral pulses intact and strong. VITALS: Pulse 87, respirations 32, blood pressure 104/54, O2 saturation 95% on BiPAP TELEMETRY: Sinus mechanism LABS: White count 6.6, hemoglobin 8, platelets 157, sodium 135, potassium 3.9, BUN 66, creatinine 2.36, magnesium 2.2 IMPRESSION: 1. Persistent atrial fibrillation with controlled ventricular response 2. Acute GI bleed with acute blood loss anemia 3. Hemorrhagic shock, cardiogenic shock 4. Acute systolic heart failure with stress-induced cardiomyopathy, EF 15 to 20% 5. NSTEMI type II 6. History of CAD status post PCI of the RCA residual circumflex FLOOR GRINDER and left main and LAD disease 7. CKD stage IIIb 8. Ischemic cardiomyopathy with previous EF of 40 to 45% 9. Moderate to severe pulmonary hypertension 10. Hypertension 11. Hyperlipidemia 12. Remote history of tobacco use 13. History of stroke PLAN: No improvement on dobutamine, stopped. Failure of dobutamine trial. Defer further renal issues to nephrology. No further recommendations from a cardiology standpoint. Objective - Vital Signs Vital signs: Vital Signs Temp 98.4 F 01/23/25 08:00 Pulse 87 01/23/25 09:30 Resp 32 H 01/23/25 09:30 BP 104/54 01/23/25 09:30 Pulse Ox 87 L 01/23/25 09:30 FiO2 40 01/23/25 09:44 Intake & Output 01/22/25 01/23/25 01/23/25 18:59 06:59 18:59 Intake Total 610 1100 220 Output Total 2770 845 135 Balance -2160 255 85 Weight 105.2 kg Intake: Intake, IV Titration 250 Amount DOBUTamine DRIP 500 mg In 250 Dextrose/Water 1 250ml. bag @ 2.5 MCG/KG/MIN 8. 438 mls/hr IV .Q24H [facility] Rx#:[id number] Oral 360 1100 220 Output: Urine 970 845 135 Other 1800 Other: Voiding Method Indwelling Catheter Indwelling Catheter - Labs CBC & Chem 7: 01/23/25 03:41 01/23/25 03:41 Labs: Abnormal Lab Results - Last 24 Hours (Table) 01/22/25 01/23/25 01/23/25 Range/Units 15:22 03:41 03:41 RBC 3.16 L (4.30-5.90) m/uL Hgb 8.0 L (13.0-17.5) gm/dL Hct 27.2 L (39.0-53.0) % MCHC 29.5 L (31.0-37.0) g/dL RDW 20.3 H (11.5-15.5) % Lymphocytes # 0.6 L (1.0-4.8) k/uL ABG pCO2 49 H (35-45) mmHg ABG HCO3 34 H (21-25) mmol/L ABG Total CO2 35 H (19-24) mmol/L ABG O2 Saturation 97.9 H (94-97) % Hemoglobin 8.1 L (13.0-17.5) gm/dL Sodium 135 L (137-145) mmol/L Chloride 94 L (98-107) mmol/L Carbon Dioxide 36 H (22-30) mmol/L BUN 66 H (9-20) mg/dL Creatinine 2.36 H (0.66-1.25) mg/dL Glucose 106 H (74-99) mg/dL Alkaline Phosphatase 140 H (38-126) U/L Albumin 2.8 L (3.5-5.0) g/dL Microbiology - Last 24 Hours (Table) 01/22/25 10:13 Gram Stain - Preliminary Pleural Fluid
--- NOTE | 2025-01-23 11:27 | P.PN ---
Subjective Patient is seen for follow-up for acute kidney injury. Underlying chronic kidney disease stage IIIb with baseline creatinine around 1.4 to 1.5 mg/dL. Renal function had been stable with serum creatinine at 2.1, today the creatinine is elevated at 2.3. Dobutamine has been discontinued as there has not been any significant improvement. Patient remains short of breath. Currently maintained on BiPAP. Status post thoracentesis today with 1.8 L. Objective - Vital Signs Vital signs: Vital Signs Temp 98.4 F 01/23/25 08:00 Pulse 87 01/23/25 09:30 Resp 32 H 01/23/25 09:30 BP 104/54 01/23/25 09:30 Pulse Ox 87 L 01/23/25 09:30 FiO2 40 01/23/25 09:44 Intake & Output 01/22/25 01/23/25 01/23/25 18:59 06:59 18:59 Intake Total 610 1100 220 Output Total 2770 845 135 Balance -2160 255 85 Weight 105.2 kg Intake: Intake, IV Titration 250 Amount DOBUTamine DRIP 500 mg In 250 Dextrose/Water 1 250ml. bag @ 2.5 MCG/KG/MIN 8. 438 mls/hr IV .Q24H [facility] Rx#:[id number] Oral 360 1100 220 Output: Urine 970 845 135 Other 1800 Other: Voiding Method Indwelling Catheter Indwelling Catheter Indwelling Catheter - Exam Patient is awake, comfortable Examination of the heart S1 and S2 Examination of the lungs bilateral breath sounds are heard Abdomen is soft nontender Examination of lower extremities shows chronic skin changes, 2+ edema - Labs CBC & Chem 7: 01/23/25 03:41 01/23/25 03:41 Labs: Abnormal Lab Results - Last 24 Hours (Table) 01/22/25 01/23/25 01/23/25 Range/Units 15:22 03:41 03:41 RBC 3.16 L (4.30-5.90) m/uL Hgb 8.0 L (13.0-17.5) gm/dL Hct 27.2 L (39.0-53.0) % MCHC 29.5 L (31.0-37.0) g/dL RDW 20.3 H (11.5-15.5) % Lymphocytes # 0.6 L (1.0-4.8) k/uL ABG pCO2 49 H (35-45) mmHg ABG HCO3 34 H (21-25) mmol/L ABG Total CO2 35 H (19-24) mmol/L ABG O2 Saturation 97.9 H (94-97) % Hemoglobin 8.1 L (13.0-17.5) gm/dL Sodium 135 L (137-145) mmol/L Chloride 94 L (98-107) mmol/L Carbon Dioxide 36 H (22-30) mmol/L BUN 66 H (9-20) mg/dL Creatinine 2.36 H (0.66-1.25) mg/dL Glucose 106 H (74-99) mg/dL Alkaline Phosphatase 140 H (38-126) U/L Albumin 2.8 L (3.5-5.0) g/dL Microbiology - Last 24 Hours (Table) 01/22/25 10:13 Gram Stain - Preliminary Pleural Fluid Assessment and Plan Assessment: 1. Acute kidney injury secondary to ATN. Renal function stable with creatinine at 2.3 today. Maintained on IV Lasix. No hydronephrosis noted on CT. patient remains volume overloaded. No improvement with dobutamine 2. Chronic kidney disease stage IIIb with baseline creatinine near 1.5 secondary to nephrosclerosis. 3. A-fib with RVR now on oral meds. 4. Acute GI bleed status post blood transfusions this admission. Component of chronic kidney disease. Colonoscopy showed hemorrhoids and diverticulosis with no active bleeding. On Aranesp. 5. Volume overload. 6. Acute on chronic systolic CHF ejection fraction of 15 to 20% with moderate to severe pulmonary hypertension. 7. Hypokalemia from diuresis. Replaced. Better. 8. Hypomagnesemia from diuresis. On oral magnesium oxide. Improved 9. Left pleural effusion status post thoracentesis Plan: Continue with IV Lasix Overall prognosis is poor, consider further discussion of CODE STATUS Continue with aranesp Repeat labs in a.m.
--- NOTE | 2025-01-23 11:38 | P.PN ---
Subjective Progress Note Date: 01/23/25 Principal diagnosis: Acute lower GI bleeding On 01/11/2025, the patient is being seen for a follow-up. The patient this morning is calm and comfortable. Slightly bronchospastic and wheezy on examination. Nevertheless, he denies having any significant shortness of breath and the patient remains on 2 L of oxygen by nasal cannula. The patient is post acute GI bleeding with secondary anemia. The patient underwent a colonoscopy on 01/07/2025 and the patient was found to have a normal appearing colon from rectum to cecum. No evidence of any colitis or malignancy. No evidence of any active bleeding. There was scattered sigmoid diverticulosis and grade 2 hemorrhoids. During the course of this hospitalization, the patient received a total of 4 units of packed RBC, 2 units of fresh frozen plasma and 1 unit of platelet. The patient is currently on IV hydration. Hemoglobin is at 7.8. On a separate note, the patient is in atrial fibrillation. He remains on amiodarone at 0.5 mg/min. Rate is under better control for now. His echocardiogram done on 01/07/2025 showed evidence of severe LV dysfunction with an ejection fraction of 15 to 20% along with low-grade aortic stenosis without any regurgitation, moderate to severe pulmonary pretension with estimated right ventricular systolic pressure of 54. The patient remains on IV Lasix 40 mg every 12 hours. Fluid balance is negative over the past 24 hours and this is in the order of - 2.6 L. Chest x-ray from today is still showing pulm vascular congestion and cardiomegaly and small bilateral pleural effusions. On today's evaluation of 01/12/2025, the patient is stable on 2 L of oxygen by nasal cannula. No reported GI bleeding. Hemoglobin stable at 8.1. Platelet count is at 89. BUN 35 with a creatinine 1.7. Sodium is at 134 with a potassium level is at 4.0. The patient continues to diurese with IV Lasix. The patient is receiving Lasix 40 mg IV every 12 hours. Overall fluid balance has been -2.6 L over the past 24 hours and the patient is headed towards another 1.1 L negative fluid balance for today. The follow-up chest x-ray from today shows improvement in the pulm vascular congestion. There is still persistent pulm vessel congestion bilateral pleural effusion along with cardiomegaly. The p [facility] is awake and alert. Denies having any specific complaints. Denies having any chest pain. No other significant events overnight. He is known to have systolic heart failure with severe LV dysfunction ejection fraction of 15 to 20%. He also has a low-grade aortic stenosis without regurgitation and moderate to severe pulm hypertension with a PA pressure of 54. On today's evaluation of 01/13/2025, the patient is doing well and he has no specific complaints. He remains on 2 L of oxygen by nasal cannula. He remains in atrial fibrillation. He is receiving Lasix and he was given 40 mg of IV Lasix and additional dose in addition to his oral medication. His fluid balance is -1.1 L over the past 24 hours. Chest x-ray still showing findings consistent with CHF with pulm vascular congestion and cardiomegaly and blunting of the costophrenic angles indicative of an underlying pleural effusions bilaterally. The patient denies having any significant chest pain or shortness of breath no evidence of any GI bleeding. Hemoglobin remained stable at 8 with a white cell count of 7.9. Platelet count is 104. BUN is 40 with a creatinine of 1.6 and a sodium levels at 133. The patient is on metoprolol 12.5 mg p.o. twice daily and amiodarone 400 mg p.o. twice daily and midodrine was also added by nephrology. Being given Aranesp for chronic anemia. On 01/14/2025, the patient is calm and comfortable. Shows no signs of any GI bleeding. Continues to have some pulm vessel congestion and crackles in lung base bilaterally and the patient is currently on 2 L of oxygen by nasal cannula. The patient is currently on oral Lasix. Remains on DuoNeb nebulized treatments [id number]. Remains on metoprolol 12.5 mg p.o. twice a day. No anticoagulants for now. Hemoglobin stable at 8 from yesterday. No new labs are available from today. On 01/15/2025, patient is calm and comfortable. No evidence of any GI bleeding. No respiratory difficulties. The patient remains on Lasix 40 mg p.o. twice a day. Nephrology added midodrine. The patient was consultation with a hemoglobin of 8 and platelet count of 155. BUN is 16 with a creatinine of 2.19 and nephrology on the case. Hemoglobin stable at 8.0. No other significant events overnight. Nephrology on the case. Midodrine was added. Noted the patient has impaired LV function with an EF of around 15 to 20% with moderate severe pulmonary hypertension. Patient was seen today on 01/21/2025, this patient was last seen by Dr. Lia on 01/15/2025, he is found as he was in the ICU with multiple comorbidities including severe LV dysfunction, moderate-severe pulmonary hypertension, acute GI bleeding, and eventually Dr. Lai signed off this patient and we have not been seeing until I was called to see him again today as he was transferred back to the ICU for dobutamine infusion. Apparently the patient has severe LV dysfunction and recurrent episodes of congestive heart failure being followed by cardiology, his ejection fraction is around 15 to 20% it is also associated with moderate severe pulmonary hypertension. Patient is now on dobutamine at 5 mcg/kg/min he is on Lasix 60 mg IV push every 12 hours, and he is on room air. Not in any distress, WBC count is 5.5 hemoglobin 7.9 basic metabolic profile is normal BUN is 65 creatinine 2.16, chest x-ray yesterday showed evidence of interstitial edema and small left-sided pleural effusion. Patient was seen today on follow-up 01/22/2025, remains in the ICU, continues to have abnormal chest x-ray and abnormal ultrasound of the chest, hence I went ahead and performed a left-sided thoracentesis on this patient, and I was able to drain 1800 cc of fluid. Patient tolerated the procedure well, patient was placed on dobutamine when he was transferred out to the ICU, today I cut down his dobutamine to 2.5 mcg/kg/min, patient remains on diuretics with good resp onse to diuretics, looking at his previous echocardiogram, patient had ischemic cardiomyopathy with ejection fraction of 40 to 45%, however recent admission revealed his ejection fraction is down to 15 to 20%. Patient is quite ill, he has multiple comorbidities, and I will continue to monitor the patient in the ICU today although he felt much better after left-sided thoracentesis which was done with ultrasound guidance at bedside. WBC count today is 5.3 hemoglobin 8.1 electrolytes are normal bicarb is 35 BUN is 63 creatinine 2.16 Seen today on 01/23/2025, patient remains in the ICU, remains on dobutamine at 2.5 mcg/kg/min on 6 L high flow nasal cannula, patient refused to go on BiPAP yesterday. Remains on Lasix 60 mg IV push twice daily, patient has good urine output good response to diuretics and dobutamine, but nonetheless continues to have evidence of congestive heart failure based on chest x-ray findings and based on clinical findings. Yesterday I was able to drain 1800 cc of transudative pleural effusion from the left pleural space, but seems to be reaccumulating slowly as noted on the chest x-ray today. Patient clearly has severe LV dysfunction, and his overall prognostic picture is extremely poor. I discussed his condition with the patient, and he clearly would like to have DNR CODE STATUS, does not want to go on life support, and if his condition gets worse patient would like to pass peacefully and comfortably. Hence CODE STATUS was changed to DNR CODE STATUS, family will be updated by the nurse on his request and his condition. Labs today show WBC of 6.6 hemoglobin is 8 apparently had an ABG last night showed a pO2 of 86 pCO2 45 pH of 7.45, basic metabolic profile is normal BUN is 66 creatinine 2.36 pleural effusion results were reviewed and it is transudative in nature with low protein and low LDH Objective - Vital Signs Vital signs: Vital Signs Temp 98.4 F 01/23/25 08:00 Pulse 87 01/23/25 09:30 Resp 32 H 01/23/25 09:30 BP 104/54 01/23/25 09:30 Pulse Ox 87 L 01/23/25 09:30 FiO2 40 01/23/25 09:44 Intake & Output 01/22/25 01/23/25 01/23/25 18:59 06:59 18:59 Intake Total 610 1100 220 Output Total 2770 845 135 Balance -2160 255 85 Weight 105.2 kg Intake: Intake, IV Titration 250 Amount DOBUTamine DRIP 500 mg In 250 Dextrose/Water 1 250ml. bag @ 2.5 MCG/KG/MIN 8. 438 mls/hr IV .Q24H [facility] Rx#:[id number] Oral 360 1100 220 Output: Urine 970 845 135 Other 1800 Other: Voiding Method Indwelling Catheter Indwelling Catheter Indwelling Catheter - Exam General: Revealed 84-year-old white male in no distress on high flow nasal cannula at 6 L HEENT examination is grossly unremarkable. Mucous membranes are moist. No oral lesions. Neck supple. Full range of motion. No adenopathy thyromegaly or neck vein distention. Cardiovascular examination reveals irregular consistent with atrial fibrillation. No S3 or S4. No discernible murmur noted. Lungs: Crackles and rhonchi noted bilaterally at the bases Abdomen soft bowel sounds are heard. No masses or tenderness. Extremities are intact. No cyanosis clubbing or edema. Skin is without rash or lesion. Neurologic: Alert oriented x 3 no focal deficit Psychiatric: Normal mood affect and no mental status examination. - Labs CBC & Chem 7: 01/23/25 03:41 01/23/25 03:41 Labs: Abnormal Lab Results - Last 24 Hours (Table) 01/22/25 01/23/25 01/23/25 Range/Units 15:22 03:41 03:41 RBC 3.16 L (4.30-5.90) m/uL Hgb 8.0 L (13.0-17.5) gm/dL Hct 27.2 L (39.0-53.0) % MCHC 29.5 L (31.0-37.0) g/dL RDW 20.3 H (11.5-15.5) % Lymphocytes # 0.6 L (1.0-4.8) k/uL ABG pCO2 49 H (35-45) mmHg ABG HCO3 34 H (21-25) mmol/L ABG Total CO2 35 H (19-24) mmol/L ABG O2 Saturation 97.9 H (94-97) % Hemoglobin 8.1 L (13.0-17.5) gm/dL Sodium 135 L (137-145) mmol/L Chloride 94 L (98-107) mmol/L Carbon Dioxide 36 H (22-30) mmol/L BUN 66 H (9-20) mg/dL Creatinine 2.36 H (0.66-1.25) mg/dL Glucose 106 H (74-99) mg/dL Alkaline Phosphatase 140 H (38-126) U/L Albumin 2.8 L (3.5-5.0) g/dL Microbiology - Last 24 Hours (Table) 01/22/25 10:13 Gram Stain - Preliminary Pleural Fluid Assessment and Plan Assessment: Impression: Acute hypoxic respiratory failure secondary to pulmonary edema and severe systolic dysfunction and bilateral pleural effusions Acute on chronic systolic congestive heart failure with severe LV dysfunction Severe pulmonary hypertension Acute lower GI bleeding, resolved Acute anemia secondary to above Acute non-ST elevation myocardial infarction Chronic atrial fibrillation 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 Continue Lasix, Continue midodrine for hypotension Continue iron supplement, for anemia Continue to monitor labs daily including CBC and basic metabolic profile, renal profile Continue to monitor I's and O's Continue bronchodilators/DuoNeb Prognosis is poor and guarded We will continue to follow Critical care time is over 30 minutes. Time with Patient: Greater than 30
[2025-01-23] MEDS: DOBUTamine DRIP 500 MG in DEXTROSE/WATER 1 250ML.BAG IV SCH (13:00)
--- NOTE | 2025-01-23 17:24 | PN ---
PROGRESS NOTE DATE OF SERVICE: 01/21/2025 SUBJECTIVE: This is an 84-year-old gentleman admitted with significant swelling and CHF, is on dobutamine and dopamine drip. Ejection fraction is significantly elevated. The cytology of the pleural fluid is pending. PAST MEDICAL HISTORY: Reviewed. REVIEW OF SYSTEMS: 14-point review of systems is negative except as mentioned earlier. CURRENT MEDICATIONS: Reviewed. PHYSICAL EXAMINATION: VITAL SIGNS: Pulse is 84, blood pressure 102/89, respirations 26. HEENT: Conjunctivae normal. NECK: No JVD. CARDIOVASCULAR: S1, S2. RESPIRATIONS: Bilateral scattered rhonchi. ABDOMEN: Soft, obese. LEGS: Bilateral leg edema. LABORATORY DATA: Hemoglobin 8. Rest of the labs are noted. Creatinine is 2.36. ASSESSMENT: 1. Congestive heart failure with acute exacerbation. 2. Acute on chronic renal failure. 3. Anemia, multifactorial. 4. Bilateral pleural effusion, status post thoracocentesis. 5. Severe cardiomyopathy with ejection fraction depressed. 6. Multiple complex medical issues. RECOMMEND: Continue current management. Continue the dobutamine and Lasix. I will recommend repeat labs. Avoid nephrotoxic medications. Guarded prognosis. Further recommendations. See orders for details. MMODL / IJN: [id number] /
[2025-01-24 06:01] LABS: Anisocytosis Moderate; Basophils % (A) 0 %; Eosinophils % (A) 0 %; HCT 25.1 % (39.0-53.0); HGB 7.6 gm/dL (13.0-17.5); Hypochromasia Marked; Lymphocytes # (A) 0.5 k/uL (1.0-4.8); Lymphocytes % (A) 10 %; MCH 25.7 pg (25.0-35.0); MCHC 30.2 g/dL (31.0-37.0); MCV 85.2 fL (80.0-100.0); Mean Platelet Volume 8.1; Microcytosis Slight; Monocytes # (A) 0.3 k/uL (0-1.0); Monocytes % (A) 5 %; Neutrophils # (A) 4.4 k/uL (1.3-7.7); Neutrophils % (A) 83 %; Platelet Count 123 k/uL (150-450); RBC 2.94 m/uL (4.30-5.90); RDW 20.3 % (11.5-15.5); WBC 5.2 k/uL (3.8-10.6)
[2025-01-24 06:15] LABS: ALT 30 U/L (4-49); AST 53 U/L (17-59); African American GFR (CKD) 29 (>60 ml/min/1.73 sqM); Albumin 2.6 g/dL (3.5-5.0); Alkaline Phosphatase 134 U/L (38-126); Anion Gap 6 mmol/L; Blood Urea Nitrogen 62 mg/dL (9-20); Calcium 7.9 mg/dL (8.4-10.2); Carbon Dioxide 36 mmol/L (22-30); Chloride 92 mmol/L (98-107); Glucose 101 mg/dL (74-99); Magnesium 2.1 mg/dL (1.6-2.3); Non-African American GFR(CKD) 25 (>60 ml/min/1.73 sqM); Potassium 3.4 mmol/L (3.5-5.1); Sodium 134 mmol/L (137-145); Total Bilirubin 0.6 mg/dL (0.2-1.3); Total Protein 6.4 g/dL (6.3-8.2)
--- NOTE | 2025-01-24 07:05 | XR ---
EXAMINATION TYPE: XR chest 1V portable DATE OF EXAM: 01/24/2025 CLINICAL INDICATION: Male, 84 years old with history of CHF exacerbation post thoracentesis, progress study. TECHNIQUE: Single AP portable upright view of the chest is obtained. COMPARISON: Chest x-ray from one day earlier and older studies. FINDINGS: Persistent cardiomegaly with bilateral multifocal increased opacities greatest in the lowe r lungs. Osseous structures are intact. IMPRESSION: Findings favor CHF exacerbation/fluid overload state. Areas of underlying acute infiltrat e not excluded particularly in the bilateral lower lungs. Correlate clinically. No significant change from one day earlier. [facility], , 01/24/2025 7:02 AM
--- NOTE | 2025-01-24 11:18 | P.PN ---
Subjective Patient is seen for follow-up for acute kidney injury. Underlying chronic kidney disease stage IIIb with baseline creatinine around 1.4 to 1.5 mg/dL. Renal function had been stable with serum creatinine at 2.3 for the last 2 days. Dobutamine has been discontinued as there has not been any significant improvement. Shortness of breath has improved Off of BiPAP Status post thoracentesis yesterday with 1.8 L. Objective - Vital Signs Vital signs: Vital Signs Temp 98.4 F 01/24/25 08:00 Pulse 84 01/24/25 10:30 Resp 17 01/24/25 10:30 BP 99/61 01/24/25 10:30 Pulse Ox 98 01/24/25 10:30 FiO2 40 01/24/25 06:00 Intake & Output 01/23/25 01/24/25 01/24/25 18:59 06:59 18:59 Intake Total 325.623 5879.052 349.037 Output Total 980 1085 305 Balance -713.544 664.052 44.037 Weight 112.4 kg Intake: Intake, IV Titration 46.456 329.052 129.037 Amount DOBUTamine DRIP 500 mg In 46.456 329.052 129.037 Dextrose/Water 1 250ml. bag @ 5 MCG/KG/MIN 17.205 mls/hr IV .[id number] [facility] Rx#:[id number] Oral 220 1420 220 Output: Urine 980 1085 305 Other: Voiding Method Indwelling Catheter Indwelling Catheter Indwelling Catheter # Voids 1 - Exam Patient is awake, comfortable Examination of the heart S1 and S2 Examination of the lungs bilateral breath sounds are heard Abdomen is soft nontender Examination of lower extremities shows chronic skin changes, 2+ edema - Labs CBC & Chem 7: 01/24/25 05:31 01/24/25 05:31 Labs: Abnormal Lab Results - Last 24 Hours (Table) 01/24/25 01/24/25 Range/Units 05:31 05:31 RBC 2.94 L (4.30-5.90) m/uL Hgb 7.6 L (13.0-17.5) gm/dL Hct 25.1 L (39.0-53.0) % MCHC 30.2 L (31.0-37.0) g/dL RDW 20.3 H (11.5-15.5) % Plt Count 123 L (150-450) k/uL Lymphocytes # 0.5 L (1.0-4.8) k/uL Sodium 134 L (137-145) mmol/L Potassium 3.4 L (3.5-5.1) mmol/L Chloride 92 L (98-107) mmol/L Carbon Dioxide 36 H (22-30) mmol/L BUN 62 H (9-20) mg/dL Creatinine 2.34 H (0.66-1.25) mg/dL Glucose 101 H (74-99) mg/dL Calcium 7.9 L (8.4-10.2) mg/dL Alkaline Phosphatase 134 H (38-126) U/L Albumin 2.6 L (3.5-5.0) g/dL Microbiology - Last 24 Hours (Table) 01/22/25 10:13 Gram Stain - Preliminary Pleural Fluid Body Fluid Culture - Preliminary Assessment and Plan Assessment: 1. Acute kidney injury secondary to ATN. Renal function stable with creatinine at 2.3 today. Maintained on IV Lasix. No hydronephrosis noted on CT. patient remains volume overloaded. No improvement with dobutamine 2. Chronic kidney disease stage IIIb with baseline creatinine near 1.5 secondary to nephrosclerosis. 3. A-fib with RVR now on oral meds. 4. Acute GI bleed status post blood transfusions this admission. Component of chronic kidney disease. Colonoscopy showed hemorrhoids and diverticulosis with no active bleeding. On Aranesp. 5. Volume overload. 6. Acute on chronic systolic CHF ejection fraction of 15 to 20% with moderate to severe pulmonary hypertension. 7. Hypokalemia from diuresis. Replaced. Better. 8. Hypomagnesemia from diuresis. On oral magnesium oxide. Improved 9. Left pleural effusion status post thoracentesis Plan: Continue with IV Lasix Replace potassium Overall prognosis is poor, consider further discussion of CODE STATUS Continue with aranesp Repeat labs in a.m.
[2025-01-24] MEDS: POTASSIUM BICARBONATE/CIT AC 20 MEQ TABLET.EFF NG-TUBE SCH (11:37)
--- NOTE | 2025-01-24 12:12 | P.PN ---
Subjective Progress Note Date: 01/24/25 Principal diagnosis: Acute lower GI bleeding On 01/11/2025, the patient is being seen for a follow-up. The patient this morning is calm and comfortable. Slightly bronchospastic and wheezy on examination. Nevertheless, he denies having any significant shortness of breath and the patient remains on 2 L of oxygen by nasal cannula. The patient is post acute GI bleeding with secondary anemia. The patient underwent a colonoscopy on 01/07/2025 and the patient was found to have a normal appearing colon from rectum to cecum. No evidence of any colitis or malignancy. No evidence of any active bleeding. There was scattered sigmoid diverticulosis and grade 2 hemorrhoids. During the course of this hospitalization, the patient received a total of 4 units of packed RBC, 2 units of fresh frozen plasma and 1 unit of platelet. The patient is currently on IV hydration. Hemoglobin is at 7.8. On a separate note, the patient is in atrial fibrillation. He remains on amiodarone at 0.5 mg/min. Rate is under better control for now. His echocardiogram done on 01/07/2025 showed evidence of severe LV dysfunction with an ejection fraction of 15 to 20% along with low-grade aortic stenosis without any regurgitation, moderate to severe pulmonary pretension with estimated right ventricular systolic pressure of 54. The patient remains on IV Lasix 40 mg every 12 hours. Fluid balance is negative over the past 24 hours and this is in the order of - 2.6 L. Chest x-ray from today is still showing pulm vascular congestion and cardiomegaly and small bilateral pleural effusions. On today's evaluation of 01/12/2025, the patient is stable on 2 L of oxygen by nasal cannula. No reported GI bleeding. Hemoglobin stable at 8.1. Platelet count is at 89. BUN 35 with a creatinine 1.7. Sodium is at 134 with a potassium level is at 4.0. The patient continues to diurese with IV Lasix. The patient is receiving Lasix 40 mg IV every 12 hours. Overall fluid balance has been -2.6 L over the past 24 hours and the patient is headed towards another 1.1 L negative fluid balance for today. The follow-up chest x-ray from today shows improvement in the pulm vascular congestion. There is still persistent pulm vessel congestion bilateral pleural effusion along with cardiomegaly. [facility] Denies having any specific complaints. Denies having any chest pain. No other significant events overnight. He is known to have systolic heart failure with severe LV dysfunction ejection fraction of 15 to 20%. He also has a low-grade aortic stenosis without regurgitation and moderate to severe pulm hypertension with a PA pressure of 54. On today's evaluation of 01/13/2025, the patient is doing well and he has no specific complaints. He remains on 2 L of oxygen by nasal cannula. He remains in atrial fibrillation. He is receiving Lasix and he was given 40 mg of IV Lasix and additional dose in addition to his oral medication. His fluid balance is -1.1 L over the past 24 hours. Chest x-ray still showing findings consistent with CHF with pulm vascular congestion and cardiomegaly and blunting of the costophrenic angles indicative of an underlying pleural effusions bilaterally. The patient denies having any significant chest pain or shortness of breath no evidence of any GI bleeding. Hemoglobin remained stable at 8 with a white cell count of 7.9. Platelet count is 104. BUN is 40 with a creatinine of 1.6 and a sodium levels at 133. The patient is on metoprolol 12.5 mg p.o. twice daily and amiodarone 400 mg p.o. twice daily and midodrine was also added by nephrology. Being given Aranesp for chronic anemia. On 01/14/2025, the patient is calm and comfortable. Shows no signs of any GI bleeding. Continues to have some pulm vessel congestion and crackles in lung base bilaterally and the patient is currently on 2 L of oxygen by nasal cannula. The patient is currently on oral Lasix. Remains on DuoNeb nebulized treatments [id number]. Remains on metoprolol 12.5 mg p.o. twice a day. No anticoagulants for now. Hemoglobin stable at 8 from yesterday. No new labs are available from today. On 01/15/2025, patient is calm and comfortable. No evidence of any GI bleeding. No respiratory difficulties. The patient remains on Lasix 40 mg p.o. twice a day. Nephrology added midodrine. The patient was consultation with a hemoglobin of 8 and platelet count of 155. BUN is 16 with a creatinine of 2.19 and nephrology on the case. Hemoglobin stable at 8.0. No other significant events overnight. Nephrology on the case. Midodrine was added. Noted the patient has impaired LV function with an EF of around 15 to 20% with moderate severe pulmonary hypertension. Patient was seen today on 01/21/2025, this patient was last seen by Dr. Lai on 01/15/2025, he is found as he was in the ICU with multiple comorbidities including severe LV dysfunction, moderate-severe pulmonary hypertension, acute GI bleeding, and eventually Dr. Lai signed off this patient and we have not been seeing until I was called to see him again today as he was transferred back to the ICU for dobutamine infusion. Apparently the patient has severe LV dysfunction and recurrent episodes of congestive heart failure being followed by cardiology, his ejection fraction is around 15 to 20% it is also associated with moderate severe pulmonary hypertension. Patient is now on dobutamine at 5 mcg/kg/min he is on Lasix 60 mg IV push every 12 hours, and he is on room air. Not in any distress, WBC count is 5.5 hemoglobin 7.9 basic metabolic profile is normal BUN is 65 creatinine 2.16, chest x-ray yesterday showed evidence of interstitial edema and small left-sided pleural effusion. Patient was seen today on follow-up 01/22/2025, remains in the ICU, continues to have abnormal chest x-ray and abnormal ultrasound of the chest, hence I went ahead and performed a left-sided thoracentesis on this patient, and I was able to drain 1800 cc of fluid. Patient tolerated the procedure well, patient was placed on dobutamine when he was transferred out to the ICU, today I cut down his dobutamine to 2.5 mcg/kg/min, patient remains on diuretics with good resp onse to diuretics, looking at his previous echocardiogram, patient had ischemic cardiomyopathy with ejection fraction of 40 to 45%, however recent admission revealed his ejection fraction is down to 15 to 20%. Patient is quite ill, he has multiple comorbidities, and I will continue to monitor the patient in the ICU today although he felt much better after left-sided thoracentesis which was done with ultrasound guidance at bedside. WBC count today is 5.3 hemoglobin 8.1 electrolytes are normal bicarb is 35 BUN is 63 creatinine 2.16 Seen today on 01/23/2025, patient remains in the ICU, remains on dobutamine at 2.5 mcg/kg/min on 6 L high flow nasal cannula, patient refused to go on BiPAP yesterday. Remains on Lasix 60 mg IV push twice daily, patient has good urine output good response to diuretics and dobutamine, but nonetheless continues to have evidence of congestive heart failure based on chest x-ray findings and based on clinical findings. Yesterday I was able to drain 1800 cc of transudative pleural effusion from the left pleural space, but seems to be reaccumulating slowly as noted on the chest x-ray today. Patient clearly has severe LV dysfunction, and his overall prognostic picture is extremely poor. I discussed his condition with the patient, and he clearly would like to have DNR CODE STATUS, does not want to go on life support, and if his condition gets worse patient would like to pass peacefully and comfortably. Hence CODE STATUS was changed to DNR CODE STATUS, family will be updated by the nurse on his request and his condition. Labs today show WBC of 6.6 hemoglobin is 8 apparently had an ABG last night showed a pO2 of 86 pCO2 45 pH of 7.45, basic metabolic profile is normal BUN is 66 creatinine 2.36 pleural effusion results were reviewed and it is transudative in nature with low protein and low LDH just like very normal renal Patient was seen today on 01/24/2025, remains in the ICU, had to go up on dobutamine yesterday up to as high as 10 mg/kg/min, could not stop it as his blood pressure kept drifting down on lower doses of dobutamine, and I prefer dobutamine over norepinephrine at this point considering his severe LV dysfunction and cardiomyopathy. At this point in time dobutamine seems to be working well, he continues to diurese, continues to maintain adequate blood pressure with dobutamine, and once the dose went down blood pressure went down significantly. Patient is on 11 L high flow nasal cannula chest x-ray continues to show evidence of pulmonary edema. On BiPAP 15/5 and 40% FiO2 at times when his condition gets worse. Patient remains on diuretics, remains in negative fluid balance. Renal functioning is about the same with a BUN of 62 creatinine 2.34, electrolytes are relatively unremarkable except for low potassium of 3.4. Chest x-ray continues to show pulmonary edema and small bilateral pleural effusions remind you patient had left-sided thoracentesis few days ago, and I was able to drain 1800 cc of transudative fluid. Objective - Vital Signs Vital signs: Vital Signs Temp 98.4 F 01/24/25 08:00 Pulse 84 01/24/25 11:56 Resp 31 H 01/24/25 11:15 BP 96/60 01/24/25 11:15 Pulse Ox 99 01/24/25 11:15 FiO2 40 01/24/25 06:00 Intake & Output 01/23/25 01/24/25 01/24/25 18:59 06:59 18:59 Intake Total 255.350 9144.052 387.749 Output Total 980 1085 430 Balance -713.544 664.052 -42.251 Weight 112.4 kg Intake: Intake, IV Titration 46.456 329.052 167.749 Amount DOBUTamine DRIP 500 mg In 46.456 329.052 167.749 Dextrose/Water 1 250ml. bag @ 5 MCG/KG/MIN 17.205 mls/hr IV .[id number] [facility] Rx#:[id number] Oral 220 1420 220 Output: Urine 980 1085 430 Other: Voiding Method Indwelling Catheter Indwelling Catheter Indwelling Catheter # Voids 1 - Exam General: Revealed 84-year-old white male in no distress on high flow nasal cannula 11 L, intermittently on BiPAP HEENT examination is grossly unremarkable. Mucous membranes are moist. No oral lesions. Neck supple. Full range of motion. No adenopathy thyromegaly or neck vein distention. Cardiovascular examination reveals irregular consistent with atrial fibrillation. No S3 or S4. No discernible murmur noted. Lungs: Crackles and rhonchi noted bilaterally at the bases Abdomen soft bowel sounds are heard. No masses or tenderness. Extremities are intact. No cyanosis clubbing or edema. Skin is without rash or lesion. Neurologic: Alert oriented x 3 no focal deficit Psychiatric: Normal mood affect and no mental status examination. - Labs CBC & Chem 7: 01/24/25 05:31 01/24/25 05:31 Labs: Abnormal Lab Results - Last 24 Hours (Table) 01/24/25 01/24/25 Range/Units 05:31 05:31 RBC 2.94 L (4.30-5.90) m/uL Hgb 7.6 L (13.0-17.5) gm/dL Hct 25.1 L (39.0-53.0) % MCHC 30.2 L (31.0-37.0) g/dL RDW 20.3 H (11.5-15.5) % Plt Count 123 L (150-450) k/uL Lymphocytes # 0.5 L (1.0-4.8) k/uL Sodium 134 L (137-145) mmol/L Potassium 3.4 L (3.5-5.1) mmol/L Chloride 92 L (98-107) mmol/L Carbon Dioxide 36 H (22-30) mmol/L BUN 62 H (9-20) mg/dL Creatinine 2.34 H (0.66-1.25) mg/dL Glucose 101 H (74-99) mg/dL Calcium 7.9 L (8.4-10.2) mg/dL Alkaline Phosphatase 134 H (38-126) U/L Albumin 2.6 L (3.5-5.0) g/dL Microbiology - Last 24 Hours (Table) 01/22/25 10:13 Gram Stain - Preliminary Pleural Fluid Body Fluid Culture - Preliminary Assessment and Plan Assessment: Impression: Acute hypoxic respiratory failure secondary to pulmonary edema and severe systolic dysfunction and bilateral pleural effusions Acute on chronic systolic congestive heart failure with severe LV dysfunction Severe pulmonary hypertension Acute lower GI bleeding, resolved Acute anemia secondary to above Acute non-ST elevation myocardial infarction Chronic atrial fibrillation 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 Continue oxygen and titrate accordingly Continue dobutamine, prefer dobutamine over norepinephrine Continue Lasix, Continue midodrine for hypotension Continue iron supplement, for anemia Continue to monitor daily labs Continue to monitor I's and O's Continue bronchodilators/DuoNeb Prognosis is poor and guarded, patient agreed to DNR CODE STATUS yesterday. Will continue to follow Time with Patient: Less than 30
[2025-01-24] MEDS ORDERED: Magnesium Replacement Protocol 1 EACH MISC MISCELLANE PRN (15:25)
[2025-01-24] MEDS ORDERED: Potassium Replacement Protocol 1 EACH MISC MISCELLANE PRN (15:25)
--- NOTE | 2025-01-24 23:24 | PN ---
PROGRESS NOTE DATE OF SERVICE: 01/24/2025 SUBJECTIVE: This 84-year-old gentleman, admitted with CHF acute exacerbation, multiple complex medical issues. The patient on dobutamine drip at this time. The patient is diuresing. Multiple consultants were following the patient closely. PAST MEDICAL HISTORY: Reviewed. REVIEW OF SYSTEMS: Fourteen-point review of systems negative except as mentioned earlier. CURRENT MEDICATIONS: Reviewed. PHYSICAL EXAMINATION: VITAL SIGNS: Pulse is 73, blood pressure 91/61, and respiration 25. HEENT: Conjunctivae normal. CARDIOVASCULAR: S1, S2. RESPIRATION: Breath sounds diminished at the bases. A few scattered rhonchi. ABDOMEN: Soft and obese. LEGS: Bilateral leg edema. LABORATORY DATA: Hemoglobin 7.6, creatinine is 2.34. Rest of the labs are noted. ASSESSMENT: 1. Congestive heart failure exacerbation, on dobutamine drip. 2. Acute on chronic renal failure. 3. Anemia, multifactorial. 4. Bilateral pleural effusion, status post thoracocentesis. 5. Severe cardiomyopathy, ejection fraction decreased. 6. Multiple complex medical issues. RECOMMENDATIONS AND DISCUSSION: I recommend to continue current medications, continue with the monitoring, symptomatic treatment. Repeat labs in the morning. Supplement potassium. Otherwise, monitor intake and output closely. Closely follow with multiple consultants. Guarded prognosis. Further recommendations to follow. MMODL / IJN: [id number] /
--- NOTE | 2025-01-25 06:49 | XR ---
EXAMINATION TYPE: XR chest 1V portable DATE OF EXAM: 01/25/2025 CLINICAL INDICATION: Male, 84 years old with history of CHF/BiPap Use, progress study. TECHNIQUE: Single AP portable semiupright view of the chest is obtained. COMPARISON: Chest x-ray from one day earlier and older studies. FINDINGS: Persistent cardiomegaly with bilateral multifocal increased opacities greatest in the lowe r lungs. Osseous structures are intact. IMPRESSION: Findings favor CHF exacerbation/fluid overload state. Areas of underlying acute infiltrat e not excluded particularly in the bilateral lower lungs. Correlate clinically. No significant change from one day earlier. [facility], , 01/25/2025 6:47 AM
[2025-01-25 08:00] LABS: Anisocytosis Moderate; Basophils % (A) 0 %; Eosinophils % (A) 0 %; HCT 26.7 % (39.0-53.0); Hypochromasia Marked; Lymphocytes # (A) 0.4 k/uL (1.0-4.8); Lymphocytes % (A) 9 %; MCH 25.5 pg (25.0-35.0); Mean Platelet Volume 8.7; Microcytosis Slight; Monocytes # (A) 0.3 k/uL (0-1.0); Monocytes % (A) 6 %; Neutrophils # (A) 4.1 k/uL (1.3-7.7); Neutrophils % (A) 83 %; Platelet Count 146 k/uL (150-450); RBC 3.15 m/uL (4.30-5.90); RDW 20.3 % (11.5-15.5); WBC 4.9 k/uL (3.8-10.6)
[2025-01-25 08:18] LABS: African American GFR (CKD) 36 (>60 ml/min/1.73 sqM); Anion Gap 2 mmol/L; Blood Urea Nitrogen 67 mg/dL (9-20); Calcium 7.8 mg/dL (8.4-10.2); Carbon Dioxide 39 mmol/L (22-30); Chloride 92 mmol/L (98-107); Glucose 121 mg/dL (74-99); Magnesium 2.1 mg/dL (1.6-2.3); Non-African American GFR(CKD) 31 (>60 ml/min/1.73 sqM); Potassium 3.8 mmol/L (3.5-5.1); Sodium 133 mmol/L (137-145)
[2025-01-25] MEDS: POTASSIUM BICARBONATE/CIT AC 20 MEQ TABLET.EFF NG-TUBE SCH (09:52)
--- NOTE | 2025-01-25 09:53 | P.PN ---
Subjective Patient is seen in follow-up for acute kidney injury on chronic kidney disease. Renal function better. On dobutamine drip and IV Lasix. Has Dykes catheter. Nonoliguric. Vital signs are stable. General: No acute distress. HEENT: On BiPAP. LUNGS: Scattered rhonchi. HEART: Rate and Rhythm are regular. ABDOMEN: Nontender. EXTREMITITES: 2+ edema. Objective - Vital Signs Vital signs: Vital Signs Temp 98.2 F 01/25/25 08:00 Pulse 76 01/25/25 09:30 Resp 18 01/25/25 09:30 BP 110/60 01/25/25 09:30 Pulse Ox 100 01/25/25 09:30 FiO2 40 01/25/25 08:31 Intake & Output 01/24/25 01/25/25 01/25/25 18:59 06:59 18:59 Intake Total 493.273 610.114 Output Total 895 1100 145 Balance -401.727 -489.886 -145 Weight 109.8 kg Intake: Intake, IV Titration 273.273 70.114 Amount DOBUTamine DRIP 500 mg In 273.273 70.114 Dextrose/Water 1 250ml. bag @ 5 MCG/KG/MIN 17.205 mls/hr IV .[id number] [facility] Rx#:[id number] Oral 220 540 Output: Urine 895 1100 145 Other: Voiding Method Indwelling Catheter Indwelling Catheter Indwelling Catheter - Labs CBC & Chem 7: 01/25/25 07:44 01/25/25 07:44 Labs: Abnormal Lab Results - Last 24 Hours (Table) 01/25/25 01/25/25 Range/Units 07:44 07:44 RBC 3.15 L (4.30-5.90) m/uL Hgb 8.0 L (13.0-17.5) gm/dL Hct 26.7 L (39.0-53.0) % MCHC 30.0 L (31.0-37.0) g/dL RDW 20.3 H (11.5-15.5) % Plt Count 146 L (150-450) k/uL Lymphocytes # 0.4 L (1.0-4.8) k/uL Sodium 133 L (137-145) mmol/L Chloride 92 L (98-107) mmol/L Carbon Dioxide 39 H (22-30) mmol/L BUN 67 H (9-20) mg/dL Creatinine 1.95 H (0.66-1.25) mg/dL Glucose 121 H (74-99) mg/dL Calcium 7.8 L (8.4-10.2) mg/dL Microbiology - Last 24 Hours (Table) 01/22/25 10:13 Gram Stain - Preliminary Pleural Fluid Body Fluid Culture - Preliminary Assessment and Plan Plan: Assessment: 1. Acute kidney injury secondary to ATN. Renal function improved with c reatinine 1.95 today. No hydronephrosis noted on CT. 2. Chronic kidney disease stage IIIb with baseline creatinine near 1.5 secondary to nephrosclerosis. 3. A-fib with RVR now on oral meds. 4. Acute GI bleed status post blood transfusions this admission. Component of chronic kidney disease. Colonoscopy showed hemorrhoids and diverticulosis with no active bleeding. On Aranesp. 5. Volume overload. Status post left-sided thoracentesis with 1.8 L drained this admission. 6. Acute on chronic systolic CHF ejection fraction of 15 to 20% with moderate to severe pulmonary hypertension. 7. Hypokalemia from diuresis. Replaced. 8. Hypomagnesemia from diuresis. On oral magnesium oxide. Stable. Plan: Maintain IV Lasix. Also on dobutamine. Will benefit from SGLT2 inhibitor. UA from this admission suggestive of UTI. Avoid nephrotoxins. Continue to monitor renal function and urine output. Hold midodrine for systolic blood pressure greater than 110. Wean FiO2. Repeat UA.
[2025-01-25 10:57] LABS: Appearance,Urine Cloudy (Clear); Bacteria,Urine Occasional /hpf; Bilirubin,Urine Negative (Negative); Blood,Urine Moderate (Negative); Color,Urine Light Yellow; Glucose,Urine (UA) Negative (Negative); Ketones,Urine Negative (Negative); Leukocyte Esterase,Urine Large (Negative); Mucus,Urine Rare /hpf; Nitrite,Urine Positive (Negative); Protein,Urine Negative (Negative); RBC,Urine 39 /hpf (0-5); Specific Gravity,Urine 1.011 (1.001-1.035); Squamous Epithelial Cell,Urine 1 /hpf (0-4); Urobilinogen,Urine <2.0 mg/dL (<2.0); WBC,Urine 109 /hpf (0-5)
--- NOTE | 2025-01-25 11:19 | P.PN ---
Subjective Progress Note Date: 01/25/25 Principal diagnosis: Hospital course: Acute lower GI bleeding On 01/11/2025, the patient is being seen for a follow-up. The patient this morning is calm and comfortable. Slightly bronchospastic and wheezy on examination. Nevertheless, he denies having any significant shortness of breath and the patient remains on 2 L of oxygen by nasal cannula. The patient is post acute GI bleeding with secondary anemia. The patient underwent a colonoscopy on 01/07/2025 and the patient was found to have a normal appearing colon from rectum to cecum. No evidence of any colitis or malignancy. No evidence of any active bleeding. There was scattered sigmoid diverticulosis and grade 2 hemorrhoids. During the course of this hospitalization, the patient received a total of 4 units of packed RBC, 2 units of fresh frozen plasma and 1 unit of platelet. The patient is currently on IV hydration. Hemoglobin is at 7.8. On a separate note, the patient is in atrial fibrillation. He remains on amiodarone at 0.5 mg/min. Rate is under better control for now. His echocardiogram done on 01/07/2025 showed evidence of severe LV dysfunction with an ejection fraction of 15 to 20% along with low-grade aortic stenosis without any regurgitation, moderate to severe pulmonary pretension with estimated right ventricular systolic pressure of 54. The patient remains on IV Lasix 40 mg every 12 hours. Fluid balance is negative over the past 24 hours and this is in the order of - 2.6 L. Chest x-ray from today is still showing pulm vascular congestion and cardiomegaly and small bilateral pleural effusions. On today's evaluation of 01/12/2025, the patient is stable on 2 L of oxygen by nasal cannula. No reported GI bleeding. Hemoglobin stable at 8.1. Platelet co unt is at 89. BUN 35 with a creatinine 1.7. Sodium is at 134 with a potassium level is at 4.0. The patient continues to diurese with IV Lasix. The patient is receiving Lasix 40 mg IV every 12 hours. Overall fluid balance has been -2.6 L over the past 24 hours and the patient is headed towards another 1.1 L negative fluid balance for today. The follow-up chest x-ray from today shows improvement in the pulm vascular congestion. There is still persistent pulm vessel congestion bilateral pleural effusion along with cardiomegaly. The patient is awake and alert. Denies having any specific complaints. Denies having any chest pain. No other significant events overnight. He is known to have systolic heart failure with severe LV dysfunction ejection fraction of 15 to 20%. He also has a low-grade aortic stenosis without regurgitation and moderate to severe pulm hypertension with a PA pressure of 54. On today's evaluation of 01/13/2025, the patient is doing well and he has no specific complaints. He remains on 2 L of oxygen by nasal cannula. He remains in atrial fibrillation. He is receiving Lasix and he was given 40 mg of IV Lasix and additional dose in addition to his oral medication. His fluid balance is -1.1 L over the past 24 hours. Chest x-ray still showing findings consistent with CHF with pulm vascular congestion and cardiomegaly and blunting of the costophrenic angles indicative of an underlying pleural effusions bilaterally. The patient denies having any significant chest pain or shortness of breath no evidence of any GI bleeding. Hemoglobin remained stable at 8 with a white cell count of 7.9. Platelet count is 104. BUN is 40 with a creatinine of 1.6 and a sodium levels at 133. The patient is on metoprolol 12.5 mg p.o. twice daily and amiodarone 400 mg p.o. twice daily and midodrine was also added by nephrology. Being given Aranesp for chronic anemia. On 01/14/2025, the patient is calm and comfortable. Shows no signs of any GI bleeding. Continues to have some pulm vessel congestion and crackles in lung base bilaterally and the patient is currently on 2 L of oxygen by nasal cannula. The patient is currently on oral Lasix. Remains on DuoNeb nebulized treatments [id number]. Remains on metoprolol 12.5 mg p.o. twice a day. No antic oagulants for now. Hemoglobin stable at 8 from yesterday. No new labs are available from today. On 01/15/2025, patient is calm and comfortable. No evidence of any GI bleeding. No respiratory difficulties. The patient remains on Lasix 40 mg p.o. twice a day. Nephrology added midodrine. The patient was consultation with a hemoglobin of 8 and platelet count of 155. BUN is 16 with a creatinine of 2.19 and nephrology on the case. Hemoglobin stable at 8.0. No other significant events overnight. Nephrology on the case. Midodrine was added. Noted the patient has impaired LV function with an EF of around 15 to 20% with moderate severe pulmonary hypertension. Patient was seen today on 01/21/2025, this patient was last seen by Dr. Lai on 01/15/2025, he is found as he was in the ICU with multiple comorbidities including severe LV dysfunction, moderate-severe pulmonary hypertension, acute GI bleeding, and eventually Dr. Lai signed off this patient and we have not been seeing until I was called to see him again today as he was transferred back to the ICU for dobutamine infusion. Apparently the patient has severe LV dysfunction and recurrent episodes of congestive heart failure being followed by cardiology, his ejection fraction is around 15 to 20% it is also associated with moderate severe pulmonary hypertension. Patient is now on dobutamine at 5 mcg/kg/min he is on Lasix 60 mg IV push every 12 hours, and he is on room air. Not in any distress, WBC count is 5.5 hemoglobin 7.9 basic metabolic profile is normal BUN is 65 creatinine 2.16, chest x-ray yesterday showed evidence of interstitial edema and small left-sided pleural effusion. Patient was seen today on follow-up 01/22/2025, remains in the ICU, continues to have abnormal chest x-ray and abnormal ultrasound of the chest, hence I went ahead and performed a left-sided thoracentesis on this patient, and I was able to drain 1800 cc of fluid. Patient tolerated the procedure well, patient was placed on dobutamine when he was transferred out to the ICU, today I cut down his dobutamine to 2.5 mcg/kg/min, patient remains on diuretics with good response to diuretics, looking at his previous echocardiogram, patient had ischemic cardiomyopathy with ejection fraction of 40 to 45%, however recent admission revealed his ejection fraction is down to 15 to 20%. Patient is quite ill, he has multiple comorbidities, and I will continue to monitor the patient in the ICU today although he felt much better after left-sided thoracentesis which was done with ultrasound guidance at bedside. WBC count today is 5.3 hemoglobin 8.1 electrolytes are normal bicarb is 35 BUN is 63 creatinine 2.16 Seen today on 01/23/2025, patient remains in the ICU, remains on dobutamine at 2.5 mcg/kg/min on 6 L high flow nasal cannula, patient refused to go on BiPAP yesterday. Remains on Lasix 60 mg IV push twice daily, patient has good urine output good response to diuretics and dobutamine, but nonetheless continues to have evidence of congestive heart failure based on chest x-ray findings and based on clinical findings. Yesterday I was able to drain 1800 cc of transudative pleural effusion from the left pleural space, but seems to be reaccumulating slowly as noted on the chest x-ray today. Patient clearly has severe LV dysfunction, and his overall prognostic picture is extremely poor. I discussed his condition with the patient, and he clearly would like to have DNR CODE STATUS, does not want to go on life support, and if his condition gets worse patient would like to pass peacefully and comfortably. Hence CODE STATUS was changed to DNR CODE STATUS, family will be updated by the nurse on his request and his condition. Labs today show WBC of 6.6 hemoglobin is 8 apparently had an ABG last night showed a pO2 of 86 pCO2 45 pH of 7.45, basic metabolic profile is normal BUN is 66 creatinine 2.36 pleural effusion results were reviewed and it is transudative in nature with low protein and low LDH just like very normal renal Patient was seen today on 01/24/2025, remains in the ICU, had to go up on dobuta mine yesterday up to as high as 10 mg/kg/min, could not stop it as his blood pressure kept drifting down on lower doses of dobutamine, and I prefer dobutamine over norepinephrine at this point considering his severe LV dysfunction and cardiomyopathy. At this point in time dobutamine seems to be working well, he continues to diurese, continues to maintain adequate blood pressure with dobutamine, and once the dose went down blood pressure went down significantly. Patient is on 11 L high flow nasal cannula chest x-ray continues to show evidence of pulmonary edema. On BiPAP 15/5 and 40% FiO2 at times when his condition gets worse. Patient remains on diuretics, remains in negative fluid balance. Renal functioning is about the same with a BUN of 62 creatinine 2.34, electrolytes are relatively unremarkable except for low potassium of 3.4. Chest x-ray continues to show pulmonary edema and small bilateral pleural effusions remind you patient had left-sided thoracentesis few days ago, and I was able to drain 1800 cc of transudative fluid. 01/2425: Patient seen and examined at bedside today. He remains in the ICU. He is currently on BIPAP at 15/5/40%. He comes off the BIPAP during meals and is on 6L of oxygen via nasal cannula at that time. Labs today show WBC 4.9, hemoglobin 8, platelet count 146, sodium 133, 39, BUN 67, creatinine 1.95, calcium 7.8. UA shows moderate blood, large leukocyte esterase, 39 RBC, 109 WBC, rare WBC clumps, occasional bacteria and rare mucus. Chest x-ray done today shows findings in favor of CHF exacerbation versus fluid overload state, he does have underlying acute infiltrate not excluded particularly in the bilateral lower lungs, no significant change from 1 day earlier. EKG done today shows atrial fibrillation with controlled ventricular rate of 87 bpm. He continues to be on dobutamine drip at 5 mcg/kg/min along with Lasix 60 mg IVP every 12 hours and midodrine 10 mg 3 times daily. Objective - Vital Signs Vital signs: Vital Signs Temp 98.2 F 01/25/25 08:00 Pulse 80 01/25/25 10:00 Resp 32 H 01/25/25 10:00 BP 109/64 01/25/25 10:00 Pulse Ox 99 01/25/25 10:00 FiO2 40 01/25/25 08:31 Intake & Output 01/24/25 01/25/25 01/25/25 18:59 06:59 18:59 Intake Total 493.273 610.114 78.717 Output Total 895 1100 285 Balance -401.727 -489.886 -206.283 Weight 109.8 kg Intake: Intake, IV Titration 273.273 70.114 78.717 Amount DOBUTamine DRIP 500 mg In 273.273 70.114 78.717 Dextrose/Water 1 250ml. bag @ 5 MCG/KG/MIN 17.205 mls/hr IV .[id number] [facility] Rx#:[id number] Oral 220 540 Output: Urine 895 1100 285 Other: Voiding Method Indwelling Catheter Indwelling Catheter Indwelling Catheter - Exam General: Revealed 84-year-old white male in no distress on BiPAP 15/5/40% HEENT examination is grossly unremarkable. Mucous membranes are moist. No oral lesions. Neck supple. Full range of motion. No adenopathy thyromegaly or neck vein distention. Cardiovascular examination reveals irregular consistent with atrial fibrillation. No S3 or S4. No discernible murmur noted. Lungs: Crackles and rhonchi noted bilaterally at the bases Abdomen soft bowel sounds are heard. No masses or tenderness. Extremities are intact. No cyanosis clubbing or edema. Skin is without rash or lesion. Neurologic: Alert oriented x 3 no focal deficit Psychiatric: Normal mood affect and no mental status examination. - Labs CBC & Chem 7: 01/25/25 07:44 01/25/25 07:44 Labs: Abnormal Lab Results - Last 24 Hours (Table) 01/25/25 01/25/25 01/25/25 Range/Units 07:44 07:44 10:10 RBC 3.15 L (4.30-5.90) m/uL Hgb 8.0 L (13.0-17.5) gm/dL Hct 26.7 L (39.0-53.0) % MCHC 30.0 L (31.0-37.0) g/dL RDW 20.3 H (11.5-15.5) % Plt Count 146 L (150-450) k/uL Lymphocytes # 0.4 L (1.0-4.8) k/uL Sodium 133 L (137-145) mmol/L Chloride 92 L (98-107) mmol/L Carbon Dioxide 39 H (22-30) mmol/L BUN 67 H (9-20) mg/dL Creatinine 1.95 H (0.66-1.25) mg/dL Glucose 121 H (74-99) mg/dL Calcium 7.8 L (8.4-10.2) mg/dL Urine Blood Moderate H (Negative) Ur Leukocyte Esterase Large H (Negative) Urine RBC 39 H (0-5) /hpf Urine WBC 109 H (0-5) /hpf Urine WBC Clumps Rare H (None) /hpf Urine Bacteria Occasional H (None) /hpf Urine Mucus Rare H (None) /hpf Microbiology - Last 24 Hours (Table) 01/22/25 10:13 Gram Stain - Preliminary Pleural Fluid Body Fluid Culture - Preliminary Assessment and Plan Assessment: Acute hypoxic respiratory failure secondary to pulmonary edema and severe systolic dysfunction and bilateral pleural effusions Acute on chronic systolic congestive heart failure with severe LV dysfunction Severe pulmonary hypertension Acute lower GI bleeding, resolved Acute anemia secondary to above Acute non-ST elevation myocardial infarction Chronic atrial fibrillation UA suggestive of UTI 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 History of underlying asthma History of CVA Dyslipidemia History of melanoma Degenerative joint disease Status post left-sided thoracentesis, 1800 cc removed from the left pleural spac e Plan: Continue to monitor in the ICU as long as he is requiring dobutamine Continue oxygen and titrate accordingly Continue dobutamine 5mcg/kg/min, prefer dobutamine over norepinephrine Continue IV Lasix 60 mg Q12HR Continue midodrine for hypotension, hold midodrine for SBP of >110 Continue to monitor daily labs Continue to monitor I's and O's Continue bronchodilators/DuoNeb Prognosis is poor and guarded, patient agreed to DNR CODE STATUS yesterday. Will continue to follow Time with Patient: Greater than 30
[2025-01-25] MEDS: LORazepam 1 MG/0.5 ML VIAL IV STA (18:10)
[2025-01-25] MEDS: FUROSEMIDE 10 MG/ML 4 ML VIAL IV STA (18:10)
--- NOTE | 2025-01-25 18:49 | XR ---
EXAMINATION TYPE: XR chest 1V portable DATE OF EXAM: 01/25/2025 6:19 PM COMPARISON: Chest radiographs from 01/26/2024 CLINICAL INDICATION: Male, 84 years old with history of shortness of breath; [facility] TECHNIQUE: XR chest 1V portable Frontal view of the chest. FINDINGS: Lungs/Pleura: There is no evidence of pleural effusion, focal consolidation, or pneumothorax. Pulmonary vascularity: Unremarkable. Heart/mediastinum: Cardiomediastinal silhouette is prominent in size. Musculoskeletal: No acute osseous pathology. IMPRESSION: Similar Multifocal airspace opacities concerning for pneumonia versus pulmonary vascular congestion. [facility], , 01/25/2025 6:47 PM
[2025-01-25] MEDS: LORazepam 1 MG/0.5 ML VIAL IV PRN (20:15)
[2025-01-25 20:37] VITALS: TEMP 97.8
[2025-01-25] MEDS ORDERED: MORPHINE SULFATE 2 MG/ML SYRINGE IVP PRN (23:19)
[2025-01-25] MEDS ORDERED: ATROPINE OPHTH SOLN 1% 5ML BTL SUBLINGUAL PRN (23:19)
[2025-01-25] MEDS ORDERED: SCOPOLAMINE 1 MG/72 HR PATCH TRANSDERM SCH (23:30)
[2025-01-25] MEDS ORDERED: MORPHINE SULFATE 100 MG in SODIUM CHLORIDE 0.9% 90 ML IV SCH (23:45)
[2025-01-25] MEDS: MORPHINE SULFATE 4 MG/ML SYRINGE IVP PRN (23:51)
[2025-01-26 01:02] VITALS: BP 104/84; PULSE 60; RESP 40
--- NOTE | 2025-01-26 02:43 | P.PN ---
Subjective Progress Note Date: 01/25/25 89-year-old male patient with past medical history significant for coronary artery disease status post stenting 2021, ischemic cardiomyopathy with a EF 40 to 45%, history of CVA with left-sided residual deficits, hypertension, hyperlipidemia, hard of hearing, history of skin cancer who presented to ER with a complaint of blood in the stools. Patient was brought to the ER by EMS, was noted to have large bloody bowel movement, was complaining of dizziness, also complained of nausea and abdominal discomfort. Patient was afebrile on presentation, was tachycardic and hypotensive, initially was on on room air, later on required supplemental oxygen 2 L after IV fluids. WBCs 12.5, hemoglobin 5.7, came up to 7.4 after 3 units. Platelet 227. INR 1.3. Sodium 139, potassium 5.4, chloride 107, CO2 12, BUN 51, creatinine 2.03, GFR 30. Liver profile unremarkable. Chest x-ray showed small left pleural effusion with left basilar opacities, diffuse interstitial prominence. 01/07--patient was seen and examined today. Patient is afebrile, heart rate 91, respiratory rate 27, blood pressure 99/56, saturating 99%, currently on BiPAP with 30% FiO2. WBCs 12.1, hemoglobin 8.3, platelet 158. Sodium 143, potassium 4.9, BUN 59, creatinine 2.17. Troponin was 16.5, went up to 12.2. proBNP 11,600. Patient underwent colonoscopy today which showed normal-appearing colon from rectum to cecum with no evidence of colitis or colorectal neoplasia, no active GI bleed, scattered sigmoid diverticulosis. Grade 2 hemorrhoids. 01/08--patient initially presented to ED with GI bleed, transferred to ICU for GI bleed, hemorrhagic shock, requiring Levophed, underwent EGD and colonoscopy, showed diverticular disease and hemorrhoids, required 4 unit of packed RBCs, 2 units of fresh frozen plasma, 1 unit of platelets, DDAVP, no further bleeding at this point, hemoglobin is now stable. Remains on norepinephrine. On 4 L oxygen. Cardiology following for NSTEMI. Patient is afebrile, heart rate 92, respiratory rate 27, saturating 100% on 3 L. Blood pressure is soft 93/56. Patient currently on Levophed. Chest x-ray showed pleural effusion, CHF. Echocardiogram showed severe LV dysfunction with EF less than 20%, RV enlargement, moderate to severe pulmonary hypertension, reduced aortic valve excursion/opening. WBCs 8.5, hemoglobin 8.4, platelet 120. Sodium 139, potassium 4.2, chloride 102, CO2 24, BUN 60, creatinine 2.15. UA showed large leukocyte Estrace, RBCs WBCs. Patient is currently on Zosyn. ICU, nephrology, cardiology GI has been consulted. 01/09. Patient seen and examined. Currently states he is doing okay. Patient currently on dobutamine drip. Hemoglobin this morning is 7.3. 01/10. Patient seen and examined. Sitting upright in the bed. Discussed with him regarding goals of care, he wants her daughter to make a decision regarding CODE STATUS. Denies any chest pain. Gets short of breath on exertion /. Patient seen and examined. Blood work done this morning showedW6.3, hemoglobin 7.8, platelet count 94, sodium 135, Potassium 3.5, BUN 39, creatinine 1.78, glucose 115.Vital signs temperature afebrile, heart rate 91, respiration 22, blood pressure 9761, currently on 2 L of oxygen . Patient seen and examined. Blood work done showedWBC 9.8, hemoglobin 8.1, platelet count 89, sodium 135, potassium 4, BUN 35, creatinine 1.78. Patient continues to be on 2 L of oxygen. 01/14. Patient seen and examined. Currently sitting upright in the bed. No acute issues overnight. Currently on 2 L of oxygen 01/15 Patient seen and examined. Blood work this morning showed WBC 10, hemoglobin 8, platelet count 155, sodium 132, potassium 4.3, BUN 60, creatinine 2.19. Currently on oral Lasix 40 g twice a day. Nephrology increase the dose of midodrine 01/16/2025 Patient is evaluated today in follow up on the medical floor currently sitting up in the chair. He remains on IV lasix and has continued peripheral edema. Continues on oxygen via nasal cannula on 2L with saturations of 100%. Chest xray reveals overall similar examination with cardiomegaly, diffuse interstitial prominence with small bilateral pleural effusions with probable atelectasis. Findings suggest CHF exacerbation. Superimposed infectious process is not excluded. Sodium today 137, potassium 4.5, BUN 62.4, creatinine 2.6. 01/17/2025 Patient is evaluated today in follow up. He is up sitting the chair. He is off oxygen at this time however continues with significant lower extremity edema. Wo nancy recommend to ADOLFO wrap and discussed with patient the importance of elevating legs while sitting so they are not dependent. His labs today show a BUN of 65 and creatinine of 2.9. He remains on IV lasix 40 mg twice daily. 01/18/2025 Patient is seen in follow-up today with no acute overnight issues noted. Blood pressures on the softer side although maintained on high-dose Lasix per nephrology. Nephrology recommending oral Lasix on discharge with close outpatient follow-up. Plan is for patient to go to [facility] and currently awaiting insurance authorization. Patient's hemoglobin is 7.5 and will transfuse 1 unit and follow-up on repeat labs. Kidney functions continue to be elevated although slightly improved with a creatinine of 2.4 today. Social work is following and has submitted for insurance authorization which remains pending. Patient is afebrile with no reports of chest pain or shortness of breath. Patient has been tolerating diet and will continue current regimen. 01/19/2025 Patient is seen in follow-up this morning with nephrology following. Patient is continued on Lasix although kidney functions are worsening and 2.6 today. Patient continues to have significant lower extremity swelling 2+ pitting and also noted to have multiple blisters of the lower extremities that are intact although concerns with continued volume overload. Patient continues on high- dose Lasix and discussed with nephrology will reconsult cardiology as patient may benefit from dobutamine. Patient is afebrile with no reports of chest pain although continues to report shortness of breath. Plan is for patient to go to [facility] although continuing to await insurance authorization. Patient's hemoglobin is 8.0 status post 1 unit of PRBC yesterday with no active bleeding noted. 01/20/2025 Patient is seen in follow-up this morning continuing to have significant lower extremity swelling and some shortness of breath. Will obtain a chest x-ray and continue with current regimen. Plan is for patient to move to [facility] for initiation of dobutamine drip per cardiology as patient continues to have significant edema and vascular congestion with hypotension. Nephrology and cardiology following and adjusting medications. Creatinine slightly improved at 2.3 and potassium is 3.7. Will follow-up on repeat labs. Replace electrolytes per protocol. 01/21/2025 Patient is seen in follow-up today and being followed by cardiology along with nephrology maintained in the ICU as patient was placed on dobutamine drip for hypotension and continued ongoing persistent extensive edema. Patient continues to report significant shortness of breath and requesting BiPAP. Will have respiratory adjust and recommend BiPAP at night with standard settings. Creatinine slightly improved although minimally and currently 2.1 with nephrology following and is continued on high-dose IV Lasix showing some improvement in the lower extremity swelling. Patient is extremely weak and would recommend physical therapy daily. 01/22/2025 Patient is seen in follow-up continues to be in the ICU with multiple consultations following. Functions remain elevated at 2.16 creatinine and on high-dose Lasix along with dobutamine with cardiology and nephrology following. Patient continues to have significant shortness of breath with pulmonary following order chest ultrasound with plans for today. Patient requiring 9 L high flow and has been using BiPAP at night. Hemoglobin is stable above 8 with no active bleeding noted and recommend to transfuse if 7 or less. Patient is afebrile encourage incentive spirometer use at least 10 times every hour while awake. 01/25/2025 Patient continues to be in the ICU today maintained on BiPAP and reports has been wearing more frequently as patient continues to report significant shortness of breath. Patient is maintained on dobutamine drip and per nursing staff is attempting to wean. Patient continues on IV push Lasix with nephrology and cardiology following. Per nursing staff working on possible select specialties although will likely not qualify and may require ECF that can manage BiPAP as patient is becoming BiPAP dependent. Patient reports is eating although not eating much and denies significant pain. Patient denies palpitations at this time. REVIEW OF SYSTEMS: CONSTITUTIONAL: No fever, no malaise,. Reports of fatigue CARDIOVASCULAR: No chest pain, no palpitations, no syncope. PULMONARY: Reports continued shortness of breath with no significant improvement GASTROINTESTINAL: No diarrhea, no nausea, no vomiting, no abdominal pain. Not much of an appetite NEUROLOGICAL: No headaches, reports of generalized weakness PHYSICAL EXAMINATION: GENERAL: The patient is alert and oriented x 23, ill looking, elderly appearing, obese, hard of hearing, sitting up in bed on BiPAP HEENT: Pupils are round and equally reacting to light. EOMI. No scleral icterus. No conjunctival pallor. Normocephalic, atraumatic. No pharyngeal erythema. No th yromegaly. CARDIOVASCULAR: S1 and S2 muffled PULMONARY: Diminished breath sounds at the bases bilaterally no wheezing, bilateral crackles noted at the bases. Scattered ronchi. Insignificant upper br onchial congestion ABDOMEN: Soft, obese, nontender, nondistended, normoactive bowel sounds. No palpable organomegaly. MUSCULOSKELETAL: No joint swelling or deformity. EXTREMITIES: No cyanosis, clubbing, or pedal edema. Continues with 1-2+ pitting lower extremity edema. NEUROLOGICAL: Gross neurological examination did not reveal any focal deficits. Diffusely weak SKIN: Hyperkeratotic growth seen on the left side of neck, growth also seen on both ears, blisters noted of bilateral lower extremities that are intact with no redness or purulence noted. 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 Hypertension Hyperlipidemia Hard of hearing History of CVA with left-sided weakness Acute hypoxic respiratory failure secondary to CHF exacerbation History of skin cancer History of melanoma Osteoarthritis History of asthma Obesity with a BMI of 32.7 GI prophylaxis DVT prophylaxis No code Plan: Patient is status post EGD showing no active bleed, colonoscopy was negative for bleed likely diverticular which has stopped. Hemoglobin is stable today with no active bleeding. Follow-up on repeat labs and transfuse if 7 or less Pulmonary following as well and underwent chest ultrasound and is status post thoracentesis on the left with approximately 2 L removed Last week, specimen sent for cytology as well Patient continues to have significant shortness of breath and recommend to wean FiO2 as tolerated. Per nursing staff patient is mostly requiring BiPAP and desats quickly when off. Per nursing staff looking at possible select specialties where an ECF that can manage continuous BiPAP. Nephrology following maintained on IV Lasix as well as dobutamine drip and continues with significant volume overload and hypotension. Maintained on midodrine. Per nursing staff dopamine is being weaned as tolerated Patient continues with significant lower extremity swelling 2+ pitting edema and not ambulatory very much. Would recommend PT/OT therapy daily when respiratory status is improved Encourage incentive parameter use at least 10 times every hour while awake No further bleeding noted recommending outpatient follow-up with GI and general surgery Continuing to hold anticoagulation secondary to GI bleed and low hemoglobin. Patient to follow-up outpatient regarding resuming Per nursing staff patient was made no code and will be looking into possible LTAC or ECF that can manage BiPAP Due to multiple complex medical issues, overall prognosis is extremely guarded The impression and plan of care has been dictated by Leeanne Castanon, Nurse Practitioner as directed. Dr. Ana MD I have performed a history and physical examination and medical decision making of this patient, discussed the same with the dictator, and agree with the dictators assessment and plan as written, documented as a scribe. Based on total visit time, I have performed more than 50% of this visit. Objective - Vital Signs Vital signs: Vital Signs Temp 97.8 F 01/25/25 20:00 Pulse 60 01/26/25 00:00 Resp 40 H 01/26/25 00:00 BP 104/84 01/26/25 00:00 Pulse Ox 68 L 01/26/25 00:00 FiO2 100 01/25/25 23:29 Intake & Output 01/25/25 01/25/25 01/26/25 06:59 18:59 06:59 Intake Total 610.114 112.269 84.591 Output Total 1100 570 125 Balance -489.886 -457.731 -40.409 Weight 109.8 kg Intake: Intake, IV Titration 70.114 112.269 84.591 Amount DOBUTamine DRIP 500 mg In 70.114 112.269 84.591 Dextrose/Water 1 250ml. bag @ 5 MCG/KG/MIN 17.205 mls/hr IV .[id number] [facility] Rx#:[id number] Oral 540 Output: Urine 1100 570 125 Other: Voiding Method Indwelling Catheter Indwelling Catheter Indwelling Catheter - Labs CBC & Chem 7: 01/25/25 07:44 01/25/25 15:29 Labs: Abnormal Lab Results - Last 24 Hours (Table) 0301/25/25 01/25/25 Range/Units 07:44 07:44 10:10 RBC 3.15 L (4.30-5.90) m/uL Hgb 8.0 L (13.0-17.5) gm/dL Hct 26.7 L (39.0-53.0) % MCHC 30.0 L (31.0-37.0) g/dL RDW 20.3 H (11.5-15.5) % Plt Count 146 L (150-450) k/uL Lymphocytes # 0.4 L (1.0-4.8) k/uL Sodium 133 L (137-145) mmol/L Chloride 92 L (98-107) mmol/L Carbon Dioxide 39 H (22-30) mmol/L BUN 67 H (9-20) mg/dL Creatinine 1.95 H (0.66-1.25) mg/dL Glucose 121 H (74-99) mg/dL Calcium 7.8 L (8.4-10.2) mg/dL Urine Blood Moderate H (Negative) Ur Leukocyte Esterase Large H (Negative) Urine RBC 39 H (0-5) /hpf Urine WBC 109 H (0-5) /hpf Urine WBC Clumps Rare H (None) /hpf Urine Bacteria Occasional H (None) /hpf Urine Mucus Rare H (None) /hpf Microbiology - Last 24 Hours (Table) 01/22/25 10:13 Gram Stain - Preliminary Pleural Fluid Body Fluid Culture - Preliminary
--- NOTE | 2025-01-28 10:13 | P.DS ---
Providers Date of admission: 01/06/25 09:18 Expected date of discharge: 01/26/25 Attending physician: Marky Almendarez MD Consults: 01/06/25 09:18 Consult Physician Stat Consulting Provider: Luiz Phillips Consult Reason/Comments: critical care Do you want consulting provider notified?: Already Contacted 01/06/25 12:30 Consult Physician Routine Consulting Provider: Lenin Tovar Consult Reason/Comments: Arhythmias Do you want consulting provider notified?: Already Contacted 01/06/25 15:03 Consult Physician Routine Consulting Provider: Roxana Gomes Consult Reason/Comments: BO on CKD, Hyperkalemia Do you want consulting provider notified?: Yes 01/19/25 19:09 Consult Physician Urgent Consulting Provider: Karen Fam Consult Reason/Comments: chf, worsening kidney function, on IV lasix, ?dobutamine Do you want consulting provider notified?: Yes Primary care physician: Yuli Doug Lds Hospital Course: Preliminary cause of Severe systolic dysfunction with bilateral pleural effusions and severe pulmonary hypertension with respiratory failure Final diagnosis Severe anemia: Acute blood loss anemia status post EGD with no active bleeding noted, likely secondary to diverticular bleed Hemorrhagic shock BO on CKD: prerenal secondary to hypovolemia, hypotension 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 Hypertension Hyperlipidemia Hard of hearing History of CVA with left-sided weakness Acute hypoxic respiratory failure multifactorial secondary to CHF exacerbation with severe systolic dysfunction and bilateral pleural effusions History of skin cancer History of melanoma Osteoarthritis History of asthma Obesity with a BMI of 32.7 GI prophylaxis DVT prophylaxis No code Discharge disposition Patient has . According to nursing documentation, time of was 01/26/2025 at 0009 after being placed on comfort care orders only per family. Total time taken greater than 35 minutes Hospital course This is an 84-year-old male who was recently admitted initially with GI bleed with severe anemia status post EGD showing no active bleeding likely secondary to diverticular bleed also noted to have hemorrhagic shock maintained in the ICU. Patient showed some minimal improvement transition to the medical surgical floor and continued to clinically decline. Patient with acute on chronic kidney disease secondary to hypovolemia and continued ongoing hypotension with acute on chronic heart failure with severe systolic dysfunction having worsening shortness of breath and continued hypotension. Patient did return back to the ICU on a dobutamine drip and continued IV Lasix with multiple consultations following. Patient continued to be significantly short of breath requiring thoracentesis on the left with 2 L removed. Patient continued on BiPAP ultimately being BiPAP dependent and desatting quickly unable to get off the BiPAP. Patient with severe cardiomyopathy with an EF of less than 20% with severe pulmonary hypertension and aortic valve stenosis requiring more oxygen demands continued to decline. Patient in significant respiratory distress family was contacted and agreeable to no code 1 day prior. Patient family at bedside did not want any further measures and were agreeable to comfort care. Comfort care orders were placed at 2355 and again patient at 0009 on 01/26/2025. Please refer to other consultation notes for further HPI. Overall prognosis was extremely poor and guarded. The impression and plan of care has been dictated by Leeanne Castanon, Nurse Practitioner as directed. Dr. Ana MD I have performed a history and examination and MDM of this patient, discussed the same with the dictator, and agree with the dictator's assessment and plan as written ,documented as a scribe. Based on total visit time, I have performed more than 50% of the visit. Patient Condition at Discharge: Critical Plan - Discharge Summary Discharge Rx Participant: No New Discharge Prescriptions: No Action Atorvastatin [Lipitor] 40 mg PO DAILY #90 tab Nitroglycerin Sl Tabs [Nitrostat] 0.4 mg SUBLINGUAL Q5M PRN PRN Reason: Chest Pain Aspirin 81 mg PO DAILY #30 tab Ferrous Sulfate [Feosol] 325 mg PO DAILY #30 tab Isosorbide Mononitrate ER [Imdur] 60 mg PO DAILY Clopidogrel [Plavix] 75 mg PO DAILY Discharge Medication List Atorvastatin [Lipitor] 40 mg PO DAILY #90 tab 07/23/22 [Rx] Clopidogrel [Plavix] 75 mg PO DAILY 08/14/22 [History] Nitroglycerin Sl Tabs [Nitrostat] 0.4 mg SUBLINGUAL Q5M PRN 09/28/24 [History] Aspirin 81 mg PO DAILY #30 tab 09/30/24 [Rx] Ferrous Sulfate [Feosol] 325 mg PO DAILY #30 tab 09/30/24 [Rx] Isosorbide Mononitrate ER [Imdur] 60 mg PO DAILY 01/06/25 [History] Follow up Appointment(s)/Referral(s): Mark Mitchell MD [STAFF PHYSICIAN] - 1-2 days Discharge/Stand Alone Forms: Outpatient Counseling Discharge Disposition: - Preliminary Cause of Preliminary Cause of : Severe congestive heart failure systolic dysfunction with respiratory failu
--- NOTE | 2025-01-28 16:28 | CDI ---
Documentation Clarification Form Date: 01/28/2025 03:20:29 PM From: Sonia Joseph RN, CCDS Email: [email or web address] Admit Date: 01/06/2025 09:18:00 AM Patient Name: Indio Oden Visit Number: [id number] Discharge Date: 01/26/2025 05:23:00 AM ATTENTION: The Clinical Documentation Specialists (CDI) and [facility] Coding Staff appreciate your assistance in clarifying documentation. Please respond to the clarification below the line at the bottom and electronically sign. The CDI & [facility] Coding staff will review the response and follow-up if needed. Please note: Queries are made part of the Legal Health Record. If you have any questions, please contact the author of this message via ITS. Doctor Marky Almendarez The progress notes indicate the patient was given DDAVP and platelet transfusion for reversal of Plavix. Based on this information and the findings below, is there an additional diagnosis that is clinically appropriate for this patient? History/Risk Factors: CAD and MT with stenting, takes ASA and Plavix, ischemic cardiomyopathy and CVA. Per H&P: "Presented with bright red blood in the stools, initial hemoglobin 5.7, received 3 unit of packed RBCs, 2 units of FFP, 1 unit of platelet, DDAVP." Clinical Indicators: 01/06 ED: "DDAVP and platelet transfusion ordered for reversal of Plavix." 01/06 H&P: "Presented with bright red blood in the stools, initial hemoglobin 5.7, received 3 unit of packed RBCs, 2 units of FFP, 1 unit of platelet, DDAVP." 01/06 GI Consult: "Hold Aspirin and Plavix." 01/06 Surgery consult: "EMS reported patient had about 2 L of blood loss between the house and the ER. Acute GI bleed with maroon stools. Continue IV Protonix. Continue to hold Plavix." 01/11 Cardiology: "Persistent atrial fibrillation. The patient is currently on Amiodarone 400 p.o. b.i.d. He is not a candidate for anticoagulation at this time given the GI bleed." 01/06 PT/PTT/INR 14.0/20.9/1.3; Hgb 5.7 EBL: approx 2L 3 Colonoscopy: "No active GI bleed noted. Scattered sigmoid diverticulosis." Treatment: Hold Aspirin and Plavix; IV Protonix 40mg x1 on 01/06; IV Protonix 40mg BID 01/06-01/15; s/p EGD and colonoscopy as above IV Fluid: 1L 0.9 NS IV bolus x1 on 01/06; Transfusions: 4 units PRBC's on 01/06; 1-unit PRBC's on 01/18; 1-unit Platelets on 01/06; 2 units FFP on 01/06 Reversal agent: IV Desmopressin Acetate 28mcg x1 on 01/06 Is there an additional diagnosis that is clinically appropriate for this patient? [ x ] GI Hemorrhage from diverticular bleed due to Plavix and Aspirin [ ] Coagulopathy due to Aspirin and Plavix [ ] Other, please specify [ ] Unable to determine MTDD
== END 2025-01-26 05:23 | disposition expired | DRG 813 ==
LOC: EC 08:31 → SUPCPDRO 08:31 → 2SICU 09:18 → 3SCARD 01-13 19:07 → 6NMEDSUR 01-15 11:50 → 2SICU 01-20 14:40
PROVIDERS: ADMIT Internal Medicine; ATTEND Internal Medicine
PROC: 30233N1 Transfusion of Nonautologous Red Blood Cells into Peripheral Vein, Percutaneous Approach (ICD-10-PCS; 2025-01-06)
PROC: 3E033XZ Introduction of Vasopressor into Peripheral Vein, Percutaneous Approach (ICD-10-PCS; 2025-01-06)
PROC: 6A550Z2 Pheresis of Platelets, Single (ICD-10-PCS; 2025-01-06)
PROC: 30233K1 Transfusion of Nonautologous Frozen Plasma into Peripheral Vein, Percutaneous Approach (ICD-10-PCS; 2025-01-06)
PROC: 6A550Z0 Pheresis of Erythrocytes, Single (ICD-10-PCS; 2025-01-06)
PROC: 30233R1 Transfusion of Nonautologous Platelets into Peripheral Vein, Percutaneous Approach (ICD-10-PCS; 2025-01-06)
PROC: 0DJ08ZZ Inspection of Upper Intestinal Tract, Via Natural or Artificial Opening Endoscopic (ICD-10-PCS; principal; 2025-01-06 08:00)
PROC: 0DJD8ZZ Inspection of Lower Intestinal Tract, Via Natural or Artificial Opening Endoscopic (ICD-10-PCS; 2025-01-07)
PROC: 5A09357 Assistance with Respiratory Ventilation, Less than 24 Consecutive Hours, Continuous Positive Airway Pressure (ICD-10-PCS; 2025-01-07)
PROC: 0W9B3ZZ Drainage of Left Pleural Cavity, Percutaneous Approach (ICD-10-PCS; 2025-01-22)
DX: D68.32 Hemorrhagic disorder due to extrinsic circulating anticoagulants (principal); K57.31 Diverticulosis of large intestine without perforation or abscess with bleeding; I21.A1 Myocardial infarction type 2; J96.01 Acute respiratory failure with hypoxia; N17.0 Acute kidney failure with tubular necrosis; I50.43 Acute on chronic combined systolic (congestive) and diastolic (congestive) heart failure; R57.0 Cardiogenic shock; R57.8 Other shock; C79.9 Secondary malignant neoplasm of unspecified site; K59.39 Other megacolon; J91.8 Pleural effusion in other conditions classified elsewhere; I69.354 Hemiplegia and hemiparesis following cerebral infarction affecting left non-dominant side; I13.0 Hypertensive heart and chronic kidney disease with heart failure and stage 1 through stage 4 chronic kidney disease, or unspecified chronic kidney disease; I27.20 Pulmonary hypertension, unspecified; N18.32 Chronic kidney disease, stage 3b; E66.9 Obesity, unspecified; J45.909 Unspecified asthma, uncomplicated; I35.0 Nonrheumatic aortic (valve) stenosis; I48.19 Other persistent atrial fibrillation; L97.911 Non-pressure chronic ulcer of unspecified part of right lower leg limited to breakdown of skin; L97.921 Non-pressure chronic ulcer of unspecified part of left lower leg limited to breakdown of skin; D62 Acute posthemorrhagic anemia; R18.8 Other ascites; E87.20 Acidosis, unspecified; I83.018 Varicose veins of right lower extremity with ulcer other part of lower leg; I83.028 Varicose veins of left lower extremity with ulcer other part of lower leg; Z66 Do not resuscitate; Z51.5 Encounter for palliative care; T44.5X5A Adverse effect of predominantly beta-adrenoreceptor agonists, initial encounter; I49.1 Atrial premature depolarization; E87.6 Hypokalemia; T50.2X5A Adverse effect of carbonic-anhydrase inhibitors, benzothiadiazides and other diuretics, initial encounter; E83.42 Hypomagnesemia; I25.82 Chronic total occlusion of coronary artery; I49.3 Ventricular premature depolarization; K44.9 Diaphragmatic hernia without obstruction or gangrene; K64.1 Second degree hemorrhoids; H91.90 Unspecified hearing loss, unspecified ear; R22.1 Localized swelling, mass and lump, neck; I25.10 Atherosclerotic heart disease of native coronary artery without angina pectoris; E86.1 Hypovolemia; E78.5 Hyperlipidemia, unspecified; M19.90 Unspecified osteoarthritis, unspecified site; R00.0 Tachycardia, unspecified; E87.5 Hyperkalemia; I25.5 Ischemic cardiomyopathy; I95.89 Other hypotension; K29.80 Duodenitis without bleeding; K29.70 Gastritis, unspecified, without bleeding; Z85.820 Personal history of malignant melanoma of skin; Z68.32 Body mass index [BMI] 32.0-32.9, adult; Z95.5 Presence of coronary angioplasty implant and graft; Z85.828 Personal history of other malignant neoplasm of skin; I25.2 Old myocardial infarction; Z86.14 Personal history of Methicillin resistant Staphylococcus aureus infection; Z87.891 Personal history of nicotine dependence; Z79.02 Long term (current) use of antithrombotics/antiplatelets; Z79.82 Long term (current) use of aspirin; Z79.899 Other long term (current) drug therapy; T45.525A Adverse effect of antithrombotic drugs, initial encounter; T39.015A Adverse effect of aspirin, initial encounter
CPT/HCPCS: 36415; 36430; 36600; 43235; 45378; 71045; 74176; 76604; 80048; 80053; 81001; 82272; 82465; 82805; 82945; 83540; 83550; 83605; 83615; 83735; 83880; 84132; 84145; 84157; 84484; 85025; 85027; 85610; 85730; 86850; 86900; 86901; 86920; 87070; 87205; 87636; 88108; 88305; 88341; 88342; 93005; 93306; 94640; 94660; 94760; 96361; 96365; 96366; 96375; 99291